=== PATIENT | female | born 1935 | race Caucasian/White ===

== ENCOUNTER 2022-08-08 13:12 | Outpatient (OUT) | payer MEDICARE, SELFPAY ==
--- NOTE | 2022-08-08 13:15 | MM_ITS ---
Patient: NINA GEORGE Exam Date: 08/08/2022 : 1935 Gender:F Ordering : DR YURY MAK D.O. Admission #: [id number] Family : Order #: [id number] CLICK HERE TO VIEW EXAM RADIOLOGY REPORT PROCEDURE: MM TOMOSYNTHESIS SCREENING BI COMPARISON: MG MAMM SCREEN 3D VALERIY CAD, 08/04/2021. INDICATIONS: Screening Calculator Name NCI Breast Cancer Risk Assessment Tool 5 Year Breast Cancer Risk Not Applicable. Lifetime Breast Cancer Risk Not Applicable. Personal Breast Cancer No Personal Ovarian Cancer No Treatments None Family Cancers Sister with breast cancer at age 54; Father with panc/liver cancer at age 76. LOCATION: [facility] BREAST COMPOSITION: Scattered areas fibroglandular density. FINDINGS: DIAGNOSTIC CATEGORY 2--BENIGN FINDING: RIGHT BREAST: No significant suspicious finding. Scattered benign-appearing calcifications are present. No significant change has occurred. LEFT BREAST: No significant suspicious finding. Stable asymmetries. No significant change has occurred. RECOMMENDATIONS: ROUTINE MAMMOGRAM AND CLINICAL EVALUATION IN 12 MONTHS. PLEASE NOTE: A NORMAL MAMMOGRAM DOES NOT EXCLUDE THE POSSIBILITY OF BREAST CANCER. A CLINICALLY SUSPICIOUS PALPABLE LUMP SHOULD BE BIOPSIED. Dictated by: Juan Aviles M.D. on 08/08/2022 at 14:57 Approved by: Juan Aviles M.D. on 08/08/2022 at 15:02
== END 2022-08-08 13:13 ==
LOC: MAMMO 13:12
PROVIDERS: PCP Internal Medicine; Visit Provider Internal Medicine
DX: Z12.31 Encounter for screening mammogram for malignant neoplasm of breast (principal); Z80.3 Family history of malignant neoplasm of breast; Z80.0 Family history of malignant neoplasm of digestive organs
CPT/HCPCS: 77063; 77067

== ENCOUNTER 2022-08-14 08:47 | Day surgery (SDC) | payer MEDICARE, SELFPAY ==
[2022-08-14 09:00] VITALS: BP 137/87; PULSE 62; RESP 16; TEMP 36.3; O2SAT 100
[2022-08-14] MEDS: BUPIVACAINE HCL 0.25% PF 25 MG/10 ML VIAL INJ (09:35)
[2022-08-14] MEDS: TRIAMCINOLONE ACETONIDE 40 MG/ML VIAL INJ (09:36)
[2022-08-14] MEDS: LIDOCAINE HCL 2% PF 100 MG/5 ML VIAL INJ (09:36)
[2022-08-14 09:37] VITALS: BP 148/87; PULSE 78; RESP 18; O2SAT 96
--- NOTE | 2022-08-14 09:38 | W.PM.PROCNOT ---
Date of procedure: 08/14/22 Pre-op diagnosis: lumbobsacral spondylosis Post-op diagnosis: same Procedure: Bilateral L3, 4, 5 medial branch block Medications: Bupivacaine 0.25% 4cc The patient was seen and examined in the preoperative holding area.? An informed consent was obtained and placed on the chart.? The patient was brought to the medical procedure unit and placed in the prone position.? A timeout was completed verifying correct patient, procedure site, positioning, plan, and special equipment.? Using aseptic technique, the needle was placed at left L3. Under direct fluoroscopic visualization a Quincke-tipped spinal needle was advanced to the junction of the superior articulating process with the transverse process at the designated medial branch segment.? Preceded by negative aspiration, the above-mentioned injectate was placed in 1 mL aliquots.? The procedure was repeated at left L4, 5.? The needle was removed and insertion site was covered. The same procedure, at the same levels, was completed on the right side. The patient was taken to the postprocedural recovery area and monitored for an appropriate length of time before found suitable for discharge in the company of a responsible adult. Surgeon: Trudy Bridges Condition: stable
[2022-08-14 11:08] VITALS: BP 146/69; PULSE 68; RESP 18; O2SAT 96
== END 2022-08-14 09:43 | disposition home or self-care (01) ==
PROVIDERS: PCP Internal Medicine; Visit Provider Anesthesiology
DX: M47.817 Spondylosis without myelopathy or radiculopathy, lumbosacral region (principal)
CPT/HCPCS: 64493; 64494

== ENCOUNTER 2022-08-18 14:33 | Emergency (ER) | payer MEDICARE, SELFPAY ==
[2022-08-18] VITALS (11 sets, daily range): BP systolic 129–169; BP diastolic 88–95; PULSE 63–81; RESP 11–22; TEMP 37.1; O2SAT 93–98; BMI 20.8
--- NOTE | 2022-08-18 14:46 | ECG_ITS ---
[facility] Test Date: 2022-08-18 Pat Name: NINA GEORGE Department: Room: - Gender: Female [employer]: : 1935 Requested By: [id number] Order Number: [id number] Reading MD: DORINDA HUDDLESTON Measurements Intervals [place] Rate: 60 P: 52 WY: 130 QRS: 56 QRSD: 78 T: 18 QT: 398 QTc: 400 Interpretive Statements 1100 Sinus rhythm 1102 Sinus arrhythmia 3434 Septal myocardial infarction, age undetermined [address] depression 9150 abnormal ECG No previous ECG available for comparison Electronically Signed On 08-21-2022 7:46:27 EDT by DORINDA HUDDLESTON
--- NOTE | 2022-08-18 14:48 | CT_ITS ---
[address] [address] Patient Name: NINA GEROGE MRN: [id number] date: 1935 Sex: F Assigned Patient Location: ER Current Patient Location: ER Accession/Order Number: [id number] Exam Date: 08/18/2022 14:55 Report Date: 08/18/2022 15:34 At the request of: SANTIAGO GONZALEZ Procedure: CT stroke head/brain wo con EXAMINATION: CT stroke head/brain wo con TECHNIQUE: Axial CT images were obtained through the brain. Sagittal and coronal reformatted images were also obtained. Dose reduction techniques were achieved by using automated exposure control and/or adjustment of mA and/or kV according to patient size and/or use of iterative reconstruction technique. HISTORY: rule out stroke, arm/leg numb tingling COMPARISON: 11/26/2017 FINDINGS: Intracranial Bleed: No evidence for acute intracranial bleed. Intracranial Mass: No evidence for mass lesion. No mass effect or midline shift. Extra-axial spaces: There is mild cerebral atrophy and proportional ventricular enlargement. White/Wal[place] Matter: No acute cortical infarct. Moderate periventricular white matter chronic small vessel ischemic change. Skull/Scalp: No evidence for skull fracture or lesion. Orbits and sinuses: The orbits appear unremarkable. The visualized paranasal sinuses are clear. IMPRESSION: No acute intracranial pathology. Electronically authenticated by: RACHID MANCUSO Date: 08/18/2022 15:34
[2022-08-18 15:05] LABS: Glucometer 106 mg/dL (74-106)
[2022-08-18 15:13] LABS: Basophils Percent Auto 0.5 % (0.2-2.0); Eosinophils Absolute Auto 0.1 10^3/uL (0.0-0.7); Eosinophils Percent Auto 0.9 % (0.9-7.0); Hematocrit 40.2 % (36.0-48.0); Immature Granulocytes Abs Auto 0.04 10^3/uL (0.00-0.03); Immature Granulocytes Pct Auto 0.5 % (0.0-0.5); Lymphocytes Absolute Auto 1.5 10^3/uL (1.2-3.8); Lymphocytes Percent Auto 17.8 % (20.5-60.0); Mean Corpuscular HGB Conc 32.3 g/dL (29.9-35.2); Mean Corpuscular Hemoglobin 28.6 pg (26.7-34.0); Mean Corpuscular Volume 88.5 fL (81.0-99.0); Monocytes Absolute Auto 0.9 10^3/uL (0.3-0.8); Monocytes Percent Auto 11.4 % (1.7-12.0); Neutrophils Absolute Auto 5.7 10^3/uL (1.4-6.5); Neutrophils Percent Auto 68.9 % (43.0-75.0); Platelet Count 221 10^3/uL (150-450); Red Blood Count 4.54 10^6/uL (4.20-5.40); Red Cell Distribution Width 13.4 % (11.0-15.0); White Blood Count 8.2 10^3/uL (4.0-11.0)
[2022-08-18] MEDS: 0.9 % SODIUM CHLORIDE 1,000 ML 100 ML IV (15:16)
[2022-08-18 15:31] LABS: Alanine Aminotransferase 13 U/L (14-59); Albumin Level 3.6 g/dL (3.4-5.0); Alkaline Phosphatase 49 U/L (46-116); Anion Gap 13.3; Aspartate Amino Transferase 15 U/L (15-37); BUN Creatinine Ratio 21.7; Bilirubin Total 0.3 mg/dL (0.2-1.0); Calcium 8.7 mg/dL (8.5-10.1); Carbon Dioxide 26.6 mmol/L (21.0-32.0); Chloride 101 mmol/L (98-107); Estimated GFR (African America >60 (>=60); Estimated GFR (Non-African Ame 58 (>=60); Globulin 3.7 g/dL; Glucose 110 mg/dL (74-106); Magnesium 1.9 mg/dL (1.8-2.4); Partial Thromboplastin Time 26.5 sec (22.3-36.2); Potassium 3.9 mmol/L (3.5-5.1); Prothrombin Time 9.8 sec (9.0-11.6); Sodium 137 mmol/L (136-145); Total Protein 7.3 g/dL (6.4-8.2); Troponin I High Sensitivity 16.3 pg/mL (4.0-51.3)
[2022-08-18 15:32] LABS: INR <0.93
--- NOTE | 2022-08-18 16:02 | XR_ITS ---
[address] [address] Patient Name: NINA GEORGE MRN: [id number] date: 1935 Sex: F Assigned Patient Location: ER Current Patient Location: ER Accession/Order Number: [id number] Exam Date: 08/18/2022 16:00 Report Date: 08/18/2022 16:11 At the request of: SANTIAGO GONZALEZ Procedure: XR chest 1V EXAM: XR chest 1V HISTORY: cva COMPARISON: 02/21/2021 TECHNIQUE: Single view of the chest FINDINGS: Cardiomegaly. No focal consolidation, pleural effusion, pulmonary congestion or pneumothorax. Atherosclerotic calcification of the aorta. IMPRESSION: No acute findings. Electronically authenticated by: VICKI UGARTE Date: 08/18/2022 16:11
--- NOTE | 2022-08-18 16:12 | CT_ITS ---
[address] [address] Patient Name: NINA GEORGE MRN: [id number] date: 1935 Sex: F Assigned Patient Location: ER Current Patient Location: Accession/Order Number: [id number] Exam Date: 08/18/2022 16:00 Report Date: 08/18/2022 16:59 At the request of: SANTIAGO GONZALEZ Procedure: CT angio head EXAMINATION: CT angio head, CT angio neck; [id number], [id number] COMPARISON: Correlate with same day noncontrast head CT. Carotid ultrasound 11/28/2018. CLINICAL STATEMENT: arm leg numb tingle TECHNIQUE: Helical CT images of the head and neck were obtained after the administration of IV contrast. Multiplanar reformats and maximum intensity projection images were generated at the scanner. 3-D imaging was performed. Dose reduction technique used: Automated exposure control and/or adjustment of the mA and/or kV according to patient size and/or use of iterative reconstruction technique. Findings: CTA of the neck: Aortic arch: Conventional arch anatomy. No significant stenosis of the brachiocephalic artery. 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 Right common carotid artery: No significant stenosis. Right internal carotid artery: Moderate atherosclerosis. No hemodynamically significant stenosis, with degree of narrowing in the <50% range. Left common carotid artery: Complete occlusion from its origin to the bifurcation. Left internal carotid artery: Minimal reconstitution. Vertebral arteries: No hemodynamically significant stenosis. * Note: Measurements of stenoses were done in accordance with NASCET criteria. That is, the stenosis is calculated from the ratio of the linear luminal diameter of the narrowest segment of the diseased portion of the artery compared to the diameter of the artery beyond or distal to any post stenotic dilatation. CTA of the head ([place], COW): Right anterior circulation: Normal course and caliber of the right intracranial internal carotid artery. Conventional branching anatomy into the anterior and middle cerebral arteries. No significant stenosis. No aneurysm. Left anterior circulation: Reconstitution of the left anterior circulation via the anterior commuting artery. Conventional branching anatomy into the anterior and middle cerebral arteries. No significant stenosis. No aneurysm. Anterior communicating artery: Present. No aneurysm. Posterior communicating arteries: May be congenitally absent or hypoplastic. Posterior circulation: No significant stenosis. No aneurysm. Soft tissues of the neck: No other significant findings. Visualized lung apices: Clear. Osseous: No acute findings. Impression: 1. 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 The left anterior circulation is fed via the anterior communicating artery from the right. 2. No intracranial large vessel occlusion. 3. No significant stenosis of the right carotid artery. 4. Vertebral arteries are within normal limits. Electronically authenticated by: AMY JACKSON Date: 08/18/2022 16:59
--- NOTE | 2022-08-18 16:12 | CT_ITS ---
[address] [address] Patient Name: NINA GEORGE MRN: [id number] date: 1935 Sex: F Assigned Patient Location: ER Current Patient Location: Accession/Order Number: [id number] Exam Date: 08/18/2022 16:00 Report Date: 08/18/2022 16:59 At the request of: SANTIAGO GONZALEZ Procedure: CT angio neck EXAMINATION: CT angio head, CT angio neck; [id number], [id number] COMPARISON: Correlate with same day noncontrast head CT. Carotid ultrasound 11/28/2018. CLINICAL STATEMENT: arm leg numb tingle TECHNIQUE: Helical CT images of the head and neck were obtained after the administration of IV contrast. Multiplanar reformats and maximum intensity projection images were generated at the scanner. 3-D imaging was performed. Dose reduction technique used: Automated exposure control and/or adjustment of the mA and/or kV according to patient size and/or use of iterative reconstruction technique. Findings: CTA of the neck: Aortic arch: Conventional arch anatomy. No significant stenosis of the brachiocephalic artery. 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 Right common carotid artery: No significant stenosis. Right internal carotid artery: Moderate atherosclerosis. No hemodynamically significant stenosis, with degree of narrowing in the <50% range. Left common carotid artery: Complete occlusion from its origin to the bifurcation. Left internal carotid artery: Minimal reconstitution. Vertebral arteries: No hemodynamically significant stenosis. * Note: Measurements of stenoses were done in accordance with NASCET criteria. That is, the stenosis is calculated from the ratio of the linear luminal diameter of the narrowest segment of the diseased portion of the artery compared to the diameter of the artery beyond or distal to any post stenotic dilatation. CTA of the head ([place], COW): Right anterior circulation: Normal course and caliber of the right intracranial internal carotid artery. Conventional branching anatomy into the anterior and middle cerebral arteries. No significant stenosis. No aneurysm. Left anterior circulation: Reconstitution of the left anterior circulation via the anterior commuting artery. Conventional branching anatomy into the anterior and middle cerebral arteries. No significant stenosis. No aneurysm. Anterior communicating artery: Present. No aneurysm. Posterior communicating arteries: May be congenitally absent or hypoplastic. Posterior circulation: No significant stenosis. No aneurysm. Soft tissues of the neck: No other significant findings. Visualized lung apices: Clear. Osseous: No acute findings. Impression: 1. 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 The left anterior circulation is fed via the anterior communicating artery from the right. 2. No intracranial large vessel occlusion. 3. No significant stenosis of the right carotid artery. 4. Vertebral arteries are within normal limits. Electronically authenticated by: AMY JACKSON Date: 08/18/2022 16:59
--- NOTE | 2022-08-18 17:17 | ED.GENADUL1 ---
HPI - General Adult General Chief complaint: Neuro Symptoms/Deficit Stated complaint: LOWER EXTREMITY WEAKNESS LEFT FOOT Time Seen by Provider: 08/18/22 14:44 Source: patient Mode of arrival: walk-in Limitations: no limitations History of Present Illness HPI narrative: Patient is a 86-year-old female who is presenting To the Emergency Room with intermittent numbness and tingling in her left arm and leg this been going on since Sunday. It has been more consistent today. Patient also has intermittent headaches as well for the past week or 2. Patient was a home by herself. It is a friend who is a local neighbor and long-time family friend with her at bedside as well. Patient currently has no headache, no neck pain. Patient did have a procedure on Sunday, a lumbar sacral spondylosis injection of bupivacaine by pain management at the [facility]. Patient had left-sided neck pain that Started evening of Sunday night and it was better on Sunday morning somewhat. Patient Did call the pain management office, and patient was told that she was in a awkward position during the injection/epidural in the left side of her neck could be hurting in that position which made sense this patient. On Sunday the pain got better. Patient has a history of intermittent headaches. Patient's headache is mild, patient headache. Patient says that she has a history of transient ischemic attacks, she takes a baby aspirin daily. She takes no other blood thinners. Patient wanted to see Dr. jorge in the office today, he was not in the office and was recommended by office staff to come to the Emergency Room. Patient has no vision or hearing changes. No surgical speech, facial droop. No difficulty using her arms, legs, or any other acute complaints. Patient has no motor or sensory deficits to her arms or legs, she does feel some intermittent numbness and tingling to her left arm and left leg. No recent falls, no trauma, no traveling, no other acute complaints. Related Data Home Medications Medication Instructions Recorded Confirmed acetaminophen 650 mg 650 mg PO Q8H PRN pain 08/10/22 08/14/22 tablet,extended release (Tylenol Arthritis Pain) alprazolam 0.25 mg tablet (Xanax) 0.25 mg PO DAILY PRN anxiety 08/10/22 08/14/22 aspirin 325 mg tablet 325 mg PO DAILY 08/10/22 08/14/22 dorzolamide 22.3 mg-timolol 6.8 ophthalmic (eye) 08/10/22 mg/mL eye drops omeprazole 40 mg capsule,delayed mg 08/10/22 release Allergies Allergy/AdvReac Type Severity Reaction Status Date / Time prednisone Allergy Mild dyspnea Verified 08/10/22 10:25 Review of Systems ROS Narrative All systems are negative except as noted/marked. All systems reviewed and otherwise negative. [facility] Medical History (Updated 08/18/22 @ 17:40 by Rubio Schmid MD) Surgical History (Updated 08/10/22 @ 10:37 by Dominique Haque) Social History Smoking status: Never smoker Exam Narrative Exam Narrative: Nurses note and vital signs reviewed and patient is not hypoxic. General: The patient appears well and in no apparent distress. Patient is resting comfortably on cart. Patient is not toxic, lethargic, or listless Skin: Warm, dry, no pallor noted. There is no rash noted. No petechiae, purpura. Head: Normocephalic, atraumatic, Patient has no carotid bruits bilateral. Patient has no midline or paracervical tenderness to palpation. Full range of motion of cervical spinal no difficulty. Eye: Normal conjunctiva, no drainage, EOMI. PERRL. Pupils are 3/2, equal, reactive. Ears, Nose, Mouth, and Throat: oral mucosa is moist. Nares patent. Mouth without vesicles. Cardiovascular: Regular Rate and Rhythm, no murmur, gallop, rub Respiratory: Patient is in no distress, no accessory muscle use, lungs are clear to auscultation, no wheezing, rales or rhonchi Back: non-tender, no CVA tenderness bilaterally to percussion. No CT LS midline pain. Patient has no redness, no bruising, no ecchymosis, no hematoma, no pain to lumbar spine where patient had her injection. GI: soft, no tenderness to palpation, no masses appreciated. No rebound, guarding, or rigidity noted. No flank pain bilateral, No distention Musculoskeletal: Patient has full range of motion of all of the extremities, no motor, sensory, or focal neurological deficits Neurological: A&O x3, normal speech, NIH 0 Psychiatric: Cooperative Constitutional Vital Signs - 24 hr 08/18/22 14:39 08/18/22 15:25 08/18/22 15:30 Temperature 98.7 F Pulse Rate 74 72 Pulse Rate [Monitor] 81 Respiratory Rate 16 17 19 Blood Pressure Blood Pressure [Left Arm] 169/88 H Pulse Oximetry 98 94 L 95 Oxygen Delivery Method Room Air 08/18/22 15:40 08/18/22 15:50 08/18/22 16:15 Temperature Pulse Rate 63 67 72 Pulse Rate [Monitor] Respiratory Rate 21 18 11 L Blood Pressure Blood Pressure [Left Arm] Pulse Oximetry 95 97 93 L Oxygen Delivery Method 08/18/22 16:16 08/18/22 16:17 08/18/22 16:32 Temperature Pulse Rate 70 66 64 Pulse Rate [Monitor] Respiratory Rate 19 22 16 Blood Pressure 144/88 H 129/95 H Blood Pressure [Left Arm] Pulse Oximetry 98 98 97 Oxygen Delivery Method 08/18/22 16:32 08/18/22 17:01 Temperature Pulse Rate 71 66 Pulse Rate [Monitor] Respiratory Rate 13 21 Blood Pressure 129/95 H Blood Pressure [Left Arm] Pulse Oximetry 98 98 Oxygen Delivery Method Course Vital Signs Vital signs: Vital Signs Temperature 98.7 F 08/18/22 14:39 Pulse Rate 81 08/18/22 14:39 Respiratory Rate 16 08/18/22 14:39 Blood Pressure 169/88 H 08/18/22 14:39 Pulse Oximetry 98 08/18/22 14:39 Oxygen Delivery Method Room Air 08/18/22 14:39 Temperature 98.7 F 08/18/22 14:39 Pulse Rate 66 08/18/22 17:01 Respiratory Rate 21 08/18/22 17:01 Blood Pressure 129/95 H 08/18/22 16:32 Pulse Oximetry 98 08/18/22 17:01 Oxygen Delivery Method Room Air 08/18/22 14:39 Medical Decision Making MDM Narrative Medical decision making narrative: Patient's initial CT of the brain shows no acute pathology. CTA of the head and neck shows chronic occlusion of the entirety of the left common carotid artery along with minimal reconstitution of entirety of the left internal carotid artery. This was confirmed by carotid ultrasound on 11/28/2018. The left anterior circulation is fed via the anterior communicating artery from the right. No other large acute abnormalities. Chest x-ray shows no acute findings. See Official results of chest x-ray, and the CTA of the head and neck. I spoke to Dr Jorge through texting. He is aware of patient's Emergency Room visit. He agrees the patient starting a full aspirin. He will see the patient in the office on Sunday or Sunday. Patient was offered admission versus going home. Patient does not want to be admitted to the hospital.Patient is completely asymptomatic at discharge. Patient's NIH has remained 0 throughout the Emergency Room process. Patient's chest x-ray, EKG, lab work shows no acute changes. Patient is very relieved no signs of acute strroke. Patient feels comfortable going home, she does not want to be admitted overnight. Patient is aware of her completely occluded left carotid artery. Patient knows this. Patient is given a copy of her CAT scan. Patient is aware to take 3 additional baby aspirin tonight and start taking 4 baby aspirin tomorrow and therefore daily 2 equal full aspirin. Patient will see Dr. jorge in the office on Sunday or Sunday. Patient's friend at bedside and patient and no questions at discharge. Lab Data Lab results reviewed: Yes I reviewed the patient's lab results Labs: Lab Results 08/18/22 08/18/22 Range/Units 15:03 15:04 WBC 8.2 (4.0-11.0) 10^3/uL RBC 4.54 (4.20-5.40) 10^6/uL Hgb 13.0 (12.0-16.0) g/dL Hct 40.2 (36.0-48.0) % MCV 88.5 (81.0-99.0) fL MCH 28.6 (26.7-34.0) pg MCHC 32.3 (29.9-35.2) g/dL RDW 13.4 (11.0-15.0) % Plt Count 221 (150-450) 10^3/uL MPV 10.0 (9.5-13.5) fL Neut % (Auto) 68.9 (43.0-75.0) % Lymph % (Auto) 17.8 L (20.5-60.0) % [place] % (Auto) 11.4 (1.7-12.0) % Eos % (Auto) 0.9 (0.9-7.0) % Baso % (Auto) 0.5 (0.2-2.0) % Neut # (Auto) 5.7 (1.4-6.5) 10^3/uL Lymph # (Auto) 1.5 (1.2-3.8) 10^3/uL [place] # (Auto) 0.9 H (0.3-0.8) 10^3/uL Eos # (Auto) 0.1 (0.0-0.7) 10^3/uL Baso # (Auto) 0.0 (0.0-0.1) 10^3/uL Abs Immat Gran (auto) 0.04 H (0.00-0.03) 10^3/uL Imm/Tot Granulo (auto) 0.5 (0.0-0.5) % PT 9.8 (9.0-11.6) sec INR <0.93 APTT 26.5 (22.3-36.2) sec Sodium 137 (136-145) mmol/L Potassium 3.9 (3.5-5.1) mmol/L Chloride 101 (98-107) mmol/L Carbon Dioxide 26.6 (21.0-32.0) mmol/L Anion Gap 13.3 BUN 20.0 H (7.0-18.0) mg/dL Creatinine 0.92 (0.55-1.02) mg/dL Est GFR ( Amer) >60 (>=60) Est GFR (Non-Af Amer) 58 L (>=60) BUN/Creatinine Ratio 21.7 Glucose 110 H (74-106) mg/dL Calcium 8.7 (8.5-10.1) mg/dL Magnesium 1.9 (1.8-2.4) mg/dL Total Bilirubin 0.3 (0.2-1.0) mg/dL AST 15 (15-37) U/L ALT 13 L (14-59) U/L Alkaline Phosphatase 49 (46-116) U/L Troponin I High Sens 16.3 (4.0-51.3) pg/mL Total Protein 7.3 (6.4-8.2) g/dL Albumin 3.6 (3.4-5.0) g/dL Globulin 3.7 g/dL Albumin/Globulin Ratio 1.0 POC Glucose 106 (74-106) mg/dL ECG Data Attestation: I personally reviewed and interpreted this ECG as follows: Interpretation: EKG interpretation. Normal sinus rhythm at 60 beats a minute. Normal axis deviation. No acute ST elevation, no acute ectopy. QTC of 400. Artifact noted. Discharge Plan Discharge Chief Complaint: Neuro Symptoms/Deficit Clinical Impression: Paresthesia, Peripheral neuropathy Patient Disposition: Home, Self-Care Time of Disposition Decision: 17:41 Prescriptions / Home Meds: No Action omeprazole 40 mg capsule,delayed release(DR/EC) dorzolamide-timolol 22.3-6.8 mg/mL drops OPHTHALMIC (EYE) aspirin 325 mg tablet 325 mg PO DAILY alprazolam [Xanax] 0.25 mg tablet 0.25 mg PO DAILY PRN (Reason: anxiety) acetaminophen [Tylenol Arthritis Pain] 650 mg tablet extended release 650 mg PO Q8H PRN (Reason: pain) Instructions: Peripheral Neuropathy (ED), Paresthesia (ED) Additional Instructions: Start taking a full aspirin daily. Take 3 more baby aspirin tonight when he go home. Follow-up in the office with Dr. Jorge on Sunday or Sunday. If any other significant acute symptoms occur of slurred speech, facial droop, loss of function of the arm or leg or any other acute concerns, return to Emergency Room for the REevaluation. Dr. Jorge will be back at the office on Sunday. I gave a copy of your CAT scan of the arteries of her head and neck to you as well. Stand Alone Forms: Portal Instructions Referrals: Erik Jorge DO [Primary Care Provider] - 1 week Discharge Date/Time: 08/18/22 17:55
== END 2022-08-18 17:55 | disposition home or self-care (01) ==
PROVIDERS: Emergency Provider Emergency Medicine; PCP Internal Medicine
DX: R20.2 Paresthesia of skin (principal); G62.9 Polyneuropathy, unspecified; Z86.73 Personal history of transient ischemic attack (TIA), and cerebral infarction without residual deficits; Z79.82 Long term (current) use of aspirin; Z79.899 Other long term (current) drug therapy; I65.22 Occlusion and stenosis of left carotid artery
CPT/HCPCS: 36415; 36416; 70450; 70496; 70498; 71045; 80053; 83735; 84484; 85025; 85610; 85730; 93005; 99285; Q9967

== ENCOUNTER 2022-09-12 12:41 | Outpatient (OUT) | payer MEDICARE, SELFPAY ==
--- NOTE | 2022-09-12 12:51 | MR_ITS ---
[address] [address] Patient Name: NINA GEORGE MRN: [facility]:[id number] date: 1935 Sex: F Assigned Patient Location: MRI Current Patient Location: Accession/Order Number: [id number] Exam Date: 09/12/2022 12:55 Report Date: 09/13/2022 07:49 At the request of: YURY MAK Procedure: MR lumbar spine wo con EXAMINATION: MR lumbar spine wo con HISTORY: Lumbar Spondylosis M47.816, Acute Left Side Low Back Pain ; left leg pain and weakness COMPARISON: No relevant comparison available. TECHNIQUE: A variety of imaging planes and parameters were utilized for visualization of suspected pathology. FINDINGS: For the purposes of numbering, sagittal T2 image # extends from the vertebral body superiorly to the level inferiorly. PARASPINAL AREA: Normal with no visible mass. BONES: Scoliotic curvature of thoracolumbar spine. Mild grade 1 retrolisthesis of L1 on 2 and L2 on 3. No compression fracture or bone lesion. CORD/CAUDA EQUINA: Normal caliber, contour, and signal intensity. DISC LEVELS: 12-L1: Early degenerative disc disease is present without focal protrusion or neural impingement. L1-L2: Moderate to marked right foramen narrowing. Mild central canal and left foramen narrowing. Mild diffuse disc bulging with moderate facet arthropathy on right. L2-L3: Mild central canal and bilateral foramen narrowing. Mild diffuse disc bulging and moderate disc height reduction. Moderate degenerative facet arthropathy bilaterally. L3-L4: Mild central canal, mild right, moderate left foramen narrowing. Mild diffuse disc bulging and mild disc height reduction. Mild degenerative facet arthropathy bilaterally. L4-L5: Mild central canal and bilateral foramen narrowing. Mild diffuse disc bulging with minimal disc height reduction. Moderate degenerative facet arthropathy, left greater than right. L5-S1: Moderate left foramen narrowing without significant central canal or right foramen narrowing. Mild diffuse disc bulging without disc height reduction. Marked left degenerative facet arthropathy. MR/MR lumbar spine wo con IMPRESSION: 1. Scoliotic curvature of spine and multilevel grade 1 retrolisthesis. No acute bone abnormality. 2. Multilevel moderate foramen narrowing secondary to degenerative disc disease, facet arthropathy, and scoliotic curvature. No significant central canal stenosis. Electronically authenticated by: ENRIQUETA ZHENG Date: 09/13/2022 07:49
[2022-09-12 15:25] LABS: Thyroid Stimulating Hormone 1.438 uIU/mL (0.358-3.740)
[2022-09-13 04:10] LABS: Vitamin B12 476 pg/mL (232-1245)
[2022-09-13 15:09] LABS: Free Kappa Lt Chains,S 27.9 mg/L (3.3-19.4); Free Lambda Lt Chains,S 19.1 mg/L (5.7-26.3); Kappa/Lambda Ratio,S 1.46 (0.26-1.65)
[2022-09-13 16:10] LABS: Albumin 3.8 g/dL (2.9-4.4); Alpha-1-Globulin 0.3 g/dL (0.0-0.4); Immunoglobulin A, Qn, Serum 58 mg/dL (64-422); Immunoglobulin G, Qn, Serum 1034 mg/dL (586-1602); Immunoglobulin M, Qn, Serum 96 mg/dL (26-217)
== END 2022-09-12 12:42 | disposition home or self-care (01) ==
LOC: MRI 12:41
PROVIDERS: PCP Internal Medicine; Visit Provider Internal Medicine
DX: M47.816 Spondylosis without myelopathy or radiculopathy, lumbar region (principal); M54.42 Lumbago with sciatica, left side; R20.2 Paresthesia of skin; R53.83 Other fatigue; D63.8 Anemia in other chronic diseases classified elsewhere; M41.9 Scoliosis, unspecified; M43.16 Spondylolisthesis, lumbar region; M51.36 Other intervertebral disc degeneration, lumbar region; M99.73 Connective tissue and disc stenosis of intervertebral foramina of lumbar region
CPT/HCPCS: 36415; 72148; 82607; 82728; 82784; 84155; 84165; 84443; 86334

== ENCOUNTER 2023-01-31 15:10 | Outpatient (OUT) | payer MEDICARE, SELFPAY ==
--- NOTE | 2023-01-31 15:17 | XR_ITS ---
[address] [address] Patient Name: NINA GEORGE MRN: [id number] date: 1935 Sex: F Assigned Patient Location: [facility] Current Patient Location: Accession/Order Number: [id number] Exam Date: 01/31/2023 15:25 Report Date: 02/02/2023 11:10 At the request of: YURY MAK Procedure: XR ribs RT min 3V w CXR1V EXAMINATION: XR ribs RT min 3V w CXR1V HISTORY: Chest Wall Pain R07.89 ; acute lower anterior right rib pain since falling 6 days ago COMPARISON: XR chest 08/18/2022 FINDINGS: LUNGS: Hyperexpanded lungs without acute infiltrates. PLEURA: No pneumothorax, effusion, or pleural thickening. MEDIASTINUM: No visible mass or adenopathy. CARDIAC: Stable cardiomegaly. Atherosclerotic disease of aortic arch. RIBS: Nondisplaced fracture anterior lateral right 5th rib. OTHER: Negative. XR/XR ribs RT min 3V w CXR1V IMPRESSION: 1. Acute, nondisplaced fracture of the anterolateral right 5th rib. 2. No acute cardiopulmonary process. Electronically authenticated by: ENRIQUETA ZHENG Date: 02/02/2023 11:10
== END 2023-01-31 15:11 | disposition home or self-care (01) ==
LOC: RAD 15:12
PROVIDERS: PCP Internal Medicine; Visit Provider Internal Medicine
DX: R07.89 Other chest pain (principal); S22.31XA Fracture of one rib, right side, initial encounter for closed fracture
CPT/HCPCS: 71101

== ENCOUNTER 2023-02-20 14:37 | Outpatient (OUT) | payer MEDICARE, SELFPAY ==
[2023-02-20 15:12] LABS: Basophils Percent Auto 0.6 % (0.2-2.0); Eosinophils Absolute Auto 0.2 10^3/uL (0.0-0.7); Eosinophils Percent Auto 3.9 % (0.9-7.0); Hematocrit 39.6 % (36.0-48.0); Hemoglobin 12.2 g/dL (12.0-16.0); Immature Granulocytes Abs Auto 0.02 10^3/uL (0.00-0.03); Immature Granulocytes Pct Auto 0.4 % (0.0-0.5); Lymphocytes Absolute Auto 1.3 10^3/uL (1.2-3.8); Lymphocytes Percent Auto 24.1 % (20.5-60.0); Mean Corpuscular HGB Conc 30.8 g/dL (29.9-35.2); Mean Corpuscular Hemoglobin 28.8 pg (26.7-34.0); Mean Corpuscular Volume 93.6 fL (81.0-99.0); Mean Platelet Volume 9.9 fL (9.5-13.5); Monocytes Absolute Auto 0.6 10^3/uL (0.3-0.8); Monocytes Percent Auto 12.2 % (1.7-12.0); Neutrophils Absolute Auto 3.1 10^3/uL (1.4-6.5); Neutrophils Percent Auto 58.8 % (43.0-75.0); Platelet Count 204 10^3/uL (150-450); Red Blood Count 4.23 10^6/uL (4.20-5.40); Red Cell Distribution Width 13.6 % (11.0-15.0); White Blood Count 5.2 10^3/uL (4.0-11.0)
[2023-02-20 15:33] LABS: Anion Gap 10.9; BUN Creatinine Ratio 14.7; Calcium 8.9 mg/dL (8.5-10.1); Carbon Dioxide 28.6 mmol/L (21.0-32.0); Chloride 102 mmol/L (98-107); Estimated GFR (African America 57 (>=60); Estimated GFR (Non-African Ame 47 (>=60); Glucose 101 mg/dL (74-106); Potassium 3.5 mmol/L (3.5-5.1); Sodium 138 mmol/L (136-145)
== END 2023-02-20 14:38 | disposition home or self-care (01) ==
LOC: LAB 14:39
PROVIDERS: PCP Internal Medicine; Visit Provider Internal Medicine
DX: E55.9 Vitamin D deficiency, unspecified (principal); I10 Essential (primary) hypertension; D50.8 Other iron deficiency anemias
CPT/HCPCS: 36415; 80048; 82306; 82728; 85025

== ENCOUNTER 2023-04-18 07:31 | Outpatient (RCR) | payer MEDICARE, SELFPAY ==
[2023-04-18 13:30] VITALS: BP 133/82; PULSE 69; RESP 14; TEMP 35.7; O2SAT 96
[2023-04-18 14:12] LABS: BUN Creatinine Ratio 20.4; Chloride 105 mmol/L (98-107); Estimated GFR (African America >60 (>=60); Estimated GFR (Non-African Ame 57 (>=60); Glucose 87 mg/dL (74-106); Sodium 141 mmol/L (136-145)
--- NOTE | 2023-04-18 14:31 | PC.NURSE ---
1330: Pt to [facility] amb. for injection. Seated in recliner. VSS. Blood drawn per this RN to check calcium and creatinine level prior to Prolia injection. Pt. tolerated with no c/o pain. Pressure to site. Pt. given warm blanket. Declines food or snack.
[2023-04-18] MEDS: DENOSUMAB 60 MG/ML SYRINGE SQ (14:42)
--- NOTE | 2023-04-18 14:46 | PC.NURSE ---
1440: Pt. medicated with Prolia 60mg sq to right upper arm. No bleeding to site. Pt. tolerated without c/o. 1444: Pt. d/c'd amb. to home.
== END 2023-05-03 12:00 | disposition home or self-care (01) ==
LOC: LAB 07:31
PROVIDERS: PCP Internal Medicine; Visit Provider Internal Medicine
DX: M80.00XD Age-related osteoporosis with current pathological fracture, unspecified site, subsequent encounter for fracture with routine healing (principal); E55.9 Vitamin D deficiency, unspecified
CPT/HCPCS: 36415; 80048; 82306; 96372; J0897

== ENCOUNTER 2023-05-11 14:19 | Outpatient (OUT) | payer MEDICARE, SELFPAY ==
--- NOTE | 2023-05-11 | ECG_ITS ---
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
--- OUTSIDE RECORDS SUMMARY | 2023-05-11 14:39 | XMS_ITS | CCD ---
Author Name Unknown Address [address] [place] [address] Organization [facility] Care Team Providers Care Vp Name Role Phone Erik Zimmerman DO Primary Care Provider ERIK ZIMMERMAN Primary Care Unavailable KUNTE, BINH Referring Unavailable BALL, ERIK E Primary Care Unavailable KUNTE, BINH Referring Unavailable BALL, ERIK E Primary Care Unavailable FIORELLA GONZALEZ Attending Unavailable KUNTE, BINH Referring Unavailable KUNTE, BINH Referring Unavailable BALL, ERIK Anderson Primary Care Unavailable KUNTE, BINH Attending Unavailable BALL, ERIK Anderson Primary Care Unavailable KUNTE, BINH Referring Unavailable BALL, ERIK E Primary Care Unavailable BALL, ERIK E Referring Unavailable KUNTE, BINH Attending Unavailable BALL, ERIK Anderson Primary Care Unavailable FIORELLA GONZALEZ Referring Unavailable KUNTE, BINH Referring Unavailable BALL, ERIK Anderson Primary Care Unavailable KUNTE, BINH Referring Unavailable BALL, ERIK Anderson Primary Care Unavailable KUNTE, BINH Attending Unavailable BALL, ERIK Anderson Primary Care Unavailable KUNTE, BINH Referring Unavailable Ball, Erik Unavailable DR ERIK ZIMMERMAN Primary Care Unavailable GIEDRAITIS, ANDRI Admitting Unavailable GIEDRAITIS, ANDTERRI Attending Unavailable BALL, DR COTTON Admitting Unavailable BALL, DR COTTON Primary Care Unavailable BALL, DR COTTON Consulting Unavailable BALL, DR COTTON Attending Unavailable BALL, DR COTTON Attending Unavailable BALL, DR COTTON Admitting Unavailable BALL, DR COTTON Primary Care Unavailable BALL, DR COTTON Consulting Unavailable BALL, DR COTTON Attending Unavailable BALL, DR COTTON Admitting Unavailable BALL, DR COTTON Primary Care Unavailable BALL, DR COTTON Consulting Unavailable BALL, DR COTTON Attending Unavailable BALL, DR COTTON Admitting Unavailable BALL, DR COTTON Primary Care Unavailable BALL, DR COTTON Consulting Unavailable BALL, DR COTTON Attending Unavailable BALL, DR COTTON Primary Care Unavailable BALL, DR COTTON Admitting Unavailable BALL, DR COTTON Consulting Unavailable DE DIOS, DIA Consulting Unavailable BALL, DR COTTON Attending Unavailable BALL, DR COTTON Primary Care Unavailable BALL, DR COTTON Admitting Unavailable BALL, DR COTTON Consulting Unavailable BALL, DR COTTON Attending Unavailable BALL, DR COTTON Admitting Unavailable BALL, DR COTTON Primary Care Unavailable BALL, DR COTTON Attending Unavailable BALL, DR COTTON Primary Care Unavailable BALL, DR COTTON Admitting Unavailable BALL, DR COTTON Consulting Unavailable ZIEBER, DR ENRIQUETA Louis Consulting Unavailable MADAI, DR Elian Louis Admitting Unavailable MADAI, DR Elian Louis Consulting Unavailable BALL, DR COTTON Primary Care Unavailable MADAI, DR Elian Louis Attending Unavailable BALL, DR COTTON Consulting Unavailable BALL, DR COTTON Primary Care Unavailable BALL, DR COTTON Attending Unavailable BALL, DR OCTTON Admitting Unavailable Cyrus BELLAMY, Trudy Anton Attending Unavailable Gichen BELLAMY, Trudy Anton Attending Unavailable Allergies Allergy Classification Reported Allergen(s) Allergy Type Date of Onset Reaction(s) Facility (13 sources) predniSONE; Translations: [PREDNISONE] Drug Allergy 4 Other: See Comments [facility] (13 sources) Eye Drops Relief; Translations: [EYE DROPS RELIEF] Drug Allergy 4 Unknown [facility] (2 sources) predniSONE Drug Allergy 4 [facility] Medications Current Medications Medication Drug Class(es) Dates Sig (Normalized) Sig (Original) ALPRAZolam 0.25 mg oral tablet (20 sources) Benzodiazepine Start: 09-18-2022 take 1 tablet by mouth every eight hours as needed for anxiety ALPRAZolam 0.25 mg TAKE ONE TABLET BY MOUTH EVERY 8 HOURS NEEDED FOR ANXIETY Sep, Active take 1 tablet by bernice th every twelve hours ALPRAZolam 0.25 MG 1 tablet Orally Twice a day Active take 1 tablet by bernice th every eight hours as needed ALPRAZolam (XANAX) 0.25 mg tablet Take 0 .25 mg by mouth three times daily as needed. 0 Active Comment on above: Take 0.25 mg by mout h three times daily as needed. Aspirin (20 sources) Platelet Aggregation Inhibitor, Nonstero idal Anti-inflammatory Drug Baby Aspirin Act corinne take 1 tablet by mouth once jose manuel y aspirin, enteric coated (ASPIRIN, ENTERIC COATED) 81 mg EC tablet Take 81 mg by mouth once daily. 0 Active take 1 tablet by mouth once jose manuel y aspirin 81 mg chewable tablet Take 81 mg by mouth once daily. 0 Active Comment on above: Take 81 mg by mouth once daily. Calcium (15 sources) Phosphate Binder, Calcium Calcium Active famotidine 20 mg oral tablet (17 sources) Histamine-2 Receptor Antagonist Start: 09-26-2021 End: 10-26-2021 take 1 tablet by mouth twice daily famotidine (PEPCID) 20 mg tablet Take 1 tablet by mouth twice daily. 60 tablet 3 09/26/2021 10/26/2021 Active Start: 09-01-2021 End: 09-26-2021 take 1 tablet by mouth every twenty-four hours Famotidine 40 MG 1 tablet at bedtime Orally Once a day Aug, Active Comment on above: Take 1 tablet by bernice th twice daily. TAKE ONE TABLET BY M OUTH ONCE DAILY AT BEDTIME FOR 30 DAYS fluticasone propionate 0.05 mg/actuat metered dose nasal spray (15 sources) Corticosteroid Start: 03-07-2022 take 2 spray(s) nasal route once daily Start: 03-07-2022 take 2 spray(s) nasal route on ce daily lisinopril 2.5 mg oral tablet (14 sources) Angiotensin Converting Enzyme Inhibitor Start: 08-30-2022 take 1 tablet by mouth every twenty-four hours Lisinopril 2.5 MG 1 tablet Orally Once a day for 30 days Aug, Active Start: 05-29-2014 lisinopril (ZE STRIL, PRINIVIL) 5 mg tablet Take 2.5 mg in the morning, take BP at 4p.m., if elevated over 145 mm/Hg systolic, take another 2.5 mg. 0 05/29/2014 Active Comment on above: Take 2.5 mg in the m orning, take BP at 4p.m., if elevated over 145 mm/Hg systolic, take another 2.5 mg. Multivitamin/Iron (15 sources) Multivitamin/Iro n Active naproxen sodium 220 mg oral tablet (9 sources) Nonsteroidal Anti-inflammatory Drug Start: 10-30-2022 take 1 tablet by mouth once at bedtime as needed Aleve 220 MG 1 tablet with food or milk as needed Orally q HS w/ pepcid Oct, Active omeprazole 40 mg delayed release oral capsule (20 sources) Proton Pump Inhibitor Start: 10-19-2021 take 1 capsule by mouth once daily Omeprazole 40 MG 1 capsule 30 minutes before morning meal Orally Once a day for 30 days Oct, Active PriLOSEC Not-Adin ing End: 09-26-2021 take 1 capsule by mouth once daily omeprazole (PRILOSEC) 20 mg capsule Take 20 mg by mouth once daily. 0 09/26/2021 Discontinued (Changing Therapy/Dosage Form) Comment on above: Take 20 mg by mouth once daily. Completed/Discontinued Medications Medication Drug Class(es) Dates Sig (Normalized) Sig (Original) Acetaminophen (12 sources) ACETAMINOPHEN (TYLENOL 8 HOUR ORAL) Take by mouth as needed. 0 Active Comment on above: Take by mouth as nee ded. calcium carbonate 1500 mg oral tablet (1 source) End: 06-14-2021 take 1 tablet by mouth once daily calcium carbonate (CALTRATE) 600 mg (1,500 mg) tab Take 600 mg by mouth once daily. 0 06/14/2021 Discontinued Comment on above: Take 600 mg by mouth once daily. cholecalciferol 0.125 mg oral tablet (1 source) Vitamin D End: 06-14-2021 cholecalciferol (VITAMIN D-3) 5,000 unit tab Take 5,000 mg by mouth once daily. 0 06/14/2021 Discontinued Comment on above: Take 5,000 mg by bernice th once daily. dorzolamide 20 mg/ml / timolol 5 mg/ml ophthalmic solution (12 sources) Carbonic Anhydrase Inhibitor, beta-Adrenergic Monie Start: 05-12-2021 take 1 drop(s) into the eye(s) twice daily dorzolamide-timolol (COSOPT) 22.3-6.8 mg/mL ophthalmic solution INSTILL ONE DROP TO RIGHT EYE TWICE A DAY 0 05/12/2021 Active Comment on above: INSTILL ONE DROP TO RIGHT EYE TWICE A DAY latanoprost 0.05 mg/ml ophthalmic solution (12 sources) Prostaglandin Analog Start: 05-12-2021 take 1 drop(s) into the eye(s) once daily in the evening latanoprost (XALATAN) 0.005 % ophthalmic solution INSTILL 1 DROP RIGHT EYE EVERY EVENING 0 05/12/2021 Active Comment on above: INSTILL 1 DROP RIGHT EYE EVERY EVENING Loratadine (12 sources) loratadine (CLARITIN ORAL) Take by mouth. 0 Active Comment on above: Take by mouth. triamcinolone acetonide 0.001 mg/mg topical ointment (1 source) Corticosteroid End: 06-14-2021 triamcinolone acetonide (KENALOG) 0.1 % ointment Apply to affected area twice daily. 0 06/14/2021 Discontinued Comment on above: Apply to affected ar ea twice daily. Problems Active Problems Problem Classification Problem Date Documented Da te Episodic/Chronic Abdominal pain (16 sources) Pain in pelvis; Translations: [Pelvic and perineal pain] Onset: 3 Episodic Anxiety disorders (16 sources) Generalized anxiety disorder; Translations: [Generalized anxiety disorder] Chronic Cardiac dysrhythmias (20 sources) Palpitations; Translations: [Palpitations] Onset: 6 05-25-2015 Episodic Deficiency and other anemia (18 sources) Iron deficiency anemia due to blood loss; Translations: [Iron deficiency anemia secondary to blood loss (chronic)] Onset: 2 Chronic Deficiency and other anemia (1 source) Iron deficiency anemia secondary to blood loss (chronic); Translations: [Iron deficiency anemia due to chronic blood loss] Onset: 2 Chronic Deficiency and other anemia (15 sources) Anemia due to blood loss; Translations: [Iron deficiency anemia secondary to blood loss (chronic)] Chronic Deficiency and other anemia (11 sources) Anemia of chronic disease; Translations: [Anemia in other chronic diseases classified elsewhere] Chronic Deficiency and other anemia (1 source) Anemia in other chronic diseases classified elsewhere Chronic Deficiency and other anemia (15 sources) Iron deficiency anemia; Translations: [Iron deficiency anemia, unspecified] Episodic Deficiency and other anemia (14 sources) Iron deficiency anemia secondary to inadequate dietary iron intake; Translations: [Other iron deficiency anemias] Episodic Deficiency and other anemia (7 sources) Other iron deficiency anemias; Translations: [OTHER IRON DEFICIENCY ANEMIAS] Onset: 2 Episodic E Codes: Fall (1 source) Unspecified fall, initial encounter Episodic Esophageal disorders (17 sources) Gastroesophageal reflux disease; Translations: [Gastro-esophageal reflux disease without esophagitis] Chronic Essential hypertension (20 sources) Hypertensive disorder; Translations: [Essential (primary) hypertension] Onset: 5 05-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 Headache; including migraine (14 sources) Frontal headache ; Translations: [Frontal headache] Episodic Malaise and fatigue (1 source) Other fatigue Episodic Nonspecific chest pain (14 sources) Precordial pain; Translations: [Precordial pain] Onset: 6 06-10-2015 Episodic Nutritional deficiencies (20 sources) Vitamin D deficiency; Translations: [Vitamin D deficiency, unspecified] Onset: 2 Chronic Occlusion or stenosis of precerebral arteries (15 sources) Left carotid artery occlusion; Translations: [Occlusion and stenosis of left carotid artery] Chronic Osteoarthritis (1 source) Bilateral primary osteoarthritis of hip; Translations: [BILATERAL PRIM OSTEOARTHRITIS HIP] Onset: 3 Chronic Osteoporosis (5 sources) 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 current pathological fracture; Translations: [AGE-REL OSTEOPOR W/O CURR PATH FX] Onset: 3 Chronic Other acquired deformities (14 sources) Kyphoscoliosis deformity of spine; Translations: [Scoliosis, unspecified] Chronic Other acquired deformities (15 sources) Other secondary scoliosis, site unspecified; Translations: [Other secondary scoliosis, site unspecified] Chronic Other acquired deformities (3 sources) Scoliosis, unspecified Chronic Other connective tissue disease (1 source) Pain in left hand Episodic Other fractures (2 sources) Fracture of one rib, right side, subsequent encounter for fracture with routine healing Episodic Other gastrointestinal disorders (15 sources) Diarrhea; Translations: [Diarrhea, unspecified] Episodic Other nervous system disorders (14 sources) Chronic pain; Translations: [Other chronic pain] Chronic Other nervous system disorders (1 source) Other chronic pain Chronic Other nervous system disorders (11 sources) Carpal tunnel syndrome; Translations: [Carpal tunnel syndrome, bilateral upper limbs] Chronic Other nervous system disorders (1 source) Carpal tunnel syndrome, bilateral upper limbs Chronic Other nervous system disorders (11 sources) Paresthesia; Translations: [Paresthesia of skin] Episodic Other nervous system disorders (11 sources) Abnormal sensation; Translations: [Other disturbances of skin sensation] Episodic Other nervous system disorders (1 source) Paresthesia of skin Episodic Other screening for suspected conditions (not mental disorders or infectious disease) (6 sources) Encounter for screening mammogram for malignant neoplasm of breast; Translations: [ENC SCR MAMMO MALIG NEOPLASM BREAST] Onset: 2 Episodic Other upper respiratory disease (15 sources) Vasomotor rhinitis; 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 Pathological fracture (3 sources) Age-related osteoporosis with current pathological fracture, unspecified site, subsequent encounter for fracture with routine healing Episodic Spondylosis; intervertebral disc disorders; other back problems (20 sources) Spondylosis; Translations: [Spondylosis, unspecified] Onset: 3 Chronic Spondylosis; intervertebral disc disorders; other back problems (20 sources) Chronic low back pain; Translations: [Low back pain, unspecified] Episodic Systemic lupus erythematosus and connective tissue disorders (12 sources) Takayasu's disease; 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-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 Unclassified (3 sources) LOW BACK PAIN, UNSPECIFIED; Translations: [LOW BACK PAIN, UNSPECIFIED] Onset: 3 Past or Other Problems Problem Classification Problem Date Documented Da te Episodic/Chronic Deficiency and other anemia (1 source) Iron deficiency anemia, unspecified; Translations: [IRON DEFICIENCY ANEMIA UNSPECIFIED] Onset: 09-08-2021 Episodic Other aftercare (1 source) Other penitentiary (current) drug therapy; Translations: [OTH CHOCOLATIER CURRENT DRUG THERAPY] Onset: 09-21-2021 Episodic Other gastrointestinal disorders (4 sources) Diarrhea, unspecified; Translations: [DIARRHEA UNSPECIFIED] Onset: 09-02-2021 Episodic Residual codes; unclassified (1 source) Family history of malignant neoplasm of breast; Translations: [FAMILY HX MALIG NEOPLASM OF BREAST] Onset: 08-10-2021 Episodic Residual codes; unclassified (1 source) Family history of malignant neoplasm of digestive organs; Translations: [FAM HX MALIG NEOPLASM DIGESTIV ORGN] Onset: 08-10-2021 Episodic Unclassified (1 source) Low back pain, unspecified M54.50 Unclassified (1 source) LOW BACK PAIN, UNSPECIFIED; Translations: [LOW BACK PAIN, UNSPECIFIED] Onset: 05-16-2022 Results Test Name Value Interpretation Reference Range Facility Basic Metabolic Panelon - Anion gap [Moles/Vol] 10.9 mmol/L [facility] Other Calcium [Mass/Vol] 8.7249087 mg/dL Normal 8.5-10 .1 mg/dL [facility] Other Chloride [Moles/Vol] 102 mmol/L Normal 98-107 mmol/L [facility] Other CO2 [Moles/Vol] 28.58063463 mmol/L Normal 21.0-3 2.0 mmol/L [facility] Other Creatinine [Mass/Vol] 1.71606817 mg/dL High 0.55-1.02 mg/dL [facility] Other Glucose [Mass/Vol] 101 mg/dL Normal 74-106 mg/dL [facility] Other Potassium [Moles/Vol] 3.07524431 mmol/L Normal 3.5-5.1 mmol/L [facility] Other Sodium [Moles/Vol] 138 mmol/L Normal 136-145 mmol/L [facility] Other Urea nitrogen [Mass/Vol] 16.2020975 mg/dL Normal 7.0-18.0 mg/dL [facility] Other Urea nitrogen/Creatinine [Mass ratio] 14.7 mg/mg [facility] Other Basic Metabolic Panel see note [facility] Other Basic Metabolic Panel 47 Low >=60 [facility] Other Basic Metabolic Panel 57 Low >=60 [facility] Other FERRITINon 02-20-2023 Ferritin [Mass/Vol] 31.8479336 ng/mL Normal 8.0- 252.0 ng/mL [facility] Other XR HIPS VALERIY 5V W PELVISon XR HIPS VALERIY 5V W PELVIS EXAM: XR HIPS VALERIY 5V W PELVIS, XR LSPINE W_OBLS AND FLEX_EXT HISTORY: Low back pain. COMPARISON: None. TECHNIQUE/FINDINGS: PELVIS WITH BILATERAL HIPS: There is osteopenia. Severe bilateral joint space narrowing with marginal spurring and subchondral cystic changes are seen at the hip joints consistent with severe osteoarthritis. 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 The sacroiliac joints show mild bilateral osteoarthritis. LUMBAR SPINE: AP, oblique, and lateral views of the lumbar spine were obtained with flexion and extension images. There is levoconvex scoliosis of the lumbar spine measuring 25 degrees from superior endplate of L1 to inferior endplate of L5. There is diffuse loss of disc height with diffuse endplate spurring throughout the lumbar spine. There is grade 1 anterolisthesis of L4 over L5 seen in flexion and extension images. There is grade 1 retrolisthesis of L1 over L2, L2 over L3, and L3 over L4 seen in flexion and extension images. IMPRESSION: LUMBAR SPINE: 1. Diffuse disc degenerative changes with endplate spurring and diffuse facet joint osteoarthritis. 2. Levoconvex scoliosis of the lumbar spine. 3. There is grade 1 anterolisthesis of L4 over L5 seen in flexion and extension images. There is grade 1 retrolisthesis of L1 over L2, L2 over L3, and L3 over L4 seen in flexion and extension images. PELVIS: 1. Severe bilateral hip joint osteoarthritis. 2. Moderate bilateral sacroiliac joint osteoarthritis. Electronically authenticated by: DIA DE DIOS Date: 2022-05-16 11:52 Normal [facility] CBC AUTO DIFFon 03-06-2022 BASO # 0.0 103/ul Normal 0.0-0.1 [facility] Comment on above: Performed By: #### C BC ####[facility] [address] [place] [id number]. Devorah James Basophils/100 WBC (Bld) 0.7 % Normal 0.2-2.0 [facility] Comment on above: Performed By: #### C BC ####[facility] [address] [place] [address]Dr. Elsylan James EO # 0.2 103/ul Normal 0.0-0.7 [facility] Comment on above: Performed By: #### C BC ####[facility] [address] [place] [address]Dr. Devorah James Eosinophils/100 WBC (Bld) 3.7 % Normal 0.9-7.0 [facility] Comment on above: Performed By: #### C BC ####[facility] [address] [place] [id number]. Devorah James Erythrocyte distribution width (RBC) [Ratio] 12.8 % Normal 11.0-15.0 [facility] Comment on above: Performed By: #### C BC ####[facility] [address] [place] [address]Dr. Devorah James Hematocrit (Bld) [Volume fraction] 41.5 % Normal 36.0-48.0 [facility] Comment on above: Performed By: #### C BC ####[facility] [address] [place], [place] [address]Dr. Devorah James Hemoglobin (Bld) [Mass/Vol] 13.3 g/dL Normal 12.0-16.0 [facility] Comment on above: Performed By: #### C BC ####[facility] [address] [place], [place] [address]Dr. Devorah James IG # 0.01 10e3/ul Normal 0.00-0.03 [facility] Comment on above: Performed By: #### C BC ####[facility] [address] [place], [place] [address]Dr. Devorah James IG % 0.2 % Normal 0.0-0.5 [facility] Comment on above: Performed By: #### C BC ####[facility] [address] [place], [place] [address]Dr. Devorah James LYMPH # 1.1 103/ul Critically low 1.2-3.8 [facility] Comment on above: Performed By: #### C BC ####[facility] [address] [place], [place] [address]Dr. Devorah James Lymphocytes/100 WBC (Bld) 18.2 % Critically low 20.5-60.0 [facility] Comment on above: Performed By: #### C BC ####[facility] [address] [place], [place] [address]Dr. Devorah James MANUAL DIFF REQ NO Normal [facility] Comment on above: Performed By: #### C BC ####[facility] [address] [place] [id number]. Devorah James MCH (RBC) [Entitic mass] 29.1 pg Normal 26.7-34.0 [facility] Comment on above: Performed By: #### C BC ####[facility] [address] [place] [address]Dr. Devorah James MCHC (RBC) [Mass/Vol] 32.0 g/dL Normal 29.9-35.2 [facility] Comment on above: Performed By: #### C BC ####[facility] [address] [place], [place] [address]Dr. Devorah James MCV (RBC) [Entitic vol] 90.8 fL Normal 81.0-99.0 [facility] Comment on above: Performed By: #### C BC ####[facility] [address] [place], [place] [address]Dr. Devorah Jacob MONO # 0.6 103/ul Normal 0.3-0.8 [facility] Comment on above: Performed By: #### C BC ####[facility] [address] [place], [place] [address]Dr. Devorah Jacob Monocytes/100 WBC (Bld) 10.0 % Normal 1.7-12.0 [facility] Comment on above: Performed By: #### C BC ####[facility] [address] [place], [place] [address]Dr. Devorah James NEUT # 4.0 103/ul Normal 1.4-6.5 [facility] Comment on above: Performed By: #### C BC ####[facility] [address] [place], [place] [address]Dr. Devorah Jacob Neutrophils/100 WBC (Bld) 67.2 % Normal 43.0-75.0 [facility] Comment on above: Performed By: #### C BC ####[facility] [address] [place], [place] [address]Dr. Devorah Jacob Platelet mean volume (Bld) [Entitic vol] 10.1 fL Normal 9.5-13.5 [facility] Comment on above: Performed By: #### C BC ####[facility] [address] [place], [place] [address]Ca. Elsycindy Jacob PLT 183 103/ul Normal 150-450 [facility] Comment on above: Performed By: #### C BC ####[facility] [address] [place] [id number]. Elsycindy Jacob RBC 4.57 106/ul Normal 4.20-5.40 [facility] Comment on above: Performed By: #### C BC ####[facility] [address] [place] [address]Dr. Devorah James WBC 6.0 103/ul Normal 4.0-11.0 [facility] Comment on above: Performed By: #### C BC ####[facility] [address] [place] [address]Dr. Devorah James FERRITINon 03-06-2022 Ferritin [Mass/Vol] 44.0 ng/mL Normal 8.0-252.0 [facility] Comment on above: Performed By: #### F ERR, VITAD #### [facility] [address] [place] [address] [address] Devorah James PROF CHEM 8 (BAS METB)on Anion gap [Moles/Vol] 11.8 mmol/L Normal [facility] Comment on above: Performed By: #### B MP ####[facility] [address] [place] [id number]. Devorah James Calcium [Mass/Vol] 8.8 mg/dL Normal 8.5-10.1 [facility] Comment on above: Performed By: #### B MP ####[facility] [address] [place] [address]Dr. Devorah James Chloride [Moles/Vol] 102 mmol/L Normal 98-107 [facility] Comment on above: Performed By: #### B MP ####[facility] [address] [place] [address]Dr. Devorah James CO2 [Moles/Vol] 27.7 mmol/L Normal 21.0-32.0 [facility] Comment on above: Performed By: #### B MP ####[facility] [address] [place] [address]Dr. Devorah James Creatinine [Mass/Vol] 0.84 mg/dL Normal 0.55-1.02 [facility] Comment on above: Performed By: #### B MP ####[facility] [address] [place] [address]Dr. Devorah James EGFR-AF CENTRAL AFRICAN >60 Normal >=60 [facility] Comment on above: Performed By: #### B MP ####[facility] [address] [place] [address]Dr. Devorah James EGFR-NON AF CENTRAL AFRICAN >60 Normal >=60 [facility] Comment on above: Performed By: #### B MP ####[facility] [address] [place] [address]Dr. Devorah James Glucose [Mass/Vol] 112 mg/dL Critically high 74-106 [facility] Comment on above: Performed By: #### B MP ####[facility] [address] [place] [id number]. Devorah James Potassium [Moles/Vol] 4.5 mmol/L Normal 3.5-5.1 [facility] Comment on above: Performed By: #### B MP ####[facility] [address] [place] [id number]. Elsycindy Jacob Sodium [Moles/Vol] 137 mmol/L Normal 136-145 [facility] Comment on above: Performed By: #### B MP ####[facility] [address] [place] [id number]. Elsycindy James Urea nitrogen [Mass/Vol] 15.0 mg/dL Normal 7.0-18.0 [facility] Comment on above: Performed By: #### B MP ####[facility] [address] [place] [address]Dr. Devorah James Urea nitrogen/Creatinine [Mass ratio] 17.9 mg/mg Normal [facility] Comment on above: Performed By: #### B MP ####[facility] [address] [place], [place] [address]UtDr. Devorah James VITAMIN D 25 OHon 03-06-2022 VIT D 25-OH 47.3 ng/mL Normal [facility] Comment on above: Performed By: #### F ERR, VITAD #### [facility] [address] [place], [place] [address] Dr. Devorah James VIT D RANGES SEE BELOW Normal [facility] Comment on above: Result Comment: <20 ng/mL Vit D deficient 20 - <30 ng/mL Vit D insufficient 30 - 100 ng/mL Vit D sufficient >100 ng/mL Potential Toxicity Performed By: #### F ERR, VITAD #### [facility] [address] [place] [address] [address] Devorah Lua 11-17-2021 CNPN Telephone (HEMTSA) NINA GEORGE ([id number]) 1935 F Date Time Provider Department 11/17/21 JEWEL RICHARDSON During your visit today, we recorded the following information about you: Jewel Richardson RN 11/17/2021 9:22 AM Signed ----- Message from Fiorella Gonzalez PA-C sent at 11/17/2021 8:24 AM EDT ----- Please forward all of yesterday's labs to Dr. Zimmerman. Jewel Richardson RN 11/17/2021 9:23 AM Signed Additional labs forwarded to Dr Zimmerman. All have now been sent from 11/16. Jewel Richardson RN Allergies As of Date: 11/17/2021 Noted Allergy Reaction EYE DROPS RELIEF 11/25/2013 16 - Unknown Comments: Glaucoma eye drops PREDNISONE 11/25/2013 14 - Other: See Comments Comments: Palpitations, sob Date Reviewed: 11/16/2021 Reviewed by: Fiorella Gonzalez PA-C - Fully Assessed Reason for Visit: Results [95] Prescriptions as of 11/17/2021 - aspirin 81 mg chewable tablet Take 81 mg by mouth once daily. - latanoprost (XALATAN) 0.005 % ophthalmic solution INSTILL 1 DROP RIGHT EYE EVERY EVENING - dorzolamide-timolol (COSOPT) 22.3-6.8 mg/mL ophthalmic solution INSTILL ONE DROP TO RIGHT EYE TWICE A DAY - loratadine (CLARITIN ORAL) Take by mouth. - lisinopril (ZESTRIL, PRINIVIL) 5 mg tablet Take 2.5 mg in the morning, take BP at 4p.m., if elevated over 145 mm/Hg systolic, take another 2.5 mg. - ACETAMINOPHEN (TYLENOL 8 HOUR ORAL) Take by mouth as needed. - aspirin, enteric coated (ASPIRIN, ENTERIC COATED) 81 mg EC tablet Take 81 mg by mouth once daily. - ALPRAZolam (XANAX) 0.25 mg tablet Take 0.25 mg by mouth three times daily as needed. 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 HTN (hypertension) [I10] 05/29/2014 Palpitations [R00.2] 05/25/2015 Precordial pain [R07.2] 06/10/2015 Iron deficiency anemia due to chronic blood los*06/14/2021 Encounter Status:Closed by JEWEL RICHARDSON on 11/17/21 Normal [facility] CBC W Auto Differential pane l (Bld)on 11-16-2021 Basophils (Bld) [#/Vol] 0.03 10*3/uL Normal <0.11 [facility] Comment on above: Order Comment: Speci men Type: BLOOD SPECIMENOrdering Facility: [facility] Address: [address] [place] [address] Performed By: #### 5 7021-8 ####[facility] LABCLIA [id number] [place] [address] Basophils/100 WBC (Bld) 0.6 % Normal [facility] Comment on above: Order Comment: Speci men Type: BLOOD SPECIMENOrdering Facility: [facility] Address: [address] [place] [address] Performed By: #### 5 7021-8 ####[facility] LABCLIA [id number] [place] [address] Differential cell count method Nom (Bld) Auto Normal [facility] Comment on above: Order Comment: Speci men Type: BLOOD SPECIMENOrdering Facility: [facility] Address: [address] [place] [address] Performed By: #### 5 7021-8 ####[facility] LABCLIA [id number] [place] [address] Eosinophils (Bld) [#/Vol] 0.10 10*3/uL Normal <0.46 [facility] Comment on above: Order Comment: Speci men Type: BLOOD SPECIMENOrdering Facility: [facility] Address: [address] [place] [address] Performed By: #### 5 7021-8 ####[facility] LABIA [id number] [place] [address] Eosinophils/100 WBC (Bld) 2.1 % Normal [facility] Comment on above: Order Comment: Speci men Type: BLOOD SPECIMENOrdering Facility: [facility] Address: [address] [place] [address] Performed By: #### 5 7021-8 ####[facility] LABCLIA [id number] [place] [address] Erythrocyte distribution width (RBC) [Ratio] 17.6 % High 11.5-15.0 [facility] Comment on above: Order Comment: Speci men Type: BLOOD SPECIMENOrdering Facility: [facility] Address: [address] [place] [address] Performed By: #### 5 7021-8 ####[facility] LABCLIA [id number] [place] [address] Hematocrit (Bld) [Volume fraction] 46.2 % High 36.0-46.0 [facility] Comment on above: Order Comment: Speci men Type: BLOOD SPECIMENOrdering Facility: [facility] Address: [address] [place] [address] Performed By: #### 5 7021-8 ####[facility] LABCLIA [id number] [place] [address] Hemoglobin (Bld) [Mass/Vol] 14.5 g/dL Normal 11.5-15.5 [facility] Comment on above: Order Comment: Speci men Type: BLOOD SPECIMENOrdering Facility: [facility] Address: [address] [place] [address] Performed By: #### 5 7021-8 ####[facility] LABCLIA [id number] [place] [address] IMMATURE GRAN % 0.2 % Normal [facility] Comment on above: Order Comment: Speci men Type: BLOOD SPECIMENOrdering Facility: [facility] Address: [address] [place] [address] Performed By: #### 5 7021-8 ####[facility] LABCLIA [id number] [place] [address] IMMATURE GRAN ABS <0.03 Normal <0.10 [facility] Comment on above: Order Comment: Speci men Type: BLOOD SPECIMENOrdering Facility: [facility] Address: [address] [place] [address] Performed By: #### 5 7021-8 ####[facility] LABIA [id number] [place] [address] Lymphocytes (Bld) [#/Vol] 1.01 10*3/uL Normal 1.00-4.00 [facility] Comment on above: Order Comment: Speci men Type: BLOOD SPECIMENOrdering Facility: [facility] Address: [address] [place] [address] Performed By: #### 5 7021-8 ####[facility] LABCLIA [id number] [place] [address] Lymphocytes/100 WBC (Bld) 21.7 % Normal [facility] Comment on above: Order Comment: Speci men Type: BLOOD SPECIMENOrdering Facility: [facility] Address: [address] [place] [address] Performed By: #### 5 7021-8 ####[facility] LABCLIA [id number] [place] [address] MCH (RBC) [Entitic mass] 27.4 pg Normal 26.0-34.0 [facility] Comment on above: Order Comment: Speci men Type: BLOOD SPECIMENOrdering Facility: [facility] Address: [address] [place] [address] Performed By: #### 5 7021-8 ####[facility] LABIA [id number] [place] [address] MCHC (RBC) [Mass/Vol] 31.4 g/dL Normal 30.5-36.0 [facility] Comment on above: Order Comment: Speci men Type: BLOOD SPECIMENOrdering Facility: [facility] Address: [address] [place] [address] Performed By: #### 5 7021-8 ####[facility] LABCLIA [id number] [place] [address] MCV (RBC) [Entitic vol] 87.2 fL Normal 80.0-100.0 [facility] Comment on above: Order Comment: Speci men Type: BLOOD SPECIMENOrdering Facility: [facility] Address: [address] [place] [address] Performed By: #### 5 7021-8 ####[facility] LABIA [id number] [place] [address] Monocytes (Bld) [#/Vol] 0.43 10*3/uL Normal <0.87 [facility] Comment on above: Order Comment: Speci men Type: BLOOD SPECIMENOrdering Facility: [facility] Address: [address] [place] [address] Performed By: #### 5 7021-8 ####[facility] LABCLIA [id number] [place] [address] Monocytes/100 WBC (Bld) 9.2 % Normal [facility] Comment on above: Order Comment: Speci men Type: BLOOD SPECIMENOrdering Facility: [facility] Address: [address] [place] [address] Performed By: #### 5 7021-8 ####[facility] LABCLIA [id number] [place] [address] Neutrophils (Bld) [#/Vol] 3.08 10*3/uL Normal 1.45-7.50 [facility] Comment on above: Order Comment: Speci men Type: BLOOD SPECIMENOrdering Facility: [facility] Address: [address] [place] [address] Performed By: #### 5 7021-8 ####[facility] LABCLIA [id number] [place] [address] Neutrophils/100 WBC (Bld) 66.2 % Normal [facility] Comment on above: Order Comment: Speci men Type: BLOOD SPECIMENOrdering Facility: [facility] Address: [address] [place], [place] [address] Performed By: #### 5 7021-8 ####[facility] LABCLIA [id number] [place] [address] Nucleated RBC (Bld) [#/Vol] 10*3/uL Normal <0.01 [facility] Comment on above: Order Comment: Speci men Type: BLOOD SPECIMENOrdering Facility: [facility] Address: [address] [place], [place] [address] Performed By: #### 5 7021-8 ####[facility] LABCLIA [id number] [place] [address] Nucleated RBC/100 WBC (Bld) [Ratio] 0.0 /100 WBC Normal [facility] Comment on above: Order Comment: Speci men Type: BLOOD SPECIMENOrdering Facility: [facility] Address: [address] [place] [address] Performed By: #### 5 7021-8 ####[facility] LABCLIA [id number] [place] [address] Platelet mean volume (Bld) [Entitic vol] 9.5 fL Normal 9.0-12.7 [facility] Comment on above: Order Comment: Speci men Type: BLOOD SPECIMENOrdering Facility: [facility] Address: [address] [place] [address] Performed By: #### 5 7021-8 ####[facility] LABCLIA [id number] [place] [address] Platelets (Bld) [#/Vol] 190 10*3/uL Normal 150-400 [facility] Comment on above: Order Comment: Speci men Type: BLOOD SPECIMENOrdering Facility: [facility] Address: [address] [place] [address] Performed By: #### 5 7021-8 ####[facility] LABCLIA [id number] [place] [address] RBC (Bld) [#/Vol] 5.30 10*6/uL High 3.90-5.20 [facility] Comment on above: Order Comment: Speci men Type: BLOOD SPECIMENOrdering Facility: [facility] Address: [address] [place], [place] [address] Performed By: #### 5 7021-8 ####[facility] LABCLIA [id number] [place] [address] WBC (Bld) [#/Vol] 4.66 10*3/uL Normal 3.70-11.00 [facility] Comment on above: Order Comment: Speci men Type: BLOOD SPECIMENOrdering Facility: [facility] Address: [address] [place] [address] Performed By: #### 5 7021-8 ####[facility] LABCLIA [id number] [place] [address] Abs Immature Gran <0.10 k/uL [facility] Basophils (Bld) [#/Vol] 0.03 10*3/uL <0.11 k/uL [facility] Basophils/100 WBC (Bld) 0.6 % [facility] Differential cell count method Nom (Bld) Auto [facility] Eosinophils (Bld) [#/Vol] 0.10 10*3/uL <0.46 k/uL [facility] Eosinophils/100 WBC (Bld) 2.1 % [facility] Erythrocyte distribution width (RBC) [Ratio] 17.6 % High 11.5 - 15.0 % [facility] Hematocrit (Bld) [Volume fraction] 46.2 % High 36.0 - 46.0 % [facility] ic Hemoglobin (Bld) [Mass/Vol] 14.5 g/dL 11.5 - 15.5 g/dL [facility] Immature Gran % 0.2 % [facility] Lymphocytes (Bld) [#/Vol] 1.01 10*3/uL 1.00 - 4.00 k/uL [facility] Lymphocytes/100 WBC (Bld) 21.7 % [facility] MCH (RBC) [Entitic mass] 27.4 pg 26.0 - 34.0 pg [facility] MCHC (RBC) [Mass/Vol] 31.4 g/dL 30.5 - 36.0 g/dL [facility] MCV (RBC) [Entitic vol] 87.2 fL 80.0 - 100.0 fL [facility] Monocytes (Bld) [#/Vol] 0.43 10*3/uL <0.87 k/uL [facility] Monocytes/100 WBC (Bld) 9.2 % [facility] Neutrophils (Bld) [#/Vol] 3.08 10*3/uL 1.45 - 7.50 k/uL [facility] Neutrophils/100 WBC (Bld) 66.2 % [facility] Nucleated RBC (Bld) [#/Vol] <0.01 k/uL [facility] Nucleated RBC/100 WBC (Bld) [Ratio] 0.0 /100 WBC [facility] Platelet mean volume (Bld) [Entitic vol] 9.5 fL 9.0 - 12.7 fL [facility] Platelets (Bld) [#/Vol] 190 10*3/uL 150 - 400 k/uL [facility] RBC (Bld) [#/Vol] 5.30 10*6/uL High 3.90 - 5.2 0 m/uL [facility] WBC (Bld) [#/Vol] 4.66 10*3/uL 3.70 - 11. 00 k/uL [facility] CNOVSPon 11-16-2021 CNOVSP Visit (SP) Office (HEMASA) NINA GEORGE ([id number]) 1935 F Date Time Provider Department 11/16/21 11:00 AM FIORELLA GONZALEZ During your visit today, we recorded the following information about you: Temperature Pulse Respiration Blood pressure 97.8 degrees 74/minute 16/minute 143/86 Weight Height 49 kg 1.511 m Fiorella Gonzalez PA-C 11/16/2021 11:43 AM Signed HEMATOLOGY FOLLOW UP (Elements copied from Dr. Hernandez's note dated September 26, 2021, have been reviewed and updated where appropriate, and all reflect current assessment and medical decision making during today's encounter, November 16, 2021) November 16, 2021 PCP and other physicians involved in patient's care: Erik Zimmerman (PCP), Ta Espana (GI) DIAGNOSIS: Iron deficiency anemia HEMATOLOGICAL HISTORY: Patient mentions being iron deficient in 2019 or 2019 for which she took oral iron for a few months. EGD and colonoscopy at that time (Dr. Hernandez) did not reveal any abnormalities. I do not have these results. Patient was referred to me in June 2021 for iron deficiency anemia. This was based on microcytic anemia initially noted in February 2021. Hemoglobin was 10.4 g/dL. MCV was 78 fL and ferritin was 14. This was new since March 2020 when the CBC was normal. Oral iron was complicated by significant constipation June 2021, iron sucrose (total 900 mg) INTERVAL HISTORY: Nina returns for follow units. She last received IV iron in August 2021.She continues to feel well. Denies any bleeding or fatigue or shortness of breath. ROS is negative except that mentioned in HPI PAST MEDICAL SURGICAL FAMILY AND SOCIAL HISTORY: She has a history of -gastroesophageal reflux disease -iron deficiency anemia -hypertension -osteoporosis -left carotid stenosis No pertinent surgical or family history. No history of smoking. MEDICATIONS AND ALLERGIES: Reviewed PHYSICAL EXAM BP 143/86 Pulse 74 Temp 36.6 ?C (97.8 ?F) (Temporal) Resp 16 Ht 151.1 cm (4' 11.49 ) Wt 49 kg (108 lb) SpO2 99% BMI 21.46 kg/m? PHYSICAL EXAMINATION General: Alert and oriented, no distress, pleasant and cooperative. Heart: Regular, normal S1 and S2, no murmurs, rubs, or gallops Lungs: Clear to auscultation bilaterally Abdomen: Benign Extremities: Feet/ankles without edema, posterior tibial pulses full and symmetrical LABORATORY, IMAGING AND PATHOLOGY 04-03-20 hemoglobin 13.7, MCV 88, ferritin 23 02-21-21 hemoglobin 10.4, MCV 78 02-28-21 ferritin 14 03-06-21 hemoglobin 9.7, MCV May oral iron for one month 06-14-21 hemoglobin 8.9, MCV 69, ferritin 16 June 2021 one dose of iron sucrose 07-12-2021 hemoglobin 9.6, MCV 73, ferritin 86 09-26-21 hemoglobin 13.4, MCV 81, ferritin in process 10/25/21 ferritin 79.0, TIBD 288 11/16/21 hgb 14.5, MCV 87.2 ASSESSMENT AND RECOMMENDATIONS 85 female with iron deficiency anemia Oral iron was associated with significant GI upset. She received a total of 900 mg iron sucrose from June-July 2021. This resulted in improvement of symptoms and normalization of hemoglobin. She has seen Dr. Espana who did not feel the need to do scopes. Her repeat iron levels and CBC remain adequate. She would like to follow up with her PCP which is reasonable. If IV iron is indicated in the future, we would be happy to see her again. Fiorella Gonzalez PA-C CC: Erik Zimmerman Referring Provider: BINH HERNANDEZ [[id number]] Allergies As of Date: 11/16/2021 Noted Allergy Reaction EYE DROPS RELIEF 11/25/2013 16 - Unknown Comments: Glaucoma eye drops PREDNISONE 11/25/2013 14 - Other: See Comments Comments: Palpitations, sob Date Reviewed: 11/16/2021 Reviewed by: Fiorella Gonzalez PA-C - Fully Assessed Reason for Visit: Anemia [6] Primary Visit Diagnosis:Iron deficiency anemia due to chronic blood loss [D50.0] Order(s):COMP METABOLIC PANEL [SQCMP] Order #: [id number] FUTURE IRON + TIBC [SQIRON] Order #: [id number] FUTURE CBC + DIFF [SQCBCDIF] Order #: [id number] FUTURE FERRITIN BLD [SQFERR] Order #: [id number] FUTURE Disposition: Return today (on 11/16/2021), or if symptoms worsen or fail to improve. Follow-up and Disposition History for Encounter Date Provider Department Center 11/16/2021 [id number] GONZALEZ [facility] Prescriptions as of 11/16/2021 - aspirin 81 mg chewable tablet Take 81 mg by mouth once daily. - latanoprost (XALATAN) 0.005 % ophthalmic solution INSTILL 1 DROP RIGHT EYE EVERY EVENING - dorzolamide-timolol (COSOPT) 22.3-6.8 mg/mL ophthalmic solution INSTILL ONE DROP TO RIGHT EYE TWICE A DAY - loratadine (CLARITIN ORAL) Take by mouth. - lisinopril (ZESTRIL, PRINIVIL) 5 mg tablet Take 2.5 mg in the morning, take BP at 4p.m., if elevated over 145 mm/Hg systolic, take another 2.5 mg. - ACETAMINOPHEN (TYLENOL 8 HOUR ORAL) Take by mouth as neede (more content not included)... Normal [facility] NINA GEORGE ([id number]) 1935 F Date Time Provider Department 11/16/21 FIORELLA GONZALEZ During your visit today, we recorded the following information about you: Fiorella Gonzalez PA-C 11/16/2021 11:27 AM Signed Please send a copy of today's labs to Dr. Zimmerman's office. DEE Holbrook RN 11/16/2021 1:19 PM Signed ----- Message from Fiorella Gonzalez PA-C sent at 11/16/2021 12:07 PM EDT ----- Please call and advise that her blood sugar in our office was low. She should eat a piece of candy or drink juice. If she feels dizzy, nauseated, weak or shaky, she will need to go to ER. DEE Holbrook RN 11/16/2021 1:28 PM Signed Pt notified of blood sugar level and denies any complaints at this time. She is strongly encouraged to call for a follow up with Dr Zimmerman for further evaluation. She is also agrees to call 911 or go to the nearest ED if continued symptoms of dizziness, cold/clammy sweats, etc. She has ate since labs this morning and agrees to POC as discussed. I have sent lab results to Dr. Florian Zimmerman that have resulted and will send the rest once results are rec'd. Jewel Richardson RN Allergies As of Date: 11/16/2021 Noted Allergy Reaction EYE DROPS RELIEF 11/25/2013 16 - Unknown Comments: Glaucoma eye drops PREDNISONE 11/25/2013 14 - Other: See Comments Comments: Palpitations, sob Date Reviewed: 11/16/2021 Reviewed by: Fiorella Gonzalez PA-C - Fully Assessed Reason for Visit: Results [95] Prescriptions as of 11/16/2021 - aspirin 81 mg chewable tablet Take 81 mg by mouth once daily. - latanoprost (XALATAN) 0.005 % ophthalmic solution INSTILL 1 DROP RIGHT EYE EVERY EVENING - dorzolamide-timolol (COSOPT) 22.3-6.8 mg/mL ophthalmic solution INSTILL ONE DROP TO RIGHT EYE TWICE A DAY - loratadine (CLARITIN ORAL) Take by mouth. - lisinopril (ZESTRIL, PRINIVIL) 5 mg tablet Take 2.5 mg in the morning, take BP at 4p.m., if elevated over 145 mm/Hg systolic, take another 2.5 mg. - ACETAMINOPHEN (TYLENOL 8 HOUR ORAL) Take by mouth as needed. - aspirin, enteric coated (ASPIRIN, ENTERIC COATED) 81 mg EC tablet Take 81 mg by mouth once daily. - ALPRAZolam (XANAX) 0.25 mg tablet Take 0.25 mg by mouth three times daily as needed. 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 HTN (hypertension) [I10] 05/29/2014 Palpitations [R00.2] 05/25/2015 Precordial pain [R07.2] 06/10/2015 Iron deficiency anemia due to chronic blood los*06/14/2021 Encounter Status:Closed by MANFRED KELLY on 11/16/21 Normal [facility] Comprehensive metabolic 2000 panelon 11-16-2021 Albumin [Mass/Vol] 4.4 g/dL Normal 3.9-4.9 [facility] Comment on above: Order Comment: Speci men Type: BLOOD SPECIMENOrdering Facility: [facility] Address: [address] [place] [address] Performed By: #### 2 4323-8 ####[facility] LABCLIA [id number] [place] [address] ALP [Catalytic activity/Vol] 45 U/L Normal 34-123 [facility] Comment on above: Order Comment: Speci men Type: BLOOD SPECIMENOrdering Facility: [facility] Address: [address] [address] Performed By: #### 2 4323-8 ####[facility] LABCLIA [id number] [place] [address] ALT [Catalytic activity/Vol] 11 U/L Normal 7-38 [facility] Comment on above: Order Comment: Speci men Type: BLOOD SPECIMENOrdering Facility: [facility] Address: [address] [place] [address] Performed By: #### 2 4323-8 ####[facility] LABCLIA [id number] [place] [address] Anion gap [Moles/Vol] 7 mmol/L Low 9-18 [facility] Comment on above: Order Comment: Speci men Type: BLOOD SPECIMENOrdering Facility: [facility] Address: [address] [place] [address] Performed By: #### 2 4323-8 ####[facility] LABCLIA [id number] [place] [address] AST [Catalytic activity/Vol] 22 U/L Normal 13-35 [facility] Comment on above: Order Comment: Speci men Type: BLOOD SPECIMENOrdering Facility: [facility] Address: [address] [place] [address] Performed By: #### 2 4323-8 ####[facility] LABCLIA [id number] [place] [address] Bilirubin [Mass/Vol] 0.4 mg/dL Normal 0.2-1.3 [facility] Comment on above: Order Comment: Speci men Type: BLOOD SPECIMENOrdering Facility: [facility] Address: [address] [place] [address] Performed By: #### 2 4323-8 ####[facility] LABCLIA [id number] [place] [address] Calcium [Mass/Vol] 9.7 mg/dL Normal 8.5-10.2 [facility] Comment on above: Order Comment: Speci men Type: BLOOD SPECIMENOrdering Facility: [facility] Address: [address] [place] [address] Performed By: #### 2 4323-8 ####[facility] LABCLIA [id number] [place] [address] Chloride [Moles/Vol] 102 mmol/L Normal 97-105 [facility] Comment on above: Order Comment: Speci men Type: BLOOD SPECIMENOrdering Facility: [facility] [facility] Address: [address] [place] [address] Performed By: #### 2 4323-8 ####[facility] LABCLIA [id number] [place] [address] CO2 [Moles/Vol] 29 mmol/L Normal 22-30 [facility] Comment on above: Order Comment: Speci men Type: BLOOD SPECIMENOrdering Facility: [facility] Address: [address] [place] [address] Performed By: #### 2 4323-8 ####[facility] LABCLIA [id number] [place] [address] Creatinine [Mass/Vol] 0.85 mg/dL Normal 0.58-0.96 [facility] Comment on above: Order Comment: Speci men Type: BLOOD SPECIMENOrdering Facility: [facility] Address: [address] [place] [address] Performed By: #### 2 4323-8 ####[facility] LABCLIA [id number] [place] [address] ESTIMATED GLOMERULAR FILTRATION RATE 66 mL/min/1.73m??? Normal >=60 [facility] Comment on above: Order Comment: Speci men Type: BLOOD SPECIMENOrdering Facility: [facility] Address: [address] [place] [address] Result Comment: Kala mated Glomerular Filtration Rate (eGFR) is calculated using the 2021 CKD-EPI creatinine equation. This equation utilizes serum creatinine, sex, and age as parameters. The creatinine assay has traceable calibration to isotope dilution-mass spectrometry. Refer to KDIGO guidelines for clinical interpretation. In patients with unstable renal function, e.g. those with acute kidney injury, the eGFR may not accurately reflect actual GFR. Performed By: #### 2 4323-8 ####[facility] LABCLIA [id number] [place] [address] Glucose [Mass/Vol] 60 mg/dL Low 74-99 [facility] Comment on above: Order Comment: Nesha parikh Type: BLOOD SPECIMENOrdering Facility: [facility] Address: [address] [place] [id number] Result Comment: The [place] Diabetes Association (ADA) provides guidance for cutoff values for fasting glucose and random glucose. The ADA defines fasting as no caloric intake for at least 8 hours. Fasting plasma glucose results between 100 to 125 mg/dL indicate increased risk for diabetes (prediabetes). Fasting plasma glucose results greater than or equal to 126 mg/dL meet the criteria for diagnosis of diabetes. In the absence of unequivocal hyperglycemia, results should be confirmed by repeat testing. In a patient with classic symptoms of hyperglycemia or hyperglycemic crisis, random plasma glucose results greater than or equal to 200 mg/dL meet the criteria for diagnosis of diabetes. Reference: Standards of Medical Care in Diabetes 2016, [place] Diabetes Association. Diabetes Care. 2016.39(Suppl 1). Performed By: #### 2 4323-8 ####[facility] LABCLIA [id number] [place] [address] Potassium [Moles/Vol] 5.1 mmol/L Normal 3.7-5.1 [facility] Comment on above: Order Comment: Nesha parikh Type: BLOOD SPECIMENOrdering Facility: [facility] Address: [address] [place] [address] Performed By: #### 2 4323-8 ####[facility] LABCLIA [id number] [place] [address] Protein [Mass/Vol] 6.8 g/dL Normal 6.3-8.0 [facility] Comment on above: Order Comment: Speci men Type: BLOOD SPECIMENOrdering Facility: [facility] Address: [address] [place] [address] Performed By: #### 2 4323-8 ####[facility] LABCLIA [id number] [place] [address] Sodium [Moles/Vol] 138 mmol/L Normal 136-144 [facility] Comment on above: Order Comment: Speci men Type: BLOOD SPECIMENOrdering Facility: [facility] Address: [address] [place] [address] Performed By: #### 2 4323-8 ####[facility] LABCLIA [id number] [place] [address] Urea nitrogen [Mass/Vol] 14 mg/dL Normal 7-21 [facility] Comment on above: Order Comment: Speci men Type: BLOOD SPECIMENOrdering Facility: [facility] Address: [address] [place] [address] Performed By: #### 2 4323-8 ####[facility] LABCLIA [id number] [place] [address] Albumin [Mass/Vol] 4.4 g/dL 3.9 - 4.9 g/dL [facility] ALP [Catalytic activity/Vol] 45 U/L 34 - 123 U/L [facility] ALT [Catalytic activity/Vol] 11 U/L 7 - 38 U/L [facility] Anion gap [Moles/Vol] 7 mmol/L Low 9 - 18 mmol/L [facility] AST [Catalytic activity/Vol] 22 U/L 13 - 35 U/L [facility] Bilirubin [Mass/Vol] 0.4 mg/dL 0.2 - 1.3 mg/dL [facility] Calcium [Mass/Vol] 9.7 mg/dL 8.5 - 10. 2 mg/dL [facility] Chloride [Moles/Vol] 102 mmol/L 97 - 105 mmol/L [facility] CO2 [Moles/Vol] 29 mmol/L 22 - 30 mmol/L [facility] Creatinine [Mass/Vol] 0.85 mg/dL 0.58 - 0.96 mg/dL [facility] Estimated Glomerular Filtration Rate 66 mL/min/1.73m >=60 mL/min/1.73m [facility] Glucose [Mass/Vol] 60 mg/dL Low 74 - 99 mg/dL [facility] Potassium [Moles/Vol] 5.1 mmol/L 3.7 - 5.1 mmol/L [facility] Protein [Mass/Vol] 6.8 g/dL 6.3 - 8.0 g/dL [facility] Sodium [Moles/Vol] 138 mmol/L 136 - 144 mmol/L [facility] Urea nitrogen [Mass/Vol] 14 mg/dL 7 - 21 mg/dL [facility] Ferritin SerPl-mCncon 2021 Ferritin [Mass/Vol] 84.5 ng/mL Normal 14.7-205.1 [facility] Comment on above: Order Comment: Speci men Type: BLOOD SPECIMENOrdering Facility: [facility] Address: [address] [place] [address] Performed By: #### 2 276-4 ####[facility] LABIA [id number] [place] [address] [place] Iron and Iron binding capaci panel 11-16-2021 Iron [Mass/Vol] 71 ug/dL Normal 41-186 [facility] Comment on above: Order Comment: Speci men Type: BLOOD SPECIMENOrdering Facility: [facility] Address: [address] [place] [address] Performed By: #### 5 0190-8 ####[facility] LABCLIA [id number] [place] [address] [place] Iron binding capacity [Mass/Vol] 376 ug/dL Normal 232-386 [facility] Comment on above: Order Comment: Speci men Type: BLOOD SPECIMENOrdering Facility: [facility] Address: [address] [place] [address] Performed By: #### 5 0190-8 ####[facility] LABCLIA [id number] [place] [address] [place] Iron/TIBC [Molar ratio] 18.9 % Normal 15.0-57.0 [facility] Comment on above: Order Comment: Speci men Type: BLOOD SPECIMENOrdering Facility: [facility] Address: [address] [place], [place] [address] Performed By: #### 5 0190-8 ####[facility] LABCLIA [id number] [address] [place] FERRITINon 10-25-2021 Ferritin [Mass/Vol] 79.0 ng/mL Normal 8.0-252.0 [facility] Comment on above: Performed By: #### F ETIBC, FERR ####[facility] [id number] [place] [address]Dr. Devorah James IRON AND TIBCon 10-25-2021 % SATURATION 13.2 % Normal [facility] Comment on above: Performed By: #### F ETIBC, FERR ####[facility] [id number] [place] [address]Dr. Devorah James Iron [Mass/Vol] 38.0 ug/dL Critically low 50.0-170.0 [facility] Comment on above: Performed By: #### F ETIBC, FERR ####[facility] [id number] [place] [address]Dr. Devorah James TIBC DIRECT 288.0 ug/dL Normal 250.0-450.0 [facility] Comment on above: Performed By: #### F ETIBC, FERR ####[facility] [id number] [place] [address]Dr. Devorah James RETICULOCYTEon 10-25-2021 RETIC 1.23 % Normal 0.60-3.10 [facility] Comment on above: Performed By: #### R ETIC ####[facility] [address] [place] [address]Dr. Devorah James CNPZoraida 09-28-2021 CNPN Telephone ([place]) NINA GEORGE ([id number]) 1935 F Date Time Provider Department 09/28/21 CHARISMA CYR During your visit today, we recorded the following information about you: Charisma Cyr RN 09/28/2021 2:16 PM Signed ----- Message from Sherron Lyon RN sent at 09/28/2021 9:05 AM EDT ----- ----- Message ----- From: Binh Hernandez MD Sent: 09/27/2021 6:12 PM EDT To: Sherron Lyon RN Fl Tiff. Can you please let patient know that ferritin came back normal. No change in recommendations. We will see her back for repeat assessment in 6 weeks. Thanks, [facility] Charisma Cyr RN 09/28/2021 4:00 PM Signed Informed pt of Dr Hernandez's message. Pt verbalized understanding and denies further needs at this time. Charisma Cyr RN Allergies As of Date: 09/28/2021 Noted Allergy Reaction EYE DROPS RELIEF 11/25/2013 16 - Unknown Comments: Glaucoma eye drops PREDNISONE 11/25/2013 14 - Other: See Comments Comments: Palpitations, sob Date Reviewed: 09/26/2021 Reviewed by: Sade Padilla Ma - Fully Assessed Reason for Visit: Results [95] Prescriptions as of 09/28/2021 - aspirin 81 mg chewable tablet Take 81 mg by mouth once daily. - famotidine (PEPCID) 20 mg tablet Take 1 tablet by mouth twice daily. - latanoprost (XALATAN) 0.005 % ophthalmic solution INSTILL 1 DROP RIGHT EYE EVERY EVENING - dorzolamide-timolol (COSOPT) 22.3-6.8 mg/mL ophthalmic solution INSTILL ONE DROP TO RIGHT EYE TWICE A DAY - loratadine (CLARITIN ORAL) Take by mouth. - lisinopril (ZESTRIL, PRINIVIL) 5 mg tablet Take 2.5 mg in the morning, take BP at 4p.m., if elevated over 145 mm/Hg systolic, take another 2.5 mg. - ACETAMINOPHEN (TYLENOL 8 HOUR ORAL) Take by mouth as needed. - aspirin, enteric coated (ASPIRIN, ENTERIC COATED) 81 mg EC tablet Take 81 mg by mouth once daily. - ALPRAZolam (XANAX) 0.25 mg tablet Take 0.25 mg by mouth three times daily as needed. 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 HTN (hypertension) [I10] 05/29/2014 Palpitations [R00.2] 05/25/2015 Precordial pain [R07.2] 06/10/2015 Iron deficiency anemia due to chronic blood los*06/14/2021 Encounter Status:Closed by CHARISMA CYR on 09/28/21 Normal [facility] CBC W Auto Differential pane l (Bld)on 09-26-2021 Basophils (Bld) [#/Vol] 0.05 10*3/uL Normal <0.11 [facility] Comment on above: Order Comment: Speci men Type: BLOOD SPECIMENOrdering Facility: [facility] Address: [address] [place] [address] Performed By: #### 5 7021-8 ####[facility] LABCLIA [id number] [place] [address] Basophils/100 WBC (Bld) 0.9 % Normal [facility] Comment on above: Order Comment: Speci men Type: BLOOD SPECIMENOrdering Facility: [facility] Address: [address] [address] Performed By: #### 5 7021-8 ####[facility] LABCLIA [id number] [place] [address] Differential cell count method Nom (Bld) Auto Normal [facility] Comment on above: Order Comment: Speci men Type: BLOOD SPECIMENOrdering Facility: [facility] Address: [address] [place] [address] Performed By: #### 5 7021-8 ####[facility] LABCLIA [id number] [place] [address] Eosinophils (Bld) [#/Vol] 0.23 10*3/uL Normal <0.46 [facility] Comment on above: Order Comment: Speci men Type: BLOOD SPECIMENOrdering Facility: [facility] Address: [address] [place] [address] Performed By: #### 5 7021-8 ####[facility] LABCLIA [id number] [place] [address] Eosinophils/100 WBC (Bld) 4.1 % Normal [facility] Comment on above: Order Comment: Speci men Type: BLOOD SPECIMENOrdering Facility: [facility] Address: [address] [place] [address] Performed By: #### 5 7021-8 ####[facility] LABCLIA [id number] [place] [address] Erythrocyte distribution width (RBC) [Ratio] 24.6 % High 11.5-15.0 [facility] Comment on above: Order Comment: Speci men Type: BLOOD SPECIMENOrdering Facility: [facility] Address: [address] [place] [address] Performed By: #### 5 7021-8 ####[facility] LABCLIA [id number] [place] [address] Hematocrit (Bld) [Volume fraction] 43.4 % Normal 36.0-46.0 [facility] Comment on above: Order Comment: Speci men Type: BLOOD SPECIMENOrdering Facility: [facility] Address: [address] [place] [address] Performed By: #### 5 7021-8 ####[facility] LABCLIA [id number] [place] [address] Hemoglobin (Bld) [Mass/Vol] 13.4 g/dL Normal 11.5-15.5 [facility] Comment on above: Order Comment: Speci men Type: BLOOD SPECIMENOrdering Facility: [facility] Address: [address] [place] [address] Performed By: #### 5 7021-8 ####[facility] LABCLIA [id number] [place] [address] IMMATURE GRAN % 0.5 % Normal [facility] Comment on above: Order Comment: Speci men Type: BLOOD SPECIMENOrdering Facility: [facility] Address: [address] [place] [address] Performed By: #### 5 7021-8 ####[facility] LABIA [id number] [place] [address] IMMATURE GRAN ABS 0.03 k/uL Normal <0.10 [facility] Comment on above: Order Comment: Speci men Type: BLOOD SPECIMENOrdering Facility: [facility] Address: [address] [place] [address] Performed By: #### 5 7021-8 ####[facility] LABCLIA [id number] [place] [address] Lymphocytes (Bld) [#/Vol] 1.30 10*3/uL Normal 1.00-4.00 [facility] Comment on above: Order Comment: Speci men Type: BLOOD SPECIMENOrdering Facility: [facility] Address: [address] [place] [address] Performed By: #### 5 7021-8 ####[facility] LABIA [id number] [place] [address] Lymphocytes/100 WBC (Bld) 23.2 % Normal [facility] Comment on above: Order Comment: Speci men Type: BLOOD SPECIMENOrdering Facility: [facility] Address: [address] [place] [address] Performed By: #### 5 7021-8 ####[facility] LABCLIA [id number] [place] [address] MCH (RBC) [Entitic mass] 25.3 pg Low 26.0-34.0 [facility] Comment on above: Order Comment: Speci men Type: BLOOD SPECIMENOrdering Facility: [facility] Address: [address] [place] [address] Performed By: #### 5 7021-8 ####[facility] LABCLIA [id number] [place] [address] MCHC (RBC) [Mass/Vol] 30.9 g/dL Normal 30.5-36.0 [facility] Comment on above: Order Comment: Speci men Type: BLOOD SPECIMENOrdering Facility: [facility] Address: [address] [place] [address] Performed By: #### 5 7021-8 ####[facility] LABCLIA [id number] [place] [address] MCV (RBC) [Entitic vol] 81.9 fL Normal 80.0-100.0 [facility] Comment on above: Order Comment: Speci men Type: BLOOD SPECIMENOrdering Facility: [facility] Address: [address] [place] [address] Performed By: #### 5 7021-8 ####[facility] LABCLIA [id number] [place] [address] Monocytes (Bld) [#/Vol] 0.52 10*3/uL Normal <0.87 [facility] Comment on above: Order Comment: Speci men Type: BLOOD SPECIMENOrdering Facility: [facility] Address: [address] [place] [address] Performed By: #### 5 7021-8 ####[facility] LABCLIA [id number] [place] [address] Monocytes/100 WBC (Bld) 9.3 % Normal [facility] Comment on above: Order Comment: Speci men Type: BLOOD SPECIMENOrdering Facility: [facility] Address: [address] [place], [place] [address] Performed By: #### 5 7021-8 ####[facility] LABCLIA [id number] [place] [address] Neutrophils (Bld) [#/Vol] 3.47 10*3/uL Normal 1.45-7.50 [facility] Comment on above: Order Comment: Speci men Type: BLOOD SPECIMENOrdering Facility: [facility] Address: [address] [place] [address] Performed By: #### 5 7021-8 ####[facility] LABCLIA [id number] [place] [address] Neutrophils/100 WBC (Bld) 62.0 % Normal [facility] Comment on above: Order Comment: Speci men Type: BLOOD SPECIMENOrdering Facility: [facility] Address: [address] [place], [place] [address] Performed By: #### 5 7021-8 ####[facility] LABIA [id number] [place] [address] Nucleated RBC (Bld) [#/Vol] 10*3/uL Normal <0.01 [facility] Comment on above: Order Comment: Speci men Type: BLOOD SPECIMENOrdering Facility: [facility] Address: [address] [place], [place] [address] Performed By: #### 5 7021-8 ####[facility] LABCLIA [id number] [place] [address] Nucleated RBC/100 WBC (Bld) [Ratio] 0.0 /100 WBC Normal [facility] Comment on above: Order Comment: Speci men Type: BLOOD SPECIMENOrdering Facility: [facility] Address: [address] [place], [place] [address] Performed By: #### 5 7021-8 ####[facility] LABCLIA [id number] [place] [address] Platelet mean volume (Bld) [Entitic vol] 9.9 fL Normal 9.0-12.7 [facility] Comment on above: Order Comment: Speci men Type: BLOOD SPECIMENOrdering Facility: [facility] Address: [address] [place] [address] Performed By: #### 5 7021-8 ####[facility] LABCLIA [id number] [place] [address] Platelets (Bld) [#/Vol] 175 10*3/uL Normal 150-400 [facility] Comment on above: Order Comment: Speci men Type: BLOOD SPECIMENOrdering Facility: [facility] Address: [address] [place] [address] Performed By: #### 5 7021-8 ####[facility] LABIA [id number] [place] [address] RBC (Bld) [#/Vol] 5.30 10*6/uL High 3.90-5.20 [facility] Comment on above: Order Comment: Speci men Type: BLOOD SPECIMENOrdering Facility: [facility] Address: [address] [place] [address] Performed By: #### 5 7021-8 ####[facility] LABIA [id number] [place] [address] WBC (Bld) [#/Vol] 5.60 10*3/uL Normal 3.70-11.00 [facility] Comment on above: Order Comment: Speci men Type: BLOOD SPECIMENOrdering Facility: [facility] Address: [address] [place] [address] Performed By: #### 5 7021-8 ####[facility] LABCLIA [id number] [place] [address] Abs Immature Gran 0.03 k/uL <0.10 k/uL [facility] Basophils (Bld) [#/Vol] 0.05 10*3/uL <0.11 k/uL [facility] Basophils/100 WBC (Bld) 0.9 % [facility] Differential cell count method Nom (Bld) Auto [facility] Eosinophils (Bld) [#/Vol] 0.23 10*3/uL <0.46 k/uL [facility] Eosinophils/100 WBC (Bld) 4.1 % [facility] Erythrocyte distribution width (RBC) [Ratio] 24.6 % High 11.5 - 15.0 % [facility] Hematocrit (Bld) [Volume fraction] 43.4 % 36.0 - 46.0 % [facility] ic Hemoglobin (Bld) [Mass/Vol] 13.4 g/dL 11.5 - 15.5 g/dL [facility] Immature Gran % 0.5 % [facility] Lymphocytes (Bld) [#/Vol] 1.30 10*3/uL 1.00 - 4.00 k/uL [facility] Lymphocytes/100 WBC (Bld) 23.2 % [facility] MCH (RBC) [Entitic mass] 25.3 pg Low 26.0 - 34.0 pg [facility] MCHC (RBC) [Mass/Vol] 30.9 g/dL 30.5 - 36.0 g/dL [facility] MCV (RBC) [Entitic vol] 81.9 fL 80.0 - 100.0 fL [facility] Monocytes (Bld) [#/Vol] 0.52 10*3/uL <0.87 k/uL [facility] Monocytes/100 WBC (Bld) 9.3 % [facility] Neutrophils (Bld) [#/Vol] 3.47 10*3/uL 1.45 - 7.50 k/uL [facility] Neutrophils/100 WBC (Bld) 62.0 % [facility] Nucleated RBC (Bld) [#/Vol] 10*3/uL <0.01 k/uL [facility] Nucleated RBC/100 WBC (Bld) [Ratio] 0.0 /100 WBC [facility] Platelet mean volume (Bld) [Entitic vol] 9.9 fL 9.0 - 12.7 fL [facility] Platelets (Bld) [#/Vol] 175 10*3/uL 150 - 400 k/uL [facility] RBC (Bld) [#/Vol] 5.30 10*6/uL High 3.90 - 5.2 0 m/uL [facility] WBC (Bld) [#/Vol] 5.60 10*3/uL 3.70 - 11. 00 k/uL [facility] CNOVSPon 09-26-2021 CNOVSP Visit (SP) Office ([place]) GEORGENINA HERNANDEZ ([id number]) 1935 F Date Time Provider Department 09/26/21 2:00 PM BINH HERNANDEZ During your visit today, we recorded the following information about you: Temperature Pulse Respiration Blood pressure 97.9 degrees 64/minute 16/minute 134/65 Weight Height 49.4 kg 1.511 m Binh Hernandez MD 09/26/2021 2:02 PM Signed HEMATOLOGY FOLLOW UP Elements in this clinic note that are critical to medical decision making have been carefully reviewed and included from my prior clinic note dated: July 26, 2021 September 26, 2021 PCP and other physicians involved in patient's care: Erik Zimmerman (PCP), Ta Espana (GI) DIAGNOSIS: Iron deficiency anemia HEMATOLOGICAL HISTORY: ? Patient mentions being iron deficient in 2019 or 2019 for which she took oral iron for a few months. EGD and colonoscopy at that time (Dr. Hernandez) did not reveal any abnormalities. I do not have these results. ? Patient was referred to me in June 2021 for iron deficiency anemia. This was based on microcytic anemia initially noted in February 2021. Hemoglobin was 10.4 g/dL. MCV was 78 fL and ferritin was 14. This was new since March 2020 when the CBC was normal. Oral iron was complicated by significant constipation ? June 2021, iron sucrose (total 900 mg) INTERVAL HISTORY: Nina comes back for follow-up. She is here with her daughter and sister. Overall doing well. No new symptoms. She saw Dr. Espana who did not feel the need to do scopes. ROS is negative except that mentioned in HPI PAST MEDICAL SURGICAL FAMILY AND SOCIAL HISTORY: She has a history of -gastroesophageal reflux disease -iron deficiency anemia -hypertension -osteoporosis -left carotid stenosis No pertinent surgical or family history. No history of smoking. MEDICATIONS AND ALLERGIES: Reviewed PHYSICAL EXAM BP 134/65 Pulse 64 Temp 36.6 ?C (97.9 ?F) (Temporal) Resp 16 Ht 151.1 cm (4' 11.49 ) Wt 49.4 kg (109 lb) SpO2 99% BMI 21.66 kg/m? Head atraumatic, no pallor or icterus, breathing comfortably, neuro grossly non-focal, skin without rash, extremities without swelling LABORATORY, IMAGING AND PATHOLOGY 04-03-20 hemoglobin 13.7, MCV 88, ferritin 23 02-21-21 hemoglobin 10.4, MCV 78 02-28-21 ferritin 14 03-06-21 hemoglobin 9.7, MCV May oral iron for one month 06-14-21 hemoglobin 8.9, MCV 69, ferritin 16 June 2021 one dose of iron sucrose 07-12-2021 hemoglobin 9.6, MCV 73, ferritin 86 09-26-21 hemoglobin 13.4, MCV 81, ferritin in process ASSESSMENT AND RECOMMENDATIONS 85 female with iron deficiency anemia Oral iron was associated with significant GI upset. She received a total of 900 mg iron sucrose from June-July 2021. This resulted in improvement of symptoms and normalization of hemoglobin on labs today. She has seen Dr. Espana who did not feel the need to do scopes. Repeat iron profile assessment in [address] Zimmerman's office, after which she will come back and see us. Binh Hernandez MD I spent a total of 15 minutes on the date of the service which included preparing to see the patient, [id number] patient care, completing clinical documentation, obtaining and/or reviewing separately obtained history, performing a medically appropriate examination, counseling and educating the patient/family/caregi corie, ordering medications, tests, or procedures, independently interpreting results (not separately reported) and communicating results to the patient/family/caregi corie. CC: Erik Zimmerman Referring Provider: BINH HERNANDEZ [[id number]] Allergies As of Date: 09/26/2021 Noted Allergy Reaction EYE DROPS RELIEF 11/25/2013 16 - Unknown Comments: Glaucoma eye drops PREDNISONE 11/25/2013 14 - Other: See Comments Comments: Palpitations, sob Date Reviewed: 09/26/2021 Reviewed by: Sade Padilla Ma - Fully Assessed Reason for Visit: Anemia [6] Primary Visit Diagnosis:Iron deficiency anemia due to chronic blood loss [D50.0] Order(s):CBC + DIFF [SQCBCDIF] Order #: [id number] FUTURE IRON + TIBC [SQIRON] Order #: [id number] FUTURE FERRITIN BLD [SQFERR] Order #: [id number] FUTURE famotidine (PEPCID) 20 mg tabletTake 1 tablet by mouth twice daily.Disp: 60 tabletRfl: 3 CBC + DIFF [SQCBCDIF] Order #: [id number] FUTURE IRON + TIBC [SQIRON] Order #: [id number] FUTURE FERRITIN BLD [SQFERR] Order #: [id number] FUTURE Disposition: Return in about 6 weeks (around 11/07/2021). Follow-up and Disposition History for Encounter Date Provider Department Center 09/26/2021 [id number] HERNANDEZ Prescriptions as of 09/26/2021 - aspirin 81 mg chewable tablet Take 81 mg by mouth once daily. - famotidine (PEPCID) 20 mg tablet Take 1 tablet by mouth twice daily. - latanoprost (XALATAN) 0.005 % ophthalmic solution INSTILL 1 DROP RIGHT EYE [place] (more content not included)... Normal [facility] Ferritin SerPl-mCncon 2021 Ferritin [Mass/Vol] 116.0 ng/mL Normal 14.7-205.1 [facility] Comment on above: Order Comment: Speci men Type: BLOOD SPECIMENOrdering Facility: [facility] Address: [address] [place] [address] [place] [id number] Performed By: #### 5 0190-8, 2276-4 ####[facility] LABCLIA [id number] [place] [address] [place] Iron and Iron binding capaci ty panelon 09-26-2021 Iron [Mass/Vol] 39 ug/dL Low 41-186 [facility] Comment on above: Order Comment: Speci men Type: BLOOD SPECIMENOrdering Facility: [facility] Address: [address] [place], [place] [id number] Performed By: #### 5 0190-8, 2275-06 ####[facility] LABCLIA [id number] [place] [address] [place] Iron binding capacity [Mass/Vol] 348 ug/dL Normal 232-386 [facility] Comment on above: Order Comment: Speci men Type: BLOOD SPECIMENOrdering Facility: [facility] Address: [address] [place] [address] Performed By: #### 5 0190-8, 2275-06 ####[facility] LABCLIA [id number] [place] [address] [place] Iron/TIBC [Molar ratio] 11.2 % Low 15.0-57.0 [facility] Comment on above: Order Comment: Speci men Type: BLOOD SPECIMENOrdering Facility: [facility] Address: [address] [place] [address] Performed By: #### 5 0190-8, 2275-06 ####[facility] LABCLIA [id number] [place] [address] [place] PROF CHEM 8 (BAS METB)on Anion gap [Moles/Vol] 12.6 mmol/L Normal [facility] Comment on above: Performed By: #### B MP ####[facility] [address] [place], [place] [address]Qg. Devorah James Calcium [Mass/Vol] 8.4 mg/dL Critically low 8.5-10.1 [facility] Comment on above: Performed By: #### B MP ####[facility] [address] [place], [place] [address]Aw. Devorah James Chloride [Moles/Vol] 104 mmol/L Normal 98-107 [facility] Comment on above: Performed By: #### B MP ####[facility] [address] [place] [address]Dr. Devorah James CO2 [Moles/Vol] 25.8 mmol/L Normal 21.0-32.0 [facility] Comment on above: Performed By: #### B MP ####[facility] [address] [place] [address]Dr. Devorah Jacob Creatinine [Mass/Vol] 0.96 mg/dL Normal 0.55-1.02 [facility] Comment on above: Performed By: #### B MP ####[facility] [address] [place] [address]Dr. Elsycindy Jacob EGFR-AF CENTRAL AFRICAN >60 Normal >=60 [facility] Comment on above: Performed By: #### B MP ####[facility] [address] [place], [place] [address]Dr. Devorah James EGFR-NON AF CENTRAL AFRICAN 55 mL/min/1.73m2 Critically low >=60 [facility] Comment on above: Performed By: #### B MP ####[facility] [address] [place] [address]Dr. Devorah Jacob Glucose [Mass/Vol] 74 mg/dL Normal 74-106 [facility] [place] [facility] Comment on above: Performed By: #### B MP ####[facility] [address] [place] [address]Dr. Devorah James Potassium [Moles/Vol] 4.4 mmol/L Normal 3.5-5.1 [facility] Comment on above: Performed By: #### B MP ####[facility] [address] [place] [address]Dr. Devorah James Sodium [Moles/Vol] 138 mmol/L Normal 136-145 [facility] [place] [facility] Comment on above: Performed By: #### B MP ####[facility] [address] [place] [address]Dr. Devorah James Urea nitrogen [Mass/Vol] 16.0 mg/dL Normal 7.0-18.0 [facility] Comment on above: Performed By: #### B MP ####[facility] [address] [place], [place] [address]XhDr. Devorah James Urea nitrogen/Creatinine [Mass ratio] 16.7 mg/mg Normal [facility] Comment on above: Performed By: #### B MP ####[facility] [address] [place], [place] [address]NpDr. Devorah James VITAMIN D 25 OHon 09-20-2021 VIT D 25-OH 51.6 ng/mL Normal [facility] Comment on above: Performed By: #### V ITAD #### [facility] [address] [place] [address] [address] Devorah James VIT D RANGES SEE BELOW Normal [facility] Comment on above: Result Comment: <20 ng/mL Vit D deficient 20 - <30 ng/mL Vit D insufficient 30 - 100 ng/mL Vit D sufficient >100 ng/mL Potential Toxicity Performed By: #### V ITAD #### [facility] [address] [place] [address] [address] Devorah James LACTOFERRIN FECAL QUANTon Lactoferrin, Fecal, Quant. 4.46 ug/mL(g) Normal 0.00-7.24 [facility] Comment on above: Result Comment: . Baseline (normal) 0.00 - 7.24 Elevated >7.24 . An elevated result is indicative of the presence of fecal lactoferrin, a marker of intestinal inflammation. A normal result does not exclude the presence of intestinal inflammation. The test can be used as an in vitro diagnostic aid to distinguish patients with active inflammatory bowel disease (IBD) from those with non-inflammatory irritable bowel syndrome (IBS). Performed By: #### L ACTFQ #### [facility] [address] [place] [address] Dr. Devorah James C. DIFF PCRon 09-02-2021 C. DIFFICILE PCR Negative Normal NEGATIVE [facility] Comment on above: Performed By: #### C DIFPOC #### [facility] [address] [place] [address] [address] Devorah James OCC BLD IMMUNO SCREENon OCCULT BLOOD Negative Normal NEGATIVE [facility] Comment on above: Performed By: #### O BSCRN ####[facility] [address] [place], [place] [address]DkDarvin James MG MAMM SCREEN 3D VALERIY CADon 08-04-2021 MG MAMM SCREEN 3D VALERIY CAD Patient: GEORGENINA HERNANDEZ. Exam Date: 08/04/2021 : 1935 Gender:F Ordering : DR ERIK ZIMMERMAN D.O. Admission #: [id number] Family : Order #: [id number] CLICK HERE TO VIEW EXAM RADIOLOGY REPORT PROCEDURE: MAMMOGRAM SCREENING 3D BILATERAL CAD COMPARISON: MG MAMM SCREEN 3D VALERIY CAD, 08/03/2020. MG MAMM SCREEN VALERIY W CAD, 07/30/2019. INDICATIONS: Screening mammography Calculator Name NCI Breast Cancer Risk Assessment Tool 5 Year Breast Cancer Risk Not Applicable. Lifetime Breast Cancer Risk Not Applicable. Personal Breast Cancer No Personal Ovarian Cancer No Treatments None Family Cancers Sister with breast cancer at age 54; Father with panc/liver cancer at age 76. LOCATION: [facility] BREAST COMPOSITION: Scattered areas fibroglandular density. FINDINGS: DIAGNOSTIC CATEGORY 2--BENIGN FINDING: RIGHT BREAST: No significant suspicious finding. Stable biopsy marker clip and benign-appearing calcification. No significant change has occurred. LEFT BREAST: No significant suspicious finding. Stable benign appearing calcifications. No significant change has occurred. RECOMMENDATIONS: ROUTINE MAMMOGRAM AND CLINICAL EVALUATION IN 12 MONTHS. PLEASE NOTE: A NORMAL MAMMOGRAM DOES NOT EXCLUDE THE POSSIBILITY OF BREAST CANCER. A CLINICALLY SUSPICIOUS PALPABLE LUMP SHOULD BE BIOPSIED. Dictated by: Enriqueta Aviles M.D. on 08/04/2021 at 13:50 Approved by: Enriqueta Aviles M.D. on 08/04/2021 at 13:54 Normal [facility] CNOVSPon 07-26-2021 CNOVSP Visit (SP) Office ([facility]) NINA GEORGE ([id number]) 1935 F Date Time Provider Department 07/26/21 1:00 PM BINH HERNANDEZ During your visit today, we recorded the following information about you: Temperature Pulse Respiration Blood pressure 97.3 degrees 64/minute 16/minute 113/82 Weight Height 49.4 kg 1.511 m Binh Hernandez MD 07/26/2021 1:32 PM Signed HEMATOLOGY FOLLOW UP Elements in this clinic note that are critical to medical decision making have been carefully reviewed and included from my prior clinic note dated: June 14, 2021 July 26, 2021 PCP and other physicians involved in patient's care: Erik Zimmerman (PCP) DIAGNOSIS: Iron deficiency anemia HEMATOLOGICAL HISTORY: ? Patient mentions of being iron deficient in 2018 or 2019 for which she took oral iron for a few months. EGD and colonoscopy at that time (Dr. Hernandez) did not reveal any abnormalities. I do not have these results. ? Patient was referred to me in June 2021 for iron deficiency anemia. This was based on microcytic anemia initially noted in February 2021. Hemoglobin was 10.4 g/dL. MCV was 78 fL and ferritin was 14. This was new since March 2020 when the CBC was normal. Oral iron was complicated by significant constipation ? June 2021, iron sucrose INTERVAL HISTORY: Nina comes back for follow-up. She is here with a friend, Cory. Overall doing well. No new symptoms. She had 1 dose of iron sucrose. She is awaiting GI appointment. ROS is negative except that mentioned in HPI PAST MEDICAL SURGICAL FAMILY AND SOCIAL HISTORY: MEDICATIONS AND ALLERGIES: Reviewed PHYSICAL EXAM BP 113/82 Pulse 64 Temp 36.3 ?C (97.3 ?F) (Temporal) Resp 16 Ht 151.1 cm (4' 11.49 ) Wt 49.4 kg (108 lb 12.8 oz) SpO2 99% BMI 21.62 kg/m? Head atraumatic, no pallor, icterus or lymphadenopathy, lungs clear to auscultation, heart sounds regular, abdomen soft without distension or organomegaly, neuro grossly non-focal, skin without rash, extremities without swelling LABORATORY, IMAGING AND PATHOLOGY 04-03-20 hemoglobin 13.7, MCV 88, ferritin 23 02-21-21 hemoglobin 10.4, MCV 78 02-28-21 ferritin 14 03-06-21 hemoglobin 9.7, MCV May oral iron for one month 06-14-21 hemoglobin 8.9, MCV 69, ferritin 16 June 2021 one dose of iron sucrose 07-12-2021 hemoglobin 9.6, MCV 73, ferritin 86 ASSESSMENT AND RECOMMENDATIONS 85 female with iron deficiency anemia Oral iron has been associated with significant GI upset. Most recent labs show improving ferritin levels but persistent microcytic anemia. She received one dose of iron sucrose 300 mg and will need two additional doses. After that, I will see her back in September 2021 for a repeat lab assessment. She has been scheduled to see Dr. Uribe end of August 2021. Binh Hernandez MD I spent a total of 15 minutes on the date of the service which included preparing to see the patient, [id number] patient care, completing clinical documentation, obtaining and/or reviewing separately obtained history, performing a medically appropriate examination, counseling and educating the patient/family/caregi corie, ordering medications, tests, or procedures, independently interpreting results (not separately reported) and communicating results to the patient/family/caregi corie. 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 Follow-up and Disposition History for Encounter Date Provider Department Center 07/26/2021 [id number] [facility] Prescriptions as of 07/26/2021 - latanoprost (XALATAN) 0.005 % ophthalmic solution INSTILL 1 DROP RIGHT EYE EVERY EVENING - dorzolamide-timolol (COSOPT) 22.3-6.8 mg/mL ophthalmic solution INSTILL ONE DROP TO RIGHT EYE TWICE A DAY - loratadine (CLARITIN ORAL) Take by mouth. - lisinopril (ZESTRIL, PRINIVIL) 5 mg tablet Take 2.5 mg in the morning, take BP at 4p.m., if elevated over 145 mm/Hg systolic, take another 2.5 mg. - ACETAMINOPHEN (TYLENOL 8 HOUR ORAL) Take by mouth as needed. - aspirin, enteric coated (ASPIRIN, ENTERIC COATED) 81 mg EC tablet Take 81 mg by mouth once daily. - omeprazole (PRILOSEC) 20 mg capsule Take 20 mg by mouth once daily. - ALPRAZolam (XANAX) 0.25 mg tablet Take 0.25 mg by mouth three times daily as needed. 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 Normal [facility] Stoney 07-18-2021 EAGLEN Telephone (CRISTINE) NINA GEORGE ([id number]) 1935 F Date Time Provider Department 07/18/21 CHARISMA HENDERSON During your visit today, we recorded the following information about you: Charisma Henderson RN 07/18/2021 3:11 PM Signed Received call from pt stating she had her labs done by her PCP and will bring in the results when she comes in for her appt. PSS: Please cancel pt's lab appt. She will still be in for her f/u with SJK. Thank you. NASEEM Vallejo Pss 07/18/2021 3:22 PM Signed Lab appt cancelled Allergies As of Date: 07/18/2021 Noted Allergy Reaction EYE DROPS RELIEF 11/25/2013 16 - Unknown Comments: Glaucoma eye drops PREDNISONE 11/25/2013 14 - Other: See Comments Comments: Palpitations, sob Date Reviewed: 06/14/2021 Reviewed by: Johnna Alva MA - Fully Assessed Reason for Visit: Results [95] Appointment [186] Prescriptions as of 07/18/2021 - latanoprost (XALATAN) 0.005 % ophthalmic solution INSTILL 1 DROP RIGHT EYE EVERY EVENING - dorzolamide-timolol (COSOPT) 22.3-6.8 mg/mL ophthalmic solution INSTILL ONE DROP TO RIGHT EYE TWICE A DAY - loratadine (CLARITIN ORAL) Take by mouth. - lisinopril (ZESTRIL, PRINIVIL) 5 mg tablet Take 2.5 mg in the morning, take BP at 4p.m., if elevated over 145 mm/Hg systolic, take another 2.5 mg. - ACETAMINOPHEN (TYLENOL 8 HOUR ORAL) Take by mouth as needed. - aspirin, enteric coated (ASPIRIN, ENTERIC COATED) 81 mg EC tablet Take 81 mg by mouth once daily. - omeprazole (PRILOSEC) 20 mg capsule Take 20 mg by mouth once daily. - ALPRAZolam (XANAX) 0.25 mg tablet Take 0.25 mg by mouth three times daily as needed. 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 Devorah James Basophils/100 WBC (Bld) 1.1 % Normal 0.2-2.0 [facility] Comment on above: Performed By: #### C BC #### [facility] [address] [place] [address] [address] Devorah James EO # 0.3 103/ul Normal 0.0-0.7 [facility] Comment on above: Performed By: #### C BC #### [facility] [address] [place] [address] Dr. Devorah James Eosinophils/100 WBC (Bld) 4.8 % Normal 0.9-7.0 [facility] Comment on above: Performed By: #### C BC #### [facility] [address] [place] [address] Dr. Devorah James Erythrocyte distribution width (RBC) [Ratio] 24.4 % Critically high 11.0-15.0 [facility] Comment on above: Performed By: #### C BC #### [facility] [address] [place] [address] Dr. Devorah James Hematocrit (Bld) [Volume fraction] 35.0 % Critically low 36.0-48.0 [facility] Comment on above: Performed By: #### C BC #### [facility] [address] [place] [address] Dr. Devorah James Hemoglobin (Bld) [Mass/Vol] 9.6 g/dL Critically low 12.0-16.0 [facility] Comment on above: Performed By: #### C BC #### [facility] [address] [place] [address] Dr. Devorah James IG # 0.02 10e3/ul Normal 0.00-0.03 [facility] Comment on above: Performed By: #### C BC #### [facility] [address] [place] [address] Dr. Devorah James IG % 0.4 % Normal 0.0-0.5 [facility] Comment on above: Performed By: #### C BC #### [facility] [address] [place] [address] Dr. Devorah James LYMPH # 1.4 103/ul Normal 1.2-3.8 [facility] Comment on above: Performed By: #### C BC #### [facility] [address] [place] [address] Dr. Devorah James Lymphocytes/100 WBC (Bld) 24.7 % Normal 20.5-60.0 [facility] Comment on above: Performed By: #### C BC #### [facility] [address] [place] [address] Dr. Devorah James MANUAL DIFF REQ NO Normal [facility] [place] [facility] Comment on above: Performed By: #### C BC #### [facility] [address] [place] [address] Dr. Devorah James MCH (RBC) [Entitic mass] 20.2 pg Critically low 26.7-34.0 [facility] Comment on above: Performed By: #### C BC #### [facility] [address] [place] [address] Dr. Devorah James MCHC (RBC) [Mass/Vol] 27.4 g/dL Critically low 29.9-35.2 [facility] Comment on above: Performed By: #### C BC #### [facility] [address] [place] [address] Dr. Devorah James MCV (RBC) [Entitic vol] 73.7 fL Critically low 81.0-99.0 [facility] Comment on above: Performed By: #### C BC #### [facility] [address] [place] [address] Dr. Devorah James MONO # 0.6 103/ul Normal 0.3-0.8 [facility] Comment on above: Performed By: #### C BC #### [facility] [address] [place] [address] Dr. Devorah James Monocytes/100 WBC (Bld) 11.2 % Normal 1.7-12.0 [facility] Comment on above: Performed By: #### C BC #### [facility] [address] [place] [address] Dr. Devorah James NEUT # 3.2 103/ul Normal 1.4-6.5 [facility] Comment on above: Performed By: #### C BC #### [facility] [address] [place] [address] Dr. Devorah James Neutrophils/100 WBC (Bld) 57.8 % Normal 43.0-75.0 [facility] Comment on above: Performed By: #### C BC #### [facility] [address] [address] [address] Devorah James Platelet mean volume (Bld) [Entitic vol] 10.2 fL Normal 9.5-13.5 [facility] Comment on above: Performed By: #### C BC #### [facility] [address] [place] [address] Dr. Devorah James PLT 212 103/ul Normal 150-450 [facility] Comment on above: Performed By: #### C BC #### [facility] [address] [place] [address] Dr. Devorah James RBC 4.75 106/ul Normal 4.20-5.40 [facility] Comment on above: Result Comment: hypo chromic 2+, anisocytosis, microcytic Performed By: #### C BC #### [facility] [address] [place] [address] Dr. Devorah James WBC 5.5 103/ul Normal 4.0-11.0 [facility] Comment on above: Performed By: #### C BC #### [facility] [address] [place] [address] Dr. Devorah James FERRITINon 07-12-2021 Ferritin [Mass/Vol] 86.0 ng/mL Normal 8.0-252.0 [facility] Comment on above: Performed By: #### F ERR, FETIBC #### [facility] [address] [place] [address] Dr. Devorah James IRON AND TIBCon 07-12-2021 % SATURATION 6.1 % Normal [facility] Comment on above: Performed By: #### F ERR, FETIBC #### [facility] [address] [place] [address] Dr. Devorah James Iron [Mass/Vol] 24.0 ug/dL Critically low 50.0-170.0 [facility] Comment on above: Performed By: #### F ERR, FETIBC #### [facility] [address] [place] [address] Dr. Devorah James TIBC DIRECT 396.0 ug/dL Normal 250.0-450.0 [facility] Comment on above: Performed By: #### F JAZMIN HEARD #### [facility] [address] [address] [address] Devorah Lua 06-24-2021 CNPN Telephone (HEMASA) NINA GEORGE ([id number]) 1935 F Date Time Provider Department 06/24/21 CHARISMA HENDERSON During your visit today, we recorded the following information about you: Charisma Henderson RN 06/24/2021 1:14 PM Signed Received call from pt stating she is not able to get in with Dr Vera until September 01. So she didn't know if she should keep with f/u appt with Dr Hernandez as is on 07/26 or move it back until after her 09/01 appt. SJK: Please advise. NASEEM Vallejo MD 06/24/2021 1:16 PM Signed Please ask her to keep the July end appt. She will need iron labs rechecked. Thanks, SJK Charisma Henderson RN 06/24/2021 1:24 PM Signed Call placed to pt. No answer. Left message informing her of Dr Hernandez's response and to return call if any questions/concerns. Charisma Henderosn RN Allergies As of Date: 06/24/2021 Noted Allergy Reaction EYE DROPS RELIEF 11/25/2013 16 - Unknown Comments: Glaucoma eye drops PREDNISONE 11/25/2013 14 - Other: See Comments Comments: Palpitations, sob Date Reviewed: 06/14/2021 Reviewed by: Johnna Alva MA - Fully Assessed Reason for Visit: Appointment [186] Prescriptions as of 06/24/2021 - latanoprost (XALATAN) 0.005 % ophthalmic solution INSTILL 1 DROP RIGHT EYE EVERY EVENING - dorzolamide-timolol (COSOPT) 22.3-6.8 mg/mL ophthalmic solution INSTILL ONE DROP TO RIGHT EYE TWICE A DAY - loratadine (CLARITIN ORAL) Take by mouth. - lisinopril (ZESTRIL, PRINIVIL) 5 mg tablet Take 2.5 mg in the morning, take BP at 4p.m., if elevated over 145 mm/Hg systolic, take another 2.5 mg. - ACETAMINOPHEN (TYLENOL 8 HOUR ORAL) Take by mouth as needed. - aspirin, enteric coated (ASPIRIN, ENTERIC COATED) 81 mg EC tablet Take 81 mg by mouth once daily. - omeprazole (PRILOSEC) 20 mg capsule Take 20 mg by mouth once daily. - ALPRAZolam (XANAX) 0.25 mg tablet Take 0.25 mg by mouth three times daily as needed. 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 HTN (hypertension) [I10] 05/29/2014 Palpitations [R00.2] 05/25/2015 Precordial pain [R07.2] 06/10/2015 Iron deficiency anemia due to chronic blood los*06/14/2021 Encounter Status:Closed by CHARISMA HENDERSON on 06/24/21 [facility] 06-16-2021 [facility] Telephone ([facility]) NINA GEORGE ([id number]) 1935 F Date Time Provider Department 06/16/21 DARY BRADEN During your visit today, we recorded the following information about you: Allergies As of Date: 06/16/2021 Noted Allergy Reaction EYE DROPS RELIEF 11/25/2013 16 - Unknown Comments: Glaucoma eye drops PREDNISONE 11/25/2013 14 - Other: See Comments Comments: Palpitations, sob Date Reviewed: 06/14/2021 Reviewed by: Johnna Alva MA - Fully Assessed Reason for Visit: Medication Follow-up [270] Cmt: Monoferric not covered - switched plan to Venfoer 300mg x3 weekly doses Prescriptions as of 06/28/2021 - latanoprost (XALATAN) 0.005 % ophthalmic solution INSTILL 1 DROP RIGHT EYE EVERY EVENING - dorzolamide-timolol (COSOPT) 22.3-6.8 mg/mL ophthalmic solution INSTILL ONE DROP TO RIGHT EYE TWICE A DAY - loratadine (CLARITIN ORAL) Take by mouth. - lisinopril (ZESTRIL, PRINIVIL) 5 mg tablet Take 2.5 mg in the morning, take BP at 4p.m., if elevated over 145 mm/Hg systolic, take another 2.5 mg. - ACETAMINOPHEN (TYLENOL 8 HOUR ORAL) Take by mouth as needed. - aspirin, enteric coated (ASPIRIN, ENTERIC COATED) 81 mg EC tablet Take 81 mg by mouth once daily. - omeprazole (PRILOSEC) 20 mg capsule Take 20 mg by mouth once daily. - ALPRAZolam (XANAX) 0.25 mg tablet Take 0.25 mg by mouth three times daily as needed. 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 HTN (hypertension) [I10] 05/29/2014 Palpitations [R00.2] 05/25/2015 Precordial pain [R07.2] 06/10/2015 Iron deficiency anemia due to chronic blood los*06/14/2021 Encounter Status:Closed by DARY BRADEN on 06/28/21 Normal [facility] CBC W Auto Differential pane l (Bld)on 06-14-2021 Basophils (Bld) [#/Vol] 0.06 10*3/uL Normal <0.11 [facility] Comment on above: Order Comment: Speci men Type: BLOOD SPECIMENOrdering Facility: [facility] Address: [address] [place] [address] Performed By: #### 1 4196-0, 66907-0 ####[facility] LABCLIA [id number] [place] [address] Basophils/100 WBC (Bld) 1.2 % Normal [facility] Comment on above: Order Comment: Speci men Type: BLOOD SPECIMENOrdering Facility: [facility] Address: [address] [place] [address] Performed By: #### 1 4196-0, 44256-0 ####[facility] LABCLIA [id number] [place] [address] Differential cell count method Nom (Bld) Auto Normal [facility] Comment on above: Order Comment: Speci men Type: BLOOD SPECIMENOrdering Facility: [facility] Address: [address] [place] [address] Performed By: #### 1 4196-0, 69682-1 ####[facility] LABCLIA [id number] [place] [address] Eosinophils (Bld) [#/Vol] 0.18 10*3/uL Normal <0.46 [facility] Comment on above: Order Comment: Speci men Type: BLOOD SPECIMENOrdering Facility: [facility] Address: [address] [place] [address] Performed By: #### 1 4196-0, 31535-7 ####[facility] LABCLIA [id number] [place] [address] Eosinophils/100 WBC (Bld) 3.6 % Normal [facility] Comment on above: Order Comment: Speci men Type: BLOOD SPECIMENOrdering Facility: [facility] Address: [address] [place] [address] Performed By: #### 1 4196-0, 23869-2 ####[facility] LABCLIA [id number] [place] [address] Erythrocyte distribution width (RBC) [Ratio] 18.1 % High 11.5-15.0 [facility] Comment on above: Order Comment: Speci men Type: BLOOD SPECIMENOrdering Facility: [facility] Address: [address] [place] [address] Performed By: #### 1 4196-0, 23830-9 ####[facility] LABCLIA [id number] [place] [address] Hematocrit (Bld) [Volume fraction] 32.6 % Low 36.0-46.0 [facility] Comment on above: Order Comment: Speci men Type: BLOOD SPECIMENOrdering Facility: [facility] Address: [address] [place] [address] Performed By: #### 1 4196-0, 64696-1 ####[facility] LABIA [id number] [place] [address] Hemoglobin (Bld) [Mass/Vol] 8.9 g/dL Low 11.5-15.5 [facility] Comment on above: Order Comment: Speci men Type: BLOOD SPECIMENOrdering Facility: [facility] Address: [address] [place] [address] Performed By: #### 1 4196-0, 58057-8 ####[facility] LABIA [id number] [place] [address] IMMATURE GRAN % 0.4 % Normal [facility] Comment on above: Order Comment: Speci men Type: BLOOD SPECIMENOrdering Facility: [facility] Address: [address] [place] [address] Performed By: #### 1 4196-0, 80762-1 ####[facility] LABCLIA [id number] [place] [address] IMMATURE GRAN ABS <0.03 Normal <0.10 [facility] Comment on above: Order Comment: Speci men Type: BLOOD SPECIMENOrdering Facility: [facility] Address: [address] [place] [address] Performed By: #### 1 4196-0, 81487-9 ####[facility] LABCLIA [id number] [place] [address] Lymphocytes (Bld) [#/Vol] 1.07 10*3/uL Normal 1.00-4.00 [facility] Comment on above: Order Comment: Speci men Type: BLOOD SPECIMENOrdering Facility: [facility] Address: [address] [place] [address] Performed By: #### 1 4196-0, 96045-8 ####[facility] LABIA [id number] [place] [address] Lymphocytes/100 WBC (Bld) 21.6 % Normal [facility] Comment on above: Order Comment: Speci men Type: BLOOD SPECIMENOrdering Facility: [facility] Address: [address] [place] [address] Performed By: #### 1 4196-0, 06426-8 ####[facility] LABCLIA [id number] [place] [address] MCH (RBC) [Entitic mass] 19.0 pg Low 26.0-34.0 [facility] Comment on above: Order Comment: Speci men Type: BLOOD SPECIMENOrdering Facility: [facility] Address: [address] [place] [address] Performed By: #### 1 4196-0, 15773-6 ####[facility] LABCLIA [id number] [place] [address] MCHC (RBC) [Mass/Vol] 27.3 g/dL Low 30.5-36.0 [facility] Comment on above: Order Comment: Speci men Type: BLOOD SPECIMENOrdering Facility: [facility] Address: [address] [place] [address] Performed By: #### 1 4196-0, 59783-6 ####[facility] LABCLIA [id number] [place] [address] MCV (RBC) [Entitic vol] 69.7 fL Low 80.0-100.0 [facility] Comment on above: Order Comment: Speci men Type: BLOOD SPECIMENOrdering Facility: [facility] Address: [address] [place], [place] [address] Performed By: #### 1 4196-0, 89620-5 ####[facility] LABCLIA [id number] [place] [address] Monocytes (Bld) [#/Vol] 0.68 10*3/uL Normal <0.87 [facility] Comment on above: Order Comment: Speci men Type: BLOOD SPECIMENOrdering Facility: [facility] Address: [address] [place] [address] Performed By: #### 1 4196-0, 16711-2 ####[facility] LABIA [id number] [place] [address] Monocytes/100 WBC (Bld) 13.7 % Normal [facility] Comment on above: Order Comment: Speci men Type: BLOOD SPECIMENOrdering Facility: [facility] Address: [address] [place], [place] [address] Performed By: #### 1 4196-0, 25103-3 ####[facility] LABIA [id number] [place] [address] Neutrophils (Bld) [#/Vol] 2.94 10*3/uL Normal 1.45-7.50 [facility] Comment on above: Order Comment: Speci men Type: BLOOD SPECIMENOrdering Facility: [facility] Address: [address] [place], [place] [address] Performed By: #### 1 4196-0, 41890-3 ####[facility] LABIA [id number] [place] [address] Neutrophils/100 WBC (Bld) 59.5 % Normal [facility] Comment on above: Order Comment: Speci men Type: BLOOD SPECIMENOrdering Facility: [facility] Address: [address] [place], [place] [address] Performed By: #### 1 4196-0, 02277-3 ####[facility] LABCLIA [id number] [place] [address] Nucleated RBC (Bld) [#/Vol] 10*3/uL Normal <0.01 [facility] Comment on above: Order Comment: Speci men Type: BLOOD SPECIMENOrdering Facility: [facility] Address: [address] [place] [address] Performed By: #### 1 4196-0, 07715-2 ####[facility] LABCLIA [id number] [place] [address] Nucleated RBC/100 WBC (Bld) [Ratio] 0.0 /100 WBC Normal [facility] Comment on above: Order Comment: Speci men Type: BLOOD SPECIMENOrdering Facility: [facility] Address: [address] [place] [address] Performed By: #### 1 4196-0, 06756-6 ####[facility] LABCLIA [id number] [place] [address] Platelet mean volume (Bld) [Entitic vol] 10.4 fL Normal 9.0-12.7 [facility] Comment on above: Order Comment: Speci men Type: BLOOD SPECIMENOrdering Facility: [facility] Address: [address] [place] [address] Performed By: #### 1 4196-0, 34299-4 ####[facility] LABCLIA [id number] [place] [address] Platelets (Bld) [#/Vol] 230 10*3/uL Normal 150-400 [facility] Comment on above: Order Comment: Speci men Type: BLOOD SPECIMENOrdering Facility: [facility] Address: [address] [place] [address] Result Comment: [facility] Performed By: #### 1 4196-0, 00463-7 ####[facility] LABCLIA [id number] [place] [address] RBC (Bld) [#/Vol] 4.68 10*6/uL Normal 3.90-5.20 [facility] Comment on above: Order Comment: Speci men Type: BLOOD SPECIMENOrdering Facility: [facility] Address: [address] [place] [address] Performed By: #### 1 4196-0, 36286-2 ####[facility] LABCLIA [id number] [place] [address] WBC (Bld) [#/Vol] 4.95 10*3/uL Normal 3.70-11.00 [facility] Comment on above: Order Comment: Speci men Type: BLOOD SPECIMENOrdering Facility: [facility] Address: [address] [place] [address] Performed By: #### 1 4196-0, 92706-0 ####[facility] LABCLIA [id number] [place] [address] Abs Immature Gran <0.03 <0.10 k/uL [facility] Basophils (Bld) [#/Vol] 0.06 10*3/uL <0.11 k/uL [facility] Basophils/100 WBC (Bld) 1.2 % [facility] Differential cell count method Nom (Bld) Auto [facility] Eosinophils (Bld) [#/Vol] 0.18 10*3/uL <0.46 k/uL [facility] Eosinophils/100 WBC (Bld) 3.6 % [facility] Erythrocyte distribution width (RBC) [Ratio] 18.1 % High 11.5 - 15.0 % [facility] Hematocrit (Bld) [Volume fraction] 32.6 % Low 36.0 - 46.0 % [facility] ic Hemoglobin (Bld) [Mass/Vol] 8.9 g/dL Low 11.5 - 15.5 g/dL [facility] Immature Gran % 0.4 % [facility] Lymphocytes (Bld) [#/Vol] 1.07 10*3/uL 1.00 - 4.00 k/uL [facility] Lymphocytes/100 WBC (Bld) 21.6 % [facility] MCH (RBC) [Entitic mass] 19.0 pg Low 26.0 - 34.0 pg [facility] MCHC (RBC) [Mass/Vol] 27.3 g/dL Low 30.5 - 36.0 g/dL [facility] MCV (RBC) [Entitic vol] 69.7 fL Low 80.0 - 100.0 fL [facility] Monocytes (Bld) [#/Vol] 0.68 10*3/uL <0.87 k/uL [facility] Monocytes/100 WBC (Bld) 13.7 % [facility] Neutrophils (Bld) [#/Vol] 2.94 10*3/uL 1.45 - 7.50 k/uL [facility] Neutrophils/100 WBC (Bld) 59.5 % [facility] Nucleated RBC (Bld) [#/Vol] 10*3/uL <0.01 k/uL [facility] Nucleated RBC/100 WBC (Bld) [Ratio] 0.0 /100 WBC [facility] Platelet mean volume (Bld) [Entitic vol] 10.4 fL 9.0 - 12.7 fL [facility] Platelets (Bld) [#/Vol] 230 10*3/uL 150 - 400 k/uL [facility] RBC (Bld) [#/Vol] 4.68 10*6/uL 3.90 - 5.2 0 m/uL [facility] WBC (Bld) [#/Vol] 4.95 10*3/uL 3.70 - 11. 00 k/uL [facility] CNOVSPon 06-14-2021 CNOVSP Visit (SP) Office ([facility]) NINA GEORGE ([id number]) 1935 F Date Time Provider Department 06/14/21 11:00 AM KUNTE, BINH HEMASA During your visit today, we recorded the following information about you: Temperature Pulse Respiration Blood pressure 97 degrees 71/minute 16/minute 126/69 Weight Height 48.1 kg 1.511 m Binh Hernandez MD 06/14/2021 12:20 PM Signed HEMATOLOGY INITIAL CONSULTATION June 14, 2021 REFERRAL REQUESTED BY: Erik Zimmerman PCP and other physicians involved in patient's care: Erik Zimmerman (PCP) REASON FOR CONSULTATION: HEMATOLOGICAL HISTORY: ? Patient mentions of being iron deficient in 2019 or 2019 for which she took oral iron for a few months. EGD and colonoscopy at that time (Dr. Hernandez) did not reveal any abnormalities. I do not have these results. ? Patient was referred to me in June 2021 for iron deficiency anemia. This was based on microcytic anemia initially noted in February 2021. Hemoglobin was 10.4 g/dL. MCV was 78 fL and ferritin was 14. This was new since March 2020 when the CBC was normal. HPI: This is an 85-year-old female who comes to the clinic for iron deficiency anemia. Her hematologic history is as above. She comes in with a niece, Dominique. Briefly, patient is a very healthy 85-year-old vegetarian female who is in the clinic for iron deficiency anemia. Per patient, she was iron deficient in either 2018 on 2019. At this time, she had a EGD and colonoscopy by Dr. Hernandez that was normal. I do not have the results of that. She reports no GI or bleeding. She reports no intentional weight loss. No melena. Her CBC from March 2020 is normal. Based on the labs that I have, she was noted to be anemic again in February 2021 with a ferritin of 14. She tried oral iron for 1 month but had significant constipation and GI upset for which she has been referred to our clinic. Currently the patient feels well and denies any symptoms. She has had no GI evaluation since being iron deficient. ROS is negative except that mentioned in HPI PAST MEDICAL SURGICAL FAMILY AND SOCIAL HISTORY: MEDICATIONS AND ALLERGIES: Reviewed PHYSICAL EXAM BP 126/69 Pulse 71 Temp 36.1 ?C (97 ?F) (Temporal) Resp 16 Ht 151.1 cm (4' 11.49 ) Wt 48.1 kg (106 lb) SpO2 90% BMI 21.06 kg/m? Head atraumatic, no pallor, icterus or lymphadenopathy, lungs clear to auscultation, heart sounds regular, abdomen soft without distension or organomegaly, neuro grossly non-focal, skin without rash, extremities without swelling LABORATORY, IMAGING AND PATHOLOGY 04-03-20 hemoglobin 13.7, MCV 88, WBC 5.3 platelets 188 02-21-21 hemoglobin 10.4, MCV 78, WBC 5.9, platelets 258, creatinine 1.16 02-28-21 ferritin 14, iron 19, TIBC 497, saturation 4%, B12 543, MMA 172, folate 28 03-06-21 hemoglobin 9.7, MCV 75, WBC 7.2, platelets 212 Started oral iron in May 2021 05-30-21 hemoglobin 9.1, MCV 70, WBC 5.7, platelets 242 06-14-21 hemoglobin 8.9, MCV 69, WBC 4.9, platelets 230, iron profile in process ASSESSMENT AND RECOMMENDATIONS 85 female with iron deficiency anemia Oral iron has been associated with significant GI upset. I have recommended her a dose of Monoferric to be given end of June 2021. After that, she can stop oral iron and I will see her back for a repeat lab assessment end of July 2021. I have recommended her to see GI for possible scopes and/or capsule endoscopy to identify the source of iron deficiency. Patient is in agreement and referral has been provided. Follow-up in July 2021 with labs. Binh Hernandez MD I spent a total of 55 minutes on the date of the service which included preparing to see the patient, [id number] patient care, completing clinical documentation, obtaining and/or reviewing separately obtained history, performing a medically appropriate examination, counseling and educating the patient/family/caregi corie, ordering medications, tests, or procedures, independently interpreting results (not separately reported) and communicating results to the patient/family/caregi corie. 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 Normal [facility] CNPNon 06-14-2021 CNPN Telephone ([facility]) NINA GEORGE ([id number]) 1935 F Date Time Provider Department 06/14/21 BINH HERNANDEZ [facility] During your visit today, we recorded the following information about you: Lilian Valdez Sec 06/14/2021 12:33 PM Signed Patient is being referred to Gi Dr. Espana. Their office will call the patient to schedule this appt. Jackie, Please fax records to his office. Info has been printed for faxing and is in your mailbox. Thank you Devi Lawrence [facility] 06/14/2021 1:14 PM Signed Records faxed to Dr. Espana. Jovita Ghotra Pss 06/16/2021 2:03 PM Signed Called Luz Marina Ramos spoke with Hiral. She states they have received patient records/referral and have patient scheduled to see Dr Espana on 09/01 @ 1:45. Jovita Ghotra Pss Allergies As of Date: 06/14/2021 Noted Allergy Reaction EYE DROPS RELIEF 11/25/2013 16 - Unknown Comments: Glaucoma eye drops PREDNISONE 11/25/2013 14 - Other: See Comments Comments: Palpitations, sob Date Reviewed: 06/14/2021 Reviewed by: Johnna Alva MA - Fully Assessed Reason for Visit: Future Appointment [256] Prescriptions as of 06/22/2021 - latanoprost (XALATAN) 0.005 % ophthalmic solution INSTILL 1 DROP RIGHT EYE EVERY EVENING - dorzolamide-timolol (COSOPT) 22.3-6.8 mg/mL ophthalmic solution INSTILL ONE DROP TO RIGHT EYE TWICE A DAY - loratadine (CLARITIN ORAL) Take by mouth. - lisinopril (ZESTRIL, PRINIVIL) 5 mg tablet Take 2.5 mg in the morning, take BP at 4p.m., if elevated over 145 mm/Hg systolic, take another 2.5 mg. - ACETAMINOPHEN (TYLENOL 8 HOUR ORAL) Take by mouth as needed. - aspirin, enteric coated (ASPIRIN, ENTERIC COATED) 81 mg EC tablet Take 81 mg by mouth once daily. - omeprazole (PRILOSEC) 20 mg capsule Take 20 mg by mouth once daily. - ALPRAZolam (XANAX) 0.25 mg tablet Take 0.25 mg by mouth three times daily as needed. 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 HTN (hypertension) [I10] 05/29/2014 Palpitations [R00.2] 05/25/2015 Precordial pain [R07.2] 06/10/2015 Iron deficiency anemia due to chronic blood los*06/14/2021 Encounter Status:Closed by LILIAN ROGERS on 06/22/21 Normal [facility] Comprehensive metabolic 2000 panelon 06-14-2021 Albumin [Mass/Vol] 4.6 g/dL Normal 3.9-4.9 [facility] Comment on above: Order Comment: Speci men Type: BLOOD SPECIMENOrdering Facility: [facility] Address: [address] [place] [address] Performed By: #### 2 4323-8 ####[facility] LABCLIA [id number] [place] [address] ALP [Catalytic activity/Vol] 42 U/L Normal 34-123 [facility] Comment on above: Order Comment: Speci men Type: BLOOD SPECIMENOrdering Facility: [facility] Address: [address] [place] [address] Performed By: #### 2 4323-8 ####[facility] LABCLIA [id number] [place] [address] ALT [Catalytic activity/Vol] 12 U/L Normal 7-38 [facility] Comment on above: Order Comment: Speci men Type: BLOOD SPECIMENOrdering Facility: [facility] Address: [address] [place] [address] Performed By: #### 2 4323-8 ####[facility] LABCLIA [id number] [place] [address] Anion gap [Moles/Vol] 8 mmol/L Low 9-18 [facility] Comment on above: Order Comment: Speci men Type: BLOOD SPECIMENOrdering Facility: [facility] Address: [address] [place] [address] Performed By: #### 2 4323-8 ####[facility] LABCLIA [id number] [place] [address] AST [Catalytic activity/Vol] 24 U/L Normal 13-35 [facility] Comment on above: Order Comment: Speci men Type: BLOOD SPECIMENOrdering Facility: [facility] Address: [address] [place] [address] Performed By: #### 2 4323-8 ####[facility] LABCLIA [id number] [place] [address] Bilirubin [Mass/Vol] 0.3 mg/dL Normal 0.2-1.3 [facility] Comment on above: Order Comment: Speci men Type: BLOOD SPECIMENOrdering Facility: [facility] Address: [address] [place] [address] Performed By: #### 2 4323-8 ####[facility] LABCLIA [id number] [place] [address] Calcium [Mass/Vol] 9.5 mg/dL Normal 8.5-10.2 [facility] Comment on above: Order Comment: Speci men Type: BLOOD SPECIMENOrdering Facility: [facility] Address: [address] [place] [address] Performed By: #### 2 4323-8 ####[facility] LABCLIA [id number] [place] [address] Chloride [Moles/Vol] 102 mmol/L Normal 97-105 [facility] Comment on above: Order Comment: Speci men Type: BLOOD SPECIMENOrdering Facility: [facility] Address: [address] [place] [address] Performed By: #### 2 4323-8 ####[facility] LABCLIA [id number] [place] [address] CO2 [Moles/Vol] 26 mmol/L Normal 22-30 [facility] Comment on above: Order Comment: Speci men Type: BLOOD SPECIMENOrdering Facility: [facility] Address: [address] [place] [address] Performed By: #### 2 4323-8 ####[facility] LABCLIA [id number] [place] [address] Creatinine [Mass/Vol] 0.98 mg/dL High 0.58-0.96 [facility] Comment on above: Order Comment: Speci men Type: BLOOD SPECIMENOrdering Facility: [facility] Address: [address] [place], [place] [address] Performed By: #### 2 4323-8 ####[facility] LABCLIA [id number] [place] [address] ESTIMATED GLOMERULAR FILTRATION RATE 56 mL/min/1.73m??? Low >=60 [facility] Comment on above: Order Comment: Speci men Type: BLOOD SPECIMENOrdering Facility: [facility] Address: [address] [place], [place] [address] Result Comment: Kala mated Glomerular Filtration Rate (eGFR) is calculated using the 2020 CKD-EPI creatinine equation. This equation utilizes serum creatinine, sex, and age as parameters. The creatinine assay has traceable calibration to isotope dilution-mass spectrometry. Refer to KDIGO guidelines for clinical interpretation. In patients with unstable renal function, e.g. those with acute kidney injury, the eGFR may not accurately reflect actual GFR. Performed By: #### 2 4323-8 ####[facility] LABCLIA [id number] [place] [address] Glucose [Mass/Vol] 86 mg/dL Normal 74-99 [facility] Comment on above: Order Comment: Nesha parikh Type: BLOOD SPECIMENOrdering Facility: [facility] Address: [address] [place] [id number] Result Comment: The [place] Diabetes Association (ADA) provides guidance for cutoff values for fasting glucose and random glucose. The ADA defines fasting as no caloric intake for at least 8 hours. Fasting plasma glucose results between 100 to 125 mg/dL indicate increased risk for diabetes (prediabetes). Fasting plasma glucose results greater than or equal to 126 mg/dL meet the criteria for diagnosis of diabetes. In the absence of unequivocal hyperglycemia, results should be confirmed by repeat testing. In a patient with classic symptoms of hyperglycemia or hyperglycemic crisis, random plasma glucose results greater than or equal to 200 mg/dL meet the criteria for diagnosis of diabetes. Reference: Standards of Medical Care in Diabetes 2016, [place] [employer] Association. Diabetes Care. 2016.39(Suppl 1). Performed By: #### 2 4323-8 ####[facility] LABCLIA [id number] [place] [address] Potassium [Moles/Vol] 4.4 mmol/L Normal 3.7-5.1 [facility] Comment on above: Order Comment: Nesha parikh Type: BLOOD SPECIMENOrdering Facility: [facility] Address: [address] [place] [address] Performed By: #### 2 4323-8 ####[facility] LABCLIA [id number] [place] [address] Protein [Mass/Vol] 6.9 g/dL Normal 6.3-8.0 [facility] Comment on above: Order Comment: Speci men Type: BLOOD SPECIMENOrdering Facility: [facility] Address: [address] [place] [address] Performed By: #### 2 4323-8 ####[facility] LABCLIA [id number] [place] [address] Sodium [Moles/Vol] 136 mmol/L Normal 136-144 [facility] Comment on above: Order Comment: Speci men Type: BLOOD SPECIMENOrdering Facility: [facility] Address: [address] [place] [address] Performed By: #### 2 4323-8 ####[facility] LABCLIA [id number] [place] [address] Urea nitrogen [Mass/Vol] 18 mg/dL Normal 7-21 [facility] Comment on above: Order Comment: Speci men Type: BLOOD SPECIMENOrdering Facility: [facility] Address: [address] [place] [address] Performed By: #### 2 4323-8 ####[facility] LABCLIA [id number] [place] [address] Albumin [Mass/Vol] 4.6 g/dL 3.9 - 4.9 g/dL [facility] ALP [Catalytic activity/Vol] 42 U/L 34 - 123 U/L [facility] ALT [Catalytic activity/Vol] 12 U/L 7 - 38 U/L [facility] Anion gap [Moles/Vol] 8 mmol/L Low 9 - 18 mmol/L [facility] AST [Catalytic activity/Vol] 24 U/L 13 - 35 U/L [facility] Bilirubin [Mass/Vol] 0.3 mg/dL 0.2 - 1.3 mg/dL [facility] Calcium [Mass/Vol] 9.5 mg/dL 8.5 - 10. 2 mg/dL [facility] Chloride [Moles/Vol] 102 mmol/L 97 - 105 mmol/L [facility] CO2 [Moles/Vol] 26 mmol/L 22 - 30 mmol/L [facility] Creatinine [Mass/Vol] 0.98 mg/dL High 0.58 - 0.96 mg/dL [facility] Estimated Glomerular Filtration Rate 56 mL/min/1.73m Low >=60 mL/min/1.73m [facility] Glucose [Mass/Vol] 86 mg/dL 74 - 99 mg/dL [facility] Potassium [Moles/Vol] 4.4 mmol/L 3.7 - 5.1 mmol/L [facility] Protein [Mass/Vol] 6.9 g/dL 6.3 - 8.0 g/dL [facility] Sodium [Moles/Vol] 136 mmol/L 136 - 144 mmol/L [facility] Urea nitrogen [Mass/Vol] 18 mg/dL 7 - 21 mg/dL [facility] FERRITIN BLDon 06-14-2021 Ferritin [Mass/Vol] 14.3 ng/mL Low 14.7-205.1 [facility] Comment on above: Order Comment: Speci men Type: BLOOD SPECIMENOrdering Facility: [facility] Address: [address] [place] [address] Performed By: #### F ERR, IRON ####[facility] LABIA [id number] [place] [address] [place] IRON + TIBCon 06-14-2021 Iron [Mass/Vol] 16 ug/dL Low 41-186 [facility] Comment on above: Order Comment: Speci men Type: BLOOD SPECIMENOrdering Facility: [facility] Address: [address] [place] [address] Performed By: #### F ERR, IRON ####[facility] LABCLIA [id number] [place] [address] [place] Iron binding capacity [Mass/Vol] 438 ug/dL High 232-386 [facility] Comment on above: Order Comment: Speci men Type: BLOOD SPECIMENOrdering Facility: [facility] Address: [address] [place] [address] Performed By: #### F ERR, IRON ####[facility] LABCLIA [id number] [address] [place] Iron/TIBC [Molar ratio] 4 % Low 15-57 [facility] Comment on above: Order Comment: Speci men Type: BLOOD SPECIMENOrdering Facility: [facility] Address: [address] [place] [address] Performed By: #### F ERR, IRON ####[facility] LABCLIA [id number] [place] [address] [place] RETIC COUNTon 06-14-2021 Reticulocytes (Bld) [#/Vol] 0.45856 10*3/uL 0.018 - 0.100 M/uL [facility] Retics #on 06-14-2021 Reticulocytes (Bld) [#/Vol] 0.24419 10*3/uL Normal 0.018-0.100 [facility] Comment on above: Order Comment: Speci men Type: BLOOD SPECIMENOrdering Facility: [facility] Address: [address] [place] [address] Performed By: #### 1 4196-0, 51503-5 ####[facility] LABCLIA [id number] [place] [address] Reticulocytes (Bld) [#/Vol]o n 06-14-2021 Reticulocytes/100 RBC (Bld) 1.3 % Normal 0.4-2.0 [facility] Comment on above: Order Comment: Speci men Type: BLOOD SPECIMENOrdering Facility: [facility] Address: [address] [place] [address] Performed By: #### 1 4196-0, 90099-6 ####[facility] LABCLIA [id number] [place] [address] Reticulocytes/100 RBC (Bld) 1.3 % 0.4 - 2.0 % [facility] Vital Signs Date Time Vital Sign Value Performing Clinician Facility 02-19-2023 13:30-0500 Body height 140.97 cm Erik Ball Other [facility] Other 02-19-2023 13:30-0500 Body mass index (BMI) [Ratio] 23.42 kg/m2 Erik Ball Other [facility] Other 02-19-2023 13:30-0500 Body weight 46.54 kg Erik Ball Other [facility] Other 02-19-2023 13:30-0500 Diastolic blood pressure 84 mm[Hg] Erik Ball Other [facility] Other 02-19-2023 13:30-0500 Respiratory rate 12 /min Erik Ball Other [facility] Other 02-19-2023 13:30-0500 Systolic blood pressure 130 mm[Hg] Erik Ball Other [facility] Other 01-31-2023 14:15-0500 Body height 140.97 cm Erik Ball Other [facility] Other 01-31-2023 14:15-0500 Body mass index (BMI) [Ratio] 23.14 kg/m2 Erik Ball Other [facility] Other 01-31-2023 14:15-0500 Body weight 46 kg Erik Ball Other [facility] Other 01-31-2023 14:15-0500 Diastolic blood pressure 92 mm[Hg] Erik Ball Other [facility] Other 01-31-2023 14:15-0500 Respiratory rate 12 /min Erik Ball Other [facility] Other 01-31-2023 14:15-0500 Systolic blood pressure 150 mm[Hg] Erik Ball Other [facility] Other 10-30-2022 14:30-0400 Body height 140.97 cm Erik Ball Other [facility] Other 10-30-2022 14:30-0400 Body mass index (BMI) [Ratio] 23.64 kg/m2 Erik Ball Other [facility] Other 10-30-2022 14:30-0400 Body weight 46.99 kg Erik Ball Other [facility] Other 10-30-2022 14:30-0400 Diastolic blood pressure 77 mm[Hg] Erik Ball Other [facility] Other 10-30-2022 14:30-0400 Respiratory rate 12 /min Erik Ball Other [facility] Other 10-30-2022 14:30-0400 Systolic blood pressure 122 mm[Hg] Erik Ball Other [facility] Other 08-30-2022 11:45-0400 Body height 140.97 cm Erik Ball Other [facility] Other 08-30-2022 11:45-0400 Body mass index (BMI) [Ratio] 22.91 kg/m2 Erik Ball Other [facility] Other 08-30-2022 11:45-0400 Body weight 45.54 kg Erik Ball Other [facility] Other 08-30-2022 11:45-0400 Diastolic blood pressure 88 mm[Hg] Erik Ball Other [facility] Other 08-30-2022 11:45-0400 Respiratory rate 12 /min Erik Ball Other [facility] Other 08-30-2022 11:45-0400 Systolic blood pressure 135 mm[Hg] Erik Ball Other [facility] Other 05-12-2022 13:30-0500 Body height 140.97 cm Erik Ball Other [facility] Other 05-12-2022 13:30-0500 Body mass index (BMI) [Ratio] 23.96 kg/m2 Erik Ball Other [facility] Other 05-12-2022 13:30-0500 Body weight 47.63 kg Erik Ball Other [facility] Other 05-12-2022 13:30-0500 Diastolic blood pressure 73 mm[Hg] Erik Ball Other [facility] Other 05-12-2022 13:30-0500 Systolic blood pressure 132 mm[Hg] Erik Ball Other [facility] Other 11-16-2021 10:58-0400 Body height 151.1 cm Fiorella Lisa PA-C Work Phone: [facility] 11-16-2021 10:58-0400 Body temperature 97.81 [degF] Fiorella Lisa PA-C Work Phone: [facility] 11-16-2021 10:58-0400 Body weight 48.99 kg Fiorella Lisa PA-C Work Phone: [facility] 11-16-2021 10:58-0400 Diastolic blood pressure 86 mm[Hg] Fiorella Lisa PA-C Work Phone: [facility] 11-16-2021 10:58-0400 Heart rate 74 /min Fiorella Lisa PA-C Work Phone: [facility] 11-16-2021 10:58-0400 Respiratory rate 16 /min Fiorella Lisa PA-C Work Phone: [facility] 11-16-2021 10:58-0400 SaO2% (BldA) [Mass fraction] 99 % Fiorella Lisa PA-C Work Phone: [facility] 11-16-2021 10:58-0400 Systolic blood pressure 143 mm[Hg] Fiorella Lisa PA-C Work Phone: [facility] 09-26-2021 13:25-0400 Body height 151.1 cm Binh Hernandez MD Work Phone: [facility] 09-26-2021 13:25-0400 Body temperature 97.9 [degF] Binh Hernandez MD Work Phone: [facility] 09-26-2021 13:25-0400 Body weight 49.44 kg Binh Hernandez MD Work Phone: [facility] 09-26-2021 13:25-0400 Diastolic blood pressure 65 mm[Hg] Binh Hernandez MD Work Phone: [facility] 09-26-2021 13:25-0400 Heart rate 64 /min Binh Hernandez MD Work Phone: [facility] 09-26-2021 13:25-0400 Respiratory rate 16 /min Binh Hernandez MD Work Phone: [facility] 09-26-2021 13:25-0400 SaO2% (BldA) [Mass fraction] 99 % Binh Hernandez MD Work Phone: [facility] 09-26-2021 13:25-0400 Systolic blood pressure 134 mm[Hg] Binh Hernandez MD Work Phone: [facility] 08-22-2021 11:00-0400 Body temperature 96.69 [degF] Chair Dolan Work Phone: [facility] 08-22-2021 11:00-0400 Diastolic blood pressure 58 mm[Hg] Chair Samuel Work Phone: [facility] 08-22-2021 11:00-0400 Heart rate 70 /min Chair Samuel Work Phone: [facility] 08-22-2021 11:00-0400 Respiratory rate 18 /min Chair Stephens Work Phone: [facility] 08-22-2021 11:00-0400 SaO2% (BldA) [Mass fraction] 98 % Chair Samuel Work Phone: [facility] 08-22-2021 11:00-0400 Systolic blood pressure 116 mm[Hg] Chair Stephens Work Phone: [facility] 08-08-2021 13:29-0400 Diastolic blood pressure 75 mm[Hg] Chair Samuel Work Phone: [facility] 08-08-2021 13:29-0400 Heart rate 69 /min Chair Samuel Work Phone: [facility] 08-08-2021 13:29-0400 Respiratory rate 18 /min Chair Stephens Work Phone: [facility] 08-08-2021 13:29-0400 SaO2% (BldA) [Mass fraction] 98 % Chair Stephens Work Phone: [facility] 08-08-2021 13:29-0400 Systolic blood pressure 120 mm[Hg] Chair Samuel Work Phone: [facility] 08-08-2021 11:00-0400 Body temperature 97.5 [degF] Chair Stephens Work Phone: [facility] 07-26-2021 12:59-0400 Body height 151.1 cm Binh Hernandez MD Work Phone: [facility] 07-26-2021 12:59-0400 Body temperature 97.3 [degF] Binh Hernandez MD Work Phone: [facility] 07-26-2021 12:59-0400 Body weight 49.35 kg Binh Hernandez MD Work Phone: [facility] 07-26-2021 12:59-0400 Diastolic blood pressure 82 mm[Hg] Binh Hernandez MD Work Phone: [facility] 07-26-2021 12:59-0400 Heart rate 64 /min Binh Hernandez MD Work Phone: [facility] 07-26-2021 12:59-0400 Respiratory rate 16 /min Binh Hernandez MD Work Phone: [facility] 07-26-2021 12:59-0400 SaO2% (BldA) [Mass fraction] 99 % Binh Hernandez MD Work Phone: [facility] 07-26-2021 12:59-0400 Systolic blood pressure 113 mm[Hg] Binh Hernandez MD Work Phone: [facility] 06-14-2021 11:22-0400 Body height 151.1 cm Binh Hernandez MD Work Phone: [facility] 06-14-2021 11:22-0400 Body temperature 97 [degF] Binh Hernandez MD Work Phone: [facility] 06-14-2021 11:22-0400 Body weight 48.08 kg Binh Hernandez MD Work Phone: [facility] 06-14-2021 11:22-0400 Diastolic blood pressure 69 mm[Hg] Binh Hernandez MD Work Phone: [facility] 06-14-2021 11:22-0400 Heart rate 71 /min Binh Hernandez MD Work Phone: [facility] 06-14-2021 11:22-0400 Respiratory rate 16 /min Binh Hernandez MD Work Phone: [facility] 06-14-2021 11:22-0400 SaO2% (BldA) [Mass fraction] 90 % Binh Hernandez MD Work Phone: [facility] 06-14-2021 11:040 Systolic blood pressure 126 mm[Hg] Binh Hernandez MD Work Phone: [facility] Encounters Encounter Date Encounter Type Care Provider Facility Start: 03-28-2023 End: 03-28-2023 ambulatory Erik Zimmerman Other [facility] Other Start: 03-28-2023 Telephone encounter Erik Zimmerman [facility] Start: 02-21-2023 End: 02-21-2023 ambulatory Erik Zimmerman Other [facility] Other Start: 02-21-2023 Telephone encounter Erik Zimmerman [facility] Start: 02-19-2023 End: 02-19-2023 ambulatory Erik Zimmerman Other [facility] Other Start: 02-19-2023 Patient encounter procedure Erik Zimmerman [facility] Start: 02-02-2023 End: 02-02-2023 ambulatory Erik Zimmerman Other [facility] Other Start: 02-02-2023 Telephone encounter Erik Zimmerman [facility] Start: 01-31-2023 End: 01-31-2023 ambulatory Erik Zimmerman Other [facility] Other Start: 01-31-2023 Office outpatient vi sit 15 minutes Erik Zimmerman [facility] Start: 01-31-2023 Telephone encounter Erik Ball [facility] Start: 10-31-2022 End: 10-31-2022 ambulatory Erik Zimmerman Other [facility] Other Start: 10-31-2022 Telephone encounter Erik Zimmerman [facility] Start: 10-30-2022 End: 10-30-2022 ambulatory Erik Zimmerman Other [facility] Other Start: 10-30-2022 Office outpatient vi sit 15 minutes Erik Ball [facility] Start: 09-13-2022 End: 09-13-2022 ambulatory Erik Zimmerman Other [facility] Other Start: 09-13-2022 Telephone encounter Erik Zimmerman [facility] Start: 08-30-2022 End: 08-30-2022 ambulatory Erik Zimmerman Other [facility] Other Start: 08-30-2022 Office outpatient vi sit 25 minutes Erik Zimmerman [facility] Start: 08-14-2022 End: 08-15-2022 ambulatory Trudy Bridges MD Facility:[facility] Start: 08-08-[address] ERIK ZIMMERMAN Facili ty:[facility] Start: 07-21-2022 End: 07-22-[address] ERIK ZIMMERMAN Facility:[facility] Start: 06-28-2022 End: 06-28-2022 ambulatory Erik Zimmerman Other [facility] Other Start: 06-28-2022 Telephone encounter Erik Zimmerman [facility] Start: 05-17-2022 End: 05-17-2022 ambulatory Erik Zimmerman Other [facility] Other Start: 05-17-2022 Telephone encounter Erik Zimmerman [facility] Start: 05-16-2022 End: 05-17-[address] ERIK ZIMMERMAN Facility:[facility] Start: 05-12-2022 End: 05-12-2022 ambulatory Erik Zimmerman Other [facility] Other Start: 05-12-2022 Office outpatient vi sit 15 minutes Erik Zimmerman [facility] Start: 03-31-2022 End: 03-31-2022 ambulatory Erik Zimmerman Other [facility] Other Start: 03-31-2022 Telephone encounter Erik Zimmerman [facility] Start: 03-20-2022 End: 03-20-[address] ERIK ZIMMERMAN Facility:[facility] Start: 03-06-2022 End: 03-07-[address] ERIK ZIMMERMAN Facility:[facility] Start: 11-17-2021 Telephone encounter Jewel Alvarez Hematology/Oncology Comment on above: Results Start: 11-16-2021 Telephone encounter Fiorella Poole Kirill villanueva PA-C Work Phone: Hematology/Oncology Comment on above: Results Start: 11-16-2021 End: 11-16-2021 ambulatory Fiorella Poole Lisa PA-C Work Phone: Hematology/Oncology Comment on above: 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) Start: 11-16-2021 End: 11-16-2021 Patient encounter procedure Fiorella Gonzalez PA-C Work Phone: [facility] Start: 10-25-2021 End: 10-26-[address] ERIK ZIMMERMAN Facility:[facility] Start: 10-04-2021 End: 10-04-[address] ERIK ZIMMERMAN Facility:[facility] Start: 09-26-2021 End: 09-26-2021 ambulatory Binh Hernandez MD Work Phone: Hematology/Oncology Comment on above: 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) Start: 09-26-2021 End: 09-26-2021 Patient encounter procedure Binh Hernandez MD Work Phone: [facility] Start: 09-20-2021 End: 09-21-[address] ERIK ZIMMERMAN Facility:[facility] Start: 09-02-2021 End: 09-02-[address] Elian ESPANA Facility:[facility] Start: 08-22-2021 End: 08-22-2021 ambulatory Chair 17 Stephens Work Phone: Hematology/Oncology Comment on above: 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) Start: 08-08-2021 End: 08-08-2021 ambulatory Chair 18 Stephens Work Phone: Hematology/Oncology Comment on above: 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) Start: 08-04-2021 End: 08-05-[address] ERIK ZIMMERMAN Facility:[facility] Start: 07-26-2021 End: 07-26-2021 ambulatory Binh Hernandez MD Work Phone: Hematology/Oncology Comment on above: 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) Start: 07-26-2021 End: 07-26-2021 Patient encounter procedure Binh Hernandez MD Work Phone: [facility] Start: 07-18-2021 Telephone encounter Charisma Henderson RN Hematology/Oncology Comment on above: Results; Appointment Start: 07-12-2021 End: 07-13-[address] ERIK ZIMMERMAN Facility: Start: 06-29-2021 End: 06-29-2021 ambulatory ERIK ZIMMERMAN Facility:[facility] Start: 06-24-2021 Telephone encounter Charisma Henderson RN Hematology/Oncology Comment on above: Appointment Start: 06-16-2021 Telephone encounter Dary Wayne [facility] Work Phone: [facility] HB[facility] Comment on above: Medication Follow-up (Monoferric not covered - switched plan to Venfoer 300mg x3 weekly doses) Start: 06-14-2021 Telephone encounter Binh Hernandez MD Work Phone: [facility] Comment on above: Future Appointment Start: 06-14-2021 End: 06-14-2021 ambulatory Binh Hernandez MD Work Phone: Hematology/Oncology Comment on above: 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) Start: 06-14-2021 End: 06-14-2021 Patient encounter procedure Binh Hernandez MD Work Phone: [facility] Plan of Treatment Date Care Activity Detail Author Start: 11-16-2024 DIABETES SCREEN [facility] Start: 06-14-2024 DIABETES SCREEN [facility] Start: 11-16-2021 End: 01-16-2022 Ferritin [Mass/volume] in Serum or Plasma [facility] Work Phone: Comment on above: Expected: 11/16/2021 , Expires: 01/16/2022 Start: 11-16-2021 End: 01-16-2022 Iron and Iron binding capacity panel - Serum or Plasma [facility] Work Phone: Comment on above: Expected: 11/16/2021 , Expires: 01/16/2022 Start: 11-07-2021 End: 01-07-2022 CBC W Auto Differential panel - Blood CBC + DIFF Lab Routine Iron deficiency anemia due to chronic blood loss Expected: 11/07/2021 (Approximate), Expires: 01/07/2022 [facility] Work Phone: Comment on above: Expected: 11/07/2021 (Approximate), Expires: 01/07/2022 Start: 11-07-2021 End: 01-07-2022 Ferritin [Mass/volume] in Serum or Plasma FERRITIN BLD Lab Routine Iron deficiency anemia due to chronic blood loss Expected: 11/07/2021 (Approximate), Expires: 01/07/2022 [facility] Work Phone: Comment on above: Expected: 11/07/2021 (Approximate), Expires: 01/07/2022 Start: 11-07-2021 End: 01-07-2022 Iron and Iron binding capacity panel - Serum or Plasma IRON + TIBC Lab Routine Iron deficiency anemia due to chronic blood loss Expected: 11/07/2021 (Approximate), Expires: 01/07/2022 [facility] Work Phone: Comment on above: Expected: 11/07/2021 (Approximate), Expires: 01/07/2022 Start: 11-03-2021 Influenza vaccination INFLUENZA (#1) [facility] Start: 09-26-2021 End: 11-26-2021 Ferritin [Mass/volume] in Serum or Plasma [facility] Work Phone: Comment on above: Expected: 09/26/2021 , Expires: 11/26/2021 Start: 09-26-2021 End: 11-26-2021 Iron and Iron binding capacity panel - Serum or Plasma [facility] Work Phone: Comment on above: Expected: 09/26/2021 , Expires: 11/26/2021 Start: 07-26-2021 End: 09-25-2021 CBC W Auto Differential panel - Blood CBC + DIFF Lab Routine Iron deficiency anemia due to chronic blood loss Expected: 07/26/2021 (Approximate), Expires: 09/25/2021 [facility] Work Phone: Comment on above: Expected: 07/26/2021 (Approximate), Expires: 09/25/2021 Start: 07-26-2021 End: 09-25-2021 FERRITIN BLD FERRITIN BLD Lab Routine Iron deficiency anemia due to chronic blood loss Expected: 07/26/2021 (Approximate), Expires: 09/25/2021 [facility] Work Phone: Comment on above: Expected: 07/26/2021 (Approximate), Expires: 09/25/2021 Start: 07-26-2021 End: 09-25-2021 IRON + TIBC IRON + TIBC Lab Routine Iron deficiency anemia due to chronic blood loss Expected: 07/26/2021 (Approximate), Expires: 09/25/2021 [facility] Work Phone: Comment on above: Expected: 07/26/2021 (Approximate), Expires: 09/25/2021 Start: 06-13-2021 End: 08-13-2021 FERRITIN BLD FERRITIN BLD Lab Routine Iron deficiency anemia due to chronic blood loss Expected: 06/13/2021, Expires: 08/13/2021 [facility] Work Phone: Comment on above: Expected: 06/13/2021 , Expires: 08/13/2021 Start: 06-13-2021 End: 08-13-2021 IRON + TIBC IRON + TIBC Lab Routine Iron deficiency anemia due to chronic blood loss Expected: 06/13/2021, Expires: 08/13/2021 [facility] Work Phone: Comment on above: Expected: 06/13/2021 , Expires: 08/13/2021 Start: 03-05-2021 ADVANCE DIRECTIVE DISCUSSION [employer] DIRECTIVE DISCUSSION [facility] Start: 1998 BONE DENSITY BONE DENSITY [facility] Start: 1998 PNEUMOCOCCAL: 65+ (1 - PCV) PNEUMOCOCCAL: 65+ (1 - PCV) [facility] Start: 1998 PNEUMOVAX AGE 65 AND OVER WITH 5YR LOOKBACK (#1) PNEUMOVAX AGE 65 AND OVER WITH 5YR LOOKBACK (#1) [facility] Start: 11-19-1983 SHINGRIX VACCINE (1 of 2) SHINGRIX VACCINE (1 of 2) [facility] Start: 1952 Urine microalbumin profile DTAP,TDAP,TD (1 - Tdap) [facility] FERRITIN BLD FERRITIN BLD Lab Routine Iron deficiency anemia due to chronic blood loss 06/14/2021 11:00 AM T [facility] Work Phone: IRON + TIBC IRON + TIBC Lab Routine Iron deficiency anemia due to chronic blood loss 06/14/2021 11:00 AM EDT [facility] Work Phone: [facility] Immunizations Immunization Date Immunization Notes Care Provider Fa [facility] 11-25-2022 influenza, high dose seasonal, preservative-free Erik Zimmerman Other [employer] [facility] [employer] Other 08-31-2021 Prevnar 20 Erik Zimmerman Other [employer] [facility] [employer] Other 06-27-2021 COVID-19 vaccine, ag e 12+ yr ([employer] [facility]) Binh Hernandez MD Work Phone: [facility] 12-04-2020 influenza virus vaccine, split virus (incl. purified surface antigen) Erik Zimmerman Other [employer] [facility] [employer] Other 12-04-2020 Seasonal trivalent influenza vaccine, adjuvanted, preservative free Binh Hernandez MD Work Phone: [facility] 11-29-2020 COVID-19 vaccine, ag e 12+ yr ([employer] - PURPLE TOP) Binh Hernandez MD Work Phone: [facility] 04-24-2020 COVID-19 vaccine, ag e 12+ yr (P[employer]ZER-[employer] - PURPLE [facility]) Binh Hernandez MD Work Phone: [facility] 04-03-2020 COVID-19 vaccine, ag e 12+ yr (PFIZER-[employer] - PURPLE [facility]) Binh Hernandez MD Work Phone: [facility] 11-24-2019 influenza virus vaccine, split virus (incl. purified surface antigen) Erik Zimmerman Other [facility] [employer] Other 11-24-2019 Seasonal trivalent influenza vaccine, adjuvanted, preservative free Binh Hernandez MD Work Phone: [facility] 01-14-2019 influenza virus vaccine, split virus (incl. purified surface antigen) Erik Zimmerman Other [facility] [employer] Other 12-25-2017 Seasonal trivalent influenza vaccine, adjuvanted, preservative free Binh Hernandez MD Work Phone: [facility] 12-12-2017 influenza virus vaccine, split virus (incl. purified surface antigen) Erik Zimmerman Other [facility] [employer] Other 12-22-2016 influenza virus vaccine, split virus (incl. purified surface antigen) Erik Zimmerman Other [employer] Other 12-22-2016 influenza, high dose seasonal, preservative-free Binh Hernandez MD Work Phone: [facility] 12-13-2015 influenza virus vaccine, split virus (incl. purified surface antigen) Erik Zimmerman Other [employer] Other 12-13-2015 influenza, high dose seasonal, preservative-free Binh Hernandez MD Work Phone: [facility] 01-04-2015 pneumococcal conjuga te vaccine, 13 valent Erik Zimmerman Other [employer] Other 12-03-2014 influenza virus vaccine, split virus (incl. purified surface antigen) Erik Zimmerman Other [employer] Other 12-10-2013 tetanus and diphther ia toxoids, adsorbed, preservative free, for adult use (5 Lf of tetanus toxoid and 2 Lf of diphtheria toxoid) Erik Zimmerman Other [employer] Other 12-26-2012 influenza, seasonal, injectable Binh Hernandez MD Work Phone: [facility] 12-17-2012 tetanus and diphther ia toxoids, adsorbed, preservative free, for adult use (5 Lf of tetanus toxoid and 2 Lf of diphtheria toxoid) Erik Zimmerman Other [employer] Other Payers Date Payer Category Payer Private Health Insurance AETNA A ETNA MEDICARE SUPPLEMENT [id number] 2019-Present [phone] [address] [address] [place] [address] Indemnity [id number] 2019 Private Health Insurance [id number] 1998 Medicare MEDICARE MEDICAR E A AND B [id number] 1998-Present [phone] [address] [address] [place] [address] Medicare [id number] 1998 Medicare [id number] 1959 Medicare [id number] 1959 Medicare [id number] 1933 Unknown [id number]. 2.593 1933 Unknown [id number] [id number]. 2.593 1933 Unknown [id number] 2.16.840.1.038229.3.579. 2.593 1933 Unknown [id number] 2.16.840.1.420779.3.579. 2.593 1933 Unknown [id number] 2.16.840.1.960438.3.579. 2.593 1933 Unknown [id number] 2.16.840.1.621378.3.579. 2.593 1933 Unknown [id number] 2.16.840.1.348888.3.579. 2.593 1933 Unknown [id number] 2.16.840.1.379440.3.579. 2.593 1933 Unknown [id number] 2.16.840.1.139956.3.579. 2.593 1933 Unknown [id number] 2.16.840.1.489194.3.579. 2.593 1933 Unknown [id number] 2.16.840.1.740842.3.579. 2.593 1933 Unknown [id number] 2.16.840.1.644422.3.579. 2.196 1933 Unknown [id number] 2.16.840.1.736588.3.579. 2.196 Unknown [id number] Social History Date Type Detail Facility Start: 11-25-2013 End: 11-16-2021 Tobacco smoking status NDIS Never smoked tobacco [facility] Start: 06-14-2021 End: 11-16-2021 Alcohol intake Current drinker of alcohol (finding) [facility] Start: 11-25-2013 History SDOH Alcohol Comment wine daily [facility] Start: 1935 Sex Assigned At Not on file [facility] Start: 06-04-2021 End: 11-16-2021 Exposure to SARS-CoV-2 (event) Not sure [facility] Start: 11-16-2021 Tobacco use and exposure Smokeless tobacco non-user [facility] Sex Assigned At Sex Assigned At [facility] th [employer] [facility] [employer] Other Clinical Notes 06-14-2021 to 03-28-2023 Note Date & Type Note Facility 03-28-2023 Evaluation note Encounter Date Diagnosis Assessment Notes Mar, Vitamin D deficiency (ICD-10 - E55.9) Mar, Age-related osteoporosis with current pathological fracture with routine healing, subsequent encounter (ICD-10 - M80.00XD) [place] [employer] Other [id number] Evaluation note* Encounter Date Diagnosis Assessment Notes Treatment Notes Treatment Clinical Notes Feb, Medicare annual wellness visit, subsequent (ICD-10 - Z00.00) Personalized health advice was given to the beneficiary including a written plan for screenings discussed and provided. Advanced care planning reviewed and/or information given as requested. Additional counseling was provided here today in regards to, [ ]. The above visit was performed by [ ], under direct supervision of [ ]. Document reviewed and amended by provider signed below. Feb, Primary hypertension (ICD-10 - I10) This patient is instructed to consume a healthy, low-fat, low-salt diet. They are also encouraged to continue exercise to achieve/maintain a normal BMI. Feb, Closed fracture of one rib of right side with routine healing, subsequent encounter (ICD-10 - S22.31XD) 5th Pain tolerable Continue Ca and Vit D supplements. Continue Tylenol and Aleve Activit as tolerated Feb, Kyphoscoliosis deformity of spine (ICD-10 - M41.9) Keep active Fall precautions. Stretching exercises Feb, GERD (gastroesophageal reflux disease) (ICD-10 - K21.9) Avoid lying flat after eating. Avoid eating 2 hours prior to bedtime. Smaller, frequent meals may be better tolerated.Weight loss if overweight.PPI with any heartburn.Monitor for dysphagia. Feb, CAREY (generalized anxiety disorder) (ICD-10 - F41.1) Healthy diet and keep active No change in medical therapy Feb, Occlusion of left carotid artery (ICD-10 - I65.22) Stable, right sided circulation. Continue secondary prevention measures. Reviewed stroke symptoms and instructed to go to ER Feb, Screening mammogram for breast cancer (ICD-10 - Z12.31) Instructed patient on monthly SBE and yearly mammograms. Feb, Age-related osteoporosis with current pathological fracture with routine healing, subsequent encounter (ICD-10 - M80.00XD) Ca and Vit D suppements. Weight bearing activity. Continue Prolia Feb, Vitamin D deficiency (ICD-10 - E55.9) Check Vit D Feb, Iron deficiency anemia secondary to inadequate dietary iron intake (ICD-10 - D50.8) Check CBC and Ferritin level No change in bowel habits No melena or hematochezia [employer] Other 11-29-2023 Evaluation note* Encounter Date Diagnosis Assessment Notes Treatment Notes Treatment Clinical Notes Jan, Chest wall pain (ICD-10 - R07.89) Ice, heat and Tylenol. Aleve w/ Pepcid qd as needed Slow, deep breaths XR to r/o rib fx Jan, Left hand pain (ICD-10 - M79.642) Contusion left hand Ice, heat and Tylenol. Voltaren Gel as needed Jan, Fall, initial encounter (ICD-10 - W19.XXXA) Fall precautions. She denies lightheadedness or unsteadiness. She is instructed not to barber bathtub unassisted, showers w/ grab bars safer. Jan, Primary hypertension (ICD-10 - I10) This patient is instructed to consume a healthy, low-fat, low-salt diet. They are also encouraged to continue exercise to achieve/maintain a normal BMI. Patient is instructed on home BP measurements: - rest for 5 minutes w/o talking- positioned w/ feet on floor and arm supported- average best 2/3 readings w/ goal < 135/85 _update in couple days [employer] Other 11-29-2023 Evaluation note* Encounter Date Diagnosis Assessment Notes Treatment Notes Treatment Clinical Notes Jan, Chest wall pain (ICD-10 - R07.89) [employer] Other 08-28-2023 Evaluation note* Encounter Date Diagnosis Assessment Notes Treatment Notes Treatment Clinical Notes Oct, Primary hypertension (ICD-10 - I10) This patient is instructed to consume a healthy, low-fat, low-salt diet. They are also encouraged to continue exercise to achieve/maintain a normal BMI. Oct, Occlusion of left carotid artery (ICD-10 - I65.22) Stable Continue healthy diet Continue ASA daily No further scanning necessary Oct, Lumbar spondylosis (ICD-10 - M47.816) The patient is instructed to avoid bending, twisting or lifting. They are to use intermittent heat and ice as needed. They may schedule a massage or gentle manipulation. They may safely use Tylenol as needed. Refuses to return to pain clinic - injections not helpful and may have experienced an adverse reaction [employer] Other 06-28-2023 Evaluation note* Encounter Date Diagnosis Assessment Notes Treatment Notes Treatment Clinical Notes Aug, Primary hypertension (ICD-10 - I10) This patient is instructed to consume a healthy, low-fat, low-salt diet. They are also encouraged to continue exercise to achieve/maintain a normal BMI. Aug, Occlusion of left carotid artery (ICD-10 - I65.22) Stable over many years w/ patent right carotid. No CTA findings to explain her symptoms No CT brain findings to explain her symptoms Aug, Bilateral carpal tunnel syndrome (ICD-10 - G56.03) Explained her symptoms and possible etiology Suggested purchasing cock up splints. Explained EMG/NCS to confirm dx Explained treatment options: splint, PT, injections and surgery Aug, Lumbar spondylosis (ICD-10 - M47.816) The patient is instructed to avoid bending, twisting or lifting. They are to use intermittent heat and ice as needed. They may schedule a massage or gentle manipulation. They may safely use Tylenol as needed. Aug, Acute left-sided low back pain with left-sided sciatica (ICD-10 - M54.42) Stretching exercises. Heat/ice and Lidocaine patches. Tylenol as needed. f/u Pain Clinic Aug, Paresthesias (ICD-10 - R20.2) Discussed possible etiology, including: - Fe, B12 deficiency - thyroid disorder - hypergammaglobulinemia Possibly CTS w/ upper extremities. Possibly lumbar spondylosis w/ left sided sciatica Aug, Other fatigue (ICD-10 - R53.83) Generalized anxiety contributes. 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 Checking B12, Fe, and Thyroid studies Aug, Anemia in other chronic diseases classified elsewhere (ICD-10 - D63.8) Hx of anemia of unknown etiology. Fe transiently low and replaced w/ IV Fe infusion. Recent Hgb have been normal. No obvious s/s bleeding [employer] Other 04-26-2023 Evaluation note* Encounter Date Diagnosis Assessment Notes Treatment Notes Treatment Clinical Notes Jun, Kyphoscoliosis deformity of spine (ICD-10 - M41.9) Jun, Lumbar spondylosis (ICD-10 - M47.816) [employer] Other 03-10-2023 Evaluation note* Encounter Date Diagnosis Assessment Notes Treatment Notes Treatment Clinical Notes May, Essential hypertension (ICD-10 - I10) May, Low back pain, unspecified (ICD-10 - M54.50) The patient is instructed to avoid bending, twisting or lifting. They are to use intermittent heat and ice as needed. They may schedule a massage or gentle manipulation. They may safely use Tylenol as needed. Pain management referral? May, Pelvic pain (ICD-10 - R10.2) r/o pelvic pathology but likely radicular pain from back May, Other secondary scoliosis, site unspecified (ICD-10 - M41.50) Calcium and Vit D supplements. Weight bearing exercise Continue Prolia May, Spondylosis, unspecified (ICD-10 - M47.9) May, Other chronic pain (ICD-10 - G89.29) [employer] Other 09-15-2022 Miscellaneous Notes* Telephone Encounter - Jewel Richardson RN - 11/17/2021 9:22 AM EDT Additional labs forwarded to Dr Zimmerman. All have now been sent from 11/16. Jewel Richardson RN * Telephone Encounter - Jewel Richardson RN - 11/17/2021 9:22 AM EDT ----- Message from Fiorella Gonzalez PA-C sent at 11/17/2021 8:24 AM EDT ----- Please forward all of yesterday's labs to Dr. Zimmerman. documented in this encounterMet[facility] Miscellaneous Notes* Telephone Encounter - Jewel Richardson RN - 11/16/2021 1:21 PM EDT Pt notified of blood sugar level and denies any complaints at this time. She is strongly encouragedto call for a follow up with Dr Zimmerman for further evaluation. She is also agrees to call 911 or go to the nearest ED if continued symptoms of dizziness, cold/clammy sweats, etc. She has ate since labsthis morning and agrees to POC as discussed. I have sent lab results to Dr. Florian Zimmerman that have resulted and will send the rest once results are rec'd. Jewel Richardson RN * Telephone Encounter - Jewel Richardson RN - 11/16/2021 1:19 PM EDT ----- Message from Fiorella Gonzalez PA-C sent at 11/16/2021 12:07 PM EDT ----- Please call and advise that her blood sugar in our office was low. She should eat a piece of candy or drink juice. If she feels dizzy, nauseated, weak or shaky, she will need to go to ER. Fiorella Gonzalez PA-C * Telephone Encounter - Fiorella Gonzalez PA-C - 11/16/2021 11:27 AM EDT Please send a copy of today's labs to Dr. Zimmerman's office. Fiorella Gonzalez PA-C documented in this encounterMetro[facility]22 NoteHNO ID: [id number] Author: Fiorella Gonzalez PA-C Service: ? Author Type: Physician Project Management Director Type: Progress Notes Filed: 11/16/2021 11:43 AM Note Text: HEMATOLOGY FOLLOW UP (Elements copied from Dr. Hernandez's note dated September 26, 2021, have been reviewed and updated where appropriate, and all reflect current assessment and medical decision making during today's encounter, November 16, 2021) November 16, 2021 PCP and other physicians involved in patient's care: Erik Zimmerman (PCP), Ta Espana (GI) DIAGNOSIS: Iron deficiency anemia HEMATOLOGICAL HISTORY: Patient mentions being iron deficient in 2019 or 2019 for which she took oral iron for a few months. EGD and colonoscopy at that time (Dr. Hernandez) did not reveal any abnormalities. I do not have these results. Patient was referred to me in June 2021 for iron deficiency anemia. This was based on microcytic anemia initially noted in February 2021. Hemoglobin was 10.4 g/dL. MCV was 78 fL and ferritin was 14. This was new since March 2020 when the CBC was normal. Oral iron was complicated by significant constipation June 2021, iron sucrose (total 900 mg) INTERVAL HISTORY: Nina returns for follow units. She last received IV iron in August 2021.She continues to feel well. Denies any bleeding or fatigue or shortness of breath. ROS is negative except that mentioned in HPI PAST MEDICAL SURGICAL FAMILY AND SOCIAL HISTORY: She has a history of -gastroesophageal reflux disease -iron deficiency anemia -hypertension -osteoporosis -left carotid stenosis No pertinent surgical or family history. No history of smoking. MEDICATIONS AND ALLERGIES: Reviewed PHYSICAL EXAM BP 143/86 Pulse 74 Temp 36.6 ?C (97.8 ?F) (Temporal) Resp 16 Ht 151.1 cm (4' 11.49 ) Wt 49 kg (108 lb) SpO2 99% BMI 21.46 kg/m? PHYSICAL EXAMINATION General: Alert and oriented, no distress, pleasant and cooperative. Heart: Regular, normal S1 and S2, no murmurs, rubs, or gallops Lungs: Clear to auscultation bilaterally Abdomen: Benign Extremities: Feet/ankles without edema, posterior tibial pulses full and symmetrical LABORATORY, IMAGING AND PATHOLOGY 04-03-20 hemoglobin 13.7, MCV 88, ferritin 23 02-21-21 hemoglobin 10.4, MCV 78 02-28-21 ferritin 14 03-06-21 hemoglobin 9.7, MCV May oral iron for one month 06-14-21 hemoglobin 8.9, MCV 69, ferritin 16 June 2021 one dose of iron sucrose 07-12-2021 hemoglobin 9.6, MCV 73, ferritin 86 09-26-21 hemoglobin 13.4, MCV 81, ferritin in process 10/25/21 ferritin 79.0, TIBD 288 11/16/21 hgb 14.5, MCV 87.2 ASSESSMENT AND RECOMMENDATIONS 85 female with iron deficiency anemia Oral iron was associated with significant GI upset. She received a total of 900 mg iron sucrose from June-July 2021. This resulted in improvement of symptoms and normalization of hemoglobin. She has seen Dr. Espana who did not feel the need to do scopes. Her repeat iron levels and CBC remain adequate. She would like to follow up with her PCP which is reasonable. If IV iron is indicated in the future, we would be happy to see her again. Fiorella Gonzalez PA-C CC: [facility] History of Present illness Narrative* Fiorella Gonzalez PA-C - 11/16/2021 11:00 AM EDT HEMATOLOGY FOLLOW UP (Elements copied from Dr. Hernandez's note dated September 26, 2021, have been reviewed and updated where appropriate, and all reflect current assessment and medical decision making during today's encounter, November 16, 2021) November 16, 2021 PCP and other physicians involved in patient's care: Erik Zimmerman (PCP), Ta Espana (GI) DIAGNOSIS: Iron deficiency anemia HEMATOLOGICAL HISTORY: Patient mentions being iron deficient in 2019 or 2019 for which she took oral iron for a few months. EGD and colonoscopy at that time (Dr. Hernandez) did not reveal any abnormalities. I do not have these results. Patient was referred to me in June 2021 for iron deficiency anemia. This was based on microcytic anemia initially noted in February 2021. Hemoglobin was 10.4 g/dL. MCV was 78 fL and ferritin was 14.This was new since March 2020 when the CBC was normal. Oral iron was complicated by significant constipation June 2021, iron sucrose (total 900 mg) INTERVAL HISTORY: Nina returns for follow units. She last received IV iron in August 2021.She continues to feel well. Denies any bleeding or fatigue or shortness of breath. ROS is negative except that mentioned in HPI PAST MEDICAL SURGICAL FAMILY AND SOCIAL HISTORY: She has a history of -gastroesophageal reflux disease -iron deficiency anemia -hypertension -osteoporosis -left carotid stenosis No pertinent surgical or family history. No history of smoking. MEDICATIONS AND ALLERGIES: Reviewed PHYSICAL EXAM BP 143/86 Pulse 74 Temp 36.6 C (97.8 F) (Temporal) Resp 16 Ht 151.1 cm (4' 11.49 ) Wt 49 kg (108 lb) SpO2 99% BMI 21.46 kg/m PHYSICAL EXAMINATION General: Alert and oriented, no distress, pleasant and cooperative. Heart: Regular, normal S1 and S2, no murmurs, rubs, or gallops Lungs: Clear to auscultation bilaterally Abdomen: Benign Extremities: Feet/ankles without edema, posterior tibial pulses full and symmetrical LABORATORY, IMAGING AND PATHOLOGY 04-03-20 hemoglobin 13.7, MCV 88, ferritin 23 02-21-21 hemoglobin 10.4, MCV 78 02-28-21 ferritin 14 03-06-21 hemoglobin 9.7, MCV May oral iron for one month 06-14-21 hemoglobin 8.9, MCV 69, ferritin 16 June 2021 one dose of iron sucrose 07-12-2021 hemoglobin 9.6, MCV 73, ferritin 86 09-26-21 hemoglobin 13.4, MCV 81, ferritin in process 10/25/21 ferritin 79.0, TIBD 288 11/16/21 hgb 14.5, MCV 87.2 ASSESSMENT AND RECOMMENDATIONS 85 female with iron deficiency anemia Oral iron was associated with significant GI upset. She received a total of 900 mg iron sucrose from June-July 2021. This resulted in improvement of symptoms and normalization of hemoglobin. She has seen Dr. Espana who did not feel the need to do scopes. Her repeat iron levels and CBC remain adequate. She would like to follow up with her PCP which is reasonable. If IV iron is indicated in the future, we would be happy to see her again. Fiorella Gonzalez PA-C CC: Erik Zimmerman documented in this encounterMetro[facility]07-25-2022 NoteHNO ID: [id number] Author: Binh Hernandez MD Service: ? Author Type: Physician Type: Progress Notes Filed: 09/26/2021 2:02 PM Note Text: HEMATOLOGY FOLLOW UP Elements in this clinic note that are critical to medical decision making have been carefully reviewed and included from my prior clinic note dated: July 26, 2021 September 26, 2021 PCP and other physicians involved in patient's care: Erik Zimmerman (PCP), Ta Espana (GI) DIAGNOSIS: Iron deficiency anemia HEMATOLOGICAL HISTORY: ? Patient mentions being iron deficient in 2019 or 2019 for which she took oral iron for a few months. EGD and colonoscopy at that time (Dr. Hernandez) did not reveal any abnormalities. I do not have these results. ? Patient was referred to me in June 2021 for iron deficiency anemia. This was based on microcytic anemia initially noted in February 2021. Hemoglobin was 10.4 g/dL. MCV was 78 fL and ferritin was 14. This was new since March 2020 when the CBC was normal. Oral iron was complicated by significant constipation ? June 2021, iron sucrose (total 900 mg) INTERVAL HISTORY: Nina comes back for follow-up. She is here with her daughter and sister. Overall doing well. No new symptoms. She saw Dr. Espana who did not feel the need to do scopes. ROS is negative except that mentioned in HPI PAST MEDICAL SURGICAL FAMILY AND SOCIAL HISTORY: She has a history of -gastroesophageal reflux disease -iron deficiency anemia -hypertension -osteoporosis -left carotid stenosis No pertinent surgical or family history. No history of smoking. MEDICATIONS AND ALLERGIES: Reviewed PHYSICAL EXAM BP 134/65 Pulse 64 Temp 36.6 ?C (97.9 ?F) (Temporal) Resp 16 Ht 151.1 cm (4' 11.49 ) Wt 49.4 kg (109 lb) SpO2 99% BMI 21.66 kg/m? Head atraumatic, no pallor or icterus, breathing comfortably, neuro grossly non-focal, skin without rash, extremities without swelling LABORATORY, IMAGING AND PATHOLOGY 04-03-20 hemoglobin 13.7, MCV 88, ferritin 23 02-21-21 hemoglobin 10.4, MCV 78 02-28-21 ferritin 14 03-06-21 hemoglobin 9.7, MCV May oral iron for one month 06-14-21 hemoglobin 8.9, MCV 69, ferritin 16 June 2021 one dose of iron sucrose 07-12-2021 hemoglobin 9.6, MCV 73, ferritin 86 09-26-21 hemoglobin 13.4, MCV 81, ferritin in process ASSESSMENT AND RECOMMENDATIONS 85 female with iron deficiency anemia Oral iron was associated with significant GI upset. She received a total of 900 mg iron sucrose from June-July 2021. This resulted in improvement of symptoms and normalization of hemoglobin on labs today. She has seen Dr. Espana who did not feel the need to do scopes. Repeat iron profile assessment in [address] Zimmerman's office, after which she will come back and see us. Binh Hernandez MD I spent a total of 15 minutes on the date of the service which included preparing to see the patient, [id number] patient care, completing clinical documentation, obtaining and/or reviewing separately obtained history, performing a medically appropriate examination, counseling and educating the patient/family/caregiver, ordering medications, tests, or procedures, independently interpreting results (not separately reported) and communicating results to the patient/family/caregiver. CC: [facility]erman[facility] History of Present illness Narrative* Binh Hernandez MD - 09/26/2021 1:25 PM EDT HEMATOLOGY FOLLOW UP Elements in this clinic note that are critical to medical decision making have been carefully reviewed and included from my prior clinic note dated: July 26, 2021 September 26, 2021 PCP and other physicians involved in patient's care: Erik Zimmerman (PCP), Ta Espana (GI) DIAGNOSIS: Iron deficiency anemia HEMATOLOGICAL HISTORY: Patient mentions being iron deficient in 2019 or 2019 for which she took oral iron for a few months. EGD and colonoscopy at that time (Dr. Hernandez) did not reveal any abnormalities. I do not have these results. Patient was referred to me in June 2021 for iron deficiency anemia. This was based on microcytic anemia initially noted in February 2021. Hemoglobin was 10.4 g/dL. MCV was 78 fL and ferritin was 14.This was new since March 2020 when the CBC was normal. Oral iron was complicated by significant constipation June 2021, iron sucrose (total 900 mg) INTERVAL HISTORY: Nina comes back for follow-up. She is here with her daughter and sister. Overalldoing well. No new symptoms. She saw Dr. Espana who did not feel the need to do scopes. ROS is negative except that mentioned in HPI PAST MEDICAL SURGICAL FAMILY AND SOCIAL HISTORY: She has a history of -gastroesophageal reflux disease -iron deficiency anemia -hypertension -osteoporosis -left carotid stenosis No pertinent surgical or family history. No history of smoking. MEDICATIONS AND ALLERGIES: Reviewed PHYSICAL EXAM BP 134/65 Pulse 64 Temp 36.6 C (97.9 F) (Temporal) Resp 16 Ht 151.1 cm (4' 11.49 ) Wt 49.4 kg (109 lb) SpO2 99% BMI 21.66 kg/m Head atraumatic, no pallor or icterus, breathing comfortably, neuro grossly non-focal, skin without rash, extremities without swelling LABORATORY, IMAGING AND PATHOLOGY 04-03-20 hemoglobin 13.7, MCV 88, ferritin 23 02-21-21 hemoglobin 10.4, MCV 78 02-28-21 ferritin 14 03-06-21 hemoglobin 9.7, MCV May oral iron for one month 06-14-21 hemoglobin 8.9, MCV 69, ferritin 16 June 2021 one dose of iron sucrose 07-12-2021 hemoglobin 9.6, MCV 73, ferritin 86 09-26-21 hemoglobin 13.4, MCV 81, ferritin in process ASSESSMENT AND RECOMMENDATIONS 85 female with iron deficiency anemia Oral iron was associated with significant GI upset. She received a total of 900 mg iron sucrose from June-July 2021. This resulted in improvement of symptoms and normalization of hemoglobin on labs today. She has seen Dr. Espana who did not feel the need to do scopes. Repeat iron profile assessment in [address] Zimmerman's office, after which she will come back and see us. Binh Hernandez MD I spent a total of 15 minutes on the date of the service which included preparing to see the patient, [id number] patient care, completing clinical documentation, obtaining and/or reviewing separately obtained history, performing a medically appropriate examination, counseling and educating the pat ient/family/caregiver, ordering medications, tests, or procedures, independently interpreting results (not separately reported) and communicating results to the patient/family/caregiver. CC: Erik Zimmerman documented in this encounterMet[facility] NoteHNO ID: [id number] Author: Angeles Moss RN Service: ? Author Type: Registered Nurse Type: Progress Notes Filed: 08/22/2021 1:19 PM Note Text: .[facility] History of Present illness Narrative* Angeles Moss RN - 08/22/2021 11:15 AM EDT . documented in this encounterMet[facility]05-24-2022 NoteHNO ID: [id number] Author: Binh Hernandez MD Service: ? Author Type: Physician Type: Progress Notes Filed: 07/26/2021 1:32 PM Note Text: HEMATOLOGY FOLLOW UP Elements in this clinic note that are critical to medical decision making have been carefully reviewed and included from my prior clinic note dated: June 14, 2021 July 26, 2021 PCP and other physicians involved in patient's care: Erik Zimmerman (PCP) DIAGNOSIS: Iron deficiency anemia HEMATOLOGICAL HISTORY: ? Patient mentions of being iron deficient in 2019 or 2019 for which she took oral iron for a few months. EGD and colonoscopy at that time (Dr. Hernandez) did not reveal any abnormalities. I do not have these results. ? Patient was referred to me in June 2021 for iron deficiency anemia. This was based on microcytic anemia initially noted in February 2021. Hemoglobin was 10.4 g/dL. MCV was 78 fL and ferritin was 14. This was new since March 2020 when the CBC was normal. Oral iron was complicated by significant constipation ? June 2021, iron sucrose INTERVAL HISTORY: Nina comes back for follow-up. She is here with a friend, Cory. Overall doing well. No new symptoms. She had 1 dose of iron sucrose. She is awaiting GI appointment. ROS is negative except that mentioned in HPI PAST MEDICAL SURGICAL FAMILY AND SOCIAL HISTORY: MEDICATIONS AND ALLERGIES: Reviewed PHYSICAL EXAM BP 113/82 Pulse 64 Temp 36.3 ?C (97.3 ?F) (Temporal) Resp 16 Ht 151.1 cm (4' 11.49 ) Wt 49.4 kg (108 lb 12.8 oz) SpO2 99% BMI 21.62 kg/m? Head atraumatic, no pallor, icterus or lymphadenopathy, lungs clear to auscultation, heart sounds regular, abdomen soft without distension or organomegaly, neuro grossly non-focal, skin without rash, extremities without swelling LABORATORY, IMAGING AND PATHOLOGY 04-03-20 hemoglobin 13.7, MCV 88, ferritin 23 02-21-21 hemoglobin 10.4, MCV 78 02-28-21 ferritin 14 03-06-21 hemoglobin 9.7, MCV May oral iron for one month 06-14-21 hemoglobin 8.9, MCV 69, ferritin 16 June 2021 one dose of iron sucrose 07-12-2021 hemoglobin 9.6, MCV 73, ferritin 86 ASSESSMENT AND RECOMMENDATIONS 85 female with iron deficiency anemia Oral iron has been associated with significant GI upset. Most recent labs show improving ferritin levels but persistent microcytic anemia. She received one dose of iron sucrose 300 mg and will need two additional doses. After that, I will see her back in September 2021 for a repeat lab assessment. She has been scheduled to see Dr. Uribe end of August 2021. Binh Hernandez MD I spent a total of 15 minutes on the date of the service which included preparing to see the patient, [id number] patient care, completing clinical documentation, obtaining and/or reviewing separately obtained history, performing a medically appropriate examination, counseling and educating the patient/family/caregiver, ordering medications, tests, or procedures, independently interpreting results (not separately reported) and communicating results to the patient/family/caregiver. CC: Erik ZimmermanChildren[facility]05-[facility] History of Present illness Narrative* Binh Hernandez MD - 07/26/2021 1:00 PM EDT HEMATOLOGY FOLLOW UP Elements in this clinic note that are critical to medical decision making have been carefully reviewed and included from my prior clinic note dated: June 14, 2021 July 26, 2021 PCP and other physicians involved in patient's care: Erik Zimmerman (PCP) DIAGNOSIS: Iron deficiency anemia HEMATOLOGICAL HISTORY: Patient mentions of being iron deficient in 2019 or 2019 for which she took oral iron for a few months. EGD and colonoscopy at that time (Dr. Hernandez) did not reveal any abnormalities. I do not have these results. Patient was referred to me in June 2021 for iron deficiency anemia. This was based on microcytic anemia initially noted in February 2021. Hemoglobin was 10.4 g/dL. MCV was 78 fL and ferritin was 14.This was new since March 2020 when the CBC was normal. Oral iron was complicated by significant constipation June 2021, iron sucrose INTERVAL HISTORY: Nina comes back for follow-up. She is here with a friend, Cory. Overall doing well. No new symptoms. She had 1 dose of iron sucrose. She is awaiting GI appointment. ROS is negative except that mentioned in HPI PAST MEDICAL SURGICAL FAMILY AND SOCIAL HISTORY: MEDICATIONS AND ALLERGIES: Reviewed PHYSICAL EXAM BP 113/82 Pulse 64 Temp 36.3 C (97.3 F) (Temporal) Resp 16 Ht 151.1 cm (4' 11.49 ) Wt 49.4 kg (108 lb 12.8 oz) SpO2 99% BMI 21.62 kg/m Head atraumatic, no pallor, icterus or lymphadenopathy, lungs clear to auscultation, heart sounds regular, abdomen soft without distension or organomegaly, neuro grossly non-focal, skin without rash, extremities without swelling LABORATORY, IMAGING AND PATHOLOGY 04-03-20 hemoglobin 13.7, MCV 88, ferritin 23 02-21-21 hemoglobin 10.4, MCV 78 02-28-21 ferritin 14 03-06-21 hemoglobin 9.7, MCV May oral iron for one month 06-14-21 hemoglobin 8.9, MCV 69, ferritin 16 June 2021 one dose of iron sucrose 07-12-2021 hemoglobin 9.6, MCV 73, ferritin 86 ASSESSMENT AND RECOMMENDATIONS 85 female with iron deficiency anemia Oral iron has been associated with significant GI upset. Most recent labs show improving ferritin levels but persistent microcytic anemia. She received one dose of iron sucrose 300 mg and will need two additional doses. After that, I will see her back in September 2021 for a repeat lab assessment. She has been scheduled to see Dr. Uribe end of August 2021. Binh Hernandez MD I spent a total of 15 minutes on the date of the service which included preparing to see the patient, [id number] patient care, completing clinical documentation, obtaining and/or reviewing separately obtained history, performing a medically appropriate examination, counseling and educating the pat ient/family/caregiver, ordering medications, tests, or procedures, independently interpreting results (not separately reported) and communicating results to the patient/family/caregiver. CC: Erik Zimmerman documented in this encounterMet[facility]05-16-2022 Miscellaneous Notes* Telephone Encounter - Sade Silva Pss - 07/18/2021 3:22 PM EDT Lab appt cancelled * Telephone Encounter - Charisma Henderson RN - 07/18/2021 2:55 PM EDT Received call from pt stating she had her labs done by her PCP and will bring in the results when she comes in for her appt. PSS: Please cancel pt's lab appt. She will still be in for her f/u with SJK. Thank you. Charisma Henderson RN documented in this encounterMetro[facility]04-22-2022 Miscellaneous Notes* Telephone Encounter - Charisma Henderson RN - 06/24/2021 1:24 PM EDT Call placed to pt. No answer. Left message informing her of Dr Hernandez's response and to return call if any questions/concerns. Charisma Henderson RN * Telephone Encounter - Binh Hernandez MD - 06/24/2021 1:16 PM EDT Please ask her to keep the July end appt. She will need iron labs rechecked. Thanks, SJK * Telephone Encounter - Charisma Henderson RN - 06/24/2021 1:12 PM EDT Received call from pt stating she is not able to get in with Dr Vera until September 01. So she didn't know if she should keep with f/u appt with Dr Hernandez as is on 07/26 or move it back until after her 09/01 appt. AUGUSTINK: Please advise. Charisma Henderson RN documented in this encounterMet[facility]04-14-2022 Miscellaneous Notes* Telephone Encounter - Jovita Ghotra Pss - 06/16/2021 2:02 PM EDT Called [facility] spoke with [facility]. She states they have received patient records/referral and have patient scheduled to see Dr Espana on 09/01 @ 1:45. Jovita Ghotra Pss * Telephone Encounter - Devi Lawrence [facility] - 06/14/2021 1:14 PM EDT Records faxed to Dr. Espana. * Telephone Encounter - Lilian Valdez Sec - 06/14/2021 12:29 PM EDT Patient is being referred to Gi Dr. Espana. Their office will call the patient to schedule this appt. Jackie, Please fax records to his office. Info has been printed for faxing and is in your mailbox. Thank you documented in this encounterMetrohealth [facility]04-12-2022 NoteHNO ID: [id number] Author: Binh Hernandez MD Service: ? Author Type: Physician Type: Progress Notes Filed: 06/14/2021 12:20 PM Note Text: HEMATOLOGY INITIAL CONSULTATION June 14, 2021 REFERRAL REQUESTED BY: Erik Zimmerman PCP and other physicians involved in patient's care: Erik Zimmerman (PCP) REASON FOR CONSULTATION: HEMATOLOGICAL HISTORY: ? Patient mentions of being iron deficient in 2019 or 2019 for which she took oral iron for a few months. EGD and colonoscopy at that time (Dr. Hernandez) did not reveal any abnormalities. I do not have these results. ? Patient was referred to me in June 2021 for iron deficiency anemia. This was based on microcytic anemia initially noted in February 2021. Hemoglobin was 10.4 g/dL. MCV was 78 fL and ferritin was 14. This was new since March 2020 when the CBC was normal. HPI: This is an 85-year-old female who comes to the clinic for iron deficiency anemia. Her hematologic history is as above. She comes in with a niece, Dominique. Briefly, patient is a very healthy 85-year-old vegetarian female who is in the clinic for iron deficiency anemia. Per patient, she was iron deficient in either 2018 on 2019. At this time, she had a EGD and colonoscopy by Dr. Hernandez that was normal. I do not have the results of that. She reports no GI or bleeding. She reports no intentional weight loss. No melena. Her CBC from March 2020 is normal. Based on the labs that I have, she was noted to be anemic again in February 2021 with a ferritin of 14. She tried oral iron for 1 month but had significant constipation and GI upset for which she has been referred to our clinic. Currently the patient feels well and denies any symptoms. She has had no GI evaluation since being iron deficient. ROS is negative except that mentioned in HPI PAST MEDICAL SURGICAL FAMILY AND SOCIAL HISTORY: MEDICATIONS AND ALLERGIES: Reviewed PHYSICAL EXAM BP 126/69 Pulse 71 Temp 36.1 ?C (97 ?F) (Temporal) Resp 16 Ht 151.1 cm (4' 11.49 ) Wt 48.1 kg (106 lb) SpO2 90% BMI 21.06 kg/m? Head atraumatic, no pallor, icterus or lymphadenopathy, lungs clear to auscultation, heart sounds regular, abdomen soft without distension or organomegaly, neuro grossly non-focal, skin without rash, extremities without swelling LABORATORY, IMAGING AND PATHOLOGY 04-03-20 hemoglobin 13.7, MCV 88, WBC 5.3 platelets 188 02-21-21 hemoglobin 10.4, MCV 78, WBC 5.9, platelets 258, creatinine 1.16 02-28-21 ferritin 14, iron 19, TIBC 497, saturation 4%, B12 543, MMA 172, folate 28 03-06-21 hemoglobin 9.7, MCV 75, WBC 7.2, platelets 212 Started oral iron in May 2021 05-30-21 hemoglobin 9.1, MCV 70, WBC 5.7, platelets 242 06-14-21 hemoglobin 8.9, MCV 69, WBC 4.9, platelets 230, iron profile in process ASSESSMENT AND RECOMMENDATIONS 85 female with iron deficiency anemia Oral iron has been associated with significant GI upset. I have recommended her a dose of Monoferric to be given end of June 2021. After that, she can stop oral iron and I will see her back for a repeat lab assessment end of July 2021. I have recommended her to see GI for possible scopes and/or capsule endoscopy to identify the source of iron deficiency. Patient is in agreement and referral has been provided. Follow-up in July 2021 with labs. Binh Hernandez MD I spent a total of 55 minutes on the date of the service which included preparing to see the patient, [id number] patient care, completing clinical documentation, obtaining and/or reviewing separately obtained history, performing a medically appropriate examination, counseling and educating the patient/family/caregiver, ordering medications, tests, or procedures, independently interpreting results (not separately reported) and communicating results to the patient/family/caregiver. CC: Erik ZimmermanChildren[facility]04-12-2022 History of Present illness Narrative* Binh Hernandez MD - 06/14/2021 11:00 AM EDT HEMATOLOGY INITIAL CONSULTATION June 14, 2021 REFERRAL REQUESTED BY: Erik Zimmerman PCP and other physicians involved in patient's care: Erik Zimmerman (PCP) REASON FOR CONSULTATION: HEMATOLOGICAL HISTORY: Patient mentions of being iron deficient in 2019 or 2019 for which she took oral iron for a few months. EGD and colonoscopy at that time (Dr. Hernandez) did not reveal any abnormalities. I do not have these results. Patient was referred to me in June 2021 for iron deficiency anemia. This was based on microcytic anemia initially noted in February 2021. Hemoglobin was 10.4 g/dL. MCV was 78 fL and ferritin was 14.This was new since March 2020 when the CBC was normal. HPI: This is an 85-year-old female who comes to the clinic for iron deficiency anemia. Her hematologic history is as above. She comes in with a niece, Dominique. Briefly, patient is a very healthy 85-year-old vegetarian female who is in the clinic for iron deficiency anemia. Per patient, she was iron deficient in either 2018 on 2019. At this time, she had a EGD and colonoscopy by Dr. Hernandez that was normal. I do not have the results of that. She reports noGI or bleeding. She reports no intentional weight loss. No melena. Her CBC from March 2020 is normal. Based on the labs that I have, she was noted to be anemic again in February 2021 with a ferritin of 14. She tried oral iron for 1 month but had significant constipation and GI upset for which she has been referred to our clinic. Currently the patient feels well and denies any symptoms. She has had no GI evaluation since being iron deficient. ROS is negative except that mentioned in HPI PAST MEDICAL SURGICAL FAMILY AND SOCIAL HISTORY: MEDICATIONS AND ALLERGIES: Reviewed PHYSICAL EXAM BP 126/69 Pulse 71 Temp 36.1 C (97 F) (Temporal) Resp 16 Ht 151.1 cm (4' 11.49 ) Wt 48.1 kg (106 lb) SpO2 90% BMI 21.06 kg/m Head atraumatic, no pallor, icterus or lymphadenopathy, lungs clear to auscultation, heart sounds regular, abdomen soft without distension or organomegaly, neuro grossly non- focal, skin without rash, extremities without swelling LABORATORY, IMAGING AND PATHOLOGY 04-03-20 hemoglobin 13.7, MCV 88, WBC 5.3 platelets 188 02-21-21 hemoglobin 10.4, MCV 78, WBC 5.9, platelets 258, creatinine 1.16 02-28-21 ferritin 14, iron 19, TIBC 497, saturation 4%, B12 543, MMA 172, folate 28 03-06-21 hemoglobin 9.7, MCV 75, WBC 7.2, platelets 212 Started oral iron in May 2021 05-30-21 hemoglobin 9.1, MCV 70, WBC 5.7, platelets 242 06-14-21 hemoglobin 8.9, MCV 69, WBC 4.9, platelets 230, iron profile in process ASSESSMENT AND RECOMMENDATIONS 85 female with iron deficiency anemia Oral iron has been associated with significant GI upset. I have recommended her a dose of Monoferric to be given end of June 2021. After that, she can stop oral iron and I will see her back for a repeat lab assessment end of July 2021. I have recommended her to see GI for possible scopes and/or capsule endoscopy to identify the source of iron deficiency. Patient is in agreement and referral has been provided. Follow-up in July 2021 with labs. Binh Hernandez MD I spent a total of 55 minutes on the date of the service which included preparing to see the patient, [id number] patient care, completing clinical documentation, obtaining and/or reviewing separately obtained history, performing a medically appropriate examination, counseling and educating the pat ient/family/caregiver, ordering medications, tests, or procedures, independently interpreting results (not separately reported) and communicating results to the patient/family/caregiver. 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 Iron deficiency anemia secondary to blood loss (chronic) documented in this encounter [facility]* Diagnosis Iron deficiency anemia due to chronic blood loss- Primary Iron deficiency anemia secondary to blood loss (chronic) [facility]* Diagnosis Iron deficiency anemia due to chronic blood loss- Primary Iron deficiency anemia secondary to blood loss (chronic) documented in this encounter [facility]* Diagnosis Iron deficiency anemia due to chronic blood loss- Primary Iron deficiency anemia secondary to blood loss (chronic) documented in this encounter [facility] noteNo InformationNortJeanes [facility] [employer] Other History general Narrative - Reported* Type Description Date Surgical History appendectomy [place] [employer] Other History general Narrative - Reported* Type Description Date Medical History Diarrhea Medical History Iron deficiency anemia Medical History Anemia due to blood loss Medical History Chronic GERD Medical History Chronic vasomotor rhinitis Medical History Vitamin D deficiency Medical History Iron deficiency anem ia secondary to inadequate dietary iron intake Medical History Essential hypertension Medical History Anxiety, generalized Medical History Palpitation Medical History Frontal headache Surgical History appendectomy Surgical History COLONOSCOPY 2005,2019 Surgical History EGD Surgical History CAROTID BYPASS Surgical History LEFT BUNIONECTOMY 2018 Hospitalization History SEE SURGICAL HX [employer] Other Reason for referral (narrative)* Reason Referral for pain ma nagement Diagnosis 1 Kyphoscoliosis defor mity of spine (M41.9) Diagnosis 2 Lumbar spondylosis ( M47.816) Referral Organization [facility] Referring Provider First Name Erik Referring Provider Last Name Erasmo Referring Provider Specialty Internal Me dicine Referred Organization [facility] Referred Provider Mirian Maldonado Referred Address [address] [place], [place],[address] Referred Provider Specialty Pain Medicin e Referral Priority Routine General Notes 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 She has daily pain, moderate in intensity, which interferes with activities of daily living. Clinical Notes XR lumbar spine and B/L hips to be included w/ referral. [employer] Other Reason for Referral Specialty Diagnoses / Procedures Referred By Juanpablo damian Referred To Contact Gastroenterology Diagnoses Iron deficiency anemia due to chronic blood loss Procedures CONSULT TO GASTROENTEROLOGY OFFICE/OUTPATIENT [facility] 60-74 MINUTES Binh Hernandez MD [address] [place] [address] [place] [address] Referral ID Status Reason Start Date Expiration Date Visits Requested Visits Authorized [id number] Authorized PCP Requested Referral 06/14/2021 06/14/2022 1 1 Medications Administered Section Inactive Administered Medications - up to 3 most recent administrations Medication Order MAR Action Action Date Dose Rate Site iron sucrose 300 mg in NaCl 0.9% 250 mL (VENOFER) 300 mg, INTRAVENOUS, at 166.67 mL/hr, Administer over 90 Minutes, ONCE, 1 dose, On Sun08/08/21 at 1130, Please conduct a 30 minute post dose observation. TV 290 mL New Bag/Syringe/Bottle 08/08/2021 11:21 AM EDT 300 mg 166.67 mL/hr Inactive Administered Medications - up to 3 most recent administrations Medication Order MAR Action Action Date Dose Rate Site iron sucrose 300 mg in NaCl 0.9% 250 mL (VENOFER) 300 mg, INTRAVENOUS, at 166.67 mL/hr, Administer over 90 Minutes, ONCE, 1 dose, On 08/22/21 at 1130, Please conduct a 30 minute post dose observation. TV 290 mL New Bag/Syringe/Bottle 08/22/2021 11:15 AM EDT 300 mg 166.67 mL/hr Summary Purpose Family History No Family History Records FoundNo Family History Records FoundNo Family History Records Found Advance Directives No Advanced Directives Records FoundNo Advanced Directives Records FoundNo Advanced Directives Records Found Additional Source Comments Source Comments (unrecognize d section and content) In the event this informatio n is protected by the Federal Confidentiality of Alcohol and Drug Abuse Patient Records regulations: The Federal rules restrict any use of the information to criminally investigate or prosecute any alcohol or drug abuse patient.[facility] the event this information is protected by the Federal Confidentiality of Alcohol and Drug Abuse Patient Records regulations: The Federal rules restrict any use of the information to criminally investigate or prosecute any alcohol or drug abuse patient.[facility] the event this information is protected by the Federal Confidentiality of Alcohol and Drug Abuse Patient Records regulations: The Federal rules restrict any use of the information to criminally investigate or prosecute any alcohol or drug abuse patient.[facility] the event this information is protected by the Federal Confidentiality of Alcohol and Drug Abuse Patient Records regulations: The Federal rules restrict any use of the information to criminally investigate or prosecute any alcohol or drug abuse patient.[facility] the event this information is protected by the Federal Confidentiality of Alcohol and Drug Abuse Patient Records regulations: The Federal rules restrict any use of the information to criminally investigate or prosecute any alcohol or drug abuse patient.[facility]In the event this information is protected by the Federal Confidentiality of Alcohol and Drug Abuse Patient Records regulations: The Federal rules restrict any use of the information to criminally investigate or prosecute any alcohol or drug abuse patient.[facility] CenterIn the event this information is protected by the Federal Confidentiality of Alcohol and Drug Abuse Patient Records regulations: The Federal rules restrict any use of the information to criminally investigate or prosecute any alcohol or drug abuse patient.[facility] CenterIn the event this information is protected by the Federal Confidentiality of Alcohol and Drug Abuse Patient Records regulations: The Federal rules restrict any use of the information to criminally investigate or prosecute any alcohol or drug abuse patient.[facility] CenterIn the event this information is protected by the Federal Confidentiality of Alcohol and Drug Abuse Patient Records regulations: The Federal rules restrict any use of the information to criminally investigate or prosecute any alcohol or drug abuse patient.[facility] CenterIn the event this information is protected by the Federal Confidentiality of Alcohol and Drug Abuse Patient Records regulations: The Federal rules restrict any use of the information to criminally investigate or prosecute any alcohol or drug abuse patient.[facility] CenterIn the event this information is protected by the Federal Confidentiality of Alcohol and Drug Abuse Patient Records regulations: The Federal rules restrict any use of the information to criminally investigate or prosecute any alcohol or drug abuse patient.[facility] CenterIn the event this information is protected by the Federal Confidentiality of Alcohol and Drug Abuse Patient Records regulations: The Federal rules restrict any use of the information to criminally investigate or prosecute any alcohol or drug abuse patient.[facility] Reason for Visit (unrecogniz ed section and content) WELLNESS Reason Comments Anemia New patient consult Reason Comments Future Appointment Reason Comments Appointment Reason Comments Medication Follow-up Monoferric not cove red - switched plan to Venfoer 300mg x3 weekly doses Reason Comments Results Appointment Reason Comments Anemia 6 week follow up Specialty Diagnoses / Procedures Referred By Contac t Referred To Contact Diagnoses Iron deficiency anemia due to chronic blood loss Procedures IRON SUCROSE INJECTION PER 1 MG Binh Hernandez MD [facility] [place] [place] [address] Fernando Treat [facility] [place] [address] Referral ID Status Reason Start Date Expiration Date V isits Requested Visits Authorized [id number] Authorized 06/15/2021 03/04/2022 99 99 Reason Comments Anemia Reason Comments Results Care Teams (unrecognized sec tion and content) Vp Relationship Specialty Start Date End Date Erik Zimmerman DO PCP - General Internal Medicine 11/17/13 Vp Relationship Specialty Start Date End Date Erik Zimmerman, DO PCP - General Internal Medicine 11/17/13 Vp Relationship Specialty Start Date End Date Erik Zimmerman, DO PCP - General Internal Medicine 11/17/13 Vp Relationship Specialty Start Date End Date Erik Zimmerman, DO PCP - General Internal Medicine 11/17/13 Vp Relationship Specialty Start Date End Date Erik Zimmerman, DO PCP - General Internal Medicine 11/17/13 Vp Relationship Specialty Start Date End Date Erik Zimmerman, DO PCP - General Internal Medicine 11/17/13 Vp Relationship Specialty Start Date End Date Erik Zimmerman, DO PCP - General Internal Medicine 11/17/13 Vp Relationship Specialty Start Date End Date Erik Zimmerman, DO PCP - General Internal Medicine 11/17/13 Vp Relationship Specialty Start Date End Date Erik Zimmerman, DO PCP - General Internal Medicine 11/17/13 INFORMATION SOURCE (unrecogn ized section and content) DATE CREATED AUTHOR 11/30/2021 [facility] DATE CREATED AUTHOR AUTHOR'S ORGANIZ ATION 07/12/2022 [facility] DATE CREATED AUTHOR AUTHOR'S ORGANIZ ATION 10/24/2022 [facility] FOR RECORDS PERTAINING TO PATIENTS WHO ARE OR HAVE BEEN ENROLLED IN A CHEMICAL DEPENDENCY/SUBSTANCEABUSE PROGRAM, SOME INFORMATION MAY BE OMITTED. This clinical summary was aggregated from multiple sources. Caution should be exercised in using it in the provision of clinical care. This summary normalizes information from multiple sources, and as a consequence, information in this document may materially change the coding, format and clinical context of patient data. In addition, data may be omitted in some cases. CLINICAL DECISIONS SHOULD BE BASED ON THE PRIMARY CLINICAL RECORDS. [facility]. provides no warranty or guarantee of the accuracy or completeness of information in this document.
== END 2023-05-11 14:20 | disposition home or self-care (01) ==
PROVIDERS: PCP Internal Medicine; Visit Provider Internal Medicine
DX: I49.9 Cardiac arrhythmia, unspecified (principal)
CPT/HCPCS: 93005

== ENCOUNTER 2023-05-30 13:31 | Outpatient (OUT) | payer MEDICARE, SELFPAY ==
--- NOTE | 2023-05-30 13:34 | US_ITS ---
[address] [address] Patient Name: NINA GEORGE MRN: [id number] date: 1935 Sex: F Assigned Patient Location: Current Patient Location: Accession/Order Number: [id number] Exam Date: 05/30/2023 13:40 Report Date: 05/31/2023 06:47 At the request of: YURY MAK Procedure: US carotid duplex BI EXAMINATION: US carotid duplex BI HISTORY: Occlusion Left Carotid Artery I65.22 COMPARISON: CT angiogram neck 08/18/2022 TECHNIQUE: Duplex Doppler ultrasound analysis of carotid and vertebral arteries. . Bilateral carotid arterial duplex examination was performed using B-mode, color flow and spectral analysis. Carotid stenosis is reported according to validated velocity parameters, similar to NASCET criteria. FINDINGS: RIGHT CAROTID ARTERY: Marked atherosclerotic disease with density of plaque obscuring the proximal and mid segments of the common carotid artery. RIGHT VERTEBRAL: Antegrade flow. Subclavian: PSV: 129.0 cm/s EDV: 11.1 cm/s CCA: Prox: PSV: EDV: Mid: PSV: EDV: Distal: PSV: 124.0 cm/s EDV: 21.5 cm/s BULB: PSV: 144.6 cm/s EDV: 35.9 cm/s ICA: Prox: PSV: 116.0 cm/s EDV: 13.7 cm/s Mid: PSV: 50.4 cm/s EDV: 14.2 cm/s Distal: PSV: 102.1 cm/s EDV: 21.9 cm/s ECA: PSV: 69.8 cm/s EDV: 0.0 cm/s VERTEBRAL: PSV: 82.7 cm/s EDV: 11.5 cm/s ICA/CCA ratio: PSV: 1.2 EDV: 1.7 LEFT CAROTID ARTERY: Complete occlusion of common carotid and internal carotid arteries. LEFT VERTEBRAL: Antegrade flow. Subclavian: PSV: 106.4 cm/s EDV: 11.1 cm/s CCA: Prox: PSV: EDV: Mid: PSV: EDV: Distal: PSV: EDV: BULB: PSV: EDV: ICA: Prox: PSV: EDV: Mid: PSV: EDV: Distal: PSV: EDV: ECA: PSV: 38.3 cm/s EDV: 0.0 cm/s VERTEBRAL: PSV: 143.8 cm/s EDV: 0.0 cm/s ICA/CCA ratio: PSV: EDV: US/US carotid duplex BI IMPRESSION: 1. Marked anterior wall atherosclerotic disease prevents evaluation of proximal and mid right common carotid artery. Normal flow within distal common carotid artery suggests more proximal segments are patent. Consider follow-up CTA neck for further evaluation. 2. 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 Electronically authenticated by: ENRIQUETA ZHENG Date: 05/31/2023 06:47
== END 2023-05-30 13:32 | disposition home or self-care (01) ==
LOC: US 13:31
PROVIDERS: PCP Internal Medicine; Visit Provider Internal Medicine
DX: I65.22 Occlusion and stenosis of left carotid artery (principal)
CPT/HCPCS: 93880

== ENCOUNTER 2023-06-18 14:15 | Outpatient (OUT) | payer MEDICARE, SELFPAY ==
[2023-06-18 14:54] LABS: Basophils Absolute Auto 0.1 10^3/uL (0.0-0.1); Basophils Percent Auto 1.1 % (0.2-2.0); Eosinophils Absolute Auto 0.3 10^3/uL (0.0-0.7); Eosinophils Percent Auto 4.4 % (0.9-7.0); Hematocrit 43.8 % (36.0-48.0); Hemoglobin 13.4 g/dL (12.0-16.0); Immature Granulocytes Abs Auto 0.02 10^3/uL (0.00-0.03); Immature Granulocytes Pct Auto 0.4 % (0.0-0.5); Lymphocytes Absolute Auto 1.5 10^3/uL (1.2-3.8); Lymphocytes Percent Auto 26.2 % (20.5-60.0); Mean Corpuscular HGB Conc 30.6 g/dL (29.9-35.2); Mean Corpuscular Hemoglobin 28.3 pg (26.7-34.0); Mean Corpuscular Volume 92.6 fL (81.0-99.0); Mean Platelet Volume 10.3 fL (9.5-13.5); Monocytes Absolute Auto 0.5 10^3/uL (0.3-0.8); Monocytes Percent Auto 9.4 % (1.7-12.0); Neutrophils Absolute Auto 3.3 10^3/uL (1.4-6.5); Neutrophils Percent Auto 58.5 % (43.0-75.0); Platelet Count 189 10^3/uL (150-450); Red Blood Count 4.73 10^6/uL (4.20-5.40); Red Cell Distribution Width 13.2 % (11.0-15.0); White Blood Count 5.7 10^3/uL (4.0-11.0)
[2023-06-18 14:55] LABS: Bilirubin Urine NEGATIVE (NEGATIVE); Blood Urine TRACE-I (NEGATIVE); Clarity Urine CLEAR (CLEAR); Color Urine LT. YELLOW (YELLOW); Glucose Urine UA NEGATIVE (NEGATIVE); Ketones Urine NEGATIVE (NEGATIVE); Leukocyte Esterase Urine NEGATIVE (NEGATIVE); Nitrite Urine NEGATIVE (NEGATIVE); Protein Urine 30 mg/dL (NEG/TRACE); Specific Gravity Urine 1.015 (1.005-1.025); Urobilinogen Urine 0.2 EU/dL (0.2-1.0); pH Urine 7.5 (5.0-9.0)
[2023-06-18 15:24] LABS: Thyroid Stimulating Hormone 0.901 uIU/mL (0.358-3.740)
[2023-06-18 15:51] LABS: Percent Iron Saturation 9.4 %
== END 2023-06-18 14:16 | disposition home or self-care (01) ==
LOC: LAB 14:16
PROVIDERS: PCP Internal Medicine; Visit Provider Internal Medicine
DX: G56.03 Carpal tunnel syndrome, bilateral upper limbs (principal); I10 Essential (primary) hypertension; D64.9 Anemia, unspecified; R53.83 Other fatigue
CPT/HCPCS: 36415; 81003; 82607; 82728; 82746; 83540; 83550; 84443; 85025

== ENCOUNTER 2023-08-10 11:13 | Outpatient (OUT) | payer MEDICARE, SELFPAY ==
--- NOTE | 2023-08-10 11:15 | MM_ITS ---
Patient Name: NINA GEORGE MR#: [id number] : 1935 Exam Date: 08/10/2023 Ordering Doctor: DR Erik Zimmerman D.O. RADIOLOGY REPORT PROCEDURE: MM TOMOSYNTHESIS SCREENING BI COMPARISON: MM TOMOSYNTHESIS SCREENING BI, 08/08/2022. MG MAMM SCREEN 3D VALERIY CAD, 08/04/2021. MG MAMM SCREEN 3D VALERIY CAD, 08/03/2020. MG MAMM VALERIY SCRN W CAD DIG, 04/21/2013. INDICATIONS: Screening Calculator Name NCI Breast Cancer Risk Assessment Tool 5 Year Breast Cancer Risk Not Applicable. Lifetime Breast Cancer Risk Not Applicable. Personal Breast Cancer No Personal Ovarian Cancer No Treatments None Family Cancers Sister with breast cancer at age 54; Father with panc/liver cancer at age 76. LOCATION: [facility] BREAST COMPOSITION: There are scattered areas of fibroglandular density. FINDINGS: DIAGNOSTIC CATEGORY 1--NEGATIVE. RIGHT BREAST: No significant suspicious finding. No significant change has occurred. LEFT BREAST: No significant suspicious finding. No significant change has occurred. RECOMMENDATIONS: ROUTINE MAMMOGRAM AND CLINICAL EVALUATION IN 12 MONTHS. PLEASE NOTE: A NORMAL MAMMOGRAM DOES NOT EXCLUDE THE POSSIBILITY OF BREAST CANCER. A CLINICALLY SUSPICIOUS PALPABLE LUMP SHOULD BE BIOPSIED. Dictated by: Juan Aviles M.D. on 08/10/2023 at 15:55 Approved by: Juan Aviles M.D. on 08/10/2023 at 15:58
--- OUTSIDE RECORDS SUMMARY | 2023-08-10 11:36 | XMS_ITS ---
Patient Summarization (C-CDA 2.1 CCD) Created on: August 10, 2023 Nina Escalona : 1935 Sex: Female Author Organization Sample organization Care Team Providers Care Champagne Maker Name Role Phone Erik Zimmerman DO Primary Care Provider ERIK ZIMMERMAN Primary Care Unavailable KUNTE, BINH Referring Unavailable BALL, ERIK Anderson Primary Care Unavailable KUNTE, BINH Referring Unavailable BALL, ERIK Anderson Primary Care Unavailable FIORELLA GONZALEZ Attending Unavailable KUNTE, BINH Referring Unavailable KUNTE, BINH Referring Unavailable BALL, ERIK Anderson Primary Care Unavailable KUNTE, BINH Attending Unavailable BALL, ERIK Anderson Primary Care Unavailable KUNTE, BINH Referring Unavailable BALL, ERIK Anderson Primary Care Unavailable BALL, ERIK Anderson Referring Unavailable KUNTE, BINH Attending Unavailable BALL, ERIK Anderson Primary Care Unavailable FIORELLA GONZALEZ Referring Unavailable KUNTE, BINH Referring Unavailable BALL, ERIK Anderson Primary Care Unavailable KUNTE, BINH Referring Unavailable BALL, ERIK Anderson Primary Care Unavailable KUNTE, BINH Attending Unavailable BALL, ERIK Anderson Primary Care Unavailable KUNTE, BINH Referring Unavailable Ball, Erik Unavailable DR ERIK ZIMMERMAN Primary Care Unavailable GIEDRAITIS, ANDRIUS Admitting Unavailable GIEDRAITIS, ANDJAYCEUS Attending Unavailable BALL, DR VALENCIA Admitting Unavailable BALL, DR VALENCIA Primary Care Unavailable BALL, DR VALENCIA Consulting Unavailable BALL, DR VALENCIA Attending Unavailable BALL, DR VALENCIA Attending Unavailable BALL, DR VALENCIA Admitting Unavailable BALL, DR VALENCIA Primary Care Unavailable BALL, DR VALENCIA Consulting Unavailable BALL, DR VALENCIA Attending Unavailable BALL, DR VALENCIA Admitting Unavailable BALL, DR VALENCIA Primary Care Unavailable BALL, DR VALENCIA Consulting Unavailable BALL, DR VALENCIA Attending Unavailable BALL, DR VALENCIA Admitting Unavailable BALL, DR VALENCIA Primary Care Unavailable BALL, DR VALENCIA Consulting Unavailable BALL, DR VALENCIA Attending Unavailable BALL, DR VALENCIA Primary Care Unavailable BALL, DR VALENCIA Admitting Unavailable BALL, DR VALENCIA Consulting Unavailable DE DIOS, DIA Consulting Unavailable BALL, DR VALENCIA Attending Unavailable BALL, DR VALENCIA Primary Care Unavailable BALL, DR VALENCIA Admitting Unavailable BALL, DR VALENCIA Consulting Unavailable BALL, DR VALENCIA Attending Unavailable BALL, DR VALENCIA Admitting Unavailable BALL, DR VALENCIA Primary Care Unavailable BALL, DR VALENCIA Attending Unavailable BALL, DR VALENCIA Primary Care Unavailable BALL, DR VALENCIA Admitting Unavailable BALL, DR VALENCIA Consulting Unavailable ZIEBER, DR ENRIQUETA Louis Consulting Unavailable MADAI, DR Elian Louis Admitting Unavailable MADAI, DR Elian Louis Consulting Unavailable BALL, DR VALENCIA Primary Care Unavailable MADAI, DR Elian Louis Attending Unavailable BALL, DR VALENCIA Consulting Unavailable BALL, DR VALENCIA Primary Care Unavailable BALL, DR VALENCIA Attending Unavailable BALL, DR VALENCIA Admitting Unavailable Cyrus BELLAMY, Trudy Anton Attending Unavailable Cyrus BELLAMY, Trudy Anton Attending Unavailable Ball, Erik Admitting Unavailable Ball, Erik Attending Unavailable Ball, Erik Primary Care Unavailable Ball, DO Valencia Primary Care Provider Erasmo, DO Valencia Attending Provider Allergies Allergy Classification Reported Allergen(s) Allergy Type Date of Onset Reaction(s) Facility (13 sources) predniSONE; Translations: [PREDNISONE] Drug Allergy 4 Other: See Comments [facility] (13 sources) Eye Drops Relief; Translations: [EYE DROPS RELIEF] Drug Allergy 4 Unknown [facility] (2 sources) predniSONE Drug Allergy 4 [facility] Repository Encounters Encounter Date Encounter Type Care Provider Facility Start: 08-09-2023 End: 08-09-2023 ambulatory DO Erik Zimmerman Work Phone: [facility] Work Phone: Start: 08-09-2023 End: 08-09-2023 Patient encounter procedure DO Erik Ball Work Phone: [facility] Work Phone: Start: 06-18-2023 End: 06-18-2023 ambulatory DO Erik Ball Work Phone: [facility] Work Phone: Start: 06-18-2023 End: 06-18-2023 Patient encounter procedure DO Erik Ball Work Phone: [facility] Work Phone: Start: 05-18-2023 End: 05-18-2023 ambulatory DO Erik Zimmerman Work Phone: [facility] Work Phone: Start: 05-18-2023 End: 05-18-2023 Patient encounter procedure DO Erik Ball Work Phone: [facility] Work Phone: Start: 05-11-2023 End: 05-11-2023 ambulatory Erik Ball Facility:[facility] Start: 05-11-2023 End: 05-11-2023 Patient encounter procedure DO Erik Erasmo Work Phone: [facility] Work Phone: Start: 04-18-2023 Non-patient / Non-visit DO Florian Zimmerman Work Phone: [facility] Professional [employer] Work Phone: Start: 03-28-2023 End: 03-28-2023 ambulatory Erik Zimmerman Other [employer] Other Start: 03-28-2023 Telephone encounter Erik Zimmerman [facility] Start: 02-21-2023 End: 02-21-2023 ambulatory Erik Zimmerman Other [employer] Other Start: 02-21-2023 Telephone encounter Erik Zimmerman [facility] Start: 02-19-2023 End: 02-19-2023 ambulatory Erik Ball Other [employer] Other Start: 02-19-2023 Patient encounter procedure Erik Zimmerman [facility] Start: 02-02-2023 End: 02-02-2023 ambulatory Erik Ball Other [employer] Other Start: 02-02-2023 Telephone encounter Erik Zimmerman [facility] Start: 01-31-2023 End: 01-31-2023 ambulatory Erik Ball Other [employer] Other Start: 01-31-2023 Office outpatient vi sit 15 minutes Erik Zimmerman [facility] Start: 01-31-2023 Telephone encounter Erik Erasmo FP [facility] Start: 10-31-2022 End: 10-31-2022 ambulatory Erik Erasmo Other [employer] Other Start: 10-31-2022 Telephone encounter Erik Erasmo [facility] Start: 10-30-2022 End: 10-30-2022 ambulatory Erik Zimmerman Other [employer] Other Start: 10-30-2022 Office outpatient vi sit 15 minutes Erik Zimmerman [facility] Start: 09-13-2022 End: 09-13-2022 ambulatory Erik Zimmerman Other [employer] Other Start: 09-13-2022 Telephone encounter Erik Zimmerman [facility] Start: 08-30-2022 End: 08-30-2022 ambulatory Erik Zimmerman Other [employer] Other Start: 08-30-2022 Office outpatient vi sit 25 minutes Erik Zimmerman [facility] Start: 08-14-2022 End: 08-15-2022 ambulatory Trudy Bridges MD Facility:[facility] Start: 08-08-[address] ERIK ZIMMERMAN Facili ty:[facility] Start: 07-21-2022 End: 07-22-[address] ERIK ZIMMERMAN Facility:[facility] Start: 06-28-2022 End: 06-28-2022 ambulatory Erik Zimmerman Other [employer] Other Start: 06-28-2022 Telephone encounter Erik Zimmerman [facility] Start: 05-17-2022 End: 05-17-2022 ambulatory Erik Zimmerman Other [employer] Other Start: 05-17-2022 Telephone encounter Erik Zimmerman [facility] Start: 05-16-2022 End: 05-17-[address] ERIK ZIMMERMAN Facility:[facility] Start: 05-12-2022 End: 05-12-2022 ambulatory Erik Zimmerman Other [employer] Other Start: 05-12-2022 Office outpatient vi sit 15 minutes Erik Zimmerman [facility] Start: 03-31-2022 End: 03-31-2022 ambulatory Erik Zimmerman Other [employer] Other Start: 03-31-2022 Telephone encounter Erik Zimmerman [facility] Start: 03-20-2022 End: 03-20-[address] ERIK ZIMMERMAN Facility:[facility] Start: 03-06-2022 End: 03-07-[address] ERIK ZIMMERMAN Facility:[facility] Start: 11-17-2021 Telephone encounter Jewel Alvarez Hematology/Oncology Comment on above: Results Start: 11-16-2021 Telephone encounter Fiorella villanueva PA-C Work Phone: Hematology/Oncology Comment on above: Results Start: 11-16-2021 End: 11-16-2021 ambulatory Fiorella Gonzalez PA-C Work Phone: Hematology/Oncology Comment on above: [...] Start: 08-22-2021 End: 08-22-2021 ambulatory Chair 17 Samuel Work Phone: Hematology/Oncology Comment on above: 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) Start: 08-08-2021 End: 08-08-2021 ambulatory Chair 18 Samuel Work Phone: Hematology/Oncology Comment on above: 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) Start: 08-04-2021 End: 08-05-[address] ERIK ZIMMERMAN Facility:[facility] Start: 07-26-2021 End: 07-26-2021 ambulatory Binh Hernandez MD Work Phone: Hematology/Oncology Comment on above: 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) Start: 07-26-2021 End: 07-26-2021 Patient encounter procedure Binh Hernandez MD Work Phone: [facility] Start: 07-18-2021 Telephone encounter Charisma Henderson RN Hematology/Oncology Comment on above: Results; Appointment Start: 07-12-2021 End: 07-13-[address] ERIK ZIMMEMRAN Facility: Start: 06-29-2021 End: 06-29-2021 ambulatory ERIK ZIMMERMAN Facility:[facility] Start: 06-24-2021 Telephone encounter Charisma Henderson RN Hematology/Oncology Comment on above: Appointment Start: 06-16-2021 Telephone encounter Dary [facility] Work Phone: [facility] HB[facility] Comment on above: Medication Follow-up (Monoferric not covered - switched plan to Venfoer 300mg x3 weekly doses) Start: 06-14-2021 Telephone encounter Binh Hernandez MD Work Phone: [facility] Comment on above: Future Appointment Start: 06-14-2021 End: 04-12-2022 ambulatory Binh Hernandez MD Work Phone: Hematology/Oncology Comment on above: 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) Start: 06-14-2021 End: 06-14-2021 Patient encounter procedure Binh Hernandez MD Work Phone: [facility] Immunizations Immunization Date Immunization Notes Care Provider Jon ring 08-09-2023 tetanus toxoid, reduced diphtheria toxoid, and acellular pertussis vaccine, adsorbed DO Erik [employer] Work Phone: [facility] 12-21-2022 COVID-19 (PFIZER) 12Y and older DO Erik [employer] Work Phone: [facility] 11-25-2022 Influenza vaccine, quadrivalent, adjuvanted DO Erik [employer] Work Phone: [facility] 11-25-2022 influenza virus vaccine, unspecified formulation DO Erik [employer] Work Phone: [facility] 11-25-2022 influenza, high dose seasonal, preservative-free Erik Zimmerman Other [employer] Other 04-10-2022 zoster vaccine recombinant DO [employer] Work Phone: [facility] 01-11-2022 COVID-19 mRNA Bivale nt Booster (Pfizer) DO Erik [employer] Work Phone: [facility] 12-13-2021 Seasonal trivalent influenza vaccine, adjuvanted, preservative free DO [employer] Work Phone: [facility] 08-31-2021 Prevnar 20 Erik [employer] Other [facility] 06-27-2021 COVID-19 vaccine, ag e 12+ yr ([employer] [address] - [facility]) Binh Hernandez MD Work Phone: [facility] 12-04-2020 influenza virus vaccine, split virus (incl. purified surface antigen) Erik Erasmo Other [employer] Other 12-04-2020 influenza virus vaccine, unspecified formulation DO Erik Zimmerman Work Phone: [facility] 12-04-2020 Seasonal trivalent influenza vaccine, adjuvanted, preservative free Binh Hernandez MD Work Phone: [facility] 11-29-2020 COVID-19 vaccine, ag e 12+ yr (P[employer]ER-[employer]IONTE[employer] - PURPLE TOP) Binh Hernandez MD Work Phone: [facility] 04-24-2020 COVID-19 vaccine, ag e 12+ yr (PFIZER-[employer]ION[employer]CH - PURPLE TOP) Binh Hernandez MD Work Phone: [facility] 04-03-2020 COVID-19 vaccine, ag e 12+ yr (PFIZER-[employer]ION[employer]CH - PURPLE TOP) Binh Hernandez MD Work Phone: [facility] 11-24-2019 influenza virus vaccine, split virus (incl. purified surface antigen) Erik Zimmerman Other [employer] [facility] [employer] Other 11-24-2019 influenza virus vaccine, unspecified formulation DO Erik Zimmerman Work Phone: [facility] 11-24-2019 Seasonal trivalent influenza vaccine, adjuvanted, preservative free Binh Hernandez MD Work Phone: [facility] 01-14-2019 influenza virus vaccine, split virus (incl. purified surface antigen) Erik Zimmerman Other [employer] Other 01-14-2019 influenza virus vaccine, unspecified formulation DO Erik Zimmerman Work Phone: [facility] 12-25-2017 Seasonal trivalent influenza vaccine, adjuvanted, preservative free Binh Hernandez MD Work Phone: [facility] 12-12-2017 influenza virus vaccine, split virus (incl. purified surface antigen) Erik Zimmerman Other [employer] Other 12-12-2017 influenza virus vaccine, unspecified formulation DO Erik Zimmerman Work Phone: [facility] 12-22-2016 influenza virus vaccine, split virus (incl. purified surface antigen) Erik Zimmerman Other [facility] [employer] Other 12-22-2016 influenza virus vaccine, unspecified formulation DO Erik Zimmerman Work Phone: [facility] 12-22-2016 influenza, high dose seasonal, preservative-free Binh Hernandez MD Work Phone: [facility] 12-13-2015 influenza virus vaccine, split virus (incl. purified surface antigen) Erik Zimmerman Other [facility] [employer] Other 12-13-2015 influenza virus vaccine, unspecified formulation DO Erik Zimmerman Work Phone: [facility] 12-13-2015 influenza, high dose seasonal, preservative-free Binh Hernandez MD Work Phone: [facility] 01-04-2015 pneumococcal conjuga te vaccine, 13 valent Erik Zimmerman Other [facility] 12-03-2014 influenza virus vaccine, split virus (incl. purified surface antigen) Erik Zimmerman Other [facility] [employer] Other 12-03-2014 influenza virus vaccine, unspecified formulation DO Erik Zimmerman Work Phone: [facility] 12-10-2013 tetanus and diphther ia toxoids, adsorbed, preservative free, for adult use (5 Lf of tetanus toxoid and 2 Lf of diphtheria toxoid) Erik Zimmerman Other [facility] 12-26-2012 influenza, seasonal, injectable Binh Hernandez MD Work Phone: [facility] 12-17-2012 tetanus and diphther ia toxoids, adsorbed, preservative free, for adult use (5 Lf of tetanus toxoid and 2 Lf of diphtheria toxoid) Erik Erasmo Other [facility] Medications Current Medications Medication Drug Class(es) Dates Sig (Normalized) Sig (Original) ALPRAZolam 0.25 mg oral tablet (20 sources) Benzodiazepine Start: 05-11-2023 take 0.25 mg by mouth every eight hours Alprazolam Active 0.25 MG PO Every 8 hours May 11, 2023 2:48pm Start: 04-23-2023 End: 05-11-2023 take 0.25 mg by mouth three times daily Alprazolam Discontinued 0.25 MG PO Three times daily April 23, 2023 8:49pm May 11, 2023 2:50pm Start: 05-07-2019 End: 04-23-2023 Alprazolam Discontinued TABL ET May 07, 2019 1:00am April 23, 2023 8:50pm take 1 tablet by bernice th every twelve hours ALPRAZolam 0.25 MG 1 tablet Orally Twice a day Active take 1 tablet by bernice th every eight hours as needed ALPRAZolam (XANAX) 0.25 mg tablet Take 0.25 mg by mouth three times daily as needed. 0 Active Comment on above: Take 0.25 mg by mout h three times daily as needed. amoxicillin 875 mg / clavulanate 125 mg oral tablet (1 source) Penicillin-class Antibacterial Start: take 1 tablet by mouth twice daily Amoxicillin-Pot Clavulanate Active 1 TAB PO Twice daily 10 August 09, 2023 12:00am aspirin 81 mg delayed release oral tablet (20 sources) Platelet Aggregation Inhibitor, Nonsteroidal Anti-inflammatory Drug Start: take 81 mg by mouth once daily Aspirin Active 81 MG PO Daily May 11, 2023 1:00am Baby Aspirin Act corinne take 1 tablet [...] (15 sources) Phosphate Binder, Calcium Calcium Active calcium carbonate 1500 mg oral tablet (4 sources) Start: 05-11-2023 take 600 mg by mouth once daily Calcium Carbonate Active 600 MG PO Daily May 11, 2023 1:00am End: 06-14-2021 take 1 tablet by mouth once daily calcium carbonate (CALTRATE) 600 mg (1,500 mg) tab Take 600 mg by mouth once daily. 0 06/14/2021 Discontinued Comment on above: Take 600 mg by mouth once daily. famotidine 40 mg oral tablet (20 sources) Histamine-2 Receptor Antagonist Start: 05-11-2023 take 40 mg by mouth once daily at bedtime Famotidine Active 40 MG PO Daily at bedtime May 11, 2023 1:00am Start: 09-26-2021 End: 10-26-2021 take 1 tablet [...] th twice daily. TAKE ONE TABLET BY [facility] ONCE DAILY AT BEDTIME FOR 30 DAYS fluticasone propionate 0.05 mg/actuat metered dose nasal spray (18 sources) Corticosteroid Start: 05-11-2023 Fluticasone Propionate Active 2 SPRAY INTRANASAL Daily May 11, 2023 1:00am Start: 03-07-2022 take 2 spray(s) nasal route on ce daily Start: 03-07-2022 take 2 spray(s) nasal route on ce daily Multivitamin With Iron (3 sources) Start: 05-11-2023 take 1 tablet by mouth once daily Multivitamin With Iron Active 1 TAB PO Daily May 11, 2023 1:00am Multivitamin/Iron (15 sources) Multivitamin/Iro n Active naproxen sodium 220 mg oral tablet (12 sources) Nonsteroidal Anti-inflammatory Drug Start: 05-11-2023 take 220 mg by mouth once daily at bedtime Naproxen Sodium Active 220 MG PO Daily at bedtime May 11, 2023 1:00am Start: 10-30-2022 take 1 tablet by bernice th once at bedtime as needed Aleve 220 MG 1 tablet with food or milk as needed Orally q HS w/ pepcid Oct, Active omeprazole 40 mg delayed release oral capsule (20 sources) Proton Pump Inhibitor Start: 05-11-2023 take 40 mg by mouth once daily Omeprazole Active 40 MG PO Daily May 11, 2023 1:00am Start: 10-19-2021 take 1 capsule by mo [facility] once daily Omeprazole 40 MG 1 capsule 30 minutes before morning meal Orally Once a day for 30 days Oct, Active Start: 05-07-2019 End: 05-11-2023 Omeprazole Discontinued Payam 2019 1:00am May 11, 2023 2:50pm PriLOSEC Not-Adin ing End: 09-26-2021 take 1 [...] above: Take by mouth as nee ded. brimonidine tartrate 2 mg/ml ophthalmic solution (3 sources) alpha-Adrenergic Agonist Start: 05-07-2019 End: 05-11-2023 Brimonidine Discontinued SOLUTION/ DROPS May 07, 2019 1:00am May 11, 2023 2:50pm cholecalciferol 0.125 mg oral tablet (1 source) Vitamin D End: 06-14-2021 cholecalciferol (VITAMIN D-3) 5,000 unit tab Take 5,000 mg by mouth once daily. 0 06/14/2021 Discontinued Comment on above: Take 5,000 mg by [facility] once daily. dorzolamide 20 mg/ml / timolol 5 mg/ml ophthalmic solution (12 sources) Carbonic Anhydrase Inhibitor, beta-Adrenergic Monie Start: 05-12-2021 take 1 drop(s) into the eye(s) twice daily dorzolamide-timolol (COSOPT) 22.3-6.8 mg/mL ophthalmic solution INSTILL ONE DROP TO RIGHT EYE TWICE A DAY 0 05/12/2021 Active Comment on above: INSTILL ONE DROP TO RIGHT EYE TWICE A DAY ferrous gluconate 324 mg oral tablet (3 sources) Start: 05-07-2019 End: 05-11-2023 Ferrous Gluconate Discontinued TABLET May 07, 2019 1:00am May 11, 2023 2:50pm folic acid 1 mg oral tablet (3 sources) Start: 05-07-2019 End: 05-11-2023 Folic Acid Discontinued TABLET May 07, 2019 1:00am May 11, 2023 2:50pm latanoprost 0.05 mg/ml ophthalmic solution (15 sources) Prostaglandin Analog Start: 05-12-2021 take 1 drop(s) into the eye(s) once daily in the evening latanoprost (XALATAN) 0.005 % ophthalmic solution INSTILL 1 DROP RIGHT EYE EVERY EVENING 0 05/12/2021 Active Start: 05-07-2019 End: 05-11-2023 Latanoprost Discontinued HEATHER UTION/ DROPS May 07, 2019 1:00am May 11, 2023 2:50pm Comment on above: INSTILL 1 DROP RIGHT EYE EVERY EVENING lisinopril 2.5 mg oral tablet (17 sources) Angiotensin Converting Enzyme Inhibitor Start: 05-07-2019 End: 05-11-2023 Lisinopril Discontinued TABLET May 07, 2019 1:00am May 11, 2023 2:50pm Start: 05-29-2014 lisinopril (ZE STRIL, PRINIVIL) 5 mg tablet Take 2.5 mg in the morning, take BP at 4p.m., if elevated over 145 mm/Hg systolic, take another 2.5 mg. 0 05/29/2014 Active Comment on above: Take 2.5 mg in the m orning, take BP at 4p.m., if elevated over 145 mm/Hg systolic, take another 2.5 mg. Loratadine (12 sources) loratadine (CLAR ITIN ORAL) Take by mouth. 0 Active Comment on above: Take by mouth. 24 hr metoprolol succinate 25 mg extended release oral tablet (3 sources) beta-Adrenergic Monie Start: 05-07-2019 End: 05-11-2023 Metoprolol Succinate Discontinued May 07, 2019 1:00am May 11, 2023 2:50pm triamcinolone acetonide 0.001 mg/mg topical ointment (1 source) Corticosteroid End: 06-14-2021 triamcinolone acetonide (KENALOG) 0.1 % ointment Apply to affected area twice daily. 0 06/14/2021 Discontinued Comment on above: Apply to affected ar ea twice daily. Payers Date Payer Category Payer Self-pay 2023 Unknown [id number] 2019 Private Health Insurance [employer]IC[employer] SUPPLEMENT [id number] 2019-Present [phone] [address] [address] [place] [address] Indemnity [id number] 2019 Private Health Insurance [id number] 1998 Medicare MEDICARE MEDICAR E A AND B [id number] 1998-Present [phone] [address] [address] [place] [address] Medicare [id number] 1998 Medicare [id number] 1959 Medicare [id number] 1959 Medicare [id number] 1933 Unknown [id number]. 2.593 1933 Unknown [id number] [id number]. 2.59 1933 Unknown [id number] [id number]. 2.593 1933 Unknown [id number] 2.16.840.1.574588.3.579. 2.59 1933 Unknown [id number] [id number]. 2.593 1933 Unknown [id number] [id number]. 2.59 1933 Unknown [id number] [id number]. 2.593 1933 Unknown [id number] 2.16.840.1.553666.3.579. 2.593 1933 Unknown [id number] [id number]. 2.593 1933 Unknown [id number] [id number]. 2.593 1933 Unknown [id number] 2.16.840.1.412006.3.579. 2.593 1933 Unknown [id number] [id number]. 2.196 1933 Unknown [id number]. 2.196 Private Health Insurance [place] [id number] Unknown [id number] Unknown [id number]. [id number] Plan of Treatment Date Care Activity Detail Author Start: 11-16-2024 DIABETES SCREEN DIABETES SCREEN [facility] Start: 06-14-2024 DIABETES SCREEN DIABETES SCREEN [facility] Start: 05-11-2023 EKG 12 channel panel [facility] Start: 11-16-2021 End: 01-16-2022 Ferritin [Mass/volume] in Serum or Plasma [facility] Work Phone: Comment on above: Expected: 11/16/2021 , Expires: 01/16/2022 Start: 11-16-2021 End: 01-16-2022 Iron and Iron binding capacity panel - Serum or Plasma [facility] Work Phone: Comment on above: Expected: 11/16/2021 , Expires: 01/16/2022 Start: 11-07-2021 End: 01-07-2022 CBC W Auto Differential panel - Blood CBC + DIFF Lab Routine Iron deficiency anemia due to chronic blood loss Expected: 11/07/2021 (Approximate), Expires: 01/07/2022 [facility] Work Phone: Comment on above: Expected: 11/07/2021 (Approximate), Expires: 01/07/2022 Start: 11-07-2021 End: 01-07-2022 Ferritin [Mass/volume] in Serum or Plasma FERRITIN BLD Lab Routine Iron deficiency anemia due to chronic blood loss Expected: 11/07/2021 (Approximate), Expires: 01/07/2022 [facility] Work Phone: Comment on above: Expected: 11/07/2021 (Approximate), Expires: 01/07/2022 Start: 11-07-2021 End: 01-07-2022 Iron and Iron binding capacity panel - Serum or Plasma IRON + TIBC Lab Routine Iron deficiency anemia due to chronic blood loss Expected: 11/07/2021 (Approximate), Expires: 01/07/2022 [facility] Work Phone: Comment on above: Expected: 11/07/2021 (Approximate), Expires: 01/07/2022 Start: 11-03-2021 Influenza vaccination INFLUENZA (#1) [facility] Start: 09-26-2021 End: 11-26-2021 Ferritin [Mass/volume] in Serum or Plasma [facility] Work Phone: Comment on above: Expected: 09/26/2021 , Expires: 11/26/2021 Start: 09-26-2021 End: 11-26-2021 Iron and Iron binding capacity panel - Serum or Plasma [facility] Work Phone: Comment on above: Expected: 09/26/2021 , Expires: 11/26/2021 Start: 07-26-2021 End: 09-25-2021 CBC W Auto Differential panel - Blood CBC + DIFF Lab Routine Iron deficiency anemia due to chronic blood loss Expected: 07/26/2021 (Approximate), Expires: 09/25/2021 [facility] Work Phone: Comment on above: Expected: 07/26/2021 (Approximate), Expires: 09/25/2021 Start: 07-26-2021 End: 09-25-2021 FERRITIN BLD FERRITIN BLD Lab Routine Iron deficiency anemia due to chronic blood loss Expected: 07/26/2021 (Approximate), Expires: 09/25/2021 [facility] Work Phone: Comment on above: Expected: 07/26/2021 (Approximate), Expires: 09/25/2021 Start: 07-26-2021 End: 09-25-2021 IRON + TIBC IRON + TIBC Lab Routine Iron deficiency anemia due to chronic blood loss Expected: 07/26/2021 (Approximate), Expires: 09/25/2021 [facility] Work Phone: Comment on above: Expected: 07/26/2021 (Approximate), Expires: 09/25/2021 Start: 06-13-2021 End: 08-13-2021 FERRITIN BLD FERRITIN BLD Lab Routine Iron deficiency anemia due to chronic blood loss Expected: 06/13/2021, Expires: 08/13/2021 [facility] Work Phone: Comment on above: Expected: 06/13/2021 , Expires: 08/13/2021 Start: 06-13-2021 End: 08-13-2021 IRON + TIBC IRON + TIBC Lab Routine Iron deficiency anemia due to chronic blood loss Expected: 06/13/2021, Expires: 08/13/2021 [facility] Work Phone: Comment on above: Expected: 06/13/2021 , Expires: 08/13/2021 Start: 03-05-2021 ADVANCE DIRECTIVE DISCUSSION ADVANCE DIRECTIVE DISCUSSION [facility] Start: 1998 BONE DENSITY BONE DENSITY [facility] Start: 1998 PNEUMOCOCCAL: 65+ (1 - PCV) PNEUMOCOCCAL: 65+ (1 - PCV) [facility] Start: 1998 PNEUMOVAX AGE 65 AND OVER WITH 5YR LOOKBACK (#1) PNEUMOVAX AGE 65 AND OVER WITH 5YR LOOKBACK (#1) [facility] Start: 11-19-1983 SHINGRIX VACCINE (1 of 2) SHINGRIX VACCINE (1 of 2) [facility] Start: 1952 Urine microalbumin profile DTAP,TDAP,TD (1 - Tdap) [facility] Bacteria identified in Urine by Culture [facility] FERRITIN BLD FERRITIN BLD Lab Routine Iron deficiency anemia due to chronic blood loss 06/14/2021 11:00 AM EDT [facility] Work Phone: IRON + TIBC IRON + TIBC Lab Routine Iron deficiency anemia due to chronic blood loss 06/14/2021 11:00 AM EDT [facility] Work Phone: US.doppler Carotid arteries - bilateral [facility] Problems Active Problems Problem Classification Problem Date Documented Da te Episodic/Chronic Abdominal pain (16 sources) Pain in pelvis; Translations: [Pelvic and perineal pain] Onset: 3 Episodic Anxiety disorders (20 sources) Generalized anxiety disorder; Translations: [Generalized anxiety disorder] Chronic Cardiac dysrhythmias (2 sources) Cardiac arrhythmia, unspecified; Translations: [Irregular heart beat] Onset: 4 05-11-2023 Chronic Cardiac dysrhythmias (20 sources) Palpitations; Translations: [...] classified elsewhere Chronic Deficiency and other anemia (18 sources) Iron deficiency anemia; Translations: [Iron deficiency anemia, unspecified] 05-11-2023 Episodic Deficiency and other anemia (14 sources) Iron deficiency anemia secondary to inadequate dietary iron intake; Translations: [Other iron deficiency anemias] Episodic Deficiency and other anemia (7 sources) Other iron deficiency anemias; Translations: [OTHER IRON DEFICIENCY ANEMIAS] Onset: 2 Episodic Deficiency and other anemia (2 sources) Anemia, unspecified; Translations: [Anemia, unspecified] 06-18-2023 Episodic E Codes: Fall (1 source) Unspecified fall, initial encounter Episodic Esophageal disorders (17 sources) Gastroesophageal reflux disease; Translations: [Gastro-esophageal reflux disease without esophagitis] Chronic Essential hypertension (20 sources) Hypertensive disorder; Translations: [Essential (primary) hypertension] Onset: 5 05-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 Headache; including migraine (14 sources) Frontal headache ; Translations: [Frontal headache] Episodic Malaise and fatigue (3 sources) Other fatigue; Translations: [Other malaise and fatigue] Episodic Nonspecific chest pain (14 sources) Precordial pain; Translations: [Precordial pain] Onset: 6 06-10-2015 Episodic Nutritional deficiencies (20 sources) Vitamin D deficiency; Translations: [Vitamin D deficiency, unspecified] Onset: 2 Chronic Occlusion or stenosis of precerebral arteries (20 sources) Left carotid artery occlusion; Translations: [Occlusion and stenosis of left carotid artery] Chronic Open wounds of extremities (2 sources) Dog bite of lower leg; Translations: [Open bite, left lower leg, initial encounter] 08-09-2023 Episodic Osteoarthritis (1 source) Bilateral primary osteoarthritis of hip; Translations: [BILATERAL PRIM OSTEOARTHRITIS HIP] Onset: 3 Chronic Osteoporosis (5 sources) 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 current pathological fracture; Translations: [AGE-REL OSTEOPOR W/O CURR PATH FX] Onset: 3 Chronic Other acquired deformities (17 sources) Kyphoscoliosis deformity of spine; Translations: [Scoliosis, unspecified] 05-11-2023 Chronic Other acquired deformities (15 sources) Other secondary scoliosis, site unspecified; Translations: [Other secondary scoliosis, site unspecified] Chronic Other acquired deformities (3 sources) Scoliosis, unspecified Chronic Other connective tissue disease (1 source) Pain in left hand Episodic Other ear and sense organ disorders (2 sources) Unspecified hearing loss, bilateral; Translations: [Unspecified hearing loss] 05-18-2023 Chronic Other ear and sense organ disorders (5 sources) Impacted cerumen, unspecified ear; Translations: [Impacted cerumen] 05-11-2023 Episodic Other fractures (2 sources) Fracture of one rib, right side, subsequent encounter for fracture with routine healing Episodic Other gastrointestinal disorders (15 sources) Diarrhea; Translations: [Diarrhea, unspecified] Episodic Other nervous system disorders (15 sources) Chronic pain; Translations: [Other chronic pain] 05-11-2023 Chronic Other nervous system disorders (1 source) Other chronic pain Chronic Other nervous system disorders (14 sources) Carpal tunnel syndrome; Translations: [Carpal tunnel syndrome, bilateral upper limbs] 05-11-2023 Chronic Other nervous system disorders (1 source) Carpal tunnel syndrome, bilateral upper limbs Chronic Other nervous system disorders (12 sources) Paresthesia; Translations: [Paresthesia of skin] 05-11-2023 Episodic Other nervous system disorders (12 sources) Abnormal sensation; Translations: [Other disturbances of skin sensation] 05-11-2023 Episodic Other nervous system disorders (1 source) Paresthesia of skin Episodic Other screening for suspected conditions (not mental disorders or infectious disease) (6 sources) Encounter for screening mammogram for malignant neoplasm of breast; Translations: [ENC SCR MAMMO MALIG NEOPLASM BREAST] Onset: 2 Episodic Other upper respiratory disease (18 sources) Vasomotor rhinitis; 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] 05-11-2023 Chronic Pathological fracture (3 sources) Age-related osteoporosis [...] UNSPECIFIED; Translations: [LOW BACK PAIN, UNSPECIFIED] Onset: Past or Other Problems Problem Classification Problem Date Documented Da te Episodic/Chronic Deficiency and other anemia (1 source) Iron deficiency anemia, unspecified; Translations: [IRON DEFICIENCY ANEMIA UNSPECIFIED] Onset: 09-08-2021 Episodic Other aftercare (1 source) Other long term acute care registered nurse (current) drug therapy; Translations: [OTH PHOTOGRAPHY MANAGER CURRENT DRUG THERAPY] Onset: 09-21-2021 Episodic Other [...] Test Name Value Interpretation Reference Range Facility Automated urine specific gra vity by refractometryon 06-18-2023 Specific gravity Refractometry automated (U) [Rel density] 1.015 1.005-1.025 [facility] Basophils Auto (Bld) [#/Vol] on 06-18-2023 Basophils (Bld) [#/Vol] 0.1 10 3/uL 0.0-0.1 [facility] Basophils/100 WBC Auto (Bld) on 06-18-2023 Basophils/100 WBC (Bld) 1.1 % 0.2-2.0 [facility] Bilirubin Auto test strip (U ) [Mass/Vol]on 06-18-2023 Bilirubin (U) [Mass/Vol] Negative NEGATIVE [facility] Color Auto (U)on 06-18-2023 Color (U) LT. YELLOW YELLOW [facility] Eosinophils/100 WBC Auto (Bl d)on 06-18-2023 Eosinophils/100 WBC (Bld) 4.4 % 0.9-7.0 [facility] Erythrocyte distribution wid th Auto (RBC) [Ratio]on 06-18-2023 Erythrocyte distribution width (RBC) [Ratio] 13.2 % 11.0-15.0 [facility] Glucose [Mass/volume] in Uri ne by Test stripon 06-18-2023 Glucose Test strip (U) [Mass/Vol] Negative NEGATIVE [facility] Hematocrit Auto (Bld) [Volum e fraction]on 06-18-2023 Hematocrit (Bld) [Volume fraction] 43.8 % 36.0-48.0 [facility] Hemoglobin [Mass/volume] in Bloodon 06-18-2023 Hemoglobin (Bld) [Mass/Vol] 13.4 g/dL 12.0-16.0 [facility] Iron binding capacity [Mass/ volume] in Serum or Plasmaon 06-18-2023 Iron binding capacity [Mass/Vol] 405.0 ug/dL 250.0-450.0 [facility] Iron saturation [Mass Fracti on] in Serum or Plasmaon 06-18-2023 Iron saturation [Mass fraction] 9.4 % [facility] Ketones Auto test strip (U) [Mass/Vol]on 06-18-2023 Ketones (U) [Mass/Vol] Negative NEGATIVE [facility] Laboratory - Chemistry and C hemistry - challengeon 06-18-2023 Cobalamin (Vitamin B12) [Mass/Vol] 334.0 pg/mL 193.0-986.0 [facility] Ferritin [Mass/Vol] 49.0 ng/mL 8.0-252.0 [facility] Iron [Mass/Vol] 38.0 ug/dL 50.0-170.0 [facility] TSH Qn 0.901 m[IU]/L 0.358-3.740 [facility] Laboratory - Hematology and Cell countson 06-18-2023 Immature granulocytes/100 WBC (Bld) 0.4 % 0.0-0.5 [facility] Leukocytes [#/volume] correc adarsh for nucleated erythrocytes in Blood by Automated counon 06-18-2023 WBC corrected for nucl RBC Auto (Bld) [#/Vol] 5.7 10 3/uL 4.0-11.0 [facility] Lymphocytes Auto (Bld) [#/Vo l]on 06-18-2023 Lymphocytes (Bld) [#/Vol] 1.5 10 3/uL 1.2-3.8 [facility] Lymphocytes/100 WBC Auto (Bl d)on 06-18-2023 Lymphocytes/100 WBC (Bld) 26.2 % 20.5-60.0 [facility] MCH Auto (RBC) [Entitic mass ]on 06-18-2023 MCH (RBC) [Entitic mass] 28.3 pg 26.7-34.0 [facility] MCHC Auto (RBC) [Mass/Vol]on 06-18-2023 MCHC (RBC) [Mass/Vol] 30.6 g/dL 29.9-35.2 [facility] MCV Auto (RBC) [Entitic vol] on 06-18-2023 MCV (RBC) [Entitic vol] 92.6 fL 81.0-99.0 [facility] Monocytes Auto (Bld) [#/Vol] on 06-18-2023 Monocytes (Bld) [#/Vol] 0.5 10 3/uL 0.3-0.8 [facility] Monocytes/100 WBC Auto (Bld) on 06-18-2023 Monocytes/100 WBC (Bld) 9.4 % 1.7-12.0 [facility] Neutrophils Auto (Bld) [#/Vo l]on 06-18-2023 Neutrophils (Bld) [#/Vol] 3.3 10 3/uL 1.4-6.5 [facility] Neutrophils/100 WBC Auto (Bl d)on 06-18-2023 Neutrophils/100 WBC (Bld) 58.5 % 43.0-75.0 [facility] No Panel Informationon 06-17 Eosinophils # (Auto) 0.3 10 3/uL 0.0-0.7 [facility] Folate 20.20 ng/mL 8.60-58.90 [facility] Immature Granulocyte # (Auto) 0.02 10 3/uL 0.00-0.03 [facility] Platelet mean volume Auto (B ld) [Entitic vol]on 06-18-2023 Platelet mean volume (Bld) [Entitic vol] 10.3 fL 9.5-13.5 [facility] Platelets Auto (Bld) [#/Vol] on 06-18-2023 Platelets (Bld) [#/Vol] 189 10 3/uL 150-450 [facility] Protein Auto test strip (U) [Mass/Vol]on 06-18-2023 Protein (U) [Mass/Vol] 30 mg/dL NEG/TRACE [facility] RBC Auto (Bld) [#/Vol]on RBC (Bld) [#/Vol] 4.73 10 6/uL 4.20-5.40 [facility] Specific gravity Auto test s trip (U) [Rel density]on 06-18-2023 Specific gravity (U) [Rel density] CLEAR CLEAR [facility] Urine hemoglobin detection b y automated test stripon 06-18-2023 Hemoglobin Auto test strip Ql (U) TRACE-I NEGATIVE [facility] Urine nitrite detection by a utomated test stripon 06-18-2023 Nitrite Auto test strip Ql (U) Negative NEGATIVE [facility] Urobilinogen Auto test strip (U) [Mass/Vol]on 06-18-2023 Urobilinogen Qn (U) 0.2 {Dank'U}/dL 0.2-1.0 [facility] pH Auto test strip (U)on pH (U) 7.5 [pH] 5.0-9.0 [facility] Estimated glomerular filtrat ion rate (GFR) non- Americanon 04-18-2023 GFR/1.73 sq M.predicted among non-blacks MDRD (S/P/Bld) [Vol rate/Area] 57 mL/min/{1.73_m2} >=60 [facility] Laboratory - Chemistry and C hemistry - challengeon 04-18-2023 Calcium [Mass/Vol] 9.0 mg/dL 8.5-10.1 [facility] Chloride [Moles/Vol] 105 mmol/L 98-107 [facility] CO2 [Moles/Vol] 28.0 mmol/L 21.0-32.0 [facility] Creatinine [Mass/Vol] 0.93 mg/dL 0.55-1.02 [facility] GFR/1.73 sq M.predicted MDRD (S/P/Bld) [Vol rate/Area] mL/min/{1.73_m2} >=60 [facility] Glucose [Mass/Vol] 87 mg/dL 74-106 [facility] Potassium [Moles/Vol] 4.0 mmol/L 3.5-5.1 [facility] Sodium [Moles/Vol] 141 mmol/L 136-145 [facility] Urea nitrogen [Mass/Vol] 19.0 mg/dL 7.0-18.0 [facility] Urea nitrogen/Creatinine [Mass ratio] 20.4 mg/mg [facility] No Panel Informationon 04-18 25-Hydroxy Vitamin D Total 38.2 ng/mL [facility] Comment on above: <20 ng/mL Vit D defi cient20-<30 ng/mL Vit D [id number] ng/mL Vit D sufficient>100 ng/mL Potential Toxicity Serum or plasma anion gap de terminationon 04-18-2023 Anion gap [Moles/Vol] 12.0 mmol/L [facility] Basic Metabolic Panelon 02-02 Anion gap [Moles/Vol] 10.9 mmol/L [facility] [employer] Other Calcium [Mass/Vol] 8.4327575 mg/dL Normal 8.5-10 .1 mg/dL [employer] Other Chloride [Moles/Vol] 102 mmol/L Normal 98-107 mmol/L [facility] [employer] Other CO2 [Moles/Vol] 28.35314816 mmol/L Normal 21.0-3 2.0 mmol/L [employer] Other Creatinine [Mass/Vol] 1.18019085 mg/dL High 0.55-1.02 mg/dL [employer] Other Glucose [Mass/Vol] 101 mg/dL Normal 74-106 mg/dL [facility] [employer] Other Potassium [Moles/Vol] 3.45703855 mmol/L Normal 3.5-5.1 mmol/L [employer] Other Sodium [Moles/Vol] 138 mmol/L Normal 136-145 mmol/L [employer] Other Urea nitrogen [Mass/Vol] 16.5101791 mg/dL Normal 7.0-18.0 mg/dL [employer] Other Urea nitrogen/Creatinine [Mass ratio] 14.7 mg/mg [employer] Other Basic Metabolic Panel see note [employer] Other Basic Metabolic Panel 47 Low >=60 [employer] Other Basic Metabolic Panel 57 Low >=60 [employer] Other FERRITINon 02-20-2023 Ferritin [Mass/Vol] 31.0724053 ng/mL Normal 8.0- 252.0 ng/mL [employer] Other XR HIPS VALERIY 5V W PELVISon [...] DE DIOS Date: 2022-05-16 11:52 Normal [facility] CBC AUTO DIFFon 03-06-2022 BASO # 0.0 103/ul Normal 0.0-0.1 [facility] Comment on above: Performed By: #### C BC ####[facility] [address] [place] [address]Dr. Devorah James Basophils/100 WBC (Bld) 0.7 % Normal 0.2-2.0 [facility] Comment on above: Performed By: #### C BC ####[facility] [address] [place], [place] [address]Dr. Devorah James EO # 0.2 103/ul Normal 0.0-0.7 [facility] Comment on above: Performed By: #### C BC ####[facility] [address] [place] [address]Dr. Devorah James Eosinophils/100 WBC (Bld) 3.7 % Normal 0.9-7.0 [facility] Comment on above: Performed By: #### C BC ####[facility] [address] [place] [address]Dr. Devorah James Erythrocyte distribution width (RBC) [Ratio] 12.8 % Normal 11.0-15.0 [facility] Comment on above: Performed By: #### C BC ####[facility] [address] [place] [address]DrDarvin James Hematocrit (Bld) [Volume fraction] 41.5 % Normal 36.0-48.0 [facility] Comment on above: Performed By: #### C BC ####[facility] [address] [place] [address]Dr. Devorah James Hemoglobin (Bld) [Mass/Vol] 13.3 g/dL Normal 12.0-16.0 [facility] Comment on above: Performed By: #### C BC ####[facility] [address] [place] [address]Dr. Devorah James IG # 0.01 10e3/ul Normal 0.00-0.03 [facility] Comment on above: Performed By: #### C BC ####[facility] [address] [place] [address]Dr. Devorah James IG % 0.2 % Normal 0.0-0.5 [facility] Comment on above: Performed By: #### C BC ####[facility] [address] [place] [address]DrDarvin James LYMPH # 1.1 103/ul Critically low 1.2-3.[address] [facility] Comment on above: Performed By: #### C BC ####[facility] [address] [place] [address]Dr. Devorah James Lymphocytes/100 WBC (Bld) 18.2 % Critically low 20.5-60.0 [facility] Comment on above: Performed By: #### C BC ####[facility] [address] [place] [address]DrDarvin James MANUAL DIFF REQ NO Normal [facility] Comment on above: Performed By: #### C BC ####[facility] [address] [place] [address]Dr. Devorah James MCH (RBC) [Entitic mass] 29.1 pg Normal 26.7-34.0 [facility] Comment on above: Performed By: #### C BC ####[facility] [address] [place] [address]Dr. Devorah James MCHC (RBC) [Mass/Vol] 32.0 g/dL Normal 29.9-35.2 [facility] Comment on above: Performed By: #### C BC ####[facility] [address] [place] [address]Dr. Devorah James MCV (RBC) [Entitic vol] 90.8 fL Normal 81.0-99.0 [facility] Comment on above: Performed By: #### C BC ####[facility] [address] [place] [address]Dr. Devorah James MONO # 0.6 103/ul Normal 0.3-0.8 [facility] Comment on above: Performed By: #### C BC ####[facility] [address] [place] [id number]. Devorah James Monocytes/100 WBC (Bld) 10.0 % Normal 1.7-12.0 [facility] Comment on above: Performed By: #### C BC ####[facility] [address] [place], [place] [address]Dr. Devorah James NEUT # 4.0 103/ul Normal 1.4-6.5 [facility] Comment on above: Performed By: #### C BC ####[facility] [address] [place], [place] [address]Dr. Devorah James Neutrophils/100 WBC (Bld) 67.2 % Normal 43.0-75.0 [facility] Comment on above: Performed By: #### C BC ####[facility] [address] [place], [place] [address]Dr. Devorah James Platelet mean volume (Bld) [Entitic vol] 10.1 fL Normal 9.5-13.5 [facility] Comment on above: Performed By: #### C BC ####[facility] [address] [place], [place] [address]Dr. Devorah James PLT 183 103/ul Normal 150-450 [facility] Comment on above: Performed By: #### C BC ####[facility] [address] [place], [place] [id number]. Devorah James RBC 4.57 106/ul Normal 4.20-5.40 [facility] Comment on above: Performed By: #### C BC ####[facility] [address] [place], [place] [address]Dr. Devorah James WBC 6.0 103/ul Normal 4.0-11.0 [facility] Comment on above: Performed By: #### C BC ####[facility] [address] [place] [id number] James FERRITINon 03-06-2022 Ferritin [Mass/Vol] 44.0 ng/mL Normal 8.0-252.0 [place] Comment on above: Performed By: #### F ERR, VITAD #### [facility] [address] [place] [address] [address] Devorah James PROF CHEM 8 (BAS METB)on Anion gap [Moles/Vol] 11.8 mmol/L Normal [facility] Comment on above: Performed By: #### B MP ####[facility] [address] [place] [address]DrDarvin James Calcium [Mass/Vol] 8.8 mg/dL Normal 8.5-10.1 [facility] Comment on above: Performed By: #### B MP ####[facility] [address] [place], [place] [address]DrDarvin James Chloride [Moles/Vol] 102 mmol/L Normal 98-107 [facility] Comment on above: Performed By: #### B MP ####[facility] [address] [place] [address]DrDarvin James CO2 [Moles/Vol] 27.7 mmol/L Normal 21.0-32.0 [facility] Comment on above: Performed By: #### B MP ####[facility] [address] [place] [address]DrDarvin James Creatinine [Mass/Vol] 0.84 mg/dL Normal 0.55-1.02 [facility] Comment on above: Performed By: #### B MP ####[facility] [address] [place] [address]DrDarvin James EGFR-AF CITIZEN [place] >60 Normal >=60 [facility] Comment on above: Performed By: #### B MP ####[facility] [address] [place] [address]Dr. Devorah James EGFR-NON AF CITIZEN OF [place] >60 Normal >=60 [facility] Comment on above: Performed By: #### B MP ####[facility] [address] [place] [address]Dr. Devorah James Glucose [Mass/Vol] 112 mg/dL Critically high 74-106 [facility] Comment on above: Performed By: #### B MP ####[facility] [address] [place] [id number]. Devorah James Potassium [Moles/Vol] 4.5 mmol/L Normal 3.5-5.1 [facility] Comment on above: Performed By: #### B MP ####[facility] [address] [place] [address]Dr. Devorah James Sodium [Moles/Vol] 137 mmol/L Normal 136-145 [facility] Comment on above: Performed By: #### B MP ####[facility] [address] [place] [address]Dr. Devorah James Urea nitrogen [Mass/Vol] 15.0 mg/dL Normal 7.0-18.0 [facility] Comment on above: Performed By: #### B MP ####[facility] [address] [place] [address]Dr. Devorah James Urea nitrogen/Creatinine [Mass ratio] 17.9 mg/mg Normal [facility] Comment on above: Performed By: #### B MP ####[facility] [address] [place] [address]DrDarvin James VITAMIN D 25 OHon 03-06-2022 VIT D 25-OH 47.3 ng/mL Normal [facility] Comment on above: Performed By: #### F ERR, VITAD #### [facility] [address] [place] [address] [address] Devorah James VIT D RANGES SEE BELOW Normal [facility] Comment on above: Result Comment: <20 ng/mL Vit D deficient 20 - <30 ng/mL Vit D insufficient 30 - 100 ng/mL Vit D sufficient >100 ng/mL Potential Toxicity Performed By: #### F ERR, VITAD #### [facility] [address] [address] [address] Devorah Lua 11-17-2021 CNPN Telephone (HEMTSA) NINA ESCALONA ([id number]) 1935 F Date Time Provider Department 11/17/21 [...] Status:Closed by JEWEL RICHARDSON on 11/17/21 Normal [facility] CBC W Auto Differential pane l (Bld)on 11-16-2021 Abs Immature Gran <0.10 k/uL [facility] Basophils (Bld) [#/Vol] 0.03 10*3/uL <0.11 k/uL [facility] Basophils (Bld) [#/Vol] 0.03 10*3/uL Normal <0.11 [facility] Comment on above: Order Comment: Speci men Type: BLOOD SPECIMENOrdering Facility: [facility] Address: [address] [place] [address] Performed By: #### 5 7021-8 ####[facility] LABCLIA [id number] [place] [address] Basophils/100 WBC (Bld) 0.6 % [facility] Basophils/100 WBC (Bld) 0.6 % Normal [facility] Comment on above: Order Comment: Speci men Type: BLOOD SPECIMENOrdering Facility: [facility] Address: [address] [place] [address] Performed By: #### 5 7021-8 ####[facility] LABCLIA [id number] [place] [address] Differential cell count method Nom (Bld) Auto [facility] Differential cell count method Nom (Bld) Auto Normal [facility] Comment on above: Order Comment: Speci men Type: BLOOD SPECIMENOrdering Facility: [facility] Address: [address] [place] [address] Performed By: #### 5 7021-8 ####[facility] LABCLIA [id number] [place] [address] Eosinophils (Bld) [#/Vol] 0.10 10*3/uL <0.46 k/uL [facility] Eosinophils (Bld) [#/Vol] 0.10 10*3/uL Normal <0.46 [facility] Comment on above: Order Comment: Speci men Type: BLOOD SPECIMENOrdering Facility: [facility] Address: [address] [place] [address] Performed By: #### 5 7021-8 ####[facility] LABCLIA [id number] [place] [address] Eosinophils/100 WBC (Bld) 2.1 % [facility] Eosinophils/100 WBC (Bld) 2.1 % Normal [facility] Comment on above: Order Comment: Speci men Type: BLOOD SPECIMENOrdering Facility: [facility] Address: [address] [place] [address] Performed By: #### 5 7021-8 ####[facility] LABCLIA [id number] [place] [address] Erythrocyte distribution width (RBC) [Ratio] 17.6 % High 11.5 - 15.0 % [facility] Erythrocyte distribution width (RBC) [Ratio] 17.6 % High 11.5-15.0 [facility] Comment on above: Order Comment: Speci men Type: BLOOD SPECIMENOrdering Facility: [facility] Address: [address] [place] [address] Performed By: #### 5 7021-8 ####[facility] LABCLIA [id number] [place] [address] Hematocrit (Bld) [Volume fraction] 46.2 % High 36.0 - 46.0 % [facility] Hematocrit (Bld) [Volume fraction] 46.2 % High 36.0-46.0 [facility] Comment on above: Order Comment: Speci men Type: BLOOD SPECIMENOrdering Facility: [facility] Address: [address] [place] [address] Performed By: #### 5 7021-8 ####[facility] LABCLIA [id number] [place] [address] Hemoglobin (Bld) [Mass/Vol] 14.5 g/dL 11.5 - 15.5 g/dL [facility] Hemoglobin (Bld) [Mass/Vol] 14.5 g/dL Normal 11.5-15.5 [facility] Comment on above: Order Comment: Speci men Type: BLOOD SPECIMENOrdering Facility: [facility] Address: [address] [place] [address] Performed By: #### 5 7021-8 ####[facility] LABIA [id number] [place] [address] Immature Gran % 0.2 % [facility] IMMATURE GRAN % 0.2 % Normal [facility] Comment on above: Order Comment: Speci men Type: BLOOD SPECIMENOrdering Facility: [facility] Address: [address] [place] [address] Performed By: #### 5 7021-8 ####[facility] LABIA [id number] [place] [address] IMMATURE GRAN ABS <0.03 Normal <0.10 [facility] Comment on above: Order Comment: Speci men Type: BLOOD SPECIMENOrdering Facility: [facility] Address: [address] [place] [address] Performed By: #### 5 7021-8 ####[facility] LABIA [id number] [place] [address] Lymphocytes (Bld) [#/Vol] 1.01 10*3/uL 1.00 - 4.00 k/uL [facility] Lymphocytes (Bld) [#/Vol] 1.01 10*3/uL Normal 1.00-4.00 [facility] Comment on above: Order Comment: Speci men Type: BLOOD SPECIMENOrdering Facility: [facility] Address: [address] [place] [address] Performed By: #### 5 7021-8 ####[facility] LABCLIA [id number] [place] [address] Lymphocytes/100 WBC (Bld) 21.7 % [facility] Lymphocytes/100 WBC (Bld) 21.7 % Normal [facility] Comment on above: Order Comment: Speci men Type: BLOOD SPECIMENOrdering Facility: [facility] Address: [address] [place] [address] Performed By: #### 5 7021-8 ####[facility] LABCLIA [id number] [place] [address] MCH (RBC) [Entitic mass] 27.4 pg 26.0 - 34.0 pg [facility] MCH (RBC) [Entitic mass] 27.4 pg Normal 26.0-34.0 [facility] Comment on above: Order Comment: Speci men Type: BLOOD SPECIMENOrdering Facility: [facility] Address: [address] [place] [address] Performed By: #### 5 7021-8 ####[facility] LABCLIA [id number] [place] [address] MCHC (RBC) [Mass/Vol] 31.4 g/dL 30.5 - 36.0 g/dL [facility] MCHC (RBC) [Mass/Vol] 31.4 g/dL Normal 30.5-36.0 [facility] Comment on above: Order Comment: Speci men Type: BLOOD SPECIMENOrdering Facility: [facility] Address: [address] [place] [address] Performed By: #### 5 7021-8 ####[facility] LABCLIA [id number] [place] [address] MCV (RBC) [Entitic vol] 87.2 fL 80.0 - 100.0 fL [facility] MCV (RBC) [Entitic vol] 87.2 fL Normal 80.0-100.0 [facility] Comment on above: Order Comment: Speci men Type: BLOOD SPECIMENOrdering Facility: [facility] Address: [address] [place] [address] Performed By: #### 5 7021-8 ####[facility] LABIA [id number] [place] [address] Monocytes (Bld) [#/Vol] 0.43 10*3/uL <0.87 k/uL [facility] Monocytes (Bld) [#/Vol] 0.43 10*3/uL Normal <0.87 [facility] Comment on above: Order Comment: Speci men Type: BLOOD SPECIMENOrdering Facility: [facility] Address: [address] [place] [address] Performed By: #### 5 7021-8 ####[facility] LABIA [id number] [place] [address] Monocytes/100 WBC (Bld) 9.2 % [facility] Monocytes/100 WBC (Bld) 9.2 % Normal [facility] Comment on above: Order Comment: Speci men Type: BLOOD SPECIMENOrdering Facility: [facility] Address: [address] [place] [address] Performed By: #### 5 7021-8 ####[facility] LABIA [id number] [place] [address] Neutrophils (Bld) [#/Vol] 3.08 10*3/uL 1.45 - 7.50 k/uL [facility] Neutrophils (Bld) [#/Vol] 3.08 10*3/uL Normal 1.45-7.50 [facility] Comment on above: Order Comment: Speci men Type: BLOOD SPECIMENOrdering Facility: [facility] Address: [address] Performed By: #### 5 7021-8 ####[facility] LABIA [id number] [place] [address] Neutrophils/100 WBC (Bld) 66.2 % [facility] Neutrophils/100 WBC (Bld) 66.2 % Normal [facility] Comment on above: Order Comment: Speci men Type: BLOOD SPECIMENOrdering Facility: [facility] Address: [address] [place] [address] Performed By: #### 5 7021-8 ####[facility] LABIA [id number] [place] [address] Nucleated RBC (Bld) [#/Vol] <0.01 k/uL [facility] Nucleated RBC (Bld) [#/Vol] 10*3/uL Normal <0.01 [facility] Comment on above: Order Comment: Speci men Type: BLOOD SPECIMENOrdering Facility: [facility] Address: [address] [place], [place] [address] Performed By: #### 5 7021-8 ####[facility] [id number] [place] [address] Nucleated RBC/100 WBC (Bld) [Ratio] 0.0 /100 WBC [facility] Nucleated RBC/100 WBC (Bld) [Ratio] 0.0 /100 WBC Normal [facility] Comment on above: Order Comment: Speci men Type: BLOOD SPECIMENOrdering Facility: [facility] Address: [address] [place] [address] Performed By: #### 5 7021-8 ####[facility] LABIA [id number] [place] [address] Platelet mean volume (Bld) [Entitic vol] 9.5 fL 9.0 - 12.7 fL [facility] Platelet mean volume (Bld) [Entitic vol] 9.5 fL Normal 9.0-12.7 [facility] Comment on above: Order Comment: Speci men Type: BLOOD SPECIMENOrdering Facility: [facility] Address: [address] [place] [address] Performed By: #### 5 7021-8 ####[facility] LABCLIA [id number] [place] [address] Platelets (Bld) [#/Vol] 190 10*3/uL 150 - 400 k/uL [facility] Platelets (Bld) [#/Vol] 190 10*3/uL Normal 150-400 [facility] Comment on above: Order Comment: Speci men Type: BLOOD SPECIMENOrdering Facility: [facility] Address: [address] [place] [address] Performed By: #### 5 7021-8 ####[facility] LABCLIA [id number] [place] [address] RBC (Bld) [#/Vol] 5.30 10*6/uL High 3.90 - 5.2 0 m/uL [facility] RBC (Bld) [#/Vol] 5.30 10*6/uL High 3.90-5.20 [facility] Comment on above: Order Comment: Speci men Type: BLOOD SPECIMENOrdering Facility: [facility] Address: [address] [place] [address] Performed By: #### 5 7021-8 ####[facility] LABCLIA [id number] [place] [address] WBC (Bld) [#/Vol] 4.66 10*3/uL 3.70 - 11. 00 k/uL [facility] WBC (Bld) [#/Vol] 4.66 10*3/uL Normal 3.70-11.00 [facility] Comment on above: Order Comment: Speci men Type: BLOOD SPECIMENOrdering Facility: [facility] Address: [address] [place] [address] Performed By: #### 5 7021-8 ####[facility] LABCLIA [id number] [place] [address] CNOVSPon 11-16-2021 CNOVSP Visit (SP) Office (HEMASA) NINA ESCALONA ([id number]) 1935 F Date Time Provider Department 11/16/21 [...] CC: Erik Zimmerman Referring Provider: BINH HERNANDEZ [[id number]] Allergies As of Date: 11/16/2021 Noted Allergy Reaction EYE DROPS RELIEF 11/25/2013 16 - Unknown Comments: Glaucoma eye drops PREDNISONE 11/25/2013 14 - Other: See Comments Comments: Palpitations, sob Date Reviewed: 11/16/2021 Reviewed by: Fiorella Gonzalez PA-C - Fully Assessed Reason for Visit: Anemia [6] Primary Visit Diagnosis:Iron deficiency anemia due to chronic blood loss [D50.0] Order(s):COMP METABOLIC PANEL [SQCMP] Order #: [id number] FUTURE IRON + TIBC [SQIRON] Order #: [id number] FUTURE CBC + DIFF [SQCBCDIF] Order #: [id number] FUTURE FERRITIN BLD [SQFERR] Order #: [id number] FUTURE Disposition: Return today (on 11/16/2021), or if symptoms worsen or fail to improve. Follow-up and Disposition History for Encounter Date Provider Department Center 11/16/2021 [id number] OGNZALEZ [facility] Prescriptions as of 11/16/2021 - aspirin 81 [...] as neede (more content not included)... Normal [facility] 11-16-2021 [facility] Telephone (CRISTINE) NINA ESCALONA ([id number]) 1935 F Date Time Provider Department 11/16/21 [...] Status:Closed by MANFRED KELLY on 11/16/21 Normal [facility] Comprehensive metabolic 2000 panelon 11-16-2021 Albumin [Mass/Vol] 4.4 g/dL 3.9 - 4.9 g/dL [facility] Albumin [Mass/Vol] 4.4 g/dL Normal 3.9-4.9 [facility] Comment on above: Order Comment: Speci men Type: BLOOD SPECIMENOrdering Facility: [facility] Address: [address] [place] [address] Performed By: #### 2 4323-8 ####[facility] LABIA [id number] [place] [address] ALP [Catalytic activity/Vol] 45 U/L 34 - 123 U/L [facility] ALP [Catalytic activity/Vol] 45 U/L Normal 34-123 [facility] Comment on above: Order Comment: Speci men Type: BLOOD SPECIMENOrdering Facility: [facility] Address: [address] [place] [address] Performed By: #### 2 4323-8 ####[facility] LABIA [id number] [place] [address] ALT [Catalytic activity/Vol] 11 U/L 7 - 38 U/L [facility] ALT [Catalytic activity/Vol] 11 U/L Normal 7-38 [facility] Comment on above: Order Comment: Speci men Type: BLOOD SPECIMENOrdering Facility: [facility] Address: [address] [place] [address] Performed By: #### 2 4323-8 ####[facility] LABIA [id number] [place] [address] Anion gap [Moles/Vol] 7 mmol/L Low 9 - 18 mmol/L [facility] Anion gap [Moles/Vol] 7 mmol/L Low 9-18 [facility] Comment on above: Order Comment: Speci men Type: BLOOD SPECIMENOrdering Facility: [facility] Address: [address] [place] [address] Performed By: #### 2 4323-8 ####[facility] LABIA [id number] [place] [address] AST [Catalytic activity/Vol] 22 U/L 13 - 35 U/L [facility] AST [Catalytic activity/Vol] 22 U/L Normal 13-35 [facility] Comment on above: Order Comment: Speci men Type: BLOOD SPECIMENOrdering Facility: [facility] Address: [address] [place] [address] Performed By: #### 2 4323-8 ####[facility] LABIA [id number] [place] [address] Bilirubin [Mass/Vol] 0.4 mg/dL 0.2 - 1 .3 mg/dL [facility] Bilirubin [Mass/Vol] 0.4 mg/dL Normal 0.2-1.3 [facility] Comment on above: Order Comment: Speci men Type: BLOOD SPECIMENOrdering Facility: [facility] Address: [address] [place] [address] Performed By: #### 2 4323-8 ####[facility] LABIA [id number] [place] [address] Calcium [Mass/Vol] 9.7 mg/dL 8.5 - 10. 2 mg/dL [facility] Calcium [Mass/Vol] 9.7 mg/dL Normal 8.5-10.2 [facility] Comment on above: Order Comment: Speci men Type: BLOOD SPECIMENOrdering Facility: [facility] Address: [address] [place] [address] Performed By: #### 2 4323-8 ####[facility] LABCLIA [id number] [place] [address] Chloride [Moles/Vol] 102 mmol/L 97 - 10 5 mmol/L [facility] Chloride [Moles/Vol] 102 mmol/L Normal 97-105 [facility] Comment on above: Order Comment: Speci men Type: BLOOD SPECIMENOrdering Facility: [facility] Address: [address] [place] [address] Performed By: #### 2 4323-8 ####[facility] LABIA [id number] [place] [address] CO2 [Moles/Vol] 29 mmol/L 22 - 30 mmol/L [facility] CO2 [Moles/Vol] 29 mmol/L Normal 22-30 [facility] Comment on above: Order Comment: Speci men Type: BLOOD SPECIMENOrdering Facility: [facility] Address: [address] [place] [address] Performed By: #### 2 4323-8 ####[facility]ERT[facility] LABCLIA [id number] [place] [address] Creatinine [Mass/Vol] 0.85 mg/dL 0.58 - 0.96 mg/dL [facility] Creatinine [Mass/Vol] 0.85 mg/dL Normal 0.58-0.96 [facility] Comment on above: Order Comment: Speci men Type: BLOOD SPECIMENOrdering Facility: [facility] Address: [address] [place] [address] Performed By: #### 2 4323-8 ####[facility]ERT[facility] LABCLIA [id number] [place] [address] Estimated Glomerular Filtration Rate 66 mL/min/1.73m >=60 mL/min/1.73m [facility] ESTIMATED GLOMERULAR FILTRATION RATE 66 mL/min/1.73m??? Normal >=60 [facility] Comment on above: Order Comment: Nesha parikh Type: BLOOD SPECIMENOrdering Facility: [facility] Address: [address] [place], [place] [address] [address] Result Comment: Kala mated Glomerular Filtration Rate [...] actual GFR. Performed By: #### 2 4323-8 ####[facility] LABCLIA [id number] [place] [address] Glucose [Mass/Vol] 60 mg/dL Low 74 - 99 mg/dL [facility] Glucose [Mass/Vol] 60 mg/dL Low 74-99 [facility] Comment on above: Order Comment: Nesha parikh Type: BLOOD SPECIMENOrdering Facility: [facility] Address: [address] [place] [address] Result Comment: The [place] Diabetes Association (ADA) provides guidance for cutoff [...] Standards of Medical Care in Diabetes 2016, [place] Diabetes Association. Diabetes Care. 2016.39(Suppl 1). Performed By: #### 2 4323-8 ####[facility] LABCLIA [id number] [place] [address] Potassium [Moles/Vol] 5.1 mmol/L 3.7 - 5.1 mmol/L [facility] Potassium [Moles/Vol] 5.1 mmol/L Normal 3.7-5.1 [facility] Comment on above: Order Comment: Speci men Type: BLOOD SPECIMENOrdering Facility: [facility] Address: [address] [place] [address] Performed By: #### 2 4323-8 ####[facility] LABCLIA [id number] [place] [address] Protein [Mass/Vol] 6.8 g/dL 6.3 - 8.0 g/dL [facility] Protein [Mass/Vol] 6.8 g/dL Normal 6.3-8.0 [facility] Comment on above: Order Comment: Speci men Type: BLOOD SPECIMENOrdering Facility: [facility] Address: [address] [place] [address] Performed By: #### 2 4323-8 ####[facility] LABCLIA [id number] [place] [address] Sodium [Moles/Vol] 138 mmol/L 136 - 144 mmol/L [facility] Sodium [Moles/Vol] 138 mmol/L Normal 136-144 [facility] Comment on above: Order Comment: Speci men Type: BLOOD SPECIMENOrdering Facility: [facility] Address: [address] [place] [address] Performed By: #### 2 4323-8 ####[facility] LABCLIA [id number] [place] [address] Urea nitrogen [Mass/Vol] 14 mg/dL 7 - 21 mg/dL [facility] Urea nitrogen [Mass/Vol] 14 mg/dL Normal 7-21 [facility] Comment on above: Order Comment: Speci men Type: BLOOD SPECIMENOrdering Facility: [facility] Address: [address] [place] [address] Performed By: #### 2 4323-8 ####[facility] LABCLIA [id number] [place] [address] Ferritin SerPl-mCncon 2021 Ferritin [Mass/Vol] 84.5 ng/mL Normal 14.7-205.1 [facility] Comment on above: Order Comment: Speci men Type: BLOOD SPECIMENOrdering Facility: [facility] Address: [address] [place] [address] Performed By: #### 2 276-4 ####[facility] LABCLIA [id number] [place] [address] [place] Iron and Iron binding capaci ty panelon 11-16-2021 Iron [Mass/Vol] 71 ug/dL Normal 41-186 [facility] Comment on above: Order Comment: Speci men Type: BLOOD SPECIMENOrdering Facility: [facility] Address: [address] [place] [address] Performed By: #### 5 0190-8 ####[facility] LABCLIA [id number] [address] [place] Iron binding capacity [Mass/Vol] 376 ug/dL Normal 232-386 [facility] Comment on above: Order Comment: Speci men Type: BLOOD SPECIMENOrdering Facility: [facility] Address: [address] [place] [address] Performed By: #### 5 0190-8 ####[facility] LABCLIA [id number] [place] [address] [place] Iron/TIBC [Molar ratio] 18.9 % Normal 15.0-57.0 [facility] Comment on above: Order Comment: Speci men Type: BLOOD SPECIMENOrdering Facility: [facility] Address: [address] [place] [address] Performed By: #### 5 0190-8 ####[facility] LABCLIA [id number] [place] [address] [place] FERRITINon 10-25-2021 Ferritin [Mass/Vol] 79.0 ng/mL Normal 8.0-252.0 [facility] Comment on above: Performed By: #### F ETIBC, FERR ####[facility] [id number] [place] [address]Dr. Devorah James IRON AND TIBCon 10-25-2021 % SATURATION 13.2 % Normal [facility] Comment on above: Performed By: #### F ETIBC, FERR ####[facility] [id number] [place] [address]Dr. Devorah James Iron [Mass/Vol] 38.0 ug/dL Critically low 50.0-170.0 [facility] Comment on above: Performed By: #### F ETIBC, FERR ####[facility] [address] [place] [address]Dr. Devorah James TIBC DIRECT 288.0 ug/dL Normal 250.0-450.0 [facility] Comment on above: Performed By: #### F ETIBC, FERR ####[facility] [id number] [place] [id number]. Devorah James RETICULOCYTEon 10-25-2021 RETIC 1.23 % Normal 0.60-3.10 [facility] Comment on above: Performed By: #### R ETIC ####[facility] [id number] [place] [address]Dr. Devorah James Stoney 09-28-2021 CNPN Telephone (HEMASA) NINA ESCALONA ([id number]) 1935 F Date Time Provider Department 09/28/21 CHARISMA CYR During your visit today, we recorded the following information about you: Charisma Cyr RN 09/28/2021 2:16 PM Signed ----- Message from Sherron Lyon RN sent at 09/28/2021 9:05 AM EDT ----- ----- Message ----- From: Binh Hernandez MD Sent: 09/27/2021 6:12 PM EDT To: Sherron Lyon RN Co Tiff. Can you please let patient know that ferritin came back normal. No change in recommendations. We will see her back for repeat assessment in 6 weeks. Thanks, [facility] Charisma Cyr RN 09/28/2021 4:00 PM Signed [...] Status:Closed by CHARISMA CYR on 09/28/21 Normal [facility] CBC W Auto Differential pane l (Bld)on 09-26-2021 Abs Immature Gran 0.03 k/uL <0.10 k/uL [facility] Basophils (Bld) [#/Vol] 0.05 10*3/uL <0.11 k/uL [facility] Basophils (Bld) [#/Vol] 0.05 10*3/uL Normal <0.11 [facility] Comment on above: Order Comment: Speci men Type: BLOOD SPECIMENOrdering Facility: [facility] Address: [address] [place] [address] Performed By: #### 5 7021-8 ####[facility] LABCLIA [id number] [place] [address] Basophils/100 WBC (Bld) 0.9 % [facility] Basophils/100 WBC (Bld) 0.9 % Normal [facility] Comment on above: Order Comment: Speci men Type: BLOOD SPECIMENOrdering Facility: [facility] Address: [address] [place] [address] Performed By: #### 5 7021-8 ####[facility] LABIA [id number] [place] [address] Differential cell count method Nom (Bld) Auto [facility] Differential cell count method Nom (Bld) Auto Normal [facility] [facility] Comment on above: Order Comment: Speci men Type: BLOOD SPECIMENOrdering Facility: [facility] Address: [address] [place] [address] Performed By: #### 5 7021-8 ####[facility] LABCLIA [id number] [place] [address] Eosinophils (Bld) [#/Vol] 0.23 10*3/uL <0.46 k/uL [facility] Eosinophils (Bld) [#/Vol] 0.23 10*3/uL Normal <0.46 [facility] Comment on above: Order Comment: Speci men Type: BLOOD SPECIMENOrdering Facility: [facility] Address: [address] [place] [address] Performed By: #### 5 7021-8 ####[facility] LABCLIA [id number] [place] [address] Eosinophils/100 WBC (Bld) 4.1 % [facility] Eosinophils/100 WBC (Bld) 4.1 % Normal [facility] Comment on above: Order Comment: Speci men Type: BLOOD SPECIMENOrdering Facility: [facility] Address: [address] [place] [address] Performed By: #### 5 7021-8 ####[facility] LABCLIA [id number] [place] [address] Erythrocyte distribution width (RBC) [Ratio] 24.6 % High 11.5 - 15.0 % [facility] Erythrocyte distribution width (RBC) [Ratio] 24.6 % High 11.5-15.0 [facility] Comment on above: Order Comment: Speci men Type: BLOOD SPECIMENOrdering Facility: [facility] Address: [address] [place] [address] Performed By: #### 5 7021-8 ####[facility] LABIA [id number] [place] [address] Hematocrit (Bld) [Volume fraction] 43.4 % 36.0 - 46.0 % [facility] Hematocrit (Bld) [Volume fraction] 43.4 % Normal 36.0-46.0 [facility] Comment on above: Order Comment: Speci men Type: BLOOD SPECIMENOrdering Facility: [facility] Address: [address] [place] [address] Performed By: #### 5 7021-8 ####[facility] LABCLIA [id number] [place] [address] Hemoglobin (Bld) [Mass/Vol] 13.4 g/dL 11.5 - 15.5 g/dL [facility] Hemoglobin (Bld) [Mass/Vol] 13.4 g/dL Normal 11.5-15.5 [facility] Comment on above: Order Comment: Speci men Type: BLOOD SPECIMENOrdering Facility: [facility] Address: [address] [place] [address] Performed By: #### 5 7021-8 ####[facility] LABCLIA [id number] [place] [address] Immature Gran % 0.5 % [facility] IMMATURE GRAN % 0.5 % Normal [facility] Comment on above: Order Comment: Speci men Type: BLOOD SPECIMENOrdering Facility: [facility] Address: [address] [place] [address] Performed By: #### 5 7021-8 ####[facility] LABCLIA [id number] [place] [address] IMMATURE GRAN ABS 0.03 k/uL Normal <0.10 [facility] Comment on above: Order Comment: Speci men Type: BLOOD SPECIMENOrdering Facility: [facility] Address: [address] [place] [address] Performed By: #### 5 7021-8 ####[facility] LABCLIA [id number] [place] [address] Lymphocytes (Bld) [#/Vol] 1.30 10*3/uL 1.00 - 4.00 k/uL [facility] Lymphocytes (Bld) [#/Vol] 1.30 10*3/uL Normal 1.00-4.00 [facility] Comment on above: Order Comment: Speci men Type: BLOOD SPECIMENOrdering Facility: [facility] Address: [address] [place] [address] Performed By: #### 5 7021-8 ####[facility] LABCLIA [id number] [place] [address] Lymphocytes/100 WBC (Bld) 23.2 % [facility] Lymphocytes/100 WBC (Bld) 23.2 % Normal [facility] Comment on above: Order Comment: Speci men Type: BLOOD SPECIMENOrdering Facility: [facility] Address: [address] [place] [address] Performed By: #### 5 7021-8 ####[facility] LABIA [id number] [place] [address] MCH (RBC) [Entitic mass] 25.3 pg Low 26.0 - 34.0 pg [facility] MCH (RBC) [Entitic mass] 25.3 pg Low 26.0-34.0 [facility] Comment on above: Order Comment: Speci men Type: BLOOD SPECIMENOrdering Facility: [facility] Address: [address] [place] [address] Performed By: #### 5 7021-8 ####[facility] LABIA [id number] [place] [address] MCHC (RBC) [Mass/Vol] 30.9 g/dL 30.5 - 36.0 g/dL [facility] MCHC (RBC) [Mass/Vol] 30.9 g/dL Normal 30.5-36.0 [facility] Comment on above: Order Comment: Speci men Type: BLOOD SPECIMENOrdering Facility: [facility] Address: [address] [place] [address] Performed By: #### 5 7021-8 ####[facility] LABIA [id number] [place] [address] MCV (RBC) [Entitic vol] 81.9 fL 80.0 - 100.0 fL [facility] MCV (RBC) [Entitic vol] 81.9 fL Normal 80.0-100.0 [facility] Comment on above: Order Comment: Speci men Type: BLOOD SPECIMENOrdering Facility: [facility] Address: [address] [place] [address] Performed By: #### 5 7021-8 ####[facility] LABCLIA [id number] [place] [address] Monocytes (Bld) [#/Vol] 0.52 10*3/uL <0.87 k/uL [facility] Monocytes (Bld) [#/Vol] 0.52 10*3/uL Normal <0.87 [facility] Comment on above: Order Comment: Speci men Type: BLOOD SPECIMENOrdering Facility: [facility] Address: [address] [place] [address] Performed By: #### 5 7021-8 ####[facility] LABCLIA [id number] [place] [address] Monocytes/100 WBC (Bld) 9.3 % [facility] Monocytes/100 WBC (Bld) 9.3 % Normal [facility] Comment on above: Order Comment: Speci men Type: BLOOD SPECIMENOrdering Facility: [facility] Address: [address] [place] [address] Performed By: #### 5 7021-8 ####[facility] LABIA [id number] [place] [address] Neutrophils (Bld) [#/Vol] 3.47 10*3/uL 1.45 - 7.50 k/uL [facility] Neutrophils (Bld) [#/Vol] 3.47 10*3/uL Normal 1.45-7.50 [facility] Comment on above: Order Comment: Speci men Type: BLOOD SPECIMENOrdering Facility: [facility] Address: [address] [place] [address] Performed By: #### 5 7021-8 ####[facility] LABIA [id number] [place] [address] Neutrophils/100 WBC (Bld) 62.0 % [facility] Neutrophils/100 WBC (Bld) 62.0 % Normal [facility] Comment on above: Order Comment: Speci men Type: BLOOD SPECIMENOrdering Facility: [facility] Address: [address] [place] [address] Performed By: #### 5 7021-8 ####[facility] LABIA [id number] [place] [address] Nucleated RBC (Bld) [#/Vol] 10*3/uL <0.01 k/uL [facility] Nucleated RBC (Bld) [#/Vol] 10*3/uL Normal <0.01 [facility] Comment on above: Order Comment: Speci men Type: BLOOD SPECIMENOrdering Facility: [facility] Address: [address] [place] [address] Performed By: #### 5 7021-8 ####[facility] LABIA [id number] [place] [address] Nucleated RBC/100 WBC (Bld) [Ratio] 0.0 /100 WBC [facility] Nucleated RBC/100 WBC (Bld) [Ratio] 0.0 /100 WBC Normal [facility] Comment on above: Order Comment: Speci men Type: BLOOD SPECIMENOrdering Facility: [facility] Address: [address] [place] [address] Performed By: #### 5 7021-8 ####[facility] LABIA [id number] [place] [address] Platelet mean volume (Bld) [Entitic vol] 9.9 fL 9.0 - 12.7 fL [facility] in Platelet mean volume (Bld) [Entitic vol] 9.9 fL Normal 9.0-12.7 [facility] Comment on above: Order Comment: Speci men Type: BLOOD SPECIMENOrdering Facility: [facility] Address: [address] [place], [place] [address] Performed By: #### 5 7021-8 ####[facility] LABIA [id number] [place] [address] Platelets (Bld) [#/Vol] 175 10*3/uL 150 - 400 k/uL [facility] Platelets (Bld) [#/Vol] 175 10*3/uL Normal 150-400 [facility] Comment on above: Order Comment: Speci men Type: BLOOD SPECIMENOrdering Facility: [facility] Address: [address] [place] [address] Performed By: #### 5 7021-8 ####[facility] LABIA [id number] [place] [address] RBC (Bld) [#/Vol] 5.30 10*6/uL High 3.90 - 5.2 0 m/uL [facility] RBC (Bld) [#/Vol] 5.30 10*6/uL High 3.90-5.20 [facility] Comment on above: Order Comment: Speci men Type: BLOOD SPECIMENOrdering Facility: [facility] Address: [address] [place] [address] Performed By: #### 5 7021-8 ####[facility] LABIA [id number] [place] [address] WBC (Bld) [#/Vol] 5.60 10*3/uL 3.70 - 11. 00 k/uL [facility] WBC (Bld) [#/Vol] 5.60 10*3/uL Normal 3.70-11.00 [facility] Comment on above: Order Comment: Speci men Type: BLOOD SPECIMENOrdering Facility: [facility] Address: [address] [place] [address] Performed By: #### 5 7021-8 ####[facility] LABIA [id number] [place] [address] Estefany 09-26-2021 CNOVS Visit (SP) Office ([facility]) NINA ESCALONA ([id number]) 1935 F Date Time Provider Department 09/26/21 [...] which included preparing to see the patient, [id number] patient care, completing clinical documentation, obtaining and/or reviewing separately obtained history, performing a medically appropriate examination, counseling and educating the patient/family/careg iver, ordering medications, tests, or procedures, independently interpreting results (not separately reported) and communicating results to the patient/family/careg iver. CC: Erik Zimmerman Referring Provider: BINH HERNANDEZ [[id number]] Allergies As of Date: 09/26/2021 Noted Allergy Reaction EYE DROPS RELIEF 11/25/2013 16 - Unknown Comments: Glaucoma eye drops PREDNISONE 11/25/2013 14 - Other: See Comments Comments: Palpitations, sob Date Reviewed: 09/26/2021 Reviewed by: Sade Padilla Ma - Fully Assessed Reason for Visit: Anemia [6] Primary Visit Diagnosis:Iron deficiency anemia due to chronic blood loss [D50.0] Order(s):CBC + DIFF [SQCBCDIF] Order #: [id number] FUTURE IRON + TIBC [SQIRON] Order #: [id number] FUTURE FERRITIN BLD [SQFERR] Order #: [id number] FUTURE famotidine (PEPCID) 20 mg tabletTake 1 tablet by mouth twice daily.Disp: 60 tabletRfl: 3 CBC + DIFF [SQCBCDIF] Order #: [id number] FUTURE IRON + TIBC [SQIRON] Order #: [id number] FUTURE FERRITIN BLD [SQFERR] Order #: [id number] FUTURE Disposition: Return in about 6 weeks (around 11/07/2021). Follow-up and Disposition History for Encounter Date Provider Department Center 09/26/2021 [id number] HERNANDEZ Prescriptions as of 09/26/2021 - aspirin 81 mg chewable tablet Take 81 mg by mouth once daily. - famotidine (PEPCID) 20 mg tablet Take 1 tablet by mouth twice daily. - latanoprost (XALATAN) 0.005 % ophthalmic solution INSTILL 1 DROP RIGHT EYE [place] (more content not included)... Normal [facility] Ferritin SerPl-nc 2021 Ferritin [Mass/Vol] 116.0 ng/mL Normal 14.7-205.1 [facility] Comment on above: Order Comment: Speci men Type: BLOOD SPECIMENOrdering Facility: [facility] Address: [address] [place] [address] Performed By: #### 5 0190-8, 6-4 ####[facility] LABIA [id number] [address] [place] Iron and Iron binding capaci [facility] 09-26-2021 Iron [Mass/Vol] 39 ug/dL Low 41-186 [facility] Comment on above: Order Comment: Speci men Type: BLOOD SPECIMENOrdering Facility: [facility] Address: [address] [place] [address] Performed By: #### 5 0190-8, 6-4 ####[facility] LABCLIA [id number] [address] [place] Iron binding capacity [Mass/Vol] 348 ug/dL Normal 232-386 [facility] Comment on above: Order Comment: Speci men Type: BLOOD SPECIMENOrdering Facility: [facility] Address: [address] [place] [address] Performed By: #### 5 0190-8, 2276-4 ####[facility] LABCLIA [id number] [address] [facility] Iron/TIBC [Molar ratio] 11.2 % Low 15.0-57.0 [facility] Comment on above: Order Comment: Speci men Type: BLOOD SPECIMENOrdering Facility: [facility] Address: [address] [place] [address] Performed By: #### 5 0190-8, 2276-4 ####[facility] LABCLIA [id number] [address] [place] PROF CHEM 8 (BAS METB)on Anion gap [Moles/Vol] 12.6 mmol/L Normal [facility] Comment on above: Performed By: #### B MP ####[facility] [address] [place], [place] [address]Dr. Devorah James Calcium [Mass/Vol] 8.4 mg/dL Critically low 8.5-10.1 [facility] Comment on above: Performed By: #### B MP ####[facility] [address] [place], [place] [address]Dr. Devorah James Chloride [Moles/Vol] 104 mmol/L Normal 98-107 [facility] Comment on above: Performed By: #### B MP ####[facility] [address] [place] [address]Dr. Devorah James CO2 [Moles/Vol] 25.8 mmol/L Normal 21.0-32.0 [facility] Comment on above: Performed By: #### B MP ####[facility] [address] [place], [place] [address]Dr. Devorah James Creatinine [Mass/Vol] 0.96 mg/dL Normal 0.55-1.02 [facility] Comment on above: Performed By: #### B MP ####[facility] [address] [place] [address]Dr. Devorah James EGFR-AF CITIZEN [place] >60 Normal >=60 [facility] Comment on above: Performed By: #### B MP ####[facility] [address] [place] [address]Dr. Devorah James EGFR-NON AF CITIZEN OF [place] 55 mL/min/1.73m2 Critically low >=60 [facility] Comment on above: Performed By: #### B MP ####[facility] [address] [place] [address]Dr. Devorah James Glucose [Mass/Vol] 74 mg/dL Normal 74-106 [facility] Comment on above: Performed By: #### B MP ####[facility] [address] [place] [address]Dr. Devorah James Potassium [Moles/Vol] 4.4 mmol/L Normal 3.5-5.1 [facility] Comment on above: Performed By: #### B MP ####[facility] [address] [place] [address]Dr. Devorah James Sodium [Moles/Vol] 138 mmol/L Normal 136-145 [facility] Comment on above: Performed By: #### B MP ####[facility] [address] [place] [address]DrDarvin James Urea nitrogen [Mass/Vol] 16.0 mg/dL Normal 7.0-18.0 [facility] Comment on above: Performed By: #### B MP ####[facility] [address] [place] [address]Dr. Devorah James Urea nitrogen/Creatinine [Mass ratio] 16.7 mg/mg Normal [facility] Comment on above: Performed By: #### B MP ####[facility] [address] [place] [address]DrDarvin James VITAMIN D 25 OHon 09-20-2021 VIT D 25-OH 51.6 ng/mL Normal [facility] Comment on above: Performed By: #### V ITAD #### [facility] [address] [address] [address] Devorah James VIT D RANGES SEE BELOW Normal [facility] Comment on above: Result Comment: <20 ng/mL Vit D deficient 20 - <30 ng/mL Vit D insufficient 30 - 100 ng/mL Vit D sufficient >100 ng/mL Potential Toxicity Performed By: #### V ITAD #### [facility] [address] [address] [address] Devorah James LACTOFERRIN FECAL QUANTon Lactoferrin, Fecal, Quant. 4.46 ug/mL(g) Normal 0.00-7.24 [facility] Comment on above: Result Comment: . Baseline [...] (IBS). Performed By: #### L ACTFQ #### [facility] [address] [address] [address] Devorah James C. DIFF PCRon 09-02-2021 C. DIFFICILE PCR Negative Normal NEGATIVE [facility] Comment on above: Performed By: #### C DIFPOC #### [facility] [address] [place], [place] [address] Dr. Devorah James OCC BLD IMMUNO SCREENon OCCULT BLOOD Negative Normal NEGATIVE [facility] Comment on above: Performed By: #### O BSCRN ####[facility] [address] [place] [address]Dr. Devorah James MG MAMM SCREEN 3D VALERIY CADon 08-04-2021 MG MAMM SCREEN 3D VALERIY CAD Patient: NINA ESCALONA Exam Date: 08/04/2021 : 1935 Gender:F Ordering : DR ERIK ZIMMERMAN D.O. Admission #: [id number] Family : Order #: [id number] CLICK HERE TO VIEW EXAM RADIOLOGY REPORT [...] panc/liver cancer at age 74. LOCATION: [facility] BREAST COMPOSITION: Scattered areas fibroglandular density. FINDINGS: [...] Aviles M.D. on 08/04/2021 at 13:54 Normal [facility] CNOVSPon 07-26-2021 CNOVSP Visit (SP) Office ([facility]) NINA ESCALONA ([id number]) 1935 F Date Time Provider Department 07/26/21 [...] which included preparing to see the patient, kfea-[id number] patient care, completing clinical documentation, obtaining and/or reviewing separately obtained history, performing a medically appropriate examination, counseling and educating the patient/family/careg iver, ordering medications, tests, or procedures, independently interpreting results (not separately reported) and communicating results to the patient/family/careg iver. CC: Erik Zimmerman Referring Provider: BINH HERNANDEZ [[id number]] Allergies As of Date: 07/26/2021 Noted Allergy [...] for Encounter Date Provider Department Center 07/26/2021 [id number] HERNANDEZ [facility] Prescriptions as of 07/26/2021 - latanoprost (XALATAN) [...] (HCC) [M31.4] (more content not included)... Normal [facility] [place] 07-18-2021 CNPN Telephone ([place]) NINA ESCALONA ([id number]) 1935 F Date Time Provider Department 07/18/21 [...] Status:Closed by CHARISMA HENDERSON on 07/18/21 Normal [facility] CBC AUTO DIFFon 07-12-2021 BASO # 0.1 103/ul Normal 0.0-0.1 [facility] Comment on above: Performed By: #### C BC #### [facility] [address] [place] [address] Dr. Devorah James Basophils/100 WBC (Bld) 1.1 % Normal 0.2-2.0 [facility] Comment on above: Performed By: #### C BC #### [facility] [address] [place] [address] Dr. Devorah James EO # 0.3 103/ul Normal 0.0-0.7 [facility] Comment on above: Performed By: #### C BC #### [facility] [address] [place] [address] Dr. Devorah James Eosinophils/100 WBC (Bld) 4.8 % Normal 0.9-7.0 [facility] Comment on above: Performed By: #### C BC #### [facility] [address] [place] [address] Dr. Devorah James Erythrocyte distribution width (RBC) [Ratio] 24.4 % Critically high 11.0-15.0 [facility] Comment on above: Performed By: #### C BC #### [facility] [address] [place] [address] Dr. Devorah James Hematocrit (Bld) [Volume fraction] 35.0 % Critically low 36.0-48.0 [facility] Comment on above: Performed By: #### C BC #### [facility] [address] [place] [address] Dr. Devorah James Hemoglobin (Bld) [Mass/Vol] 9.6 g/dL Critically low 12.0-16.0 [facility] Comment on above: Performed By: #### C BC #### [facility] [address] [place] [address] Dr. Devorah James IG # 0.02 10e3/ul Normal 0.00-0.03 [facility] Comment on above: Performed By: #### C BC #### [facility] [address] [place] [address] Dr. Devorah James IG % 0.4 % Normal 0.0-0.5 [facility] Comment on above: Performed By: #### C BC #### [facility] [address] [place] [address] Dr. Devorah James LYMPH # 1.4 103/ul Normal 1.2-3.8 [facility] Comment on above: Performed By: #### C BC #### [facility] [address] [place] [address] Dr. Devorah James Lymphocytes/100 WBC (Bld) 24.7 % Normal 20.5-60.0 [facility] Comment on above: Performed By: #### C BC #### [facility] [address] [place] [address] Dr. Devorah James MANUAL DIFF REQ NO Normal [facility] Comment on above: Performed By: #### C BC #### [facility] [address] [place] [address] Dr. Devorah James MCH (RBC) [Entitic mass] 20.2 pg Critically low 26.7-34.0 [facility] Comment on above: Performed By: #### C BC #### [facility] [address] [place] [address] Dr. Devorah James MCHC (RBC) [Mass/Vol] 27.4 g/dL Critically low 29.9-35.2 [facility] Comment on above: Performed By: #### C BC #### [facility] [address] [place] [address] Dr. Devorah James MCV (RBC) [Entitic vol] 73.7 fL Critically low 81.0-99.0 [facility] Comment on above: Performed By: #### C BC #### [facility] [address] [place] [address] Dr. Devorah James MONO # 0.6 103/ul Normal 0.3-0.8 [facility] Comment on above: Performed By: #### C BC #### [facility] [address] [place] [address] Dr. Devorah James Monocytes/100 WBC (Bld) 11.2 % Normal 1.7-12.0 [facility] Comment on above: Performed By: #### C BC #### [facility] [address] [place] [address] Dr. Devorah James NEUT # 3.2 103/ul Normal 1.4-6.5 [facility] Comment on above: Performed By: #### C BC #### [facility] [address] [place] [address] Dr. Devorah James Neutrophils/100 WBC (Bld) 57.8 % Normal 43.0-75.0 [facility] Comment on above: Performed By: #### C BC #### [facility] [address] [place] [address] Dr. Devorah James Platelet mean volume (Bld) [Entitic vol] 10.2 fL Normal 9.5-13.5 [facility] Comment on above: Performed By: #### C BC #### [facility] [address] [place] [address] Dr. Devorah James PLT 212 103/ul Normal 150-450 [facility] Comment on above: Performed By: #### C BC #### [facility] [address] [place] [address] Dr. Devorah James RBC 4.75 106/ul Normal 4.20-5.40 [facility] Comment on above: Result Comment: hypo chromic 2+, anisocytosis, microcytic Performed By: #### C BC #### [facility] [address] [place] [address] Dr. Devorah James WBC 5.5 103/ul Normal 4.0-11.0 [facility] Comment on above: Performed By: #### C BC #### [facility] [address] [place] [address] Dr. Devorah James FERRITINon 07-12-2021 Ferritin [Mass/Vol] 86.0 ng/mL Normal 8.0-252.0 [facility] Comment on above: Performed By: #### F ERR, FETIBC #### [facility] [address] [place] [address] Dr. Devorah James IRON AND TIBCon 07-12-2021 % SATURATION 6.1 % Normal [facility] Comment on above: Performed By: #### F ERR, FETIBC #### [facility] [address] [place] [address] Dr. Devorah James Iron [Mass/Vol] 24.0 ug/dL Critically low 50.0-170.0 [facility] Comment on above: Performed By: #### F ERR, FETIBC #### [facility] [address] [place] [address] Dr. Devorah James TIBC DIRECT 396.0 ug/dL Normal 250.0-450.0 [facility] Comment on above: Performed By: #### F ERR, FETIBC #### [facility] [address] [place] [address] Dr. Devorah Lau 06-24-2021 CNPN Telephone ([facility]AS[place]) NINA ESCALONA ([id number]) 1935 F Date Time Provider Department 06/24/21 [...] call if any questions/concerns. Charisma Henderson RN Allergies As of Date: 06/24/2021 Noted [...] Encounter Status:Closed by CHARISMA HENDERSON on 06/24/21 Normal [facility] CNPZoraida [facility] NINA ESCALONA ([id number]) 1935 F Date Time Provider Department 06/16/21 DARY BRADEN During your visit today, we recorded the following information about you: Allergies As of Date: 06/16/2021 Noted Allergy Reaction EYE DROPS RELIEF 11/25/2013 16 - Unknown Comments: Glaucoma eye drops PREDNISONE 11/25/2013 14 - Other: See Comments Comments: Palpitations, sob Date Reviewed: 06/14/2021 Reviewed by: Johnna Hernandez-LINCOLN Goodwin - Fully Assessed Reason for Visit: Medication [...] Status:Closed by DARY BRADEN on 06/28/21 Normal [facility] CBC W Auto Differential pane l (Bld)on 06-14-2021 Abs Immature Gran <0.03 <0.10 k/uL [facility] Basophils (Bld) [#/Vol] 0.06 10*3/uL <0.11 k/uL [facility] Basophils (Bld) [#/Vol] 0.06 10*3/uL Normal <0.11 [facility] Comment on above: Order Comment: Speci men Type: BLOOD SPECIMENOrdering Facility: [facility] Address: [address] [place] [phone] Performed By: #### 1 4196-0, 21541-1 ####[facility] LABCLIA [id number] [place] [address] Basophils/100 WBC (Bld) 1.2 % [facility] Basophils/100 WBC (Bld) 1.2 % Normal [facility] Comment on above: Order Comment: Speci men Type: BLOOD SPECIMENOrdering Facility: [facility] Address: [address] [place] [phone] Performed By: #### 1 4196-0, 92759-2 ####[facility] LABCLIA [id number] [place] [address] Differential cell count method Nom (Bld) Auto [facility] Differential cell count method Nom (Bld) Auto Normal [facility] Comment on above: Order Comment: Speci men Type: BLOOD SPECIMENOrdering Facility: [facility] Address: [address] [place] [address] Performed By: #### 1 4196-0, 94225-5 ####[facility] LABCLIA [id number] [place] [address] Eosinophils (Bld) [#/Vol] 0.18 10*3/uL <0.46 k/uL [facility] Eosinophils (Bld) [#/Vol] 0.18 10*3/uL Normal <0.46 [facility] Comment on above: Order Comment: Speci men Type: BLOOD SPECIMENOrdering Facility: [facility] Address: [address] [place] [address] Performed By: #### 1 4196-0, 99960-6 ####[facility] LABCLIA [id number] [place] [address] Eosinophils/100 WBC (Bld) 3.6 % [facility] Eosinophils/100 WBC (Bld) 3.6 % Normal [facility] Comment on above: Order Comment: Speci men Type: BLOOD SPECIMENOrdering Facility: [facility] Address: [address] [place] [address] Performed By: #### 1 4196-0, 40466-6 ####[facility] LABIA [id number] [place] [address] Erythrocyte distribution width (RBC) [Ratio] 18.1 % High 11.5 - 15.0 % [facility] Erythrocyte distribution width (RBC) [Ratio] 18.1 % High 11.5-15.0 [facility] Comment on above: Order Comment: Speci men Type: BLOOD SPECIMENOrdering Facility: [facility] Address: [address] [place] [address] Performed By: #### 1 4196-0, 61483-6 ####[facility] LABCLIA [id number] [place] [address] Hematocrit (Bld) [Volume fraction] 32.6 % Low 36.0 - 46.0 % [facility] Hematocrit (Bld) [Volume fraction] 32.6 % Low 36.0-46.0 [facility] Comment on above: Order Comment: Speci men Type: BLOOD SPECIMENOrdering Facility: [facility] Address: [address] [place] [address] Performed By: #### 1 4196-0, 22078-3 ####[facility] LABIA [id number] [place] [address] Hemoglobin (Bld) [Mass/Vol] 8.9 g/dL Low 11.5 - 15.5 g/dL [facility] Hemoglobin (Bld) [Mass/Vol] 8.9 g/dL Low 11.5-15.5 [facility] Comment on above: Order Comment: Speci men Type: BLOOD SPECIMENOrdering Facility: [facility] Address: [address] [place] [address] Performed By: #### 1 4196-0, 11354-7 ####[facility] LABW[facility] [id number] [place] [address] Immature Gran % 0.4 % [facility] IMMATURE GRAN % 0.4 % Normal [facility] Comment on above: Order Comment: Speci men Type: BLOOD SPECIMENOrdering Facility: [facility] Address: [address] [place] [address] Performed By: #### 1 4196-0, 58061-7 ####[facility] LABIA [id number] [place] [address] IMMATURE GRAN ABS <0.03 Normal <0.10 [facility] Comment on above: Order Comment: Speci men Type: BLOOD SPECIMENOrdering Facility: [facility] Address: [address] [place] [address] Performed By: #### 1 4196-0, 50747-6 ####[facility] LABCLIA [id number] [place] [address] Lymphocytes (Bld) [#/Vol] 1.07 10*3/uL 1.00 - 4.00 k/uL [facility] Lymphocytes (Bld) [#/Vol] 1.07 10*3/uL Normal 1.00-4.00 [facility] Comment on above: Order Comment: Speci men Type: BLOOD SPECIMENOrdering Facility: [facility] Address: [address] [place] [address] Performed By: #### 1 4196-0, 31913-1 ####[facility] LABCLIA [id number] [place] [address] Lymphocytes/100 WBC (Bld) 21.6 % [facility] Lymphocytes/100 WBC (Bld) 21.6 % Normal [facility] Comment on above: Order Comment: Speci men Type: BLOOD SPECIMENOrdering Facility: [facility] Address: [address] [place] [address] Performed By: #### 1 4196-0, 65718-1 ####[facility] LABCLIA [id number] [place] [address] MCH (RBC) [Entitic mass] 19.0 pg Low 26.0 - 34.0 pg [facility] MCH (RBC) [Entitic mass] 19.0 pg Low 26.0-34.0 [facility] Comment on above: Order Comment: Speci men Type: BLOOD SPECIMENOrdering Facility: [facility] Address: [address] [place] [address] Performed By: #### 1 4196-0, 62542-4 ####[facility] LABCLIA [id number] [place] [address] MCHC (RBC) [Mass/Vol] 27.3 g/dL Low 30.5 - 36.0 g/dL [facility] MCHC (RBC) [Mass/Vol] 27.3 g/dL Low 30.5-36.0 [facility] Comment on above: Order Comment: Speci men Type: BLOOD SPECIMENOrdering Facility: [facility] Address: [address] [place] [address] Performed By: #### 1 4196-0, 61282-6 ####[facility] LABCLIA [id number] [place] [address] MCV (RBC) [Entitic vol] 69.7 fL Low 80.0 - 100.0 fL [facility] MCV (RBC) [Entitic vol] 69.7 fL Low 80.0-100.0 [facility] Comment on above: Order Comment: Speci men Type: BLOOD SPECIMENOrdering Facility: [facility] Address: [address] [place] [address] Performed By: #### 1 4196-0, 02952-6 ####[facility] LABCLIA [id number] [place] [address] Monocytes (Bld) [#/Vol] 0.68 10*3/uL <0.87 k/uL [facility] Monocytes (Bld) [#/Vol] 0.68 10*3/uL Normal <0.87 [facility] Comment on above: Order Comment: Speci men Type: BLOOD SPECIMENOrdering Facility: [facility] Address: [address] [place], [place] [address] Performed By: #### 1 4196-0, 56233-5 ####[facility] LABCLIA [id number] [place] [address] Monocytes/100 WBC (Bld) 13.7 % [facility] Monocytes/100 WBC (Bld) 13.7 % Normal [facility] Comment on above: Order Comment: Speci men Type: BLOOD SPECIMENOrdering Facility: [facility] Address: [address] [place] [address] Performed By: #### 1 4196-0, 10469-4 ####[facility] LABCLIA [id number] [place] [address] Neutrophils (Bld) [#/Vol] 2.94 10*3/uL 1.45 - 7.50 k/uL [facility] Neutrophils (Bld) [#/Vol] 2.94 10*3/uL Normal 1.45-7.50 [facility] Comment on above: Order Comment: Speci men Type: BLOOD SPECIMENOrdering Facility: [facility] Address: [address] [place] [address] Performed By: #### 1 4196-0, 96730-4 ####[facility] LABCLIA [id number] [place] [address] Neutrophils/100 WBC (Bld) 59.5 % [facility] Neutrophils/100 WBC (Bld) 59.5 % Normal [facility] Comment on above: Order Comment: Speci men Type: BLOOD SPECIMENOrdering Facility: [facility] Address: [address] [place] [address] Performed By: #### 1 4196-0, 91027-3 ####[facility] LABCLIA [id number] [place] [address] Nucleated RBC (Bld) [#/Vol] 10*3/uL <0.01 k/uL [facility] Nucleated RBC (Bld) [#/Vol] 10*3/uL Normal <0.01 [facility] Comment on above: Order Comment: Speci men Type: BLOOD SPECIMENOrdering Facility: [facility] Address: [address] [place], [place] [address] Performed By: #### 1 4196-0, 48160-2 ####[facility] LABCLIA [id number] [place] [address] Nucleated RBC/100 WBC (Bld) [Ratio] 0.0 /100 WBC [facility] Nucleated RBC/100 WBC (Bld) [Ratio] 0.0 /100 WBC Normal [facility] Comment on above: Order Comment: Speci men Type: BLOOD SPECIMENOrdering Facility: [facility] Address: [address] [place] [address] Performed By: #### 1 4196-0, 68551-5 ####[facility] LABCLIA [id number] [place] [address] Platelet mean volume (Bld) [Entitic vol] 10.4 fL 9.0 - 12.7 fL [facility] Platelet mean volume (Bld) [Entitic vol] 10.4 fL Normal 9.0-12.7 [facility] Comment on above: Order Comment: Speci men Type: BLOOD SPECIMENOrdering Facility: [facility] Address: [address] [place] [address] Performed By: #### 1 4196-0, 76919-3 ####[facility] LABCLIA [id number] [place] [address] Platelets (Bld) [#/Vol] 230 10*3/uL 150 - 400 k/uL [facility] Platelets (Bld) [#/Vol] 230 10*3/uL Normal 150-400 [facility] Comment on above: Order Comment: Speci men Type: BLOOD SPECIMENOrdering Facility: [facility] Address: [address] [place] [address] Result Comment: Samp le checked for clot Performed By: #### 1 4196-0, 62180-1 ####[facility] LABIA [id number] [place] [address] RBC (Bld) [#/Vol] 4.68 10*6/uL 3.90 - 5.2 0 m/uL [facility] RBC (Bld) [#/Vol] 4.68 10*6/uL Normal 3.90-5.20 [facility] Comment on above: Order Comment: Speci men Type: BLOOD SPECIMENOrdering Facility: [facility] Address: [address] [place] [address] Performed By: #### 1 4196-0, 41357-9 ####[facility] LABCLIA [id number] [place] [address] WBC (Bld) [#/Vol] 4.95 10*3/uL 3.70 - 11. 00 k/uL [facility] WBC (Bld) [#/Vol] 4.95 10*3/uL Normal 3.70-11.00 [facility] Comment on above: Order Comment: Speci men Type: BLOOD SPECIMENOrdering Facility: [facility] Address: [address] [place] [address] Performed By: #### 1 4196-0, 36966-1 ####[facility] LABCLIA [id number] [place] [address] CNOVSPon 06-14-2021 CNOVSP Visit (SP) Office ([place]) NINA ESCALONA ([id number]) 1935 F Date Time Provider Department 06/14/21 11:00 AM BINH HERNANDEZ During your visit today, we [...] which included preparing to see the patient, [id number] patient care, completing clinical documentation, obtaining and/or reviewing separately obtained history, performing a medically appropriate examination, counseling and educating the patient/family/careg iver, ordering medications, tests, or procedures, independently interpreting results (not separately reported) and communicating results to the patient/family/careg iver. CC: Erik Zimmerman Referring Provider: ERIK ZIMMERMAN [[id number]] Allergies As of Date: 06/14/2021 Noted Allergy [...] [D50.0] Order(s):CBC + DIFF [SQCBCDIF] Order #: [id number] FUTURE COMP METABOLIC PANEL [SQCMP] Order #: [id number] FUTURE IRON + TIBC [SQIRON] Order #: [id number] FUTURE FERRITIN BLD [SQFERR] Order #: [id number] FUTURE RETIC COUNT [SQRETIC] Order #: [id number] FUTURE CONSULT TO GASTROENTEROLOGY [90 (more content not included)... Normal [facility] Stoney 06-14-2021 CNPN Telephone (NCCAP) NINA ESCALONA ([id number]) 1935 F Date Time Provider Department 06/14/21 BINH HERNANDEZ During your visit today, we recorded the following information about you: Lilian Virgilio Valdez Sec 06/14/2021 12:33 PM Signed Patient is being referred to Dr. Espana. Their office will call the patient to schedule this appt. Jackie, Please fax records to his office. Info has been printed for faxing and is in your mailbox. Thank you Devi Lawrence [facility] 06/14/2021 1:14 PM Signed Records faxed to [...] Status:Closed by LILIAN ROGERS on 06/22/21 Normal [facility] Comprehensive metabolic 2000 panelon 06-14-2021 Albumin [Mass/Vol] 4.6 g/dL 3.9 - 4.9 g/dL [facility] Albumin [Mass/Vol] 4.6 g/dL Normal 3.9-4.9 [facility] Comment on above: Order Comment: Speci men Type: BLOOD SPECIMENOrdering Facility: [facility] Address: [address] [place] [address] Performed By: #### 2 4323-8 ####[facility] LABCLIA [id number] [place] [address] ALP [Catalytic activity/Vol] 42 U/L 34 - 123 U/L [facility] ALP [Catalytic activity/Vol] 42 U/L Normal 34-123 [facility] Comment on above: Order Comment: Speci men Type: BLOOD SPECIMENOrdering Facility: [facility] Address: [address] [place] [address] Performed By: #### 2 4323-8 ####[facility] LABCLIA [id number] [place] [address] ALT [Catalytic activity/Vol] 12 U/L 7 - 38 U/L [facility] ALT [Catalytic activity/Vol] 12 U/L Normal 7-38 [facility] Comment on above: Order Comment: Speci men Type: BLOOD SPECIMENOrdering Facility: [facility] Address: [address] [place] [address] Performed By: #### 2 4323-8 ####[facility] LABCLIA [id number] [place] [address] Anion gap [Moles/Vol] 8 mmol/L Low 9 - 18 mmol/L [facility] Anion gap [Moles/Vol] 8 mmol/L Low 9-18 [facility] Comment on above: Order Comment: Speci men Type: BLOOD SPECIMENOrdering Facility: [facility] Address: [address] [place] [address] Performed By: #### 2 4323-8 ####[facility] LABIA [id number] [place] [address] AST [Catalytic activity/Vol] 24 U/L 13 - 35 U/L [facility] AST [Catalytic activity/Vol] 24 U/L Normal 13-35 [facility] Comment on above: Order Comment: Speci men Type: BLOOD SPECIMENOrdering Facility: [facility] Address: [address] [place] [address] Performed By: #### 2 4323-8 ####[facility] LABCLIA [id number] [place] [address] Bilirubin [Mass/Vol] 0.3 mg/dL 0.2 - 1 .3 mg/dL [facility] Bilirubin [Mass/Vol] 0.3 mg/dL Normal 0.2-1.3 [facility] Comment on above: Order Comment: Speci men Type: BLOOD SPECIMENOrdering Facility: [facility] Address: [address] [place], [place] [address] Performed By: #### 2 4323-8 ####[facility] LABIA [id number] [place] [address] Calcium [Mass/Vol] 9.5 mg/dL 8.5 - 10. 2 mg/dL [facility] Calcium [Mass/Vol] 9.5 mg/dL Normal 8.5-10.2 [facility] Comment on above: Order Comment: Speci men Type: BLOOD SPECIMENOrdering Facility: [facility] Address: [address] [place] [address] Performed By: #### 2 4323-8 ####[facility] LABCLIA [id number] [place] [address] Chloride [Moles/Vol] 102 mmol/L 97 - 10 5 mmol/L [facility] Chloride [Moles/Vol] 102 mmol/L Normal 97-105 [facility] Comment on above: Order Comment: Speci men Type: BLOOD SPECIMENOrdering Facility: [facility] Address: [address] [place] [address] Performed By: #### 2 4323-8 ####[facility] LABCLIA [id number] [place] [address] CO2 [Moles/Vol] 26 mmol/L 22 - 30 mmol/L [facility] CO2 [Moles/Vol] 26 mmol/L Normal 22-30 [facility] Comment on above: Order Comment: Speci men Type: BLOOD SPECIMENOrdering Facility: [facility] Address: [address] [place] [address] Performed By: #### 2 4323-8 ####[facility] LABCLIA [id number] [place] [id number] Creatinine [Mass/Vol] 0.98 mg/dL High 0.58 - 0.96 mg/dL [facility] Creatinine [Mass/Vol] 0.98 mg/dL High 0.58-0.96 [facility] Comment on above: Order Comment: Speci men Type: BLOOD SPECIMENOrdering Facility: [facility] Address: [address] [place] [address] Performed By: #### 2 4323-8 ####[facility] LABCLIA [id number] [place] [address] Estimated Glomerular Filtration Rate 56 mL/min/1.73m Low >=60 mL/min/1.73m [facility] ESTIMATED GLOMERULAR FILTRATION RATE 56 mL/min/1.73m??? Low >=60 [facility] Comment on above: Order Comment: Nesha parikh Type: BLOOD SPECIMENOrdering Facility: [facility] Address: [address] [place], [place] [address] Result Comment: Kala mated Glomerular Filtration Rate [...] actual GFR. Performed By: #### 2 4323-8 ####[facility] LABCLIA [id number] [place] [address] Glucose [Mass/Vol] 86 mg/dL 74 - 99 mg/dL [facility] Glucose [Mass/Vol] 86 mg/dL Normal 74-99 [facility] Comment on above: Order Comment: Nesha parikh Type: BLOOD SPECIMENOrdering Facility: [facility] Address: [address] [place] [address] Result Comment: The [place] Diabetes Association (ADA) provides guidance for cutoff [...] Standards of Medical Care in Diabetes 2016, [place] [employer]. Diabetes Care. 2016.39(Suppl 1). Performed By: #### 2 4323-8 ####[facility] LABCLIA [id number] [place] [address] Potassium [Moles/Vol] 4.4 mmol/L 3.7 - 5.1 mmol/L [facility] Potassium [Moles/Vol] 4.4 mmol/L Normal 3.7-5.1 [facility] Comment on above: Order Comment: Speci men Type: BLOOD SPECIMENOrdering Facility: [facility] Address: [address] [place] [address] Performed By: #### 2 4323-8 ####[facility] LABCLIA [id number] [place] [address] Protein [Mass/Vol] 6.9 g/dL 6.3 - 8.0 g/dL [facility] Protein [Mass/Vol] 6.9 g/dL Normal 6.3-8.0 [facility] Comment on above: Order Comment: Speci men Type: BLOOD SPECIMENOrdering Facility: [facility] Address: [address] [place] [address] Performed By: #### 2 4323-8 ####[facility] LABCLIA [id number] [place] [address] Sodium [Moles/Vol] 136 mmol/L 136 - 144 mmol/L [facility] Sodium [Moles/Vol] 136 mmol/L Normal 136-144 [facility] Comment on above: Order Comment: Speci men Type: BLOOD SPECIMENOrdering Facility: [facility] Address: [address] [place] [address] Performed By: #### 2 4323-8 ####[facility] LABCLIA [id number] [place] [address] Urea nitrogen [Mass/Vol] 18 mg/dL 7 - 21 mg/dL [facility] Urea nitrogen [Mass/Vol] 18 mg/dL Normal 7-21 [facility] Comment on above: Order Comment: Speci men Type: BLOOD SPECIMENOrdering Facility: [facility] Address: [address] [place] [address] Performed By: #### 2 4323-8 ####[facility] LABCLIA [id number] [place] [address] FERRITIN BLDon 06-14-2021 Ferritin [Mass/Vol] 14.3 ng/mL Low 14.7-205.1 [facility] Comment on above: Order Comment: Speci men Type: BLOOD SPECIMENOrdering Facility: [facility] Address: [address] [place] [address] Performed By: #### F ERR, IRON ####[facility] LABCLIA [id number] [place] [address] [place] IRON + TIBCon 06-14-2021 Iron [Mass/Vol] 16 ug/dL Low 41-186 [facility] Comment on above: Order Comment: Speci men Type: BLOOD SPECIMENOrdering Facility: [facility] Address: [address] [place] [address] Performed By: #### F ERR, IRON ####[facility] LABCLIA [id number] [place] [address] [place] Iron binding capacity [Mass/Vol] 438 ug/dL High 232-386 [facility] Comment on above: Order Comment: Speci men Type: BLOOD SPECIMENOrdering Facility: [facility] Address: [address] [place], [place] [address] Performed By: #### F ERR, IRON ####[facility] LABIA [id number] [place] [address] [place] Iron/TIBC [Molar ratio] 4 % Low 15-57 [facility] Comment on above: Order Comment: Speci men Type: BLOOD SPECIMENOrdering Facility: [facility] Address: [address] [place], [place] [address] Performed By: #### F ERR, IRON ####[facility] LABCLIA [id number] [place] [address] [place] RETIC COUNTon 06-14-2021 Reticulocytes (Bld) [#/Vol] 0.59695 10*3/uL 0.018 - 0.100 M/uL [facility] Retics #on 06-14-2021 Reticulocytes (Bld) [#/Vol] 0.13943 10*3/uL Normal 0.018-0.100 [facility] Comment on above: Order Comment: Speci men Type: BLOOD SPECIMENOrdering Facility: [facility] Address: [address] [place] [address] Performed By: #### 1 4196-0, 01027-8 ####[facility] LABCLIA [id number] [place] [address] Reticulocytes (Bld) [#/Vol]o n 06-14-2021 Reticulocytes/100 RBC (Bld) 1.3 % 0.4 - 2.0 % [facility] Reticulocytes/100 RBC (Bld) 1.3 % Normal 0.4-2.0 [facility] Comment on above: Order Comment: Speci men Type: BLOOD SPECIMENOrdering Facility: [facility] Address: [address] [place] [address] Performed By: #### 1 4196-0, 08613-2 ####[facility] LABCLIA [id number] [place] [address] Social History Date Type Detail Facility Start: 11-16-2021 Tobacco use and exposure Smokeless tobacco non-user [facility] Start: 06-14-2021 End: 11-16-2021 Alcohol intake Current drinker of alcohol (finding) [facility] Start: 06-04-2021 End: 11-16-2021 Exposure to SARS-CoV-2 (event) Not sure [facility] Start: 11-25-2013 End: 08-09-2023 Tobacco smoking status NHIS Never smoked tobacco [facility] Start: 11-25-2013 History SDOH Alcohol Comment wine daily [facility] Start: 1935 Sex Assigned At Not on file C [facility] Start: 1935 Sex Assigned At Female F [facility] Sex Assigned At Sex Assigned At [facility] [place] Other Vital Signs Date Time Vital Sign Value Performing Clinician Facility 08-09-2023 15:17-0400 Body height 140.97 cm DO Erik Ball Work Phone: [facility] 08-09-2023 15:17-0400 Body mass index (BMI) [Ratio] 22.8 kg/m2 DO Erik Ball Work Phone: [facility] 08-09-2023 15:17-0400 Body weight 45.35 kg DO Erik Ball Work Phone: [facility] 06-18-2023 13:23-0400 Body height 140.97 cm DO Erik Ball Work Phone: [facility] 06-18-2023 13:23-0400 Body mass index (BMI) [Ratio] 22.9 kg/m2 DO Erik Ball Work Phone: [facility] 06-18-2023 13:23-0400 Body weight 45.58 kg DO Erik Ball Work Phone: [facility] 06-18-2023 13:23-0400 Diastolic blood pressure 90 mm[Hg] DO Erik Ball Work Phone: [facility] 06-18-2023 13:23-0400 Heart rate 69 /min DO Erik Ball Work Phone: [facility] 06-18-2023 13:23-0400 Respiratory rate 12 /min DO Erik Ball Work Phone: [facility] 06-18-2023 13:23-0400 Systolic blood pressure 152 mm[Hg] DO Erik Ball Work Phone: [facility] 05-18-2023 10:10-0400 Body height 140.97 cm DO Erik Ball Work Phone: [facility] 05-18-2023 10:10-0400 Body mass index (BMI) [Ratio] 23 kg/m2 DO Erik Ball Work Phone: [facility] 05-18-2023 10:10-0400 Body weight 45.81 kg DO Erik Ball Work Phone: [facility] 05-18-2023 10:10-0400 Diastolic blood pressure 87 mm[Hg] DO Erik Ball Work Phone: [facility] 05-18-2023 10:10-0400 Heart rate 73 /min DO Erik Ball Work Phone: [facility] 05-18-2023 10:10-0400 Respiratory rate 12 /min DO Erik Ball Work Phone: [facility] 05-18-2023 10:10-0400 Systolic blood pressure 134 mm[Hg] DO Erik Ball Work Phone: [facility] 05-11-2023 13:50-0500 Body height 140.97 cm DO Erik Ball Work Phone: [facility] 05-11-2023 13:50-0500 Body mass index (BMI) [Ratio] 23.3 kg/m2 DO Erik Ball Work Phone: [facility] 05-11-2023 13:50-0500 Body weight 46.26 kg DO Erik Ball Work Phone: [facility] 05-11-2023 13:50-0500 Diastolic blood pressure 84 mm[Hg] DO Erik Ball Work Phone: [facility] 05-11-2023 13:50-0500 Systolic blood pressure 122 mm[Hg] DO Erik Ball Work Phone: [facility] 02-19-2023 13:30-0500 Body height 140.97 cm Erik Ball Other [place] Other 02-19-2023 13:30-0500 Body mass index (BMI) [Ratio] 23.42 kg/m2 Erik Ball Other [facility] [employer] Other 02-19-2023 13:30-0500 Body weight 46.54 kg Erik Ball Other [place] Other 02-19-2023 13:30-0500 Diastolic blood pressure 84 mm[Hg] Erik Ball Other [facility] Other 02-19-2023 13:30-0500 Respiratory rate 12 /min Erik Ball Other [facility] Other 02-19-2023 13:30-0500 Systolic blood pressure 130 mm[Hg] Erik Ball Other [facility] Other 01-31-2023 14:15-0500 Body height 140.97 cm Erik Ball Other [facility] Other 01-31-2023 14:15-0500 Body mass index (BMI) [Ratio] 23.14 kg/m2 Erik Ball Other [facility] Other 01-31-2023 14:15-0500 Body weight 46 kg Erik Ball Other [facility] Other 01-31-2023 14:15-0500 Diastolic blood pressure 92 mm[Hg] Erik Ball Other [facility] Other 01-31-2023 14:15-0500 Respiratory rate 12 /min Erik Ball Other [facility] Other 01-31-2023 14:15-0500 Systolic blood pressure 150 mm[Hg] Erik Ball Other [facility] Other 10-30-2022 14:30-0400 Body height 140.97 cm Erik Ball Other [facility] Other 10-30-2022 14:30-0400 Body mass index (BMI) [Ratio] 23.64 kg/m2 Erik Ball Other [facility] Other 10-30-2022 14:30-0400 Body weight 46.99 kg Erik Ball Other [facility] Other 10-30-2022 14:30-0400 Diastolic blood pressure 77 mm[Hg] Erik Ball Other [facility] Other 10-30-2022 14:30-0400 Respiratory rate 12 /min Erik Ball Other [facility] Other 10-30-2022 14:30-0400 Systolic blood pressure 122 mm[Hg] Erik Ball Other [facility] Other 08-30-2022 11:45-0400 Body height 140.97 cm Erik Ball Other [facility] Other 08-30-2022 11:45-0400 Body mass index (BMI) [Ratio] 22.91 kg/m2 Erik Ball Other [facility] Other 08-30-2022 11:45-0400 Body weight 45.54 kg Erik Ball Other [facility] Other 08-30-2022 11:45-0400 Diastolic blood pressure 88 mm[Hg] Erik Ball Other [facility] Other 08-30-2022 11:45-0400 Respiratory rate 12 /min Erik Ball Other [facility] Other 08-30-2022 11:45-0400 Systolic blood pressure 135 mm[Hg] Erik Ball Other [facility] Other 05-12-2022 13:30-0500 Body height 140.97 cm Erik Ball Other [facility] Other 05-12-2022 13:30-0500 Body mass index (BMI) [Ratio] 23.96 kg/m2 Erik Ball Other [facility] Other 05-12-2022 13:30-0500 Body weight 47.63 kg Erik Ball Other [facility] Other 05-12-2022 13:30-0500 Diastolic blood pressure 73 mm[Hg] Erik Ball Other [facility] Other 05-12-2022 13:30-0500 Systolic blood pressure 132 mm[Hg] Erik Ball Other [facility] Other 11-16-2021 10:58-0400 Body height 151.1 cm Fiorella Lisa PA-C Work Phone: [facility] 11-16-2021 10:58-0400 Body temperature 97.81 [degF] Fiorella Lisa PA-C Work Phone: [facility] 11-16-2021 10:58-0400 Body weight 48.99 kg Fiorella Lisa PA-C Work Phone: [facility] 11-16-2021 10:58-0400 Diastolic blood pressure 86 mm[Hg] Fiorella Lisa PA-C Work Phone: [facility] 11-16-2021 10:58-0400 Heart rate 74 /min Fiorella Lisa PA-C Work Phone: [facility] 11-16-2021 10:58-0400 Respiratory rate 16 /min Fiorella Lisa PA-C Work Phone: [facility] 11-16-2021 10:58-0400 SaO2% (BldA) [Mass fraction] 99 % Fiorella Lisa PA-C Work Phone: [facility] 11-16-2021 10:58-0400 Systolic blood pressure 143 mm[Hg] Fiorella Gonzalez PA-C Work Phone: [facility] 09-26-2021 13:25-0400 Body height 151.1 cm Binh Hernandez MD Work Phone: [facility] 09-26-2021 13:25-0400 Body temperature 97.9 [degF] Binh Hernandez MD Work Phone: [facility] 09-26-2021 13:25-0400 Body weight 49.44 kg Binh Hernandez MD Work Phone: [facility] 09-26-2021 13:25-0400 Diastolic blood pressure 65 mm[Hg] Binh Hernandez MD Work Phone: [facility] 09-26-2021 13:25-0400 Heart rate 64 /min Binh Hernandez MD Work Phone: [facility] 09-26-2021 13:25-0400 Respiratory rate 16 /min Binh Hernandez MD Work Phone: [facility] 09-26-2021 13:25-0400 SaO2% (BldA) [Mass fraction] 99 % Binh Hernandez MD Work Phone: [facility] 09-26-2021 13:25-0400 Systolic blood pressure 134 mm[Hg] Binh Hernandez MD Work Phone: [facility] 08-22-2021 11:00-0400 Body temperature 96.69 [degF] Chair Samuel Work Phone: [facility] 08-22-2021 11:00-0400 Diastolic blood pressure 58 mm[Hg] Chair [place] Work Phone: [facility] 08-22-2021 11:00-0400 Heart rate 70 /min Chair [place] Work Phone: [facility] 08-22-2021 11:00-0400 Respiratory rate 18 /min Chair [place] Work Phone: [facility] 08-22-2021 11:00-0400 SaO2% (BldA) [Mass fraction] 98 % Chair [place] Work Phone: [facility] 08-22-2021 11:00-0400 Systolic blood pressure 116 mm[Hg] Chair [place] Work Phone: [facility] 08-08-2021 13:29-0400 Diastolic blood pressure 75 mm[Hg] Chair [place] Work Phone: [facility] 08-08-2021 13:29-0400 Heart rate 69 /min Chair [place] Work Phone: [facility] 08-08-2021 13:29-0400 Respiratory rate 18 /min Chair [place] Work Phone: [facility] 08-08-2021 13:29-0400 SaO2% (BldA) [Mass fraction] 98 % Chair [place] Work Phone: [facility] 08-08-2021 13:29-0400 Systolic blood pressure 120 mm[Hg] Chair [place] Work Phone: [facility] 08-08-2021 11:00-0400 Body temperature 97.5 [degF] Chair [place] Work Phone: [facility] 07-26-2021 12:59-0400 Body height 151.1 cm Binh Hernandez MD Work Phone: [facility] 07-26-2021 12:59-0400 Body temperature 97.3 [degF] Binh Hernandez MD Work Phone: [facility] 07-26-2021 12:59-0400 Body weight 49.35 kg Binh Hernandez MD Work Phone: [facility] 07-26-2021 12:59-0400 Diastolic blood pressure 82 mm[Hg] Binh Hernandez MD Work Phone: [facility] 07-26-2021 12:59-0400 Heart rate 64 /min Binh Hernandez MD Work Phone: [facility] 07-26-2021 12:59-0400 Respiratory rate 16 /min Binh Hernandez MD Work Phone: [facility] 07-26-2021 12:59-0400 SaO2% (BldA) [Mass fraction] 99 % Binh Hernandez MD Work Phone: [facility] 07-26-2021 12:59-0400 Systolic blood pressure 113 mm[Hg] Binh Hernandez MD Work Phone: [facility] 06-14-2021 11:22-0400 Body height 151.1 cm Binh Hernandez MD Work Phone: [facility] 06-14-2021 11:22-0400 Body temperature 97 [degF] Binh Hernandez MD Work Phone: [facility] 06-14-2021 11:22-0400 Body weight 48.08 kg Binh Hernandez MD Work Phone: [facility] 06-14-2021 11:22-0400 Diastolic blood pressure 69 mm[Hg] Binh Hernandez MD Work Phone: [facility] 06-14-2021 11:22-0400 Heart rate 71 /min Binh Hernandez MD Work Phone: [facility] 06-14-2021 11:22-0400 Respiratory rate 16 /min Binh Hernandez MD Work Phone: [facility] 06-14-2021 11:22-0400 SaO2% (BldA) [Mass fraction] 90 % Binh Hernandez MD Work Phone: [facility] 06-14-2021 11:22-0400 Systolic blood pressure 126 mm[Hg] Binh Hernandez MD Work Phone: [facility] Clinical Notes 06-14-2021 to 03-28-2023 Note Date & Type Note Facility 03-28-2023 Evaluation note Encounter Date Diagnosis Assessment Notes Mar, Vitamin D deficiency (ICD-10 - E55.9) Mar, Age-related osteoporosis with current pathological fracture with routine healing, subsequent encounter (ICD-10 - M80.00XD) [facility] Other 12-18-2023 Evaluation note* Encounter Date Diagnosis Assessment Notes [...] in bowel habits No melena or hematochezia [facility] Other 11-29-2023 Evaluation note* Encounter Date Diagnosis [...] goal < 135/85 _update in couple days [facility] Other 11-29-2023 Evaluation note* Encounter Date Diagnosis Assessment Notes Treatment Notes Treatment Clinical Notes Jan, Chest wall pain (ICD-10 - R07.89) [facility] Other 08-28-2023 Evaluation note* Encounter Date Diagnosis [...] and may have experienced an adverse reaction [facility] Other 06-28-2023 Evaluation note* Encounter Date Diagnosis [...] anxiety contributes. Reassured, evaluation in ER excluded [employer] involvement. Checking B12, Fe, and Thyroid studies Aug, Anemia in other chronic diseases classified elsewhere (ICD-10 - D63.8) Hx of anemia of unknown etiology. Fe transiently low and replaced w/ IV Fe infusion. Recent Hgb have been normal. No obvious s/s bleeding [facility] Other 04-26-2023 Evaluation note* Encounter Date Diagnosis Assessment Notes Treatment Notes Treatment Clinical Notes Jun, Kyphoscoliosis deformity of spine (ICD-10 - M41.9) Jun, Lumbar spondylosis (ICD-10 - M47.816) [facility] Other 03-10-2023 Evaluation note* Encounter Date Diagnosis [...] May, Other chronic pain (ICD-10 - G89.29) [facility] Other 09-15-2022 Miscellaneous Notes* Telephone Encounter - [...] labs to Dr. Zimmerman. documented in this encounterMem[facility] Miscellaneous Notes* Telephone Encounter - Jewel Richardson [...] office. Fiorella Gonzalez PA-C documented in this encounterMemorial [facility]09-[facility]-2022 NoteHNO ID: [id number] Author: Fiorella Gonzalez PA-C Service: ? Author Type: Physician Electrical Technician Type: Progress Notes Filed: 11/16/2021 11:43 AM [...] her again. Fiorella Gonzalez PA-C CC: Erik [facility]ermanOhio[facility] History of Present illness Narrative* Fiorella Gonzalez [...] PA-C CC: Erik Zimmerman documented in this encounterMemorial [facility]07-[facility]-2022 NoteHNO ID: [id number] Author: Binh Hernandez MD Service: ? Author [...] June 2021 one dose of iron sucrose 5-10-2022 hemoglobin 9.6, MCV 73, ferritin 86 09-26-21 [...] which included preparing to see the patient, [id number] patient care, completing clinical documentation, obtaining and/or reviewing separately obtained history, performing a medically appropriate examination, counseling and educating the patient/family/caregiver, ordering medications, tests, or procedures, independently interpreting results (not separately reported) and communicating results to the patient/family/caregiver. CC: Erik ZimmermanOhio[facility]07-25-2022 History of Present illness Narrative* Binh Hernandez [...] HISTORY: Patient mentions being iron deficient in 2018 or 2019 [...] which included preparing to see the patient, [id number] patient care, completing clinical documentation, obtaining and/or reviewing separately obtained history, performing a medically appropriate examination, counseling and educating the pat ient/family/caregiver, ordering medications, tests, or procedures, independently interpreting results (not separately reported) and communicating results to the patient/family/caregiver. CC: Erik Zimmerman documented in this encounterMemorial [facility]06-20-2022 NoteHNO ID: [id number] Author: Angeles Moss RN Service: ? Author Type: Registered Nurse Type: Progress Notes Filed: 08/22/2021 1:19 PM Note Text: .[facility]06-[facility] History of Present illness Narrative* Angeles Moss RN - 08/22/2021 11:15 AM EDT . documented in this encounterMemorial [facility]05-24-2022 NoteHNO ID: [id number] Author: Binh Hernandez MD Service: ? Author [...] which included preparing to see the patient, [id number] patient care, completing clinical documentation, obtaining and/or reviewing separately obtained history, performing a medically appropriate examination, counseling and educating the patient/family/caregiver, ordering medications, tests, or procedures, independently interpreting results (not separately reported) and communicating results to the patient/family/caregiver. CC: Erik ZimmermanOhiohealth [facility]05-24-2022 History of Present illness Narrative* Binh Hernandez [...] which included preparing to see the patient, [id number]-cn-eccr patient care, completing clinical documentation, obtaining and/or reviewing separately obtained history, performing a medically appropriate examination, counseling and educating the pat ient/family/caregiver, ordering medications, tests, or procedures, independently interpreting results (not separately reported) and communicating results to the patient/family/caregiver. CC: Erik Zimmerman documented in this encounterMemorial Health [facility]05-16-2022 Miscellaneous Notes* Telephone Encounter - Sade Silva [...] still be in for her f/u with VERA. Thank you. Charisma Henderson RN documented in this encounterMemorial Health [facility]04-22-2022 Miscellaneous Notes* Telephone Encounter - Charisma Henderson [...] She will need iron labs rechecked. Thanks, VERA * Telephone Encounter - Charisma Henderson RN - 06/24/2021 1:12 PM EDT Received call from pt stating she is not able to get in with Dr Vera until September 01. So she didn't know if she should keep with f/u appt with Dr Hernandez as is on 07/26 or move it back until after her 09/01 appt. SJK: Please advise. Charisma Henderson, RN documented in this encounterMemorial Health [facility]04-14-2022 Miscellaneous Notes* Telephone Encounter - Jovita Brandin Pss - 06/16/2021 2:02 PM EDT Herrera Ramos spoke with [facility]. She states they have received patient records/referral and have patient scheduled to see Dr Espana on 09/01 @ 1:45. Jovita Ghotra Pss * Telephone Encounter - Devi Lawrence [facility] - 06/14/2021 1:14 PM EDT Records faxed to Dr. Espana. * Telephone Encounter - Lilian Valdez Sec - 06/14/2021 12:29 PM EDT Patient is being referred to Gi Dr. Espana. Their office will call the patient to schedule this appt. Jackie, Please fax records to his office. Info has been printed for faxing and is in your mailbox. Thank you documented in this encounterMemorial Health System [facility]04-12-2022 NoteHNO ID: [id number] Author: Binh Hernandez MD Service: ? Author [...] patient, she was iron deficient in either 2019 on 2019. At this time, she had [...] 9.1, MCV 70, WBC 5.7, platelets 242 4-12-22 hemoglobin 8.9, MCV 69, WBC 4.9, platelets [...] which included preparing to see the patient, [id number] patient care, completing clinical documentation, obtaining and/or reviewing separately obtained history, performing a medically appropriate examination, counseling and educating the patient/family/caregiver, ordering medications, tests, or procedures, independently interpreting results (not separately reported) and communicating results to the patient/family/caregiver. CC: Erik ZimmermanOhiohealth [facility]04-12-2022 History of Present illness Narrative* Binh Hernandez [...] patient, she was iron deficient in either 2019 on 2019. At this time, she had [...] which included preparing to see the patient, [id number] patient care, completing clinical documentation, obtaining and/or reviewing separately obtained history, performing a medically appropriate examination, counseling and educating the pat ient/family/caregiver, ordering medications, tests, or procedures, independently interpreting results (not separately reported) and communicating results to the patient/family/caregiver. CC: Erik Zimmerman documented [facility]* Diagnosis Iron deficiency anemia due to chronic blood loss- Primary Iron deficiency anemia secondary to blood loss (chronic) documented in this encounter [facility]* Diagnosis Iron deficiency anemia due to chronic blood loss- Primary Iron deficiency anemia secondary to blood loss (chronic) documented in this encounter [facility]* Diagnosis Iron deficiency anemia due to chronic blood loss- Primary Iron deficiency anemia secondary to blood loss (chronic) documented in this encounter [facility] note* Diagnosis Iron deficiency anemia due to chronic blood loss- Primary Iron deficiency anemia secondary to blood loss (chronic) documented in this encounter [facility] note* Diagnosis Iron deficiency anemia due to chronic blood loss- Primary Iron deficiency anemia secondary to blood loss (chronic) documented in this encounter [facility] noteNo [facility] [employer] Other Evaluation note* Diagnosis Onset Date Resolution Status Essential hypertension acute CAREY (generalized anxiety disorder) acute Palpitation acute Cerumen impaction noneactive [facility] Work Phone: Evaluation note* Diagnosis Onset Date Resolution Status Essential hypertension acute CAREY (generalized anxiety disorder) acute Palpitation acute Cerumen impaction noneactive Occlusion of left carotid artery acute Palpitation acute Cerumen impaction noneactive Decreased hearing of both ears noneactive Essential hypertension acute CAREY (generalized anxiety disorder) acute Occlusion of left carotid artery acute Palpitation acute Fatigue noneactive Anemia noneactive [facility] Work Phone: Evaluation note* Diagnosis Onset Date Resolution Status Essential hypertension acute CAREY (generalized anxiety disorder) acute Palpitation acute Cerumen impaction noneactive Occlusion of left carotid artery acute Palpitation acute Cerumen impaction noneactive Decreased hearing of both ears noneactive Essential hypertension acute CAREY (generalized anxiety disorder) acute Occlusion of left carotid artery acute Palpitation acute Fatigue noneactive Anemia noneactive Dog bite of left lower leg [facility] Work Phone: History general Narrative - Reported* Type Description Date Surgical History appendectomy [facility] Other History general Narrative - Reported* Type [...] BUNIONECTOMY 2018 Hospitalization History SEE SURGICAL HX [facility] Other Reason for referral (narrative)* Reason Referral for pain ma nagement Diagnosis 1 Kyphoscoliosis defor mity of spine (M41.9) Diagnosis 2 Lumbar spondylosis ( M47.816) Referral Organization [facility], [facility]–1983 caroline Referring Provider First Name Erik Referring Provider Last Name Erasmo Referring Provider Specialty Internal Me dicine Referred Organization [facility] Referred Provider Mirian Maldonado Referred Address [address] [place], [place],[address] Referred Provider Specialty Pain Medicin e Referral Priority Routine General Notes 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 She has daily pain, moderate in intensity, which interferes with activities of daily living. Clinical Notes XR lumbar spine and B/L hips to be included w/ referral. [facility] Other Reason for Referral Specialty Diagnoses / Procedures Referred By Juanpablo damian Referred To Contact Gastroenterology Diagnoses Iron deficiency anemia due to chronic blood loss Procedures CONSULT TO GASTROENTEROLOGY OFFICE/OUTPATIENT [facility] 60-74 MINUTES Binh Hernandez MD [address] [place] [address] [place] [address] Referral ID Status Reason Start Date Expiration Date Visits Requested Visits Authorized [id number] Authorized PCP Requested Referral 06/14/2021 06/14/2022 1 [...] over 90 Minutes, ONCE, 1 dose, On Sun08/22/21 at 1130, Please conduct a 30 minute post dose observation. TV 290 mL New Bag/Syringe/Bottle 08/22/2021 11:15 AM EDT 300 mg 166.67 mL/hr Summary Purpose Family History Relationship Condition Age at Onset Recorded Date/T malika father Unknown Hypertension Unknown Heart disease Unknown Not Specified Unknown sister Hypertension Unknown Advance Directives Advance Directive Response Recorded Date/ Time Advance Directives No April 5:43pm Chief Complaint and Reason for Visit Chief Complaint HR ear irrigation Reason for Visit Essential hypertensi on CAREY (generalized anxiety disorder) Palpitation Cerumen impaction Chief Complaint HR ear irrigation 4 month follow up Reason for Visit Essential hypertensi on CAREY (generalized anxiety disorder) Palpitation Cerumen impaction Occlusion of left carotid artery Palpitation Cerumen impaction Decreased hearing of both ears Essential hypertension CAREY (generalized anxiety disorder) Occlusion of left carotid artery Palpitation Fatigue Anemia Chief Complaint HR ear irrigation 4 month follow up dog bite Reason for Visit Essential hypertensi on CAREY (generalized anxiety disorder) Palpitation Cerumen impaction Occlusion of left carotid artery Palpitation Cerumen impaction Decreased hearing of both ears Essential hypertension CAREY (generalized anxiety disorder) Occlusion of left carotid artery Palpitation Fatigue Anemia Dog bite of left lower leg Additional Source Comments Source Comments (unrecognize d section and content) In the event this informatio n is protected by the [facility] Confidentiality of Alcohol and Drug Abuse Patient Records regulations: The Federal rules restrict any use of the information to criminally investigate or prosecute any alcohol or drug abuse patient.[facility] the event this information is protected by the Federal Confidentiality of Alcohol and Drug Abuse Patient Records regulations: The Federal rules restrict any use of the information to criminally investigate or prosecute any alcohol or drug abuse patient.[facility] Hospital[facility] the event this information is protected by the Federal Confidentiality of Alcohol and Drug Abuse Patient Records regulations: The Federal rules restrict any use of the information to criminally investigate or prosecute any alcohol or drug abuse patient.[facility] Hospital[facility] the event this information is protected by the Federal Confidentiality of Alcohol and Drug Abuse Patient Records regulations: The Federal rules restrict any use of the information to criminally investigate or prosecute any alcohol or drug abuse patient.[facility] Hospital[facility] the event this information is protected by the Federal Confidentiality of Alcohol and Drug Abuse Patient Records regulations: The Federal rules restrict any use of the information to criminally investigate or prosecute any alcohol or drug abuse patient.[facility] Hospital[facility] the event this information is protected by the Federal Confidentiality of Alcohol and Drug Abuse Patient Records regulations: The Federal rules restrict any use of the information to criminally investigate or prosecute any alcohol or drug abuse patient.[facility] HospitalIn the event this information is protected by the Federal Confidentiality of Alcohol and Drug Abuse Patient Records regulations: The Federal rules restrict any use of the information to criminally investigate or prosecute any alcohol or drug abuse patient.[facility] HospitalIn the event this information is protected by the Federal Confidentiality of Alcohol and Drug Abuse Patient Records regulations: The Federal rules restrict any use of the information to criminally investigate or prosecute any alcohol or drug abuse patient.[facility] HospitalIn the event this information is protected by the Federal Confidentiality of Alcohol and Drug Abuse Patient Records regulations: The Federal rules restrict any use of the information to criminally investigate or prosecute any alcohol or drug abuse patient.[facility] HospitalIn the event this information is protected by the Federal Confidentiality of Alcohol and Drug Abuse Patient Records regulations: The Federal rules restrict any use of the information to criminally investigate or prosecute any alcohol or drug abuse patient.[facility] HospitalIn the event this information is protected by the Federal Confidentiality of Alcohol and Drug Abuse Patient Records regulations: The Federal rules restrict any use of the information to criminally investigate or prosecute any alcohol or drug abuse patient.[facility] HospitalIn the event this information is protected by the Federal Confidentiality of Alcohol and Drug Abuse Patient Records regulations: The Federal rules restrict any use of the information to criminally investigate or prosecute any alcohol or drug abuse patient.[facility] Reason for Visit (unrecogniz ed section and content) Reason Comments Anemia New patient consult Reason Comments Future Appointment Reason Comments Appointment Reason Comments Medication Follow-up Monoferric not cove red - switched plan to Venfoer 300mg x3 weekly doses Reason Comments Results Appointment Reason Comments Anemia 6 week follow up Specialty Diagnoses / Procedures Referred By Contaramis t Referred To Contact Diagnoses Iron deficiency anemia due to chronic blood loss Procedures IRON SUCROSE INJECTION PER 1 MG Binh Hernandez MD [address] [place] [address] [place] [address] Fernando Treat Samuel [address] [place] [address] Referral ID Status Reason Start Date Expiration Date V isits Requested Visits Authorized [id number] Authorized 06/15/2021 03/04/2022 99 99 Reason Comments Anemia Reason Comments Results Care Teams (unrecognized sec tion and content) Team Status: Active Member Role Status Dates Erik Zimmerman DO Primary Care Provider Active Team Status: Inactive Member Role Status Dates Erik Zimmerman DO Primary Care Provide r, Attending Provider Active Start: May 11, 2023 End: May 11, 2023 Team Status: Inactive Member Role Status Dates Erik Zimmerman DO Primary Care Provide r, Attending Provider Active Start: May 18, 2023 End: May 18, 2023 Team Status: Inactive Member Role Status Dates Erik Zimmerman DO Primary Care Provide r, Attending Provider Active Start: June 18, 2023 End: June 18, 2023 Team Status: Inactive Member Role Status Dates Erik Zimmerman DO Primary Care Provider Active Start: August 09, 2023 End: August 09, 2023 Devi Mills APRN KNOT [employer]W OPERATOR-C Attending Provider Act corinne Start: August 09, 2023 End: August 09, 2023 Champagne Maker Relationship Specialty Start Date End Date Erik Zimmerman DO PCP - General Internal Medicine 11/17/13 Champagne Maker Relationship Specialty Start Date End Date Erik Zimmerman DO PCP - General Internal Medicine 11/17/13 Champagne Maker Relationship Specialty Start Date End Date Erik Zimmerman, DO PCP - General Internal Medicine 11/17/13 Champagne Maker Relationship Specialty Start Date End Date Erik Zimmerman, DO PCP - General Internal Medicine 11/17/13 Champagne Maker Relationship Specialty Start Date End Date Erik Zimmerman, DO PCP - General Internal Medicine 11/17/13 Champagne Maker Relationship Specialty Start Date End Date Erik Zimmerman, DO PCP - General Internal Medicine 11/17/13 Champagne Maker Relationship Specialty Start Date End Date Erasmo Erik Anderson, DO PCP - General Internal Medicine 11/17/13 Champagne Maker Relationship Specialty Start Date End Date Erik Zimmerman, DO PCP - General Internal Medicine 11/17/13 Champagne Maker Relationship Specialty Start Date End Date Erik Zimmerman, DO PCP - General Internal Medicine 11/17/13 Team Status: Active Member Role Status Dates Erik Zimmerman DO Primary Care Provider Active Team Status: Active Member Role Status Dates Erik Zimmerman DO Primary Care Provide r, Attending Provider Active Start: April 18, 2023 Team Status: Inactive Member Role Status Dates Erik Zimmerman DO Primary Care Provide r, Attending Provider Active Start: May 11, 2023 End: May 11, 2023 Team Status: Inactive Member Role Status Dates Erik Zimmerman DO Primary Care Provide r, Attending Provider Active Start: May 18, 2023 End: May 18, 2023 Team Status: Inactive Member Role Status Dates Erik Zimmerman DO Primary Care Provide r, Attending Provider Active Start: June 18, 2023 End: June 18, 2023 Team Status: Inactive Member Role Status Dates Erik Zimmerman DO Primary Care Provider Active Start: August 09, 2023 End: August 09, 2023 LINDA Acevedo Attending Provider Act corinne Start: August 09, 2023 End: August 09, 2023 INFORMATION SOURCE (unrecogn ized section and content) DATE CREATED AUTHOR 11/30/2021 [facility] DATE CREATED AUTHOR AUTHOR'S ORGANIZ ATION 07/12/2022 [facility] DATE CREATED AUTHOR AUTHOR'S ORGANIZ ATION 10/24/2022 [facility] DATE CREATED AUTHOR AUTHOR'S ORGANIZ ATION 05/12/2023 [facility] Goals (unrecognized section and content) Goals may be documented in a n alternate section FOR RECORDS PERTAINING TO PATIENTS WHO ARE [...] BE BASED ON THE PRIMARY CLINICAL RECORDS. [employer] [facility]. provides no warranty or guarantee of the accuracy or completeness of information in this document.
== END 2023-08-10 11:14 | disposition home or self-care (01) ==
LOC: MAMMO 11:13
PROVIDERS: PCP Internal Medicine; Visit Provider Internal Medicine
DX: Z12.31 Encounter for screening mammogram for malignant neoplasm of breast (principal); Z80.3 Family history of malignant neoplasm of breast; Z80.8 Family history of malignant neoplasm of other organs or systems
CPT/HCPCS: 77063; 77067

== ENCOUNTER 2023-09-03 14:22 | Outpatient (OUT) | payer MEDICARE, SELFPAY ==
--- OUTSIDE RECORDS SUMMARY | 2023-09-03 14:47 | XMS_ITS | CCD ---
Author Organization [facility] Care Team Providers Care Vinegar Maker Name Role Phone Erik Zimmerman DO [...] E Referring Unavailable KUNTE, BINH Attending Unavailable OBDULIO, ERIK Anderson Primary Care Unavailable FIORELLA GONZALEZ Referring Unavailable KUNTE, BINH Referring Unavailable BALL, ERIK Anderson Primary Care Unavailable KUNTE, BINH Referring Unavailable BALL, ERIK Anderson Primary Care Unavailable KUNTE, BINH Attending Unavailable OBDULIO, ERIK Anderson Primary Care Unavailable KUNTE, BINH [...] Admitting Unavailable BALL, DR VALENCIA Consulting Unavailable OBDULIO, DR VALENCIA Attending Unavailable BALL, DR VALENCIA Admitting Unavailable BALL, DR VALENCIA Primary Care Unavailable OBDULIO, DR VALENCIA Attending Unavailable BALL, DR VALENCIA Primary Care Unavailable BALL, DR VALENCIA Admitting Unavailable BALL, DR VALENCIA Consulting Unavailable EDIEEBESTELA, DR ENRIQUETA Louis Consulting Unavailable MADAI, DR Elian Louis Admitting Unavailable MADAI, DR Elian Louis Consulting Unavailable OBDULIO, DR VALENCIA Primary Care Unavailable MADAI, DR Elian Louis Attending Unavailable BALL, DR VALENCIA Consulting Unavailable BALL, DR VALENCIA Primary Care Unavailable BALL, DR VALENCIA Attending Unavailable BALL, DR VALENCIA Admitting Unavailable Cyrus BELLAMY, Trudy Anton Attending Unavailable Cyrus BELLAMY, Trudy Anton Attending Unavailable Ball, Erik Admitting Unavailable Ball, Erik Attending Unavailable Ball, Erik Primary Care Unavailable Obdulio, DO Valencia Primary Care Provider Obdulio, DO Valencia Attending Provider [phone] Allergies Allergy Classification Reported Allergen(s) Allergy Type Date of Onset Reaction(s) Facility (13 sources) predniSONE; Translations: [PREDNISONE] Drug Allergy 4 Other: See Comments [facility] (13 sources) Eye Drops Relief; Translations: [EYE DROPS RELIEF] Drug Allergy [address] [facility] (2 sources) predniSONE Drug Allergy 4 [facility] Repository Medications Current Medications Medication Drug Class(es) Dates Sig (Normalized) Sig (Original) ALPRAZolam 0.25 mg oral tablet (20 sources) Benzodiazepine Start: 05-11-2023 take 0.25 mg by mouth every eight hours Alprazolam Active 0.25 MG PO Every 8 hours May 11, 2023 2:48pm Start: 04-23-2023 End: 05-11-2023 take 0.25 mg by mouth three times daily Alprazolam Discontinued 0.25 MG PO Three times daily 90 April 23, 2023 8:49pm May 11, 2023 [...] oral tablet (1 source) Penicillin-class Antibacterial Start: 4 take 1 tablet by mouth twice daily [...] twice daily. TAKE ONE TABLET BY M OUT ONCE DAILY AT BEDTIME FOR 30 DAYS [...] Start: 10-30-2022 take 1 tablet by bernice once at bedtime as needed Aleve 220 MG 1 tablet with food or milk as needed Orally q HS w/ pepcid Oct, Active omeprazole 40 mg delayed release oral capsule (20 sources) Proton Pump Inhibitor Start: 05-11-2023 take 40 mg by mouth once daily Omeprazole Active 40 MG PO Daily May 11, 2023 1:00am Start: 10-19-2021 take 1 capsule by mo [facility] once daily Omeprazole 40 MG 1 capsule 30 minutes before morning meal Orally Once a day for 30 days Oct, Active Start: 05-07-2019 End: 05-11-2023 Omeprazole Discontinued Payam h 2019 1:00am May 11, 2023 2:50pm PriLOSEC [...] 09-08-2021 Episodic Other aftercare (1 source) Other joint terminal attack controller (current) drug therapy; Translations: [OTH MANIFOLD BUILDER CURRENT DRUG THERAPY] Onset: 09-21-2021 Episodic Other [...] Refractometry automated (U) [Rel density] 1.015 1.005-1.[address] [facility] Basophils Auto (Bld) [#/Vol] on 06-18-2023 Basophils (Bld) [#/Vol] 0.1 10 3/uL 0.0-0.[address] [facility] Basophils/100 WBC Auto (Bld) on 06-18-2023 Basophils/100 WBC (Bld) 1.1 % 0.2-2.[address] [facility] Bilirubin Auto test strip (U ) [Mass/Vol]on 06-18-2023 Bilirubin (U) [Mass/Vol] Negative NEGATIVE [facility] Color Auto (U)on 06-18-2023 Color (U) LT. YELLOW YELLOW [facility] Eosinophils/100 WBC Auto (Bl d)on 06-18-2023 Eosinophils/100 WBC (Bld) 4.4 % 0.9-7.[address] [facility] Erythrocyte distribution wid th Auto (RBC) [Ratio]on 06-18-2023 Erythrocyte distribution width (RBC) [Ratio] 13.2 % 11.0-15.[address] [facility] Glucose [Mass/volume] in Uri ne by Test stripon 06-18-2023 Glucose Test strip (U) [Mass/Vol] Negative NEGATIVE [facility] Hematocrit Auto (Bld) [Volum e fraction]on 06-18-2023 Hematocrit (Bld) [Volume fraction] 43.8 % 36.0-48.[address] [facility] Hemoglobin [Mass/volume] in Bloodon 06-18-2023 Hemoglobin (Bld) [Mass/Vol] 13.4 g/dL 12.0-16.[address] [facility] Iron binding capacity [Mass/ volume] in Serum or Plasmaon 06-18-2023 Iron binding capacity [Mass/Vol] 405.0 ug/dL 250.0-450.[address] [facility] Iron saturation [Mass Fracti on] in Serum or Plasmaon 06-18-2023 Iron saturation [Mass fraction] 9.4 % [facility] Ketones Auto test strip (U) [Mass/Vol]on 06-18-2023 Ketones (U) [Mass/Vol] Negative NEGATIVE [facility] Laboratory - Chemistry and C hemistry - challengeon 06-18-2023 Iron [Mass/Vol] 38.0 ug/dL 50.0-170.[address] [facility] TSH Qn 0.901 m[IU]/L 0.358-3.[address] [facility] Cobalamin (Vitamin B12) [Mass/Vol] 334.0 pg/mL 193.0-986.[address] [facility] Ferritin [Mass/Vol] 49.0 ng/mL 8.0-252.0 [facility] Laboratory - Hematology and Cell countson 06-18-2023 Immature granulocytes/100 WBC (Bld) 0.4 % 0.0-0.[address] [facility] Leukocytes [#/volume] correc adarsh for nucleated erythrocytes in Blood by Automated counon 06-18-2023 WBC corrected for nucl RBC Auto (Bld) [#/Vol] 5.7 10 3/uL 4.0-11.[address] [facility] Lymphocytes Auto (Bld) [#/Vo l]on 06-18-2023 Lymphocytes (Bld) [#/Vol] 1.5 10 3/uL 1.2-3.[address] [facility] Lymphocytes/100 WBC Auto (Bl d)on 06-18-2023 Lymphocytes/100 WBC (Bld) 26.2 % 20.5-60.[address] [facility] MCH Auto (RBC) [Entitic mass ]on 06-18-2023 MCH (RBC) [Entitic mass] 28.3 pg 26.7-34.[address] [facility] MCHC Auto (RBC) [Mass/Vol]on 06-18-2023 MCHC (RBC) [Mass/Vol] 30.6 g/dL 29.9-35.[address] [facility] MCV Auto (RBC) [Entitic vol] on 06-18-2023 MCV (RBC) [Entitic vol] 92.6 fL 81.0-99.[address] [facility] Monocytes Auto (Bld) [#/Vol] on 06-18-2023 Monocytes (Bld) [#/Vol] 0.5 10 3/uL 0.3-0.[address] [facility] Monocytes/100 WBC Auto (Bld) on 06-18-2023 Monocytes/100 WBC (Bld) 9.4 % 1.7-12.[address] [facility] Neutrophils Auto (Bld) [#/Vo l]on 06-18-2023 Neutrophils (Bld) [#/Vol] 3.3 10 3/uL 1.4-6.[address] [facility] Neutrophils/100 WBC Auto (Bl d)on 06-18-2023 Neutrophils/100 WBC (Bld) 58.5 % 43.0-75.[address] [facility] No Panel Informationon 06-17 Eosinophils # (Auto) 0.3 10 3/uL 0.0-0.7 [facility] Immature Granulocyte # (Auto) 0.02 10 3/uL 0.00-0.[address] [facility] Folate 20.20 ng/mL 8.60-58.[address] [facility] Platelet mean volume Auto (B ld) [Entitic vol]on 06-18-2023 Platelet mean volume (Bld) [Entitic vol] 10.3 fL 9.5-13.[address] [facility] Platelets Auto (Bld) [#/Vol] on 06-18-2023 Platelets (Bld) [#/Vol] 189 10 3/uL 150-[address] [facility] Protein Auto test strip (U) [Mass/Vol]on 06-18-2023 Protein (U) [Mass/Vol] 30 mg/dL NEG/TRACE [facility] RBC Auto (Bld) [#/Vol]on RBC (Bld) [#/Vol] 4.73 10 6/uL 4.20-5.40 [facility] Specific gravity Auto test s trip (U) [Rel density]on 06-18-2023 Specific gravity (U) [Rel density] CLEAR CLEAR [facility] Urine hemoglobin detection b y automated test stripon 06-18-2023 Hemoglobin Auto test strip Ql (U) TRACE-I NEGATIVE [facility] Urine nitrite detection by a utomated test stripon 06-18-2023 Nitrite Auto test strip Ql (U) Negative NEGATIVE [facility] Urobilinogen Auto test strip (U) [Mass/Vol]on 06-18-2023 Urobilinogen Qn (U) 0.2 {Dank'U}/dL 0.2-1.[address] [facility] pH Auto test strip (U)on pH (U) 7.5 [pH] 5.0-9.[address] [facility] Estimated glomerular filtrat ion rate (GFR) non- Americanon 04-18-2023 GFR/1.73 sq M.predicted among non-blacks MDRD (S/P/Bld) [Vol rate/Area] 57 mL/min/{1.73_m2} >=[address] [facility] Laboratory - Chemistry and C hemistry - challengeon 04-18-2023 Calcium [Mass/Vol] 9.0 mg/dL 8.5-10.1 [facility] Chloride [Moles/Vol] 105 mmol/L 98-107 [facility] CO2 [Moles/Vol] 28.0 mmol/L 21.0-32.0 [facility] Creatinine [Mass/Vol] 0.93 mg/dL 0.55-1.[address] [facility] GFR/1.73 sq M.predicted MDRD (S/P/Bld) [Vol rate/Area] mL/min/{1.73_m2} >=[address] [facility] Glucose [Mass/Vol] 87 mg/dL 74-106 [facility] Potassium [Moles/Vol] 4.0 mmol/L 3.5-5.[address] [facility] Sodium [Moles/Vol] 141 mmol/L 136-145 [facility] Urea nitrogen [Mass/Vol] 19.0 mg/dL 7.0-18.[address] [facility] Urea nitrogen/Creatinine [Mass ratio] 20.4 mg/mg [facility] No Panel Informationon 04-18 25-Hydroxy Vitamin D Total 38.2 ng/mL [facility] Comment on above: <20 ng/mL Vit D defi cient20-<30 ng/mL Vit D sjtztxzjeszz27-586 ng/mL Vit D sufficient>100 ng/mL Potential Toxicity Serum or plasma anion gap de terminationon 04-18-2023 Anion gap [Moles/Vol] 12.0 mmol/L [facility] Basic Metabolic Panelon 02-02 Anion gap [Moles/Vol] 10.9 mmol/L [employer] Other Calcium [Mass/Vol] 8.3560901 mg/dL Normal 8.5-10 .1 mg/dL [employer] Other Chloride [Moles/Vol] 102 mmol/L Normal 98-107 mmol/L [employer] Other CO2 [Moles/Vol] 28.83820531 mmol/L Normal 21.0-3 2.0 mmol/L [employer] Other Creatinine [Mass/Vol] 1.41176652 mg/dL High 0.55-1.02 mg/dL [employer] Other Glucose [Mass/Vol] 101 mg/dL Normal 74-106 mg/dL [employer] Other Potassium [Moles/Vol] 3.59535682 mmol/L Normal 3.5-5.1 mmol/L [employer] Other Sodium [Moles/Vol] 138 mmol/L Normal 136-145 mmol/L [employer] Other Urea nitrogen [Mass/Vol] 16.6593154 mg/dL Normal 7.0-18.0 mg/dL [employer] Other Urea nitrogen/Creatinine [Mass ratio] 14.7 mg/mg [employer] Other Basic Metabolic Panel see note [employer] Other Basic Metabolic Panel 47 Low >=60 [employer] Other Basic Metabolic Panel 57 Low >=60 [employer] Other FERRITINon 02-20-2023 Ferritin [Mass/Vol] 31.1612238 ng/mL Normal 8.0- 252.0 ng/mL [employer] Other XR HIPS VALERIY 5V W PELVISon [...] DE DIOS Date: 2022-05-16 11:52 Normal [facility] CBC AUTO DIFFon 03-06-2022 BASO # 0.0 103/ul Normal 0.0-0.1 [facility] Comment on above: Performed By: #### C BC ####[facility] [address] [address]Dr. Devorah James Basophils/100 WBC (Bld) 0.7 % Normal 0.2-2.0 [facility] Comment on above: Performed By: #### C BC ####[facility] [address] [address]Dr. Devorah James EO # 0.2 103/ul Normal 0.0-0.7 [facility] Comment on above: Performed By: #### C BC ####[facility] [address] [address]Dr. Devorah James Eosinophils/100 WBC (Bld) 3.7 % Normal 0.9-7.0 [facility] Comment on above: Performed By: #### C BC ####[facility] [address] [address]Dr. Devorah James Erythrocyte distribution width (RBC) [Ratio] 12.8 % Normal 11.0-15.0 [facility] Comment on above: Performed By: #### C BC ####[facility] [address] [address]Dr. Elsycindy James Hematocrit (Bld) [Volume fraction] 41.5 % Normal 36.0-48.0 [facility] Comment on above: Performed By: #### C BC ####[facility] [address] [address]Dr. Devorah James Hemoglobin (Bld) [Mass/Vol] 13.3 g/dL Normal 12.0-16.0 [facility] Comment on above: Performed By: #### C BC ####[facility] [address] [place], [place] [address]Dr. Devorah James IG # 0.01 10e3/ul Normal 0.00-0.03 [facility] Comment on above: Performed By: #### C BC ####[facility] [address] [place], [place] [address]Dr. Devorah James IG % 0.2 % Normal 0.0-0.5 [facility] Comment on above: Performed By: #### C BC ####[facility] [address] [place], [place] [address]Dr. Devorah James LYMPH # 1.1 103/ul Critically low 1.2-3.8 [facility] Comment on above: Performed By: #### C BC ####[facility] [address] [place], [place] [address]Dr. Devorah James Lymphocytes/100 WBC (Bld) 18.2 % Critically low 20.5-60.0 [facility] Comment on above: Performed By: #### C BC ####[facility] [address] [place], [place] [address]Dr. Devorah James MANUAL DIFF REQ NO Normal [facility] Comment on above: Performed By: #### C BC ####[facility] [address] [place], [place] [address]Dr. Devorah James MCH (RBC) [Entitic mass] 29.1 pg Normal 26.7-34.0 [facility] Comment on above: Performed By: #### C BC ####[facility] [address] [id number]. Devorah Jacob MCHC (RBC) [Mass/Vol] 32.0 g/dL Normal 29.9-35.2 [facility] Comment on above: Performed By: #### C BC ####[facility] [address] [id number]. Devorah James MCV (RBC) [Entitic vol] 90.8 fL Normal 81.0-99.0 [facility] Comment on above: Performed By: #### C BC ####[facility] [address] [place], [place] [address]Dr. Devorah James MONO # 0.6 103/ul Normal 0.3-0.8 [facility] Comment on above: Performed By: #### C BC ####[facility] [address] [place], [place] [address]Dr. Devorah James Monocytes/100 WBC (Bld) 10.0 % Normal 1.7-12.0 [facility] Comment on above: Performed By: #### C BC ####[facility] [address] [place], [place] [address]Dr. Elsycindy James NEUT # 4.0 103/ul Normal 1.4-6.5 [facility] Comment on above: Performed By: #### C BC ####[facility] [address] [place], [place] [address]Dr. Devorah James Neutrophils/100 WBC (Bld) 67.2 % Normal 43.0-75.0 [facility] Comment on above: Performed By: #### C BC ####[facility] [address] [place], [place] [address]Dr. Devorah James Platelet mean volume (Bld) [Entitic vol] 10.1 fL Normal 9.5-13.5 [facility] Comment on above: Performed By: #### C BC ####[facility] [address] [place], [place] [address]Dr. Devorah James PLT 183 103/ul Normal 150-450 [facility] Comment on above: Performed By: #### C BC ####[facility] [address] [place], [place] [address]Tn. Devorah James RBC 4.57 106/ul Normal 4.20-5.40 [facility] Comment on above: Performed By: #### C BC ####[facility] [address] [place], [place] [address]Ew. Devorah James WBC 6.0 103/ul Normal 4.0-11.0 [facility] Comment on above: Performed By: #### C BC ####[facility] [address] [phone]. Devroah James FERRITINon 03-06-2022 Ferritin [Mass/Vol] 44.0 ng/mL Normal 8.0-252.0 [facility] Comment on above: Performed By: #### F ERR, VITAD #### [facility] [address] [address] [address] Devorah James PROF CHEM 8 (BAS METB)on Anion gap [Moles/Vol] 11.8 mmol/L Normal [facility] Comment on above: Performed By: #### B MP ####[facility] [address] [id number]. Devorah James Calcium [Mass/Vol] 8.8 mg/dL Normal 8.5-10.1 [facility] Comment on above: Performed By: #### B MP ####[facility] [address] [id number]. Devorah James Chloride [Moles/Vol] 102 mmol/L Normal 98-107 [facility] Comment on above: Performed By: #### B MP ####[facility] [address] [place] [phone] James CO2 [Moles/Vol] 27.7 mmol/L Normal 21.0-32.0 [facility] Comment on above: Performed By: #### B MP ####[facility] [address] [place] [phone] James Creatinine [Mass/Vol] 0.84 mg/dL Normal 0.55-1.02 [facility] Comment on above: Performed By: #### B MP ####[facility] [address] [address]Dr. Devorah James EGFR-AF PAKISTANI >60 Normal >=60 [facility] Comment on above: Performed By: #### B MP ####[facility] [address] [place] [id number]. Devorah James EGFR-NON AF PAKISTANI >60 Normal >=60 [facility] Comment on above: Performed By: #### B MP ####[facility] [address] [phone]. Devorah James Glucose [Mass/Vol] 112 mg/dL Critically high 74-106 [facility] Comment on above: Performed By: #### B MP ####[facility] [address] [place] [address]Dr. Elsycindy Jacob Potassium [Moles/Vol] 4.5 mmol/L Normal 3.5-5.1 [facility] Comment on above: Performed By: #### B MP ####[facility] [address] [address]Dr. Devorah Jacob Sodium [Moles/Vol] 137 mmol/L Normal 136-145 [facility] Comment on above: Performed By: #### B MP ####[facility] [address] [place] [address]Dr. Devorah James Urea nitrogen [Mass/Vol] 15.0 mg/dL Normal 7.0-18.0 [facility] Comment on above: Performed By: #### B MP ####[facility] [address] [place] [phone]. Devorah Jacob Urea nitrogen/Creatinine [Mass ratio] 17.9 mg/mg Normal [facility] Comment on above: Performed By: #### B MP ####[facility] [address] [place], [place] [address]Dr. Devorah Jacob VITAMIN D 25 OHon 03-06-2022 VIT D 25-OH 47.3 ng/mL Normal [facility] Comment on above: Performed By: #### F ERR, VITAD #### [facility] [address] [place] [address] Dr. Devorah James VIT D RANGES SEE BELOW Normal [facility] Comment on above: Result Comment: <20 ng/mL Vit D deficient 20 - <30 ng/mL Vit D insufficient 30 - 100 ng/mL Vit D sufficient >100 ng/mL Potential Toxicity Performed By: #### F ERR, VITAD #### [facility] [address] [address] [address] Devorah Lua 11-17-2021 CNPN Telephone (HEMTSA) NINA ESCALONA ([id number]) 1935 F Date Time Provider Department 11/17/21 [...] Status:Closed by JEWEL RICHARDSON on 11/17/21 Normal [facility] CBC W Auto Differential pane l (Bld)on 11-16-2021 Basophils (Bld) [#/Vol] 0.03 10*3/uL Normal <0.11 [facility] Comment on above: Order Comment: Speci men Type: BLOOD SPECIMENOrdering Facility: [facility] Address: [address] [address] Performed By: #### 5 7021-8 ####[facility] LABCLIA [id number] [place] [address] Basophils/100 WBC (Bld) 0.6 % Normal [facility] Comment on above: Order Comment: Speci men Type: BLOOD SPECIMENOrdering Facility: [facility] Address: [address] [id number] Performed By: #### 5 7021-8 ####[facility] LABCLIA [id number] [place] [address] Differential cell count method Nom (Bld) Auto Normal [facility] Comment on above: Order Comment: Speci men Type: BLOOD SPECIMENOrdering Facility: [facility] Address: [address] [place] [address] Performed By: #### 5 7021-8 ####[facility] LABCLIA [id number] [place] [address] Eosinophils (Bld) [#/Vol] 0.10 10*3/uL Normal <0.46 [facility] Comment on above: Order Comment: Speci men Type: BLOOD SPECIMENOrdering Facility: [facility] Address: [address] [place] [address] Performed By: #### 5 7021-8 ####[facility] LABCLIA [id number] [place] [address] Eosinophils/100 WBC (Bld) 2.1 % Normal [facility] Comment on above: Order Comment: Speci men Type: BLOOD SPECIMENOrdering Facility: [facility] Address: [address] [place] [address] Performed By: #### 5 7021-8 ####[facility] LABCLIA [id number] [place] [address] Erythrocyte distribution width (RBC) [Ratio] 17.6 % High 11.5-15.0 [facility] Comment on above: Order Comment: Speci men Type: BLOOD SPECIMENOrdering Facility: [facility] Address: [address] [place] [address] Performed By: #### 5 7021-8 ####[facility] LABIA [id number] [place] [address] Hematocrit (Bld) [Volume fraction] 46.2 % High 36.0-46.0 [facility] Comment on above: Order Comment: Speci men Type: BLOOD SPECIMENOrdering Facility: [facility] Address: [address] [place] [address] Performed By: #### 5 7021-8 ####[facility] LABCLIA [id number] [place] [address] Hemoglobin (Bld) [Mass/Vol] 14.5 g/dL Normal 11.5-15.5 [facility] Comment on above: Order Comment: Speci men Type: BLOOD SPECIMENOrdering Facility: [facility] Address: [address] [place] [address] Performed By: #### 5 7021-8 ####[facility] LABCLIA [id number] [place] [address] IMMATURE GRAN % 0.2 % Normal [facility] Comment on above: Order Comment: Speci men Type: BLOOD SPECIMENOrdering Facility: [facility] Address: [address] [place] [address] Performed By: #### 5 7021-8 ####[facility] LABCLIA [id number] [place] [address] IMMATURE GRAN ABS <0.03 Normal <0.10 [facility] Comment on above: Order Comment: Speci men Type: BLOOD SPECIMENOrdering Facility: [facility] Address: [address] [place] [address] Performed By: #### 5 7021-8 ####[facility] LABCLIA [id number] [place] [address] Lymphocytes (Bld) [#/Vol] 1.01 10*3/uL Normal 1.00-4.00 [facility] Comment on above: Order Comment: Speci men Type: BLOOD SPECIMENOrdering Facility: [facility] Address: [address] [place] [address] Performed By: #### 5 7021-8 ####[facility] LABCLIA [id number] [place] [address] Lymphocytes/100 WBC (Bld) 21.7 % Normal [facility] Comment on above: Order Comment: Speci men Type: BLOOD SPECIMENOrdering Facility: [facility] Address: [address] [place] [address] Performed By: #### 5 7021-8 ####[facility] LABCLIA [id number] [place] [address] MCH (RBC) [Entitic mass] 27.4 pg Normal 26.0-34.0 [facility] Comment on above: Order Comment: Speci men Type: BLOOD SPECIMENOrdering Facility: [facility] Address: [address] [place] [address] Performed By: #### 5 7021-8 ####[facility] LABCLIA [id number] [place] [address] MCHC (RBC) [Mass/Vol] 31.4 g/dL Normal 30.5-36.0 [facility] Comment on above: Order Comment: Speci men Type: BLOOD SPECIMENOrdering Facility: [facility] Address: [address] [place] [address] Performed By: #### 5 7021-8 ####[facility] LABCLIA [id number] [place] [address] MCV (RBC) [Entitic vol] 87.2 fL Normal 80.0-100.0 [facility] Comment on above: Order Comment: Speci men Type: BLOOD SPECIMENOrdering Facility: [facility] Address: [address] [place], [place] [id number] Performed By: #### 5 7021-8 ####[facility] LABIA [id number] [place] [address] Monocytes (Bld) [#/Vol] 0.43 10*3/uL Normal <0.87 [facility] Comment on above: Order Comment: Speci men Type: BLOOD SPECIMENOrdering Facility: [facility] Address: [address] [place], [place] [address] Performed By: #### 5 7021-8 ####[facility] LABCLIA [id number] [place] [address] Monocytes/100 WBC (Bld) 9.2 % Normal [facility] Comment on above: Order Comment: Speci men Type: BLOOD SPECIMENOrdering Facility: [facility] Address: [address] [place] [address] Performed By: #### 5 7021-8 ####[facility] LABCLIA [id number] [place] [address] Neutrophils (Bld) [#/Vol] 3.08 10*3/uL Normal 1.45-7.50 [facility] Comment on above: Order Comment: Speci men Type: BLOOD SPECIMENOrdering Facility: [facility] Address: [address] [place] [address] Performed By: #### 5 7021-8 ####[facility] LABCLIA [id number] [place] [address] Neutrophils/100 WBC (Bld) 66.2 % Normal [facility] Comment on above: Order Comment: Speci men Type: BLOOD SPECIMENOrdering Facility: [facility] Address: [address] [place] [address] Performed By: #### 5 7021-8 ####[facility] LABCLIA [id number] [place] [address] Nucleated RBC (Bld) [#/Vol] 10*3/uL Normal <0.01 [facility] Comment on above: Order Comment: Speci men Type: BLOOD SPECIMENOrdering Facility: [facility] Address: [address] [place], [place] [address] Performed By: #### 5 7021-8 ####[facility] LABCLIA [id number] [place] [address] Nucleated RBC/100 WBC (Bld) [Ratio] 0.0 /100 WBC Normal [facility] Comment on above: Order Comment: Speci men Type: BLOOD SPECIMENOrdering Facility: [facility] Address: [address] [place], [place] [address] Performed By: #### 5 7021-8 ####[facility] LABCLIA [id number] [place] [address] Platelet mean volume (Bld) [Entitic vol] 9.5 fL Normal 9.0-12.7 [facility] Comment on above: Order Comment: Speci men Type: BLOOD SPECIMENOrdering Facility: [facility] Address: [address] [place], [place] [address] Performed By: #### 5 7021-8 ####[facility] LABIA [id number] [place] [address] Platelets (Bld) [#/Vol] 190 10*3/uL Normal 150-400 [facility] Comment on above: Order Comment: Speci men Type: BLOOD SPECIMENOrdering Facility: [facility] Address: [address] [place], [place] [address] Performed By: #### 5 7021-8 ####[facility] LABIA [id number] [place] [address] RBC (Bld) [#/Vol] 5.30 10*6/uL High 3.90-5.20 [facility] Comment on above: Order Comment: Speci men Type: BLOOD SPECIMENOrdering Facility: [facility] Address: [address] [place], [place] [address] Performed By: #### 5 7021-8 ####[facility] LABIA [id number] [place] [address] WBC (Bld) [#/Vol] 4.66 10*3/uL Normal 3.70-11.00 [facility] Comment on above: Order Comment: Speci men Type: BLOOD SPECIMENOrdering Facility: [facility] Address: [address] [place], [place] [address] Performed By: #### 5 7021-8 ####[facility] LABCLIA [id number] [place] [address] Abs Immature Gran <0.10 k/uL [facility] Basophils (Bld) [#/Vol] 0.03 10*3/uL <0.11 k/uL [facility] Basophils/100 WBC (Bld) 0.6 % [facility] Differential cell count method Nom (Bld) Auto [facility] Eosinophils (Bld) [#/Vol] 0.10 10*3/uL <0.46 k/uL [facility] Eosinophils/100 WBC (Bld) 2.1 % [facility] Erythrocyte distribution width (RBC) [Ratio] 17.6 % High 11.5 - 15.0 % [facility] Hematocrit (Bld) [Volume fraction] 46.2 % High 36.0 - 46.0 % [facility] ic Hemoglobin (Bld) [Mass/Vol] 14.5 g/dL 11.5 - 15.5 g/dL [facility] Immature Gran % 0.2 % [facility] Lymphocytes (Bld) [#/Vol] 1.01 10*3/uL 1.00 - 4.00 k/uL [facility] Lymphocytes/100 WBC (Bld) 21.7 % [facility] MCH (RBC) [Entitic mass] 27.4 pg 26.0 - 34.[address] [facility] MCHC (RBC) [Mass/Vol] 31.4 g/dL 30.5 - 36.0 g/dL [facility] MCV (RBC) [Entitic vol] 87.2 fL 80.0 - 100.[address] [facility] Monocytes (Bld) [#/Vol] 0.43 10*3/uL <0.87 k/uL [facility] Monocytes/100 WBC (Bld) 9.2 % [facility] Neutrophils (Bld) [#/Vol] 3.08 10*3/uL 1.45 - 7.50 k/uL [facility] Neutrophils/100 WBC (Bld) 66.2 % [facility] Nucleated RBC (Bld) [#/Vol] <0.01 k/uL [facility] Nucleated RBC/100 WBC (Bld) [Ratio] 0.0 /100 WBC [facility] ic Platelet mean volume (Bld) [Entitic vol] 9.5 fL 9.0 - 12.7 fL [facility] inic Platelets (Bld) [#/Vol] 190 10*3/uL 150 - 400 k/uL [facility] RBC (Bld) [#/Vol] 5.30 10*6/uL High 3.90 - 5.2 0 m/uL [facility] WBC (Bld) [#/Vol] 4.66 10*3/uL 3.70 - 11. 00 k/uL [facility] CNOVSPon 11-16-2021 CNOVSP Visit (SP) Office (HEMASA) NINA ESCALONA ([id number]) 1935 F Date Time Provider Department 11/16/21 [...] CC: Erik Zimmerman Referring Provider: BINH HERNANDEZ [[id number]] Allergies As of Date: 11/16/2021 Noted Allergy Reaction EYE DROPS RELIEF 11/25/2013 16 - Unknown Comments: Glaucoma eye drops PREDNISONE 11/25/2013 14 - Other: See Comments Comments: Palpitations, sob Date Reviewed: 11/16/2021 Reviewed by: Fiorella Gonzalez PA-C - Fully Assessed Reason for Visit: Anemia [6] Primary Visit Diagnosis:Iron deficiency anemia due to chronic blood loss [D50.0] Order(s):COMP METABOLIC PANEL [SQCMP] Order #: [id number] FUTURE IRON + TIBC [SQIRON] Order #: [id number] FUTURE CBC + DIFF [SQCBCDIF] Order #: [id number] FUTURE FERRITIN BLD [SQFERR] Order #: [id number] FUTURE Disposition: Return today (on 11/16/2021), or if symptoms worsen or fail to improve. Follow-up and Disposition History for Encounter Date Provider Department Center 11/16/2021 [id number], [facility] [place] [facility] Prescriptions as of 11/16/2021 - aspirin 81 [...] as neede (more content not included)... [facility] ARIELNINA Sawyer ([id number]) 1935 F Date Time Provider Department 11/16/21 [...] Status:Closed by MANFRED KELLY on 11/16/21 Normal [facility] Comprehensive metabolic 2000 panelon 11-16-2021 Albumin [Mass/Vol] 4.4 g/dL Normal 3.9-4.9 [facility] Comment on above: Order Comment: Speci men Type: BLOOD SPECIMENOrdering Facility: [facility] Address: [address] [place] [address] Performed By: #### 2 4323-8 ####[facility] LABCLIA [id number] [place] [address] ALP [Catalytic activity/Vol] 45 U/L Normal 34-123 [facility] Comment on above: Order Comment: Speci men Type: BLOOD SPECIMENOrdering Facility: [facility] Address: [address] [address] Performed By: #### 2 4323-8 ####[facility] LABCLIA [id number] [place] [address] ALT [Catalytic activity/Vol] 11 U/L Normal 7-38 [facility] Comment on above: Order Comment: Speci men Type: BLOOD SPECIMENOrdering Facility: [facility] Address: [address] [place] [address] Performed By: #### 2 4323-8 ####[facility] LABCLIA [id number] [place] [address] Anion gap [Moles/Vol] 7 mmol/L Low 9-18 [facility] Comment on above: Order Comment: Speci men Type: BLOOD SPECIMENOrdering Facility: [facility] Address: [address] [place] [address] Performed By: #### 2 4323-8 ####[facility] LABCLIA [id number] [place] [address] AST [Catalytic activity/Vol] 22 U/L Normal 13-35 [facility] Comment on above: Order Comment: Speci men Type: BLOOD SPECIMENOrdering Facility: [facility] Address: [address] [place] [address] Performed By: #### 2 4323-8 ####[facility] LABCLIA [id number] [place] [address] Bilirubin [Mass/Vol] 0.4 mg/dL Normal 0.2-1.3 [facility] Comment on above: Order Comment: Speci men Type: BLOOD SPECIMENOrdering Facility: [facility] Address: [address] [place], [place] [address] Performed By: #### 2 4323-8 ####[facility] LABCLIA [id number] [place] [address] Calcium [Mass/Vol] 9.7 mg/dL Normal 8.5-10.2 [facility] Comment on above: Order Comment: Speci men Type: BLOOD SPECIMENOrdering Facility: [facility] Address: [address] [place], [place] [address] Performed By: #### 2 4323-8 ####[facility] LABCLIA [id number] [place] [address] Chloride [Moles/Vol] 102 mmol/L Normal 97-105 [facility] Comment on above: Order Comment: Speci men Type: BLOOD SPECIMENOrdering Facility: [facility] Address: [address] [place] [address] Performed By: #### 2 4323-8 ####[facility] LABCLIA [id number] [place] [address] CO2 [Moles/Vol] 29 mmol/L Normal 22-30 [facility] Comment on above: Order Comment: Speci men Type: BLOOD SPECIMENOrdering Facility: [facility] Address: [address] [place] [address] Performed By: #### 2 4323-8 ####[facility] LABCLIA [id number] [place] [address] Creatinine [Mass/Vol] 0.85 mg/dL Normal 0.58-0.96 [facility] Comment on above: Order Comment: Speci men Type: BLOOD SPECIMENOrdering Facility: [facility] Address: [address] [place] [address] Performed By: #### 2 4323-8 ####[facility] LABCLIA [id number] [place] [address] ESTIMATED GLOMERULAR FILTRATION RATE 66 mL/min/1.73m??? Normal >=60 [facility] Comment on above: Order Comment: Speci men Type: BLOOD SPECIMENOrdering Facility: [facility] Address: [address] [place] [address] Result Comment: Kala mated Glomerular Filtration Rate [...] actual GFR. Performed By: #### 2 4323-8 ####[facility] LABCLIA [id number] [place] [address] Glucose [Mass/Vol] 60 mg/dL Low 74-99 [facility] Comment on above: Order Comment: Speci men Type: BLOOD SPECIMENOrdering Facility: [facility] Address: [address] [place] [address] Result Comment: The [place] Diabetes Association (ADA) provides guidance for cutoff [...] Standards of Medical Care in Diabetes 2016, [place] Diabetes Association. Diabetes Care. 2016.39(Suppl 1). Performed By: #### 2 4323-8 ####[facility] LABCLIA [id number] [place] [address] Potassium [Moles/Vol] 5.1 mmol/L Normal 3.7-5.1 [facility] Comment on above: Order Comment: Speci men Type: BLOOD SPECIMENOrdering Facility: [facility] Address: [address] [id number] Performed By: #### 2 4323-8 ####[facility] LABCLIA [id number] [place] [address] Protein [Mass/Vol] 6.8 g/dL Normal 6.3-8.0 [facility] Comment on above: Order Comment: Speci men Type: BLOOD SPECIMENOrdering Facility: [facility] Address: [address] [place] [address] Performed By: #### 2 4323-8 ####[facility] LABCLIA [id number] [place] [address] Sodium [Moles/Vol] 138 mmol/L Normal 136-144 [facility] Comment on above: Order Comment: Speci men Type: BLOOD SPECIMENOrdering Facility: [facility] Address: [address] [place] [address] Performed By: #### 2 4323-8 ####[facility] LABCLIA [id number] [place] [address] Urea nitrogen [Mass/Vol] 14 mg/dL Normal 7-21 [facility] Comment on above: Order Comment: Speci men Type: BLOOD SPECIMENOrdering Facility: [facility] Address: [address] [place] [address] Performed By: #### 2 4323-8 ####[facility] LABCLIA [id number] [place] [address] Albumin [Mass/Vol] 4.4 g/dL 3.9 - 4.9 g/dL [facility] ALP [Catalytic activity/Vol] 45 U/L 34 - 123 U/L [facility] ALT [Catalytic activity/Vol] 11 U/L 7 - 38 U/L [facility] Anion gap [Moles/Vol] 7 mmol/L Low 9 - 18 mmol/L [facility] AST [Catalytic activity/Vol] 22 U/L 13 - 35 U/L [facility] Bilirubin [Mass/Vol] 0.4 mg/dL 0.2 - 1 .3 mg/dL [facility] Calcium [Mass/Vol] 9.7 mg/dL 8.5 - 10. 2 mg/dL [facility] Chloride [Moles/Vol] 102 mmol/L 97 - 10 5 mmol/L [facility] CO2 [Moles/Vol] 29 mmol/L 22 - 30 mmol/L [facility] Creatinine [Mass/Vol] 0.85 mg/dL 0.58 - 0.96 mg/dL [facility] Estimated Glomerular Filtration Rate 66 mL/min/1.73m >=60 mL/min/1.73m [facility] Glucose [Mass/Vol] 60 mg/dL Low 74 - 99 mg/dL [facility] Potassium [Moles/Vol] 5.1 mmol/L 3.7 - 5.1 mmol/L [facility] Protein [Mass/Vol] 6.8 g/dL 6.3 - 8.0 g/dL [facility] Sodium [Moles/Vol] 138 mmol/L 136 - 144 mmol/L [facility] Urea nitrogen [Mass/Vol] 14 mg/dL 7 - 21 mg/dL [facility] Ferritin SerPl-mCncon 2021 Ferritin [Mass/Vol] 84.5 ng/mL Normal 14.7-205.1 [facility] Comment on above: Order Comment: Speci men Type: BLOOD SPECIMENOrdering Facility: [facility] Address: [address] [place] [address] Performed By: #### 2 276-4 ####[facility] LABCLIA [id number] [place] [address] [place] Iron and Iron binding capaci ty panelon 11-16-2021 Iron [Mass/Vol] 71 ug/dL Normal 41-186 [facility] Comment on above: Order Comment: Speci men Type: BLOOD SPECIMENOrdering Facility: [facility] Address: [address] [place], [place] [address] Performed By: #### 5 0190-8 ####[facility] LABCLIA [id number] [place] [address] [place] Iron binding capacity [Mass/Vol] 376 ug/dL Normal 232-386 [facility] Comment on above: Order Comment: Speci men Type: BLOOD SPECIMENOrdering Facility: [facility] Address: [address] [place] [id number] Performed By: #### 5 0190-8 ####[facility] LABCLIA [id number] [place] [address] [place] Iron/TIBC [Molar ratio] 18.9 % Normal 15.0-57.0 [facility] Comment on above: Order Comment: Speci men Type: BLOOD SPECIMENOrdering Facility: [facility] Address: [address] [place] [address] Performed By: #### 5 0190-8 ####[facility] LABCLIA [id number] GE GARCIA [id number] [place] [address] [place] [facility] FERRITINon 10-25-2021 Ferritin [Mass/Vol] 79.0 ng/mL Normal 8.0-252.0 [facility] Comment on above: Performed By: #### F ETIBC, FERR ####[facility] [id number] [address]Dr. Devorah James IRON AND TIBCon 10-25-2021 % SATURATION 13.2 % Normal [facility] Comment on above: Performed By: #### F ETIBC, FERR ####[facility] [id number] [address]Dr. Devorah James Iron [Mass/Vol] 38.0 ug/dL Critically low 50.0-170.0 [facility] Comment on above: Performed By: #### F ETIBC, FERR ####[facility] [address] [address]Dr. Devorah James TIBC DIRECT 288.0 ug/dL Normal 250.0-450.0 [facility] Comment on above: Performed By: #### F ETIBC, FERR ####[facility] [address] [address]Dr. Devorah James RETICULOCYTEon 10-25-2021 RETIC 1.23 % Normal 0.60-3.10 [facility] Comment on above: Performed By: #### R ETIC ####[facility] [address] [place], [place] [address]Dr. Devorah Lua 09-28-2021 FREDIS Telephone (HEMASA) ARIELNINA ([id number]) 1935 F Date Time Provider Department 09/28/21 CHARISMA CYR During your visit today, we recorded the following information about you: Charisma Cyr RN 09/28/2021 2:16 PM Signed ----- Message from Sherron Lyon RN sent at 09/28/2021 9:05 AM EDT ----- ----- Message ----- From: Binh Hernandez MD Sent: 09/27/2021 6:12 PM EDT To: Sherron Lyon RN [facility]. Can you please let patient know that ferritin came back normal. No change in recommendations. We will see her back for repeat assessment in 6 weeks. Thanks, K Charisma Cyr RN 09/28/2021 4:00 PM Signed [...] Status:Closed by CHARISMA CYR on 09/28/21 Normal [facility] CBC W Auto Differential pane l (Bld)on 09-26-2021 Basophils (Bld) [#/Vol] 0.05 10*3/uL Normal <0.11 [facility] Comment on above: Order Comment: Speci men Type: BLOOD SPECIMENOrdering Facility: [facility] Address: [address] [place] [address] Performed By: #### 5 7021-8 ####[facility] LABCLIA [id number] [place] [address] Basophils/100 WBC (Bld) 0.9 % Normal [facility] Comment on above: Order Comment: Speci men Type: BLOOD SPECIMENOrdering Facility: [facility] Address: [address] [place] [address] Performed By: #### 5 7021-8 ####[facility] LABCLIA [id number] [place] [address] Differential cell count method Nom (Bld) Auto Normal [facility] Comment on above: Order Comment: Speci men Type: BLOOD SPECIMENOrdering Facility: [facility] Address: [address] [address] Performed By: #### 5 7021-8 ####[facility] LABCLIA [id number] [place] [address] Eosinophils (Bld) [#/Vol] 0.23 10*3/uL Normal <0.46 [facility] Comment on above: Order Comment: Speci men Type: BLOOD SPECIMENOrdering Facility: [facility] Address: [address] [place] [address] Performed By: #### 5 7021-8 ####[facility] LABCLIA [id number] [place] [address] Eosinophils/100 WBC (Bld) 4.1 % Normal [facility] Comment on above: Order Comment: Speci men Type: BLOOD SPECIMENOrdering Facility: [facility] Address: [address] [place] [address] Performed By: #### 5 7021-8 ####[facility] LABCLIA [id number] [place] [address] Erythrocyte distribution width (RBC) [Ratio] 24.6 % High 11.5-15.0 [facility] Comment on above: Order Comment: Speci men Type: BLOOD SPECIMENOrdering Facility: [facility] Address: [address] [place] [address] Performed By: #### 5 7021-8 ####[facility] LABCLIA [id number] [place] [address] Hematocrit (Bld) [Volume fraction] 43.4 % Normal 36.0-46.0 [facility] Comment on above: Order Comment: Speci men Type: BLOOD SPECIMENOrdering Facility: [facility] Address: [address] [place] [address] Performed By: #### 5 7021-8 ####[facility] LABIA [id number] [place] [address] Hemoglobin (Bld) [Mass/Vol] 13.4 g/dL Normal 11.5-15.5 [facility] Comment on above: Order Comment: Speci men Type: BLOOD SPECIMENOrdering Facility: [facility] Address: [address] [place] [address] Performed By: #### 5 7021-8 ####[facility] LABCLIA [id number] [place] [address] IMMATURE GRAN % 0.5 % Normal [facility] Comment on above: Order Comment: Speci men Type: BLOOD SPECIMENOrdering Facility: [facility] Address: [address] [place] [address] Performed By: #### 5 7021-8 ####[facility] LABCLIA [id number] [place] [address] IMMATURE GRAN ABS 0.03 k/uL Normal <0.10 [facility] Comment on above: Order Comment: Speci men Type: BLOOD SPECIMENOrdering Facility: [facility] Address: [address] [place] [address] Performed By: #### 5 7021-8 ####[facility] LABCLIA [id number] [place] [address] Lymphocytes (Bld) [#/Vol] 1.30 10*3/uL Normal 1.00-4.00 [facility] Comment on above: Order Comment: Speci men Type: BLOOD SPECIMENOrdering Facility: [facility] Address: [address] [place] [address] Performed By: #### 5 7021-8 ####[facility] LABCLIA [id number] [place] [address] Lymphocytes/100 WBC (Bld) 23.2 % Normal [facility] Comment on above: Order Comment: Speci men Type: BLOOD SPECIMENOrdering Facility: [facility] Address: [address] [place] [address] Performed By: #### 5 7021-8 ####[facility] LABCLIA [id number] [place] [address] MCH (RBC) [Entitic mass] 25.3 pg Low 26.0-34.0 [facility] Comment on above: Order Comment: Speci men Type: BLOOD SPECIMENOrdering Facility: [facility] Address: [address] [place] [address] Performed By: #### 5 7021-8 ####[facility] LABCLIA [id number] [place] [address] MCHC (RBC) [Mass/Vol] 30.9 g/dL Normal 30.5-36.0 [facility] Comment on above: Order Comment: Speci men Type: BLOOD SPECIMENOrdering Facility: [facility] Address: [address] [place] [address] Performed By: #### 5 7021-8 ####[facility] LABIA [id number] [place] [address] MCV (RBC) [Entitic vol] 81.9 fL Normal 80.0-100.0 [facility] Comment on above: Order Comment: Speci men Type: BLOOD SPECIMENOrdering Facility: [facility] Address: [address] [place] [address] Performed By: #### 5 7021-8 ####[facility] LABCLIA [id number] [place] [address] Monocytes (Bld) [#/Vol] 0.52 10*3/uL Normal <0.87 [facility] Comment on above: Order Comment: Speci men Type: BLOOD SPECIMENOrdering Facility: [facility] Address: [address] [place] [address] Performed By: #### 5 7021-8 ####[facility] LABCLIA [id number] [place] [address] Monocytes/100 WBC (Bld) 9.3 % Normal [facility] Comment on above: Order Comment: Speci men Type: BLOOD SPECIMENOrdering Facility: [facility] Address: [address] [place] [address] Performed By: #### 5 7021-8 ####[facility] LABCLIA [id number] [place] [address] Neutrophils (Bld) [#/Vol] 3.47 10*3/uL Normal 1.45-7.50 [facility] Comment on above: Order Comment: Speci men Type: BLOOD SPECIMENOrdering Facility: [facility] Address: [address] [place] [address] Performed By: #### 5 7021-8 ####[facility] LABCLIA [id number] [place] [address] Neutrophils/100 WBC (Bld) 62.0 % Normal [facility] Comment on above: Order Comment: Speci men Type: BLOOD SPECIMENOrdering Facility: [facility] Address: [address] [place] [address] Performed By: #### 5 7021-8 ####[facility] LABCLIA [id number] [place] [address] Nucleated RBC (Bld) [#/Vol] 10*3/uL Normal <0.01 [facility] Comment on above: Order Comment: Speci men Type: BLOOD SPECIMENOrdering Facility: [facility] Address: [address] [place] [address] Performed By: #### 5 7021-8 ####[facility] LABCLIA [id number] [place] [address] Nucleated RBC/100 WBC (Bld) [Ratio] 0.0 /100 WBC Normal [facility] Comment on above: Order Comment: Speci men Type: BLOOD SPECIMENOrdering Facility: [facility] Address: [address] [place], [place] [id number] Performed By: #### 5 7021-8 ####[facility] LABCLIA [id number] [place] [address] Platelet mean volume (Bld) [Entitic vol] 9.9 fL Normal 9.0-12.7 [facility] Comment on above: Order Comment: Speci men Type: BLOOD SPECIMENOrdering Facility: [facility] Address: [address] [place] [address] Performed By: #### 5 7021-8 ####[facility] LABCLIA [id number] [place] [address] Platelets (Bld) [#/Vol] 175 10*3/uL Normal 150-400 [facility] Comment on above: Order Comment: Speci men Type: BLOOD SPECIMENOrdering Facility: [facility] Address: [address] [place] [address] Performed By: #### 5 7021-8 ####[facility] LABIA [id number] [place] [address] RBC (Bld) [#/Vol] 5.30 10*6/uL High 3.90-5.20 [facility] Comment on above: Order Comment: Speci men Type: BLOOD SPECIMENOrdering Facility: [facility] Address: [address] [place] [address] Performed By: #### 5 7021-8 ####[facility] LABIA [id number] [place] [address] WBC (Bld) [#/Vol] 5.60 10*3/uL Normal 3.70-11.00 [facility] Comment on above: Order Comment: Speci men Type: BLOOD SPECIMENOrdering Facility: [facility] Address: [address] [place] [address] Performed By: #### 5 7021-8 ####[facility] LABIA [id number] [place] [address] Abs Immature Gran 0.03 k/uL <0.10 k/uL [facility] Basophils (Bld) [#/Vol] 0.05 10*3/uL <0.11 k/uL [facility] Basophils/100 WBC (Bld) 0.9 % [facility] Differential cell count method Nom (Bld) Auto [facility] Eosinophils (Bld) [#/Vol] 0.23 10*3/uL <0.46 k/uL [facility] Eosinophils/100 WBC (Bld) 4.1 % [facility] Erythrocyte distribution width (RBC) [Ratio] 24.6 % High 11.5 - 15.0 % [facility] Hematocrit (Bld) [Volume fraction] 43.4 % 36.0 - 46.0 % [facility] ic Hemoglobin (Bld) [Mass/Vol] 13.4 g/dL 11.5 - 15.5 g/dL [facility] Immature Gran % 0.5 % [facility] Lymphocytes (Bld) [#/Vol] 1.30 10*3/uL 1.00 - 4.00 k/uL [facility] Lymphocytes/100 WBC (Bld) 23.2 % [facility] MCH (RBC) [Entitic mass] 25.3 pg Low 26.0 - 34.[address] [facility] MCHC (RBC) [Mass/Vol] 30.9 g/dL 30.5 - 36.0 g/dL [facility] MCV (RBC) [Entitic vol] 81.9 fL 80.0 - 100.[address] [facility] Monocytes (Bld) [#/Vol] 0.52 10*3/uL <0.87 k/uL [facility] Monocytes/100 WBC (Bld) 9.3 % [facility] Neutrophils (Bld) [#/Vol] 3.47 10*3/uL 1.45 - 7.50 k/uL [facility] Neutrophils/100 WBC (Bld) 62.0 % [facility] Nucleated RBC (Bld) [#/Vol] 10*3/uL <0.01 k/uL [facility] Nucleated RBC/100 WBC (Bld) [Ratio] 0.0 /100 WBC [facility] Platelet mean volume (Bld) [Entitic vol] 9.9 fL 9.0 - 12.7 fL [facility] inic Platelets (Bld) [#/Vol] 175 10*3/uL 150 - 400 k/uL [facility] RBC (Bld) [#/Vol] 5.30 10*6/uL High 3.90 - 5.2 0 m/uL [facility] WBC (Bld) [#/Vol] 5.60 10*3/uL 3.70 - 11. 00 k/uL [facility] CNOVSPon 09-26-2021 CNOVSP Visit (SP) Office ([place]) NINA ESCALONA ([id number]) 1935 F Date Time Provider Department 09/26/21 [...] which included preparing to see the patient, pukz-ma-nnsk patient care, completing clinical documentation, obtaining and/or reviewing separately obtained history, performing a medically appropriate examination, counseling and educating the patient/family/careg iver, ordering medications, tests, or procedures, independently interpreting results (not separately reported) and communicating results to the patient/family/careg iver. CC: Erik Zimmerman Referring Provider: BINH HERNANDEZ [[id number]] Allergies As of Date: 09/26/2021 Noted Allergy Reaction EYE DROPS RELIEF 11/25/2013 16 - Unknown Comments: Glaucoma eye drops PREDNISONE 11/25/2013 14 - Other: See Comments Comments: Palpitations, sob Date Reviewed: 09/26/2021 Reviewed by: Sade Houghtlen Ma - Fully Assessed Reason for Visit: Anemia [6] Primary Visit Diagnosis:Iron deficiency anemia due to chronic blood loss [D50.0] Order(s):CBC + DIFF [SQCBCDIF] Order #: [id number] FUTURE IRON + TIBC [SQIRON] Order #: [id number] FUTURE FERRITIN BLD [SQFERR] Order #: [id number] FUTURE famotidine (PEPCID) 20 mg tabletTake 1 tablet by mouth twice daily.Disp: 60 tabletRfl: 3 CBC + DIFF [SQCBCDIF] Order #: [id number] FUTURE IRON + TIBC [SQIRON] Order #: [id number] FUTURE FERRITIN BLD [SQFERR] Order #: [id number] FUTURE Disposition: Return in about 6 weeks (around 11/07/2021). Follow-up and Disposition History for Encounter Date Provider Department Center 09/26/2021 [id number] HERNANDEZ Prescriptions as of 09/26/2021 - aspirin 81 mg chewable tablet Take 81 mg by mouth once daily. - famotidine (PEPCID) 20 mg tablet Take 1 tablet by mouth twice daily. - latanoprost (XALATAN) 0.005 % ophthalmic solution INSTILL 1 DROP RIGHT EYE [place] (more content not included)... Normal [facility] Ferritin SerPl-mCncon 2021 Ferritin [Mass/Vol] 116.0 ng/mL Normal 14.7-205.1 [facility] Comment on above: Order Comment: Nesha parikh Type: BLOOD SPECIMENOrdering Facility: [facility] Address: [address] [place], [place] [id number] Performed By: #### 5 0190-8, 2276-4 ####[facility] LABCLIA [id number] [place] [address] [place] Iron and Iron binding capaci ty panelon 09-26-2021 Iron [Mass/Vol] 39 ug/dL Low 41-186 [facility] Comment on above: Order Comment: Nesha parikh Type: BLOOD SPECIMENOrdering Facility: [facility] Address: [address] [place], [place] [address] Performed By: #### 5 0190-8, 6-4 ####[facility] LABCLIA [id number] [place] [address] [place] Iron binding capacity [Mass/Vol] 348 ug/dL Normal 232-386 [facility] Comment on above: Order Comment: Speci men Type: BLOOD SPECIMENOrdering Facility: [facility] Address: [address] [place] [address] Performed By: #### 5 0190-8, 2275-4 ####[facility] LABCLIA [id number] [address] [place] Iron/TIBC [Molar ratio] 11.2 % Low 15.0-57.0 [facility] Comment on above: Order Comment: Speci men Type: BLOOD SPECIMENOrdering Facility: [facility] Address: [address] [place] [address] Performed By: #### 5 0190-8, 2275-4 ####[facility] LABCLIA [id number] [address] [place] PROF CHEM 8 (BAS METB)on Anion gap [Moles/Vol] 12.6 mmol/L Normal [facility] Comment on above: Performed By: #### B MP ####[facility] [address] [place], [place] [address]Dr. Devorah James Calcium [Mass/Vol] 8.4 mg/dL Critically low 8.5-10.1 Th [facility] Comment on above: Performed By: #### B MP ####[facility] [address] [place], [place] [address]Dr. Devorah James Chloride [Moles/Vol] 104 mmol/L Normal 98-107 [facility] Comment on above: Performed By: #### B MP ####[facility] [address] [place], [place] [address]Dr. Devorah James CO2 [Moles/Vol] 25.8 mmol/L Normal 21.0-32.0 [facility] Comment on above: Performed By: #### B MP ####[facility] [address] [address]Dr. Devorah James Creatinine [Mass/Vol] 0.96 mg/dL Normal 0.55-1.02 [facility] Comment on above: Performed By: #### B MP ####[facility] [address] [address]Dr. Devorah James EGFR-AF PAKISTANI >60 Normal >=60 [facility] Comment on above: Performed By: #### B MP ####[facility] [address] [address]Dr. Devorah James EGFR-NON AF [place]ANI 55 mL/min/1.73m2 Critically low >=60 [facility] Comment on above: Performed By: #### B MP ####[facility] [address] [place], [place] [address]Dr. Devorah James Glucose [Mass/Vol] 74 mg/dL Normal 74-106 [facility] Comment on above: Performed By: #### B MP ####[facility] [address] [place], [place] [address]Dr. Devorah James Potassium [Moles/Vol] 4.4 mmol/L Normal 3.5-5.1 [facility] Comment on above: Performed By: #### B MP ####[facility] [address] [place], [place] [address]Dr. Devorah James Sodium [Moles/Vol] 138 mmol/L Normal 136-145 The [facility] Comment on above: Performed By: #### B MP ####[facility] [address] [place], [place] [address]Dr. Devorah James Urea nitrogen [Mass/Vol] 16.0 mg/dL Normal 7.0-18.0 [facility] Comment on above: Performed By: #### B MP ####[facility] [address] [place], [place] [address]Dr. Devorah James Urea nitrogen/Creatinine [Mass ratio] 16.7 mg/mg Normal [facility] Comment on above: Performed By: #### B MP ####[facility] [address] [address]Dr. Devorah James VITAMIN D 25 OHon 09-20-2021 VIT D 25-OH 51.6 ng/mL Normal [facility] Comment on above: Performed By: #### V ITAD #### [facility] [address] [place] [address] Dr. Devorah James VIT D RANGES SEE BELOW Normal [facility] Comment on above: Result Comment: <20 ng/mL Vit D deficient 20 - <30 ng/mL Vit D insufficient 30 - 100 ng/mL Vit D sufficient >100 ng/mL Potential Toxicity Performed By: #### V ITAD #### [facility] [address] [place] [address] Dr. Devorah James LACTOFERRIN FECAL QUANTon Lactoferrin, Fecal, Quant. 4.46 ug/mL(g) Normal 0.00-7.24 [facility] Comment on above: Result Comment: [...] (IBS). Performed By: #### L ACTFQ #### [facility] [address] [place] [address] Dr. Devorah James C. DIFF PCRon 09-02-2021 C. DIFFICILE PCR Negative Normal NEGATIVE [facility] Comment on above: Performed By: #### C DIFPOC #### [facility] [address] [place] [address] Dr. Devorah James OCC BLD IMMUNO SCREENon OCCULT BLOOD Negative Normal NEGATIVE [facility] Comment on above: Performed By: #### O BSCRN ####[facility] [address] [address]Dr. Devorah James MG MAMM SCREEN 3D VALERIY CADon 08-04-2021 MG MAMM SCREEN 3D VALERIY CAD Patient: NINA ESCALONA. Exam Date: 08/04/2021 : 1935 Gender:F Ordering : DR ERIK ZIMMERMAN D.O. Admission #: [id number] Family : Order #: [id number] CLICK HERE TO VIEW EXAM RADIOLOGY REPORT [...] panc/liver cancer at age 74. LOCATION: [facility] BREAST COMPOSITION: Scattered areas fibroglandular density. [...] Aviles M.D. on 08/04/2021 at 13:54 Normal [facility] CNOVSPon 07-26-2021 CNOVSP Visit (SP) Office ([place]) NINA ESCALONA ([id number]) 1935 F Date Time Provider Department 07/26/21 [...] which included preparing to see the patient, zhnx-ss-dkyo patient care, completing clinical documentation, obtaining and/or reviewing separately obtained history, performing a medically appropriate examination, counseling and educating the patient/family/careg iver, ordering medications, tests, or procedures, independently interpreting results (not separately reported) and communicating results to the patient/family/careg iver. CC: Erik Zimmerman Referring Provider: BINH HERNANDEZ [[id number]] Allergies As of Date: 07/26/2021 Noted Allergy [...] for Encounter Date Provider Department Center 07/26/2021 [id number] HERNANDEZ [facility] Prescriptions as of 07/26/2021 - latanoprost (XALATAN) [...] (HCC) [M31.4] (more content not included)... Normal [facility] 07-18-2021 CNPN Telephone ([place]) NINA ESCALONA ([id number]) 1935 F Date Time Provider Department 07/18/21 [...] Status:Closed by CHARISMA HENDERSON on 07/18/21 Normal [facility] CBC AUTO DIFFon 07-12-2021 BASO # 0.1 103/ul Normal 0.0-0.1 [facility] Comment on above: Performed By: #### C BC #### [facility] [address] [place] [address] Dr. Devorah James Basophils/100 WBC (Bld) 1.1 % Normal 0.2-2.0 [facility] Comment on above: Performed By: #### C BC #### [facility] [address] [address] [address] Devorah James EO # 0.3 103/ul Normal 0.0-0.7 [facility] Comment on above: Performed By: #### C BC #### [facility] [address] [address] [address] Devorah James Eosinophils/100 WBC (Bld) 4.8 % Normal 0.9-7.0 [facility] Comment on above: Performed By: #### C BC #### [facility] [address] [place] [address] Dr. Devorah James Erythrocyte distribution width (RBC) [Ratio] 24.4 % Critically high 11.0-15.0 [facility] Comment on above: Performed By: #### C BC #### [facility] [address] [place] [address] Dr. Devorah James Hematocrit (Bld) [Volume fraction] 35.0 % Critically low 36.0-48.0 [facility] Comment on above: Performed By: #### C BC #### [facility] [address] [place] [address] Dr. Devorah James Hemoglobin (Bld) [Mass/Vol] 9.6 g/dL Critically low 12.0-16.0 [facility] Comment on above: Performed By: #### C BC #### [facility] [address] [place] [address] Dr. Devorah James IG # 0.02 10e3/ul Normal 0.00-0.03 [facility] Comment on above: Performed By: #### C BC #### [facility] [address] [place] [address] Dr. Devorah James IG % 0.4 % Normal 0.0-0.5 [facility] Comment on above: Performed By: #### C BC #### [facility] [address] [place] [address] Dr. Devorah James LYMPH # 1.4 103/ul Normal 1.2-3.8 [facility] Comment on above: Performed By: #### C BC #### [facility] [address] [place] [address] Dr. Devorah James Lymphocytes/100 WBC (Bld) 24.7 % Normal 20.5-60.0 [facility] Comment on above: Performed By: #### C BC #### [facility] [address] [place] [address] Dr. Devorah James MANUAL DIFF REQ NO Normal [facility] Comment on above: Performed By: #### C BC #### [facility] [address] [address] [address] Devorah James MCH (RBC) [Entitic mass] 20.2 pg Critically low 26.7-34.0 [facility] Comment on above: Performed By: #### C BC #### [facility] [address] [place] [address] Dr. Devorah James MCHC (RBC) [Mass/Vol] 27.4 g/dL Critically low 29.9-35.2 [facility] Comment on above: Performed By: #### C BC #### [facility] [address] [place] [address] Dr. Devorah James MCV (RBC) [Entitic vol] 73.7 fL Critically low 81.0-99.0 [facility] Comment on above: Performed By: #### C BC #### [facility] [address] [place] [address] Dr. Devorah James MONO # 0.6 103/ul Normal 0.3-0.8 [facility] Comment on above: Performed By: #### C BC #### [facility] [address] [place] [address] Dr. Devorah James Monocytes/100 WBC (Bld) 11.2 % Normal 1.7-12.0 [facility] Comment on above: Performed By: #### C BC #### [facility] [address] [place] [address] Dr. Devorah James NEUT # 3.2 103/ul Normal 1.4-6.5 [facility] Comment on above: Performed By: #### C BC #### [facility] [address] [place] [address] Dr. Devorah James Neutrophils/100 WBC (Bld) 57.8 % Normal 43.0-75.0 [facility] Comment on above: Performed By: #### C BC #### [facility] [address] [place] [address] Dr. Devorah James Platelet mean volume (Bld) [Entitic vol] 10.2 fL Normal 9.5-13.5 [facility] Comment on above: Performed By: #### C BC #### [facility] [address] [place] [address] Dr. Devorah James PLT 212 103/ul Normal 150-450 [facility] Comment on above: Performed By: #### C BC #### [facility] [address] [place] [address] Dr. Devorah James RBC 4.75 106/ul Normal 4.20-5.40 [facility] Comment on above: Result Comment: hypo chromic 2+, anisocytosis, microcytic Performed By: #### C BC #### [facility] [address] [place] [address] Dr. Devorah James WBC 5.5 103/ul Normal 4.0-11.0 [facility] Comment on above: Performed By: #### C BC #### [facility] [address] [place] [address] Dr. Devorah James FERRITINon 07-12-2021 Ferritin [Mass/Vol] 86.0 ng/mL Normal 8.0-252.0 [facility] Comment on above: Performed By: #### F ERR, FETIBC #### [facility] [address] [place] [address] Dr. Devorah James IRON AND TIBCon 07-12-2021 % SATURATION 6.1 % Normal [facility] Comment on above: Performed By: #### F ERR, FETIBC #### [facility] [address] [place] [address] Dr. Devorah James Iron [Mass/Vol] 24.0 ug/dL Critically low 50.0-170.0 [facility] Comment on above: Performed By: #### F ERR, FETIBC #### [facility] [address] [place] [address] Dr. Devorah James TIBC DIRECT 396.0 ug/dL Normal 250.0-450.0 [facility] Comment on above: Performed By: #### F ERR, FETIBC #### [facility] [address] [place] [address] Dr. Devorah Lua 06-24-2021 CNPN Telephone ([place]) NINA ESCALONA ([id number]) 1935 F Date Time Provider Department 06/24/21 [...] Encounter Status:Closed by CHARISMA HENDERSON on 06/24/21 [facility] 06-16-2021 [facility] Telephone ([facility]) NINA ESCALONA ([id number]) 1935 F Date Time Provider Department 06/16/21 DARY BRADEN [facility] During your visit today, we recorded [...] Status:Closed by DARY BRADEN on 06/28/21 Normal [facility] CBC W Auto Differential pane l (Bld)on 06-14-2021 Basophils (Bld) [#/Vol] 0.06 10*3/uL Normal <0.11 [facility] Comment on above: Order Comment: Speci men Type: BLOOD SPECIMENOrdering Facility: [facility] Address: [address] [place] [id number] Performed By: #### 1 4196-0, 40588-9 ####[facility] LABCLIA [id number] [place] [address] Basophils/100 WBC (Bld) 1.2 % Normal [facility] Comment on above: Order Comment: Speci men Type: BLOOD SPECIMENOrdering Facility: [facility] Address: [address] [place] [address] Performed By: #### 1 4196-0, 32638-7 ####[facility] LABCLIA [id number] [place] [address] Differential cell count method Nom (Bld) Auto Normal [facility] Comment on above: Order Comment: Speci men Type: BLOOD SPECIMENOrdering Facility: [facility] Address: [address] [place] [address] Performed By: #### 1 4196-0, 88975-3 ####[facility] LABIA [id number] [place] [address] Eosinophils (Bld) [#/Vol] 0.18 10*3/uL Normal <0.46 [facility] Comment on above: Order Comment: Speci men Type: BLOOD SPECIMENOrdering Facility: [facility] Address: [address] [place] [address] Performed By: #### 1 4196-0, 95999-0 ####[facility] LABIA [id number] [place] [address] Eosinophils/100 WBC (Bld) 3.6 % Normal [facility] Comment on above: Order Comment: Speci men Type: BLOOD SPECIMENOrdering Facility: [facility] Address: [address] [place] [address] Performed By: #### 1 4196-0, 22658-3 ####[facility] LABIA [id number] [place] [address] Erythrocyte distribution width (RBC) [Ratio] 18.1 % High 11.5-15.0 [facility] Comment on above: Order Comment: Speci men Type: BLOOD SPECIMENOrdering Facility: [facility] Address: [address] [place] [address] Performed By: #### 1 4196-0, 62323-8 ####[facility] LABCLIA [id number] [place] [address] Hematocrit (Bld) [Volume fraction] 32.6 % Low 36.0-46.0 [facility] Comment on above: Order Comment: Speci men Type: BLOOD SPECIMENOrdering Facility: [facility] Address: [address] [place] [address] Performed By: #### 1 4196-0, 88019-4 ####[facility] LABCLIA [id number] [place] [address] Hemoglobin (Bld) [Mass/Vol] 8.9 g/dL Low 11.5-15.5 [facility] Comment on above: Order Comment: Speci men Type: BLOOD SPECIMENOrdering Facility: [facility] Address: [address] [place] [address] Performed By: #### 1 4196-0, 55955-2 ####[facility] LABCLIA [id number] [place] [address] IMMATURE GRAN % 0.4 % Normal [facility] Comment on above: Order Comment: Speci men Type: BLOOD SPECIMENOrdering Facility: [facility] Address: [address] [place] [address] Performed By: #### 1 4196-0, 62139-4 ####[facility] LABCLIA [id number] [place] [address] IMMATURE GRAN ABS <0.03 Normal <0.10 [facility] Comment on above: Order Comment: Speci men Type: BLOOD SPECIMENOrdering Facility: [facility] Address: [address] [place] [address] Performed By: #### 1 4196-0, 53286-6 ####[facility] LABCLIA [id number] [place] [address] Lymphocytes (Bld) [#/Vol] 1.07 10*3/uL Normal 1.00-4.00 [facility] Comment on above: Order Comment: Speci men Type: BLOOD SPECIMENOrdering Facility: [facility] Address: [address] [place], [place] [address] Performed By: #### 1 4196-0, 95687-2 ####[facility] LABCLIA [id number] [place] [address] Lymphocytes/100 WBC (Bld) 21.6 % Normal [facility] Comment on above: Order Comment: Speci men Type: BLOOD SPECIMENOrdering Facility: [facility] Address: [address] [place], [place] [address] Performed By: #### 1 4196-0, 70020-3 ####[facility] LABIA [id number] [place] [address] MCH (RBC) [Entitic mass] 19.0 pg Low 26.0-34.0 [facility] Comment on above: Order Comment: Speci men Type: BLOOD SPECIMENOrdering Facility: [facility] Address: [address] [place] [address] Performed By: #### 1 4196-0, 67266-0 ####[facility] LABIA [id number] [place] [address] MCHC (RBC) [Mass/Vol] 27.3 g/dL Low 30.5-36.0 [facility] Comment on above: Order Comment: Speci men Type: BLOOD SPECIMENOrdering Facility: [facility] Address: [address] [place], [place] [address] Performed By: #### 1 4196-0, 16990-7 ####[facility] LABIA [id number] [place] [address] MCV (RBC) [Entitic vol] 69.7 fL Low 80.0-100.0 [facility] Comment on above: Order Comment: Speci men Type: BLOOD SPECIMENOrdering Facility: [facility] Address: [address] [place], [place] [address] Performed By: #### 1 4196-0, 85767-5 ####[facility] LABCLIA [id number] [place] [address] Monocytes (Bld) [#/Vol] 0.68 10*3/uL Normal <0.87 [facility] Comment on above: Order Comment: Speci men Type: BLOOD SPECIMENOrdering Facility: [facility] Address: [address] [place], [place] [address] Performed By: #### 1 4196-0, ####[facility] LABCLIA [id number] [place] [address] Monocytes/100 WBC (Bld) 13.7 % Normal [facility] Comment on above: Order Comment: Speci men Type: BLOOD SPECIMENOrdering Facility: [facility] Address: [address] [place] [address] Performed By: #### 1 4196-0, 26502-7 ####[facility] LABCLIA [id number] [place] [address] Neutrophils (Bld) [#/Vol] 2.94 10*3/uL Normal 1.45-7.50 [facility] Comment on above: Order Comment: Speci men Type: BLOOD SPECIMENOrdering Facility: [facility] Address: [address] [place], [place] [address] Performed By: #### 1 4196-0, ####[facility] LABCLIA [id number] [place] [address] Neutrophils/100 WBC (Bld) 59.5 % Normal [facility] Comment on above: Order Comment: Speci men Type: BLOOD SPECIMENOrdering Facility: [facility] Address: [address] [place], [place] [address] Performed By: #### 1 4196-0, 68245-7 ####[facility] LABCLIA [id number] [place] [address] Nucleated RBC (Bld) [#/Vol] 10*3/uL Normal <0.01 [facility] Comment on above: Order Comment: Speci men Type: BLOOD SPECIMENOrdering Facility: [facility] Address: [address] [place] [address] Performed By: #### 1 4196-0, 12316-2 ####[facility] LABIA [id number] [place] [address] Nucleated RBC/100 WBC (Bld) [Ratio] 0.0 /100 WBC Normal [facility] Comment on above: Order Comment: Speci men Type: BLOOD SPECIMENOrdering Facility: [facility] Address: [address] [place] [address] Performed By: #### 1 4196-0, 43844-3 ####[facility] LABIA [id number] [place] [address] Platelet mean volume (Bld) [Entitic vol] 10.4 fL Normal 9.0-12.7 [facility] Comment on above: Order Comment: Speci men Type: BLOOD SPECIMENOrdering Facility: [facility] Address: [address] [place] [address] Performed By: #### 1 4196-0, 54109-9 ####[facility] LABIA [id number] [place] [address] Platelets (Bld) [#/Vol] 230 10*3/uL Normal 150-400 [facility] Comment on above: Order Comment: Speci men Type: BLOOD SPECIMENOrdering Facility: [facility] Address: [address] [place] [address] Result Comment: Samp le checked for clot Performed By: #### 1 4196-0, 34410-8 ####[facility] LABCLIA [id number] [place] [address] RBC (Bld) [#/Vol] 4.68 10*6/uL Normal 3.90-5.20 [facility] Comment on above: Order Comment: Speci men Type: BLOOD SPECIMENOrdering Facility: [facility] Address: [address] [place] [address] Performed By: #### 1 4196-0, 74917-1 ####[facility] LABCLIA [id number] [place] [address] WBC (Bld) [#/Vol] 4.95 10*3/uL Normal 3.70-11.00 [facility] Comment on above: Order Comment: Speci men Type: BLOOD SPECIMENOrdering Facility: [facility] Address: [address] [place] [address] Performed By: #### 1 4196-0, 15919-1 ####[facility] LABCLIA [id number] [place] [address] Abs Immature Gran <0.03 <0.10 k/uL [facility] Basophils (Bld) [#/Vol] 0.06 10*3/uL <0.11 k/uL [facility] Basophils/100 WBC (Bld) 1.2 % [facility] Differential cell count method Nom (Bld) Auto [facility] Eosinophils (Bld) [#/Vol] 0.18 10*3/uL <0.46 k/uL [facility] Eosinophils/100 WBC (Bld) 3.6 % [facility] Erythrocyte distribution width (RBC) [Ratio] 18.1 % High 11.5 - 15.0 % [facility] Hematocrit (Bld) [Volume fraction] 32.6 % Low 36.0 - 46.0 % [facility] ic Hemoglobin (Bld) [Mass/Vol] 8.9 g/dL Low 11.5 - 15.5 g/dL [facility] Immature Gran % 0.4 % [facility] Lymphocytes (Bld) [#/Vol] 1.07 10*3/uL 1.00 - 4.00 k/uL [facility] Lymphocytes/100 WBC (Bld) 21.6 % [facility] MCH (RBC) [Entitic mass] 19.0 pg Low 26.0 - 34.[address] [facility] MCHC (RBC) [Mass/Vol] 27.3 g/dL Low 30.5 - 36.0 g/dL [facility] MCV (RBC) [Entitic vol] 69.7 fL Low 80.0 - 100.[address] [facility] Monocytes (Bld) [#/Vol] 0.68 10*3/uL <0.87 k/uL [facility] Monocytes/100 WBC (Bld) 13.7 % [facility] Neutrophils (Bld) [#/Vol] 2.94 10*3/uL 1.45 - 7.50 k/uL [facility] Neutrophils/100 WBC (Bld) 59.5 % [facility] Nucleated RBC (Bld) [#/Vol] 10*3/uL <0.01 k/uL [facility] Nucleated RBC/100 WBC (Bld) [Ratio] 0.0 /100 WBC [facility] ic Platelet mean volume (Bld) [Entitic vol] 10.4 fL 9.0 - 12.7 fL [facility] inic Platelets (Bld) [#/Vol] 230 10*3/uL 150 - 400 k/uL [facility] RBC (Bld) [#/Vol] 4.68 10*6/uL 3.90 - 5.2 0 m/uL [facility] WBC (Bld) [#/Vol] 4.95 10*3/uL 3.70 - 11. 00 k/uL [facility] CNOVSPon 06-14-2021 OVS Visit (SP) Office ([place]) NINA ESCALONA ([id number]) 1935 F Date Time Provider Department 06/14/21 [...] which included preparing to see the patient, [id number] patient care, completing clinical documentation, obtaining and/or reviewing separately obtained history, performing a medically appropriate examination, counseling and educating the patient/family/careg iver, ordering medications, tests, or procedures, independently interpreting results (not separately reported) and communicating results to the patient/family/careg iver. CC: Erik Zimmerman Referring Provider: ERIK ZIMMERMAN [[id number]] Allergies As of Date: 06/14/2021 Noted Allergy [...] [D50.0] Order(s):CBC + DIFF [SQCBCDIF] Order #: [id number] FUTURE COMP METABOLIC PANEL [SQCMP] Order #: [id number] FUTURE IRON + TIBC [SQIRON] Order #: [id number] FUTURE FERRITIN BLD [SQFERR] Order #: [id number] FUTURE RETIC COUNT [SQRETIC] Order #: [id number] FUTURE CONSULT TO GASTROENTEROLOGY [90 (more content not included)... Normal [facility] CNPNon 06-14-2021 CNPN Telephone (NCCAP) NINA ESCALONA ([id number]) 1935 F Date Time Provider Department 06/14/21 MELIDAYESSICABINH NCCAP During your visit today, we recorded the following information about you: Lilian Valdez Sec 06/14/2021 12:33 PM Signed Patient is being referred to Gi Dr. Espana. Their office will call the patient to schedule this appt. Jackie, Please fax records to his office. Info has been printed for faxing and is in your mailbox. Thank you Devi Lawrence [facility] 06/14/2021 1:14 PM Signed Records faxed [...] Status:Closed by LILIAN ROGERS on 06/22/21 Normal [facility] Comprehensive metabolic 2000 panelon 06-14-2021 Albumin [Mass/Vol] 4.6 g/dL Normal 3.9-4.9 [facility] Comment on above: Order Comment: Speci men Type: BLOOD SPECIMENOrdering Facility: [facility] Address: [address] [address] Performed By: #### 2 4323-8 ####[facility] LABCLIA [id number] [place] [address] ALP [Catalytic activity/Vol] 42 U/L Normal 34-123 [facility] Comment on above: Order Comment: Speci men Type: BLOOD SPECIMENOrdering Facility: [facility] Address: [address] [address] Performed By: #### 2 4323-8 ####[facility] LABCLIA [id number] [place] [address] ALT [Catalytic activity/Vol] 12 U/L Normal 7-38 [facility] Comment on above: Order Comment: Speci men Type: BLOOD SPECIMENOrdering Facility: [facility] Address: [address] [place] [address] Performed By: #### 2 4323-8 ####[facility] LABCLIA [id number] [place] [address] Anion gap [Moles/Vol] 8 mmol/L Low 9-18 [facility] Comment on above: Order Comment: Speci men Type: BLOOD SPECIMENOrdering Facility: [facility] Address: [address] [place] [address] Performed By: #### 2 4323-8 ####[facility] LABCLIA [id number] [place] [address] AST [Catalytic activity/Vol] 24 U/L Normal 13-35 [facility] Comment on above: Order Comment: Speci men Type: BLOOD SPECIMENOrdering Facility: [facility] Address: [address] [place] [address] Performed By: #### 2 4323-8 ####[facility] LABCLIA [id number] [place] [address] Bilirubin [Mass/Vol] 0.3 mg/dL Normal 0.2-1.3 [facility] Comment on above: Order Comment: Speci men Type: BLOOD SPECIMENOrdering Facility: [facility] Address: [address] [place] [address] Performed By: #### 2 4323-8 ####[facility] LABCLIA [id number] [place] [address] Calcium [Mass/Vol] 9.5 mg/dL Normal 8.5-10.2 [facility] Comment on above: Order Comment: Speci men Type: BLOOD SPECIMENOrdering Facility: [facility] Address: [address] [place] [address] Performed By: #### 2 4323-8 ####[facility] LABCLIA [id number] [place] [address] Chloride [Moles/Vol] 102 mmol/L Normal 97-105 [facility] Comment on above: Order Comment: Speci men Type: BLOOD SPECIMENOrdering Facility: [facility] Address: [address] [place] [address] Performed By: #### 2 4323-8 ####[facility] LABCLIA [id number] [place] [address] CO2 [Moles/Vol] 26 mmol/L Normal 22-30 [facility] Comment on above: Order Comment: Speci men Type: BLOOD SPECIMENOrdering Facility: [facility] Address: [address] [place] [address] Performed By: #### 2 4323-8 ####[facility] LABCLIA [id number] [place] [address] Creatinine [Mass/Vol] 0.98 mg/dL High 0.58-0.96 [facility] Comment on above: Order Comment: Speci men Type: BLOOD SPECIMENOrdering Facility: [facility] Address: [address] [place] [address] Performed By: #### 2 4323-8 ####[facility] LABCLIA [id number] [place] [address] ESTIMATED GLOMERULAR FILTRATION RATE 56 mL/min/1.73m??? Low >=60 [facility] Comment on above: Order Comment: Speci men Type: BLOOD SPECIMENOrdering Facility: [facility] Address: [address] [place] [address] Result Comment: Kala mated Glomerular Filtration Rate [...] actual GFR. Performed By: #### 2 4323-8 ####[facility] LABCLIA [id number] [place] [address] Glucose [Mass/Vol] 86 mg/dL Normal 74-99 [facility] Comment on above: Order Comment: Nesha parikh Type: BLOOD SPECIMENOrdering Facility: [facility] Address: [address] [place], [place] [id number] Result Comment: The [place] Diabetes Association (ADA) provides guidance for cutoff [...] Standards of Medical Care in Diabetes 2016, [place] Diabetes Association. Diabetes Care. 2016.39(Suppl 1). Performed By: #### 2 4323-8 ####[facility] LABCLIA [id number] [place] [address] Potassium [Moles/Vol] 4.4 mmol/L Normal 3.7-5.1 [facility] Comment on above: Order Comment: Nesha parikh Type: BLOOD SPECIMENOrdering Facility: [facility] Address: [address] [place] [address] Performed By: #### 2 4323-8 ####[facility] LABCLIA [id number] [place] [address] Protein [Mass/Vol] 6.9 g/dL Normal 6.3-8.0 [facility] Comment on above: Order Comment: Nesha parikh Type: BLOOD SPECIMENOrdering Facility: [facility] Address: [address] [address] Performed By: #### 2 4323-8 ####[facility] LABCLIA [id number] [place] [address] Sodium [Moles/Vol] 136 mmol/L Normal 136-144 [facility] Comment on above: Order Comment: Speci men Type: BLOOD SPECIMENOrdering Facility: [facility] Address: [facility] [address] [address] Performed By: #### 2 4323-8 ####[facility] LABCLIA [id number] [place] [address] Urea nitrogen [Mass/Vol] 18 mg/dL Normal 7-21 [facility] Comment on above: Order Comment: Speci men Type: BLOOD SPECIMENOrdering Facility: [facility] Address: [facility] [address] [address] Performed By: #### 2 4323-8 ####[facility] LABCLIA [id number] [place] [address] Albumin [Mass/Vol] 4.6 g/dL 3.9 - 4.9 g/dL [facility] ALP [Catalytic activity/Vol] 42 U/L 34 - 123 U/L [facility] ALT [Catalytic activity/Vol] 12 U/L 7 - 38 U/L [facility] Anion gap [Moles/Vol] 8 mmol/L Low 9 - 18 mmol/L [facility] AST [Catalytic activity/Vol] 24 U/L 13 - 35 U/L [facility] Bilirubin [Mass/Vol] 0.3 mg/dL 0.2 - 1 .3 mg/dL [facility] Calcium [Mass/Vol] 9.5 mg/dL 8.5 - 10. 2 mg/dL [facility] Chloride [Moles/Vol] 102 mmol/L 97 - 10 5 mmol/L [facility] CO2 [Moles/Vol] 26 mmol/L 22 - 30 mmol/L [facility] Creatinine [Mass/Vol] 0.98 mg/dL High 0.58 - 0.96 mg/dL [facility] Estimated Glomerular Filtration Rate 56 mL/min/1.73m Low >=60 mL/min/1.73m [facility] Glucose [Mass/Vol] 86 mg/dL 74 - 99 mg/dL [facility] Potassium [Moles/Vol] 4.4 mmol/L 3.7 - 5.1 mmol/L [facility] Protein [Mass/Vol] 6.9 g/dL 6.3 - 8.0 g/dL [facility] Sodium [Moles/Vol] 136 mmol/L 136 - 144 mmol/L [facility] Urea nitrogen [Mass/Vol] 18 mg/dL 7 - 21 mg/dL [facility] FERRITIN BLDon 06-14-2021 Ferritin [Mass/Vol] 14.3 ng/mL Low 14.7-205.1 [facility] Comment on above: Order Comment: Speci men Type: BLOOD SPECIMENOrdering Facility: [facility] Address: [address] [place] [address] Performed By: #### F ERR, IRON ####[facility] LABCLIA [id number] [place] [address] [place] IRON + TIBCon 06-14-2021 Iron [Mass/Vol] 16 ug/dL Low 41-186 [facility] Comment on above: Order Comment: Speci men Type: BLOOD SPECIMENOrdering Facility: [facility] Address: [address] [place] [address] Performed By: #### F ERR, IRON ####[facility] LABCLIA [id number] [place] [address] [place] Iron binding capacity [Mass/Vol] 438 ug/dL High 232-386 [facility] Comment on above: Order Comment: Speci men Type: BLOOD SPECIMENOrdering Facility: [facility] Address: [address] [place] [address] Performed By: #### F ERR, IRON ####[facility] LABCLIA [id number] [place] [address] [place] Iron/TIBC [Molar ratio] 4 % Low 15-57 [facility] Comment on above: Order Comment: Speci men Type: BLOOD SPECIMENOrdering Facility: [facility] Address: [address] [place] [address] Performed By: #### F ERR, IRON ####[facility] LABCLIA [id number] [facility] [place] [address] [place] RETIC COUNTon 06-14-2021 Reticulocytes (Bld) [#/Vol] 0.26607 10*3/uL 0.018 - 0.100 M/uL [facility] Retics #on 06-14-2021 Reticulocytes (Bld) [#/Vol] 0.69310 10*3/uL Normal 0.018-0.100 [facility] Comment on above: Order Comment: Speci men Type: BLOOD SPECIMENOrdering Facility: [facility] Address: [address] [place] [address] Performed By: #### 1 4196-0, 77155-6 ####[facility] LABCLIA [id number] [place] [address] Reticulocytes (Bld) [#/Vol]o n 06-14-2021 Reticulocytes/100 RBC (Bld) 1.3 % Normal 0.4-2.0 [facility] Comment on above: Order Comment: Speci men Type: BLOOD SPECIMENOrdering Facility: [facility] Address: [address] [place] [address] Performed By: #### 1 4196-0, 40415-9 ####[facility] LABCLIA [id number] [place] [address] Reticulocytes/100 RBC (Bld) 1.3 % 0.4 - 2.0 % [facility] Vital Signs Date Time Vital Sign Value Performing Clinician Facility 08-09-2023 15:17 Body height 140.97 cm DO [employer] Work Phone: [facility] 08-09-2023 15:170400 Body mass index (BMI) [Ratio] 22.8 kg/m2 DO [employer] Work Phone: [facility] 08-09-2023 15:170400 Body weight 45.35 kg DO Erik Ball Work Phone: [facility] 06-18-2023 13:230400 Body height 140.97 cm DO Erik Ball Work Phone: [facility] 06-18-2023 13:23-0400 Body mass index (BMI) [Ratio] 22.9 kg/m2 DO Erik Ball Work Phone: [facility] 06-18-2023 13:230400 Body weight 45.58 kg DO Erik Ball Work Phone: [facility] 06-18-2023 13:23-0400 Diastolic blood pressure 90 mm[Hg] DO Erik Ball Work Phone: [facility] 06-18-2023 13:23-0400 Heart rate 69 /min DO Erik Ball Work Phone: [facility] 06-18-2023 13:23-0400 Respiratory rate 12 /min DO Erik Ball Work Phone: [facility] 06-18-2023 13:23-0400 Systolic blood pressure 152 mm[Hg] DO Erik Ball Work Phone: [facility] 05-18-2023 10:10-0400 Body height 140.97 cm DO Erik Ball Work Phone: [facility] 05-18-2023 10:10-0400 Body mass index (BMI) [Ratio] 23 kg/m2 DO Erik Ball Work Phone: [facility] 05-18-2023 10:10-0400 Body weight 45.81 kg DO Erik Ball Work Phone: [facility] 05-18-2023 10:10-0400 Diastolic blood pressure 87 mm[Hg] DO Erik Ball Work Phone: [facility] 05-18-2023 10:10-0400 Heart rate 73 /min DO Erik Ball Work Phone: [facility] 05-18-2023 10:10-0400 Respiratory rate 12 /min DO Erik Ball Work Phone: [facility] 05-18-2023 10:10-0400 Systolic blood pressure 134 mm[Hg] DO Erik Ball Work Phone: [facility] 05-11-2023 13:50-0500 Body height 140.97 cm DO Erik Ball Work Phone: [facility] 05-11-2023 13:50-0500 Body mass index (BMI) [Ratio] 23.3 kg/m2 DO Erik Ball Work Phone: [facility] 05-11-2023 13:50-0500 Body weight 46.26 kg DO Erik Ball Work Phone: [facility] 05-11-2023 13:50-0500 Diastolic blood pressure 84 mm[Hg] DO Erik Ball Work Phone: [facility] 05-11-2023 13:50-0500 Systolic blood pressure 122 mm[Hg] DO Erik Ball Work Phone: [facility] 02-19-2023 13:30-0500 Body height 140.97 cm Erik Ball Other [facility] [employer] Other 02-19-2023 13:30-0500 Body mass index (BMI) [Ratio] 23.42 kg/m2 Erik Ball Other [employer] Other 02-19-2023 13:30-0500 Body weight 46.54 kg Erik Ball Other [employer] Other 02-19-2023 13:30-0500 Diastolic blood pressure 84 mm[Hg] Erik Ball Other [employer] Other 02-19-2023 13:30-0500 Respiratory rate 12 /min Erik Ball Other [employer] Other 02-19-2023 13:30-0500 Systolic blood pressure 130 mm[Hg] Erik Ball Other [employer] Other 01-31-2023 14:15-0500 Body height 140.97 cm Erik Ball Other [employer] Other 01-31-2023 14:15-0500 Body mass index (BMI) [Ratio] 23.14 kg/m2 Erik Ball Other [employer] Other 01-31-2023 14:15-0500 Body weight 46 kg Erik Ball Other [employer] Other 01-31-2023 14:15-0500 Diastolic blood pressure 92 mm[Hg] Erik Ball Other [employer] Other 01-31-2023 14:15-0500 Respiratory rate 12 /min Erik Ball Other [employer] Other 01-31-2023 14:15-0500 Systolic blood pressure 150 mm[Hg] Erik Ball Other [employer] Other 10-30-2022 14:30-0400 Body height 140.97 cm Erik Ball Other [employer] Other 10-30-2022 14:30-0400 Body mass index (BMI) [Ratio] 23.64 kg/m2 Erik Ball Other [employer] Other 10-30-2022 14:30-0400 Body weight 46.99 kg Erik Ball Other [employer] Other 10-30-2022 14:30-0400 Diastolic blood pressure 77 mm[Hg] Erik Ball Other [employer] Other 10-30-2022 14:30-0400 Respiratory rate 12 /min Erik Ball Other [employer] Other 10-30-2022 14:30-0400 Systolic blood pressure 122 mm[Hg] Erik Ball Other [employer] Other 08-30-2022 11:45-0400 Body height 140.97 cm Erik Ball Other [employer] Other 08-30-2022 11:45-0400 Body mass index (BMI) [Ratio] 22.91 kg/m2 Erik Ball Other [employer] Other 08-30-2022 11:45-0400 Body weight 45.54 kg Erik Ball Other [employer] Other 08-30-2022 11:45-0400 Diastolic blood pressure 88 mm[Hg] Erik Ball Other [employer] Other 08-30-2022 11:45-0400 Respiratory rate 12 /min Erik Ball Other [employer] Other 08-30-2022 11:45-0400 Systolic blood pressure 135 mm[Hg] Erik Ball Other [employer] Other 05-12-2022 13:30-0500 Body height 140.97 cm Erik Ball Other [employer] Other 05-12-2022 13:30-0500 Body mass index (BMI) [Ratio] 23.96 kg/m2 Erik Ball Other [employer] Other 05-12-2022 13:30-0500 Body weight 47.63 kg Erik Ball Other [employer] Other 05-12-2022 13:30-0500 Diastolic blood pressure 73 mm[Hg] Erik Ball Other [employer] Other 05-12-2022 13:30-0500 Systolic blood pressure 132 mm[Hg] Erik Ball Other [employer] Other 11-16-2021 10:58-0400 Body height 151.1 cm Fiorella Lisa PA-C Work Phone: [facility] 11-16-2021 10:58-0400 Body temperature 97.81 [degF] Fiorella Lisa PA-C Work Phone: [facility] 11-16-2021 10:58-0400 Body weight 48.99 kg Fiorella Lisa PA-C Work Phone: [facility] 11-16-2021 10:58-0400 Diastolic blood pressure 86 mm[Hg] Fiorella Lisa PA-C Work Phone: [facility] 11-16-2021 10:58-0400 Heart rate 74 /min Fiorella Lisa PA-C Work Phone: [facility] 11-16-2021 10:58-0400 Respiratory rate 16 /min Fiorella Lisa PA-C Work Phone: [facility] 11-16-2021 10:58-0400 SaO2% (BldA) [Mass fraction] 99 % Fiorella Lisa PA-C Work Phone: [facility] 11-16-2021 10:58-0400 Systolic blood pressure 143 mm[Hg] Fiorella Lisa PA-C Work Phone: [facility] 09-26-2021 13:25-0400 Body height 151.1 cm Binh Hernandez MD Work Phone: [facility] 09-26-2021 13:25-0400 Body temperature 97.9 [degF] Binh Hernandez MD Work Phone: [facility] 09-26-2021 13:25-0400 Body weight 49.44 kg Binh Hernandez MD Work Phone: [facility] 09-26-2021 13:25-0400 Diastolic blood pressure 65 mm[Hg] Binh Hernandez MD Work Phone: [facility] 09-26-2021 13:25-0400 Heart rate 64 /min Binh Hernandez MD Work Phone: [facility] 09-26-2021 13:25-0400 Respiratory rate 16 /min Binh Hernandez MD Work Phone: [facility] 09-26-2021 13:25-0400 SaO2% (BldA) [Mass fraction] 99 % Binh Hernandez MD Work Phone: [facility] 09-26-2021 13:25-0400 Systolic blood pressure 134 mm[Hg] Binh Hernandez MD Work Phone: [facility] 08-22-2021 11:00-0400 Body temperature 96.69 [degF] Chair Albion Work Phone: [facility] 08-22-2021 11:00-0400 Diastolic blood pressure 58 mm[Hg] Chair Albion Work Phone: [facility] 08-22-2021 11:00-0400 Heart rate 70 /min Chair Samuel Work Phone: [facility] 08-22-2021 11:00-0400 Respiratory rate 18 /min Chair Samuel Work Phone: [facility] 08-22-2021 11:00-0400 SaO2% (BldA) [Mass fraction] 98 % Chair Samuel Work Phone: [facility] 08-22-2021 11:00-0400 Systolic blood pressure 116 mm[Hg] Chair Albion Work Phone: [facility] 08-08-2021 13:29-0400 Diastolic blood pressure 75 mm[Hg] Chair Albion Work Phone: [facility] 08-08-2021 13:29-0400 Heart rate 69 /min Chair Albion Work Phone: [facility] 08-08-2021 13:29-0400 Respiratory rate 18 /min Chair Samuel Work Phone: [facility] 08-08-2021 13:29-0400 SaO2% (BldA) [Mass fraction] 98 % Chair Albion Work Phone: [facility] 08-08-2021 13:29-0400 Systolic blood pressure 120 mm[Hg] Chair Samuel Work Phone: [facility] 08-08-2021 11:00-0400 Body temperature 97.5 [degF] Chair Samuel Work Phone: [facility] 07-26-2021 12:59-0400 Body height 151.1 cm Binh Hernandez MD Work Phone: [facility] 07-26-2021 12:59-0400 Body temperature 97.3 [degF] Binh Hernandez MD Work Phone: [facility] 07-26-2021 12:59-0400 Body weight 49.35 kg Binh Hernandez MD Work Phone: [facility] 07-26-2021 12:59-0400 Diastolic blood pressure 82 mm[Hg] Binh Hernandez MD Work Phone: [facility] 07-26-2021 12:59-0400 Heart rate 64 /min Binh Hernandez MD Work Phone: [facility] 07-26-2021 12:59-0400 Respiratory rate 16 /min Binh Hernandez MD Work Phone: [facility] 07-26-2021 12:59-0400 SaO2% (BldA) [Mass fraction] 99 % Binh Hernandez MD Work Phone: [facility] 07-26-2021 12:59-0400 Systolic blood pressure 113 mm[Hg] Binh Hernandez MD Work Phone: [facility] 06-14-2021 11:22-0400 Body height 151.1 cm Binh Hernandez MD Work Phone: [facility] 06-14-2021 11:22-0400 Body temperature 97 [degF] Binh Hernandez MD Work Phone: [facility] 06-14-2021 11:22-0400 Body weight 48.08 kg Binh Hernandez MD Work Phone: [facility] 06-14-2021 11:22-0400 Diastolic blood pressure 69 mm[Hg] Binh Hernandez MD Work Phone: [facility] 06-14-2021 11:22-0400 Heart rate 71 /min Binh Hernandez MD Work Phone: [facility] 06-14-2021 11:22-0400 Respiratory rate 16 /min Binh Hernandez MD Work Phone: [facility] 06-14-2021 11:22-0400 SaO2% (BldA) [Mass fraction] 90 % Binh Hernandez MD Work Phone: [facility] 06-14-2021 11:22-0400 Systolic blood pressure 126 mm[Hg] Binh Hernandez MD Work Phone: [facility] Encounters Encounter Date Encounter Type Care Provider Facility Start: 08-09-2023 End: 08-09-2023 ambulatory DO Erik Zimmerman Work Phone: [facility] Work Phone: Start: 08-09-2023 End: 08-09-2023 Patient encounter procedure DO Erik Zimmerman Work Phone: [facility] [facility] Work Phone: Start: 06-18-2023 End: 06-18-2023 ambulatory DO Erik Ball Work Phone: [facility] Work Phone: Start: 06-18-2023 End: 06-18-2023 Patient encounter procedure DO Erik Ball Work Phone: [facility] Work Phone: Start: 05-18-2023 End: 05-18-2023 ambulatory DO Erik Ball Work Phone: [facility] Work Phone: Start: 05-18-2023 End: 05-18-2023 Patient encounter procedure DO Erik Ball Work Phone: [facility] Work Phone: Start: 05-11-2023 End: 05-11-2023 ambulatory Erik Ball Facility:[facility] Start: 05-11-2023 End: 05-11-2023 Patient encounter procedure DO Erik Ball Work Phone: [facility] Work Phone: Start: 04-18-2023 Non-patient / Non-visit DO Florian Zimmerman Work Phone: [facility] Work Phone: Start: 03-28-2023 End: 03-28-2023 ambulatory Erik Ball Other [employer] Other Start: 03-28-2023 Telephone encounter Erik Ball FP [facility] Start: 02-21-2023 End: 02-21-2023 ambulatory Erik Ball Other [employer] Other Start: 02-21-2023 Telephone encounter Erik Ball FP [facility] Start: 02-19-2023 End: 02-19-2023 ambulatory Erik Ball Other [employer] Other Start: 02-19-2023 Patient encounter procedure Erik Zimmerman [facility] Start: 02-02-2023 End: 02-02-2023 ambulatory Erik Zimmerman Other [employer] Other Start: 02-02-2023 Telephone encounter Erik Zimmerman FP [facility] Start: 01-31-2023 End: 01-31-2023 ambulatory Erik Zimmerman Other [employer] Other Start: 01-31-2023 Office outpatient vi sit 15 minutes Erik Ball [facility] Start: 01-31-2023 Telephone encounter Erik Zimmerman FP [facility] Start: 10-31-2022 End: 10-31-2022 ambulatory Erik Zimmerman Other [employer] Other Start: 10-31-2022 Telephone encounter Erik Zimmerman FP [facility] Start: 10-30-2022 End: 10-30-2022 ambulatory Erik Zimmerman Other [employer] Other Start: 10-30-2022 Office outpatient vi sit 15 minutes Erik Ball [facility] Start: 09-13-2022 End: 09-13-2022 ambulatory Erik Zimmerman Other [employer] Other Start: 09-13-2022 Telephone encounter Erik Zimmerman [facility] Start: 08-30-2022 End: 08-30-2022 ambulatory Erik Zimmerman Other [employer] Other Start: 08-30-2022 Office outpatient vi sit 25 minutes Erik Ball [facility] Start: 08-14-2022 End: 08-15-2022 ambulatory Trudy Bridges MD Facility: [facility] Start: 08-08-[address] ERIK ZIMMERMAN Facili ty:[facility] Start: 07-21-2022 End: 07-22-[address] ERIK ZIMMERMAN Facility:[facility] Start: 06-28-2022 End: 06-28-2022 ambulatory Erik Zimmerman Other [employer] Other Start: 06-28-2022 Telephone encounter Erik Zimmerman [facility] Start: 05-17-2022 End: 05-17-2022 ambulatory Erik Zimmerman Other [employer] Other Start: 05-17-2022 Telephone encounter Erik Zimmerman [facility] Start: 05-16-2022 End: 05-17-[address] ERIK ZIMMERMAN Facility:[facility] Start: 05-12-2022 End: 05-12-2022 ambulatory Erik Zimmerman Other [employer] Other Start: 05-12-2022 Office outpatient vi sit 15 minutes Erik Zimmerman [facility] Start: 03-31-2022 End: 03-31-2022 ambulatory Erik Zimmerman Other [employer] Other Start: 03-31-2022 Telephone encounter Erik Zimmerman [facility] Start: 03-20-2022 End: 03-20-[address] [...] encounter procedure Binh Hernandez MD Work Phone: [facility] Start: 09-20-2021 End: 09-21-[address] ERIK ZIMMERMAN Facility:[facility] Start: 09-02-2021 End: 09-02-[address] Elian ESPANA Facility:[facility] Start: 08-22-2021 End: 08-22-2021 ambulatory Chair 17 [address] Work Phone: Hematology/Oncology Comment on above: 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) Start: 08-08-2021 End: 08-08-2021 ambulatory Chair 18 [place] Work Phone: Hematology/Oncology Comment on above: Iron [...] Binh Hernandez MD Work Phone: [facility] Start: 07-18-2021 Telephone encounter Charisma Henderson RN Hematology/Oncology Comment on above: Results; Appointment Start: 07-12-2021 End: 07-13-[address] ERIK ZIMMERMAN Facility:[facility] Start: 06-29-2021 End: 06-29-2021 ambulatory ERIK ZIMMERMAN Facility:[facility] Start: 06-24-2021 Telephone encounter Charisma Henderson RN Hematology/Oncology Comment on above: Appointment Start: 06-16-2021 Telephone encounter Dary sandoval [facility] Work Phone: [facility] Comment on above: Medication Follow-up (Monoferric not covered - switched plan to Venfoer 300mg x3 weekly doses) Start: 06-14-2021 Telephone encounter Binh Hernandez MD Work Phone: [facility] Comment on above: Future Appointment Start: 06-14-2021 End: 06-14-2021 ambulatory Binh Hernandez MD Work Phone: Hematology/Oncology Comment on above: 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) Start: 06-14-2021 End: 06-14-2021 Patient encounter procedure Binh Hernandez MD Work Phone: [place] Plan of Treatment Date Care Activity Detail Author Start: 11-16-2024 DIABETES SCREEN [facility]EN [facility] Start: 06-14-2024 DIABETES SCREEN DIABETES SCREEN [facility] Start: 05-11-2023 [address]KG [address] [facility] Start: 11-16-2021 End: 01-16-2022 Ferritin [Mass/volume] in Serum or Plasma [facility] Work Phone: Comment on above: Expected: 11/16/2021 , Expires: 01/16/2022 Start: 11-16-2021 End: 01-16-2022 Iron and Iron binding capacity panel - Serum or Plasma [facility] Work Phone: Comment on above: Expected: 11/16/2021 , Expires: 01/16/2022 Start: 11-07-2021 End: 01-07-2022 CBC W Auto Differential panel - Blood CBC + DIFF Lab Routine Iron deficiency anemia due to chronic blood loss Expected: 11/07/2021 (Approximate), Expires: 01/07/2022 [facility] Work Phone: Comment on above: Expected: 11/07/2021 (Approximate), Expires: 01/07/2022 Start: 11-07-2021 End: 01-07-2022 Ferritin [Mass/volume] in Serum or Plasma FERRITIN BLD Lab Routine Iron deficiency anemia due to chronic blood loss Expected: 11/07/2021 (Approximate), Expires: 01/07/2022 [facility] Work Phone: Comment on above: Expected: 11/07/2021 (Approximate), Expires: 01/07/2022 Start: 11-07-2021 End: 01-07-2022 Iron and Iron binding capacity panel - Serum or Plasma IRON + TIBC Lab Routine Iron deficiency anemia due to chronic blood loss Expected: 11/07/2021 (Approximate), Expires: 01/07/2022 [facility] Work Phone: Comment on above: Expected: 11/07/2021 (Approximate), Expires: 01/07/2022 Start: 11-03-2021 Influenza vaccination INFLUENZA (#1) [facility] Start: 09-26-2021 End: 11-26-2021 Ferritin [Mass/volume] in Serum or Plasma [facility] Work Phone: Comment on above: Expected: 09/26/2021 , Expires: 11/26/2021 Start: 09-26-2021 End: 11-26-2021 Iron and Iron binding capacity panel - Serum or Plasma [facility] Work Phone: Comment on above: Expected: 09/26/2021 , Expires: 11/26/2021 Start: 07-26-2021 End: 09-25-2021 CBC W Auto Differential panel - Blood CBC + DIFF Lab Routine Iron deficiency anemia due to chronic blood loss Expected: 07/26/2021 (Approximate), Expires: 09/25/2021 [facility] Work Phone: Comment on above: Expected: 07/26/2021 (Approximate), Expires: 09/25/2021 Start: 07-26-2021 End: 09-25-2021 FERRITIN BLD FERRITIN BLD Lab Routine Iron deficiency anemia due to chronic blood loss Expected: 07/26/2021 (Approximate), Expires: 09/25/2021 [facility] Work Phone: Comment on above: Expected: 07/26/2021 (Approximate), Expires: 09/25/2021 Start: 07-26-2021 End: 09-25-2021 IRON + TIBC IRON + TIBC Lab Routine Iron deficiency anemia due to chronic blood loss Expected: 07/26/2021 (Approximate), Expires: 09/25/2021 [facility] Work Phone: Comment on above: Expected: 07/26/2021 (Approximate), Expires: 09/25/2021 Start: 06-13-2021 End: 08-13-2021 FERRITIN BLD FERRITIN BLD Lab Routine Iron deficiency anemia due to chronic blood loss Expected: 06/13/2021, Expires: 08/13/2021 [facility] Work Phone: Comment on above: Expected: 06/13/2021 , Expires: 08/13/2021 Start: 06-13-2021 End: 08-13-2021 IRON + TIBC IRON + TIBC Lab Routine Iron deficiency anemia due to chronic blood loss Expected: 06/13/2021, Expires: 08/13/2021 [facility] Work Phone: Comment on above: Expected: 06/13/2021 , Expires: 08/13/2021 Start: 03-05-2021 ADVANCE DIRECTIVE DISCUSSION ADVANCE DIRECTIVE DISCUSSION [facility] Start: [address]ONE D[address] [facility] Start: 1998 PNEUMOCOCCAL: 65+ (1 - PCV) PNEUMOCOCCAL: 65+ (1 - PCV) [facility] Start: 1998 PNEUMOVAX AGE 65 AND OVER WITH 5YR LOOKBACK (#1) PNEUMOVAX AGE 65 AND OVER WITH 5YR LOOKBACK (#1) [facility] Start: 11-19-1983 SHINGRIX VACCINE (1 of 2) SHINGRIX VACCINE (1 of 2) [facility] Start: 1952 Urine microalbumin profile DTAP,TDAP,TD (1 - Tdap) [facility] Bacteria identified in Urine by Culture [facility] FERRITIN BLD FERRITIN BLD Lab Routine Iron deficiency anemia due to chronic blood loss 06/14/2021 11:00 AM EDT [facility] Work Phone: IRON + TIBC IRON + TIBC Lab Routine Iron deficiency anemia due to chronic blood loss 06/14/2021 11:00 AM EDT [facility] Work Phone: US.doppler Carotid arteries - bilateral [facility] Immunizations Immunization Date Immunization Notes Care Provider Jon ring 08-09-2023 tetanus toxoid, reduced diphtheria toxoid, and acellular pertussis vaccine, adsorbed DO Erik Zimmerman Work Phone: [facility] 12-21-2022 COVID-19 (PFIZER) 12Y and older DO Erik Zimmerman Work Phone: [facility] 11-25-2022 Influenza vaccine, quadrivalent, adjuvanted DO Erik Zimmerman Work Phone: [facility] 11-25-2022 influenza virus vaccine, unspecified formulation DO Erik Zimmerman Work Phone: [facility] 11-25-2022 influenza, high dose seasonal, preservative-free Erik Zimmerman Other [employer] Other 04-10-2022 zoster vaccine recombinant DO Erik Zimmerman Work Phone: [facility] 01-11-2022 COVID-19 mRNA Bivale nt Booster (Pfizer) DO Erik Zimmerman Work Phone: [facility] 12-13-2021 Seasonal trivalent influenza vaccine, adjuvanted, preservative free DO Erik Zimmerman Work Phone: [facility] 08-31-2021 Prevnar 20 Erik Zimmerman Other [facility] 06-27-2021 COVID-19 vaccine, ag e 12+ yr ([employer] - [facility]) Binh Hernandez MD Work Phone: [facility] 12-04-2020 influenza virus vaccine, split virus (incl. purified surface antigen) Erik Zimmerman Other [employer] Other 12-04-2020 influenza virus vaccine, unspecified formulation DO Erik Zimmerman Work Phone: [facility] 12-04-2020 Seasonal trivalent influenza vaccine, adjuvanted, preservative free Binh Hernandez MD Work Phone: [facility] 11-29-2020 COVID-19 vaccine, ag e 12+ yr (PFIZER-BIONTECH - PURPLE TOP) Binh Hernandez MD Work Phone: [facility] 04-24-2020 COVID-19 vaccine, ag e 12+ yr (PFIZER-BIONTECH - PURPLE TOP) Binh Hernandez MD Work Phone: [facility] 04-03-2020 COVID-19 vaccine, ag e 12+ yr (PFIZER-BIONTECH - PURPLE TOP) Binh Hernandez MD Work Phone: [facility] 11-24-2019 influenza virus vaccine, split virus (incl. purified surface antigen) Erik Zimmerman Other [employer] [facility] [employer] Other 11-24-2019 influenza virus vaccine, unspecified formulation DO Eirk Zimmerman Work Phone: [facility] 11-24-2019 Seasonal trivalent influenza vaccine, adjuvanted, preservative free Binh Hernandez MD Work Phone: [facility] 01-14-2019 influenza virus vaccine, split virus (incl. purified surface antigen) Erik Zimmerman Other [employer] Other 01-14-2019 influenza virus vaccine, unspecified formulation DO Erik Zimmerman Work Phone: [facility] 12-25-2017 Seasonal trivalent influenza vaccine, adjuvanted, preservative free Binh Hernandez MD Work Phone: [facility] 12-12-2017 influenza virus vaccine, split virus (incl. purified surface antigen) Erik Zimmerman Other [employer] Other 12-12-2017 influenza virus vaccine, unspecified formulation DO Erik Zimmerman Work Phone: [facility] 12-22-2016 influenza virus vaccine, split virus (incl. purified surface antigen) Erik Zimmerman Other [facility] [employer] Other 12-22-2016 influenza virus vaccine, unspecified formulation DO Erik Zimmerman Work Phone: [facility] 12-22-2016 influenza, high dose seasonal, preservative-free Binh Hernandez MD Work Phone: [facility] 12-13-2015 influenza virus vaccine, split virus (incl. purified surface antigen) Erik Zimmerman Other [facility] [employer] Other 12-13-2015 influenza virus vaccine, unspecified formulation DO Erik Zimmerman Work Phone: [facility] 12-13-2015 influenza, high dose seasonal, preservative-free Binh Hernandez MD Work Phone: [facility] 01-04-2015 pneumococcal conjuga te vaccine, 13 valent Erik Zimmerman Other [facility] 12-03-2014 influenza virus vaccine, split virus (incl. purified surface antigen) Erik Zimmerman Other [facility] [employer] Other 12-03-2014 influenza virus vaccine, unspecified formulation DO Erik Zimmerman Work Phone: [facility] 12-10-2013 tetanus and diphther ia toxoids, adsorbed, preservative free, for adult use (5 Lf of tetanus toxoid and 2 Lf of diphtheria toxoid) Erik Zimmerman Other [facility] 12-26-2012 influenza, seasonal, injectable Binh Hernandez MD Work Phone: [facility] 12-17-2012 tetanus and diphther ia toxoids, adsorbed, preservative free, for adult use (5 Lf of tetanus toxoid and 2 Lf of diphtheria toxoid) Erik Obdulio Other [facility] Payers Date Payer Category Payer Self-pay 2023 Unknown [id number] 2019 Private Health Insurance AET[employer]RA [employer]YES MEDICARE SUPPLEMENT [id number] 2019-Present [phone] [address] [address] [place] [address] Indemnity [id number] 2019 Private Health Insurance [id number] 1998 Medicare MEDICARE MEDICAR E A AND B [id number] 1998-Present [phone] [address] [address] [place] [address] Medicare [id number] 1998 Medicare [id number] 1959 Medicare [id number] 1959 Medicare [id number] 1933 Unknown [id number] [id number]. 2.593 1933 Unknown [id number] .[id number]. 2.593 1933 Unknown [id number] .[id number]. 2.59 1933 Unknown [id number] .[id number]. 2.593 1933 Unknown [id number] 2.16.840.1.517609.3.579. 2.593 1933 Unknown [id number] 2.16.840.1.122099.3.579. 2.593 1933 Unknown [id number] 2.16.840.1.385975.3.579. 2.593 1933 Unknown [id number] 2.16.840.1.902583.3.579. 2.593 1933 Unknown [id number] 2.16.840.1.429719.3.579. 2.593 1933 Unknown [id number] 2.16.840.1.733772.3.579. 2.593 1933 Unknown [id number] 2.16.840.1.194907.3.579. 2.593 1933 Unknown [id number] 2.16.840.1.704712.3.579. 2.196 1933 Unknown [id number] [id number]. 2.196 Private Health Insurance [employer] [id number] Unknown [id number] Unknown [id number] 2..[id number]. 2.531 Social History Date Type Detail Facility Start: 11-25-2013 End: 08-09-2023 Tobacco smoking status NHIS Never smoked tobacco [facility] Start: 06-14-2021 End: 11-16-2021 Alcohol intake Current drinker of alcohol (finding) [facility] Start: 11-25-2013 History SDOH Alcohol Comment wine daily [facility] Start: 1935 Sex Assigned At Not on file C [facility] Start: 06-04-2021 End: 11-16-2021 Exposure to SARS-CoV-2 (event) Not sure [facility] Start: 11-16-2021 Tobacco use and exposure Smokeless tobacco non-user [facility] Sex Assigned At Sex Assigned At [facility] [employer] Other Start: 1933 Sex Assigned At Female F [facility] Clinical Notes 06-14-2021 to 03-28-2023 Note Date & Type Note Facility 03-28-2023 Evaluation note Encounter Date Diagnosis Assessment Notes Mar, Vitamin D deficiency (ICD-10 - E55.9) Mar, Age-related osteoporosis with current pathological fracture with routine healing, subsequent encounter (ICD-10 - M80.00XD) [employer] Other 12-18-2023 Evaluation note* Encounter Date Diagnosis [...] in bowel habits No melena or hematochezia [employer] Other 11-29-2023 Evaluation note* Encounter Date Diagnosis [...] goal < 135/85 _update in couple days [employer] Other 11-29-2023 Evaluation note* Encounter Date Diagnosis Assessment Notes Treatment Notes Treatment Clinical Notes Jan, Chest wall pain (ICD-10 - R07.89) [employer] Other 08-28-2023 Evaluation note* Encounter Date Diagnosis [...] and may have experienced an adverse reaction [employer] Other 06-28-2023 Evaluation note* Encounter Date Diagnosis [...] anxiety contributes. 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 Checking B12, Fe, and Thyroid studies Aug, Anemia in other chronic diseases classified elsewhere (ICD-10 - D63.8) Hx of anemia of unknown etiology. Fe transiently low and replaced w/ IV Fe infusion. Recent Hgb have been normal. No obvious s/s bleeding [employer] Other 04-26-2023 Evaluation note* Encounter Date Diagnosis Assessment Notes Treatment Notes Treatment Clinical Notes Jun, Kyphoscoliosis deformity of spine (ICD-10 - M41.9) Jun, Lumbar spondylosis (ICD-10 - M47.816) [employer] Other 03-10-2023 Evaluation note* Encounter Date Diagnosis [...] May, Other chronic pain (ICD-10 - G89.29) [employer] Other 09-15-2022 Miscellaneous Notes* Telephone Encounter - [...] labs to Dr. Zimmerman. [facility] M[facility] Notes* Telephone Encounter - Jewel [...] office. Fiorella Gonzalez PA-C documented in this encounterSt[facility]22 NoteHNO ID: [id number] Author: Fiorella Gonzalez PA-C Service: ? Author Type: Physician Call Worker Person Type: Progress Notes Filed: 11/16/2021 11:43 AM [...] her again. Fiorella Gonzalez PA-C [facility] History of Present illness Narrative* Fiorella [...] PA-C CC: Erik Zimmerman documented in this encounterSt. [facility]07-[facility]-2022 NoteHNO ID: [id number] Author: Binh Hernandez MD Service: ? Author [...] ? Patient mentions being iron deficient in 2018 [...] which included preparing to see the patient, [id number] patient care, completing clinical documentation, obtaining and/or reviewing separately obtained history, performing a medically appropriate examination, counseling and educating the patient/family/caregiver, ordering medications, tests, or procedures, independently interpreting results (not separately reported) and communicating results to the patient/family/caregiver. CC: [facility] History of Present illness Narrative* Binh [...] which included preparing to see the patient, [id number] patient care, completing clinical documentation, obtaining and/or reviewing separately obtained history, performing a medically appropriate examination, counseling and educating the pat ient/family/caregiver, ordering medications, tests, or procedures, independently interpreting results (not separately reported) and communicating results to the patient/family/caregiver. CC: Erik Zimmerman documented in this encounterSt. [facility]06-[facility]-2022 NoteHNO ID: [id number] Author: Angeles Moss RN Service: ? Author Type: Registered Nurse Type: Progress Notes Filed: 08/22/2021 1:19 PM Note Text: .[facility] History of Present illness Narrative* Angeles Moss RN - 08/22/2021 11:15 AM EDT . documented in this encounterSt. [facility]05-[facility]-2022 NoteHNO ID: [id number] Author: Binh Hernandez MD Service: ? Author [...] which included preparing to see the patient, [id number] patient care, completing clinical documentation, obtaining and/or reviewing separately obtained history, performing a medically appropriate examination, counseling and educating the patient/family/caregiver, ordering medications, tests, or procedures, independently interpreting results (not separately reported) and communicating results to the patient/family/caregiver. CC: [facility] History of Present illness Narrative* Binh [...] follow-up. She is here with a friend, Overall doing well. No new symptoms. She [...] which included preparing to see the patient, [id number] patient care, completing clinical documentation, obtaining and/or reviewing separately obtained history, performing a medically appropriate examination, counseling and educating the pat ient/family/caregiver, ordering medications, tests, or procedures, independently interpreting results (not separately reported) and communicating results to the patient/family/caregiver. CC: Erik Zimmerman documented in this encounterSt. [facility]05-[facility]-2022 Miscellaneous Notes* Telephone Encounter - Sade [...] you. Charisma Henderson RN documented in this encounterSt. [facility]04-22-2022 Miscellaneous Notes* Telephone Encounter - Charisma [...] appt. She will need iron labs rechecked. ThanksVERA * Telephone Encounter - Charisma Henderson RN [...] advise. Charisma Henderson, RN documented in this encounterSt. [facility]04-14-2022 Miscellaneous Notes* Telephone Encounter - Jovita Brandin Pss - 06/16/2021 2:02 PM EDT Herrera Ramos spoke with [facility]. She states they have received patient records/referral and have patient scheduled to see Dr Espana on 09/01 @ 1:45. Jovita Ghotra Pss * Telephone Encounter - Devi Lawrence [facility] - 06/14/2021 1:14 PM EDT Records [...] your mailbox. Thank you documented in this encounterSt. [facility] Hospital04-12-2022 NoteHNO ID: [id number] Author: Binh Hernandez MD Service: ? Author [...] which included preparing to see the patient, [id number] patient care, completing clinical documentation, obtaining and/or reviewing separately obtained history, performing a medically appropriate examination, counseling and educating the patient/family/caregiver, ordering medications, tests, or procedures, independently interpreting results (not separately reported) and communicating results to the patient/family/caregiver. CC: [facility] History of Present illness Narrative* Binh [...] which included preparing to see the patient, [id number] patient care, completing clinical documentation, obtaining and/or reviewing separately obtained history, performing a medically appropriate examination, counseling and educating the pat ient/family/caregiver, ordering medications, tests, or procedures, independently interpreting results (not separately reported) and communicating results to the patient/family/caregiver. CC: Erik Zimmerman [facility] Diagnosis Iron deficiency anemia due to chronic blood loss- Primary Iron deficiency anemia secondary to blood loss (chronic) documented in this encounter [facility]* Diagnosis Iron deficiency anemia due to chronic blood loss- Primary Iron deficiency anemia secondary to blood loss (chronic) documented in this encounter [facility] note* Diagnosis Iron deficiency anemia due to chronic blood loss- Primary Iron deficiency anemia secondary to blood loss (chronic) documented in this encounter [facility] note* Diagnosis Iron deficiency anemia due to chronic blood loss- Primary Iron deficiency anemia secondary to blood loss (chronic) documented in this encounter [facility] note* Diagnosis Iron deficiency anemia due to chronic blood loss- Primary Iron deficiency anemia secondary to blood loss (chronic) documented in this encounter [facility] noteNo [email or web address] [employer] Other Evaluation note* Diagnosis Onset Date Resolution Status Essential hypertension acute CAREY (generalized anxiety disorder) acute Palpitation acute Cerumen impaction noneactive [facility] Work Phone: Evaluation note* Diagnosis Onset Date Resolution Status Essential hypertension acute CAREY (generalized anxiety disorder) acute Palpitation acute Cerumen impaction noneactive Occlusion of left carotid artery acute Palpitation acute Cerumen impaction noneactive Decreased hearing of both ears noneactive Essential hypertension acute CAREY (generalized anxiety disorder) acute Occlusion of left carotid artery acute Palpitation acute Fatigue noneactive Anemia noneactive [facility] Work Phone: Evaluation note* Diagnosis Onset [...] bite of left lower leg lizabeth milan [facility] Work Phone: Hisfzol general Narrative - Reported* Type Description Date Surgical History appendectomy [employer] Other History general Narrative - Reported* Type [...] headache Surgical History appendectomy Surgical History COLONOSCOPY Surgical History EGD Surgical History CAROTID BYPASS Surgical History LEFT BUNIONECTOMY 2018 Hospitalization History SEE SURGICAL HX [employer] Other Reason for referral (narrative)* Reason Referral for pain ma nagement Diagnosis 1 Kyphoscoliosis defor mity of spine (M41.9) Diagnosis 2 Lumbar spondylosis ( M47.816) Referral Organization [facility] Referring Provider First Name Erik Referring Provider Last Name Obdulio Referring Provider Specialty Internal Me dicine Referred Organization [facility] Referred Provider Mirian Maldonado Referred Address [address] [place], [place],[address] Referred Provider Specialty Pain Medicin e Referral Priority Routine General Notes 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 She has daily pain, moderate in intensity, which interferes with activities of daily living. Clinical Notes XR lumbar spine and B/L hips to be included w/ referral. [employer] Other Reason for Referral Specialty Diagnoses / Procedures Referred By Juanpablo damian Referred To Contact Gastroenterology Diagnoses Iron deficiency anemia due to chronic blood loss Procedures CONSULT TO GASTROENTEROLOGY OFFICE/[facility] 60-74 MINUTES Binh Hernandez MD [address] [place] [address] [place] [address] Referral ID Status Reason Start Date Expiration Date Visits Requested Visits Authorized [id number] Authorized PCP Requested Referral 06/14/2021 06/14/2022 1 [...] or prosecute any alcohol or drug abuse patient.[facility] the event this information is protected by the Federal Confidentiality of Alcohol and Drug Abuse Patient Records regulations: The Federal rules restrict any use of the information to criminally investigate or prosecute any alcohol or drug abuse patient.[facility] the event this information is protected by the Federal Confidentiality of Alcohol and Drug Abuse Patient Records regulations: The Federal rules restrict any use of the information to criminally investigate or prosecute any alcohol or drug abuse patient.[facility] the event this information is protected by the Federal Confidentiality of Alcohol and Drug Abuse Patient Records regulations: The Federal rules restrict any use of the information to criminally investigate or prosecute any alcohol or drug abuse patient.[facility] the event this information is protected by the Federal Confidentiality of Alcohol and Drug Abuse Patient Records regulations: The Federal rules restrict any use of the information to criminally investigate or prosecute any alcohol or drug abuse patient.[facility] the event this information is protected by the Federal Confidentiality of Alcohol and Drug Abuse Patient Records regulations: The Federal rules restrict any use of the information to criminally investigate or prosecute any alcohol or drug abuse patient.[facility] the event this information is protected by the Federal Confidentiality of Alcohol and Drug Abuse Patient Records regulations: The Federal rules restrict any use of the information to criminally investigate or prosecute any alcohol or drug abuse patient.[facility] the event this information is protected by the Federal Confidentiality of Alcohol and Drug Abuse Patient Records regulations: The Federal rules restrict any use of the information to criminally investigate or prosecute any alcohol or drug abuse patient.[facility] the event this information is protected by the Federal Confidentiality of Alcohol and Drug Abuse Patient Records regulations: The Federal rules restrict any use of the information to criminally investigate or prosecute any alcohol or drug abuse patient.[facility] the event this information is protected by the Federal Confidentiality of Alcohol and Drug Abuse Patient Records regulations: The Federal rules restrict any use of the information to criminally investigate or prosecute any alcohol or drug abuse patient.[facility] the event this information is protected by the Federal Confidentiality of Alcohol and Drug Abuse Patient Records regulations: The Federal rules restrict any use of the information to criminally investigate or prosecute any alcohol or drug abuse patient.[facility] the event this information is protected by the Federal Confidentiality of Alcohol and Drug Abuse Patient Records regulations: The Federal rules restrict any use of the information to criminally investigate or prosecute any alcohol or drug abuse patient.[facility] Reason for Visit (unrecogniz ed section [...] INJECTION PER 1 MG Binh Hernandez MD [address] [place] [address] [place] [address] Fernando Treat Samuel [address] [place] [address] Referral ID Status Reason Start Date Expiration Date V isits Requested Visits Authorized [id number] Authorized 06/15/2021 03/04/2022 99 99 Reason Comments [...] End: August 09, 2023 Devi Mills APRN [employer] Attending Provider Act corinne Start: August 09, 2023 End: August 09, 2023 Vinegar Maker Relationship Specialty Start Date End Date Erik Zimmerman DO PCP - General Internal Medicine 11/17/13 Vinegar Maker Relationship Specialty Start Date End Date Erik Zimmerman DO PCP - General Internal Medicine 11/17/13 Vinegar Maker Relationship Specialty Start Date End Date Erik Zimmerman, DO PCP - General Internal Medicine 11/17/13 Vinegar Maker Relationship Specialty Start Date End Date Erik Zimmerman, DO PCP - General Internal Medicine 11/17/13 Vinegar Maker Relationship Specialty Start Date End Date Obdulio Erik Monica, DO PCP - General Internal Medicine 11/17/13 Vinegar Maker Relationship Specialty Start Date End Date Obdulio Erik Monica, DO PCP - General Internal Medicine 11/17/13 Vinegar Maker Relationship Specialty Start Date End Date Obdulio Erik Monica, DO PCP - General Internal Medicine 11/17/13 Vinegar Maker Relationship Specialty Start Date End Date Obdulio Erik Monica, DO PCP - General Internal Medicine 11/17/13 Vinegar Maker Relationship Specialty Start Date End Date Obdulio Erik Monica, DO PCP - General Internal Medicine 11/17/13 [...] End: August 09, 2023 Devi Mills APRN [employer] Attending Provider Act corinne Start: August 09, 2023 End: August 09, 2023 INFORMATION SOURCE (unrecogn ized section and content) DATE CREATED AUTHOR 11/30/2021 [facility] DATE CREATED AUTHOR AUTHOR'S ORGANIZ ATION 07/12/2022 [facility] DATE CREATED AUTHOR AUTHOR'S ORGANIZ ATION 10/24/2022 [facility] DATE CREATED AUTHOR AUTHOR'S ORGANIZ ATION 05/12/2023 [facility] Goals (unrecognized section and content) Goals may [...] BE BASED ON THE PRIMARY CLINICAL RECORDS. [employer] provides no warranty or guarantee of the accuracy or completeness of information in this document.
== END 2023-09-03 14:23 | disposition home or self-care (01) ==
LOC: LAB 14:25
PROVIDERS: PCP Internal Medicine; Visit Provider Internal Medicine
DX: D64.9 Anemia, unspecified (principal)
CPT/HCPCS: 36415; 82728

== ENCOUNTER 2023-09-19 12:52 | Outpatient (OUT) | payer MEDICARE, SELFPAY ==
[2023-09-19 13:38] LABS: Anion Gap 11.5; BUN Creatinine Ratio 18.4; Calcium 8.2 mg/dL (8.5-10.1); Carbon Dioxide 26.6 mmol/L (21.0-32.0); Chloride 103 mmol/L (98-107); Estimated GFR (African America >60 (>=60); Estimated GFR (Non-African Ame 50 (>=60); Glucose 95 mg/dL (74-106); Potassium 4.1 mmol/L (3.5-5.1); Sodium 137 mmol/L (136-145)
== END 2023-09-19 12:53 | disposition home or self-care (01) ==
LOC: LAB 12:54
PROVIDERS: PCP Internal Medicine; Visit Provider Internal Medicine
DX: M81.0 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 current pathological fracture (principal)
CPT/HCPCS: 36415; 80048; 82306

== ENCOUNTER 2023-10-24 15:47 | Outpatient (OUT) | payer MEDICARE, SELFPAY ==
--- OUTSIDE RECORDS SUMMARY | 2023-10-24 16:08 | XMS_ITS | CCD ---
Author Organization [facility] CliniSynj Care Team Providers Care Basket Weaver Name Role Phone Erik Zimmerman DO Primary [...] Unavailable Obdulio, DO [place] Primary Care Provider [phone] Obdulio, DO [place] Attending Provider Allergies Allergy Classification Reported Allergen(s) Allergy Type Date of Onset Reaction(s) Facility (13 sources) predniSONE; Translations: [PREDNISONE] Drug Allergy 4 Other: See Comments [facility] (13 sources) Eye Drops Relief; Translations: [EYE DROPS RELIEF] Drug Allergy 4 Unknown [facility] (2 sources) predniSONE Drug Allergy 4 [facility] Repository Medications Current Medications Medication Drug [...] mout h three times daily as needed. aspirin 81 mg delayed release oral tablet (20 sources) Platelet Aggregation Inhibitor, Nonsteroidal Anti-inflammatory Drug Start: 05-11-2023 take 81 mg by mouth once daily [...] Active calcium carbonate 1500 mg oral tablet (5 sources) Start: 05-11-2023 take 600 mg by [...] (20 sources) Histamine-2 Receptor Antagonist Start: 05-11-2023 End: 09-10-2023 take 40 mg by mouth once daily at bedtime Famotidine Active 40 MG PO Daily at bedtime 90 90 September 10, 2023 2:54pm Start: 09-26-2021 End: 10-26-2021 take 1 tablet [...] propionate 0.05 mg/actuat metered dose nasal spray (19 sources) Corticosteroid Start: 05-11-2023 Fluticasone Propionate Active 2 SPRAY INTRANASAL Daily May 11, 2023 1:00am Start: 03-07-2022 take 2 spray(s) nasal route on ce daily Start: 03-07-2022 take 2 spray(s) nasal route on ce daily Multivitamin With Iron (4 sources) Start: 05-11-2023 take 1 tablet by mouth once daily Multivitamin With Iron Active 1 TAB PO Daily May 11, 2023 1:00am Multivitamin/Iron (15 sources) Multivitamin/Iro n Active naproxen sodium 220 mg oral tablet (13 sources) Nonsteroidal Anti-inflammatory Drug Start: 05-11-2023 take [...] (20 sources) Proton Pump Inhibitor Start: 05-11-2023 End: 09-10-2023 take 40 mg by mouth once daily Omeprazole Active 40 MG PO Daily 90 90 September 10, 2023 2:52pm Start: 10-19-2021 take 1 capsule by mo [facility] once daily Omeprazole 40 MG 1 capsule 30 minutes before morning meal Orally Once a day for 30 days Oct, Active Start: 05-07-2019 End: 05-11-2023 Omeprazole Discontinued Payam mahad 2019 1:00am May 11, 2023 2:50pm PriLOSEC [...] above: Take by mouth as nee ded. amoxicillin 875 mg / clavulanate 125 mg oral tablet (2 sources) Penicillin-class Antibacterial Start: 08-09-2023 End: 09-10-2023 take 1 tablet by mouth twice daily Amoxicillin-Pot Clavulanate Discontinued 1 TAB PO Twice daily 10 August 09, 2023 12:00am September 10, 2023 2:51pm brimonidine tartrate 2 mg/ml ophthalmic solution (4 sources) alpha-Adrenergic Agonist Start: 05-07-2019 End: 05-11-2023 [...] DAY ferrous gluconate 324 mg oral tablet (4 sources) Start: 05-07-2019 End: 05-11-2023 Ferrous Gluconate Discontinued TABLET May 07, 2019 1:00am May 11, 2023 2:50pm folic acid 1 mg oral tablet (4 sources) Start: 05-07-2019 End: 05-11-2023 Folic Acid Discontinued TABLET May 07, 2019 1:00am May 11, 2023 2:50pm latanoprost 0.05 mg/ml ophthalmic solution (16 sources) Prostaglandin Analog Start: 05-12-2021 take 1 [...] EVERY EVENING lisinopril 2.5 mg oral tablet (18 sources) Angiotensin Converting Enzyme Inhibitor Start: 05-07-2019 [...] succinate 25 mg extended release oral tablet (4 sources) beta-Adrenergic Monie Start: 05-07-2019 End: 05-11-2023 [...] classified elsewhere Chronic Deficiency and other anemia (19 sources) Iron deficiency anemia; Translations: [Iron deficiency anemia, unspecified] 05-11-2023 Episodic Deficiency and other anemia (14 sources) Iron deficiency anemia secondary to inadequate dietary iron intake; Translations: [Other iron deficiency anemias] Episodic Deficiency and other anemia (7 sources) Other iron deficiency anemias; Translations: [OTHER IRON DEFICIENCY ANEMIAS] Onset: 2 Episodic Deficiency and other anemia (4 sources) Anemia, unspecified; Translations: [Anemia, unspecified] 06-18-2023 Episodic E Codes: Fall (1 source) Unspecified fall, initial encounter Episodic Esophageal disorders (17 sources) Gastroesophageal reflux disease; Translations: [Gastro-esophageal reflux disease without esophagitis] Chronic Essential hypertension (20 sources) Hypertensive disorder; Translations: [Essential (primary) hypertension] Onset: 5 05-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 Headache; including migraine (14 sources) Frontal headache ; Translations: [Frontal headache] Episodic Malaise and fatigue (4 sources) Other fatigue; Translations: [Other malaise and fatigue] Episodic Nonspecific chest pain (14 sources) Precordial pain; Translations: [Precordial pain] Onset: 6 06-10-2015 Episodic Nutritional deficiencies (20 sources) Vitamin D deficiency; Translations: [Vitamin D deficiency, unspecified] Onset: 2 Chronic Occlusion or stenosis of precerebral arteries (20 sources) Left carotid artery occlusion; Translations: [Occlusion and stenosis of left carotid artery] Chronic Open wounds of extremities (4 sources) Dog bite of lower leg; Translations: [Open bite, left lower leg, initial encounter] 08-09-2023 Episodic Osteoarthritis (1 source) Bilateral primary osteoarthritis of hip; Translations: [BILATERAL PRIM OSTEOARTHRITIS HIP] Onset: 3 Chronic Osteoporosis (5 sources) 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 current pathological fracture; Translations: [AGE-REL OSTEOPOR W/O CURR PATH FX] Onset: 3 Chronic Other acquired deformities (18 sources) Kyphoscoliosis deformity of spine; Translations: [Scoliosis, [...] chronic pain Chronic Other nervous system disorders (15 sources) Carpal tunnel syndrome; Translations: [Carpal tunnel [...] Onset: 2 Episodic Other upper respiratory disease (19 sources) Vasomotor rhinitis; 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] 05-11-2023 [...] 09-08-2021 Episodic Other aftercare (1 source) Other usp (current) drug therapy; Translations: [OTH LONGTERM CURRENT DRUG THERAPY] Onset: 09-21-2021 Episodic Other [...] Test Name Value Interpretation Reference Range Facility Laboratory - Chemistry and C hemistry - challengeon 09-03-2023 Ferritin [Mass/Vol] 47.0 ng/mL 8.0-252.0 [facility] Automated urine specific gra vity by refractometryon 06-18-2023 Specific gravity Refractometry automated (U) [Rel density] 1.015 1.005-1.025 [facility] Basophils Auto (Bld) [#/Vol] on 06-18-2023 Basophils (Bld) [#/Vol] 0.1 10 3/uL 0.0-0.1 [facility] Basophils/100 WBC Auto (Bld) on 06-18-2023 Basophils/100 WBC (Bld) 1.1 % 0.2-2.0 [facility] Bilirubin Auto test strip (U ) [Mass/Vol]on 06-18-2023 Bilirubin (U) [Mass/Vol] Negative NEGATIVE [facility] Color Auto (U)on 06-18-2023 Color (U) LT. YELLOW YELLOW [facility] Eosinophils/100 WBC Auto (Bl d)on 06-18-2023 Eosinophils/100 WBC (Bld) 4.4 % 0.9-7.0 [facility] Erythrocyte distribution wid th Auto (RBC) [Ratio]on 06-18-2023 Erythrocyte distribution width (RBC) [Ratio] 13.2 % 11.0-15.0 [facility] Glucose [Mass/volume] in Uri ne by Test stripon 06-18-2023 Glucose Test strip (U) [Mass/Vol] Negative NEGATIVE [facility] Hematocrit Auto (Bld) [Volum e fraction]on 06-18-2023 Hematocrit (Bld) [Volume fraction] 43.8 % 36.0-48.0 [facility] Hemoglobin [Mass/volume] in Bloodon 06-18-2023 Hemoglobin (Bld) [Mass/Vol] 13.4 g/dL 12.0-16.0 [facility] Iron binding capacity [Mass/ volume] in Serum or Plasmaon 06-18-2023 Iron binding capacity [Mass/Vol] 405.0 ug/dL 250.0-450.0 [facility] Iron saturation [Mass Fracti on] in Serum or Plasmaon 06-18-2023 Iron saturation [Mass fraction] 9.4 % [facility] Ketones Auto test strip (U) [Mass/Vol]on 06-18-2023 Ketones (U) [Mass/Vol] Negative NEGATIVE [facility] Laboratory - Chemistry and C hemistry - challengeon 06-18-2023 Iron [Mass/Vol] 38.0 ug/dL Low 50.0-170.0 [facility] TSH Qn 0.901 m[IU]/L 0.358-3.740 [facility] Cobalamin (Vitamin B12) [Mass/Vol] 334.0 pg/mL 193.0-986.0 [facility] Ferritin [Mass/Vol] 49.0 ng/mL 8.0-252.0 [facility] Laboratory - Hematology and Cell countson 06-18-2023 Immature granulocytes/100 WBC (Bld) 0.4 % 0.0-0.5 [facility] Leukocytes [#/volume] correc adarsh for nucleated erythrocytes in Blood by Automated counon 06-18-2023 WBC corrected for nucl RBC Auto (Bld) [#/Vol] 5.7 10 3/uL 4.0-11.0 [facility] Lymphocytes Auto (Bld) [#/Vo l]on 06-18-2023 Lymphocytes (Bld) [#/Vol] 1.5 10 3/uL 1.2-3.8 [facility] Lymphocytes/100 WBC Auto (Bl d)on 06-18-2023 Lymphocytes/100 WBC (Bld) 26.2 % 20.5-60.0 [facility] MCH Auto (RBC) [Entitic mass ]on 06-18-2023 MCH (RBC) [Entitic mass] 28.3 pg 26.7-34.0 [facility] MCHC Auto (RBC) [Mass/Vol]on 06-18-2023 MCHC (RBC) [Mass/Vol] 30.6 g/dL 29.9-35.2 [facility] MCV Auto (RBC) [Entitic vol] on 06-18-2023 MCV (RBC) [Entitic vol] 92.6 fL 81.0-99.0 [facility] Monocytes Auto (Bld) [#/Vol] on 06-18-2023 Monocytes (Bld) [#/Vol] 0.5 10 3/uL 0.3-0.8 [facility] Monocytes/100 WBC Auto (Bld) on 06-18-2023 Monocytes/100 WBC (Bld) 9.4 % 1.7-12.0 [facility] Neutrophils Auto (Bld) [#/Vo l]on 06-18-2023 Neutrophils (Bld) [#/Vol] 3.3 10 3/uL 1.4-6.5 [facility] Neutrophils/100 WBC Auto (Bl d)on 06-18-2023 Neutrophils/100 WBC (Bld) 58.5 % 43.0-75.0 [facility] No Panel Informationon 06-17 Eosinophils # (Auto) 0.3 10 3/uL 0.0-0.7 [facility] Immature Granulocyte # (Auto) 0.02 10 3/uL 0.00-0.03 [facility] Folate 20.20 ng/mL 8.60-58.90 [facility] Platelet mean volume Auto (B ld) [Entitic vol]on 06-18-2023 Platelet mean volume (Bld) [Entitic vol] 10.3 fL 9.5-13.5 [facility] Platelets Auto (Bld) [#/Vol] on 06-18-2023 Platelets (Bld) [#/Vol] 189 10 3/uL 150-450 [facility] Protein Auto test strip (U) [Mass/Vol]on 06-18-2023 Protein (U) [Mass/Vol] 30 mg/dL Abnormal NEG/TRACE [facility] RBC Auto (Bld) [#/Vol]on RBC (Bld) [#/Vol] 4.73 10 6/uL 4.20-5.40 [facility] Specific gravity Auto test s trip (U) [Rel density]on 06-18-2023 Specific gravity (U) [Rel density] CLEAR CLEAR [facility] Urine hemoglobin detection b y automated test stripon 06-18-2023 Hemoglobin Auto test strip Ql (U) TRACE-I NEGATIVE [facility] Urine nitrite detection by a utomated test stripon 06-18-2023 Nitrite Auto test strip Ql (U) Negative NEGATIVE [facility] Urobilinogen Auto test strip (U) [Mass/Vol]on 06-18-2023 Urobilinogen Qn (U) 0.2 {Dank'U}/dL 0.2-1.0 [facility] pH Auto test strip (U)on pH (U) 7.5 [pH] 5.0-9.0 [facility] Estimated glomerular filtrat ion rate (GFR) non- Americanon 04-18-2023 GFR/1.73 sq M.predicted among non-blacks MDRD (S/P/Bld) [Vol rate/Area] 57 mL/min/{1.73_m2} >=60 [facility] Laboratory - Chemistry and C hemistry - challengeon 04-18-2023 Calcium [Mass/Vol] 9.0 mg/dL 8.5-10.1 [facility] Chloride [Moles/Vol] 105 mmol/L 98-107 [facility] CO2 [Moles/Vol] 28.0 mmol/L 21.0-32.0 [facility] Creatinine [Mass/Vol] 0.93 mg/dL 0.55-1.02 [facility] GFR/1.73 sq M.predicted MDRD (S/P/Bld) [Vol rate/Area] mL/min/{1.73_m2} >=60 [facility] Glucose [Mass/Vol] 87 mg/dL 74-106 [facility] Potassium [Moles/Vol] 4.0 mmol/L 3.5-5.1 [facility] Sodium [Moles/Vol] 141 mmol/L 136-145 [facility] Urea nitrogen [Mass/Vol] 19.0 mg/dL 7.0-18.0 [facility] Urea nitrogen/Creatinine [Mass ratio] 20.4 mg/mg [facility] No Panel Informationon 04-18 25-Hydroxy Vitamin D Total 38.2 ng/mL [facility] Comment on above: <20 ng/mL Vit D defi cient20-<30 ng/mL Vit D bmvnrgtbosbz38-756 ng/mL Vit D sufficient>100 ng/mL Potential Toxicity Serum or plasma anion gap de terminationon 04-18-2023 Anion gap [Moles/Vol] 12.0 mmol/L [facility] Basic Metabolic Panelon 02-02 Anion gap [Moles/Vol] 10.9 mmol/L [employer] Other Calcium [Mass/Vol] 8.5870526 mg/dL Normal 8.5-10 .1 mg/dL [facility] [employer] Other Chloride [Moles/Vol] 102 mmol/L Normal 98-107 mmol/L [facility] [employer] Other CO2 [Moles/Vol] 28.42593479 mmol/L Normal 21.0-3 2.0 mmol/L [facility] [employer] Other Creatinine [Mass/Vol] 1.06161722 mg/dL High 0.55-1.02 mg/dL [facility] [employer] Other Glucose [Mass/Vol] 101 mg/dL Normal 74-106 mg/dL [facility] [employer] Other Potassium [Moles/Vol] 3.29651850 mmol/L Normal 3.5-5.1 mmol/L [facility] [employer] Other Sodium [Moles/Vol] 138 mmol/L Normal 136-145 mmol/L [facility] [employer] Other Urea nitrogen [Mass/Vol] 16.4986504 mg/dL Normal 7.0-18.0 mg/dL [facility] [employer] Other Urea nitrogen/Creatinine [Mass ratio] 14.7 mg/mg [facility] [employer] Other Basic Metabolic Panel see note [facility] [employer] Other Basic Metabolic Panel 47 Low >=60 [facility] [employer] Other Basic Metabolic Panel 57 Low >=60 [facility] [employer] Other FERRITINon 02-20-2023 Ferritin [Mass/Vol] 31.3336351 ng/mL Normal 8.0- 252.0 ng/mL [facility] [employer] Other XR HIPS VALERIY 5V W PELVISon [...] DE DIOS Date: 2022-05-16 11:52 Normal [facility] CBC AUTO DIFFon 03-06-2022 BASO # 0.0 103/ul Normal 0.0-0.1 [facility] Comment on above: Performed By: #### C BC ####[facility] [address] [place] [id number]. Devorah James Basophils/100 WBC (Bld) 0.7 % Normal 0.2-2.0 [facility] Comment on above: Performed By: #### C BC ####[facility] [address] [place], [place] [address]Nq. Devorah James EO # 0.2 103/ul Normal 0.0-0.7 [facility] Comment on above: Performed By: #### C BC ####[facility] [address] [place], [place] [address]Na. Devorah James Eosinophils/100 WBC (Bld) 3.7 % Normal 0.9-7.0 [facility] Comment on above: Performed By: #### C BC ####[facility] [address] [place] [address]Dr. Devorah James Erythrocyte distribution width (RBC) [Ratio] 12.8 % Normal 11.0-15.0 [facility] Comment on above: Performed By: #### C BC ####[facility] [address] [place], [place] [address]Dr. Devorah James Hematocrit (Bld) [Volume fraction] 41.5 % Normal 36.0-48.0 [facility] Comment on above: Performed By: #### C BC ####[facility] [address] [place], [place] [address]Dr. Devorah James Hemoglobin (Bld) [Mass/Vol] 13.3 g/dL Normal 12.0-16.0 [facility] Comment on above: Performed By: #### C BC ####[facility] [address] [place], [place] [address]Dr. Devorah James IG # 0.01 10e3/ul Normal 0.00-0.03 [facility] Comment on above: Performed By: #### C BC ####[facility] [address] [place], [place] [address]Dr. Devorah James IG % 0.2 % Normal 0.0-0.5 [facility] Comment on above: Performed By: #### C BC ####[facility] [address] [place], [place] [address]Dr. Devorah James LYMPH # 1.1 103/ul Critically low 1.2-3.8 [facility] Comment on above: Performed By: #### C BC ####[facility] [address] [place], [place] [address]Dr. Devorah James Lymphocytes/100 WBC (Bld) 18.2 % Critically low 20.5-60.0 [facility] Comment on above: Performed By: #### C BC ####[facility] [address] [place], [place] [address]Dr. Devorah Jacob MANUAL DIFF REQ NO Normal [facility] Comment on above: Performed By: #### C BC ####[facility] [address] [place] [id number]. Devorah Jacob MCH (RBC) [Entitic mass] 29.1 pg Normal 26.7-34.0 [facility] Comment on above: Performed By: #### C BC ####[facility] [address] [place] [address]Dr. Devorah James MCHC (RBC) [Mass/Vol] 32.0 g/dL Normal 29.9-35.2 [facility] Comment on above: Performed By: #### C BC ####[facility] [address] [place], [place] [address]Dr. Devorah James MCV (RBC) [Entitic vol] 90.8 fL Normal 81.0-99.0 [facility] Comment on above: Performed By: #### C BC ####[facility] [address] [place], [place] [address]Dr. Devorah James MONO # 0.6 103/ul Normal 0.3-0.8 [facility] Comment on above: Performed By: #### C BC ####[facility] [address] [place], [place] [address]Dr. Devorah James Monocytes/100 WBC (Bld) 10.0 % Normal 1.7-12.0 [facility] Comment on above: Performed By: #### C BC ####[facility] [address] [place], [place] [address]DrDarvin James NEUT # 4.0 103/ul Normal 1.4-6.5 [facility] Comment on above: Performed By: #### C BC ####[facility] [address] [place], [place] [address]DrDarvin James Neutrophils/100 WBC (Bld) 67.2 % Normal 43.0-75.0 [facility] Comment on above: Performed By: #### C BC ####[facility] [address] [place], [place] [address]DrDarvin James Platelet mean volume (Bld) [Entitic vol] 10.1 fL Normal 9.5-13.5 [facility] Comment on above: Performed By: #### C BC ####[facility] [address] [place] [id number] James PLT 183 103/ul Normal 150-450 [facility] Comment on above: Performed By: #### C BC ####[facility] [address] [place] [id number] James RBC 4.57 106/ul Normal 4.20-5.40 [facility] Comment on above: Performed By: #### C BC ####[facility] [address] [place] [id number] James WBC 6.0 103/ul Normal 4.0-11.0 [facility] Comment on above: Performed By: #### C BC ####[facility] [address] [place] [address]Dr. Devorah James FERRITINon 03-06-2022 Ferritin [Mass/Vol] 44.0 ng/mL Normal 8.0-252.0 [facility] Comment on above: Performed By: #### F ERR, VITAD #### [facility] [address] [place] [address] [address] Devorah James PROF CHEM 8 (BAS METB)on Anion gap [Moles/Vol] 11.8 mmol/L Normal [facility] Comment on above: Performed By: #### B MP ####[facility] [address] [place] [id number]. Devorah James Calcium [Mass/Vol] 8.8 mg/dL Normal 8.5-10.1 [facility] Comment on above: Performed By: #### B MP ####[facility] [address] [place] [id number]. Devorah James Chloride [Moles/Vol] 102 mmol/L Normal 98-107 [facility] Comment on above: Performed By: #### B MP ####[facility] [address] [place] [address]Dr. Devorah James CO2 [Moles/Vol] 27.7 mmol/L Normal 21.0-32.0 [facility] Comment on above: Performed By: #### B MP ####[facility] [address] [place] [id number]. Devorah James Creatinine [Mass/Vol] 0.84 mg/dL Normal 0.55-1.02 [facility] Comment on above: Performed By: #### B MP ####[facility] [address] [place] [id number]. Devorah Jacob EGFR-AF CROATIAN >60 Normal >=60 [facility] Comment on above: Performed By: #### B MP ####[facility] [address] [place], [place] [address]Dr. Devorah Jacob EGFR-NON AF CROATIAN >60 Normal >=60 [facility] Comment on above: Performed By: #### B MP ####[facility] [address] [place], [place] [address]Dr. Devorah Jacob Glucose [Mass/Vol] 112 mg/dL Critically high 74-106 [facility] Comment on above: Performed By: #### B MP ####[facility] [address] [place], [place] [address]Dr. Devorah Jacob Potassium [Moles/Vol] 4.5 mmol/L Normal 3.5-5.1 [facility] Comment on above: Performed By: #### B MP ####[facility] [address] [place] [id number]. Elsycindy James Sodium [Moles/Vol] 137 mmol/L Normal 136-145 [facility] Comment on above: Performed By: #### B MP ####[facility] [address] [place] [id number]. Devorah Jacob Urea nitrogen [Mass/Vol] 15.0 mg/dL Normal 7.0-18.0 [facility] Comment on above: Performed By: #### B MP ####[facility] [address] [place] [id number]. Devorah James Urea nitrogen/Creatinine [Mass ratio] 17.9 mg/mg Normal [facility] Comment on above: Performed By: #### B MP ####[facility] [address] [place], [place] [address]Dr. Devorah James VITAMIN D 25 OHon 03-06-2022 VIT D 25-OH 47.3 ng/mL Normal [facility] Comment on above: Performed By: #### F ERR, VITAD #### [facility] [address] [place], [place] [address] Dr. Devorah James VIT D RANGES SEE BELOW Normal [facility] Comment on above: Result Comment: <20 ng/mL Vit D deficient 20 - <30 ng/mL Vit D insufficient 30 - 100 ng/mL Vit D sufficient >100 ng/mL Potential Toxicity Performed By: #### F ERR, VITAD #### [facility] [address] [place], [place] [address] Dr. Devorah James CNPNon 11-17-2021 CNPN Telephone (HEMTSA) NINA ESCALONA ([id number]) 1935 F Date Time Provider Department 11/17/21 [...] Status:Closed by JEWEL RICHARDSON on 11/17/21 Normal [facility] CBC W Auto Differential pane l (Bld)on 11-16-2021 Basophils (Bld) [#/Vol] 0.03 10*3/uL Normal <0.11 [facility] Comment on above: Order Comment: Speci men Type: BLOOD SPECIMENOrdering Facility: [facility] Address: [address] [place] [address] Performed By: #### 5 7021-8 ####[facility] LABCLIA [id number] [place] [address] Basophils/100 WBC (Bld) 0.6 % Normal [facility] Comment on above: Order Comment: Speci men Type: BLOOD SPECIMENOrdering Facility: [facility] Address: [address] [place] [address] Performed By: #### 5 7021-8 ####[facility] LABCLIA [id number] [place] [address] Differential cell count method Nom (Bld) Auto Normal [facility] Comment on above: Order Comment: Speci men Type: BLOOD SPECIMENOrdering Facility: [facility] Address: [address] [place] [address] Performed By: #### 5 7021-8 ####[facility] LABCLIA [id number] [place] [address] Eosinophils (Bld) [#/Vol] 0.10 10*3/uL Normal <0.46 [facility] Comment on above: Order Comment: Speci men Type: BLOOD SPECIMENOrdering Facility: [facility] Address: [address] [place] [address] Performed By: #### 5 7021-8 ####[facility] LABCLIA [id number] [place] [address] Eosinophils/100 WBC (Bld) 2.1 % Normal [facility] Comment on above: Order Comment: Speci men Type: BLOOD SPECIMENOrdering Facility: [facility] Address: [address] [place] [address] Performed By: #### 5 7021-8 ####[facility] LABCLIA [id number] [place] [address] Erythrocyte distribution width (RBC) [Ratio] 17.6 % High 11.5-15.0 [facility] Comment on above: Order Comment: Speci men Type: BLOOD SPECIMENOrdering Facility: [facility] Address: [address] [place] [address] Performed By: #### 5 7021-8 ####[facility] LABCLIA [id number] [place] [address] Hematocrit (Bld) [Volume fraction] 46.2 % High 36.0-46.0 [facility] Comment on above: Order Comment: Speci men Type: BLOOD SPECIMENOrdering Facility: [facility] Address: [address] [place] [address] Performed By: #### 5 7021-8 ####[facility] LABCLIA [id number] [place] [address] Hemoglobin (Bld) [Mass/Vol] 14.5 g/dL Normal 11.5-15.5 [facility] Comment on above: Order Comment: Speci men Type: BLOOD SPECIMENOrdering Facility: [facility] Address: [address] [place] [address] Performed By: #### 5 7021-8 ####[facility] LABIA [id number] [place] [address] IMMATURE GRAN % 0.2 % Normal [facility] Comment on above: Order Comment: Speci men Type: BLOOD SPECIMENOrdering Facility: [facility] Address: [address] [place] [address] Performed By: #### 5 7021-8 ####[facility] LABCLIA [id number] [place] [address] IMMATURE GRAN ABS <0.03 Normal <0.10 [facility] Comment on above: Order Comment: Speci men Type: BLOOD SPECIMENOrdering Facility: [facility] Address: [address] [place] [address] Performed By: #### 5 7021-8 ####[facility] LABCLIA [id number] [place] [address] Lymphocytes (Bld) [#/Vol] 1.01 10*3/uL Normal 1.00-4.00 [facility] Comment on above: Order Comment: Speci men Type: BLOOD SPECIMENOrdering Facility: [facility] Address: [address] [place] [address] Performed By: #### 5 7021-8 ####[facility] LABCLIA [id number] [place] [address] Lymphocytes/100 WBC (Bld) 21.7 % Normal [facility] Comment on above: Order Comment: Speci men Type: BLOOD SPECIMENOrdering Facility: [facility] Address: [address] [place] [address] Performed By: #### 5 7021-8 ####[facility] LABCLIA [id number] [place] [address] MCH (RBC) [Entitic mass] 27.4 pg Normal 26.0-34.0 [facility] Comment on above: Order Comment: Speci men Type: BLOOD SPECIMENOrdering Facility: [facility] Address: [address] [place] [address] Performed By: #### 5 7021-8 ####[facility] LABCLIA [id number] [place] [address] MCHC (RBC) [Mass/Vol] 31.4 g/dL Normal 30.5-36.0 [facility] Comment on above: Order Comment: Speci men Type: BLOOD SPECIMENOrdering Facility: [facility] Address: [address] [place] [address] Performed By: #### 5 7021-8 ####[facility] LABCLIA [id number] [place] [address] MCV (RBC) [Entitic vol] 87.2 fL Normal 80.0-100.0 [facility] Comment on above: Order Comment: Speci men Type: BLOOD SPECIMENOrdering Facility: [facility] Address: [address] [place] [address] Performed By: #### 5 7021-8 ####[facility] LABCLIA [id number] [place] [address] Monocytes (Bld) [#/Vol] 0.43 10*3/uL Normal <0.87 [facility] Comment on above: Order Comment: Speci men Type: BLOOD SPECIMENOrdering Facility: [facility] Address: [address] [place] [address] Performed By: #### 5 7021-8 ####[facility] LABCLIA [id number] [place] [address] Monocytes/100 WBC (Bld) 9.2 % Normal [facility] Comment on above: Order Comment: Speci men Type: BLOOD SPECIMENOrdering Facility: [facility] Address: [address] [place] [address] Performed By: #### 5 7021-8 ####[facility] LABCLIA [id number] [place] [address] Neutrophils (Bld) [#/Vol] 3.08 10*3/uL Normal 1.45-7.50 [facility] Comment on above: Order Comment: Speci men Type: BLOOD SPECIMENOrdering Facility: [facility] Address: [address] [place] [address] Performed By: #### 5 7021-8 ####[facility] LABCLIA [id number] [place] [address] Neutrophils/100 WBC (Bld) 66.2 % Normal [facility] Comment on above: Order Comment: Speci men Type: BLOOD SPECIMENOrdering Facility: [facility] Address: [address] [place] [address] Performed By: #### 5 7021-8 ####[facility] LABIA [id number] [place] [address] Nucleated RBC (Bld) [#/Vol] 10*3/uL Normal <0.01 [facility] Comment on above: Order Comment: Speci men Type: BLOOD SPECIMENOrdering Facility: [facility] Address: [address] [place], [place] [address] Performed By: #### 5 7021-8 ####[facility] LABCLIA [id number] [place] [address] Nucleated RBC/100 WBC (Bld) [Ratio] 0.0 /100 WBC Normal [facility] Comment on above: Order Comment: Speci men Type: BLOOD SPECIMENOrdering Facility: [facility] Address: [address] [place], [place] [address] Performed By: #### 5 7021-8 ####[facility] LABCLIA [id number] [place] [address] Platelet mean volume (Bld) [Entitic vol] 9.5 fL Normal 9.0-12.7 [facility] Comment on above: Order Comment: Speci men Type: BLOOD SPECIMENOrdering Facility: [facility] Address: [address] [place] [address] Performed By: #### 5 7021-8 ####[facility] LABIA [id number] [place] [address] Platelets (Bld) [#/Vol] 190 10*3/uL Normal 150-400 [facility] Comment on above: Order Comment: Speci men Type: BLOOD SPECIMENOrdering Facility: [facility] Address: [address] [place], [place] [address] Performed By: #### 5 7021-8 ####[facility] LABCLIA [id number] [place] [address] RBC (Bld) [#/Vol] 5.30 10*6/uL High 3.90-5.20 [facility] Comment on above: Order Comment: Speci men Type: BLOOD SPECIMENOrdering Facility: [facility] Address: [address] [place] [address] Performed By: #### 5 7021-8 ####[facility] LABCLIA [id number] [place] [address] WBC (Bld) [#/Vol] 4.66 10*3/uL Normal 3.70-11.00 [facility] Comment on above: Order Comment: Speci men Type: BLOOD SPECIMENOrdering Facility: [facility] Address: [address] [place] [address] Performed By: #### 5 7021-8 ####[facility] LABCLIA [id number] [place] [address] Abs Immature Gran <0.10 k/uL [facility] Basophils (Bld) [#/Vol] 0.03 10*3/uL <0.11 k/uL [facility] Basophils/100 WBC (Bld) 0.6 % [facility] Differential cell count method Nom (Bld) Auto [facility] Eosinophils (Bld) [#/Vol] 0.10 10*3/uL <0.46 k/uL [facility] Eosinophils/100 WBC (Bld) 2.1 % [facility] Erythrocyte distribution width (RBC) [Ratio] 17.6 % High 11.5 - 15.0 % [facility] Hematocrit (Bld) [Volume fraction] 46.2 % High 36.0 - 46.0 % [facility] ic Hemoglobin (Bld) [Mass/Vol] 14.5 g/dL 11.5 - 15.5 g/dL [facility] Immature Gran % 0.2 % [facility] Lymphocytes (Bld) [#/Vol] 1.01 10*3/uL 1.00 - 4.00 k/uL [facility] Lymphocytes/100 WBC (Bld) 21.7 % [facility] MCH (RBC) [Entitic mass] 27.4 pg 26.0 - 34.0 pg [facility] MCHC (RBC) [Mass/Vol] 31.4 g/dL 30.5 - 36.0 g/dL [facility] MCV (RBC) [Entitic vol] 87.2 fL 80.0 - 100.0 fL [facility] Monocytes (Bld) [#/Vol] 0.43 10*3/uL <0.87 k/uL [facility] Monocytes/100 WBC (Bld) 9.2 % [facility] Neutrophils (Bld) [#/Vol] 3.08 10*3/uL 1.45 - 7.50 k/uL [facility] Neutrophils/100 WBC (Bld) 66.2 % [facility] Nucleated RBC (Bld) [#/Vol] <0.01 k/uL [facility] Nucleated RBC/100 WBC (Bld) [Ratio] 0.0 /100 WBC [facility] ic Platelet mean volume (Bld) [Entitic vol] 9.5 fL 9.0 - 12.7 fL [facility] Platelets (Bld) [#/Vol] 190 10*3/uL 150 - 400 k/uL [facility] RBC (Bld) [#/Vol] 5.30 10*6/uL High 3.90 - 5.2 0 m/uL [facility] WBC (Bld) [#/Vol] 4.66 10*3/uL 3.70 - 11. 00 k/uL [facility] CNOVSPon 11-16-2021 CNOVSP Visit (SP) Office (HEMASA) NINA ESCALONA ([id number]) 1935 F Date Time Provider Department 11/16/21 [...] CC: Erik Zimmerman Referring Provider: BINH HERNANDEZ [[id number]] Allergies As of Date: 11/16/2021 Noted Allergy Reaction EYE DROPS RELIEF 11/25/2013 16 - Unknown Comments: Glaucoma eye drops PREDNISONE 11/25/2013 14 - Other: See Comments Comments: Palpitations, sob Date Reviewed: 11/16/2021 Reviewed by: Fiorella Gonzalez PA-C - Fully Assessed Reason for Visit: Anemia [6] Primary Visit Diagnosis:Iron deficiency anemia due to chronic blood loss [D50.0] Order(s):COMP METABOLIC PANEL [SQCMP] Order #: [id number] FUTURE IRON + TIBC [SQIRON] Order #: [id number] FUTURE CBC + DIFF [SQCBCDIF] Order #: [id number] FUTURE FERRITIN BLD [SQFERR] Order #: [id number] FUTURE Disposition: Return today (on 11/16/2021), or if symptoms worsen or fail to improve. Follow-up and Disposition History for Encounter Date Provider Department Center 11/16/2021 [id number], [facility] Prescriptions as of 11/16/2021 - aspirin [...] as neede (more content not included)... Normal [facility] CNPNon 11-16-2021 CNPN Telephone (HEMASA) NINA ESCALONA ([id number]) 1935 F Date Time Provider Department 11/16/21 [...] Status:Closed by MANFRED KELLY on 11/16/21 Normal [facility] Comprehensive metabolic 2000 panelon 11-16-2021 Albumin [Mass/Vol] 4.4 g/dL Normal 3.9-4.9 [facility] Comment on above: Order Comment: Speci men Type: BLOOD SPECIMENOrdering Facility: [facility] Address: [address] [place] [address] Performed By: #### 2 4323-8 ####[facility] LABCLIA [id number] [place] [address] ALP [Catalytic activity/Vol] 45 U/L Normal 34-123 [facility] Comment on above: Order Comment: Speci men Type: BLOOD SPECIMENOrdering Facility: [facility] Address: [address] [place] [address] Performed By: #### 2 4323-8 ####[facility] LABCLIA [id number] [place] [address] ALT [Catalytic activity/Vol] 11 U/L Normal 7-38 [facility] Comment on above: Order Comment: Speci men Type: BLOOD SPECIMENOrdering Facility: [facility] Address: [address] [place] [address] Performed By: #### 2 4323-8 ####[facility] LABCLIA [id number] [place] [address] Anion gap [Moles/Vol] 7 mmol/L Low 9-18 [facility] Comment on above: Order Comment: Speci men Type: BLOOD SPECIMENOrdering Facility: [facility] Address: [address] [place] [address] Performed By: #### 2 4323-8 ####[facility] LABCLIA [id number] [place] [address] AST [Catalytic activity/Vol] 22 U/L Normal 13-35 [facility] Comment on above: Order Comment: Speci men Type: BLOOD SPECIMENOrdering Facility: [facility] Address: [address] [place] [address] Performed By: #### 2 4323-8 ####[facility] LABCLIA [id number] [place] [address] Bilirubin [Mass/Vol] 0.4 mg/dL Normal 0.2-1.3 [facility] Comment on above: Order Comment: Speci men Type: BLOOD SPECIMENOrdering Facility: [facility] Address: [address] [place] [address] Performed By: #### 2 4323-8 ####[facility] LABCLIA [id number] [place] [address] Calcium [Mass/Vol] 9.7 mg/dL Normal 8.5-10.2 [facility] Comment on above: Order Comment: Speci men Type: BLOOD SPECIMENOrdering Facility: [facility] Address: [address] [place] [address] Performed By: #### 2 4323-8 ####[facility] LABCLIA [id number] [place] [address] Chloride [Moles/Vol] 102 mmol/L Normal 97-105 [facility] Comment on above: Order Comment: Speci men Type: BLOOD SPECIMENOrdering Facility: [facility] Address: [address] [place] [address] Performed By: #### 2 4323-8 ####[facility] LABCLIA [id number] [place] [address] CO2 [Moles/Vol] 29 mmol/L Normal 22-30 [facility] Comment on above: Order Comment: Speci men Type: BLOOD SPECIMENOrdering Facility: [facility] Address: [address] [place] [address] Performed By: #### 2 4323-8 ####[facility] LABCLIA [id number] [place] [address] Creatinine [Mass/Vol] 0.85 mg/dL Normal 0.58-0.96 [facility] Comment on above: Order Comment: Speci men Type: BLOOD SPECIMENOrdering Facility: [facility] Address: [address] [place] [address] Performed By: #### 2 4323-8 ####[facility] LABCLIA [id number] [place] [address] ESTIMATED GLOMERULAR FILTRATION RATE 66 mL/min/1.73m??? Normal >=60 [facility] Comment on above: Order Comment: Speci men Type: BLOOD SPECIMENOrdering Facility: [facility] Address: [address] [place] [address] Result Comment: Kala mated Glomerular Filtration Rate [...] actual GFR. Performed By: #### 2 4323-8 ####[facility] LABCLIA [id number] [place] [address] Glucose [Mass/Vol] 60 mg/dL Low 74-99 [facility] Comment on above: Order Comment: Speci men Type: BLOOD SPECIMENOrdering Facility: [facility] Address: [address] [place] [address] Result Comment: The [place] [employer] (ADA) provides guidance for cutoff [...] Standards of Medical Care in Diabetes 2016, [place] [employer]. Diabetes Care. 2016.39(Suppl 1). Performed By: #### 2 4323-8 ####[facility] LABCLIA [id number] [place] [address] Potassium [Moles/Vol] 5.1 mmol/L Normal 3.7-5.1 [facility] Comment on above: Order Comment: Yamileti men Type: BLOOD SPECIMENOrdering Facility: [facility] Address: [address] [place], [place] [address] Performed By: #### 2 4323-8 ####[facility] LABCLIA [id number] [place] [address] Protein [Mass/Vol] 6.8 g/dL Normal 6.3-8.0 [facility] Comment on above: Order Comment: Speci men Type: BLOOD SPECIMENOrdering Facility: [facility] Address: [address] [place] [address] Performed By: #### 2 4323-8 ####[facility] LABCLIA [id number] [place] [address] Sodium [Moles/Vol] 138 mmol/L Normal 136-144 [facility] Comment on above: Order Comment: Speci men Type: BLOOD SPECIMENOrdering Facility: [facility] Address: [address] [place] [address] Performed By: #### 2 4323-8 ####[facility] LABCLIA [id number] [place] [address] Urea nitrogen [Mass/Vol] 14 mg/dL Normal 7-21 [facility] Comment on above: Order Comment: Speci men Type: BLOOD SPECIMENOrdering Facility: [facility] Address: [address] [place] [address] Performed By: #### 2 4323-8 ####[facility] LABCLIA [id number] [place] [address] Albumin [Mass/Vol] 4.4 g/dL 3.9 - 4.9 g/dL [facility] ALP [Catalytic activity/Vol] 45 U/L 34 - 123 U/L [facility] ALT [Catalytic activity/Vol] 11 U/L 7 - 38 U/L [facility] Anion gap [Moles/Vol] 7 mmol/L Low 9 - 18 mmol/L [facility] AST [Catalytic activity/Vol] 22 U/L 13 - 35 U/L [facility] Bilirubin [Mass/Vol] 0.4 mg/dL 0.2 - 1 .3 mg/dL [facility] Calcium [Mass/Vol] 9.7 mg/dL 8.5 - 10. 2 mg/dL [facility] Chloride [Moles/Vol] 102 mmol/L 97 - 10 5 mmol/L [facility] CO2 [Moles/Vol] 29 mmol/L 22 - 30 mmol/L [facility] Creatinine [Mass/Vol] 0.85 mg/dL 0.58 - 0.96 mg/dL [facility] Estimated Glomerular Filtration Rate 66 mL/min/1.73m >=60 mL/min/1.73m [facility] Glucose [Mass/Vol] 60 mg/dL Low 74 - 99 mg/dL [facility] Potassium [Moles/Vol] 5.1 mmol/L 3.7 - 5.1 mmol/L [facility] Protein [Mass/Vol] 6.8 g/dL 6.3 - 8.0 g/dL [facility] Sodium [Moles/Vol] 138 mmol/L 136 - 144 mmol/L [facility] Urea nitrogen [Mass/Vol] 14 mg/dL 7 - 21 mg/dL [facility] Ferritin SerPl-ncon 2021 Ferritin [Mass/Vol] 84.5 ng/mL Normal 14.7-205.1 [facility] Comment on above: Order Comment: Speci men Type: BLOOD SPECIMENOrdering Facility: [facility] Address: [address] [place] [address] Performed By: #### 2 276-4 ####[facility] [id number] [place] [address] [place] Iron and Iron binding capaci ty panelon 11-16-2021 Iron [Mass/Vol] 71 ug/dL Normal 41-186 [facility] Comment on above: Order Comment: Speci men Type: BLOOD SPECIMENOrdering Facility: [facility] Address: [address] [place] [address] Performed By: #### 5 0190-8 ####[facility] LABIA [id number] [place] [address] [place] Iron binding capacity [Mass/Vol] 376 ug/dL Normal 232-386 [facility] Comment on above: Order Comment: Speci men Type: BLOOD SPECIMENOrdering Facility: [facility] Address: [address] [address] Performed By: #### 5 0190-8 ####[facility] LABCLIA [id number] [address] Iron/TIBC [Molar ratio] 18.9 % Normal 15.0-57.0 [facility] Comment on above: Order Comment: Speci men Type: BLOOD SPECIMENOrdering Facility: [facility] Address: [address] [address] Performed By: #### 5 0190-8 ####[facility] LABCLIA [id number] [address] FERRITINon 10-25-2021 Ferritin [Mass/Vol] 79.0 ng/mL Normal 8.0-252.0 [facility] Comment on above: Performed By: #### F ETIBC, FERR ####[facility] [address] [place], [place] [address]Dr. Devorah James IRON AND TIBCon 10-25-2021 % SATURATION 13.2 % Normal [facility] Comment on above: Performed By: #### F ETIBC, FERR ####[facility] [address] [place], [place] [address]Dr. Devorah James Iron [Mass/Vol] 38.0 ug/dL Critically low 50.0-170.0 [facility] Comment on above: Performed By: #### F ETIBC, FERR ####[facility] [address] [address]Dr. Devorah James TIBC DIRECT 288.0 ug/dL Normal 250.0-450.0 [facility] Comment on above: Performed By: #### F ETIBC, FERR ####[facility] [address] [place], [place] [address]Dr. Devorah James RETICULOCYTEon 10-25-2021 RETIC 1.23 % Normal 0.60-3.10 [facility] Comment on above: Performed By: #### R ETIC ####[facility] [address] [place], [place] [address]NdDarvin Lua 09-28-2021 CNPN Telephone (HEMASA) NINA ESCALONA ([id number]) 1935 F Date Time Provider Department 09/28/21 CHARISMA CYR During your visit today, we recorded the following information about you: Charisma Cyr RN 09/28/2021 2:16 PM Signed ----- Message from Sherron Lyon RN sent at 09/28/2021 9:05 AM EDT ----- ----- Message ----- From: Binh Hernandez MD Sent: 09/27/2021 6:12 PM EDT To: Sherron Lyon RN Al Tiff. Can you please let patient know [...] Status:Closed by CHARISMA CYR on 09/28/21 Normal [facility] CBC W Auto Differential pane l (Bld)on 09-26-2021 Basophils (Bld) [#/Vol] 0.05 10*3/uL Normal <0.11 [facility] Comment on above: Order Comment: Speci men Type: BLOOD SPECIMENOrdering Facility: [facility] Address: [address] [place] [address] Performed By: #### 5 7021-8 ####[facility] LABCLIA [id number] [place] [address] Basophils/100 WBC (Bld) 0.9 % Normal [facility] Comment on above: Order Comment: Speci men Type: BLOOD SPECIMENOrdering Facility: [facility] Address: [address] [address] Performed By: #### 5 7021-8 ####[facility] LABCLIA [id number] [place] [address] Differential cell count method Nom (Bld) Auto Normal [facility] Comment on above: Order Comment: Speci men Type: BLOOD SPECIMENOrdering Facility: [facility] Address: [address] [place] [address] Performed By: #### 5 7021-8 ####[facility] LABCLIA [id number] [place] [address] Eosinophils (Bld) [#/Vol] 0.23 10*3/uL Normal <0.46 [facility] Comment on above: Order Comment: Speci men Type: BLOOD SPECIMENOrdering Facility: [facility] Address: [address] [place] [address] Performed By: #### 5 7021-8 ####[facility] LABCLIA [id number] [place] [address] Eosinophils/100 WBC (Bld) 4.1 % Normal [facility] Comment on above: Order Comment: Speci men Type: BLOOD SPECIMENOrdering Facility: [facility] Address: [address] [place] [address] Performed By: #### 5 7021-8 ####[facility] LABCLIA [id number] [place] [address] Erythrocyte distribution width (RBC) [Ratio] 24.6 % High 11.5-15.0 [facility] Comment on above: Order Comment: Speci men Type: BLOOD SPECIMENOrdering Facility: [facility] Address: [address] [place], [place] [address] Performed By: #### 5 7021-8 ####[facility] LABCLIA [id number] [place] [address] Hematocrit (Bld) [Volume fraction] 43.4 % Normal 36.0-46.0 [facility] Comment on above: Order Comment: Speci men Type: BLOOD SPECIMENOrdering Facility: [facility] Address: [address] [place], [place] [address] Performed By: #### 5 7021-8 ####[facility] LABCLIA [id number] [place] [address] Hemoglobin (Bld) [Mass/Vol] 13.4 g/dL Normal 11.5-15.5 [facility] Comment on above: Order Comment: Speci men Type: BLOOD SPECIMENOrdering Facility: [facility] Address: [address] [place] [address] Performed By: #### 5 7021-8 ####[facility] LABCLIA [id number] [place] [address] IMMATURE GRAN % 0.5 % Normal [facility] Comment on above: Order Comment: Speci men Type: BLOOD SPECIMENOrdering Facility: [facility] Address: [address] [place] [address] Performed By: #### 5 7021-8 ####[facility] LABCLIA [id number] [place] [address] IMMATURE GRAN ABS 0.03 k/uL Normal <0.10 [facility] Comment on above: Order Comment: Speci men Type: BLOOD SPECIMENOrdering Facility: [facility] Address: [address] [place] [address] Performed By: #### 5 7021-8 ####[facility] LABCLIA [id number] [place] [address] Lymphocytes (Bld) [#/Vol] 1.30 10*3/uL Normal 1.00-4.00 [facility] Comment on above: Order Comment: Speci men Type: BLOOD SPECIMENOrdering Facility: [facility] Address: [address] [place] [address] Performed By: #### 5 7021-8 ####[facility] LABIA [id number] [place] [address] Lymphocytes/100 WBC (Bld) 23.2 % Normal [facility] Comment on above: Order Comment: Speci men Type: BLOOD SPECIMENOrdering Facility: [facility] Address: [address] [place] [address] Performed By: #### 5 7021-8 ####[facility] LABCLIA [id number] [place] [address] MCH (RBC) [Entitic mass] 25.3 pg Low 26.0-34.0 [facility] Comment on above: Order Comment: Speci men Type: BLOOD SPECIMENOrdering Facility: [facility] Address: [address] [place] [address] Performed By: #### 5 7021-8 ####[facility] LABCLIA [id number] [place] [address] MCHC (RBC) [Mass/Vol] 30.9 g/dL Normal 30.5-36.0 [facility] Comment on above: Order Comment: Speci men Type: BLOOD SPECIMENOrdering Facility: [facility] Address: [address] [place] [address] Performed By: #### 5 7021-8 ####[facility] LABIA [id number] [place] [address] MCV (RBC) [Entitic vol] 81.9 fL Normal 80.0-100.0 [facility] Comment on above: Order Comment: Speci men Type: BLOOD SPECIMENOrdering Facility: [facility] Address: [address] [place] [address] Performed By: #### 5 7021-8 ####[facility] LABCLIA [id number] [place] [address] Monocytes (Bld) [#/Vol] 0.52 10*3/uL Normal <0.87 [facility] Comment on above: Order Comment: Speci men Type: BLOOD SPECIMENOrdering Facility: [facility] Address: [address] [place] [address] Performed By: #### 5 7021-8 ####[facility] LABCLIA [id number] [place] [address] Monocytes/100 WBC (Bld) 9.3 % Normal [facility] Comment on above: Order Comment: Speci men Type: BLOOD SPECIMENOrdering Facility: [facility] Address: [address] [place] [address] Performed By: #### 5 7021-8 ####[facility] LABCLIA [id number] [place] [address] Neutrophils (Bld) [#/Vol] 3.47 10*3/uL Normal 1.45-7.50 [facility] Comment on above: Order Comment: Speci men Type: BLOOD SPECIMENOrdering Facility: [facility] Address: [address] [place] [address] Performed By: #### 5 7021-8 ####[facility] LABCLIA [id number] [place] [address] Neutrophils/100 WBC (Bld) 62.0 % Normal [facility] Comment on above: Order Comment: Speci men Type: BLOOD SPECIMENOrdering Facility: [facility] Address: [address] [place] [address] Performed By: #### 5 7021-8 ####[facility] LABCLIA [id number] [place] [address] Nucleated RBC (Bld) [#/Vol] 10*3/uL Normal <0.01 [facility] Comment on above: Order Comment: Speci men Type: BLOOD SPECIMENOrdering Facility: [facility] Address: [address] [place] [address] Performed By: #### 5 7021-8 ####[facility] LABIA [id number] [place] [address] Nucleated RBC/100 WBC (Bld) [Ratio] 0.0 /100 WBC Normal [facility] Comment on above: Order Comment: Speci men Type: BLOOD SPECIMENOrdering Facility: [facility] Address: [address] [place], [place] [id number] Performed By: #### 5 7021-8 ####[facility] LABCLIA [id number] [place] [address] Platelet mean volume (Bld) [Entitic vol] 9.9 fL Normal 9.0-12.7 [facility] Comment on above: Order Comment: Speci men Type: BLOOD SPECIMENOrdering Facility: [facility] Address: [address] [place] [address] Performed By: #### 5 7021-8 ####[facility] LABCLIA [id number] [place] [address] Platelets (Bld) [#/Vol] 175 10*3/uL Normal 150-400 [facility] Comment on above: Order Comment: Speci men Type: BLOOD SPECIMENOrdering Facility: [facility] Address: [address] [place] [address] Performed By: #### 5 7021-8 ####[facility] LABCLIA [id number] [place] [address] RBC (Bld) [#/Vol] 5.30 10*6/uL High 3.90-5.20 [facility] Comment on above: Order Comment: Speci men Type: BLOOD SPECIMENOrdering Facility: [facility] Address: [address] [place], [place] [id number] Performed By: #### 5 7021-8 ####[facility] LABCLIA [id number] [place] [address] WBC (Bld) [#/Vol] 5.60 10*3/uL Normal 3.70-11.00 [facility] Comment on above: Order Comment: Speci men Type: BLOOD SPECIMENOrdering Facility: [facility] Address: [address] [place] [address] Performed By: #### 5 7021-8 ####[facility] LABCLIA [id number] [place] [address] Abs Immature Gran 0.03 k/uL <0.10 k/uL [facility] Basophils (Bld) [#/Vol] 0.05 10*3/uL <0.11 k/uL [facility] Basophils/100 WBC (Bld) 0.9 % [facility] Differential cell count method Nom (Bld) Auto [facility] Eosinophils (Bld) [#/Vol] 0.23 10*3/uL <0.46 k/uL [facility] Eosinophils/100 WBC (Bld) 4.1 % [facility] Erythrocyte distribution width (RBC) [Ratio] 24.6 % High 11.5 - 15.0 % [facility] Hematocrit (Bld) [Volume fraction] 43.4 % 36.0 - 46.0 % [facility] Hemoglobin (Bld) [Mass/Vol] 13.4 g/dL 11.5 - 15.5 g/dL [facility] Immature Gran % 0.5 % [facility] Lymphocytes (Bld) [#/Vol] 1.30 10*3/uL 1.00 - 4.00 k/uL [facility] Lymphocytes/100 WBC (Bld) 23.2 % [facility] MCH (RBC) [Entitic mass] 25.3 pg Low 26.0 - 34.0 pg [facility] MCHC (RBC) [Mass/Vol] 30.9 g/dL 30.5 - 36.0 g/dL [facility] MCV (RBC) [Entitic vol] 81.9 fL 80.0 - 100.0 fL [facility] Monocytes (Bld) [#/Vol] 0.52 10*3/uL <0.87 k/uL [facility] Monocytes/100 WBC (Bld) 9.3 % [facility] Neutrophils (Bld) [#/Vol] 3.47 10*3/uL 1.45 - 7.50 k/uL [facility] Neutrophils/100 WBC (Bld) 62.0 % [facility] Nucleated RBC (Bld) [#/Vol] 10*3/uL <0.01 k/uL [facility] Nucleated RBC/100 WBC (Bld) [Ratio] 0.0 /100 WBC [facility] Platelet mean volume (Bld) [Entitic vol] 9.9 fL 9.0 - 12.7 fL [facility] Platelets (Bld) [#/Vol] 175 10*3/uL 150 - 400 k/uL [facility] RBC (Bld) [#/Vol] 5.30 10*6/uL High 3.90 - 5.2 0 m/uL [facility] WBC (Bld) [#/Vol] 5.60 10*3/uL 3.70 - 11. 00 k/uL [facility] CNOVSPon 09-26-2021 CNOVSP Visit (SP) Office ([facility]) NINA ESCALONA ([id number]) 1935 F Date Time Provider Department 09/26/21 [...] mentions being iron deficient in 2019 or 2020 for which she took oral iron for [...] which included preparing to see the patient, ultv-of-ifsf patient care, completing clinical documentation, obtaining and/or reviewing separately obtained history, performing a medically appropriate examination, counseling and educating the patient/family/careg iver, ordering medications, tests, or procedures, independently interpreting results (not separately reported) and communicating results to the patient/family/careg iver. CC: Erik Zimmerman Referring Provider: BINH HERNANDEZ [[id number]] Allergies As of Date: 09/26/2021 Noted Allergy Reaction EYE DROPS RELIEF 11/25/2013 16 - Unknown Comments: Glaucoma eye drops PREDNISONE 11/25/2013 14 - Other: See Comments Comments: Palpitations, sob Date Reviewed: 09/26/2021 Reviewed by: Sade Padilla Ma - Fully Assessed Reason for Visit: Anemia [6] Primary Visit Diagnosis:Iron deficiency anemia due to chronic blood loss [D50.0] Order(s):CBC + DIFF [SQCBCDIF] Order #: [id number] FUTURE IRON + TIBC [SQIRON] Order #: [id number] FUTURE FERRITIN BLD [SQFERR] Order #: [id number] FUTURE famotidine (PEPCID) 20 mg tabletTake 1 tablet by mouth twice daily.Disp: 60 tabletRfl: 3 CBC + DIFF [SQCBCDIF] Order #: [id number] FUTURE IRON + TIBC [SQIRON] Order #: [id number] FUTURE FERRITIN BLD [SQFERR] Order #: [id number] FUTURE Disposition: Return in about 6 weeks (around 11/07/2021). Follow-up and Disposition History for Encounter Date Provider Department Center 09/26/2021 [id number] HERNANDEZ [facility] Prescriptions as of 09/26/2021 - aspirin 81 mg chewable tablet Take 81 mg by mouth once daily. - famotidine (PEPCID) 20 mg tablet Take 1 tablet by mouth twice daily. - latanoprost (XALATAN) 0.005 % ophthalmic solution INSTILL 1 DROP RIGHT EYE [place] (more content not included)... Normal [facility] Ferritin SerPl-mCncon 2021 Ferritin [Mass/Vol] 116.0 ng/mL Normal 14.7-205.1 [facility] Comment on above: Order Comment: Speci men Type: BLOOD SPECIMENOrdering Facility: [facility] Address: [address] [place] [address] Performed By: #### 5 0190-8, 2276-4 ####[facility] LABCLIA [id number] [place] [address] [place] Iron and Iron binding capaci ty panelon 09-26-2021 Iron [Mass/Vol] 39 ug/dL Low 41-186 [facility] Comment on above: Order Comment: Speci men Type: BLOOD SPECIMENOrdering Facility: [facility] Address: [address] [place] [address] Performed By: #### 5 0190-8, 6-4 ####[facility] LABCLIA [id number] [place] [address] [place] Iron binding capacity [Mass/Vol] 348 ug/dL Normal 232-386 [facility] Comment on above: Order Comment: Speci men Type: BLOOD SPECIMENOrdering Facility: [facility] Address: [address] [place] [address] Performed By: #### 5 0190-8, 2275-4 ####[facility] LABCLIA [id number] [place] [address] [place] Iron/TIBC [Molar ratio] 11.2 % Low 15.0-57.0 [facility] Comment on above: Order Comment: Speci men Type: BLOOD SPECIMENOrdering Facility: [facility] Address: [address] [place] [address] Performed By: #### 5 0190-8, 2275-4 ####[facility] LABCLIA [id number] [place] [address] [place] PROF CHEM 8 (BAS METB)on Anion gap [Moles/Vol] 12.6 mmol/L Normal [facility] Comment on above: Performed By: #### B MP ####[facility] [address] [place], [place] [address]DaDarvin James Calcium [Mass/Vol] 8.4 mg/dL Critically low 8.5-10.1 [facility] Comment on above: Performed By: #### B MP ####[facility] [address] [place] [id number]. Devorah James Chloride [Moles/Vol] 104 mmol/L Normal 98-107 [facility] Comment on above: Performed By: #### B MP ####[facility] [address] [place] [address]Dr. Devorah James CO2 [Moles/Vol] 25.8 mmol/L Normal 21.0-32.0 [facility] Comment on above: Performed By: #### B MP ####[facility] [address] [place] [id number]. Devorah Jacob Creatinine [Mass/Vol] 0.96 mg/dL Normal 0.55-1.02 [facility] Comment on above: Performed By: #### B MP ####[facility] [address] [place] [address]Dr. Elsycindy Jacob EGFR-AF CROATIAN >60 Normal >=60 [facility] Comment on above: Performed By: #### B MP ####[facility] [address] [place] [address]Dr. Elsycindy Jacob EGFR-NON AF CROATIAN 55 mL/min/1.73m2 Critically low >=60 [facility] Comment on above: Performed By: #### B MP ####[facility] [address] [place] [address]Dr. Elsycindy Jacob Glucose [Mass/Vol] 74 mg/dL Normal 74-106 [facility] Comment on above: Performed By: #### B MP ####[facility] [address] [place] [address]Dr. Devroah James Potassium [Moles/Vol] 4.4 mmol/L Normal 3.5-5.1 [facility] Comment on above: Performed By: #### B MP ####[facility] [address] [place] [address]Dr. Devorah James Sodium [Moles/Vol] 138 mmol/L Normal 136-145 [facility] Comment on above: Performed By: #### B MP ####[facility] [address] [place], [place] [address]DrDarvin James Urea nitrogen [Mass/Vol] 16.0 mg/dL Normal 7.0-18.0 [facility] Comment on above: Performed By: #### B MP ####[facility] [address] [place] [id number] James Urea nitrogen/Creatinine [Mass ratio] 16.7 mg/mg Normal [facility] Comment on above: Performed By: #### B MP ####[facility] [address] [place] [id number]. Devorah James VITAMIN D 25 OHon 09-20-2021 VIT D 25-OH 51.6 ng/mL Normal [facility] Comment on above: Performed By: #### V ITAD #### [facility] [address] [place] [address] Dr. Devorah James VIT D RANGES SEE BELOW Normal [facility] Comment on above: Result Comment: <20 ng/mL Vit D deficient 20 - <30 ng/mL Vit D insufficient 30 - 100 ng/mL Vit D sufficient >100 ng/mL Potential Toxicity Performed By: #### V ITAD #### [facility] [address] [place] [address] [address] Devorah James LACTOFERRIN FECAL QUANTon Lactoferrin, Fecal, Quant. 4.46 ug/mL(g) Normal 0.00-7.24 [facility] Comment on above: Result Comment: . [...] (IBS). Performed By: #### L ACTFQ #### [facility] [address] [place] [address] [address] Devorah James C. DIFF PCRon 09-02-2021 C. DIFFICILE PCR Negative Normal NEGATIVE [facility] Comment on above: Performed By: #### C DIFPOC #### [facility] [address] [place], [place] [address] Dr. Devorah James OCC BLD IMMUNO SCREENon 07-0 OCCULT BLOOD Negative Normal NEGATIVE [facility] Comment on above: Performed By: #### O BSCRN ####[facility] [address] [place], [place] [address]LbDr. Devorah James MG MAMM SCREEN 3D VALERIY CADon 08-04-2021 MG MAMM SCREEN 3D VALERIY CAD Patient: NINA ESCALONA Exam Date: 08/04/2021 : 1935 Gender:F Ordering : DR ERIK ZIMMERMAN D.O. Admission #: [id number] Family : Order #: [id number] CLICK HERE TO VIEW EXAM RADIOLOGY REPORT [...] panc/liver cancer at age 74. LOCATION: [facility] BREAST COMPOSITION: Scattered areas fibroglandular density. [...] Aviles M.D. on 08/04/2021 at 13:54 Normal [facility] CNOVSPon 07-26-2021 CNOVSP Visit (SP) Office ([facility]) NINA ESCALONA ([id number]) 1935 F Date Time Provider Department 07/26/21 [...] which included preparing to see the patient, oyxg-bi-ckjl patient care, completing clinical documentation, obtaining and/or reviewing separately obtained history, performing a medically appropriate examination, counseling and educating the patient/family/careg iver, ordering medications, tests, or procedures, independently interpreting results (not separately reported) and communicating results to the patient/family/careg iver. CC: Erik Zimmerman Referring Provider: BINH HERNANDEZ [[id number]] Allergies As of Date: 07/26/2021 Noted Allergy [...] for Encounter Date Provider Department Center 07/26/2021 [id number] HERNANDEZ [facility] Prescriptions as of 07/26/2021 - latanoprost (XALATAN) [...] (HCC) [M31.4] (more content not included)... [facility] C[facility]N Tele[facility] ([facility]) NINA ESCALONA ([id number]) 1935 F Date Time Provider Department 07/18/21 [...] still be in for her f/u with [facility]. Thank you. NASEEM Vallejo Pss 07/18/2021 3:22 [...] Status:Closed by CHARISMA HENDERSON on 07/18/21 Normal [facility] CBC AUTO DIFFon 07-12-2021 BASO # 0.1 103/ul Normal 0.0-0.1 [facility] Comment on above: Performed By: #### C BC #### [facility] [address] [place] [address] [address] Devorah James Basophils/100 WBC (Bld) 1.1 % Normal 0.2-2.0 [facility] Comment on above: Performed By: #### C BC #### [facility] [address] [place] [address] [address] Devorah James EO # 0.3 103/ul Normal 0.0-0.7 [facility] Comment on above: Performed By: #### C BC #### [facility] [address] [place] [address] Dr. Devorah James Eosinophils/100 WBC (Bld) 4.8 % Normal 0.9-7.0 [facility] Comment on above: Performed By: #### C BC #### [facility] [address] [place] [address] Dr. Devorah James Erythrocyte distribution width (RBC) [Ratio] 24.4 % Critically high 11.0-15.0 [facility] Comment on above: Performed By: #### C BC #### [facility] [address] [place] [address] Dr. Devorah James Hematocrit (Bld) [Volume fraction] 35.0 % Critically low 36.0-48.0 [facility] Comment on above: Performed By: #### C BC #### [facility] [address] [place] [address] Dr. Devorah James Hemoglobin (Bld) [Mass/Vol] 9.6 g/dL Critically low 12.0-16.0 [facility] Comment on above: Performed By: #### C BC #### [facility] [address] [place] [address] Dr. Devorah James IG # 0.02 10e3/ul Normal 0.00-0.03 [facility] Comment on above: Performed By: #### C BC #### [facility] [address] [place] [address] Dr. Devorah James IG % 0.4 % Normal 0.0-0.5 [facility] Comment on above: Performed By: #### C BC #### [facility] [address] [place] [address] Dr. Devorah James LYMPH # 1.4 103/ul Normal 1.2-3.8 [facility] Comment on above: Performed By: #### C BC #### [facility] [address] [place] [address] Dr. Devorah James Lymphocytes/100 WBC (Bld) 24.7 % Normal 20.5-60.0 [facility] Comment on above: Performed By: #### C BC #### [facility] [address] [place] [address] Dr. Devorah James MANUAL DIFF REQ NO Normal [facility] Comment on above: Performed By: #### C BC #### [facility] [address] [place] [address] Dr. Devorah James MCH (RBC) [Entitic mass] 20.2 pg Critically low 26.7-34.0 [facility] Comment on above: Performed By: #### C BC #### [facility] [address] [place] [address] Dr. Devorah James MCHC (RBC) [Mass/Vol] 27.4 g/dL Critically low 29.9-35.2 [facility] Comment on above: Performed By: #### C BC #### [facility] [address] [place] [address] Dr. Devorah James MCV (RBC) [Entitic vol] 73.7 fL Critically low 81.0-99.0 [facility] Comment on above: Performed By: #### C BC #### [facility] [address] [place] [address] Dr. Devorah James MONO # 0.6 103/ul Normal 0.3-0.8 [facility] Comment on above: Performed By: #### C BC #### [facility] [address] [place] [address] Dr. Devorah James Monocytes/100 WBC (Bld) 11.2 % Normal 1.7-12.0 [facility] Comment on above: Performed By: #### C BC #### [facility] [address] [place] [address] Dr. Devorah James NEUT # 3.2 103/ul Normal 1.4-6.5 [facility] Comment on above: Performed By: #### C BC #### [facility] [address] [place] [address] Dr. Devorah James Neutrophils/100 WBC (Bld) 57.8 % Normal 43.0-75.0 [facility] Comment on above: Performed By: #### C BC #### [facility] [address] [place] [address] Dr. Devorah James Platelet mean volume (Bld) [Entitic vol] 10.2 fL Normal 9.5-13.5 [facility] Comment on above: Performed By: #### C BC #### [facility] [address] [place] [address] Dr. Devorah James PLT 212 103/ul Normal 150-450 [facility] Comment on above: Performed By: #### C BC #### [facility] [address] [place] [address] Dr. Devorah James RBC 4.75 106/ul Normal 4.20-5.40 [facility] Comment on above: Result Comment: hypo chromic 2+, anisocytosis, microcytic Performed By: #### C BC #### [facility] [address] [place] [address] Dr. Devorah James WBC 5.5 103/ul Normal 4.0-11.0 [facility] Comment on above: Performed By: #### C BC #### [facility] [address] [place] [address] Dr. Devorah James FERRITINon 07-12-2021 Ferritin [Mass/Vol] 86.0 ng/mL Normal 8.0-252.0 [facility] Comment on above: Performed By: #### F ERR, FETIBC #### [facility] [address] [place] [address] Dr. Devorah James IRON AND TIBCon 07-12-2021 % SATURATION 6.1 % Normal [facility] Comment on above: Performed By: #### F ERR, FETIBC #### [facility] [address] [place] [address] Dr. Devorah James Iron [Mass/Vol] 24.0 ug/dL Critically low 50.0-170.0 [facility] Comment on above: Performed By: #### F ERR, FETIBC #### [facility] [address] [place], [place] [address] Dr. Devorah James [facility] 396.0 ug/dL Normal 250.0-450.0 [facility] Comment on above: Performed By: #### F ERR, SRINIVASIBC #### [facility] [address] [place], [place] [address] Dr. Devorah James CNPNon 06-24-2021 CNPN Telephone ([facility]) NINA ESCALONA ([id number]) 1935 F Date Time Provider Department 06/24/21 [...] after her 09/01 appt. [facility]: Please advise. NASEEM Vallejo MD 06/24/2021 1:16 [...] Encounter Status:Closed by CHARISMA HENDERSON on 06/24/21 [facility] Stoney 06-16-2021 [place] Telephone ([facility]) NINA ESCALONA ([id number]) 1935 F Date Time Provider Department 06/16/21 [...] Status:Closed by DARY BRADEN on 06/28/21 Normal [facility] CBC W Auto Differential pane l (Bld)on 06-14-2021 Basophils (Bld) [#/Vol] 0.06 10*3/uL Normal <0.11 [facility] Comment on above: Order Comment: Speci men Type: BLOOD SPECIMENOrdering Facility: [facility] Address: [address], [place] [address] Performed By: #### 1 4196-0, 19713-4 ####[facility] LABCLIA [id number] [place] [address] Basophils/100 WBC (Bld) 1.2 % Normal [facility] Comment on above: Order Comment: Speci men Type: BLOOD SPECIMENOrdering Facility: [facility] Address: [address] [place] [address] Performed By: #### 1 4196-0, ####[facility] LABCLIA [id number] [place] [address] Differential cell count method Nom (Bld) Auto Normal [facility] Comment on above: Order Comment: Speci men Type: BLOOD SPECIMENOrdering Facility: [facility] Address: [address] [place] [address] Performed By: #### 1 4196-0, ####[facility] LABCLIA [id number] [place] [address] Eosinophils (Bld) [#/Vol] 0.18 10*3/uL Normal <0.46 [facility] Comment on above: Order Comment: Speci men Type: BLOOD SPECIMENOrdering Facility: [facility] Address: [address] [place] [address] Performed By: #### 1 4196-0, ####[facility] LABCLIA [id number] [place] [address] Eosinophils/100 WBC (Bld) 3.6 % Normal [facility] Comment on above: Order Comment: Speci men Type: BLOOD SPECIMENOrdering Facility: [facility] Address: [address] [place] [address] Performed By: #### 1 4196-0, ####[facility] LABCLIA [id number] [place] [address] Erythrocyte distribution width (RBC) [Ratio] 18.1 % High 11.5-15.0 [facility] Comment on above: Order Comment: Speci men Type: BLOOD SPECIMENOrdering Facility: [facility] Address: [address] [place] [address] Performed By: #### 1 4196-0, 78035-7 ####[facility] LABCLIA [id number] [place] [address] Hematocrit (Bld) [Volume fraction] 32.6 % Low 36.0-46.0 [facility] Comment on above: Order Comment: Speci men Type: BLOOD SPECIMENOrdering Facility: [facility] Address: [address] [place] [address] Performed By: #### 1 4196-0, 03155-0 ####[facility] LABIA [id number] [place] [address] Hemoglobin (Bld) [Mass/Vol] 8.9 g/dL Low 11.5-15.5 [facility] Comment on above: Order Comment: Speci men Type: BLOOD SPECIMENOrdering Facility: [facility] Address: [address] [place] [address] Performed By: #### 1 4196-0, 82350-5 ####[facility] LABIA [id number] [place] [address] IMMATURE GRAN % 0.4 % Normal [facility] Comment on above: Order Comment: Speci men Type: BLOOD SPECIMENOrdering Facility: [facility] Address: [address] [place] [address] Performed By: #### 1 4196-0, 34918-7 ####[facility] LABIA [id number] [place] [address] IMMATURE GRAN ABS <0.03 Normal <0.10 [facility] Comment on above: Order Comment: Speci men Type: BLOOD SPECIMENOrdering Facility: [facility] Address: [address] [place], [place] [address] Performed By: #### 1 4196-0, 09927-1 ####[facility] LABCLIA [id number] [place] [address] Lymphocytes (Bld) [#/Vol] 1.07 10*3/uL Normal 1.00-4.00 [facility] Comment on above: Order Comment: Speci men Type: BLOOD SPECIMENOrdering Facility: [facility] Address: [address] [place] [address] Performed By: #### 1 4196-0, 98510-3 ####[facility] LABCLIA [id number] [place] [address] Lymphocytes/100 WBC (Bld) 21.6 % Normal [facility] Comment on above: Order Comment: Speci men Type: BLOOD SPECIMENOrdering Facility: [facility] Address: [address] [place] [address] Performed By: #### 1 4196-0, 74904-1 ####[facility] LABCLIA [id number] [place] [address] MCH (RBC) [Entitic mass] 19.0 pg Low 26.0-34.0 [facility] Comment on above: Order Comment: Speci men Type: BLOOD SPECIMENOrdering Facility: [facility] Address: [address] [place] [address] Performed By: #### 1 4196-0, 30685-2 ####[facility] LABCLIA [id number] [place] [address] MCHC (RBC) [Mass/Vol] 27.3 g/dL Low 30.5-36.0 [facility] Comment on above: Order Comment: Speci men Type: BLOOD SPECIMENOrdering Facility: [facility] Address: [address] [place] [address] Performed By: #### 1 4196-0, 22711-2 ####[facility] LABCLIA [id number] [place] [address] MCV (RBC) [Entitic vol] 69.7 fL Low 80.0-100.0 [facility] Comment on above: Order Comment: Speci men Type: BLOOD SPECIMENOrdering Facility: [facility] Address: [address] [place] [address] Performed By: #### 1 4196-0, 69566-8 ####[facility] LABCLIA [id number] [place] [address] Monocytes (Bld) [#/Vol] 0.68 10*3/uL Normal <0.87 [facility] Comment on above: Order Comment: Speci men Type: BLOOD SPECIMENOrdering Facility: [facility] Address: [address] [place] [address] Performed By: #### 1 4196-0, 37159-7 ####[facility] LABCLIA [id number] [place] [address] Monocytes/100 WBC (Bld) 13.7 % Normal [facility] Comment on above: Order Comment: Speci men Type: BLOOD SPECIMENOrdering Facility: [facility] Address: [address] [place] [address] Performed By: #### 1 4196-0, 74573-4 ####[facility] LABCLIA [id number] [place] [address] Neutrophils (Bld) [#/Vol] 2.94 10*3/uL Normal 1.45-7.50 [facility] Comment on above: Order Comment: Speci men Type: BLOOD SPECIMENOrdering Facility: [facility] Address: [address] [place] [address] Performed By: #### 1 4196-0, 90323-6 ####[facility] LABCLIA [id number] [place] [address] Neutrophils/100 WBC (Bld) 59.5 % Normal [facility] Comment on above: Order Comment: Speci men Type: BLOOD SPECIMENOrdering Facility: [facility] Address: [address] [place], [place] [address] Performed By: #### 1 4196-0, 96461-1 ####[facility] LABIA [id number] [place] [address] Nucleated RBC (Bld) [#/Vol] 10*3/uL Normal <0.01 [facility] Comment on above: Order Comment: Speci men Type: BLOOD SPECIMENOrdering Facility: [facility] Address: [address] [place], [place] [address] Performed By: #### 1 4196-0, 85297-9 ####[facility] LABIA [id number] [place] [address] Nucleated RBC/100 WBC (Bld) [Ratio] 0.0 /100 WBC Normal [facility] Comment on above: Order Comment: Speci men Type: BLOOD SPECIMENOrdering Facility: [facility] Address: [address] [place], [place] [address] Performed By: #### 1 4196-0, 46460-5 ####[facility] LABIA [id number] [place] [address] Platelet mean volume (Bld) [Entitic vol] 10.4 fL Normal 9.0-12.7 [facility] Comment on above: Order Comment: Speci men Type: BLOOD SPECIMENOrdering Facility: [facility] Address: [address] [place], [place] [address] Performed By: #### 1 4196-0, 63535-6 ####[facility] LABIA [id number] [place] [address] Platelets (Bld) [#/Vol] 230 10*3/uL Normal 150-400 [facility] Comment on above: Order Comment: Speci men Type: BLOOD SPECIMENOrdering Facility: [facility] Address: [address] [place], [place] [id number] Result Comment: Samp le checked for clot Performed By: #### 1 4196-0, 19761-8 ####[facility] LABCLIA [id number] [place] [address] RBC (Bld) [#/Vol] 4.68 10*6/uL Normal 3.90-5.20 [facility] Comment on above: Order Comment: Speci men Type: BLOOD SPECIMENOrdering Facility: [facility] Address: [address] [place] [address] Performed By: #### 1 4196-0, 41339-5 ####[facility] LABCLIA [id number] [place] [address] WBC (Bld) [#/Vol] 4.95 10*3/uL Normal 3.70-11.00 [facility] Comment on above: Order Comment: Speci men Type: BLOOD SPECIMENOrdering Facility: [facility] Address: [address] [place] [address] Performed By: #### 1 4196-0, 11656-9 ####[facility] LABCLIA [id number] [place] [id number] Abs Immature Gran <0.03 <0.10 k/uL [facility] Basophils (Bld) [#/Vol] 0.06 10*3/uL <0.11 k/uL [facility] Basophils/100 WBC (Bld) 1.2 % [facility] Differential cell count method Nom (Bld) Auto [facility] Eosinophils (Bld) [#/Vol] 0.18 10*3/uL <0.46 k/uL [facility] Eosinophils/100 WBC (Bld) 3.6 % [facility] Erythrocyte distribution width (RBC) [Ratio] 18.1 % High 11.5 - 15.0 % [facility] Hematocrit (Bld) [Volume fraction] 32.6 % Low 36.0 - 46.0 % [facility] ic Hemoglobin (Bld) [Mass/Vol] 8.9 g/dL Low 11.5 - 15.5 g/dL [facility] Immature Gran % 0.4 % [facility] Lymphocytes (Bld) [#/Vol] 1.07 10*3/uL 1.00 - 4.00 k/uL [facility] Lymphocytes/100 WBC (Bld) 21.6 % [facility] MCH (RBC) [Entitic mass] 19.0 pg Low 26.0 - 34.0 pg [facility] MCHC (RBC) [Mass/Vol] 27.3 g/dL Low 30.5 - 36.0 g/dL [facility] MCV (RBC) [Entitic vol] 69.7 fL Low 80.0 - 100.0 fL [facility] Monocytes (Bld) [#/Vol] 0.68 10*3/uL <0.87 k/uL [facility] Monocytes/100 WBC (Bld) 13.7 % [facility] Neutrophils (Bld) [#/Vol] 2.94 10*3/uL 1.45 - 7.50 k/uL [facility] Neutrophils/100 WBC (Bld) 59.5 % [facility] Nucleated RBC (Bld) [#/Vol] 10*3/uL <0.01 k/uL [facility] Nucleated RBC/100 WBC (Bld) [Ratio] 0.0 /100 WBC [facility] Platelet mean volume (Bld) [Entitic vol] 10.4 fL 9.0 - 12.7 fL [facility] inic Platelets (Bld) [#/Vol] 230 10*3/uL 150 - 400 k/uL [facility] RBC (Bld) [#/Vol] 4.68 10*6/uL 3.90 - 5.2 0 m/uL [facility] WBC (Bld) [#/Vol] 4.95 10*3/uL 3.70 - 11. 00 k/uL [facility] CNOVSPon 06-14-2021 CNOVSP Visit (SP) Office ([facility]) NINA ESCALONA ([id number]) 1935 F Date Time Provider Department 06/14/21 [...] which included preparing to see the patient, [id number]-[id number] patient care, completing clinical documentation, obtaining and/or reviewing separately obtained history, performing a medically appropriate examination, counseling and educating the patient/family/careg iver, ordering medications, tests, or procedures, independently interpreting results (not separately reported) and communicating results to the patient/family/careg iver. CC: Erik Zimmerman Referring Provider: ERIK ZIMMERMAN [[id number]] Allergies As of Date: 06/14/2021 Noted Allergy [...] [D50.0] Order(s):CBC + DIFF [SQCBCDIF] Order #: [id number] FUTURE COMP METABOLIC PANEL [SQCMP] Order #: [id number] FUTURE IRON + TIBC [SQIRON] Order #: [id number] FUTURE FERRITIN BLD [SQFERR] Order #: [id number] FUTURE RETIC COUNT [SQRETIC] Order #: [id number] FUTURE CONSULT TO GASTROENTEROLOGY [90 (more content not included)... Normal [facility] CNPNon 06-14-2021 CNPN Telephone (NCCAP) NINA ESCALONA ([id number]) 1935 F Date Time Provider Department 06/14/21 [facility]Z [facility] During your visit today, we recorded the following information about you: Lilian Valdez Sec 06/14/2021 12:33 PM Signed Patient is being referred to Gi Dr. Espana. Their office will call the patient to schedule this appt. Jackie, Please fax records to his office. Info has been printed for faxing and is in your mailbox. Thank you Devi [facility] 06/14/2021 1:14 PM Signed Records faxed [...] Status:Closed by LILIAN ROGERS on 06/22/21 Normal [facility] Comprehensive metabolic 2000 panelon 06-14-2021 Albumin [Mass/Vol] 4.6 g/dL Normal 3.9-4.9 [facility] Comment on above: Order Comment: Speci men Type: BLOOD SPECIMENOrdering Facility: [facility] Address: [address] [place] [address] Performed By: #### 2 4323-8 ####[facility] LABCLIA [id number] [place] [address] ALP [Catalytic activity/Vol] 42 U/L Normal 34-123 [facility] Comment on above: Order Comment: Speci men Type: BLOOD SPECIMENOrdering Facility: [facility] Address: [address] [place] [address] Performed By: #### 2 4323-8 ####[facility] LABCLIA [id number] [place] [address] ALT [Catalytic activity/Vol] 12 U/L Normal 7-38 [facility] Comment on above: Order Comment: Speci men Type: BLOOD SPECIMENOrdering Facility: [facility] Address: [address] [place] [address] Performed By: #### 2 4323-8 ####[facility] LABCLIA [id number] [place] [address] Anion gap [Moles/Vol] 8 mmol/L Low 9-18 [facility] Comment on above: Order Comment: Speci men Type: BLOOD SPECIMENOrdering Facility: [facility] Address: [address] [place] [address] Performed By: #### 2 4323-8 ####[facility] LABCLIA [id number] [place] [address] AST [Catalytic activity/Vol] 24 U/L Normal 13-35 [facility] Comment on above: Order Comment: Speci men Type: BLOOD SPECIMENOrdering Facility: [facility] Address: [address] [place], [place] [address] Performed By: #### 2 4323-8 ####[facility] LABCLIA [id number] [place] [address] Bilirubin [Mass/Vol] 0.3 mg/dL Normal 0.2-1.3 [facility] Comment on above: Order Comment: Speci men Type: BLOOD SPECIMENOrdering Facility: [facility] Address: [address] [place] [address] Performed By: #### 2 4323-8 ####[facility] LABCLIA [id number] [place] [address] Calcium [Mass/Vol] 9.5 mg/dL Normal 8.5-10.2 [facility] Comment on above: Order Comment: Speci men Type: BLOOD SPECIMENOrdering Facility: [facility] Address: [address] [place] [address] Performed By: #### 2 4323-8 ####[facility] LABCLIA [id number] [place] [address] Chloride [Moles/Vol] 102 mmol/L Normal 97-105 [facility] Comment on above: Order Comment: Speci men Type: BLOOD SPECIMENOrdering Facility: [facility] Address: [address] [place] [address] Performed By: #### 2 4323-8 ####[facility] LABCLIA [id number] [place] [address] CO2 [Moles/Vol] 26 mmol/L Normal 22-30 [facility] Comment on above: Order Comment: Speci men Type: BLOOD SPECIMENOrdering Facility: [facility] Address: [address] [place] [address] Performed By: #### 2 4323-8 ####[facility] LABCLIA [id number] [place] [address] Creatinine [Mass/Vol] 0.98 mg/dL High 0.58-0.96 [facility] Comment on above: Order Comment: Speci men Type: BLOOD SPECIMENOrdering Facility: [facility] Address: [address] [place] [address] Performed By: #### 2 4323-8 ####[facility] LABCLIA [id number] [place] [address] ESTIMATED GLOMERULAR FILTRATION RATE 56 mL/min/1.73m??? Low >=60 [facility] Comment on above: Order Comment: Speci men Type: BLOOD SPECIMENOrdering Facility: [facility] Address: [address] [place] [phone] Result Comment: Kala mated Glomerular Filtration Rate [...] actual GFR. Performed By: #### 2 4323-8 ####[facility] LABCLIA [id number] [place] [address] Glucose [Mass/Vol] 86 mg/dL Normal 74-99 [facility] Comment on above: Order Comment: Nesha parikh Type: BLOOD SPECIMENOrdering Facility: [facility] Address: [address] [place] [address] Result Comment: The [place] [employer] (ADA) provides guidance for cutoff [...] Standards of Medical Care in Diabetes 2016, [place] [employer]. Diabetes Care. 2016.39(Suppl 1). Performed By: #### 2 4323-8 ####[facility] LABIA [id number] [place] [address] Potassium [Moles/Vol] 4.4 mmol/L Normal 3.7-5.1 [facility] Comment on above: Order Comment: Nesha parikh Type: BLOOD SPECIMENOrdering Facility: [facility] Address: [address] [place] [phone] Performed By: #### 2 4323-8 ####[facility] LABCLIA [id number] [place] [address] Protein [Mass/Vol] 6.9 g/dL Normal 6.3-8.0 [facility] Comment on above: Order Comment: Speci men Type: BLOOD SPECIMENOrdering Facility: [facility] Address: [address] [place] [address] Performed By: #### 2 4323-8 ####[facility] LABCLIA [id number] [place] [address] Sodium [Moles/Vol] 136 mmol/L Normal 136-144 [facility] Comment on above: Order Comment: Speci men Type: BLOOD SPECIMENOrdering Facility: [facility] Address: [address] [place] [address] Performed By: #### 2 4323-8 ####[facility] LABCLIA [id number] [place] [address] Urea nitrogen [Mass/Vol] 18 mg/dL Normal 7-21 [facility] Comment on above: Order Comment: Speci men Type: BLOOD SPECIMENOrdering Facility: [facility] Address: [address] [place] [address] Performed By: #### 2 4323-8 ####[facility] LABCLIA [id number] [place] [address] Albumin [Mass/Vol] 4.6 g/dL 3.9 - 4.9 g/dL [facility] ALP [Catalytic activity/Vol] 42 U/L 34 - 123 U/L [facility] ALT [Catalytic activity/Vol] 12 U/L 7 - 38 U/L [facility] Anion gap [Moles/Vol] 8 mmol/L Low 9 - 18 mmol/L [facility] AST [Catalytic activity/Vol] 24 U/L 13 - 35 U/L [facility] Bilirubin [Mass/Vol] 0.3 mg/dL 0.2 - 1 .3 mg/dL [facility] Calcium [Mass/Vol] 9.5 mg/dL 8.5 - 10. 2 mg/dL [facility] Chloride [Moles/Vol] 102 mmol/L 97 - 10 5 mmol/L [facility] CO2 [Moles/Vol] 26 mmol/L 22 - 30 mmol/L [facility] Creatinine [Mass/Vol] 0.98 mg/dL High 0.58 - 0.96 mg/dL [facility] Estimated Glomerular Filtration Rate 56 mL/min/1.73m Low >=60 mL/min/1.73m [facility] Glucose [Mass/Vol] 86 mg/dL 74 - 99 mg/dL [facility] Potassium [Moles/Vol] 4.4 mmol/L 3.7 - 5.1 mmol/L [facility] Protein [Mass/Vol] 6.9 g/dL 6.3 - 8.0 g/dL [facility] Sodium [Moles/Vol] 136 mmol/L 136 - 144 mmol/L [facility] Urea nitrogen [Mass/Vol] 18 mg/dL 7 - 21 mg/dL [facility] FERRITIN BLDon 06-14-2021 Ferritin [Mass/Vol] 14.3 ng/mL Low 14.7-205.1 [facility] Comment on above: Order Comment: Speci men Type: BLOOD SPECIMENOrdering Facility: [facility] Address: [address] [place] [address] Performed By: #### F ERR, IRON ####[facility] LABIA [id number] [place] [address] [place] IRON + TIBCon 06-14-2021 Iron [Mass/Vol] 16 ug/dL Low 41-186 [facility] Comment on above: Order Comment: Speci men Type: BLOOD SPECIMENOrdering Facility: [facility] Address: [address] [place] [address] Performed By: #### F ERR, IRON ####[facility] LABCLIA [id number] [place] [address] [place] Iron binding capacity [Mass/Vol] 438 ug/dL High 232-386 [facility] Comment on above: Order Comment: Speci men Type: BLOOD SPECIMENOrdering Facility: [facility] Address: [address] [place], [place] [address] Performed By: #### F ERR, IRON ####[facility] LABCLIA [id number] [address] STATES OF [facility] Iron/TIBC [Molar ratio] 4 % Low 15-57 [facility] Comment on above: Order Comment: Speci men Type: BLOOD SPECIMENOrdering Facility: [facility] Address: [address] [place], [place] [address] Performed By: #### F ERR, IRON ####[facility] LABCLIA [id number] [address] [place] RETIC COUNTon 06-14-2021 Reticulocytes (Bld) [#/Vol] 0.05368 10*3/uL 0.018 - 0.100 M/uL [facility] Retics #on 06-14-2021 Reticulocytes (Bld) [#/Vol] 0.77338 10*3/uL Normal 0.018-0.100 [facility] Comment on above: Order Comment: Speci men Type: BLOOD SPECIMENOrdering Facility: [facility] Address: [address] [place], [place] [address] Performed By: #### 1 4196-0, 32149-3 ####[facility] LABCLIA [id number] [place] [address] Reticulocytes (Bld) [#/Vol]o n 06-14-2021 Reticulocytes/100 RBC (Bld) 1.3 % Normal 0.4-2.0 [facility] Comment on above: Order Comment: Speci men Type: BLOOD SPECIMENOrdering Facility: [facility] Address: [address] [place], [place] [address] Performed By: #### 1 4196-0, 20888-6 ####[facility] LABCLIA [id number] [place] [address] Reticulocytes/100 RBC (Bld) 1.3 % 0.4 - 2.0 % [facility] Vital Signs Date Time Vital Sign Value Performing Clinician Facility 09-10-2023 14:30-0400 Body height 140.97 cm [facility] 09-10-2023 14:30-0400 Body mass index (BMI) [Ratio] 22.8 kg/m2 [facility] 09-10-2023 14:30-0400 Body weight 45.52 kg [facility] 09-10-2023 14:30-0400 Diastolic blood pressure 79 mm[Hg] [facility] 09-10-2023 14:30-0400 Heart rate 70 /min [facility] 09-10-2023 14:30-0400 Respiratory rate 12 /min [facility] 09-10-2023 14:30-0400 Systolic blood pressure 133 mm[Hg] [facility] 08-09-2023 15:17-0400 Body height 140.97 cm DO Erik Ball Work Phone: [facility] 08-09-2023 15:17-0400 Body mass index (BMI) [Ratio] 22.8 kg/m2 DO Erik Ball Work Phone: [facility] 08-09-2023 15:17-0400 Body weight 45.35 kg DO Erik Ball Work Phone: [facility] 06-18-2023 13:23-0400 Body height 140.97 cm DO Erik Ball Work Phone: [facility] 06-18-2023 13:23-0400 Body mass index (BMI) [Ratio] 22.9 kg/m2 DO Erik Ball Work Phone: [facility] 06-18-2023 13:23-0400 Body weight 45.58 kg DO Erik Ball Work Phone: [facility] 06-18-2023 13:23-0400 Diastolic blood pressure 90 mm[Hg] DO Erik Ball Work Phone: [facility] 06-18-2023 13:23-0400 Heart rate 69 /min DO Erik Ball Work Phone: [facility] 06-18-2023 13:23-0400 Respiratory rate 12 /min DO Erik Ball Work Phone: [facility] 06-18-2023 13:23-0400 Systolic blood pressure 152 mm[Hg] DO Erik Ball Work Phone: [facility] 05-18-2023 10:10-0400 Body height 140.97 cm DO Erik Ball Work Phone: [facility] 05-18-2023 10:10-0400 Body mass index (BMI) [Ratio] 23 kg/m2 DO Erik Ball Work Phone: [facility] 05-18-2023 10:10-0400 Body weight 45.81 kg DO Erik Ball Work Phone: [facility] 05-18-2023 10:10-0400 Diastolic blood pressure 87 mm[Hg] DO Erik Ball Work Phone: [facility] 05-18-2023 10:10-0400 Heart rate 73 /min DO Erik Ball Work Phone: [facility] 05-18-2023 10:10-0400 Respiratory rate 12 /min DO Erik Ball Work Phone: [facility] 05-18-2023 10:10-0400 Systolic blood pressure 134 mm[Hg] DO Erik Ball Work Phone: [facility] 05-11-2023 13:50-0500 Body height 140.97 cm DO Erik Ball Work Phone: [facility] 05-11-2023 13:50-0500 Body mass index (BMI) [Ratio] 23.3 kg/m2 DO Erik Ball Work Phone: [facility] 05-11-2023 13:50-0500 Body weight 46.26 kg DO Erik Ball Work Phone: [facility] 05-11-2023 13:50-0500 Diastolic blood pressure 84 mm[Hg] DO Erik Ball Work Phone: [facility] 05-11-2023 13:50-0500 Systolic blood pressure 122 mm[Hg] DO Erik Ball Work Phone: [facility] 02-19-2023 13:30-0500 Body height 140.97 cm Erik Ball Other [employer] Other 02-19-2023 13:30-0500 Body mass index (BMI) [Ratio] 23.42 kg/m2 Erik Ball Other [employer] Other 02-19-2023 13:30-0500 Body weight 46.54 kg Erik Ball Other [employer] Other 02-19-2023 13:30-0500 Diastolic blood pressure 84 mm[Hg] Erik Ball Other [employer] Other 02-19-2023 13:30-0500 Respiratory rate 12 /min Erik Ball Other [employer] Other 02-19-2023 13:30-0500 Systolic blood pressure 130 mm[Hg] Erik Ball Other [employer] Other 01-31-2023 14:15-0500 Body height 140.97 cm Erik Ball Other [employer] Other 01-31-2023 14:15-0500 Body mass index (BMI) [Ratio] 23.14 kg/m2 Erik Ball Other [employer] Other 01-31-2023 14:15-0500 Body weight 46 kg Erik Ball Other [employer] Other 01-31-2023 14:15-0500 Diastolic blood pressure 92 mm[Hg] Erik Ball Other [employer] Other 01-31-2023 14:15-0500 Respiratory rate 12 /min Erik Ball Other [employer] Other 01-31-2023 14:15-0500 Systolic blood pressure 150 mm[Hg] Erik Ball Other [employer] Other 10-30-2022 14:30-0400 Body height 140.97 cm Erik Ball Other [employer] Other 10-30-2022 14:30-0400 Body mass index (BMI) [Ratio] 23.64 kg/m2 Erik Ball Other [employer] Other 10-30-2022 14:30-0400 Body weight 46.99 kg Erik Ball Other [employer] Other 10-30-2022 14:30-0400 Diastolic blood pressure 77 mm[Hg] Erik Ball Other [employer] Other 10-30-2022 14:30-0400 Respiratory rate 12 /min Erik Ball Other [employer] Other 10-30-2022 14:30-0400 Systolic blood pressure 122 mm[Hg] Erik Ball Other [employer] Other 08-30-2022 11:45-0400 Body height 140.97 cm Erik Ball Other [employer] Other 08-30-2022 11:45-0400 Body mass index (BMI) [Ratio] 22.91 kg/m2 Erik Ball Other [employer] Other 08-30-2022 11:45-0400 Body weight 45.54 kg Erik Ball Other [employer] Other 08-30-2022 11:45-0400 Diastolic blood pressure 88 mm[Hg] Erik Ball Other [employer] Other 08-30-2022 11:45-0400 Respiratory rate 12 /min Erik Ball Other [employer] Other 08-30-2022 11:45-0400 Systolic blood pressure 135 mm[Hg] Erik Ball Other [employer] Other 05-12-2022 13:30-0500 Body height 140.97 cm Erik Ball Other [employer] Other 05-12-2022 13:30-0500 Body mass index (BMI) [Ratio] 23.96 kg/m2 Erik Ball Other [employer] Other 05-12-2022 13:30-0500 Body weight 47.63 kg Erik Ball Other [employer] Other 05-12-2022 13:30-0500 Diastolic blood pressure 73 mm[Hg] Erik Ball Other [employer] Other 05-12-2022 13:30-0500 Systolic blood pressure 132 mm[Hg] Erik Ball Other [employer] Other 11-16-2021 10:58-0400 Body height 151.1 cm Fiorella Lisa PA-C Work Phone: [facility] 11-16-2021 10:58-0400 Body temperature 97.81 [degF] Fiorella Lisa PA-C Work Phone: [facility] 11-16-2021 10:58-0400 Body weight 48.99 kg Fiorella Lisa PA-C Work Phone: [facility] 11-16-2021 10:58-0400 Diastolic blood pressure 86 mm[Hg] Fiorella Lisa PA-C Work Phone: [facility] 11-16-2021 10:58-0400 Heart rate 74 /min Fiorella Lisa PA-C Work Phone: [facility] 11-16-2021 10:58-0400 Respiratory rate 16 /min Fiorella Lisa PA-C Work Phone: [facility] 11-16-2021 10:58-0400 SaO2% (BldA) [Mass fraction] 99 % Fiorella Lisa PA-C Work Phone: [facility] 11-16-2021 10:58-0400 Systolic blood pressure 143 mm[Hg] Fiorella Lsia PA-C Work Phone: [facility] 09-26-2021 13:25-0400 Body height 151.1 cm Binh Hernandez MD Work Phone: [facility] 09-26-2021 13:25-0400 Body temperature 97.9 [degF] Binh Hernanedz MD Work Phone: [facility] 09-26-2021 13:25-0400 Body weight 49.44 kg Binh Hernandez MD Work Phone: [facility] 09-26-2021 13:25-0400 Diastolic blood pressure 65 mm[Hg] Binh Hernandez MD Work Phone: [facility] 09-26-2021 13:25-0400 Heart rate 64 /min Binh Hernandez MD Work Phone: [facility] 09-26-2021 13:25-0400 Respiratory rate 16 /min Binh Hernandez MD Work Phone: [facility] 09-26-2021 13:25-0400 SaO2% (BldA) [Mass fraction] 99 % Binh Hernandez MD Work Phone: [facility] 09-26-2021 13:25-0400 Systolic blood pressure 134 mm[Hg] Binh Hernandez MD Work Phone: [facility] 08-22-2021 11:00-0400 Body temperature 96.69 [degF] Chair Nichols Work Phone: [facility] 08-22-2021 11:00-0400 Diastolic blood pressure 58 mm[Hg] Chair Nichols Work Phone: [facility] 08-22-2021 11:00-0400 Heart rate 70 /min Chair Nichols Work Phone: [facility] 08-22-2021 11:00-0400 Respiratory rate 18 /min Chair Nichols Work Phone: [facility] 08-22-2021 11:00-0400 SaO2% (BldA) [Mass fraction] 98 % Chair Nichols Work Phone: [facility] 08-22-2021 11:00-0400 Systolic blood pressure 116 mm[Hg] Chair Nichols Work Phone: [facility] 08-08-2021 13:29-0400 Diastolic blood pressure 75 mm[Hg] Chair Samuel Work Phone: [facility] 08-08-2021 13:29-0400 Heart rate 69 /min Chair Nichols Work Phone: [facility] 08-08-2021 13:29-0400 Respiratory rate 18 /min Chair Nichols Work Phone: [facility] 08-08-2021 13:29-0400 SaO2% (BldA) [Mass fraction] 98 % Chair Samuel Work Phone: [facility] 08-08-2021 13:29-0400 Systolic blood pressure 120 mm[Hg] Chair Samuel Work Phone: [facility] 08-08-2021 11:00-0400 Body temperature 97.5 [degF] Chair Samuel Work Phone: [facility] 07-26-2021 12:59-0400 Body height 151.1 cm Binh Hernandez MD Work Phone: [facility] 07-26-2021 12:59-0400 Body temperature 97.3 [degF] Binh Hernandez MD Work Phone: [facility] 07-26-2021 12:59-0400 Body weight 49.35 kg Binh Hernandez MD Work Phone: [facility] 07-26-2021 12:59-0400 Diastolic blood pressure 82 mm[Hg] Binh Hernandez MD Work Phone: [facility] 07-26-2021 12:59-0400 Heart rate 64 /min Binh Hernandez MD Work Phone: [facility] 07-26-2021 12:59-0400 Respiratory rate 16 /min Binh Hernandez MD Work Phone: [facility] 07-26-2021 12:59-0400 SaO2% (BldA) [Mass fraction] 99 % Binh Hernandez MD Work Phone: [facility] 07-26-2021 12:59-0400 Systolic blood pressure 113 mm[Hg] Binh Hernandez MD Work Phone: [facility] 06-14-2021 11:22-0400 Body height 151.1 cm Binh Hernandez MD Work Phone: [facility] 06-14-2021 11:22-0400 Body temperature 97 [degF] Binh Hernandez MD Work Phone: [facility] 06-14-2021 11:22-0400 Body weight 48.08 kg Binh Hernandez MD Work Phone: [facility] 06-14-2021 11:22-0400 Diastolic blood pressure 69 mm[Hg] Binh Hernandez MD Work Phone: [facility] 06-14-2021 11:22-0400 Heart rate 71 /min Binh Hernandez MD Work Phone: [facility] 06-14-2021 11:22-0400 Respiratory rate 16 /min Binh Hernandez MD Work Phone: [facility] 06-14-2021 11:22-0400 SaO2% (BldA) [Mass fraction] 90 % Binh Hernandez MD Work Phone: [facility] 06-14-2021 11:22-0400 Systolic blood pressure 126 mm[Hg] Binh Hernandez MD Work Phone: [facility] Encounters Encounter Date Encounter Type Care Provider Facility Start: 09-10-2023 End: 09-10-2023 ambulatory [facility] Work Phone: Start: 09-10-2023 End: 09-10-2023 Patient encounter procedure [facility] Work Phone: Start: 09-03-2023 Non-patient / Non-visit [facility] Work Phone: Start: 08-09-2023 End: 08-09-2023 ambulatory DO Erik Ball Work Phone: [facility] Work Phone: Start: 08-09-2023 End: 08-09-2023 Patient encounter procedure DO Erik Ball Work Phone: [facility] Work Phone: Start: 06-18-2023 End: 06-18-2023 ambulatory DO Erik Ball Work Phone: [facility] Work Phone: Start: 06-18-2023 End: 06-18-2023 Patient encounter procedure DO Erik Ball Work Phone: [facility] Work Phone: Start: 05-18-2023 End: 05-18-2023 ambulatory DO Erik Ball Work Phone: [facility] Work Phone: Start: 05-18-2023 End: 05-18-2023 Patient encounter procedure DO Erik Zimmerman Work Phone: [facility] Work Phone: Start: 05-11-2023 End: 05-11-2023 ambulatory Erik Zimmerman Facility:[facility] Start: 05-11-2023 End: 05-11-2023 Patient encounter procedure DO Erik Zimmerman Work Phone: [facility] Work Phone: Start: 04-18-2023 Non-patient / Non-visit DO Florian Zimmerman Work Phone: [facility] Work Phone: Start: 03-28-2023 End: 03-28-2023 ambulatory Erik Zimmerman Other [employer] Other Start: 03-28-2023 Telephone encounter Erik Ball [facility] Start: 02-21-2023 End: 02-21-2023 ambulatory Erik Zimmerman Other [employer] Other Start: 02-21-2023 Telephone encounter Erik Zimmerman [facility] Start: 02-19-2023 End: 02-19-2023 ambulatory Erik Zimmerman Other [employer] Other Start: 02-19-2023 Patient encounter procedure Erik Zimmerman [facility] Start: 02-02-2023 End: 02-02-2023 ambulatory Erik Ball Other [employer] Other Start: 02-02-2023 Telephone encounter Erik Ball [facility] Start: 01-31-2023 End: 01-31-2023 ambulatory Erik Ball Other [employer] Other Start: 01-31-2023 Office outpatient vi sit 15 minutes Erik Zimmerman [facility] Start: 01-31-2023 Telephone encounter Erik Zimmerman [facility] Start: 10-31-2022 End: 10-31-2022 ambulatory Erik Zimmerman Other [employer] Other Start: 10-31-2022 Telephone encounter Erik Zimmerman [facility] Start: 10-30-2022 End: 10-30-2022 ambulatory Erik Zimmerman Other [employer] Other Start: 10-30-2022 Office outpatient vi sit 15 minutes Erik Zimmerman [facility] Start: 09-13-2022 End: 09-13-2022 ambulatory Erik Zimmerman Other [employer] Other Start: 09-13-2022 Telephone encounter Erik Zimmerman [facility] Start: 08-30-2022 End: 08-30-2022 ambulatory Erik Zimmerman Other [employer] Other Start: 08-30-2022 Office outpatient vi sit 25 minutes Erik Zimmerman [facility] Start: 08-14-2022 End: 08-15-2022 ambulatory Trudy Bridges MD Facility: [facility] Start: 08-08-[address] [facility] Start: 07-21-2022 End: 07-22-[address] ERIK ZIMMERMAN Facility:[facility] Start: 06-28-2022 End: 06-28-2022 ambulatory Erik Zimmerman Other [employer] Other Start: 06-28-2022 Telephone encounter Erik Zimmerman [facility] Start: 05-17-2022 End: 05-17-2022 ambulatory Erik Zimmerman Other [employer] Other Start: 05-17-2022 Telephone encounter Erik Zimmerman [facility] Start: 05-16-2022 End: 05-17-[address] ERIK ZIMMERMAN Facility:[facility] Start: 05-12-2022 End: 05-12-2022 ambulatory Erik Zimmerman Other [employer] Other Start: 05-12-2022 Office outpatient vi sit 15 minutes Erik Zimmerman [facility] Start: 03-31-2022 End: 03-31-2022 ambulatory Erik Zimmerman Other [employer] Other Start: 03-31-2022 Telephone encounter Erik Zimmerman [facility] Start: 03-20-2022 End: 03-20-[address] [...] encounter procedure Binh Hernandez MD Work Phone: [facility] Start: 07-18-2021 Telephone encounter Charisma Henderson RN Hematology/Oncology Comment on above: Results; Appointment Start: 07-12-2021 End: 07-13-[address] ERIK ZIMMERMAN Facility: Start: 06-29-2021 End: 06-29-2021 ambulatory ERIK ZIMMERMAN Facility:[facility] Start: 06-24-2021 Telephone encounter Charisma Henderson RN Hematology/Oncology Comment on above: Appointment Start: 06-16-2021 Telephone encounter [facility] Work Phone: [facility] Comment on above: Medication Follow-up (Monoferric not covered - switched plan to Venfoer 300mg x3 weekly doses) Start: 06-14-2021 Telephone encounter Binh Hernandez MD Work Phone: [facility] Comment on above: Future Appointment Start: 06-14-2021 End: 06-14-2021 ambulatory Binh Hernandez MD Work Phone: Hematology/Oncology Comment on above: 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) Start: 06-14-2021 End: 06-14-2021 Patient encounter procedure Binh Hernandez MD Work Phone: [facility] Plan of Treatment Date Care Activity Detail Author Start: 11-16-2024 DIABETES SCREEN DIABETES SCREEN [facility] Start: 06-14-2024 DIABETES SCREEN DIABETES SCREEN [facility] Start: 05-11-2023 EKG 12 channel panel [facility] Start: 11-16-2021 End: 01-16-2022 Ferritin [Mass/volume] in Serum or Plasma [facility] Work Phone: Comment on above: Expected: 11/16/2021 , Expires: 01/16/2022 Start: 11-16-2021 End: 01-16-2022 Iron and Iron binding capacity panel - Serum or Plasma [facility] Work Phone: Comment on above: Expected: 11/16/2021 , Expires: 01/16/2022 Start: 11-07-2021 End: 01-07-2022 CBC W Auto Differential panel - Blood CBC + DIFF Lab Routine Iron deficiency anemia due to chronic blood loss Expected: 11/07/2021 (Approximate), Expires: 01/07/2022 [facility] Work Phone: Comment on above: Expected: 11/07/2021 (Approximate), Expires: 01/07/2022 Start: 11-07-2021 End: 01-07-2022 Ferritin [Mass/volume] in Serum or Plasma FERRITIN BLD Lab Routine Iron deficiency anemia due to chronic blood loss Expected: 11/07/2021 (Approximate), Expires: 01/07/2022 [facility] Work Phone: Comment on above: Expected: 11/07/2021 (Approximate), Expires: 01/07/2022 Start: 11-07-2021 End: 01-07-2022 Iron and Iron binding capacity panel - Serum or Plasma IRON + TIBC Lab Routine Iron deficiency anemia due to chronic blood loss Expected: 11/07/2021 (Approximate), Expires: 01/07/2022 [facility] Work Phone: Comment on above: Expected: 11/07/2021 (Approximate), Expires: 01/07/2022 Start: 11-03-2021 Influenza vaccination INFLUENZA (#1) [facility] Start: 09-26-2021 End: 11-26-2021 Ferritin [Mass/volume] in Serum or Plasma [facility] Work Phone: Comment on above: Expected: 09/26/2021 , Expires: 11/26/2021 Start: 09-26-2021 End: 11-26-2021 Iron and Iron binding capacity panel - Serum or Plasma [facility] Work Phone: Comment on above: Expected: 09/26/2021 , Expires: 11/26/2021 Start: 07-26-2021 End: 09-25-2021 CBC W Auto Differential panel - Blood CBC + DIFF Lab Routine Iron deficiency anemia due to chronic blood loss Expected: 07/26/2021 (Approximate), Expires: 09/25/2021 [facility] Work Phone: Comment on above: Expected: 07/26/2021 (Approximate), Expires: 09/25/2021 Start: 07-26-2021 End: 09-25-2021 FERRITIN BLD FERRITIN BLD Lab Routine Iron deficiency anemia due to chronic blood loss Expected: 07/26/2021 (Approximate), Expires: 09/25/2021 [facility] Work Phone: Comment on above: Expected: 07/26/2021 (Approximate), Expires: 09/25/2021 Start: 07-26-2021 End: 09-25-2021 IRON + TIBC IRON + TIBC Lab Routine Iron deficiency anemia due to chronic blood loss Expected: 07/26/2021 (Approximate), Expires: 09/25/2021 [facility] Work Phone: Comment on above: Expected: 07/26/2021 (Approximate), Expires: 09/25/2021 Start: 06-13-2021 End: 08-13-2021 FERRITIN BLD FERRITIN BLD Lab Routine Iron deficiency anemia due to chronic blood loss Expected: 06/13/2021, Expires: 08/13/2021 [facility] Work Phone: Comment on above: Expected: 06/13/2021 , Expires: 08/13/2021 Start: 06-13-2021 End: 08-13-2021 IRON + TIBC IRON + TIBC Lab Routine Iron deficiency anemia due to chronic blood loss Expected: 06/13/2021, Expires: 08/13/2021 [facility] Work Phone: Comment on above: Expected: 06/13/2021 , Expires: 08/13/2021 Start: 03-05-2021 ADVANCE DIRECTIVE DISCUSSION ADVANCE DIRECTIVE DISCUSSION [facility] Start: 1998 BONE DENSITY BONE DENSITY [facility] Start: 1998 PNEUMOCOCCAL: 65+ (1 - PCV) PNEUMOCOCCAL: 65+ (1 - PCV) [facility] Start: 1998 PNEUMOVAX AGE 65 AND OVER WITH 5YR LOOKBACK (#1) PNEUMOVAX AGE 65 AND OVER WITH 5YR LOOKBACK (#1) [facility] Start: 11-19-1983 SHINGRIX VACCINE (1 of 2) SHINGRIX VACCINE (1 of 2) [facility] Start: 1952 Urine microalbumin profile DTAP,TDAP,TD (1 - Tdap) [facility] Bacteria identified in Urine by Culture [facility] FERRITIN BLD FERRITIN BLD Lab Routine Iron deficiency anemia due to chronic blood loss 06/14/2021 11:00 AM EDT [facility] Work Phone: IRON + TIBC IRON + TIBC Lab Routine Iron deficiency anemia due to chronic blood loss 06/14/2021 11:00 AM EDT [facility] Work Phone: US.doppler Carotid arteries - bilateral [facility] Immunizations Immunization Date Immunization Notes Care Provider Jon ring 08-09-2023 tetanus toxoid, reduced diphtheria toxoid, and acellular pertussis vaccine, adsorbed DO Erik Zimmerman Work Phone: [facility] 12-21-2022 COVID-19 (PFIZER) 12Y and older DO Erik Zimmerman Work Phone: [facility] 11-25-2022 Influenza vaccine, quadrivalent, adjuvanted DO Erik Zimmerman Work Phone: [facility] 11-25-2022 influenza virus vaccine, unspecified formulation DO Erik Zimmerman Work Phone: [facility] 11-25-2022 influenza, high dose seasonal, preservative-free Erik Zimmerman Other [facility] [employer] Other 04-10-2022 zoster vaccine recombinant DO Erik Zimmerman Work Phone: [facility] 01-11-2022 COVID-19 mRNA Bivale nt Booster (Pfizer) DO Erik Zimmerman Work Phone: [facility] 12-13-2021 Seasonal trivalent influenza vaccine, adjuvanted, preservative free DO Erik Zimmerman Work Phone: [facility] 08-31-2021 Prevnar 20 Erik Zimmerman Other [facility] 06-27-2021 COVID-19 vaccine, ag e 12+ yr (Nvigen-BIONTECH - [facility]) Binh Hernandez MD Work Phone: [facility] 12-04-2020 influenza virus vaccine, split virus (incl. purified surface antigen) Erik Zimmerman Other [facility] [employer] Other 12-04-2020 influenza virus vaccine, unspecified formulation DO Erik Zimmerman Work Phone: [facility] 12-04-2020 Seasonal trivalent influenza vaccine, adjuvanted, preservative free Binh Hernandez MD Work Phone: [facility] 11-29-2020 COVID-19 vaccine, ag e 12+ yr ([employer] - [facility]) Binh Hernandez MD Work Phone: [facility] 04-24-2020 COVID-19 vaccine, ag e 12+ yr (PFIZER-BIONTECH - [employer]) Binh Hernandez MD Work Phone: [facility] 04-03-2020 COVID-19 vaccine, ag e 12+ yr ([employer] - [facility]) Binh Hernandez MD Work Phone: [facility] 11-24-2019 influenza virus vaccine, split virus (incl. purified surface antigen) Erik Zimmerman Other [facility] [employer] Other 11-24-2019 influenza virus vaccine, unspecified formulation DO Erik Zimmerman Work Phone: [facility] 11-24-2019 Seasonal trivalent influenza vaccine, adjuvanted, preservative free Binh Hernandez MD Work Phone: [facility] 01-14-2019 influenza virus vaccine, split virus (incl. purified surface antigen) Erik Zimmerman Other [facility] [employer] Other 01-14-2019 influenza virus vaccine, unspecified formulation DO Erik Zimmerman Work Phone: [facility] 12-25-2017 Seasonal trivalent influenza vaccine, adjuvanted, preservative free Binh Hernandez MD Work Phone: [facility] 12-12-2017 influenza virus vaccine, split virus (incl. purified surface antigen) Erik Zimmerman Other [facility] [employer] Other 12-12-2017 influenza virus vaccine, unspecified formulation DO Erik Zimmerman Work Phone: [facility] 12-22-2016 influenza virus vaccine, split virus (incl. purified surface antigen) Erik Zimmerman Other [facility] [employer] Other 12-22-2016 influenza virus vaccine, unspecified formulation DO Erik Zimmerman Work Phone: [facility] 12-22-2016 influenza, high dose seasonal, preservative-free Binh Hernandez MD Work Phone: [facility] 12-13-2015 influenza virus vaccine, split virus (incl. purified surface antigen) Erik Zimmerman Other [facility] [employer] Other 12-13-2015 influenza virus vaccine, unspecified formulation DO Erik Zimmerman Work Phone: [facility] 12-13-2015 influenza, high dose seasonal, preservative-free Binh Hernandez MD Work Phone: [facility] 01-04-2015 pneumococcal conjuga te vaccine, 13 valent Erik Zimmerman Other [facility] 12-03-2014 influenza virus vaccine, split virus (incl. purified surface antigen) Erik Zimmerman Other [employer] Other 12-03-2014 influenza virus vaccine, unspecified formulation DO Erik Zimmerman Work Phone: [facility] 12-10-2013 tetanus and diphther ia toxoids, adsorbed, preservative free, for adult use (5 Lf of tetanus toxoid and 2 Lf of diphtheria toxoid) Erik Zimmerman Other [facility] 12-26-2012 influenza, seasonal, injectable Binh Hernandez MD Work Phone: [facility] 12-17-2012 tetanus and diphther ia toxoids, adsorbed, preservative free, for adult use (5 Lf of tetanus toxoid and 2 Lf of diphtheria toxoid) Erik Zimmerman Other [facility] Payers Date Payer Category Payer Self-pay 2023 Unknown [id number] 2019 Private Health Insurance [employer] A ETNA MEDICARE SUPPLEMENT [id number] 2019-Present [phone] [address] [address] [place] [address] Indemnity [id number] 2019 Private Health Insurance [id number] 1998 Medicare MEDICARE MEDICAR E A AND B [id number] 1998-Present [phone] [address] [address] [place] [address] Medicare [id number] 1998 Medicare [id number] 1959 Medicare [id number] 1959 Medicare [id number] 1933 Unknown [id number] [id number]. 2.59 1933 Unknown [id number] [id number]. 2.593 1933 Unknown [id number] 2.16.840.1.385275.3.579. 2.593 1933 Unknown [id number] 2.16.840.1.707819.3.579. 2.593 1933 Unknown [id number] [id number]. 2.593 1933 Unknown [id number] 2.16.840.1.502610.3.579. 2.593 1933 Unknown [id number] 2.16.840.1.578465.3.579. 2.593 1933 Unknown [id number] 2.16.840.1.975612.3.579. 2.593 1933 Unknown [id number] 2.16.840.1.609853.3.579. 2.593 1933 Unknown [id number] 2.16.840.1.266959.3.579. 2.593 1933 Unknown [id number] 2.16.840.1.455790.3.579. 2.593 1933 Unknown [id number] 2.16.840.1.363846.3.579. 2.196 1933 Unknown [id number] [id number]. 2.196 Private Health Insurance [employer] [id number] Unknown [id number] Unknown [id number]. 2.531 Social History Date Type Detail Facility Start: 11-25-2013 End: 08-09-2023 Tobacco smoking status NHIS Never smoked tobacco [facility] Start: 06-14-2021 End: 11-16-2021 Alcohol intake Current drinker of alcohol (finding) [facility] Start: 11-25-2013 History SDOH Alcohol Comment wine daily [facility] Start: 1935 Sex Assigned At Not on file C [facility] Start: 06-04-2021 End: 11-16-2021 Exposure to SARS-CoV-2 (event) Not sure [facility] Start: 11-16-2021 Tobacco use and exposure Smokeless tobacco non-user [facility] Sex Assigned At Sex Assigned At [facility] [employer] Other Start: 1935 Sex Assigned At Female F [facility] Clinical Notes 06-14-2021 to 03-28-2023 Note Date & Type Note Facility 03-28-2023 Evaluation note Encounter Date Diagnosis Assessment Notes Mar, Vitamin D deficiency (ICD-10 - E55.9) Mar, Age-related osteoporosis with current pathological fracture with routine healing, subsequent encounter (ICD-10 - M80.00XD) [place] [employer] Other [id number] Evaluation note* Encounter Date Diagnosis Assessment Notes [...] in bowel habits No melena or hematochezia [employer] Other 11-29-2023 Evaluation note* Encounter Date Diagnosis [...] goal < 135/85 _update in couple days [employer] Other 11-29-2023 Evaluation note* Encounter Date Diagnosis Assessment Notes Treatment Notes Treatment Clinical Notes Jan, Chest wall pain (ICD-10 - R07.89) [employer] [facility] [employer] [facility] 08-28-2023 Evaluation note* Encounter Date Diagnosis [...] and may have experienced an adverse reaction [employer] [facility] 06-28-2023 Evaluation note* Encounter Date Diagnosis [...] anxiety contributes. 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 Checking B12, Fe, and Thyroid studies Aug, Anemia in other chronic diseases classified elsewhere (ICD-10 - D63.8) Hx of anemia of unknown etiology. Fe transiently low and replaced w/ IV Fe infusion. Recent Hgb have been normal. No obvious s/s bleeding [employer] [facility] 04-26-2023 Evaluation note* Encounter Date Diagnosis Assessment Notes Treatment Notes Treatment Clinical Notes Jun, Kyphoscoliosis deformity of spine (ICD-10 - M41.9) Jun, Lumbar spondylosis (ICD-10 - M47.816) [employer] [facility] 03-10-2023 Evaluation note* Encounter Date Diagnosis [...] May, Other chronic pain (ICD-10 - G89.29) [employer] [facility] 09-15-2022 Miscellaneous Notes* Telephone Encounter - [...] labs to Dr. Zimmerman. documented [facility] Miscellaneous Notes* Telephone Encounter - Jewel [...] office. Fiorella Gonzalez PA-C documented in this encounterMer[facility]09-14-2022 NoteHNO ID: [id number] Author: Fiorella Gonzalez PA-C Service: ? Author Type: Physician Head Operator Type: Progress Notes Filed: 11/16/2021 11:43 AM [...] her again. Fiorella Gonzalez PA-C CC: [facility] History of Present illness Narrative* Fiorella [...] PA-C CC: Erik Zimmerman documented in this encounterMer[facility]07-25-2022 NoteHNO ID: [id number] Author: Binh Hernandez MD Service: ? Author [...] on labs today. She has seen Dr. Espaan who did not feel the need to do scopes. Repeat iron profile assessment in [address] Zimmerman's office, after which she will come back and see us. Binh Hernandez MD I spent a total of 15 minutes on the date of the service which included preparing to see the patient, [id number] patient care, completing clinical documentation, obtaining and/or reviewing separately obtained history, performing a medically appropriate examination, counseling and educating the patient/family/caregiver, ordering medications, tests, or procedures, independently interpreting results (not separately reported) and communicating results to the patient/family/caregiver. CC: [facility]ermanDet[facility]07-25-2022 History of Present illness Narrative* Binh [...] which included preparing to see the patient, [id number] patient care, completing clinical documentation, obtaining and/or reviewing separately obtained history, performing a medically appropriate examination, counseling and educating the pat ient/family/caregiver, ordering medications, tests, or procedures, independently interpreting results (not separately reported) and communicating results to the patient/family/caregiver. CC: Erik Zimmerman documented in this encounterMer[facility]06-20-2022 NoteHNO ID: [id number] Author: Angeles Moss RN Service: ? Author Type: Registered Nurse Type: Progress Notes Filed: 08/22/2021 1:19 PM Note Text: .[facility] History of Present illness Narrative* Angeles Moss RN - 08/22/2021 11:15 AM EDT . documented in this encounterMer[facility]05-24-2022 NoteHNO ID: [id number] Author: Binh Hernandez MD Service: ? Author [...] which included preparing to see the patient, [id number] patient care, completing clinical documentation, obtaining and/or reviewing separately obtained history, performing a medically appropriate examination, counseling and educating the patient/family/caregiver, ordering medications, tests, or procedures, independently interpreting results (not separately reported) and communicating results to the patient/family/caregiver. CC: Erik [facility]ermanDet[facility]05-24-2022 History of Present illness Narrative* Binh [...] which included preparing to see the patient, thkx-ph-[id number] patient care, completing clinical documentation, obtaining and/or reviewing separately obtained history, performing a medically appropriate examination, counseling and educating the pat ient/family/caregiver, ordering medications, tests, or procedures, independently interpreting results (not separately reported) and communicating results to the patient/family/caregiver. CC: Erik Zimmerman documented in this encounterMer[facility]05-16-2022 Miscellaneous Notes* Telephone Encounter - Sade Arndt - 07/18/2021 3:22 PM EDT Lab appt [...] you. Charisma Henderson RN documented in this encounterMer[facility]04-22-2022 Miscellaneous Notes* Telephone Encounter - Charisma [...] advise. Charisma Henderson RN documented in this encounterMer[facility]04-14-2022 Miscellaneous Notes* Telephone Encounter - Jovita Ghotra Pss - 06/16/2021 2:02 PM EDT Herrera Ramos spoke with [facility]. She states they have received patient records/referral and have patient scheduled to see Dr Espana on 09/01 @ 1:45. Jovita Ghotra Pss * Telephone Encounter - Devi Elian [facility] - 06/14/2021 1:14 PM EDT Records [...] your mailbox. Thank you documented in this encounterMercy [facility]04-12-2022 NoteHNO ID: [id number] Author: Binh Hernandez MD Service: ? Author [...] which included preparing to see the patient, [id number] patient care, completing clinical documentation, obtaining and/or reviewing separately obtained history, performing a medically appropriate examination, counseling and educating the patient/family/caregiver, ordering medications, tests, or procedures, independently interpreting results (not separately reported) and communicating results to the patient/family/caregiver. CC: Erik ZimmermanDetw[facility]04-12-2022 History of Present illness Narrative* Binh [...] which included preparing to see the patient, [id number] patient care, completing clinical documentation, obtaining and/or reviewing separately obtained history, performing a medically appropriate examination, counseling and educating the pat ient/family/caregiver, ordering medications, tests, or procedures, independently interpreting results (not separately reported) and communicating results to the patient/family/caregiver. CC: Erik Zimmerman [facility]* Diagnosis Iron deficiency anemia due to chronic blood loss- Primary Iron deficiency anemia secondary to blood loss (chronic) documented in this encounter [facility]* Diagnosis Iron deficiency anemia due to chronic blood loss- Primary Iron deficiency anemia secondary to blood loss (chronic) [facility] encounter [facility]* Diagnosis Iron deficiency anemia due to chronic blood loss- Primary Iron deficiency anemia secondary to blood loss (chronic) documented in this encounter [facility]* Diagnosis Iron deficiency anemia due to chronic blood loss- Primary Iron deficiency anemia secondary to blood loss (chronic) documented in this encounter [facility]* Diagnosis Iron deficiency anemia due to chronic blood loss- Primary Iron deficiency anemia secondary to blood loss (chronic) documented in this encounter [facility] noteNo [facility] [place] [employer] Other Evaluation note* Diagnosis Onset Date Resolution Status Essential hypertension acute CAREY (generalized anxiety disorder) acute Palpitation acute Cerumen impaction noneactive [facility] Work Phone: Evaluation note* Diagnosis Onset Date Resolution Status Essential hypertension acute CAREY (generalized anxiety disorder) acute Palpitation acute Cerumen impaction noneactive Occlusion of left carotid artery acute Palpitation acute Cerumen impaction noneactive Decreased hearing of both ears noneactive Essential hypertension acute CAREY (generalized anxiety disorder) acute Occlusion of left carotid artery acute Palpitation acute Fatigue noneactive Anemia noneactive [facility] Work Phone: Evaluation note* Diagnosis Onset [...] noneactive Dog bite of left lower leg a cute [facility] Work Phone: Evaluation note* Diagnosis Onset Date Resolution Status Essential hypertension acute CAREY (generalized anxiety disorder) acute Occlusion of left carotid artery acute Palpitation acute Fatigue noneactive Anemia noneactive Dog bite of left lower leg a cute Essential hypertension acute CAREY (generalized anxiety disorder) acute Occlusion of left carotid artery acute Palpitation acute Anemia noneactive [facility] Work Phone: History general Narrative - Reported* Type Description Date Surgical History appendectomy [employer] Other History general Narrative - Reported* Type [...] History CAROTID BYPASS Surgical History LEFT BUNIONECTOMY 2019 Hospitalization History SEE SURGICAL HX [employer] Other Reason for referral (narrative)* Reason Referral for pain ma nagement Diagnosis 1 Kyphoscoliosis defor mity of spine (M41.9) Diagnosis 2 Lumbar spondylosis ( M47.816) Referral Organization [facility] Referring Provider First Name Erik Referring Provider Last Name Obdulio Referring Provider Specialty Internal Me dicine Referred Organization [facility] Referred Provider Mirian Maldonado Referred Address [address], [place],[address] Referred Provider Specialty Pain Medicin e Referral Priority Routine General Notes 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 She has daily pain, moderate in intensity, which interferes with activities of daily living. Clinical Notes XR lumbar spine and B/L hips to be included w/ referral. [employer] Other Reason for Referral Specialty Diagnoses / Procedures Referred By Juanpablo damian Referred To Contact Gastroenterology Diagnoses Iron deficiency anemia due to chronic blood loss Procedures CONSULT TO GASTROENTEROLOGY OFFICE/OUTPATIENT [facility] 60-74 MINUTES Binh Hernandez MD [address] [place] [address] [place] [address] Referral ID Status Reason Start Date Expiration Date Visits Requested Visits Authorized [id number] Authorized PCP Requested Referral 06/14/2021 06/14/2022 1 [...] Unknown Not Specified Unknown sister Hypertension Unknown Relationship Condition Age at Onset Recorded Date/T malika father Unknown Hypertension Unknown Heart disease Unknown mother Unknown sister Hypertension Unknown Advance Directives Advance [...] Anemia Dog bite of left lower leg Chief Complaint 4 month follow up dog bite 3 month Reason for Visit Essential hypertensi on CAREY (generalized anxiety disorder) Occlusion of left carotid artery Palpitation Fatigue Anemia Dog bite of left lower leg Essential hypertension CAREY (generalized anxiety disorder) Occlusion of left carotid artery Palpitation Anemia Additional Source Comments Source Comments (unrecognize d section and content) In the event this informatio n is protected by the Federal Confidentiality of Alcohol and Drug Abuse Patient Records regulations: The Federal rules restrict any use of the information to criminally investigate or prosecute any alcohol or drug abuse patient.[facility] HospitalIn the event this information is protected by the Federal Confidentiality of Alcohol and Drug Abuse Patient Records regulations: The Federal rules restrict any use of the information to criminally investigate or prosecute any alcohol or drug abuse patient.[facility] HospitalIn the event this information is protected by the Federal Confidentiality of Alcohol and Drug Abuse Patient Records regulations: The Federal rules restrict any use of the information to criminally investigate or prosecute any alcohol or drug abuse patient.[facility] HospitalIn the event this information is protected by the Federal Confidentiality of Alcohol and Drug Abuse Patient Records regulations: The Federal rules restrict any use of the information to criminally investigate or prosecute any alcohol or drug abuse patient.[facility] HospitalIn the event this information is protected by the Federal Confidentiality of Alcohol and Drug Abuse Patient Records regulations: The Federal rules restrict any use of the information to criminally investigate or prosecute any alcohol or drug abuse patient.[facility] HospitalIn the event this information is protected by the Federal Confidentiality of Alcohol and Drug Abuse Patient Records regulations: The Federal rules restrict any use of the information to criminally investigate or prosecute any alcohol or drug abuse patient.[facility] HospitalIn the event this information is protected by the Federal Confidentiality of Alcohol and Drug Abuse Patient Records regulations: The Federal rules restrict any use of the information to criminally investigate or prosecute any alcohol or drug abuse patient.[facility] HospitalIn the event this information is protected by the Federal Confidentiality of Alcohol and Drug Abuse Patient Records regulations: The Federal rules restrict any use of the information to criminally investigate or prosecute any alcohol or drug abuse patient.[facility] HospitalIn the event this information is protected by the Federal Confidentiality of Alcohol and Drug Abuse Patient Records regulations: The Federal rules restrict any use of the information to criminally investigate or prosecute any alcohol or drug abuse patient.[facility] HospitalIn the event this information is protected by the Federal Confidentiality of Alcohol and Drug Abuse Patient Records regulations: The Federal rules restrict any use of the information to criminally investigate or prosecute any alcohol or drug abuse patient.[facility] HospitalIn the event this information is protected by the Federal Confidentiality of Alcohol and Drug Abuse Patient Records regulations: The Federal rules restrict any use of the information to criminally investigate or prosecute any alcohol or drug abuse patient.[facility] HospitalIn the event this information is protected by the Federal Confidentiality of Alcohol and Drug Abuse Patient Records regulations: The Federal rules restrict any use of the information to criminally investigate or prosecute any alcohol or drug abuse patient.[facility] Reason for Visit (unrecogniz ed section [...] INJECTION PER 1 MG Binh Hernandez MD [address] [place] [address] Fernando Treat [facility] [address] [place] [place] [address] Referral ID Status Reason Start Date Expiration Date V isits Requested Visits Authorized [id number] Authorized 06/15/2021 03/04/2022 99 99 Reason Comments [...] 2023 Team Status: Inactive Member Role Status Alba Zimmerman DO Primary Care Provide r, Attending Provider Active Start: June 18, 2023 End: June 18, 2023 Team Status: Inactive Member Role Status Dates Erik Zimmerman DO Primary Care Provider Active Start: August 09, 2023 End: August 09, 2023 Devi Mills APRN SILVERLIGHT DEVELOPER-C Attending Provider Act corinne Start: August 09, 2023 End: August 09, 2023 Basket Weaver Relationship Specialty Start Date End Date Erik Zimmerman DO PCP - General Internal Medicine 11/17/13 Basket Weaver Relationship Specialty Start Date End Date Erik Zimmerman, DO PCP - General Internal Medicine 11/17/13 Basket Weaver Relationship Specialty Start Date End Date Erik Zimmerman, DO PCP - General Internal Medicine 11/17/13 Basket Weaver Relationship Specialty Start Date End Date Erik Zimmerman, DO PCP - General Internal Medicine 11/17/13 Basket Weaver Relationship Specialty Start Date End Date Erik Zimmerman, DO PCP - General Internal Medicine 11/17/13 Basket Weaver Relationship Specialty Start Date End Date Erik Zimmerman, DO PCP - General Internal Medicine 11/17/13 Basket Weaver Relationship Specialty Start Date End Date Obdulio Erik Anderson, DO PCP - General Internal Medicine 11/17/13 Basket Weaver Relationship Specialty Start Date End Date Erik Zimmerman, DO PCP - General Internal Medicine 11/17/13 Basket Weaver Relationship Specialty Start Date End Date Erik Zimmerman, DO PCP - General Internal Medicine 11/17/13 Team Status: Active Member Role Status Dates Erik Zimmerman DO Primary Care Provide r, Attending Provider Active Start: April 18, 2023 Team Status: Active Member Role Status Dates Erik Zimmerman DO Primary Care Provide r, Attending Provider Active Start: September 03, 2023 Team Status: Inactive Member Role Status Dates Erik Zimmerman DO Primary Care Provide r, Attending Provider Active Start: September 10, 2023 End: September 10, 2023 INFORMATION SOURCE (unrecogn ized section and content) DATE CREATED AUTHOR 11/30/2021 [facility] DATE CREATED AUTHOR AUTHOR'S ORGANIZ ATION 07/12/2022 [facility] DATE CREATED AUTHOR AUTHOR'S ORGANIZ ATION 10/24/2022 [facility] DATE CREATED AUTHOR AUTHOR'S ORLY AC 05/12/2023 [facility] Goals (unrecognized section and content) Goals [...] BE BASED ON THE PRIMARY CLINICAL RECORDS. [facility]. provides no warranty or guarantee of the accuracy or completeness of information in this document.
[2023-10-25 09:43] LABS: Anion Gap 17.3; BUN Creatinine Ratio 24.2; Calcium 9.3 mg/dL (8.5-10.1); Carbon Dioxide 24.9 mmol/L (21.0-32.0); Chloride 100 mmol/L (98-107); Estimated GFR (African America >60 (>=60); Estimated GFR (Non-African Ame 53 (>=60); Glucose 90 mg/dL (74-106); Potassium 4.2 mmol/L (3.5-5.1); Sodium 138 mmol/L (136-145)
== END 2023-10-24 15:48 | disposition home or self-care (01) ==
LOC: LAB 15:47
PROVIDERS: PCP Internal Medicine; Visit Provider Internal Medicine
DX: M81.0 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 current pathological fracture (principal)
CPT/HCPCS: 36415; 80048; 82306

== ENCOUNTER 2023-10-28 20:52 | Emergency (ER) | payer MEDICARE, SELFPAY ==
[2023-10-28] VITALS (18 sets, daily range): BP systolic 126–163; BP diastolic 90–101; PULSE 60–83; TEMP 36.4; O2SAT 97; BMI 20.2
--- OUTSIDE RECORDS SUMMARY | 2023-10-28 20:59 | XMS_ITS | CCD ---
Author Organization [facility] CliniSywi Care Team Providers Care Etl Application Developer Name Role Phone Erik Zimmerman DO Primary [...] Care Provider Obdulio, DO [place] Attending Provider Allergies Allergy Classification Reported Allergen(s) Allergy Type Date of Onset Reaction(s) Facility (13 sources) predniSONE; Translations: [PREDNISONE] Drug Allergy 4 Other: See Comments [facility] (13 sources) Eye Drops Relief; Translations: [EYE DROPS RELIEF] Drug Allergy 4 Unknown [facility] (2 sources) predniSONE Drug Allergy 4 [facility] Repository Medications Current Medications Medication Drug Class(es) [...] Start: 10-19-2021 take 1 capsule by mo [facility] once daily Omeprazole 40 MG 1 [...] 09-08-2021 Episodic Other aftercare (1 source) Other prison (current) drug therapy; Translations: [OTH GROUP HOME CURRENT DRUG THERAPY] Onset: 09-21-2021 Episodic Other [...] challengeon 09-03-2023 Ferritin [Mass/Vol] 47.0 ng/mL 8.0-252.0 [facility] Automated urine specific gra vity by refractometryon 06-18-2023 Specific gravity Refractometry automated (U) [Rel density] 1.015 1.005-1.025 [facility] Basophils Auto (Bld) [#/Vol] on 06-18-2023 Basophils (Bld) [#/Vol] 0.1 10 3/uL 0.0-0.1 [facility] Basophils/100 WBC Auto (Bld) on 06-18-2023 Basophils/100 WBC (Bld) 1.1 % 0.2-2.0 [facility] Bilirubin Auto test strip (U ) [Mass/Vol]on 06-18-2023 Bilirubin (U) [Mass/Vol] Negative NEGATIVE [facility] Color Auto (U)on 06-18-2023 Color (U) LT. YELLOW YELLOW [facility] Eosinophils/100 WBC Auto (Bl d)on 06-18-2023 Eosinophils/100 WBC (Bld) 4.4 % 0.9-7.0 [facility] Erythrocyte distribution wid th Auto (RBC) [Ratio]on 06-18-2023 Erythrocyte distribution width (RBC) [Ratio] 13.2 % 11.0-15.0 [facility] Glucose [Mass/volume] in Uri ne by Test stripon 06-18-2023 Glucose Test strip (U) [Mass/Vol] Negative NEGATIVE [facility] Hematocrit Auto (Bld) [Volum e fraction]on 06-18-2023 Hematocrit (Bld) [Volume fraction] 43.8 % 36.0-48.0 [facility] Hemoglobin [Mass/volume] in Bloodon 06-18-2023 Hemoglobin (Bld) [Mass/Vol] 13.4 g/dL 12.0-16.0 [facility] Iron binding capacity [Mass/ volume] in Serum or Plasmaon 06-18-2023 Iron binding capacity [Mass/Vol] 405.0 ug/dL 250.0-450.0 [facility] Iron saturation [Mass Fracti on] in Serum or Plasmaon 06-18-2023 Iron saturation [Mass fraction] 9.4 % [facility] Ketones Auto test strip (U) [Mass/Vol]on 06-18-2023 Ketones (U) [Mass/Vol] Negative NEGATIVE [facility] Laboratory - Chemistry and C hemistry - challengeon 06-18-2023 Iron [Mass/Vol] 38.0 ug/dL Low 50.0-170.0 [facility] TSH Qn 0.901 m[IU]/L 0.358-3.740 [facility] Cobalamin (Vitamin B12) [Mass/Vol] 334.0 pg/mL 193.0-986.0 [facility] Ferritin [Mass/Vol] 49.0 ng/mL 8.0-252.0 [facility] Laboratory - Hematology and Cell countson 06-18-2023 Immature granulocytes/100 WBC (Bld) 0.4 % 0.0-0.5 [facility] Leukocytes [#/volume] correc adarsh for nucleated erythrocytes in Blood by Automated counon 06-18-2023 WBC corrected for nucl RBC Auto (Bld) [#/Vol] 5.7 10 3/uL 4.0-11.0 [facility] Lymphocytes Auto (Bld) [#/Vo l]on 06-18-2023 Lymphocytes (Bld) [#/Vol] 1.5 10 3/uL 1.2-3.8 [facility] Lymphocytes/100 WBC Auto (Bl d)on 06-18-2023 Lymphocytes/100 WBC (Bld) 26.2 % 20.5-60.0 [facility] MCH Auto (RBC) [Entitic mass ]on 06-18-2023 MCH (RBC) [Entitic mass] 28.3 pg 26.7-34.0 [facility] MCHC Auto (RBC) [Mass/Vol]on 06-18-2023 MCHC (RBC) [Mass/Vol] 30.6 g/dL 29.9-35.2 [facility] MCV Auto (RBC) [Entitic vol] on 06-18-2023 MCV (RBC) [Entitic vol] 92.6 fL 81.0-99.0 [facility] Monocytes Auto (Bld) [#/Vol] on 06-18-2023 Monocytes (Bld) [#/Vol] 0.5 10 3/uL 0.3-0.8 [facility] Monocytes/100 WBC Auto (Bld) on 06-18-2023 Monocytes/100 WBC (Bld) 9.4 % 1.7-12.0 [facility] Neutrophils Auto (Bld) [#/Vo l]on 06-18-2023 Neutrophils (Bld) [#/Vol] 3.3 10 3/uL 1.4-6.5 [facility] Neutrophils/100 WBC Auto (Bl d)on 06-18-2023 Neutrophils/100 WBC (Bld) 58.5 % 43.0-75.0 [facility] No Panel Informationon 06-17 Eosinophils # (Auto) 0.3 10 3/uL 0.0-0.7 [facility] Immature Granulocyte # (Auto) 0.02 10 3/uL 0.00-0.03 [facility] Folate 20.20 ng/mL 8.60-58.90 [facility] Platelet mean volume Auto (B ld) [Entitic vol]on 06-18-2023 Platelet mean volume (Bld) [Entitic vol] 10.3 fL 9.5-13.5 [facility] Platelets Auto (Bld) [#/Vol] on 06-18-2023 Platelets (Bld) [#/Vol] 189 10 3/uL 150-450 [facility] Protein Auto test strip (U) [Mass/Vol]on 06-18-2023 Protein (U) [Mass/Vol] 30 mg/dL Abnormal NEG/TRACE [facility] RBC Auto (Bld) [#/Vol]on RBC (Bld) [#/Vol] 4.73 10 6/uL 4.20-5.40 [facility] Specific gravity Auto test s trip (U) [Rel density]on 06-18-2023 Specific gravity (U) [Rel density] CLEAR CLEAR [facility] Urine hemoglobin detection b y automated test stripon 06-18-2023 Hemoglobin Auto test strip Ql (U) TRACE-I NEGATIVE [facility] Urine nitrite detection by a utomated test stripon 06-18-2023 Nitrite Auto test strip Ql (U) Negative NEGATIVE [facility] Urobilinogen Auto test strip (U) [Mass/Vol]on 06-18-2023 Urobilinogen Qn (U) 0.2 {Dank'U}/dL 0.2-1.0 [facility] pH Auto test strip (U)on pH (U) 7.5 [pH] 5.0-9.0 [facility] Estimated glomerular filtrat ion rate (GFR) non- Americanon 04-18-2023 GFR/1.73 sq M.predicted among non-blacks MDRD (S/P/Bld) [Vol rate/Area] 57 mL/min/{1.73_m2} >=60 [facility] Laboratory - Chemistry and C hemistry - challengeon 04-18-2023 Calcium [Mass/Vol] 9.0 mg/dL 8.5-10.1 [facility] Chloride [Moles/Vol] 105 mmol/L 98-107 [facility] CO2 [Moles/Vol] 28.0 mmol/L 21.0-32.0 [facility] Creatinine [Mass/Vol] 0.93 mg/dL 0.55-1.02 [facility] GFR/1.73 sq M.predicted MDRD (S/P/Bld) [Vol rate/Area] mL/min/{1.73_m2} >=60 [facility] Glucose [Mass/Vol] 87 mg/dL 74-106 [facility] Potassium [Moles/Vol] 4.0 mmol/L 3.5-5.1 [facility] Sodium [Moles/Vol] 141 mmol/L 136-145 [facility] Urea nitrogen [Mass/Vol] 19.0 mg/dL 7.0-18.0 [facility] Urea nitrogen/Creatinine [Mass ratio] 20.4 mg/mg [facility] No Panel Informationon 04-18 25-Hydroxy Vitamin D Total 38.2 ng/mL [facility] Comment on above: <20 ng/mL Vit D defi cient20-<30 ng/mL Vit D dgcgqhfyqkwa24-751 ng/mL Vit D sufficient>100 ng/mL Potential Toxicity Serum or plasma anion gap de terminationon 04-18-2023 Anion gap [Moles/Vol] 12.0 mmol/L [facility] Basic Metabolic Panelon 02-02 Anion gap [Moles/Vol] 10.9 mmol/L [employer] Other Calcium [Mass/Vol] 8.1772266 mg/dL Normal 8.5-10 .1 mg/dL [facility] [employer] Other Chloride [Moles/Vol] 102 mmol/L Normal 98-107 mmol/L [facility] [employer] Other CO2 [Moles/Vol] 28.30451588 mmol/L Normal 21.0-3 2.0 mmol/L [facility] [employer] Other Creatinine [Mass/Vol] 1.10773152 mg/dL High 0.55-1.02 mg/dL [facility] [employer] Other Glucose [Mass/Vol] 101 mg/dL Normal 74-106 mg/dL [facility] [employer] Other Potassium [Moles/Vol] 3.62812401 mmol/L Normal 3.5-5.1 mmol/L [facility] [employer] Other Sodium [Moles/Vol] 138 mmol/L Normal 136-145 mmol/L [facility] [employer] Other Urea nitrogen [Mass/Vol] 16.4613800 mg/dL Normal 7.0-18.0 mg/dL [facility] [employer] Other Urea nitrogen/Creatinine [Mass ratio] 14.7 mg/mg [facility] [employer] Other Basic Metabolic Panel see note [facility] [employer] Other Basic Metabolic Panel 47 Low >=60 [facility] [employer] Other Basic Metabolic Panel 57 Low >=60 [facility] [employer] Other FERRITINon 02-20-2023 Ferritin [Mass/Vol] 31.8079930 ng/mL Normal 8.0- 252.0 ng/mL [facility] [employer] Other XR HIPS VALERIY 5V W PELVISon [...] DE DIOS Date: 2022-05-16 11:52 Normal [facility] CBC AUTO DIFFon 03-06-2022 BASO # 0.0 103/ul Normal 0.0-0.1 [facility] Comment on above: Performed By: #### C BC ####[facility] [address] [place] [id number]. Devorah James Basophils/100 WBC (Bld) 0.7 % Normal 0.2-2.0 [facility] Comment on above: Performed By: #### C BC ####[facility] [address] [place], [place] [address]Cl. Devorah James EO # 0.2 103/ul Normal 0.0-0.7 [facility] Comment on above: Performed By: #### C BC ####[facility] [address] [place], [place] [address]Kn. Devorah James Eosinophils/100 WBC (Bld) 3.7 % Normal 0.9-7.0 [facility] Comment on above: Performed By: #### C BC ####[facility] [address] [place] [address]Dr. Devorah James Erythrocyte distribution width (RBC) [Ratio] 12.8 % Normal 11.0-15.0 [facility] Comment on above: Performed By: #### C BC ####[facility] [address] [place], [place] [address]Dr. Devorah James Hematocrit (Bld) [Volume fraction] 41.5 % Normal 36.0-48.0 [facility] Comment on above: Performed By: #### C BC ####[facility] [address] [place], [place] [address]Dr. Devorah James Hemoglobin (Bld) [Mass/Vol] 13.3 g/dL Normal 12.0-16.0 [facility] Comment on above: Performed By: #### C BC ####[facility] [address] [place], [place] [address]Dr. Devorah James IG # 0.01 10e3/ul Normal 0.00-0.03 [facility] Comment on above: Performed By: #### C BC ####[facility] [address] [place], [place] [address]Dr. Devorah James IG % 0.2 % Normal 0.0-0.5 [facility] Comment on above: Performed By: #### C BC ####[facility] [address] [place], [place] [address]Dr. Devorah James LYMPH # 1.1 103/ul Critically low 1.2-3.8 [facility] Comment on above: Performed By: #### C BC ####[facility] K[address] [place], [place] [address]Dr. Devorah James Lymphocytes/100 WBC (Bld) 18.2 % Critically low 20.5-60.0 [facility] Comment on above: Performed By: #### C BC ####[facility] [address] [place], [place] [address]Dr. Devorah Jacob MANUAL DIFF REQ NO Normal [facility] Comment on above: Performed By: #### C BC ####[facility] [address] [place] [id number]. Devorah Jacob MCH (RBC) [Entitic mass] 29.1 pg Normal 26.7-34.0 [facility] Comment on above: Performed By: #### C BC ####[facility] [address] [place] [address]Dr. Devorah James MCHC (RBC) [Mass/Vol] 32.0 g/dL Normal 29.9-35.2 [facility] Comment on above: Performed By: #### C BC ####[facility] Locsc[address] [place], [place] [address]Dr. Devorah James MCV (RBC) [Entitic vol] 90.8 fL Normal 81.0-99.0 [facility] Comment on above: Performed By: #### C BC ####[facility] [address] [place], [place] [address]Dr. Devorah James MONO # 0.6 103/ul Normal 0.3-0.8 [facility] Comment on above: Performed By: #### C BC ####[facility] [address] [place], [place] [address]Dr. Devorah James Monocytes/100 WBC (Bld) 10.0 % Normal 1.7-12.0 [facility] Comment on above: Performed By: #### C BC ####[facility] [address] [place], [place] [address]DrDarvin James NEUT # 4.0 103/ul Normal 1.4-6.5 [facility] Comment on above: Performed By: #### C BC ####[facility] [address] [place], [place] [address]DrDarvin James Neutrophils/100 WBC (Bld) 67.2 % Normal 43.0-75.0 [facility] Comment on above: Performed By: #### C BC ####[facility] Q[address]so[address] [place], [place] [address]DrDarvin James Platelet mean volume (Bld) [Entitic vol] 10.1 fL Normal 9.5-13.5 [facility] Comment on above: Performed By: #### C BC ####[facility] [address] [place] [address]DrDarvin James PLT 183 103/ul Normal 150-450 [facility] Comment on above: Performed By: #### C BC ####[facility] [address] [place] [address]DrDarvin James RBC 4.57 106/ul Normal 4.20-5.40 [facility] Comment on above: Performed By: #### C BC ####[facility] [address] [place] [address]DrDarvin James WBC 6.0 103/ul Normal 4.0-11.0 [facility] Comment on above: Performed By: #### C BC ####[facility] [address] [place] [address]Dr. Devorah James FERRITINon 03-06-2022 Ferritin [Mass/Vol] 44.0 ng/mL Normal 8.0-252.0 [facility] Comment on above: Performed By: #### F ERR, VITAD #### [facility] Laboratory [address] [place] [address] [address] Devorah James PROF CHEM 8 (BAS METB)on Anion gap [Moles/Vol] 11.8 mmol/L Normal [facility] Comment on above: Performed By: #### B MP ####[facility] [address] [place] [address]Dr. Devorah James Calcium [Mass/Vol] 8.8 mg/dL Normal 8.5-10.1 [facility] Comment on above: Performed By: #### B MP ####[facility] [address] [place] [address]Dr. Devorah James Chloride [Moles/Vol] 102 mmol/L Normal 98-107 [facility] Comment on above: Performed By: #### B MP ####[facility] [address] [place] [address]Dr. Devorah James CO2 [Moles/Vol] 27.7 mmol/L Normal 21.0-32.0 [facility] Comment on above: Performed By: #### B MP ####[facility] [address] [place] [address]Dr. Devorah James Creatinine [Mass/Vol] 0.84 mg/dL Normal 0.55-1.02 [facility] Comment on above: Performed By: #### B MP ####[facility] [address] [place] [address]Dr. Devorah Jacob EGFR-AF CAMEROONIAN >60 Normal >=60 [facility] Comment on above: Performed By: #### B MP ####[facility] [address] [place], [place] [address]Dr. Devorah Jacob EGFR-NON AF CAMEROONIAN >60 Normal >=60 [facility] Comment on above: Performed By: #### B MP ####[facility] [address] [place], [place] [address]Dr. Devorah Jacob Glucose [Mass/Vol] 112 mg/dL Critically high 74-106 [facility] Comment on above: Performed By: #### B MP ####[facility] [address] [place], [place] [address]Dr. Devorah Jacob Potassium [Moles/Vol] 4.5 mmol/L Normal 3.5-5.1 [facility] Comment on above: Performed By: #### B MP ####[facility] [address] [place] [address]Dr. Elsycindy James Sodium [Moles/Vol] 137 mmol/L Normal 136-145 [facility] Comment on above: Performed By: #### B MP ####[facility] [address] [place] [address]Dr. Devorah Jacob Urea nitrogen [Mass/Vol] 15.0 mg/dL Normal 7.0-18.0 [facility] Comment on above: Performed By: #### B MP ####[facility] [address] [place] [address]Dr. Devorah James Urea nitrogen/Creatinine [Mass ratio] 17.9 mg/mg Normal [facility] Comment on above: Performed By: #### B MP ####[facility] [address] [place], [place] [address]Dr. Devorah James VITAMIN D 25 OHon 03-06-2022 VIT D 25-OH 47.3 ng/mL Normal [facility] Comment on above: Performed By: #### F ERR, VITAD #### [facility] Laboratory [address] [place], [place] [address] Dr. Devorah James VIT D RANGES SEE BELOW Normal [facility] Comment on above: Result Comment: <20 ng/mL Vit D deficient 20 - <30 ng/mL Vit D insufficient 30 - 100 ng/mL Vit D sufficient >100 ng/mL Potential Toxicity Performed By: #### F ERR, VITAD #### [facility] Laboratory [address] [place], [place] [address] Dr. Devorah James CNPNon 11-17-2021 CNPN Telephone (HEMTSA) NINA ESCALONA ([id number]) 1935 F Date Time Provider Department 11/17/21 [...] Status:Closed by JEWEL RICHARDSON on 11/17/21 Normal [facility] CBC W Auto Differential pane l (Bld)on 11-16-2021 Basophils (Bld) [#/Vol] 0.03 10*3/uL Normal <0.11 [facility] Comment on above: Order Comment: Speci men Type: BLOOD SPECIMENOrdering Facility: [facility] Address: [address] [place] [address] Performed By: #### 5 7021-8 ####[facility] LABCLIA [id number] [place] [address] Basophils/100 WBC (Bld) 0.6 % Normal [facility] Comment on above: Order Comment: Speci men Type: BLOOD SPECIMENOrdering Facility: [facility] Address: [address] [place] [address] Performed By: #### 5 7021-8 ####[facility] LABCLIA [id number] [place] [address] Differential cell count method Nom (Bld) Auto Normal [facility] Comment on above: Order Comment: Speci men Type: BLOOD SPECIMENOrdering Facility: [facility] Address: [address] [place] [address] Performed By: #### 5 7021-8 ####[facility] LABCLIA [id number] [place] [address] Eosinophils (Bld) [#/Vol] 0.10 10*3/uL Normal <0.46 [facility] Comment on above: Order Comment: Speci men Type: BLOOD SPECIMENOrdering Facility: [facility] Address: [address] [place] [address] Performed By: #### 5 7021-8 ####[facility] LABCLIA [id number] [place] [address] Eosinophils/100 WBC (Bld) 2.1 % Normal [facility] Comment on above: Order Comment: Speci men Type: BLOOD SPECIMENOrdering Facility: [facility] Address: [address] [place] [address] Performed By: #### 5 7021-8 ####[facility] LABCLIA [id number] [place] [address] Erythrocyte distribution width (RBC) [Ratio] 17.6 % High 11.5-15.0 [facility] Comment on above: Order Comment: Speci men Type: BLOOD SPECIMENOrdering Facility: [facility] Address: [address] [place] [address] Performed By: #### 5 7021-8 ####[facility] LABCLIA [id number] [place] [address] Hematocrit (Bld) [Volume fraction] 46.2 % High 36.0-46.0 [facility] Comment on above: Order Comment: Speci men Type: BLOOD SPECIMENOrdering Facility: [facility] Address: [address] [place] [address] Performed By: #### 5 7021-8 ####[facility] LABCLIA [id number] [place] [address] Hemoglobin (Bld) [Mass/Vol] 14.5 g/dL Normal 11.5-15.5 [facility] Comment on above: Order Comment: Speci men Type: BLOOD SPECIMENOrdering Facility: [facility] Address: [address] [place] [address] Performed By: #### 5 7021-8 ####[facility] LABIA [id number] [place] [address] IMMATURE GRAN % 0.2 % Normal [facility] Comment on above: Order Comment: Speci men Type: BLOOD SPECIMENOrdering Facility: [facility] Address: [address] [place] [address] Performed By: #### 5 7021-8 ####[facility] LABCLIA [id number] [place] [address] IMMATURE GRAN ABS <0.03 Normal <0.10 [facility] Comment on above: Order Comment: Speci men Type: BLOOD SPECIMENOrdering Facility: [facility] Address: [address] [place] [address] Performed By: #### 5 7021-8 ####[facility] LABCLIA [id number] [place] [address] Lymphocytes (Bld) [#/Vol] 1.01 10*3/uL Normal 1.00-4.00 [facility] Comment on above: Order Comment: Speci men Type: BLOOD SPECIMENOrdering Facility: [facility] Address: [address] [place] [address] Performed By: #### 5 7021-8 ####[facility] LABCLIA [id number] [place] [address] Lymphocytes/100 WBC (Bld) 21.7 % Normal [facility] Comment on above: Order Comment: Speci men Type: BLOOD SPECIMENOrdering Facility: [facility] Address: [address] [place] [address] Performed By: #### 5 7021-8 ####[facility] LABCLIA [id number] [place] [address] MCH (RBC) [Entitic mass] 27.4 pg Normal 26.0-34.0 [facility] Comment on above: Order Comment: Speci men Type: BLOOD SPECIMENOrdering Facility: [facility] Address: [address] [place] [address] Performed By: #### 5 7021-8 ####[facility] LABCLIA [id number] [place] [address] MCHC (RBC) [Mass/Vol] 31.4 g/dL Normal 30.5-36.0 [facility] Comment on above: Order Comment: Speci men Type: BLOOD SPECIMENOrdering Facility: [facility] Address: [address] [place] [address] Performed By: #### 5 7021-8 ####[facility] LABCLIA [id number] [place] [address] MCV (RBC) [Entitic vol] 87.2 fL Normal 80.0-100.0 [facility] Comment on above: Order Comment: Speci men Type: BLOOD SPECIMENOrdering Facility: [facility] Address: [address] [place] [address] Performed By: #### 5 7021-8 ####[facility] LABCLIA [id number] [place] [address] Monocytes (Bld) [#/Vol] 0.43 10*3/uL Normal <0.87 [facility] Comment on above: Order Comment: Speci men Type: BLOOD SPECIMENOrdering Facility: [facility] Address: [address] [place] [address] Performed By: #### 5 7021-8 ####[facility] LABCLIA [id number] [place] [address] Monocytes/100 WBC (Bld) 9.2 % Normal [facility] Comment on above: Order Comment: Speci men Type: BLOOD SPECIMENOrdering Facility: [facility] Address: [address] [place] [address] Performed By: #### 5 7021-8 ####[facility] LABCLIA [id number] [place] [address] Neutrophils (Bld) [#/Vol] 3.08 10*3/uL Normal 1.45-7.50 [facility] Comment on above: Order Comment: Speci men Type: BLOOD SPECIMENOrdering Facility: [facility] Address: [address] [place] [address] Performed By: #### 5 7021-8 ####[facility] LABCLIA [id number] [place] [address] Neutrophils/100 WBC (Bld) 66.2 % Normal [facility] Comment on above: Order Comment: Speci men Type: BLOOD SPECIMENOrdering Facility: [facility] Address: [address] [place] [address] Performed By: #### 5 7021-8 ####[facility] LABIA [id number] [place] [address] Nucleated RBC (Bld) [#/Vol] 10*3/uL Normal <0.01 [facility] Comment on above: Order Comment: Speci men Type: BLOOD SPECIMENOrdering Facility: [facility] Address: [address] [place], [place] [address] Performed By: #### 5 7021-8 ####[facility] LABCLIA [id number] [place] [address] Nucleated RBC/100 WBC (Bld) [Ratio] 0.0 /100 WBC Normal [facility] Comment on above: Order Comment: Speci men Type: BLOOD SPECIMENOrdering Facility: [facility] Address: [address] [place], [place] [address] Performed By: #### 5 7021-8 ####[facility] LABCLIA [id number] [place] [address] Platelet mean volume (Bld) [Entitic vol] 9.5 fL Normal 9.0-12.7 [facility] Comment on above: Order Comment: Speci men Type: BLOOD SPECIMENOrdering Facility: [facility] Address: [address] [place] [address] Performed By: #### 5 7021-8 ####[facility] LABIA [id number] [place] [address] Platelets (Bld) [#/Vol] 190 10*3/uL Normal 150-400 [facility] Comment on above: Order Comment: Speci men Type: BLOOD SPECIMENOrdering Facility: [facility] Address: [address] [place], [place] [address] Performed By: #### 5 7021-8 ####[facility] LABCLIA [id number] [place] [address] RBC (Bld) [#/Vol] 5.30 10*6/uL High 3.90-5.20 [facility] Comment on above: Order Comment: Speci men Type: BLOOD SPECIMENOrdering Facility: [facility] Address: [address] [place] [address] Performed By: #### 5 7021-8 ####[facility] LABCLIA [id number] [place] [address] WBC (Bld) [#/Vol] 4.66 10*3/uL Normal 3.70-11.00 [facility] Comment on above: Order Comment: Speci men Type: BLOOD SPECIMENOrdering Facility: [facility] Address: [address] [place] [address] Performed By: #### 5 7021-8 ####[facility] LABCLIA [id number] [place] [address] Abs Immature Gran <0.10 k/uL [facility] Basophils (Bld) [#/Vol] 0.03 10*3/uL <0.11 k/uL [facility] Basophils/100 WBC (Bld) 0.6 % [facility] Differential cell count method Nom (Bld) Auto [facility] Eosinophils (Bld) [#/Vol] 0.10 10*3/uL <0.46 k/uL [facility] Eosinophils/100 WBC (Bld) 2.1 % [facility] Erythrocyte distribution width (RBC) [Ratio] 17.6 % High 11.5 - 15.0 % [facility] Hematocrit (Bld) [Volume fraction] 46.2 % High 36.0 - 46.0 % [facility] ic Hemoglobin (Bld) [Mass/Vol] 14.5 g/dL 11.5 - 15.5 g/dL [facility] Immature Gran % 0.2 % [facility] Lymphocytes (Bld) [#/Vol] 1.01 10*3/uL 1.00 - 4.00 k/uL [facility] Lymphocytes/100 WBC (Bld) 21.7 % [facility] MCH (RBC) [Entitic mass] 27.4 pg 26.0 - 34.0 pg [facility] MCHC (RBC) [Mass/Vol] 31.4 g/dL 30.5 - 36.0 g/dL [facility] MCV (RBC) [Entitic vol] 87.2 fL 80.0 - 100.0 fL [facility] Monocytes (Bld) [#/Vol] 0.43 10*3/uL <0.87 k/uL [facility] Monocytes/100 WBC (Bld) 9.2 % [facility] Neutrophils (Bld) [#/Vol] 3.08 10*3/uL 1.45 - 7.50 k/uL [facility] Neutrophils/100 WBC (Bld) 66.2 % [facility] Nucleated RBC (Bld) [#/Vol] <0.01 k/uL [facility] Nucleated RBC/100 WBC (Bld) [Ratio] 0.0 /100 WBC [facility] ic Platelet mean volume (Bld) [Entitic vol] 9.5 fL 9.0 - 12.7 fL [facility] Platelets (Bld) [#/Vol] 190 10*3/uL 150 - 400 k/uL [facility] RBC (Bld) [#/Vol] 5.30 10*6/uL High 3.90 - 5.2 0 m/uL [facility] WBC (Bld) [#/Vol] 4.66 10*3/uL 3.70 - 11. 00 k/uL [facility] CNOVSPon 11-16-2021 CNOVSP Visit (SP) Office ([place]) NINA ESCALONA ([id number]) 1935 F Date Time Provider Department 11/16/21 [...] CC: Erik Zimmerman Referring Provider: BINH HERNANDEZ [[id number]] Allergies As of Date: 11/16/2021 Noted Allergy Reaction EYE DROPS RELIEF 11/25/2013 16 - Unknown Comments: Glaucoma eye drops PREDNISONE 11/25/2013 14 - Other: See Comments Comments: Palpitations, sob Date Reviewed: 11/16/2021 Reviewed by: Fiorella Gonzalez PA-C - Fully Assessed Reason for Visit: Anemia [6] Primary Visit Diagnosis:Iron deficiency anemia due to chronic blood loss [D50.0] Order(s):COMP METABOLIC PANEL [SQCMP] Order #: [id number] FUTURE IRON + TIBC [SQIRON] Order #: [id number] FUTURE CBC + DIFF [SQCBCDIF] Order #: [id number] FUTURE FERRITIN BLD [SQFERR] Order #: [id number] FUTURE Disposition: Return today (on 11/16/2021), or if symptoms worsen or fail to improve. Follow-up and Disposition History for Encounter Date Provider Department Center 11/16/2021 [id number], MINDY M [facility] Prescriptions as of 11/16/2021 - aspirin [...] as neede (more content not included)... Normal [facility] CNPNon 11-16-2021 CNPN Telephone (HE[place]AS[place]) NINA ESCALONA ([id number]) 1935 F Date Time Provider Department 11/16/21 FIORELLA GONZALEZ During your visit today, we recorded the following information about you: Fiorella Gonzalez PA-C 11/16/2021 11:27 AM Signed Please send a copy of today's labs to Dr. Zimmerman's office. DEE oHlbrook RN 11/16/2021 1:19 PM Signed ----- Message [...] Status:Closed by MANFRED KELLY on 11/16/21 Normal [facility] Comprehensive metabolic 2000 panelon 11-16-2021 Albumin [Mass/Vol] 4.4 g/dL Normal 3.9-4.9 [facility] Comment on above: Order Comment: Speci men Type: BLOOD SPECIMENOrdering Facility: [facility] Address: [address] [place] [address] Performed By: #### 2 4323-8 ####[facility] LABCLIA [id number] [place] [address] ALP [Catalytic activity/Vol] 45 U/L Normal 34-123 [facility] Comment on above: Order Comment: Speci men Type: BLOOD SPECIMENOrdering Facility: [facility] Address: [address] [place] [address] Performed By: #### 2 4323-8 ####[facility] LABCLIA [id number] [place] [address] ALT [Catalytic activity/Vol] 11 U/L Normal 7-38 [facility] Comment on above: Order Comment: Speci men Type: BLOOD SPECIMENOrdering Facility: [facility] Address: [address] [place] [address] Performed By: #### 2 4323-8 ####[facility] LABCLIA [id number] [place] [address] Anion gap [Moles/Vol] 7 mmol/L Low 9-18 [facility] Comment on above: Order Comment: Speci men Type: BLOOD SPECIMENOrdering Facility: [facility] Address: [address] [place] [address] Performed By: #### 2 4323-8 ####[facility] LABCLIA [id number] [place] [address] AST [Catalytic activity/Vol] 22 U/L Normal 13-35 [facility] Comment on above: Order Comment: Speci men Type: BLOOD SPECIMENOrdering Facility: [facility] Address: [address] [place] [address] Performed By: #### 2 4323-8 ####[facility] LABCLIA [id number] [place] [address] Bilirubin [Mass/Vol] 0.4 mg/dL Normal 0.2-1.3 [facility] Comment on above: Order Comment: Speci men Type: BLOOD SPECIMENOrdering Facility: [facility] Address: [address] [place] [address] Performed By: #### 2 4323-8 ####[facility] LABCLIA [id number] [place] [address] Calcium [Mass/Vol] 9.7 mg/dL Normal 8.5-10.2 [facility] Comment on above: Order Comment: Speci men Type: BLOOD SPECIMENOrdering Facility: [facility] Address: [address] [place] [address] Performed By: #### 2 4323-8 ####[facility] LABCLIA [id number] [place] [address] Chloride [Moles/Vol] 102 mmol/L Normal 97-105 [facility] Comment on above: Order Comment: Speci men Type: BLOOD SPECIMENOrdering Facility: [facility] Address: [address] [place] [address] Performed By: #### 2 4323-8 ####[facility] LABCLIA [id number] [place] [address] CO2 [Moles/Vol] 29 mmol/L Normal 22-30 [facility] Comment on above: Order Comment: Speci men Type: BLOOD SPECIMENOrdering Facility: [facility] Address: [address] [place] [address] Performed By: #### 2 4323-8 ####[facility] LABCLIA [id number] [place] [address] Creatinine [Mass/Vol] 0.85 mg/dL Normal 0.58-0.96 [facility] Comment on above: Order Comment: Speci men Type: BLOOD SPECIMENOrdering Facility: [facility] Address: [address] [place] [address] Performed By: #### 2 4323-8 ####[facility] LABCLIA [id number] [place] [address] ESTIMATED GLOMERULAR FILTRATION RATE 66 mL/min/1.73m??? Normal >=60 [facility] Comment on above: Order Comment: Speci men Type: BLOOD SPECIMENOrdering Facility: [facility] Address: [address] [place] [address] Result Comment: Kala mated Glomerular Filtration Rate [...] actual GFR. Performed By: #### 2 4323-8 ####[facility] LABCLIA [id number] [place] [address] Glucose [Mass/Vol] 60 mg/dL Low 74-99 [facility] Comment on above: Order Comment: Speci men Type: BLOOD SPECIMENOrdering Facility: [facility] Address: [address] [place] [address] Result Comment: The [place] Diabetes Association (ADA) provides guidance for cutoff [...] Standards of Medical Care in Diabetes 2016, [place] Diabetes Association. Diabetes Care. 2016.39(Suppl 1). Performed By: #### 2 4323-8 ####[facility] LABCLIA [id number] [place] [address] Potassium [Moles/Vol] 5.1 mmol/L Normal 3.7-5.1 [facility] Comment on above: Order Comment: Yamileti men Type: BLOOD SPECIMENOrdering Facility: [facility] Address: [address] [place], [place] [address] Performed By: #### 2 4323-8 ####[facility] LABCLIA [id number] [place] [address] Protein [Mass/Vol] 6.8 g/dL Normal 6.3-8.0 [facility] Comment on above: Order Comment: Speci men Type: BLOOD SPECIMENOrdering Facility: [facility] Address: [address] [place] [address] Performed By: #### 2 4323-8 ####[facility] LABCLIA [id number] [place] [address] Sodium [Moles/Vol] 138 mmol/L Normal 136-144 [facility] Comment on above: Order Comment: Speci men Type: BLOOD SPECIMENOrdering Facility: [facility] Address: [address] [place] [address] Performed By: #### 2 4323-8 ####[facility] LABCLIA [id number] [place] [address] Urea nitrogen [Mass/Vol] 14 mg/dL Normal 7-21 [facility] Comment on above: Order Comment: Speci men Type: BLOOD SPECIMENOrdering Facility: [facility] Address: [address] [place] [address] Performed By: #### 2 4323-8 ####[facility] LABCLIA [id number] [place] [address] Albumin [Mass/Vol] 4.4 g/dL 3.9 - 4.9 g/dL [facility] ALP [Catalytic activity/Vol] 45 U/L 34 - 123 U/L [facility] ALT [Catalytic activity/Vol] 11 U/L 7 - 38 U/L [facility] Anion gap [Moles/Vol] 7 mmol/L Low 9 - 18 mmol/L [facility] AST [Catalytic activity/Vol] 22 U/L 13 - 35 U/L [facility] Bilirubin [Mass/Vol] 0.4 mg/dL 0.2 - 1 .3 mg/dL [facility] Calcium [Mass/Vol] 9.7 mg/dL 8.5 - 10. 2 mg/dL [facility] Chloride [Moles/Vol] 102 mmol/L 97 - 10 5 mmol/L [facility] CO2 [Moles/Vol] 29 mmol/L 22 - 30 mmol/L [facility] Creatinine [Mass/Vol] 0.85 mg/dL 0.58 - 0.96 mg/dL [facility] Estimated Glomerular Filtration Rate 66 mL/min/1.73m >=60 mL/min/1.73m [facility] Glucose [Mass/Vol] 60 mg/dL Low 74 - 99 mg/dL [facility] Potassium [Moles/Vol] 5.1 mmol/L 3.7 - 5.1 mmol/L [facility] Protein [Mass/Vol] 6.8 g/dL 6.3 - 8.0 g/dL [facility] Sodium [Moles/Vol] 138 mmol/L 136 - 144 mmol/L [facility] Urea nitrogen [Mass/Vol] 14 mg/dL 7 - 21 mg/dL [facility] Ferritin SerPl-ncon 2021 Ferritin [Mass/Vol] 84.5 ng/mL Normal 14.7-205.1 [facility] Comment on above: Order Comment: Speci men Type: BLOOD SPECIMENOrdering Facility: [facility] Address: [address] [place] [address] Performed By: #### 2 276-4 ####[facility] [id number] [place] [address] [place] Iron and Iron binding capaci ty panelon 11-16-2021 Iron [Mass/Vol] 71 ug/dL Normal 41-186 [facility] Comment on above: Order Comment: Speci men Type: BLOOD SPECIMENOrdering Facility: [facility] Address: [address] [place] [address] Performed By: #### 5 0190-8 ####[facility] LABIA [id number] [place] [address] [place] Iron binding capacity [Mass/Vol] 376 ug/dL Normal 232-386 [facility] Comment on above: Order Comment: Speci men Type: BLOOD SPECIMENOrdering Facility: [facility] Address: [address] [address] Performed By: #### 5 0190-8 ####[facility] LABCLIA [id number] [address] Iron/TIBC [Molar ratio] 18.9 % Normal 15.0-57.0 [facility] Comment on above: Order Comment: Speci men Type: BLOOD SPECIMENOrdering Facility: [facility] Address: [address] [address] Performed By: #### 5 0190-8 ####[facility] LABCLIA [id number] [address] FERRITINon 10-25-2021 Ferritin [Mass/Vol] 79.0 ng/mL Normal 8.0-252.[address] [facility] Comment on above: Performed By: #### F ETIBC, FERR ####[facility] [address] [place], [place] [address]Dr. Devorah James IRON AND TIBCon 10-25-2021 % SATURATION 13.2 % Normal [facility] Comment on above: Performed By: #### F ETIBC, FERR ####[facility] [address] [place], [place] [address]Dr. Devorah James Iron [Mass/Vol] 38.0 ug/dL Critically low 50.0-170.[address] [facility] Comment on above: Performed By: #### F ETIBC, FERR ####[facility] [address] [address]Dr. Devorah James TIBC DIRECT 288.0 ug/dL Normal 250.0-450.0 [facility] Comment on above: Performed By: #### F ETIBC, FERR ####[facility] [address] [place], [place] [address]Dr. Devorah James RETICULOCYTEon 10-25-2021 RETIC 1.23 % Normal 0.60-3.10 [facility] Comment on above: Performed By: #### R ETIC ####[facility] [address] [place], [place] [address]JlDarvin Lua 09-28-2021 CNPN Telephone ([place]) NINA ESCALONA ([id number]) 1935 F Date Time Provider Department 09/28/21 CHARISMA CYR During your visit today, we recorded the following information about you: Charisma Cyr RN 09/28/2021 2:16 PM Signed ----- Message from Sherron Lyon RN sent at 09/28/2021 9:05 AM EDT ----- ----- Message ----- From: Binh Hernandez MD Sent: 09/27/2021 6:12 PM EDT To: Sherron Lyon RN De Tiff. Can you please let patient know [...] Status:Closed by CHARISMA CYR on 09/28/21 Normal [facility] CBC W Auto Differential pane l (Bld)on 09-26-2021 Basophils (Bld) [#/Vol] 0.05 10*3/uL Normal <0.11 [facility] Comment on above: Order Comment: Speci men Type: BLOOD SPECIMENOrdering Facility: [facility] Address: [address] [place] [address] Performed By: #### 5 7021-8 ####[facility] LABCLIA [id number] [place] [address] Basophils/100 WBC (Bld) 0.9 % Normal [facility] Comment on above: Order Comment: Speci men Type: BLOOD SPECIMENOrdering Facility: [facility] Address: [address] [address] Performed By: #### 5 7021-8 ####[facility] LABCLIA [id number] [place] [address] Differential cell count method Nom (Bld) Auto Normal [facility] Comment on above: Order Comment: Speci men Type: BLOOD SPECIMENOrdering Facility: [facility] Address: [address] [place] [address] Performed By: #### 5 7021-8 ####[facility] LABCLIA [id number] [place] [address] Eosinophils (Bld) [#/Vol] 0.23 10*3/uL Normal <0.46 [facility] Comment on above: Order Comment: Speci men Type: BLOOD SPECIMENOrdering Facility: [facility] Address: [address] [place] [address] Performed By: #### 5 7021-8 ####[facility] LABCLIA [id number] [place] [address] Eosinophils/100 WBC (Bld) 4.1 % Normal [facility] Comment on above: Order Comment: Speci men Type: BLOOD SPECIMENOrdering Facility: [facility] Address: [address] [place] [address] Performed By: #### 5 7021-8 ####[facility] LABCLIA [id number] [place] [address] Erythrocyte distribution width (RBC) [Ratio] 24.6 % High 11.5-15.0 [facility] Comment on above: Order Comment: Speci men Type: BLOOD SPECIMENOrdering Facility: [facility] Address: [address] [place], [place] [address] Performed By: #### 5 7021-8 ####[facility] LABCLIA [id number] [place] [address] Hematocrit (Bld) [Volume fraction] 43.4 % Normal 36.0-46.0 [facility] Comment on above: Order Comment: Speci men Type: BLOOD SPECIMENOrdering Facility: [facility] Address: [address] [place], [place] [address] Performed By: #### 5 7021-8 ####[facility] LABCLIA [id number] [place] [address] Hemoglobin (Bld) [Mass/Vol] 13.4 g/dL Normal 11.5-15.5 [facility] Comment on above: Order Comment: Speci men Type: BLOOD SPECIMENOrdering Facility: [facility] Address: [address] [place] [address] Performed By: #### 5 7021-8 ####[facility] LABCLIA [id number] [place] [address] IMMATURE GRAN % 0.5 % Normal [facility] Comment on above: Order Comment: Speci men Type: BLOOD SPECIMENOrdering Facility: [facility] Address: [address] [place] [address] Performed By: #### 5 7021-8 ####[facility] LABCLIA [id number] [place] [address] IMMATURE GRAN ABS 0.03 k/uL Normal <0.10 [facility] Comment on above: Order Comment: Speci men Type: BLOOD SPECIMENOrdering Facility: [facility] Address: [address] [place] [address] Performed By: #### 5 7021-8 ####[facility] LABCLIA [id number] [place] [address] Lymphocytes (Bld) [#/Vol] 1.30 10*3/uL Normal 1.00-4.00 [facility] Comment on above: Order Comment: Speci men Type: BLOOD SPECIMENOrdering Facility: [facility] Address: [address] [place] [address] Performed By: #### 5 7021-8 ####[facility] LABIA [id number] [place] [address] Lymphocytes/100 WBC (Bld) 23.2 % Normal [facility] Comment on above: Order Comment: Speci men Type: BLOOD SPECIMENOrdering Facility: [facility] Address: [address] [place] [address] Performed By: #### 5 7021-8 ####[facility] LABCLIA [id number] [place] [address] MCH (RBC) [Entitic mass] 25.3 pg Low 26.0-34.0 [facility] Comment on above: Order Comment: Speci men Type: BLOOD SPECIMENOrdering Facility: [facility] Address: [address] [place] [address] Performed By: #### 5 7021-8 ####[facility] LABCLIA [id number] [place] [address] MCHC (RBC) [Mass/Vol] 30.9 g/dL Normal 30.5-36.0 [facility] Comment on above: Order Comment: Speci men Type: BLOOD SPECIMENOrdering Facility: [facility] Address: [address] [place] [address] Performed By: #### 5 7021-8 ####[facility] LABIA [id number] [place] [address] MCV (RBC) [Entitic vol] 81.9 fL Normal 80.0-100.0 [facility] Comment on above: Order Comment: Speci men Type: BLOOD SPECIMENOrdering Facility: [facility] Address: [address] [place] [address] Performed By: #### 5 7021-8 ####[facility] LABCLIA [id number] [place] [address] Monocytes (Bld) [#/Vol] 0.52 10*3/uL Normal <0.87 [facility] Comment on above: Order Comment: Speci men Type: BLOOD SPECIMENOrdering Facility: [facility] Address: [address] [place] [address] Performed By: #### 5 7021-8 ####[facility] LABCLIA [id number] [place] [address] Monocytes/100 WBC (Bld) 9.3 % Normal [facility] Comment on above: Order Comment: Speci men Type: BLOOD SPECIMENOrdering Facility: [facility] Address: [address] [place] [address] Performed By: #### 5 7021-8 ####[facility] LABCLIA [id number] [place] [address] Neutrophils (Bld) [#/Vol] 3.47 10*3/uL Normal 1.45-7.50 [facility] Comment on above: Order Comment: Speci men Type: BLOOD SPECIMENOrdering Facility: [facility] Address: [address] [place] [address] Performed By: #### 5 7021-8 ####[facility] LABCLIA [id number] [place] [address] Neutrophils/100 WBC (Bld) 62.0 % Normal [facility] Comment on above: Order Comment: Speci men Type: BLOOD SPECIMENOrdering Facility: [facility] Address: [address] [place] [address] Performed By: #### 5 7021-8 ####[facility] LABCLIA [id number] [place] [address] Nucleated RBC (Bld) [#/Vol] 10*3/uL Normal <0.01 [facility] Comment on above: Order Comment: Speci men Type: BLOOD SPECIMENOrdering Facility: [facility] Address: [address] [place] [address] Performed By: #### 5 7021-8 ####[facility] LABIA [id number] [place] [address] Nucleated RBC/100 WBC (Bld) [Ratio] 0.0 /100 WBC Normal [facility] Comment on above: Order Comment: Speci men Type: BLOOD SPECIMENOrdering Facility: [facility] Address: [address] [place], [place] [id number] Performed By: #### 5 7021-8 ####[facility] LABCLIA [id number] [place] [address] Platelet mean volume (Bld) [Entitic vol] 9.9 fL Normal 9.0-12.7 [facility] Comment on above: Order Comment: Speci men Type: BLOOD SPECIMENOrdering Facility: [facility] Address: [address] [place] [address] Performed By: #### 5 7021-8 ####[facility] LABCLIA [id number] [place] [address] Platelets (Bld) [#/Vol] 175 10*3/uL Normal 150-400 [facility] Comment on above: Order Comment: Speci men Type: BLOOD SPECIMENOrdering Facility: [facility] Address: [address] [place] [address] Performed By: #### 5 7021-8 ####[facility] LABCLIA [id number] [place] [address] RBC (Bld) [#/Vol] 5.30 10*6/uL High 3.90-5.20 [facility] Comment on above: Order Comment: Speci men Type: BLOOD SPECIMENOrdering Facility: [facility] Address: [address] [place], [place] [address] Performed By: #### 5 7021-8 ####[facility] LABCLIA [id number] [place] [address] WBC (Bld) [#/Vol] 5.60 10*3/uL Normal 3.70-11.00 [facility] Comment on above: Order Comment: Speci men Type: BLOOD SPECIMENOrdering Facility: [facility] Address: [address] [place] [address] Performed By: #### 5 7021-8 ####[facility] LABCLIA [id number] [place] [address] Abs Immature Gran 0.03 k/uL <0.10 k/uL [facility] Basophils (Bld) [#/Vol] 0.05 10*3/uL <0.11 k/uL [facility] Basophils/100 WBC (Bld) 0.9 % [facility] Differential cell count method Nom (Bld) Auto [facility] Eosinophils (Bld) [#/Vol] 0.23 10*3/uL <0.46 k/uL [facility] Eosinophils/100 WBC (Bld) 4.1 % [facility] Erythrocyte distribution width (RBC) [Ratio] 24.6 % High 11.5 - 15.0 % [facility] Hematocrit (Bld) [Volume fraction] 43.4 % 36.0 - 46.0 % [facility] Hemoglobin (Bld) [Mass/Vol] 13.4 g/dL 11.5 - 15.5 g/dL [facility] Immature Gran % 0.5 % [facility] Lymphocytes (Bld) [#/Vol] 1.30 10*3/uL 1.00 - 4.00 k/uL [facility] Lymphocytes/100 WBC (Bld) 23.2 % [facility] MCH (RBC) [Entitic mass] 25.3 pg Low 26.0 - 34.0 pg [facility] MCHC (RBC) [Mass/Vol] 30.9 g/dL 30.5 - 36.0 g/dL [facility] MCV (RBC) [Entitic vol] 81.9 fL 80.0 - 100.0 fL [facility] Monocytes (Bld) [#/Vol] 0.52 10*3/uL <0.87 k/uL [facility] Monocytes/100 WBC (Bld) 9.3 % [facility] Neutrophils (Bld) [#/Vol] 3.47 10*3/uL 1.45 - 7.50 k/uL [facility] Neutrophils/100 WBC (Bld) 62.0 % [facility] Nucleated RBC (Bld) [#/Vol] 10*3/uL <0.01 k/uL [facility] Nucleated RBC/100 WBC (Bld) [Ratio] 0.0 /100 WBC [facility] Platelet mean volume (Bld) [Entitic vol] 9.9 fL 9.0 - 12.7 fL [facility] in Platelets (Bld) [#/Vol] 175 10*3/uL 150 - 400 k/uL [facility] RBC (Bld) [#/Vol] 5.30 10*6/uL High 3.90 - 5.2 0 m/uL [facility] WBC (Bld) [#/Vol] 5.60 10*3/uL 3.70 - 11. 00 k/uL [facility] CNOVSPon 09-26-2021 CNOVSP Visit (SP) Office ([facility]) NINA ESCALONA ([id number]) 1935 F Date Time Provider Department 09/26/21 [...] which included preparing to see the patient, jszp-[id number]-ogtc patient care, completing clinical documentation, obtaining and/or reviewing separately obtained history, performing a medically appropriate examination, counseling and educating the patient/family/careg iver, ordering medications, tests, or procedures, independently interpreting results (not separately reported) and communicating results to the patient/family/careg iver. 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 Follow-up and Disposition History for Encounter Date Provider Department Center 09/26/2021 [id number] HERNANDEZ [facility] Prescriptions as of 09/26/2021 - aspirin 81 mg chewable tablet Take 81 mg by mouth once daily. - famotidine (PEPCID) 20 mg tablet Take 1 tablet by mouth twice daily. - latanoprost (XALATAN) 0.005 % ophthalmic solution INSTILL 1 DROP RIGHT EYE [place] (more content not included)... Normal [facility] Ferritin SerPl-mCncon 2021 Ferritin [Mass/Vol] 116.0 ng/mL Normal 14.7-205.1 [facility] Comment on above: Order Comment: Speci men Type: BLOOD SPECIMENOrdering Facility: [facility] Address: [address] [place] [address] Performed By: #### 5 0190-8, 2276-4 ####[facility] LABCLIA [id number] [place] [address] [place] Iron and Iron binding capaci ty panelon 09-26-2021 Iron [Mass/Vol] 39 ug/dL Low 41-186 [facility] Comment on above: Order Comment: Speci men Type: BLOOD SPECIMENOrdering Facility: [facility] Address: [address] [place] [address] Performed By: #### 5 0190-8, 6-4 ####[facility] LABCLIA [id number] [place] [address] [place] Iron binding capacity [Mass/Vol] 348 ug/dL Normal 232-386 [facility] Comment on above: Order Comment: Speci men Type: BLOOD SPECIMENOrdering Facility: [facility] Address: [address] [place] [address] Performed By: #### 5 0190-8, 2275-4 ####[facility] LABCLIA [id number] [place] [address] [place] Iron/TIBC [Molar ratio] 11.2 % Low 15.0-57.0 [facility] Comment on above: Order Comment: Speci men Type: BLOOD SPECIMENOrdering Facility: [facility] Address: [address] [place] [address] Performed By: #### 5 0190-8, 2275-4 ####[facility] LABCLIA [id number] [place] [address] [place] PROF CHEM 8 (BAS METB)on Anion gap [Moles/Vol] 12.6 mmol/L Normal [facility] Comment on above: Performed By: #### B MP ####[facility] [address] [place], [place] [address]UlDarvin James Calcium [Mass/Vol] 8.4 mg/dL Critically low 8.5-10.1 [facility] Comment on above: Performed By: #### B MP ####[facility] [address] [place] [address]Dr. Devorah James Chloride [Moles/Vol] 104 mmol/L Normal 98-107 [facility] Comment on above: Performed By: #### B MP ####[facility] [address] [place] [address]Dr. Devorah James CO2 [Moles/Vol] 25.8 mmol/L Normal 21.0-32.0 The [facility] Comment on above: Performed By: #### B MP ####[facility] [address] [place] [address]Dr. Devorah Jacob Creatinine [Mass/Vol] 0.96 mg/dL Normal 0.55-1.02 The [facility] Comment on above: Performed By: #### B MP ####[facility] [address] [place] [address]Dr. Elsycindy Jacob EGFR-AF CAMEROONIAN >60 Normal >=60 The [facility] Comment on above: Performed By: #### B MP ####[facility] [address] [place] [address]Dr. Elsycindy Jacob EGFR-NON AF CAMEROONIAN 55 mL/min/1.73m2 Critically low >=60 The [facility] Comment on above: Performed By: #### B MP ####[facility] [address] [place] [address]Dr. Elsycindy Jacob Glucose [Mass/Vol] 74 mg/dL Normal 74-106 The [facility] Comment on above: Performed By: #### B MP ####[facility] [address] [place] [address]Dr. Devorah James Potassium [Moles/Vol] 4.4 mmol/L Normal 3.5-5.1 The [facility] Comment on above: Performed By: #### B MP ####[facility] [address] [place] [address]Dr. Devorah James Sodium [Moles/Vol] 138 mmol/L Normal 136-145 The [facility] Comment on above: Performed By: #### B MP ####[facility] [address] [place], [place] [address]DrDarvin James Urea nitrogen [Mass/Vol] 16.0 mg/dL Normal 7.0-18.0 [facility] Comment on above: Performed By: #### B MP ####[facility] [address] [place] [address]DrDarvin James Urea nitrogen/Creatinine [Mass ratio] 16.7 mg/mg Normal The [facility] Comment on above: Performed By: #### B MP ####[facility] [address] [place] [address]Dr. Devorah James VITAMIN D 25 OHon 09-20-2021 VIT D 25-OH 51.6 ng/mL Normal The [facility] Comment on above: Performed By: #### V ITAD #### [facility] Laboratory [address] [place] [address] Dr. Devorah James VIT D RANGES SEE BELOW Normal The [facility] Comment on above: Result Comment: <20 ng/mL Vit D deficient 20 - <30 ng/mL Vit D insufficient 30 - 100 ng/mL Vit D sufficient >100 ng/mL Potential Toxicity Performed By: #### V ITAD #### [facility] Laboratory [address] [place] [address] [address] Devorah James LACTOFERRIN FECAL QUANTon Lactoferrin, Fecal, Quant. 4.46 ug/mL(g) Normal 0.00-7.24 The [facility] Comment on above: Result Comment: . Baseline [...] (IBS). Performed By: #### L ACTFQ #### [facility] Laboratory [address] [place] [address] [address] Devorah James C. DIFF PCRon 09-02-2021 C. DIFFICILE PCR Negative Normal NEGATIVE The [facility] Comment on above: Performed By: #### C DIFPOC #### [facility] Laboratory [address] [place], [place] [address] Dr. Devorah James OCC BLD IMMUNO SCREENon 07-0 OCCULT BLOOD Negative Normal NEGATIVE The [facility] Comment on above: Performed By: #### O BSCRN ####[facility] [address] [place], [place] [address]LkDr. Dveorah James MG MAMM SCREEN 3D VALERIY CADon 08-04-2021 MG MAMM SCREEN 3D VALERIY CAD Patient: NINA ESCALONA Exam Date: 08/04/2021 : 1935 Gender:F Ordering : DR ERIK ZIMMERMAN D.O. Admission #: [id number] Family : Order #: [id number] CLICK HERE TO VIEW EXAM RADIOLOGY REPORT [...] panc/liver cancer at age 74. LOCATION: The [facility] BREAST COMPOSITION: Scattered areas fibroglandular density. FINDINGS: [...] Aviles M.D. on 08/04/2021 at 13:54 Normal [facility] CNOVSPon 07-26-2021 CNOVSP Visit (SP) Office ([facility]) NINA ESCALONA ([id number]) 1935 F Date Time Provider Department 07/26/21 [...] which included preparing to see the patient, tuvt-do-ntwy patient care, completing clinical documentation, obtaining and/or reviewing separately obtained history, performing a medically appropriate examination, counseling and educating the patient/family/careg iver, ordering medications, tests, or procedures, independently interpreting results (not separately reported) and communicating results to the patient/family/careg iver. CC: Erik Zimmerman Referring Provider: BINH HERNANDEZ [[id number]] Allergies As of Date: 07/26/2021 Noted Allergy [...] for Encounter Date Provider Department Center 07/26/2021 [id number] HERNANDEZ [place] [facility] Prescriptions as of 07/26/2021 - latanoprost [...] (HCC) [M31.4] (more content not included)... [facility] ([facility]) NINA ESCALONA ([id number]) 1935 F Date Time Provider Department 07/18/21 [...] Status:Closed by CHARISMA HENDERSON on 07/18/21 Normal [facility] CBC AUTO DIFFon 07-12-2021 BASO # 0.1 103/ul Normal 0.0-0.1 [facility] Comment on above: Performed By: #### C BC #### [facility] Laboratory [address] [place] [address] [address] Devorah James Basophils/100 WBC (Bld) 1.1 % Normal 0.2-2.0 [facility] Comment on above: Performed By: #### C BC #### [facility] Laboratory [address] [place] [address] [address] Devorah James EO # 0.3 103/ul Normal 0.0-0.7 The [facility] Comment on above: Performed By: #### C BC #### [facility] Laboratory [address] [place] [address] Dr. Devorah James Eosinophils/100 WBC (Bld) 4.8 % Normal 0.9-7.0 [facility] Comment on above: Performed By: #### C BC #### [facility] Laboratory [address] [place] [address] Dr. Devorah James Erythrocyte distribution width (RBC) [Ratio] 24.4 % Critically high 11.0-15.0 [facility] Comment on above: Performed By: #### C BC #### [facility] Laboratory [address] [place] [address] Dr. Devorah James Hematocrit (Bld) [Volume fraction] 35.0 % Critically low 36.0-48.0 [facility] Comment on above: Performed By: #### C BC #### [facility] Laboratory [address] [place] [address] Dr. Devorah James Hemoglobin (Bld) [Mass/Vol] 9.6 g/dL Critically low 12.0-16.0 The [facility] Comment on above: Performed By: #### C BC #### [facility] Laboratory [address] [place] [address] Dr. Devorah James IG # 0.02 10e3/ul Normal 0.00-0.03 The [facility] Comment on above: Performed By: #### C BC #### [facility] Laboratory [address] [place] [address] Dr. Devorah James IG % 0.4 % Normal 0.0-0.5 The [facility] Comment on above: Performed By: #### C BC #### [facility] Laboratory [address] [place] [address] Dr. Devorah James LYMPH # 1.4 103/ul Normal 1.2-3.8 The [facility] Comment on above: Performed By: #### C BC #### [facility] Laboratory [address] [place] [address] Dr. Devorah James Lymphocytes/100 WBC (Bld) 24.7 % Normal 20.5-60.0 [facility] Comment on above: Performed By: #### C BC #### [facility] Laboratory [address] [place] [address] Dr. Devorah James MANUAL DIFF REQ NO Normal The [facility] Comment on above: Performed By: #### C BC #### [facility] Laboratory [address] [place] [address] Dr. Devorah James MCH (RBC) [Entitic mass] 20.2 pg Critically low 26.7-34.0 [facility] Comment on above: Performed By: #### C BC #### [facility] Laboratory [address] [place] [address] Dr. Devorah James MCHC (RBC) [Mass/Vol] 27.4 g/dL Critically low 29.9-35.2 [facility] Comment on above: Performed By: #### C BC #### [facility] Laboratory [address] [place] [address] Dr. Devorah James MCV (RBC) [Entitic vol] 73.7 fL Critically low 81.0-99.0 [facility] Comment on above: Performed By: #### C BC #### [facility] Laboratory [address] [place] [address] Dr. Devorah James MONO # 0.6 103/ul Normal 0.3-0.8 [facility] Comment on above: Performed By: #### C BC #### [facility] Laboratory [address] [place] [address] Dr. Devorah James Monocytes/100 WBC (Bld) 11.2 % Normal 1.7-12.0 The [facility] Comment on above: Performed By: #### C BC #### [facility] Laboratory [address] [place] [address] Dr. Devorah James NEUT # 3.2 103/ul Normal 1.4-6.5 The [facility] Comment on above: Performed By: #### C BC #### [facility] Laboratory [address] [place] [address] Dr. Devorah James Neutrophils/100 WBC (Bld) 57.8 % Normal 43.0-75.0 The [facility] Comment on above: Performed By: #### C BC #### [facility] Laboratory [address] [place] [address] Dr. Devorah James Platelet mean volume (Bld) [Entitic vol] 10.2 fL Normal 9.5-13.5 The [facility] Comment on above: Performed By: #### C BC #### [facility] Laboratory [address] [place] [address] Dr. Devorah James PLT 212 103/ul Normal 150-450 The [facility] Comment on above: Performed By: #### C BC #### [facility] Laboratory [address] [place] [address] Dr. Devorah James RBC 4.75 106/ul Normal 4.20-5.40 The [facility] Comment on above: Result Comment: hypo chromic 2+, anisocytosis, microcytic Performed By: #### C BC #### [facility] Laboratory [address] [place] [address] Dr. Devorah James WBC 5.5 103/ul Normal 4.0-11.0 The [facility] Comment on above: Performed By: #### C BC #### [facility] Laboratory [address] [place] [address] Dr. Devorah James FERRITINon 07-12-2021 Ferritin [Mass/Vol] 86.0 ng/mL Normal 8.0-252.[address] [facility] Comment on above: Performed By: #### F ERR, FETIBC #### [facility] Laboratory [address] [place] [address] Dr. Devorah James IRON AND TIBCon 07-12-2021 % SATURATION 6.1 % Normal The [facility] Comment on above: Performed By: #### F ERR, FETIBC #### [facility] Laboratory [address] [place] [address] Dr. Devorah James Iron [Mass/Vol] 24.0 ug/dL Critically low 50.0-170.[address] [facility] Comment on above: Performed By: #### F ERR, FETIBC #### [facility] Laboratory [address] [place], [place] [address] Dr. Devorah James [facility] 396.0 ug/dL Normal 250.0-450.0 The [facility] Comment on above: Performed By: #### F ERR, SRINIVASIBC #### [facility] Laboratory [address] [place], [place] [address] Dr. Devorah James CNPNon 06-24-2021 CNPN Telephone ([facility]) NINA ESCALONA ([id number]) 1935 F Date Time Provider Department 06/24/21 [...] and to return call if any questions/concerns. Chairsma Henderson RN Allergies As of Date: 06/24/2021 [...] Status:Closed by CHARISMA HENDERSON on 06/24/21 [facility] 06-16-2021 EAGLEN Telephone ([facility]) NINA ESCALONA ([id number]) 1935 F Date Time Provider Department 06/16/21 [...] Status:Closed by DARY BRADEN on 06/28/21 Normal [facility] CBC W Auto Differential pane l (Bld)on 06-14-2021 Basophils (Bld) [#/Vol] 0.06 10*3/uL Normal <0.11 [facility] Comment on above: Order Comment: Speci men Type: BLOOD SPECIMENOrdering Facility: [facility] Address: [address], [place] [address] Performed By: #### 1 4196-0, 55219-2 ####[facility] LABCLIA [id number] [place] [address] Basophils/100 WBC (Bld) 1.2 % Normal [facility] Comment on above: Order Comment: Speci men Type: BLOOD SPECIMENOrdering Facility: [facility] Address: [address] [place] [address] Performed By: #### 1 4196-0, ####[facility] LABCLIA [id number] [place] [address] Differential cell count method Nom (Bld) Auto Normal [facility] Comment on above: Order Comment: Speci men Type: BLOOD SPECIMENOrdering Facility: [facility] Address: [address] [place] [address] Performed By: #### 1 4196-0, ####[facility] LABCLIA [id number] [place] [address] Eosinophils (Bld) [#/Vol] 0.18 10*3/uL Normal <0.46 [facility] Comment on above: Order Comment: Speci men Type: BLOOD SPECIMENOrdering Facility: [facility] Address: [address] [place] [address] Performed By: #### 1 4196-0, ####[facility] LABCLIA [id number] [place] [address] Eosinophils/100 WBC (Bld) 3.6 % Normal [facility] Comment on above: Order Comment: Speci men Type: BLOOD SPECIMENOrdering Facility: [facility] Address: [address] [place] [address] Performed By: #### 1 4196-0, ####[facility] LABCLIA [id number] [place] [address] Erythrocyte distribution width (RBC) [Ratio] 18.1 % High 11.5-15.0 [facility] Comment on above: Order Comment: Speci men Type: BLOOD SPECIMENOrdering Facility: [facility] Address: [address] [place] [address] Performed By: #### 1 4196-0, 79933-9 ####[facility] LABCLIA [id number] [place] [address] Hematocrit (Bld) [Volume fraction] 32.6 % Low 36.0-46.0 [facility] Comment on above: Order Comment: Speci men Type: BLOOD SPECIMENOrdering Facility: [facility] Address: [address] [place] [address] Performed By: #### 1 4196-0, 93966-5 ####[facility] LABIA [id number] [place] [address] Hemoglobin (Bld) [Mass/Vol] 8.9 g/dL Low 11.5-15.5 [facility] Comment on above: Order Comment: Speci men Type: BLOOD SPECIMENOrdering Facility: [facility] Address: [address] [place] [address] Performed By: #### 1 4196-0, 81154-0 ####[facility] LABIA [id number] [place] [address] IMMATURE GRAN % 0.4 % Normal [facility] Comment on above: Order Comment: Speci men Type: BLOOD SPECIMENOrdering Facility: [facility] Address: [address] [place] [address] Performed By: #### 1 4196-0, 57497-0 ####[facility] LABIA [id number] [place] [address] IMMATURE GRAN ABS <0.03 Normal <0.10 [facility] Comment on above: Order Comment: Speci men Type: BLOOD SPECIMENOrdering Facility: [facility] Address: [address] [place], [place] [address] Performed By: #### 1 4196-0, 21152-8 ####[facility] LABCLIA [id number] [place] [address] Lymphocytes (Bld) [#/Vol] 1.07 10*3/uL Normal 1.00-4.00 [facility] Comment on above: Order Comment: Speci men Type: BLOOD SPECIMENOrdering Facility: [facility] Address: [address] [place] [address] Performed By: #### 1 4196-0, 77129-3 ####[facility] LABCLIA [id number] [place] [address] Lymphocytes/100 WBC (Bld) 21.6 % Normal [facility] Comment on above: Order Comment: Speci men Type: BLOOD SPECIMENOrdering Facility: [facility] Address: [address] [place] [address] Performed By: #### 1 4196-0, 70498-7 ####[facility] LABCLIA [id number] [place] [address] MCH (RBC) [Entitic mass] 19.0 pg Low 26.0-34.0 [facility] Comment on above: Order Comment: Speci men Type: BLOOD SPECIMENOrdering Facility: [facility] Address: [address] [place] [address] Performed By: #### 1 4196-0, 13774-5 ####[facility] LABCLIA [id number] [place] [address] MCHC (RBC) [Mass/Vol] 27.3 g/dL Low 30.5-36.0 [facility] Comment on above: Order Comment: Speci men Type: BLOOD SPECIMENOrdering Facility: [facility] Address: [address] [place] [address] Performed By: #### 1 4196-0, 07050-0 ####[facility] LABCLIA [id number] [place] [address] MCV (RBC) [Entitic vol] 69.7 fL Low 80.0-100.0 [facility] Comment on above: Order Comment: Speci men Type: BLOOD SPECIMENOrdering Facility: [facility] Address: [address] [place] [address] Performed By: #### 1 4196-0, 72390-6 ####[facility] LABCLIA [id number] [place] [address] Monocytes (Bld) [#/Vol] 0.68 10*3/uL Normal <0.87 [facility] Comment on above: Order Comment: Speci men Type: BLOOD SPECIMENOrdering Facility: [facility] Address: [address] [place] [address] Performed By: #### 1 4196-0, 28393-1 ####[facility] LABCLIA [id number] [place] [address] Monocytes/100 WBC (Bld) 13.7 % Normal [facility] Comment on above: Order Comment: Speci men Type: BLOOD SPECIMENOrdering Facility: [facility] Address: [address] [place] [address] Performed By: #### 1 4196-0, 98884-8 ####[facility] LABCLIA [id number] [place] [address] Neutrophils (Bld) [#/Vol] 2.94 10*3/uL Normal 1.45-7.50 [facility] Comment on above: Order Comment: Speci men Type: BLOOD SPECIMENOrdering Facility: [facility] Address: [address] [place] [address] Performed By: #### 1 4196-0, 03042-8 ####[facility] LABCLIA [id number] [place] [address] Neutrophils/100 WBC (Bld) 59.5 % Normal [facility] Comment on above: Order Comment: Speci men Type: BLOOD SPECIMENOrdering Facility: [facility] Address: [address] [place], [place] [address] Performed By: #### 1 4196-0, 53551-7 ####[facility] LABIA [id number] [place] [address] Nucleated RBC (Bld) [#/Vol] 10*3/uL Normal <0.01 [facility] Comment on above: Order Comment: Speci men Type: BLOOD SPECIMENOrdering Facility: [facility] Address: [address] [place], [place] [address] Performed By: #### 1 4196-0, 90715-1 ####[facility] LABIA [id number] [place] [address] Nucleated RBC/100 WBC (Bld) [Ratio] 0.0 /100 WBC Normal [facility] Comment on above: Order Comment: Speci men Type: BLOOD SPECIMENOrdering Facility: [facility] Address: [address] [place], [place] [address] Performed By: #### 1 4196-0, 43103-7 ####[facility] LABIA [id number] [place] [address] Platelet mean volume (Bld) [Entitic vol] 10.4 fL Normal 9.0-12.7 [facility] Comment on above: Order Comment: Speci men Type: BLOOD SPECIMENOrdering Facility: [facility] Address: [address] [place], [place] [address] Performed By: #### 1 4196-0, 27643-6 ####[facility] LABIA [id number] [place] [address] Platelets (Bld) [#/Vol] 230 10*3/uL Normal 150-400 [facility] Comment on above: Order Comment: Speci men Type: BLOOD SPECIMENOrdering Facility: [facility] Address: [address] [place], [place] [id number] Result Comment: Samp le checked for clot Performed By: #### 1 4196-0, 46283-5 ####[facility] LABCLIA [id number] [place] [address] RBC (Bld) [#/Vol] 4.68 10*6/uL Normal 3.90-5.20 [facility] Comment on above: Order Comment: Speci men Type: BLOOD SPECIMENOrdering Facility: [facility] Address: [address] [place] [address] Performed By: #### 1 4196-0, 17553-1 ####[facility] LABCLIA [id number] [place] [address] WBC (Bld) [#/Vol] 4.95 10*3/uL Normal 3.70-11.00 [facility] Comment on above: Order Comment: Speci men Type: BLOOD SPECIMENOrdering Facility: [facility] Address: [address] [place] [address] Performed By: #### 1 4196-0, 54573-6 ####[facility] LABCLIA [id number] [place] [id number] Abs Immature Gran <0.03 <0.10 k/uL [facility] Basophils (Bld) [#/Vol] 0.06 10*3/uL <0.11 k/uL [facility] Basophils/100 WBC (Bld) 1.2 % [facility] Differential cell count method Nom (Bld) Auto [facility] Eosinophils (Bld) [#/Vol] 0.18 10*3/uL <0.46 k/uL [facility] Eosinophils/100 WBC (Bld) 3.6 % [facility] Erythrocyte distribution width (RBC) [Ratio] 18.1 % High 11.5 - 15.0 % [facility] Hematocrit (Bld) [Volume fraction] 32.6 % Low 36.0 - 46.0 % [facility] ic Hemoglobin (Bld) [Mass/Vol] 8.9 g/dL Low 11.5 - 15.5 g/dL [facility] Immature Gran % 0.4 % [facility] Lymphocytes (Bld) [#/Vol] 1.07 10*3/uL 1.00 - 4.00 k/uL [facility] Lymphocytes/100 WBC (Bld) 21.6 % [facility] MCH (RBC) [Entitic mass] 19.0 pg Low 26.0 - 34.0 pg [facility] MCHC (RBC) [Mass/Vol] 27.3 g/dL Low 30.5 - 36.0 g/dL [facility] MCV (RBC) [Entitic vol] 69.7 fL Low 80.0 - 100.0 fL [facility] Monocytes (Bld) [#/Vol] 0.68 10*3/uL <0.87 k/uL [facility] Monocytes/100 WBC (Bld) 13.7 % [facility] Neutrophils (Bld) [#/Vol] 2.94 10*3/uL 1.45 - 7.50 k/uL [facility] Neutrophils/100 WBC (Bld) 59.5 % [facility] Nucleated RBC (Bld) [#/Vol] 10*3/uL <0.01 k/uL [facility] Nucleated RBC/100 WBC (Bld) [Ratio] 0.0 /100 WBC [facility] Platelet mean volume (Bld) [Entitic vol] 10.4 fL 9.0 - 12.7 fL [facility] inic Platelets (Bld) [#/Vol] 230 10*3/uL 150 - 400 k/uL [facility] RBC (Bld) [#/Vol] 4.68 10*6/uL 3.90 - 5.2 0 m/uL [facility] WBC (Bld) [#/Vol] 4.95 10*3/uL 3.70 - 11. 00 k/uL [facility] CNOVSPon 06-14-2021 CNOVSP Visit (SP) Office ([facility]) NINA ESCALONA ([id number]) 1935 F Date Time Provider Department 06/14/21 [...] which included preparing to see the patient, [id number] patient care, completing clinical documentation, obtaining and/or reviewing separately obtained history, performing a medically appropriate examination, counseling and educating the patient/family/careg iver, ordering medications, tests, or procedures, independently interpreting results (not separately reported) and communicating results to the patient/family/careg iver. CC: Erik Zimmerman Referring Provider: ERIK ZIMMERMAN [[id number]] Allergies As of Date: 06/14/2021 Noted Allergy [...] [D50.0] Order(s):CBC + DIFF [SQCBCDIF] Order #: [id number] FUTURE COMP METABOLIC PANEL [SQCMP] Order #: [id number] FUTURE IRON + TIBC [SQIRON] Order #: [id number] FUTURE FERRITIN BLD [SQFERR] Order #: [id number] FUTURE RETIC COUNT [SQRETIC] Order #: [id number] FUTURE CONSULT TO GASTROENTEROLOGY [90 (more content not included)... Normal [facility] CNPNon 06-14-2021 CNPN Telephone (NCCAP) NINA ESCALONA ([id number]) 1935 F Date Time Provider Department 06/14/21 [facility] During your visit today, we recorded the following information about you: Lilian Valdez Sec 06/14/2021 12:33 PM Signed Patient is being referred to [facility] Dr. Espana. Their office will call the patient to schedule this appt. Jackie, Please fax records to his office. Info has been printed for faxing and is in your mailbox. Thank you Devi Lawrence [facility] 06/14/2021 1:14 PM Signed Records faxed [...] Status:Closed by LILIAN ROGERS on 06/22/21 Normal [facility] Comprehensive metabolic 2000 panelon 06-14-2021 Albumin [Mass/Vol] 4.6 g/dL Normal 3.9-4.9 [facility] Comment on above: Order Comment: Speci men Type: BLOOD SPECIMENOrdering Facility: [facility] Address: [address] [place] [address] Performed By: #### 2 4323-8 ####[facility] LABCLIA [id number] [place] [address] ALP [Catalytic activity/Vol] 42 U/L Normal 34-123 [facility] Comment on above: Order Comment: Speci men Type: BLOOD SPECIMENOrdering Facility: [facility] Address: [address] [place] [address] Performed By: #### 2 4323-8 ####[facility] LABCLIA [id number] [place] [address] ALT [Catalytic activity/Vol] 12 U/L Normal 7-38 [facility] Comment on above: Order Comment: Speci men Type: BLOOD SPECIMENOrdering Facility: [facility] Address: [address] [place] [address] Performed By: #### 2 4323-8 ####[facility] LABCLIA [id number] [place] [address] Anion gap [Moles/Vol] 8 mmol/L Low 9-18 [facility] Comment on above: Order Comment: Speci men Type: BLOOD SPECIMENOrdering Facility: [facility] Address: [address] [place] [address] Performed By: #### 2 4323-8 ####[facility] LABCLIA [id number] [place] [address] AST [Catalytic activity/Vol] 24 U/L Normal 13-35 [facility] Comment on above: Order Comment: Speci men Type: BLOOD SPECIMENOrdering Facility: [facility] Address: [address] [place], [place] [address] Performed By: #### 2 4323-8 ####[facility] LABCLIA [id number] [place] [address] Bilirubin [Mass/Vol] 0.3 mg/dL Normal 0.2-1.3 [facility] Comment on above: Order Comment: Speci men Type: BLOOD SPECIMENOrdering Facility: [facility] Address: [address] [place] [address] Performed By: #### 2 4323-8 ####[facility] LABCLIA [id number] [place] [address] Calcium [Mass/Vol] 9.5 mg/dL Normal 8.5-10.2 [facility] Comment on above: Order Comment: Speci men Type: BLOOD SPECIMENOrdering Facility: [facility] Address: [address] [place] [address] Performed By: #### 2 4323-8 ####[facility] LABCLIA [id number] [place] [address] Chloride [Moles/Vol] 102 mmol/L Normal 97-105 [facility] Comment on above: Order Comment: Speci men Type: BLOOD SPECIMENOrdering Facility: [facility] Address: [address] [place] [address] Performed By: #### 2 4323-8 ####[facility] LABCLIA [id number] [place] [address] CO2 [Moles/Vol] 26 mmol/L Normal 22-30 [facility] Comment on above: Order Comment: Speci men Type: BLOOD SPECIMENOrdering Facility: [facility] Address: [address] [place] [address] Performed By: #### 2 4323-8 ####[facility] LABCLIA [id number] [place] [address] Creatinine [Mass/Vol] 0.98 mg/dL High 0.58-0.96 [facility] Comment on above: Order Comment: Speci men Type: BLOOD SPECIMENOrdering Facility: [facility] Address: [address] [place] [address] Performed By: #### 2 4323-8 ####[facility] LABCLIA [id number] [place] [address] ESTIMATED GLOMERULAR FILTRATION RATE 56 mL/min/1.73m??? Low >=60 [facility] Comment on above: Order Comment: Speci men Type: BLOOD SPECIMENOrdering Facility: [facility] Address: [address] [phone] Result Comment: Kala mated Glomerular Filtration Rate [...] GFR. Performed By: #### 2 4323-8 ####[facility] LABCLIA [id number] [place] [address] Glucose [Mass/Vol] 86 mg/dL Normal 74-99 [facility] Comment on above: Order Comment: Nesha parikh Type: BLOOD SPECIMENOrdering Facility: [facility] Address: [address] [place] [address] Result Comment: The [place] Diabetes Association (ADA) provides guidance for cutoff [...] Standards of Medical Care in Diabetes 2016, [place] Diabetes Association. Diabetes Care. 2016.39(Suppl 1). Performed By: #### 2 4323-8 ####[facility] LABIA [id number] [place] [address] Potassium [Moles/Vol] 4.4 mmol/L Normal 3.7-5.1 [facility] Comment on above: Order Comment: Nesha parikh Type: BLOOD SPECIMENOrdering Facility: [facility] Address: [address] [place] [phone] Performed By: #### 2 4323-8 ####[facility] LABCLIA [id number] [place] [address] Protein [Mass/Vol] 6.9 g/dL Normal 6.3-8.0 [facility] Comment on above: Order Comment: Speci men Type: BLOOD SPECIMENOrdering Facility: [facility] Address: [address] [place] [address] Performed By: #### 2 4323-8 ####[facility] LABCLIA [id number] [place] [address] Sodium [Moles/Vol] 136 mmol/L Normal 136-144 [facility] Comment on above: Order Comment: Speci men Type: BLOOD SPECIMENOrdering Facility: [facility] Address: [address] [place] [address] Performed By: #### 2 4323-8 ####[facility] LABCLIA [id number] [place] [address] Urea nitrogen [Mass/Vol] 18 mg/dL Normal 7-21 [facility] Comment on above: Order Comment: Speci men Type: BLOOD SPECIMENOrdering Facility: [facility] Address: [address] [place] [address] Performed By: #### 2 4323-8 ####[facility] LABCLIA [id number] [place] [address] Albumin [Mass/Vol] 4.6 g/dL 3.9 - 4.9 g/dL [facility] ALP [Catalytic activity/Vol] 42 U/L 34 - 123 U/L [facility] ALT [Catalytic activity/Vol] 12 U/L 7 - 38 U/L [facility] Anion gap [Moles/Vol] 8 mmol/L Low 9 - 18 mmol/L [facility] AST [Catalytic activity/Vol] 24 U/L 13 - 35 U/L [facility] Bilirubin [Mass/Vol] 0.3 mg/dL 0.2 - 1 .3 mg/dL [facility] Calcium [Mass/Vol] 9.5 mg/dL 8.5 - 10. 2 mg/dL [facility] Chloride [Moles/Vol] 102 mmol/L 97 - 10 5 mmol/L [facility] CO2 [Moles/Vol] 26 mmol/L 22 - 30 mmol/L [facility] Creatinine [Mass/Vol] 0.98 mg/dL High 0.58 - 0.96 mg/dL [facility] Estimated Glomerular Filtration Rate 56 mL/min/1.73m Low >=60 mL/min/1.73m [facility] Glucose [Mass/Vol] 86 mg/dL 74 - 99 mg/dL [facility] Potassium [Moles/Vol] 4.4 mmol/L 3.7 - 5.1 mmol/L [facility] Protein [Mass/Vol] 6.9 g/dL 6.3 - 8.0 g/dL [facility] Sodium [Moles/Vol] 136 mmol/L 136 - 144 mmol/L [facility] Urea nitrogen [Mass/Vol] 18 mg/dL 7 - 21 mg/dL [facility] FERRITIN BLDon 06-14-2021 Ferritin [Mass/Vol] 14.3 ng/mL Low 14.7-205.1 [facility] Comment on above: Order Comment: Speci men Type: BLOOD SPECIMENOrdering Facility: [facility] Address: [address] [place] [address] Performed By: #### F ERR, IRON ####[facility] LABIA [id number] [place] [address] [place] IRON + TIBCon 06-14-2021 Iron [Mass/Vol] 16 ug/dL Low 41-186 [facility] Comment on above: Order Comment: Speci men Type: BLOOD SPECIMENOrdering Facility: [facility] Address: [address] [place] [address] Performed By: #### F ERR, IRON ####[facility] LABCLIA [id number] [place] [address] [place] Iron binding capacity [Mass/Vol] 438 ug/dL High 232-386 [facility] Comment on above: Order Comment: Speci men Type: BLOOD SPECIMENOrdering Facility: [facility] Address: [address] [place], [place] [address] Performed By: #### F ERR, IRON ####[facility] LABCLIA [id number] [address] [place] [facility] Iron/TIBC [Molar ratio] 4 % Low 15-57 [facility] Comment on above: Order Comment: Speci men Type: BLOOD SPECIMENOrdering Facility: [facility] Address: [address] [place], [place] [id number] Performed By: #### F ERR, IRON ####[facility] LABCLIA [id number] [address] [place] RETIC COUNTon 06-14-2021 Reticulocytes (Bld) [#/Vol] 0.73618 10*3/uL 0.018 - 0.100 M/uL [facility] Retics #on 06-14-2021 Reticulocytes (Bld) [#/Vol] 0.71663 10*3/uL Normal 0.018-0.100 [facility] Comment on above: Order Comment: Speci men Type: BLOOD SPECIMENOrdering Facility: [facility] Address: [address] [place], [place] [address] Performed By: #### 1 4196-0, 92862-1 ####[facility] LABCLIA [id number] [place] [address] Reticulocytes (Bld) [#/Vol]o n 06-14-2021 Reticulocytes/100 RBC (Bld) 1.3 % Normal 0.4-2.0 [facility] Comment on above: Order Comment: Speci men Type: BLOOD SPECIMENOrdering Facility: [facility] Address: [address] [place], [place] [address] Performed By: #### 1 4196-0, 20761-3 ####[facility] LABCLIA [id number] [place] [address] Reticulocytes/100 RBC (Bld) 1.3 % 0.4 - 2.0 % [facility] Vital Signs Date Time Vital Sign Value Performing Clinician Facility 09-10-2023 14:30-0400 Body height 140.97 cm [facility] 09-10-2023 14:30-0400 Body mass index (BMI) [Ratio] 22.8 kg/m2 [facility] 09-10-2023 14:30-0400 Body weight 45.52 kg [facility] 09-10-2023 14:30-0400 Diastolic blood pressure 79 mm[Hg] [facility] 09-10-2023 14:30-0400 Heart rate 70 /min [facility] 09-10-2023 14:30-0400 Respiratory rate 12 /min [facility] 09-10-2023 14:30-0400 Systolic blood pressure 133 mm[Hg] [facility] 08-09-2023 15:17-0400 Body height 140.97 cm DO Erik Ball Work Phone: [facility] 08-09-2023 15:17-0400 Body mass index (BMI) [Ratio] 22.8 kg/m2 DO Erik Ball Work Phone: [facility] 08-09-2023 15:17-0400 Body weight 45.35 kg DO Erik Ball Work Phone: [facility] 06-18-2023 13:23-0400 Body height 140.97 cm DO Erik Ball Work Phone: [facility] 06-18-2023 13:23-0400 Body mass index (BMI) [Ratio] 22.9 kg/m2 DO Erik Ball Work Phone: [facility] 06-18-2023 13:23-0400 Body weight 45.58 kg DO Erik Ball Work Phone: [facility] 06-18-2023 13:23-0400 Diastolic blood pressure 90 mm[Hg] DO Erik Ball Work Phone: [facility] 06-18-2023 13:23-0400 Heart rate 69 /min DO Erik Ball Work Phone: [facility] 06-18-2023 13:23-0400 Respiratory rate 12 /min DO Erik Ball Work Phone: [facility] 06-18-2023 13:23-0400 Systolic blood pressure 152 mm[Hg] DO Erik Ball Work Phone: [facility] 05-18-2023 10:10-0400 Body height 140.97 cm DO Erik Ball Work Phone: [facility] 05-18-2023 10:10-0400 Body mass index (BMI) [Ratio] 23 kg/m2 DO Erik Ball Work Phone: [facility] 05-18-2023 10:10-0400 Body weight 45.81 kg DO Erik Ball Work Phone: [facility] 05-18-2023 10:10-0400 Diastolic blood pressure 87 mm[Hg] DO Erik Ball Work Phone: [facility] 05-18-2023 10:10-0400 Heart rate 73 /min DO Erik Ball Work Phone: [facility] 05-18-2023 10:10-0400 Respiratory rate 12 /min DO Erik Ball Work Phone: [facility] 05-18-2023 10:10-0400 Systolic blood pressure 134 mm[Hg] DO Erik Ball Work Phone: [facility] 05-11-2023 13:50-0500 Body height 140.97 cm DO Erik Ball Work Phone: [facility] 05-11-2023 13:50-0500 Body mass index (BMI) [Ratio] 23.3 kg/m2 DO Erik Ball Work Phone: [facility] 05-11-2023 13:50-0500 Body weight 46.26 kg DO Erik Ball Work Phone: [facility] 05-11-2023 13:50-0500 Diastolic blood pressure 84 mm[Hg] DO Erik Ball Work Phone: [facility] 05-11-2023 13:50-0500 Systolic blood pressure 122 mm[Hg] DO Erik Ball Work Phone: [facility] 02-19-2023 13:30-0500 Body height 140.97 cm Erik Ball Other [employer] Other 02-19-2023 13:30-0500 Body mass index (BMI) [Ratio] 23.42 kg/m2 Erik Ball Other [employer] Other 02-19-2023 13:30-0500 Body weight 46.54 kg Erik Ball Other [employer] Other 02-19-2023 13:30-0500 Diastolic blood pressure 84 mm[Hg] Erik Ball Other [employer] Other 02-19-2023 13:30-0500 Respiratory rate 12 /min Erik Ball Other [employer] Other 02-19-2023 13:30-0500 Systolic blood pressure 130 mm[Hg] Erik Ball Other [employer] Other 01-31-2023 14:15-0500 Body height 140.97 cm Erik Ball Other [employer] Other 01-31-2023 14:15-0500 Body mass index (BMI) [Ratio] 23.14 kg/m2 Erik Ball Other [employer] Other 01-31-2023 14:15-0500 Body weight 46 kg Erik Ball Other [employer] Other 01-31-2023 14:15-0500 Diastolic blood pressure 92 mm[Hg] Erik Ball Other [employer] Other 01-31-2023 14:15-0500 Respiratory rate 12 /min Erik Ball Other [employer] Other 01-31-2023 14:15-0500 Systolic blood pressure 150 mm[Hg] Erik Ball Other [employer] Other 10-30-2022 14:30-0400 Body height 140.97 cm Erik Ball Other [employer] Other 10-30-2022 14:30-0400 Body mass index (BMI) [Ratio] 23.64 kg/m2 Erik Ball Other [employer] Other 10-30-2022 14:30-0400 Body weight 46.99 kg Erik Ball Other [employer] Other 10-30-2022 14:30-0400 Diastolic blood pressure 77 mm[Hg] Erik Ball Other [employer] Other 10-30-2022 14:30-0400 Respiratory rate 12 /min Erik Ball Other [employer] Other 10-30-2022 14:30-0400 Systolic blood pressure 122 mm[Hg] Erik Ball Other [employer] Other 08-30-2022 11:45-0400 Body height 140.97 cm Erik Ball Other [employer] Other 08-30-2022 11:45-0400 Body mass index (BMI) [Ratio] 22.91 kg/m2 Erik Ball Other [employer] Other 08-30-2022 11:45-0400 Body weight 45.54 kg Erik Ball Other [employer] Other 08-30-2022 11:45-0400 Diastolic blood pressure 88 mm[Hg] Erik Ball Other [employer] Other 08-30-2022 11:45-0400 Respiratory rate 12 /min Erik Ball Other [employer] Other 08-30-2022 11:45-0400 Systolic blood pressure 135 mm[Hg] Erik Ball Other [employer] Other 05-12-2022 13:30-0500 Body height 140.97 cm Erik Ball Other [employer] Other 05-12-2022 13:30-0500 Body mass index (BMI) [Ratio] 23.96 kg/m2 Erik Ball Other [employer] Other 05-12-2022 13:30-0500 Body weight 47.63 kg Erik Ball Other [employer] Other 05-12-2022 13:30-0500 Diastolic blood pressure 73 mm[Hg] Erik Ball Other [employer] Other 05-12-2022 13:30-0500 Systolic blood pressure 132 mm[Hg] Erik Ball Other [employer] Other 11-16-2021 10:58-0400 Body height 151.1 cm Fiorella Lisa PA-C Work Phone: [facility] 11-16-2021 10:58-0400 Body temperature 97.81 [degF] Fiorella Lisa PA-C Work Phone: [facility] 11-16-2021 10:58-0400 Body weight 48.99 kg Fiorella Lisa PA-C Work Phone: [facility] 11-16-2021 10:58-0400 Diastolic blood pressure 86 mm[Hg] Fiorella Lisa PA-C Work Phone: [facility] 11-16-2021 10:58-0400 Heart rate 74 /min Fiorella Lisa PA-C Work Phone: [facility] 11-16-2021 10:58-0400 Respiratory rate 16 /min Fiorella Lisa PA-C Work Phone: [facility] 11-16-2021 10:58-0400 SaO2% (BldA) [Mass fraction] 99 % Fiorella Lisa PA-C Work Phone: [facility] 11-16-2021 10:58-0400 Systolic blood pressure 143 mm[Hg] Fiorella Lisa PA-C Work Phone: [facility] 09-26-2021 13:25-0400 Body height 151.1 cm Binh Hernandez MD Work Phone: [facility] 09-26-2021 13:25-0400 Body temperature 97.9 [degF] Binh Hernandez MD Work Phone: [facility] 09-26-2021 13:25-0400 Body weight 49.44 kg Binh Hernandez MD Work Phone: [facility] 09-26-2021 13:25-0400 Diastolic blood pressure 65 mm[Hg] Binh Hernandez MD Work Phone: [facility] 09-26-2021 13:25-0400 Heart rate 64 /min Binh Hernandez MD Work Phone: [facility] 09-26-2021 13:25-0400 Respiratory rate 16 /min Binh Hernandez MD Work Phone: [facility] 09-26-2021 13:25-0400 SaO2% (BldA) [Mass fraction] 99 % Binh Hernandez MD Work Phone: [facility] 09-26-2021 13:25-0400 Systolic blood pressure 134 mm[Hg] Binh Hernandez MD Work Phone: [facility] 08-22-2021 11:00-0400 Body temperature 96.69 [degF] Chair [place] Work Phone: [facility] 08-22-2021 11:00-0400 Diastolic blood pressure 58 mm[Hg] Chair [place] Work Phone: [facility] 08-22-2021 11:00-0400 Heart rate 70 /min Chair [place] Work Phone: [facility] 08-22-2021 11:00-0400 Respiratory rate 18 /min Chair [place] Work Phone: [facility] 08-22-2021 11:00-0400 SaO2% (BldA) [Mass fraction] 98 % Chair [place] Work Phone: [facility] 08-22-2021 11:00-0400 Systolic blood pressure 116 mm[Hg] Chair [place] Work Phone: [facility] 08-08-2021 13:29-0400 Diastolic blood pressure 75 mm[Hg] Chair Samuel Work Phone: [facility] 08-08-2021 13:29-0400 Heart rate 69 /min Chair [place] Work Phone: [facility] 08-08-2021 13:29-0400 Respiratory rate 18 /min Chair [place] Work Phone: [facility] 08-08-2021 13:29-0400 SaO2% (BldA) [Mass fraction] 98 % Chair Samuel Work Phone: [facility] 08-08-2021 13:29-0400 Systolic blood pressure 120 mm[Hg] Chair Samuel Work Phone: [facility] 08-08-2021 11:00-0400 Body temperature 97.5 [degF] Chair Samuel Work Phone: [facility] 07-26-2021 12:59-0400 Body height 151.1 cm Binh Hernandez MD Work Phone: [facility] 07-26-2021 12:59-0400 Body temperature 97.3 [degF] Binh Hernandez MD Work Phone: [facility] 07-26-2021 12:59-0400 Body weight 49.35 kg Binh Hernandez MD Work Phone: [facility] 07-26-2021 12:59-0400 Diastolic blood pressure 82 mm[Hg] Binh Hernandez MD Work Phone: [facility] 07-26-2021 12:59-0400 Heart rate 64 /min Binh Hernandez MD Work Phone: [facility] 07-26-2021 12:59-0400 Respiratory rate 16 /min Binh Hernandez MD Work Phone: [facility] 07-26-2021 12:59-0400 SaO2% (BldA) [Mass fraction] 99 % Binh Hernandez MD Work Phone: [facility] 07-26-2021 12:59-0400 Systolic blood pressure 113 mm[Hg] Binh Hernandez MD Work Phone: [facility] 06-14-2021 11:22-0400 Body height 151.1 cm Binh Hernandez MD Work Phone: [facility] 06-14-2021 11:22-0400 Body temperature 97 [degF] Binh Hernandez MD Work Phone: [facility] 06-14-2021 11:22-0400 Body weight 48.08 kg Binh Hernandez MD Work Phone: [facility] 06-14-2021 11:22-0400 Diastolic blood pressure 69 mm[Hg] Binh Hernandez MD Work Phone: [facility] 06-14-2021 11:22-0400 Heart rate 71 /min Binh Hernandez MD Work Phone: [facility] 06-14-2021 11:22-0400 Respiratory rate 16 /min Binh Hernandez MD Work Phone: [facility] 06-14-2021 11:22-0400 SaO2% (BldA) [Mass fraction] 90 % Binh Hernandez MD Work Phone: [facility] 06-14-2021 11:22-0400 Systolic blood pressure 126 mm[Hg] Binh Hernandez MD Work Phone: [facility] Encounters Encounter Date Encounter Type Care Provider Facility Start: 09-10-2023 End: 09-10-2023 ambulatory [facility] Work Phone: Start: 09-10-2023 End: 09-10-2023 Patient encounter procedure [facility] Physician [facility] Work Phone: Start: 09-03-2023 Non-patient / Non-visit [facility] Physician [facility] Work Phone: Start: 08-09-2023 End: 08-09-2023 ambulatory DO Erik Ball Work Phone: [facility] Work Phone: Start: 08-09-2023 End: 08-09-2023 Patient encounter procedure DO Erik Ball Work Phone: [facility] Physician [facility] Work Phone: Start: 06-18-2023 End: 06-18-2023 ambulatory DO Erik Ball Work Phone: [facility] Work Phone: Start: 06-18-2023 End: 06-18-2023 Patient encounter procedure DO Erik Ball Work Phone: [facility] Physician [facility] Work Phone: Start: 05-18-2023 End: 05-18-2023 ambulatory DO Erik Ball Work Phone: [facility] Work Phone: Start: 05-18-2023 End: 05-18-2023 Patient encounter procedure DO Erik Zimmerman Work Phone: [facility] Work Phone: Start: 05-11-2023 End: 05-11-2023 ambulatory Erik Zimmerman Facility:[facility] Start: 05-11-2023 End: 05-11-2023 Patient encounter procedure DO Erik Zimmerman Work Phone: [facility] Work Phone: Start: 04-18-2023 Non-patient / Non-visit DO Florian Zimmerman Work Phone: [facility] Physician [facility] Work Phone: Start: 03-28-2023 End: 03-28-2023 ambulatory Erik Zimmerman Other [employer] Other Start: 03-28-2023 Telephone encounter Erik Ball [facility] Start: 02-21-2023 End: 02-21-2023 ambulatory Erik Zimmerman Other [employer] Other Start: 02-21-2023 Telephone encounter Erik Zimmerman [facility] Start: 02-19-2023 End: 02-19-2023 ambulatory Erik Zimmerman Other [employer] Other Start: 02-19-2023 Patient encounter procedure Erik Zimmerman [facility] Start: 02-02-2023 End: 02-02-2023 ambulatory Erik Ball Other [employer] Other Start: 02-02-2023 Telephone encounter Erik Ball [facility] Start: 01-31-2023 End: 01-31-2023 ambulatory Erik Ball Other [employer] Other Start: 01-31-2023 Office outpatient vi sit 15 minutes Erik Zimmerman [facility] Start: 01-31-2023 Telephone encounter Erik Zimmerman [facility] Start: 10-31-2022 End: 10-31-2022 ambulatory Erik Zimmerman Other [employer] Other Start: 10-31-2022 Telephone encounter Erik Zimmerman [facility] Start: 10-30-2022 End: 10-30-2022 ambulatory Erik Zimmerman Other [employer] Other Start: 10-30-2022 Office outpatient vi sit 15 minutes Erik Zimmerman [facility] Start: 09-13-2022 End: 09-13-2022 ambulatory Erik Zimmerman Other [employer] Other Start: 09-13-2022 Telephone encounter Erik Zimmerman [facility] Start: 08-30-2022 End: 08-30-2022 ambulatory Erik Zimmerman Other [employer] Other Start: 08-30-2022 Office outpatient vi sit 25 minutes Erik Zimmerman [facility] Start: 08-14-2022 End: 08-15-2022 ambulatory Trudy Bridges MD Facility: [facility] Start: 08-08-[address] [facility] Start: 07-21-2022 End: 07-22-[address] ERIK ZIMMERMAN Facility:[facility] Start: 06-28-2022 End: 06-28-2022 ambulatory Erik Zimmerman Other [employer] Other Start: 06-28-2022 Telephone encounter Erik Zimmerman [facility] Start: 05-17-2022 End: 05-17-2022 ambulatory Erik Zimmerman Other [employer] Other Start: 05-17-2022 Telephone encounter Erik Zimmerman [facility] Start: 05-16-2022 End: 05-17-[address] ERIK ZIMMERMAN Facility:[facility] Start: 05-12-2022 End: 05-12-2022 ambulatory Erik Zimmerman Other [employer] Other Start: 05-12-2022 Office outpatient vi sit 15 minutes Erik Zimmerman [facility] Start: 03-31-2022 End: 03-31-2022 ambulatory Erik Zimmerman Other [employer] Other Start: 03-31-2022 Telephone encounter Erik Zimmerman [facility] Start: 03-20-2022 End: 03-20-[address] [...] encounter procedure Binh Hernandez MD Work Phone: [place] Start: 07-18-2021 Telephone encounter Charisma Henderson RN Hematology/Oncology Comment on above: Results; Appointment Start: 07-12-2021 End: 07-13-[address] ERIK ZIMMERMAN Facility: Start: 06-29-2021 End: 06-29-2021 ambulatory ERIK ZIMMERMAN Facility:[facility] Start: 06-24-2021 Telephone encounter Charisma Henderson RN Hematology/Oncology Comment on above: Appointment Start: 06-16-2021 Telephone encounter Dary Wayne [facility] Work Phone: [facility] HB-3 Comment on above: Medication Follow-up (Monoferric not covered - switched plan to Venfoer 300mg x3 weekly doses) Start: 06-14-2021 Telephone encounter Binh Hernandez MD Work Phone: [facility] Comment on above: Future Appointment Start: 06-14-2021 End: 06-14-2021 ambulatory Binh Hernandez MD Work Phone: Hematology/Oncology Comment on above: 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) Start: 06-14-2021 End: 06-14-2021 Patient encounter procedure Binh Hernandez MD Work Phone: [facility] Plan of Treatment Date Care Activity Detail Author Start: 11-16-2024 DIABETES SCREEN DIABETES SCREEN [facility] Start: 06-14-2024 DIABETES SCREEN DIABETES SCREEN [facility] Start: 05-11-2023 EKG 12 channel panel [facility] Start: 11-16-2021 End: 01-16-2022 Ferritin [Mass/volume] in Serum or Plasma [facility] Work Phone: Comment on above: Expected: 11/16/2021 , Expires: 01/16/2022 Start: 11-16-2021 End: 01-16-2022 Iron and Iron binding capacity panel - Serum or Plasma [facility] Work Phone: Comment on above: Expected: 11/16/2021 , Expires: 01/16/2022 Start: 11-07-2021 End: 01-07-2022 CBC W Auto Differential panel - Blood CBC + DIFF Lab Routine Iron deficiency anemia due to chronic blood loss Expected: 11/07/2021 (Approximate), Expires: 01/07/2022 [facility] Work Phone: Comment on above: Expected: 11/07/2021 (Approximate), Expires: 01/07/2022 Start: 11-07-2021 End: 01-07-2022 Ferritin [Mass/volume] in Serum or Plasma FERRITIN BLD Lab Routine Iron deficiency anemia due to chronic blood loss Expected: 11/07/2021 (Approximate), Expires: 01/07/2022 [facility] Work Phone: Comment on above: Expected: 11/07/2021 (Approximate), Expires: 01/07/2022 Start: 11-07-2021 End: 01-07-2022 Iron and Iron binding capacity panel - Serum or Plasma IRON + TIBC Lab Routine Iron deficiency anemia due to chronic blood loss Expected: 11/07/2021 (Approximate), Expires: 01/07/2022 [facility] Work Phone: Comment on above: Expected: 11/07/2021 (Approximate), Expires: 01/07/2022 Start: 11-03-2021 Influenza vaccination INFLUENZA (#1) [facility] Start: 09-26-2021 End: 11-26-2021 Ferritin [Mass/volume] in Serum or Plasma [facility] Work Phone: Comment on above: Expected: 09/26/2021 , Expires: 11/26/2021 Start: 09-26-2021 End: 11-26-2021 Iron and Iron binding capacity panel - Serum or Plasma [facility] Work Phone: Comment on above: Expected: 09/26/2021 , Expires: 11/26/2021 Start: 07-26-2021 End: 09-25-2021 CBC W Auto Differential panel - Blood CBC + DIFF Lab Routine Iron deficiency anemia due to chronic blood loss Expected: 07/26/2021 (Approximate), Expires: 09/25/2021 [facility] Work Phone: Comment on above: Expected: 07/26/2021 (Approximate), Expires: 09/25/2021 Start: 07-26-2021 End: 09-25-2021 FERRITIN BLD FERRITIN BLD Lab Routine Iron deficiency anemia due to chronic blood loss Expected: 07/26/2021 (Approximate), Expires: 09/25/2021 [facility] Work Phone: Comment on above: Expected: 07/26/2021 (Approximate), Expires: 09/25/2021 Start: 07-26-2021 End: 09-25-2021 IRON + TIBC IRON + TIBC Lab Routine Iron deficiency anemia due to chronic blood loss Expected: 07/26/2021 (Approximate), Expires: 09/25/2021 [facility] Work Phone: Comment on above: Expected: 07/26/2021 (Approximate), Expires: 09/25/2021 Start: 06-13-2021 End: 08-13-2021 FERRITIN BLD FERRITIN BLD Lab Routine Iron deficiency anemia due to chronic blood loss Expected: 06/13/2021, Expires: 08/13/2021 [facility] Work Phone: Comment on above: Expected: 06/13/2021 , Expires: 08/13/2021 Start: 06-13-2021 End: 08-13-2021 IRON + TIBC IRON + TIBC Lab Routine Iron deficiency anemia due to chronic blood loss Expected: 06/13/2021, Expires: 08/13/2021 [facility] Work Phone: Comment on above: Expected: 06/13/2021 , Expires: 08/13/2021 Start: 03-05-2021 ADVANCE DIRECTIVE DISCUSSION ADVANCE DIRECTIVE DISCUSSION [facility] Start: 1998 BONE DENSITY BONE DENSITY [facility] Start: 1998 PNEUMOCOCCAL: 65+ (1 - PCV) PNEUMOCOCCAL: 65+ (1 - PCV) [facility] Start: 1998 PNEUMOVAX AGE 65 AND OVER WITH 5YR LOOKBACK (#1) PNEUMOVAX AGE 65 AND OVER WITH 5YR LOOKBACK (#1) [facility] Start: 11-19-1983 SHINGRIX VACCINE (1 of 2) SHINGRIX VACCINE (1 of 2) [facility] Start: 1952 Urine microalbumin profile DTAP,TDAP,TD (1 - Tdap) [facility] Bacteria identified in Urine by Culture [facility] FERRITIN BLD FERRITIN BLD Lab Routine Iron deficiency anemia due to chronic blood loss 06/14/2021 11:00 AM EDT [facility] Work Phone: IRON + TIBC IRON + TIBC Lab Routine Iron deficiency anemia due to chronic blood loss 06/14/2021 11:00 AM EDT [facility] Work Phone: US.doppler Carotid arteries - bilateral [facility] Immunizations Immunization Date Immunization Notes Care Provider Jon ring 08-09-2023 tetanus toxoid, reduced diphtheria toxoid, and acellular pertussis vaccine, adsorbed DO Erik Zimmerman Work Phone: [facility] 12-21-2022 COVID-19 (PFIZER) 12Y and older DO Erik Zimmerman Work Phone: [facility] 11-25-2022 Influenza vaccine, quadrivalent, adjuvanted DO Erik Zimmerman Work Phone: [facility] 11-25-2022 influenza virus vaccine, unspecified formulation DO Erik Zimmerman Work Phone: [facility] 11-25-2022 influenza, high dose seasonal, preservative-free Erik Zimmerman Other [facility] [employer] Other 04-10-2022 zoster vaccine recombinant DO Erik Zimmerman Work Phone: [facility] 01-11-2022 COVID-19 mRNA Bivale nt Booster (Pfizer) DO Erik Zimmerman Work Phone: [facility] 12-13-2021 Seasonal trivalent influenza vaccine, adjuvanted, preservative free DO Erik Zimmerman Work Phone: [facility] 08-31-2021 Prevnar 20 Erik Zimmerman Other [facility] 06-27-2021 COVID-19 vaccine, ag e 12+ yr ([employer]-BIONTECH - [facility]) Binh Hernandez MD Work Phone: [facility] 12-04-2020 influenza virus vaccine, split virus (incl. purified surface antigen) Erik Zimmerman Other [facility] [employer] Other 12-04-2020 influenza virus vaccine, unspecified formulation DO Erik Zimmerman Work Phone: [facility] 12-04-2020 Seasonal trivalent influenza vaccine, adjuvanted, preservative free Binh Hernandez MD Work Phone: [facility] 11-29-2020 COVID-19 vaccine, ag e 12+ yr ([employer] - [facility]) Binh Hernandez MD Work Phone: [facility] 04-24-2020 COVID-19 vaccine, ag e 12+ yr (PFIZER-BIONTECH - PURPLE TOP) Binh Hernandez MD Work Phone: [facility] 04-03-2020 COVID-19 vaccine, ag e 12+ yr ([employer] - [facility]) Binh Hernandez MD Work Phone: [facility] 11-24-2019 influenza virus vaccine, split virus (incl. purified surface antigen) Erik Zimmerman Other [facility] [employer] Other 11-24-2019 influenza virus vaccine, unspecified formulation DO Erik Zimmerman Work Phone: [facility] 11-24-2019 Seasonal trivalent influenza vaccine, adjuvanted, preservative free Binh Hernandez MD Work Phone: [facility] 01-14-2019 influenza virus vaccine, split virus (incl. purified surface antigen) Erik Zimmerman Other [facility] [employer] Other 01-14-2019 influenza virus vaccine, unspecified formulation DO Erik Zimmerman Work Phone: [facility] 12-25-2017 Seasonal trivalent influenza vaccine, adjuvanted, preservative free Binh Hernandez MD Work Phone: [facility] 12-12-2017 influenza virus vaccine, split virus (incl. purified surface antigen) Erik Zimmerman Other [facility] [employer] Other 12-12-2017 influenza virus vaccine, unspecified formulation DO Erik Zimmerman Work Phone: [facility] 12-22-2016 influenza virus vaccine, split virus (incl. purified surface antigen) Erik Zimmerman Other [facility] [employer] Other 12-22-2016 influenza virus vaccine, unspecified formulation DO Erik Zimmerman Work Phone: [facility] 12-22-2016 influenza, high dose seasonal, preservative-free Binh Hernandez MD Work Phone: [facility] 12-13-2015 influenza virus vaccine, split virus (incl. purified surface antigen) Erik Zimmerman Other [facility] [employer] Other 12-13-2015 influenza virus vaccine, unspecified formulation DO Erik Zimmerman Work Phone: [facility] 12-13-2015 influenza, high dose seasonal, preservative-free Binh Hernandez MD Work Phone: [facility] 01-04-2015 pneumococcal conjuga te vaccine, 13 valent Erik Zimmerman Other [facility] 12-03-2014 influenza virus vaccine, split virus (incl. purified surface antigen) Erik Zimmerman Other [employer] Other 12-03-2014 influenza virus vaccine, unspecified formulation DO Erik Zimmerman Work Phone: [facility] 12-10-2013 tetanus and diphther ia toxoids, adsorbed, preservative free, for adult use (5 Lf of tetanus toxoid and 2 Lf of diphtheria toxoid) Erik Zimmerman Other [facility] 12-26-2012 influenza, seasonal, injectable Binh Hernandez MD Work Phone: [facility] 12-17-2012 tetanus and diphther ia toxoids, adsorbed, preservative free, for adult use (5 Lf of tetanus toxoid and 2 Lf of diphtheria toxoid) Erik Zimmerman Other [facility] Payers Date Payer Category Payer Self-pay 2023 Unknown [id number] 2019 Private Health Insurance [employer] A ETNA MEDICARE SUPPLEMENT [id number] 2019-Present [phone] [address] [address] [place] [address] Indemnity [id number] 2019 Private Health Insurance [id number] 1998 Medicare MEDICARE MEDICAR E A AND B [id number] 1998-Present [phone] [address] [address] [place] [address] Medicare [id number] 1998 Medicare [id number] 1959 Medicare [id number] 1959 Medicare [id number] 1933 Unknown [id number] [id number]. 2.59 1933 Unknown [id number] 2.16.840.1.329010.3.579. 2.593 1933 Unknown [id number] 2.16.840.1.376605.3.579. 2.593 1933 Unknown [id number] 2.16.840.1.871854.3.579. 2.593 1933 Unknown [id number] 2.16.840.1.651817.3.579. 2.593 1933 Unknown [id number] 2.16.840.1.664179.3.579. 2.593 1933 Unknown [id number] 2.16.840.1.630488.3.579. 2.593 1933 Unknown [id number] 2.16.840.1.321665.3.579. 2.593 1933 Unknown [id number] 2.16.840.1.769187.3.579. 2.593 1933 Unknown [id number] 2.16.840.1.160002.3.579. 2.593 1933 Unknown [id number] 2.16.840.1.828395.3.579. 2.593 1933 Unknown [id number] 2.16.840.1.734399.3.579. 2.196 1933 Unknown [id number] 2..[id number]. 2.196 Private Health Insurance [employer] [id number] Unknown [id number] Unknown [id number]. 2.531 Social History Date Type Detail Facility Start: 11-25-2013 End: 08-09-2023 Tobacco smoking status NHIS Never smoked tobacco [facility] Start: 06-14-2021 End: 11-16-2021 Alcohol intake Current drinker of alcohol (finding) [facility] Start: 11-25-2013 History SDOH Alcohol Comment wine daily [facility] Start: 1935 Sex Assigned At Not on file C [facility] Start: 06-04-2021 End: 11-16-2021 Exposure to SARS-CoV-2 (event) Not sure [facility] Start: 11-16-2021 Tobacco use and exposure Smokeless tobacco non-user [facility] Sex Assigned At Sex Assigned At [facility] [employer] Other Start: 1935 Sex Assigned At Female F [facility] Clinical Notes 06-14-2021 to 03-28-2023 Note Date & Type Note Facility 03-28-2023 Evaluation note Encounter Date Diagnosis Assessment Notes Mar, Vitamin D deficiency (ICD-10 - E55.9) Mar, Age-related osteoporosis with current pathological fracture with routine healing, subsequent encounter (ICD-10 - M80.00XD) [employer] Other [id number] Evaluation note* Encounter Date Diagnosis Assessment Notes [...] in bowel habits No melena or hematochezia [employer] Other 11-29-2023 Evaluation note* Encounter Date Diagnosis [...] goal < 135/85 _update in couple days [employer] Other 11-29-2023 Evaluation note* Encounter Date Diagnosis Assessment Notes Treatment Notes Treatment Clinical Notes Jan, Chest wall pain (ICD-10 - R07.89) [employer] Other 08-28-2023 Evaluation note* Encounter Date Diagnosis [...] and may have experienced an adverse reaction [employer] Other 06-28-2023 Evaluation note* Encounter Date Diagnosis [...] anxiety contributes. 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 Checking B12, Fe, and Thyroid studies Aug, Anemia in other chronic diseases classified elsewhere (ICD-10 - D63.8) Hx of anemia of unknown etiology. Fe transiently low and replaced w/ IV Fe infusion. Recent Hgb have been normal. No obvious s/s bleeding [employer] Other 04-26-2023 Evaluation note* Encounter Date Diagnosis Assessment Notes Treatment Notes Treatment Clinical Notes Jun, Kyphoscoliosis deformity of spine (ICD-10 - M41.9) Jun, Lumbar spondylosis (ICD-10 - M47.816) [employer] Other 03-10-2023 Evaluation note* Encounter Date Diagnosis [...] May, Other chronic pain (ICD-10 - G89.29) [employer] Other 09-15-2022 Miscellaneous Notes* Telephone Encounter - [...] labs to Dr. Zimmerman. documented in this encounterMadison Health09-14-2022 Miscellaneous Notes* Telephone Encounter - Jewel Richardson [...] office. Fiorella Gonzalez PA-C documented in this encounterMadison Health09-14-2022 NoteHNO ID: [id number] Author: Fiorella Gonzalez PA-C Service: ? Author Type: Physician Pearl Fisherman Type: Progress Notes Filed: 11/16/2021 11:43 AM [...] her again. Fiorella Gonzalez PA-C CC: [facility]erman[facility] History of Present illness Narrative* Fiorella Gonzalez [...] PA-C CC: Erik Zimmerman documented in this encounterMadison Health07-25-2022 NoteHNO ID: [id number] Author: Binh Hernandez MD Service: ? Author [...] which included preparing to see the patient, [id number] patient care, completing clinical documentation, obtaining and/or reviewing separately obtained history, performing a medically appropriate examination, counseling and educating the patient/family/caregiver, ordering medications, tests, or procedures, independently interpreting results (not separately reported) and communicating results to the patient/family/caregiver. CC: Erik ZimmermanSelect [facility] History of Present illness Narrative* Binh Hernandez [...] which included preparing to see the patient, [id number] patient care, completing clinical documentation, obtaining and/or reviewing separately obtained history, performing a medically appropriate examination, counseling and educating the pat ient/family/caregiver, ordering medications, tests, or procedures, independently interpreting results (not separately reported) and communicating results to the patient/family/caregiver. CC: Erik Zimmerman documented in this encounterMadison Health06-20-2022 NoteHNO ID: [id number] Author: Angeles Moss RN Service: ? Author Type: Registered Nurse Type: Progress Notes Filed: 08/22/2021 1:19 PM Note Text: .[facility] History of Present illness Narrative* Angeles Moss RN - 08/22/2021 11:15 AM EDT . documented in this encounterMadison Health05-24-2022 NoteHNO ID: [id number] Author: Binh Hernandez MD Service: ? Author [...] which included preparing to see the patient, [id number] patient care, completing clinical documentation, obtaining and/or reviewing separately obtained history, performing a medically appropriate examination, counseling and educating the patient/family/caregiver, ordering medications, tests, or procedures, independently interpreting results (not separately reported) and communicating results to the patient/family/caregiver. CC: Erik ZimmermanSelect [facility] History of Present illness Narrative* Binh Hernandez [...] which included preparing to see the patient, [id number]-rr-vqgh patient care, completing clinical documentation, obtaining and/or reviewing separately obtained history, performing a medically appropriate examination, counseling and educating the pat ient/family/caregiver, ordering medications, tests, or procedures, independently interpreting results (not separately reported) and communicating results to the patient/family/caregiver. CC: Erik Zimmerman documented in this encounterMadison Health05-16-2022 Miscellaneous Notes* Telephone Encounter - Sade Arndt [...] you. Charisma Henderson RN documented in this encounterMadison Health04-22-2022 Miscellaneous Notes* Telephone Encounter - Charisma Henderson [...] advise. Charisma Henderson RN documented in this encounterMadison Health04-14-2022 Miscellaneous Notes* Telephone Encounter - Jovita Ghotra Pss - 06/16/2021 2:02 PM EDT Herrera Ramos spoke with H[facility]. She states they have received patient records/referral and have patient scheduled to see Dr Espana on 09/01 @ 1:45. Jovita Ghtora Pss * Telephone Encounter - Devi Elian Lawrence [facility] - 06/14/2021 1:14 PM EDT Records [...] your mailbox. Thank you documented in this encounterMadison Health04-12-2022 NoteHNO ID: [id number] Author: Binh Hernandez MD Service: ? Author [...] which included preparing to see the patient, [id number] patient care, completing clinical documentation, obtaining and/or reviewing separately obtained history, performing a medically appropriate examination, counseling and educating the patient/family/caregiver, ordering medications, tests, or procedures, independently interpreting results (not separately reported) and communicating results to the patient/family/caregiver. CC: Erik ZimmermanSelect [facility]04-12-2022 History of Present illness Narrative* Binh Hernandez [...] which included preparing to see the patient, wmkz-cr-[id number] patient care, completing clinical documentation, obtaining and/or reviewing separately obtained history, performing a medically appropriate examination, counseling and educating the pat ient/family/caregiver, ordering medications, tests, or procedures, independently interpreting results (not separately reported) and communicating results to the patient/family/caregiver. CC: Erik Zimmerman documented in [facility]UC [facility]* Diagnosis Iron deficiency anemia due to chronic blood loss- Primary Iron deficiency anemia secondary to blood loss (chronic) documented in this encounter [facility]* Diagnosis Iron deficiency anemia due to chronic blood loss- Primary Iron deficiency anemia secondary to blood loss (chronic) [facility] Diagnosis Iron deficiency anemia due to chronic blood loss- Primary Iron deficiency anemia secondary to blood loss (chronic) documented in this encounter [facility]* Diagnosis Iron deficiency anemia due to chronic blood loss- Primary Iron deficiency anemia secondary to blood loss (chronic) documented in this encounter [facility]* Diagnosis Iron deficiency anemia due to chronic blood loss- Primary Iron deficiency anemia secondary to blood loss (chronic) documented in this encounter [facility] noteNo Push [employer]Blue [employer] Other Evaluation note* Diagnosis Onset Date Resolution Status Essential hypertension acute CAREY (generalized anxiety disorder) acute Palpitation acute Cerumen impaction noneactive [facility] Work Phone: Evaluation note* Diagnosis Onset Date Resolution Status Essential hypertension acute CAREY (generalized anxiety disorder) acute Palpitation acute Cerumen impaction noneactive Occlusion of left carotid artery acute Palpitation acute Cerumen impaction noneactive Decreased hearing of both ears noneactive Essential hypertension acute CAREY (generalized anxiety disorder) acute Occlusion of left carotid artery acute Palpitation acute Fatigue noneactive Anemia noneactive [facility] Work Phone: Evaluation note* Diagnosis Onset [...] bite of left lower leg a cute [facility] Work Phone: Evaluation note* Diagnosis Onset Date Resolution Status Essential hypertension acute CAREY (generalized anxiety disorder) acute Occlusion of left carotid artery acute Palpitation acute Fatigue noneactive Anemia noneactive Dog bite of left lower leg a cute Essential hypertension acute CAREY (generalized anxiety disorder) acute Occlusion of left carotid artery acute Palpitation acute Anemia noneactive [facility] Work Phone: History general Narrative - Reported* Type Description Date Surgical History appendectomy [employer] Other History general Narrative - Reported* Type [...] BUNIONECTOMY 2019 Hospitalization History SEE SURGICAL HX [employer] Other Reason for referral (narrative)* Reason Referral for pain ma nagement Diagnosis 1 Kyphoscoliosis defor mity of spine (M41.9) Diagnosis 2 Lumbar spondylosis ( M47.816) Referral Organization [facility] caroline Referring Provider First Name Erik Referring Provider Last Name Obdulio Referring Provider Specialty Internal Me dicine Referred Organization [facility] Referred Provider Mirian Maldonado Referred Address [address], [place],[address] Referred Provider Specialty Pain Medicin e Referral Priority Routine General Notes 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 She has daily pain, moderate in intensity, which interferes with activities of daily living. Clinical Notes XR lumbar spine and B/L hips to be included w/ referral. [employer] Other Reason for Referral Specialty Diagnoses / Procedures Referred By Juanpablo damian Referred To Contact Gastroenterology Diagnoses Iron deficiency anemia due to chronic blood loss Procedures CONSULT TO GASTROENTEROLOGY OFFICE/OUTPATIENT [facility] 60-74 MINUTES Binh Hernandez MD [address] [place] [address] [place] [address] Referral ID Status Reason Start Date Expiration Date Visits Requested Visits Authorized [id number] Authorized PCP Requested Referral 06/14/2021 06/14/2022 1 [...] or prosecute any alcohol or drug abuse patient.Madison HealthIn the event this information is protected by the Federal Confidentiality of Alcohol and Drug Abuse Patient Records regulations: The Federal rules restrict any use of the information to criminally investigate or prosecute any alcohol or drug abuse patient.Madison HealthIn the event this information is protected by the Federal Confidentiality of Alcohol and Drug Abuse Patient Records regulations: The Federal rules restrict any use of the information to criminally investigate or prosecute any alcohol or drug abuse patient.Madison HealthIn the event this information is protected by the Federal Confidentiality of Alcohol and Drug Abuse Patient Records regulations: The Federal rules restrict any use of the information to criminally investigate or prosecute any alcohol or drug abuse patient.Madison HealthIn the event this information is protected by the Federal Confidentiality of Alcohol and Drug Abuse Patient Records regulations: The Federal rules restrict any use of the information to criminally investigate or prosecute any alcohol or drug abuse patient.Madison HealthIn the event this information is protected by the Federal Confidentiality of Alcohol and Drug Abuse Patient Records regulations: The Federal rules restrict any use of the information to criminally investigate or prosecute any alcohol or drug abuse patient.Madison HealthIn the event this information is protected by the Federal Confidentiality of Alcohol and Drug Abuse Patient Records regulations: The Federal rules restrict any use of the information to criminally investigate or prosecute any alcohol or drug abuse patient.Madison HealthIn the event this information is protected by the Federal Confidentiality of Alcohol and Drug Abuse Patient Records regulations: The Federal rules restrict any use of the information to criminally investigate or prosecute any alcohol or drug abuse patient.Madison HealthIn the event this information is protected by the Federal Confidentiality of Alcohol and Drug Abuse Patient Records regulations: The Federal rules restrict any use of the information to criminally investigate or prosecute any alcohol or drug abuse patient.Madison HealthIn the event this information is protected by the Federal Confidentiality of Alcohol and Drug Abuse Patient Records regulations: The Federal rules restrict any use of the information to criminally investigate or prosecute any alcohol or drug abuse patient.Madison HealthIn the event this information is protected by the Federal Confidentiality of Alcohol and Drug Abuse Patient Records regulations: The Federal rules restrict any use of the information to criminally investigate or prosecute any alcohol or drug abuse patient.Madison HealthIn the event this information is protected by the Federal Confidentiality of Alcohol and Drug Abuse Patient Records regulations: The Federal rules restrict any use of the information to criminally investigate or prosecute any alcohol or drug abuse patient.[facility] Reason for Visit (unrecogniz ed section and [...] PER 1 MG Binh Hernandez MD [address] [place] [address] Fernando Treat [facility] [address] [place] [address] Referral ID Status Reason Start Date Expiration Date V isits Requested Visits Authorized [id number] Authorized 06/15/2021 03/04/2022 99 99 Reason Comments [...] End: August 09, 2023 Devi Mills APRN EXTRUSION PROCESS OPERATOR-C Attending Provider Act corinne Start: August 09, 2023 End: August 09, 2023 Etl Application Developer Relationship Specialty Start Date End Date Erik Zimmerman DO PCP - General Internal Medicine 11/17/13 Etl Application Developer Relationship Specialty Start Date End Date Erik Zimmerman, DO PCP - General Internal Medicine 11/17/13 Etl Application Developer Relationship Specialty Start Date End Date Erik Zimmerman, DO PCP - General Internal Medicine 11/17/13 Etl Application Developer Relationship Specialty Start Date End Date Erik Zimmerman, DO PCP - General Internal Medicine 11/17/13 Etl Application Developer Relationship Specialty Start Date End Date Erik Zimmerman, DO PCP - General Internal Medicine 11/17/13 Etl Application Developer Relationship Specialty Start Date End Date Erik Zimmerman, DO PCP - General Internal Medicine 11/17/13 Etl Application Developer Relationship Specialty Start Date End Date Obdulio Erik Anderson, DO PCP - General Internal Medicine 11/17/13 Etl Application Developer Relationship Specialty Start Date End Date Erik Zimmerman, DO PCP - General Internal Medicine 11/17/13 Etl Application Developer Relationship Specialty Start Date End Date Erik [...] section and content) DATE CREATED AUTHOR 11/30/2021 [facility] DATE CREATED AUTHOR AUTHOR'S ORGANIZ ATION 07/12/2022 [facility] DATE CREATED AUTHOR AUTHOR'S ORGANIZ ATION 10/24/2022 [facility] DATE CREATED AUTHOR AUTHOR'S ORLY AC 05/12/2023 [facility] Goals (unrecognized section and content) Goals [...] BE BASED ON THE PRIMARY CLINICAL RECORDS. [employer] [facility]. provides no warranty or guarantee of the accuracy or completeness of information in this document.
--- NOTE | 2023-10-28 21:13 | ECG_ITS ---
[facility] Test Date: 2023-10-28 Pat Name: NINA GEORGE Department: Room: - Gender: Female Hand Sole [employer]er: : 1935 Requested By: YURY MAK Order Number: [id number] Reading MD: YURY MAK Measurements Intervals [place] Rate: 69 P: 49 CA: 144 QRS: 54 QRSD: 84 T: -15 QT: 388 QTc: 406 Interpretive Statements 1100 Sinus rhythm 3434 Septal myocardial infarction, age undetermined [address] depression 4564 Twave abnormality, possible inferolateral ischemia 9150 abnormal ECG Compared to ECG 05/11/2023 14:32:18 No significant change Electronically Signed On 10-29-2023 6:55:56 EDT by YURY MAK
--- NOTE | 2023-10-28 21:15 | ED.GENADUL1 ---
HPI HPI - General Adult General Chief complaint: Extremity Problem, Nontraumatic Stated complaint: EXTREMITY Time Seen by Provider: 10/28/23 20:56 Mode of arrival: walk-in History of Present Illness HPI narrative: This 87-year-old female presents for evaluation of pain in her left inguinal area. She states the pain started around 6:30 PM after having dinner. She has recently been doing some work in her yard but denies any injury. She states the pain is there she denies any dysuria or constipation. The patient has a large healed incision in her left inguinal area that she states is from 1961 when she had a carotid surgery and they went through her groin to access her carotids. She states that they were unable to pass the catheter at that time and she started to have bleeding later that night and was taken back to the operating room and according to her they took out 3 blood clots that were the size of pretzel sticks. She she does not know why she had bleeding at that time besides the fact that she had had surgery in that area. She takes a daily baby aspirin and otherwise is not on any blood thinners. She denies any chest pain or shortness of breath. She denies any dizziness or syncope. She denies any nausea or vomiting. She has no lower extremity pain or swelling besides in the left inguinal area. Related Data Home Medications ?Medication ?Instructions ?Recorded ?Confirmed acetaminophen 650 mg 650 mg PO Q8H PRN pain 08/10/22 08/14/22 tablet,extended release (Tylenol Arthritis Pain) alprazolam 0.25 mg tablet (Xanax) 0.25 mg PO DAILY PRN anxiety 08/10/22 08/14/22 aspirin 325 mg tablet 325 mg PO DAILY 08/10/22 08/14/22 dorzolamide 22.3 mg-timolol 6.8 ophthalmic (eye) 08/10/22 mg/mL eye drops omeprazole 40 mg capsule,delayed mg 08/10/22 release Allergies Allergy/AdvReac Type Severity Reaction Status Date / Time prednisone Allergy Mild dyspnea Verified 10/28/23 21:14 Opioid HPI Opioid Management Most Recent Opioid Data: Last Pain Scale 5 10/28/23 22:08 Review of Systems ROS Status of ROS 10 or more systems reviewed and unremarkable except as noted in history and below [facility] Medical History (Updated 10/29/23 @ 01:49 by Abbie Guzmán MD) FH: carotid endarterectomy ?Z82.49 - Family history of ischemic heart disease and other diseases of the circulatory system (ICD-10) Upper back pain ?M54.9 - Dorsalgia, unspecified (ICD-10) Low back pain ?M54.50 - Low back pain, unspecified (ICD-10) TMJ (dislocation of temporomandibular joint) ?S03.00XA - Dislocation of jaw, unspecified side, initial encounter (ICD-10) Osteoarthritis ?M19.90 - Unspecified osteoarthritis, unspecified site (ICD-10) Anemia ?D64.9 - Anemia, unspecified (ICD-10) Glaucoma ?H40.9 - Unspecified glaucoma (ICD-10) Heartburn ?R12 - Heartburn (ICD-10) Acid reflux ?K21.9 - Gastro-esophageal reflux disease without esophagitis (ICD-10) Hypertension ?I10 - Essential (primary) hypertension (ICD-10) Angina at rest ?I20.8 - Other forms of angina pectoris (ICD-10) Surgical History (Updated 08/10/22 @ 10:37 by Dominique Haque) History of appendectomy ?Z90.49 - Acquired absence of other specified parts of digestive tract (ICD-10) Social History Smoking status: Never smoker Exam Narrative Exam Narrative: Vital signs and Nursing Notes reviewed: Patient is afebrile with a normal pulse, blood pressure is elevated at 163/101, she is not hypoxic with pulse ox of 97% on room air General: Awake, alert, oriented, thin elderly female, no respiratory distress HEENT: Normocephalic atraumatic, mucous membranes are moist and pink, eyes are clear, normal conjunctiva, vision is grossly intact Neck: Supple, no meningeal signs, no anterior or posterior cervical lymphadenopathy Chest: Lungs are clear to auscultation with good air entry, there is no wheezing rhonchi or rales appreciated no accessory muscle use, patient is speaking in complete sentences-no chest wall tenderness to palpation CVS: Regular rate and rhythm S1-S2, no murmurs rubs or gallops, pulses are brisk and equal bilaterally ABD: Soft, nondistended, nontender, no rebound guarding or rigidity, bowel sounds are normal, no pulsatile masses appreciated. There is a healed incision in the left inguinal area with some adjacent scar tissue, I am able to palpate her femoral artery in this area. No pulsatile masses or appreciable hernias Extremities: Moving all extremities, no lower extremity tenderness or swelling noted, negative Homans' sign, pulses are brisk and equal bilaterally, dorsalis pedis and posterior tibialis pulses are brisk and equal bilaterally, patient is able to flex her left hip and knee without referring pain into the left inguinal area. Skin: Normal in appearance without rash,pallor, petechiae or purpura Neuro: No focal deficits Constitutional Vital Signs, click to edit/add: Last Vital Signs Temp 97.6 F 10/28/23 21:02 Pulse 66 10/29/23 00:20 Resp 16 10/29/23 00:20 BP 163/100 H 10/28/23 22:01 Pulse Ox 97 10/28/23 21:02 Course Vital Signs Vital signs: Vital Signs Temperature 97.6 F 10/28/23 21:02 Pulse Rate 68 10/28/23 21:02 Respiratory Rate 16 10/28/23 21:02 Blood Pressure 163/101 H 10/28/23 21:02 Pulse Oximetry 97 10/28/23 21:02 Temperature 97.6 F 10/28/23 21:02 Pulse Rate 66 10/29/23 00:20 Respiratory Rate 16 10/29/23 00:20 Blood Pressure 163/100 H 10/28/23 22:01 Pulse Oximetry 97 10/28/23 21:02 Medical Decision Making MDM Narrative Medical decision making narrative: This 87-year-old female presents for evaluation of pain in her left inguinal area where she has a scar. She had carotid endarterectomies in 1961 and states that they went into her groin on the left. They were unable to complete the procedure at that time and sent her back to her room, later that evening she started having bleeding from that area and was taken back to the operating room where she states they pulled out 3 large clots from this area. Earlier in the day after dinner she started having pain in her inguinal area. There is no radiation into her back or down her legs. Her pulses are brisk and equal. She is not having any chest pain or shortness of breath. She takes a daily baby aspirin but is otherwise not on any anticoagulation. She is well-appearing. Her abdomen is soft and nontender. I did not appreciate any pulsatile masses. Again pulses are brisk and equal. She is able to move her left leg without any difficulty. She does admit that she was doing some gardening and yard work yesterday but does not recall injuring herself. An IV was placed and routine labs were ordered. She has a normal white count and hemoglobin. Electrolytes are normal. D-dimer is normal. Troponin is normal. CT angiogram was done to rule out any aneurysm or other vascular anomaly or abnormality in this region. She was medicated with Tylenol with control of her pain and has not required any additional pain medication. There was a lengthy wait for the results of the CT angiogram that was performed and the patient and her neighbor who brought her to the emergency department request to be released. I have reviewed the CT angio myself and do not see any sign of any significant abnormality however I explained to them that I am not a radiologist or in a position to read a specific study such as a CT angiogram. They verbalized understanding. She is not having any pain whatsoever in her inguinal area or hip area and is moving her left extremity all over the bed. I offered to have her stay in the emergency department and her friend could go home until the CT scan has resulted or alternatively she could leave AGAINST MEDICAL ADVICE. She left AGAINST MEDICAL ADVICE verbalizing the understanding of the risk of undiagnosed inguinal area pain. I did explain to her that I will call her with the findings and leave a message on her cell phone or encouraged her to return to the emergency department for worsening symptoms or any concerns. CTA resulted shortly after the patient left the emergency room. It is included in the body of this report. I did call her to let her know that there were some chronic changes and vascular disease but there was no sign of any aneurysm, dissection or bony fracture on the CT scan. She verbalizes understanding of this and request that it be forwarded to Dr. Florian Zimmerman. Medical Records Medical records narrative: [facility] [place] [id number] CT Scan Report Signed Patient: NINA GEORGE MR#: [id number] : 1935 Acct:[id number] Age/Sex: 87 / F ADM Date: 10/28/23 Loc: ER Attending Dr: Ordering Physician: Abbie Guzmán Date of Service: 10/28/23 Procedure(s): CT angio abdomen pelvis Accession Number(s): [id number] cc: Erik Zimmerman D.O.~ The [address] [place], [place] [id number] Patient Name: NINA GEORGE MRN: [id number] date: 1935 Sex: F Assigned Patient Location: ER Current Patient Location: ED.MAIN Accession/Order Number: [id number] Exam Date: 10/28/2023 22:22 Report Date: 10/29/2023 01:56 At the request of: ABBIE MARKER Procedure: CT angio abdomen pelvis EXAM: CT angio abdomen pelvis HISTORY: Left inguinal area pain , R/O aneurysm COMPARISON: None. TECHNIQUE: No precontrast imaging obtained. Post IV contrast, axial scans obtained from lung bases through ischial tuberosities during arterial phase of imaging with coronal and sagittal reconstructions. MIP reconstructions in separate workstation performed in the coronal and sagittal plane and reviewed. Dose reduction techniques were achieved by using automated exposure control and/or adjustment of mA and/or kV according to patient size and/or use of iterative reconstruction technique. CONTRAST: 100 mL Omnipaque 350 IV without event. FINDINGS: Imaged lung bases demonstrate some reticular nodular infiltrate at base of right middle lobe likely chronic infection. There is tortuosity and scattered calcific plaque throughout wall of descending thoracic and abdominal aorta and bilateral common iliac arteries. No dissection or aneurysm. Normal caliber vessels. Mesenteric arteries are patent. Renal arteries are patent. There is a focal prominent stenosis at takeoff of celiac artery some adjacent focal calcific plaque. High-grade stenosis. There is some focal plaque at origin of SMA without significant or high-grade stenosis but there may be some mild stenosis. JULIANN is patent. High-grade calcific plaque at origin of right renal artery at least 50% stenosis. There is prominent calcific plaque at takeoff of left renal artery. No significant stenosis. Scattered calcified hepatic and splenic granulomas. Arterial phase imaging of liver and spleen otherwise unremarkable. No mass or cyst of either. Gallbladder is normal. No biliary duct dilation. Unremarkable pancreas. Normal adrenal glands and kidneys. Moderate diffuse colonic stool burden. No colitis. No significant diverticulosis. Air-filled mild distention of large bowel stool. Small bowel loops are normal in appearance and caliber. No enteritis or obstruction. Urinary bladder is prominently distended. Correlate urinalysis. No wall thickening or luminal defect or retained calculus. No intrarenal or ureteral calculi are identified. No mass or adenopathy is seen. No abdominal wall or inguinal hernia. No ascites or free air or free fluid or acute mesenteric or retroperitoneal inflammatory changes. 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 No lytic or blastic bone lesion. Suspected osteoporosis with bone loss. No fractures. CT/CT angio abdomen pelvis IMPRESSION: 1. No aneurysm or dissection of lower thoracic or abdominal aorta or iliac arteries and pelvis. 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 Branch vessels are patent. 2. Hepatic and splenic granulomas, otherwise negative. 3. Distended urinary bladder, otherwise negative. Correlate with urinalysis output. 4. 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 Lung bases otherwise are clear elsewhere. 5. Additional chronic findings as discussed above. Electronically authenticated by: ROBBIN DIAZ Date: 10/29/2023 01:56 Dictated By: Robbin Diaz D.O. Signed By: Lab Data Lab results reviewed: Yes I reviewed the patient's lab results Labs: Lab Results 10/28/23 10/28/23 Range/Units 21:25 22:35 WBC 5.6 (4.0-11.0) 10^3/uL RBC 4.40 (4.20-5.40) 10^6/uL Hgb 12.9 (12.0-16.0) g/dL Hct 39.3 (36.0-48.0) % MCV 89.3 (81.0-99.0) fL MCH 29.3 (26.7-34.0) pg MCHC 32.8 (29.9-35.2) g/dL RDW 12.6 (11.0-15.0) % Plt Count 193 (150-450) 10^3/uL MPV 10.0 (9.5-13.5) fL Neut % (Auto) 54.8 (43.0-75.0) % Lymph % (Auto) 27.5 (20.5-60.0) % [place] % (Auto) 11.2 (1.7-12.0) % Eos % (Auto) 5.5 (0.9-7.0) % Baso % (Auto) 0.5 (0.2-2.0) % Neut # (Auto) 3.1 (1.4-6.5) 10^3/uL Lymph # (Auto) 1.5 (1.2-3.8) 10^3/uL [place] # (Auto) 0.6 (0.3-0.8) 10^3/uL Eos # (Auto) 0.3 (0.0-0.7) 10^3/uL Baso # (Auto) 0.0 (0.0-0.1) 10^3/uL Abs Immat Gran (auto) 0.03 (0.00-0.03) 10^3/uL Imm/Tot Granulo (auto) 0.5 (0.0-0.5) % D-Dimer 0.45 (<=0.59) mg/L FEU Sodium 135 L (136-145) mmol/L Potassium 4.0 (3.5-5.1) mmol/L Chloride 99 (98-107) mmol/L Carbon Dioxide 29.6 (21.0-32.0) mmol/L Anion Gap 10.4 BUN 24.0 H (7.0-18.0) mg/dL Creatinine 1.07 H (0.55-1.02) mg/dL Est GFR ( Amer) 58 L (>=60) Est GFR (Non-Af Amer) 48 L (>=60) BUN/Creatinine Ratio 22.4 Glucose 84 (74-106) mg/dL Lactate 0.8 (0.4-2.0) mmol/L Calcium 9.3 (8.5-10.1) mg/dL Total Bilirubin 0.6 (0.2-1.0) mg/dL AST 19 (15-37) U/L ALT 16 (14-59) U/L Alkaline Phosphatase 49 (46-116) U/L Troponin I High Sens 25.6 (4.0-51.3) pg/mL Total Protein 7.3 (6.4-8.2) g/dL Albumin 4.0 (3.4-5.0) g/dL Globulin 3.3 g/dL Albumin/Globulin Ratio 1.2 Urine Color Lt. yellow (YELLOW) Urine Clarity Clear (CLEAR) Urine pH 7.0 (5.0-9.0) Ur Specific [place] 1.010 (1.005-1.025) Urine Protein Negative (NEG/TRACE) mg/dL Urine Glucose (UA) Negative (NEGATIVE) mg/dL Urine Ketones Negative (NEGATIVE) mg/dL Urine Occult Blood Negative (NEGATIVE) Urine Nitrite Negative (NEGATIVE) Urine Bilirubin Negative (NEGATIVE) Urine Urobilinogen 0.2 (0.2-1.0) EU/dL Ur Leukocyte Esterase Negative (NEGATIVE) Urine RBC 0-2 (0-2) #/HPF Urine WBC 0-2 A (NONE SEEN) #/HPF Ur Squamous Epith Cells None seen (NONE/RARE) #/LPF Urine Crystals None seen (None Seen) #/HPF Urine Bacteria None seen (NONE SEEN) #/HPF Urine Casts None seen (NONE SEEN) #/LPF Urine Mucus None seen (NONE SEEN) Ur Culture Indicated? No ECG Data Attestation: I personally reviewed and interpreted this ECG as follows: (Sinus rhythm at 69 bpm, normal axis, nonspecific ST changes with mild ST depression in leads II, aVF, V5 and V6) Discharge Plan Discharge Stand Alone Forms: Portal Instructions Chief Complaint: Extremity Problem, Nontraumatic Clinical Impression: Left inguinal pain Patient Disposition: Left Against Medical Advice Time of Disposition Decision: 01:48 Condition: Good Prescriptions / Home Meds: No Action omeprazole 40 mg capsule,delayed release(DR/EC) dorzolamide-timolol 22.3-6.8 mg/mL drops OPHTHALMIC (EYE) aspirin 325 mg tablet 325 mg PO DAILY alprazolam [Xanax] 0.25 mg tablet 0.25 mg PO DAILY PRN (Reason: anxiety) acetaminophen [Tylenol Arthritis Pain] 650 mg tablet extended release 650 mg PO Q8H PRN (Reason: pain) Print Language: Anguillan Instructions: Heat Pack Application (ED), Groin Pain (ED) Additional Instructions: Return to the emergency department for recurrent pain, lower extremity weakness numbness, chest pain shortness of breath or any concerns. Referrals: Erik Zimmerman, [Primary Care Provider] - As soon as possible
--- NOTE | 2023-10-28 21:25 | CT_ITS ---
[address] [address] Patient Name: NINA GEORGE MRN: [id number] date: 1935 Sex: F Assigned Patient Location: ER Current Patient Location: .MAIN Accession/Order Number: [id number] Exam Date: 10/28/2023 22:22 Report Date: 10/29/2023 01:56 At the request of: CHRISTOPHER MARKER Procedure: CT angio abdomen pelvis EXAM: CT angio abdomen pelvis HISTORY: Left inguinal area pain , R/O aneurysm COMPARISON: None. TECHNIQUE: No precontrast imaging obtained. Post IV contrast, axial scans obtained from lung bases through ischial tuberosities during arterial phase of imaging with coronal and sagittal reconstructions. MIP reconstructions in separate workstation performed in the coronal and sagittal plane and reviewed. Dose reduction techniques were achieved by using automated exposure control and/or adjustment of mA and/or kV according to patient size and/or use of iterative reconstruction technique. CONTRAST: 100 mL Omnipaque 350 IV without event. FINDINGS: Imaged lung bases demonstrate some reticular nodular infiltrate at base of right middle lobe likely chronic infection. There is tortuosity and scattered calcific plaque throughout wall of descending thoracic and abdominal aorta and bilateral common iliac arteries. No dissection or aneurysm. Normal caliber vessels. Mesenteric arteries are patent. Renal arteries are patent. There is a focal prominent stenosis at takeoff of celiac artery some adjacent focal calcific plaque. High-grade stenosis. There is some focal plaque at origin of SMA without significant or high-grade stenosis but there may be some mild stenosis. JULIANN is patent. High-grade calcific plaque at origin of right renal artery at least 50% stenosis. There is prominent calcific plaque at takeoff of left renal artery. No significant stenosis. Scattered calcified hepatic and splenic granulomas. Arterial phase imaging of liver and spleen otherwise unremarkable. No mass or cyst of either. Gallbladder is normal. No biliary duct dilation. Unremarkable pancreas. Normal adrenal glands and kidneys. Moderate diffuse colonic stool burden. No colitis. No significant diverticulosis. Air-filled mild distention of large bowel stool. Small bowel loops are normal in appearance and caliber. No enteritis or obstruction. Urinary bladder is prominently distended. Correlate urinalysis. No wall thickening or luminal defect or retained calculus. No intrarenal or ureteral calculi are identified. No mass or adenopathy is seen. No abdominal wall or inguinal hernia. No ascites or free air or free fluid or acute mesenteric or retroperitoneal inflammatory changes. 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 No lytic or blastic bone lesion. Suspected osteoporosis with bone loss. No fractures. CT/CT angio abdomen pelvis IMPRESSION: 1. No aneurysm or dissection of lower thoracic or abdominal aorta or iliac arteries and pelvis. 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 Branch vessels are patent. 2. Hepatic and splenic granulomas, otherwise negative. 3. Distended urinary bladder, otherwise negative. Correlate with urinalysis output. 4. 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 Lung bases otherwise are clear elsewhere. 5. Additional chronic findings as discussed above. Electronically authenticated by: GUCCI VILLELA Date: 10/29/2023 01:56
[2023-10-28 21:48] LABS: Basophils Percent Auto 0.5 % (0.2-2.0); Eosinophils Absolute Auto 0.3 10^3/uL (0.0-0.7); Eosinophils Percent Auto 5.5 % (0.9-7.0); Hematocrit 39.3 % (36.0-48.0); Hemoglobin 12.9 g/dL (12.0-16.0); Immature Granulocytes Abs Auto 0.03 10^3/uL (0.00-0.03); Immature Granulocytes Pct Auto 0.5 % (0.0-0.5); Lymphocytes Absolute Auto 1.5 10^3/uL (1.2-3.8); Lymphocytes Percent Auto 27.5 % (20.5-60.0); Mean Corpuscular HGB Conc 32.8 g/dL (29.9-35.2); Mean Corpuscular Hemoglobin 29.3 pg (26.7-34.0); Mean Corpuscular Volume 89.3 fL (81.0-99.0); Monocytes Absolute Auto 0.6 10^3/uL (0.3-0.8); Monocytes Percent Auto 11.2 % (1.7-12.0); Neutrophils Absolute Auto 3.1 10^3/uL (1.4-6.5); Neutrophils Percent Auto 54.8 % (43.0-75.0); Platelet Count 193 10^3/uL (150-450); Red Cell Distribution Width 12.6 % (11.0-15.0); White Blood Count 5.6 10^3/uL (4.0-11.0)
[2023-10-28] MEDS: ACETAMINOPHEN 325 MG TABLET 650 MG PO (21:56)
[2023-10-28 22:02] LABS: D Dimer 0.45 mg/L FEU (<=0.59)
[2023-10-28 22:06] LABS: Alanine Aminotransferase 16 U/L (14-59); Albumin Globulin Ratio 1.2; Alkaline Phosphatase 49 U/L (46-116); Anion Gap 10.4; Aspartate Amino Transferase 19 U/L (15-37); BUN Creatinine Ratio 22.4; Bilirubin Total 0.6 mg/dL (0.2-1.0); Calcium 9.3 mg/dL (8.5-10.1); Carbon Dioxide 29.6 mmol/L (21.0-32.0); Chloride 99 mmol/L (98-107); Estimated GFR (African America 58 (>=60); Estimated GFR (Non-African Ame 48 (>=60); Globulin 3.3 g/dL; Glucose 84 mg/dL (74-106); Lactate/Lactic Acid 0.8 mmol/L (0.4-2.0); Sodium 135 mmol/L (136-145); Total Protein 7.3 g/dL (6.4-8.2); Troponin I High Sensitivity 25.6 pg/mL (4.0-51.3)
[2023-10-28 22:43] LABS: Bilirubin Urine NEGATIVE (NEGATIVE); Blood Urine NEGATIVE (NEGATIVE); Clarity Urine CLEAR (CLEAR); Color Urine LT. YELLOW (YELLOW); Glucose Urine UA NEGATIVE (NEGATIVE); Ketones Urine NEGATIVE (NEGATIVE); Leukocyte Esterase Urine NEGATIVE (NEGATIVE); Nitrite Urine NEGATIVE (NEGATIVE); Protein Urine NEGATIVE (NEG/TRACE); Urobilinogen Urine 0.2 EU/dL (0.2-1.0)
[2023-10-28 22:49] LABS: Bacteria Urine NONE SEEN #/HPF (NONE SEEN); Cast Seen? NONE SEEN #/LPF (NONE SEEN); Crystals Seen? None Seen #/HPF (None Seen); Mucus Urine NONE SEEN (NONE SEEN); RBC Urine 0-2 #/HPF (0-2); Squamous Epithelial Cell Urine NONE SEEN #/LPF (NONE/RARE); Urine Culture Indicated NO; WBC Urine 0-2 #/HPF (NONE SEEN)
[2023-10-29] VITALS: PULSE 64
[2023-10-29 00:10] VITALS: PULSE 67
[2023-10-29 00:20] VITALS: PULSE 66
== END 2023-10-29 01:55 | disposition left against medical advice (07) ==
PROVIDERS: Emergency Provider Emergency Medicine; PCP Internal Medicine
DX: R10.32 Left lower quadrant pain (principal); Z53.29 Procedure and treatment not carried out because of patient's decision for other reasons; Z79.82 Long term (current) use of aspirin
CPT/HCPCS: 36415; 74174; 80053; 81001; 83605; 84484; 85025; 85378; 93005; 99285; Q9967